=== PATIENT | male | born 1955 | race Hispanic/Latino ===

== ENCOUNTER 2018-06-26 21:13 | Emergency (ER) | payer BC ==
[2018-06-26 21:48] LABS: Absolute Lymphocytes (CBC) 2.2 K/uL (0.7-4.9); Absolute Monocytes 0.6 K/uL (0.1-1.3); Absolute Neutrophil 5.6 K/uL (1.8-8.0); Basophils % 0.4 % (0-1.3); Eosinophils % 2.2 % (0-4.4); Lymphocytes % 25.9 % (15.3-44.8); Monocytes % 6.5 % (3.3-12.3); RBC Red Blood Cell Count 2.26 M/uL (4.33-5.43)
[2018-06-26 21:51] LABS: Hematocrit 20.7 % (39.6-49.0)
[2018-06-26 22:00] LABS: Protime INR 1.11
[2018-06-26 22:10] LABS: ALT/SGPT 22 U/L (12-78); AST/SGOT 14 U/L (15-37); Albumin 2.8 g/dL (3.4-5.0); Alkaline Phosphatase 67 U/L (45-117); BUN Blood Urea Nitrogen 37 mg/dL (7-18); Bicarbonate 25 mmol/L (21-32); Bilirubin Direct < 0.1 mg/dL (0-0.2); Bilirubin Total 0.3 mg/dL (0.2-1.0); Glucose Level 128 mg/dL (74-106); Magnesium 1.8 mg/dL (1.8-2.4); NT PRO-BNP 12 pg/mL (<125); Potassium 4.1 mmol/L (3.5-5.1); Sodium Level 146 mmol/L (136-145); Troponin (Emerg Dept Use Only) < 0.02 ng/mL (0.0-0.045)
--- NOTE | 2018-06-26 23:16 | ER ---
Nurse's Notes [facility] Name: Mp Moreno Age: 62 yrs Sex: Male : 1955 Arrival Date: 06/26/2018 Time: 21:15 Bed 6 Private MD: Diagnosis: Gastrointestinal hemorrhage, unspecified;Acute peptic ulcer, site unspecified, with hemorrhage Presentation: 06/26 21:10 Presenting complaint: Patient states: that he has been having chest pressure on and off fc all day. When it comes it last only a couple of minutes. Denies any nausea or vomiting or shortness of breath. Has also been feeling weak and family stated he looked pale. Having black stools x 2 days. Transition of care: patient was not received from another setting of care. Onset of symptoms was June 26, 2018. Risk Assessment: Do you want to hurt yourself or someone else? Patient reports no desire to harm self or others. Initial Sepsis Screen: Does the patient meet any 2 criteria? HR > 90 bpm. Yes Does the patient have a suspected source of infection? No. Patient's initial sepsis screen is negative. Care prior to arrival: Medication(s) given: Normal saline infusion, 200 ml IV initiated. 20 GA, in the left antecubital area. 21:10 Method Of Arrival: EMS: [facility] 21:10 Acuity: ANTONETTE 3 fc Historical: - Allergies: 21:25 NKDA; fc - Home Meds: 21:25 ezetimibe oral oral 1 tab once daily [Active]; aspirin 81 mg Oral chew 1 tab once daily fc [Active]; losartan 50 mg oral tab 1 tab once daily [Active]; niacin 500 mg Oral cpER 1 caps nightly [Active]; simvastatin 40 mg Oral tab 1 tab once daily [Active]; - PMHx: 21:25 Hyperlipidemia; Hypertension; Myocardial infarction; High Cholesterol; Kidney stones; fc - PSHx: 21:25 Heart stents; Appendectomy; Lithotripsy; fc - Immunization history:: Last tetanus immunization: unknown. - Social history:: Smoking status: Patient/guardian denies using tobacco, Patient uses alcohol, occasionally. - Ebola Screening: : Patient negative for fever greater than or equal to 101.5 degrees Fahrenheit, and additional compatible Ebola Virus Disease symptoms Patient denies exposure to infectious person Patient denies travel to an Ebola-affected area in the 21 days before illness onset. Screenin:10 Abuse screen: Denies threats or abuse. Nutritional screening: No deficits noted. fc Tuberculosis screening: No symptoms or risk factors identified. Fall Risk None identified. Assessment: 22:11 General: Appears in no apparent distress. Behavior is calm, cooperative. Pain: ak1 Complains of pain in chest Pain does not radiate. Pain began today. Neuro: No deficits noted. Cardiovascular: Reports chest pain, weakness. Respiratory: No deficits noted. GI: Abdomen is round Bowel sounds present X 4 quads. Abd is soft and non tender X 4 quads. Reports black stools. : No signs and/or symptoms were reported regarding the genitourinary system. EENT: No signs and/or symptoms were reported regarding the EENT system. Derm: Skin is pale, Skin temperature is cool. Musculoskeletal: No signs and/or symptoms reported regarding the musculoskeletal system. 22:45 Reassessment: pt family, Inessa Moreno, can be contacted at [phone]. family is ak1 leaving to go home to gather personal belongings. 22:48 Reassessment: Patient appears in no apparent distress at this time. Patient and/or cc3 family updated on plan of care and expected duration. Pain level reassessed. Patient is alert, oriented x 3, equal unlabored respirations, skin warm/dry/pink. Hemoglobin of 6.8, patient consented for PRBC transfusion signed by the patient himself. 23:29 Reassessment: No changes from previously documented assessment. Patient and/or family ak1 updated on plan of care and expected duration. Pain level reassessed. Patient is alert, oriented x 3, equal unlabored respirations, skin warm/dry/pink. pt and family informed of need to transfer. pt report called to Cassidy LYON for [facility] 1 Bed4. Cassidy informed of 1 unit of PRBC to be infusing in route to [facility]. 23:35 Reassessment: Patient appears in no apparent distress at this time. Patient and/or cc3 family updated on plan of care and expected duration. Pain level reassessed. Patient is alert, oriented x 3, equal unlabored respirations, skin warm/dry/pink. First unit of PRBC with unit number [id number] counterchecked and countersigned with charge nurse Becky, baseline vital signs taken and recorded then started the blood transfusion. Closely monitored the patient. See transfusion record form for charted vital signs. Patient denies pain at this time. 06/27 00:05 Reassessment: Patient appears in no apparent distress at this time. Patient and/or cc3 family updated on plan of care and expected duration. Pain level reassessed. Patient is alert, oriented x 3, equal unlabored respirations, skin warm/dry/pink. Monitored the patient closely for any untoward blood transfusion reactions. Patient denies pain at this time. 00:23 Reassessment: Patient appears in no apparent distress at this time. Patient and/or cc3 family updated on plan of care and expected duration. Pain level reassessed. Patient is alert, oriented x 3, equal unlabored respirations, skin warm/dry/pink. [facility] came for transport and handed over to EMS staff [facility] for continuity of care and management with ongoing first unit of PRBC transfusion. Patient denies pain at this time. Patient states feeling better. Vital Signs: 06/26 21:10 BP 115 / 62; Pulse 92; Resp 16; Temp 97.9(O); Pulse Ox 100% on R/A; Weight 68.04 kg fc (R); Height 5 ft. 5 in. (165.10 cm); Pain 0/10; 22:15 BP 107 / 60; Pulse 87; Resp 16; Pulse Ox 100% on R/A; ak1 23:00 BP 117 / 64; Pulse 77; Resp 17; Pulse Ox 100% on R/A; ak1 23:35 BP 112 / 72; Pulse 77; Resp 18 S; Temp 97.9(O); Pulse Ox 99% on R/A; cc3 23:40 BP 110 / 64; Pulse 80; Resp 17 S; Temp 97.9(O); Pulse Ox 100% on R/A; cc3 23:45 BP 112 / 64; Pulse 81; Resp 15 S; Temp 97.9(O); Pulse Ox 100% on R/A; cc3 23:50 BP 107 / 66; Pulse 78; Resp 19 S; Temp 98.1(O); Pulse Ox 99% on R/A; cc3 06/27 00:05 BP 112 / 65; Pulse 73; Resp 18 S; Temp 97.9(O); Pulse Ox 98% on R/A; cc3 06/26 21:10 Body Mass Index 24.96 (68.04 kg, 165.10 cm) ED Course: 06/26 21:10 Arm band placed on Patient placed in an exam room, on a stretcher. fc 21:10 Patient has correct armband on for positive identification. Placed in gown. Bed in low fc position. Call light in reach. Side rails up X2. telemetry monitor on. Pulse ox on. NIBP on. 21:10 No provider procedures requiring assistance completed. Maintain EMS IV. Dressing fc intact. Good blood return noted. Site clean \T\ dry. Gauge \T\ site: 20 gauge to left a/c. Patient maintains SpO2 saturation greater than 95% on room air. 21:15 Patient arrived in ED. ds1 21:18 Allan Sandoval MD is Attending Physician. 21:21 Triage completed. 21:22 Bridgette Kiser is Primary Nurse. cc3 21:30 XRAY Chest (1 view) In Process Unspecified. EDMS 21:51 Notified ED physician of a critical lab result(s). 6.8 Hgb, Hct. 20.7. ak1 23:31 Consent for blood and/or blood product transfusion explained by staff, signed by ak1 patient. 23:31 Patient transferred, IV remains in place. ak1 Administered Medications: No medications were administered Outcome: 23:16 ER care complete, transfer ordered by . 23:31 Transferred by ground EMS to [facility], Transfer form completed. ak1 X-rays sent w/ patient. Note: report given to Cassidy LYON for [facility] 1 Bed4. 23:31 Instructed on the need for transfer. 06/27 00:30 Condition: stable cc3 00:32 Patient left the ED. cc3 Signatures: Dispatcher [employer] EDMS Becky Dotson, RN SONALI María Carrasco ds1 Barbie Peterson RN RN ak Allan Sandoval MD MD Bridgette Kiser cc3 Corrections: (The following items were deleted from the chart) 00:03 06/26 23:35 Reassessment: Patient appears in no apparent distress at this time. Patient cc3 and/or family updated on plan of care and expected duration. Pain level reassessed. Patient is alert, oriented x 3, equal unlabored respirations, skin warm/dry/pink. First unit of PRBC with unit number [id number] counterchecked and countersigned with charge nurse Becky, baseline vital signs taken and recorded then started the blood transfusion. Closely monitored the patient. Patient denies pain at this time. cc3
--- NOTE | 2018-06-26 23:16 | EDPHYS ---
Physician Documentation [facility] [place], [place] Name: Mp Moreno Age: 62 yrs Sex: Male : 1955 Arrival Date: 06/26/2018 Time: 21:15 Bed 6 Private MD: ED Physician Allan Sandoval HPI: 06/26 23:11 This 62 yrs old Male presents to ER via EMS with complaints of Chest Pressure. gs 23:11 The patient or guardian reports chest pain that is located primarily in the anterior gs chest wall. Onset: this morning. The pain does not radiate. Associated signs and symptoms: Pertinent positives: shortness of breath, black tarry stool, Pertinent negatives: abdominal pain. The chest pain is described as a heaviness. Duration: The patient or guardian reports multiple episodes, that are intermittent, that wax and wane, with no pattern. Modifying factors: the symptoms are aggravated by exertion. Severity of pain: At its worst the pain was moderate in the emergency department the pain is unchanged. The patient has experienced similar episodes in the past, a few times. Historical: - Allergies: 21:25 NKDA; fc - Home Meds: 21:25 ezetimibe oral oral 1 tab once daily [Active]; aspirin 81 mg Oral chew 1 tab once daily fc [Active]; losartan 50 mg oral tab 1 tab once daily [Active]; niacin 500 mg Oral cpER 1 caps nightly [Active]; simvastatin 40 mg Oral tab 1 tab once daily [Active]; - PMHx: 21:25 Hyperlipidemia; Hypertension; Myocardial infarction; High Cholesterol; Kidney stones; fc - PSHx: 21:25 Heart stents; Appendectomy; Lithotripsy; fc - Immunization history:: Last tetanus immunization: unknown. - Social history:: Smoking status: Patient/guardian denies using tobacco, Patient uses alcohol, occasionally. - Ebola Screening: : Patient negative for fever greater than or equal to 101.5 degrees Fahrenheit, and additional compatible Ebola Virus Disease symptoms Patient denies exposure to infectious person Patient denies travel to an Ebola-affected area in the 21 days before illness onset. ROS: 23:11 All other systems are negative. gs Exam: 23:11 Head/Face: Normocephalic, atraumatic. Eyes: Pupils equal round and reactive to light, gs extra-ocular motions intact. Lids and lashes normal. Conjunctiva and sclera are non-icteric and not injected. Cornea within normal limits. Periorbital areas with no swelling, redness, or edema. ENT: Nares patent. No nasal discharge, no septal abnormalities noted. Tympanic membranes are normal and external auditory canals are clear. Oropharynx with no redness, swelling, or masses, exudates, or evidence of obstruction, uvula midline. Mucous membranes moist. Neck: Trachea midline, no thyromegaly or masses palpated, and no cervical lymphadenopathy. Supple, full range of motion without nuchal rigidity, or vertebral point tenderness. No Meningismus. Chest/axilla: Normal chest wall appearance and motion. Nontender with no deformity. No lesions are appreciated. Respiratory: Lungs have equal breath sounds bilaterally, clear to auscultation and percussion. No rales, rhonchi or wheezes noted. No increased work of breathing, no retractions or nasal flaring. Abdomen/GI: Soft, non-tender, with normal bowel sounds. No distension or tympany. No guarding or rebound. No evidence of tenderness throughout. Back: No spinal tenderness. No costovertebral tenderness. Full range of motion. Skin: Warm, dry with normal turgor. Normal color with no rashes, no lesions, and no evidence of cellulitis. MS/ Extremity: Pulses equal, no cyanosis. Neurovascular intact. Full, normal range of motion. Neuro: Awake and alert, GCS 15, oriented to person, place, time, and situation. Cranial nerves II-XII grossly intact. Motor strength 5/5 in all extremities. Sensory grossly intact. Cerebellar exam normal. Normal gait. 23:11 Constitutional: The patient appears alert, awake. 23:11 Cardiovascular: Rate: normal, Rhythm: regular, Pulses: no pulse deficits are appreciated, Heart sounds: murmur, systolic, grade 2 over 6, Edema: is not appreciated. 23:11 ECG was reviewed by the Attending Physician. Vital Signs: 21:10 BP 115 / 62; Pulse 92; Resp 16; Temp 97.9(O); Pulse Ox 100% on R/A; Weight 68.04 kg fc (R); Height 5 ft. 5 in. (165.10 cm); Pain 0/10; 22:15 BP 107 / 60; Pulse 87; Resp 16; Pulse Ox 100% on R/A; ak1 23:00 BP 117 / 64; Pulse 77; Resp 17; Pulse Ox 100% on R/A; ak1 23:35 BP 112 / 72; Pulse 77; Resp 18 S; Temp 97.9(O); Pulse Ox 99% on R/A; cc3 23:40 BP 110 / 64; Pulse 80; Resp 17 S; Temp 97.9(O); Pulse Ox 100% on R/A; cc3 23:45 BP 112 / 64; Pulse 81; Resp 15 S; Temp 97.9(O); Pulse Ox 100% on R/A; cc3 23:50 BP 107 / 66; Pulse 78; Resp 19 S; Temp 98.1(O); Pulse Ox 99% on R/A; cc3 06/27 00:05 BP 112 / 65; Pulse 73; Resp 18 S; Temp 97.9(O); Pulse Ox 98% on R/A; cc3 06/26 21:10 Body Mass Index 24.96 (68.04 kg, 165.10 cm) fc MDM: 06/26 21:56 Patient medically screened. 23:11 Differential diagnosis: abnormal EKG, coronary artery disease congestive heart failure gs gi bleed. Data reviewed: vital signs, nurses notes, lab test result(s), EKG, radiologic studies. 06/26 21:18 Order name: Basic Metabolic Panel; Complete Time: 22:29 06/26 21:18 Order name: CBC with Diff; Complete Time: 21:56 06/26 21:18 Order name: LFT's; Complete Time: 22:29 06/26 21:18 Order name: Magnesium; Complete Time: 22:29 06/26 21:18 Order name: NT PRO-BNP; Complete Time: 22:29 06/26 21:18 Order name: PT-INR; Complete Time: 22:29 06/26 21:18 Order name: Troponin (emerg Dept Use Only); Complete Time: 22:29 06/26 21:18 Order name: XRAY Chest (1 view) 06/26 21:18 Order name: EKG; Complete Time: 21:20 06/26 21:18 Order name: Cardiac monitoring; Complete Time: 21:32 06/26 21:18 Order name: Type And Screen 06/26 22:37 Order name: Packed RBC Leukored -1 [facility] 06/26 23:05 Order name: ABO/RH no charge; Complete Time: 23:16 [facility] 06/26 21:18 Order name: EKG - Nurse/Tech; Complete Time: 21:32 06/26 21:18 Order name: IV Saline Lock; Complete Time: 21:32 06/26 21:18 Order name: Labs collected and sent; Complete Time: :40 06/26 21:18 Order name: O2 Per Protocol; Complete Time: :33 06/26 21:18 Order name: O2 Sat Monitoring; Complete Time: :33 EC:11 Rate is 83 beats/min. Rhythm is regular. FL interval is normal. QRS interval is normal. gs Q waves are Old. T waves are Flattened. No ST changes noted. Clinical impression: NSR w/ Non-specific ST/T Changes. Interpreted by me. Administered Medications: No medications were administered Disposition: 23:11 Critical Care:. Disposition: 06/26/18 23:16 Transfer ordered to [facility]. Diagnosis are Gastrointestinal hemorrhage, unspecified, Acute peptic ulcer, site unspecified, with hemorrhage. - Reason for transfer: Higher level of care. - Accepting physician is [facility]. - Condition is Stable. - Problem is new. - Symptoms have improved. Critical care time excluding procedures: 23:11 Critical care time: Bedside Care: 10 minutes, Consultation: 10 minutes, Family gs Intervention: 10 minutes. Total time: 30 minutes Signatures: Dispatcher [employer] [facility] Becky Dotson RN RN Allan Roberts MD MD Bridgette Kiser cc3 Corrections: (The following items were deleted from the chart) 06/27 00:32 06/26 23:16 06/26/2018 23:16 Transfer ordered to [facility]. cc3 Diagnosis is Gastrointestinal hemorrhage, unspecified; Acute peptic ulcer, site unspecified, with hemorrhage. Reason for transfer: Higher level of care. Accepting physician is [facility]kit[facility]. Condition is Stable. Problem is new. Symptoms have improved.
[2018-06-26] MEDS ORDERED: NA CHLORIDE 0.9% 500 ML ONE (23:31)
[2018-06-27 01:53] VITALS: BP 107/66; TEMP 98.1; O2SAT 99
--- NOTE | 2018-06-27 08:00 | RAD REPORT ---
EXAM DESCRIPTION: RAD - Chest Single View - 06/26/2018 9:31 pm CLINICAL HISTORY: Chest pain and pressure COMPARISON: July 2015 TECHNIQUE: AP portable chest image was obtained 2130 hours . FINDINGS: Lung volumes are low. No peripheral mass, consolidation or failure finding. Lung markings are similar to comparison. Heart and vasculature are normal. No measurable pleural effusion and no pn eumothorax. No acute bony abnormality seen. No acute aortic findings suspected. IMPRESSION: No acute cardiopulmonary process. No significant interval change.
--- NOTE | 2018-06-27 16:32 | EKG ---
Test Date: 2018-06-26 Test Time: 21:17:47 Box Spinner: CLEMENTE MEASUREMENT RESULTS: Intervals: Rate: 83 OK: 192 QRSD: 74 QT: 368 QTc: 432 [place]: P: 38 OK: 192 QRS: 0 T: 93 INTERPRETIVE STATEMENTS: Normal sinus rhythm Anteroseptal infarct, age undetermined Abnormal ECG Compared to ECG 07/19/2015 06:27:26 Sinus bradycardia no longer present Left-axis deviation no longer present Myocardial infarct finding still present Electronically Signed On 06-27-18 16:31:28 CDT by Rudy Bustamante
== END 2018-06-27 00:32 | disposition short-term general hospital (02) ==
LOC: ER 21:13
PROC: 30233N1 Transfusion of Nonautologous Red Blood Cells into Peripheral Vein, Percutaneous Approach (ICD-10-PCS; principal; 2018-06-27)
DX: K27.0 Acute peptic ulcer, site unspecified, with hemorrhage (principal); I10 Essential (primary) hypertension; E78.5 Hyperlipidemia, unspecified; E78.00 Pure hypercholesterolemia, unspecified; I25.2 Old myocardial infarction; Z79.82 Long term (current) use of aspirin; Z95.818 Presence of other cardiac implants and grafts
CPT/HCPCS: 36415; 71045; 80048; 80076; 83735; 83880; 84484; 85025; 85610; 86850; 86900; 86901; 93005; 99285; P9016

== ENCOUNTER 2018-09-19 18:09 | Emergency (ER) | payer BC ==
--- OUTSIDE RECORDS SUMMARY | 2018-09-19 18:13 | XMS REPORT | Clinical Summary ---
:1955 Author Organization [facility] Address [address] [place] [address] Care Team Providers Name Role Phone Unavailable Primary Care Provider Unavailable Allergies No Known Allergies Medications Medication Sig Dispensed Refills Start Date End Date Status ezetimibe (ZETIA) 10 Take 10 mg by 0 Active mg mouth daily. tabletIndications: hyperlipidemia aspirin 81 MG EC Take 81 mg by 0 Active tabletIndications: mouth daily. myocardial infarction prevention, thrombosis prevention after PCI niacin (SLO-NIACIN) Take 500 mg by 0 Active 500 mg tablet mouth 2 (two) times daily with breakfast and dinner. losartan (COZAAR) 50 Take 50 mg by 0 Active MG tablet mouth daily. pantoprazole Take 1 tablet 60 tablet 2 07/01/2018 Active (PROTONIX) 40 MG (40 mg total) 9 tablet by mouth 2 (two) times daily for 90 days. nmpd-fwtgrmdgrjdmx-i Take 1 tablet 120 tablet 0 07/01/2018 Active inerals by mouth daily 9 (THERAGRAN-M) 9 mg for 120 days. iron-400 mcg Tab tablet simvastatin (ZOCOR) Take 1 tablet 0 07/16/2018 Active 40 MG tablet (40 mg total) by mouth nightly. simvastatin (ZOCOR) Take 40 mg by 0 Discontinued 40 MG tablet mouth nightly. 9 clarithromycin Take 1 tablet 28 tablet 0 07/01/2018 (BIAXIN) 500 MG (500 mg total) 9 tablet by mouth 2 (two) times daily for 14 days. amoxicillin (AMOXIL) Take 2 56 capsule 0 07/01/2018 500 MG capsule capsules 9 (1,000 mg total) by mouth 2 (two) times daily for 14 days. Active Problems Problem Noted Date Duodenal ulcer with hemorrhage but without obstruction 06/28/2018 Anemia, secondary 06/28/2018 Hiatal hernia 06/28/2018 Melena 06/28/2018 Hyperlipidemia 06/28/2018 GIB (gastrointestinal bleeding) 06/27/2018 Coronary artery disease involving [place] coronary artery of [place] heart 06/27 without angina pectoris Encounters Date Type Specialty Care Team Description 06/27/2018 Anesthesia Event Gastroenterology Saloni Light CRNA 06/27/2018 Surgery Gastroenterology Ariana, UPPER ENDOSCOPY,BIOPSY MD Marilee 06/27/2018 Hospital Cardiology Agustina, Gastrointestinal hemorrhage, unspecified gastrointestinal hemorrhage type; - Encounter Babith Anemia, secondary; 07/01/2018 MD Rasheed Coronary artery disease involving [place] coronary artery of [place] heart without angina pectoris; Dorcas Duodenal ulcer with hemorrhage but without obstruction; Eugene Limon Hyperlipidemia, unspecified hyperlipidemia type MD Miguel Tinsley Narendra, MD 06/27/2018 Orders Only General Internal Medicine 06/27/2018 Travel after 09/18/2017 Family History Medical History Relation Name Comments Heart disease Father Diabetes Mother Hypertension Mother Relation Name Status Comments Father Mother Social History Tobacco Use Types Packs/Day Years Used Date Former Smoker Smokeless Tobacco: Former User Comments: PAST SMOKER (SMOKED FOR 3 [id number] - [id number]) Alcohol Use Drinks/Week oz/Week Comments Yes 5 Cans of beer 3.0 ON OCCASION WEEKEND Sex Assigned at Date Recorded Not on file Job Start Date Occupation Industry Not on file Not on file Not on file Travel History Travel Start Travel End No recent travel history available. Last Filed Vital Signs Vital Sign Reading Time Taken Blood Pressure 139/72 07/01/2018 7:00 AM CDT Pulse 58 07/01/2018 7:00 AM CDT Temperature 35.9 C (96.6 F) 07/01/2018 7:00 AM CDT Respiratory Rate 17 07/01/2018 7:00 AM CDT Oxygen Saturation 98% 07/01/2018 7:00 AM CDT Inhaled Oxygen Concentration - - Weight 67.9 kg (149 lb 9.6 oz) 06/29/2018 6:00 AM CDT Height 172.7 cm (5' 8") 06/27/2018 1:41 AM CDT Body Mass Index 22.75 06/29/2018 6:00 AM CDT Plan of Treatment Not on file Procedures Procedure Name Priority Date/Time Associated Comments Diagnosis REPORT OF PROCEDURE - 2018 9:41 ENDOSCOPY SCAN AM CDT RHYTHM STRIP - SCAN 2018 9:41 AM CDT TRANSFUSION SERVICE 07/02/2018 6:00 REPORT - SCAN PM CDT PREPARE LEUKO-REDUCED Routine 07/02/2018 12:41 Results for this RBC AM CDT procedure are in the results section. TRANSFUSION SERVICE 07/01/2018 6:00 REPORT - SCAN PM CDT CBC W/PLT COUNT & Routine 07/01/2018 8:34 Results for this AUTO DIFFERENTIAL AM CDT procedure are in the results section. CBC W/PLT COUNT & Routine 07/01/2018 8:34 Results for this AUTO DIFFERENTIAL AM CDT procedure are in the results section. BASIC METABOLIC PANEL Routine 07/01/2018 3:51 Results for this (7) AM CDT procedure are in the results section. CBC W/PLT COUNT & Routine 06/30/2018 8:17 Results for this AUTO DIFFERENTIAL PM CDT procedure are in the results section. CBC W/PLT COUNT & Routine 06/30/2018 8:17 Results for this AUTO DIFFERENTIAL PM CDT procedure are in the results section. TRANSFUSE Routine 06/30/2018 4:16 LEUKO-REDUCED RED PM CDT BLOOD CELLS CBC W/PLT COUNT & Routine 06/30/2018 8:43 Results for this AUTO DIFFERENTIAL AM CDT procedure are in the results section. TYPE AND SCREEN, Routine 06/30/2018 8:43 Results for this AUTOMATED AM CDT procedure are in the results section. CBC W/PLT COUNT & Routine 06/30/2018 8:43 Results for this AUTO DIFFERENTIAL AM CDT procedure are in the results section. BASIC METABOLIC PANEL Routine 06/30/2018 4:48 Results for this (7) AM CDT procedure are in the results section. CBC W/PLT COUNT & Routine 06/29/2018 10:35 Results for this AUTO DIFFERENTIAL PM CDT procedure are in the results section. CBC W/PLT COUNT & Routine 06/29/2018 10:35 Results for this AUTO DIFFERENTIAL PM CDT procedure are in the results section. CBC W/PLT COUNT & Routine 06/29/2018 10:00 Results for this AUTO DIFFERENTIAL AM CDT procedure are in the results section. CBC W/PLT COUNT & Routine 06/29/2018 10:00 Results for this AUTO DIFFERENTIAL AM CDT procedure are in the results section. MAGNESIUM Routine 06/29/2018 4:37 Results for this AM CDT procedure are in the results section. IRON, TIBC, % SAT. STAT 06/29/2018 4:37 Results for this (WITHOUT FERRITIN) AM CDT procedure are in the results section. BASIC METABOLIC PANEL Routine 06/29/2018 4:37 Results for this (7) AM CDT procedure are in the results section. PROTHROMBIN TIME/INR Routine 06/29/2018 4:37 Results for this AM CDT procedure are in the results section. CBC W/PLT COUNT & STAT 06/28/2018 11:49 Results for this AUTO DIFFERENTIAL PM CDT procedure are in the results section. CBC W/PLT COUNT & STAT 06/28/2018 11:49 Results for this AUTO DIFFERENTIAL PM CDT procedure are in the results section. TRANSFUSION SERVICE 06/28/2018 6:03 REPORT - SCAN PM CDT CBC W/PLT COUNT & STAT 06/28/2018 4:51 Results for this AUTO DIFFERENTIAL PM CDT procedure are in the results section. CBC W/PLT COUNT & STAT 06/28/2018 4:51 Results for this AUTO DIFFERENTIAL PM CDT procedure are in the results section. TROPONIN I STAT 06/28/2018 4:51 Results for this PM CDT procedure are in the results section. CBC W/PLT COUNT & STAT 06/28/2018 10:29 Results for this AUTO DIFFERENTIAL AM CDT procedure are in the results section. CBC W/PLT COUNT & STAT 06/28/2018 10:29 Results for this AUTO DIFFERENTIAL AM CDT procedure are in the results section. IRON, TIBC, % SAT. STAT 06/28/2018 3:58 Results for this (WITHOUT FERRITIN) AM CDT procedure are in the results section. BASIC METABOLIC PANEL Routine 06/28/2018 3:58 Results for this (7) AM CDT procedure are in the results section. PROTHROMBIN TIME/INR Routine 06/28/2018 3:58 Results for this AM CDT procedure are in the results section. CBC W/PLT COUNT & STAT 06/27/2018 11:22 Results for this AUTO DIFFERENTIAL PM CDT procedure are in the results section. CBC W/PLT COUNT & STAT 06/27/2018 11:22 Results for this AUTO DIFFERENTIAL PM CDT procedure are in the results section. REPORT OF PROCEDURE - 06/27/2018 2:07 ENDOSCOPY URL PM CDT CBC W/PLT COUNT & STAT 06/27/2018 1:08 Results for this AUTO DIFFERENTIAL PM CDT procedure are in the results section. CBC W/PLT COUNT & STAT 06/27/2018 1:08 Results for this AUTO DIFFERENTIAL PM CDT procedure are in the results section. TROPONIN I STAT 06/27/2018 1:08 Results for this PM CDT procedure are in the results section. TISSUE EXAM AP Routine 06/27/2018 11:24 Results for this AM CDT procedure are in the results section. UPPER 06/27/2018 10:00 Melena ENDOSCOPY,BIOPSY AM CDT FERRITIN Routine 06/27/2018 3:15 Results for this AM CDT procedure are in the results section. IRON, TIBC, % SAT. STAT 06/27/2018 3:15 Results for this (WITHOUT FERRITIN) AM CDT procedure are in the results section. RETICULOCYTE COUNT Routine 06/27/2018 3:15 Results for this AM CDT procedure are in the results section. TROPONIN I STAT 06/27/2018 3:15 Results for this AM CDT procedure are in the results section. XR CHEST 1 VIEW STAT 06/27/2018 3:03 Results for this PORTABLE/BEDSIDE AM CDT procedure are in the results section. ECG 12-LEAD Routine 06/27/2018 2:47 AM CDT Procedure Note - Interface, External Ris In - 06/27/2018 2:58 AM CDT Ventricular Rate 71 BPM Atrial Rate 71 BPM P-R Interval 200 ms QRS Duration 80 ms Q-T Interval 386 ms QTC Calculation(Bazett) 419 ms P [place] 44 degrees R [place] -16 degrees T [place] 68 degrees Normal sinus rhythm Septal infarct , age undetermined Abnormal ECG No previous ECGs available ECG 12-LEAD Routine 06/27/2018 2:47 AM CDT ABORH, MANUAL STAT 06/27/2018 2:33 AM CDT CBC W/PLT COUNT & AUTO STAT 06/27/2018 2:18 AM CDT Results for this DIFFERENTIAL procedure are in the results section. TYPE AND SCREEN, AUTOMATED STAT 06/27/2018 2:18 AM CDT LACTIC ACID, VENOUS STAT 06/27/2018 2:18 AM CDT COMPREHENSIVE METABOLIC STAT 06/27/2018 2:18 AM CDT Results for this PANEL procedure are in the results section. PROTHROMBIN TIME/INR STAT 06/27/2018 2:18 AM CDT PT/APTT STAT 06/27/2018 2:18 AM CDT CBC W/PLT COUNT & AUTO STAT 06/27/2018 2:18 AM CDT Results for this DIFFERENTIAL procedure are in the results section. after 09/18/2017 Results EKG-SCANNED (2018 9:41 AM CDT) Narrative Performed At RHYTHM STRIP - SCAN (2018 9:41 AM CDT) Narrative Performed At TRANSFUSION SERVICE REPORT - SCAN (07/02/2018 6:00 PM CDT)Only the most recent of3 resultswithin the time period is included. Narrative Performed At Prepare Leuko-Red RBC (07/02/2018 12:41 AM CDT) CROSSMATCH COMPATIBLE [facility] [place] Unit ABO O Pos [facility] [place] UNIT NUMBER [id number] [facility] [place] Status TX_TIMEINCHART [facility] [place] Blood Bank Product RED BLOOD CELLS [facility] [place] PRODUCT CODE [id number] [facility] [place] Specimen Other Performing Organization Address City/State/Zipcode Phone Number [facility] [place] CBC with platelet count + automated diff (07/01/2018 8:34 AM CDT)Only the most recent of11 resultswithin the time period is included. WBC 10.1 3.5 - 10.5 K/L [facility] RBC 3.22 (L) 4.63 - 6.08 M/L [facility] Hemoglobin 9.8 (L) 13.7 - 17.5 GM/DL [facility] Hematocrit 29.5 (L) 40.1 - 51.0 % [facility] MCV 91.6 79.0 - 92.[address] [facility] MCH 30.4 25.7 - 32.[address] [facility] MCHC 33.2 32.3 - 36.5 GM/DL [facility] RDW 15.3 (H) 11.6 - 14.4 % [facility] Platelets 241 150 - 450 K/CU MM [facility] MPV 10.3 9.4 - 12.[address] [facility] nRBC 1 (H) 0 - 0 /[address] [facility] % Neutros 69 % [facility] % Lymphs 20 % [facility] % Monos 6 % [facility] % Eos 3 % [facility] % Baso 0 % [facility] # Neutros 6.99 (H) 1.78 - 5.38 K/L [facility] # Lymphs 1.98 1.32 - 3.57 K/L [facility] # Monos 0.65 0.30 - 0.82 K/L [facility] # Eos 0.27 0.04 - 0.54 K/L [facility] # Baso 0.04 0.01 - 0.08 K/L [facility] Immature Granulocytes-Relative 2 (H) 0 - 1 % [facility] Specimen Blood Performing Organization Address City/State/Zipcode Phone Number [facility] [address] [place] [address] CENTER Basic Metabolic Panel (07/01/2018 3:51 AM CDT)Only the most recent of4 resultswithin the time period is included. Sodium 143 136 - 145 meq/L [facility] Potassium 3.7 3.5 - 5.1 meq/L [facility] Chloride 112 (H) 98 - 107 meq/L [facility] CO2 26 22 - 29 meq/L [facility] BUN 11 7 - 21 mg/dL [facility] Creatinine 0.79 0.57 - 1.25 mg/dL [facility] Glucose 91 70 - 105 mg/dL [facility] Calcium 8.1 (L) 8.4 - 10.2 mg/dL [facility] EGFR Comment: INSUFFICIENT CLINICAL mL/min/1.73 sq m [facility] DATA TO CALCULATE ESTIMATED MEDICAL CENTER GFR. Specimen Blood Performing Organization Address City/[facility] Phone Number [address] [address] CENTER Transfuse Leuko-Red RBC (06/30/2018 4:16 PM CDT)Only the most recent of2 resultswithin the time period is included.Type and screen, automated (2018 8:43 AM CDT)Only the most recent of2 resultswithin the time period is included. ABO/RH AUTOMATED (BEAKER) O POSITIVE [facility] Ab Scrn NEGATIVE [facility] Specimen Blood Performing Organization Address City/[facility] Phone Number [address] [address] Iron, TIBC, % sat. (without ferritin) (06/29/2018 4:37 AM CDT)Only the most recent of3 resultswithin the time period is included. Iron 34.0 (L) 40.0 - 160.0 ug/dL [facility] TIBC 196 (L) 250 - 450 ug/dL [facility] Iron % Saturation 17 (L) 20 - 55 % [facility] Specimen Blood Narrative Performed At Can do this with the next CBC [facility] Performing Organization Address City/[facility] Phone Number [address] [address] [place] Prothrombin time/INR (06/29/2018 4:37 AM CDT)Only the most recent of3 resultswithin the time period is included. Protime 13.4 11.7 - 14.[address] [facility] INR 1.1 <=5.9 [facility] Specimen Blood Narrative Performed At RECOMMENDED COUMADIN/WARFARIN INR THERAPY [facility] RANGES STANDARD DOSE: 2.0 - 3.0 Includes: PROPHYLAXIS for venous thrombosis, systemic embolization; TREATMENT for venous thrombosis and/or pulmonary embolus. HIGH RISK: Target INR is 2.5-3.5 for patients with mechanical heart valves. Performing Organization Address [facility] Phone Number [address] [address] [phone] [place] Magnesium (06/29/2018 4:37 AM CDT) Magnesium 1.8 1.6 - 2.6 mg/dL [facility] Specimen Blood Performing Organization Address [facility] Phone Number [address] [address] [place] Troponin I (06/28/2018 4:51 PM CDT)Only the most recent of3 resultswithin the time period is included. Troponin I 0.02 0.00 - 0.03 ng/mL [facility] Specimen Blood Narrative Performed At Troponin I (TnI) levels must be interpreted [facility] in the context of the presenting symptoms and the clinical findings. Elevated TnI levels indicate myocardial damage, but are not specific for ischemic heart disease. Elevated TnI levels are seen in patients with other cardiac conditions (including myocarditis and congestive heart failure), and slight TnI elevations occur in patients with other conditions, including sepsis, renal failure, acidosis, acute neurological disease, and persistent tachyarrhythmia. Performing Organization Address [facility] Phone Number [facility] [address] [place] [address] CENTER REPORT OF PROCEDURE - ENDOSCOPY URL (06/27/2018 2:07 PM CDT) Narrative Performed At Tissue Exam (06/27/2018 11:24 AM CDT) Case Report Surgical Pathology Report Case: [id number] [facility] Authorizing Provider:Marilee Lane MDCollected: 06/27/2018 1124 [facility] Ordering Location: [place] [address] ICUReceived: 06/27/2018 1528 Pathologist: Binu Magallon MD Specimen:Biopsy, Gastric, random gastric body and antrum DIAGNOSIS PART A RANDOM GASTRIC BIOPSY: [facility] ANTRAL MUCOSA WITH FOCALLY ACTIVE CHRONIC GASTRITIS. [facility] OXYNTIC MUCOSA WITH MILD CHRONIC INACTIVE GASTRITIS. NEGATIVE FOR INTESTINAL METAPLASIA, DYSPLASIA, OR INVASIVE CARCINOMA. HELICOBACTER ORGANISMS ARE IDENTIFIED ON WARTHIN STARRY SPECIAL STAIN. Signing Pathologist Direct Phone Line: [phone] CPT Code(s) 16935, [address] [facility] CLINICAL HISTORY Pre and postop diagnosis: melena [facility] SPECIMEN SOURCE Biopsy, gastric, random gastric [facility] body and antrum [facility] GROSS DESCRIPTION Received in formalin labeled [facility] with the patient's name, [facility] accession number and "biopsy, gastric" are four irregular conti soft tissue fragments ranging 0.2-0.4 cm which are submitted in toto in A1. CG/pl MICROSCOPIC DESCRIPTION PERFORMED. [facility] SPECIAL STUDIES The interpretation of this case included the use of immunohistochemistry or special stains. [facility] BLOCK A1- TRACEE RAMEY [facility] Control Slides Examined: In-house known positive controls were evaluated along with the test tissue. These control slides run alongside of the patients sample show appropriate staining. Internal posit donnie and negative controls when available are evaluated Immunohistochemistry technical testing was performed at [facility], Pathology Laboratory where it was developed and its performance characteristics were determined. It has not be en cleared or approved by the U.S. Food and Drug Administration. The FDA has determined that such clearance or approval is not necessary. The test is used for clinical purposes. It should not be regarde d as investigational or for research. This laboratory is certified under the Clinical Laboratory Improvement Amendments of 1988 (CLIA-88) as qualified to perform high complexity clinical laboratory testing. Specimen Tissue Performing Organization Address City/[facility]/Zipcode Phone Number [address] [address] [phone] CENTER Reticulocyte count (06/27/2018 3:15 AM CDT) % Retic 2.8 (H) 0.5 - 1.8 % [facility] Specimen Blood Performing Organization Address [facility] Phone Number [address] [address] [place] Ferritin (06/27/2018 3:15 AM CDT) Ferritin 46 5 - 275 ng/mL [facility] Specimen Blood Narrative Performed At Can do this with the next cbc check [facility] Can do this with the next CBC Performing Organization Address [facility] Phone Number [address] [address] [place] XR chest 1 view portable / bedside (06/27/2018 3:03 AM CDT) Specimen Narrative Performed At FINAL REPORT RIS History: GI bleed. Comparison: None. Findings: A single view of the chest is submitted. The cardiomediastinal contours are unremarkable. The lung volumes are low. There is no focal consolidation, pneumothorax, large pleural effusion or evidence of overt pulmonary edema. There is no acute bony abnormality. Signed: Mo Shah MD Report Verified Date/Time:06/27/2018 03:04:43 Reading Location: [address] Reading Room Procedure Note Interface, External Ris In - 06/27/2018 3:07 AM CDT FINAL REPORT History: GI bleed. Comparison: None. Findings: A single view of the chest is submitted. The cardiomediastinal contours are unremarkable. The lung volumes are low. There is no focal consolidation, pneumothorax, large pleural effusion or evidence of overt pulmonary edema. There is no acute bony abnormality. Signed: Mo Shah MD Report Verified Date/Time: 06/27/2018 03:04:43 Reading Location: [address] Reading Room Performing Organization Address City/[facility] Phone Number [employer] ECG 12 lead (06/27/2018 2:47 AM CDT) Specimen Narrative Performed At Ventricular Rate 71 BPM GE MUSE Atrial Rate 71 BPM P-R Interval 200 ms QRS Duration 80 ms Q-T Interval 386 ms QTC Calculation(Bazett) 419 ms P [place] 44 degrees R [place] -16 degrees T [place] 68 degrees Normal sinus rhythm Septal infarct , age undetermined Abnormal ECG No previous ECGs available Confirmed by Funmilayo STEVE MICHAEL ([id number]) on 06/27/2018 7:43:37 AM Procedure Note Interface, External Ris In - 06/27/2018 7:43 AM CDT Ventricular Rate 71 BPM Atrial Rate 71 BPM P-R Interval 200 ms QRS Duration 80 ms Q-T Interval 386 ms QTC Calculation(Bazett) 419 ms P [place] 44 degrees R [place] -16 degrees T [place] 68 degrees Normal sinus rhythm Septal infarct , age undetermined Abnormal ECG No previous ECGs available Confirmed by Funmilayo STEVE MICHAEL ([id number]) on 06/27/2018 7:43:37 AM Performing Organization Address [facility] Phone Number Healthcare IT MUSE ABORH, manual (06/27/2018 2:33 AM CDT) ABO Grouping O [facility] Rh Factor POS [facility] Specimen Blood Performing Organization Address [facility] Phone Number [facility] [address] [place] [address] [phone] PT/aPTT (06/27/2018 2:18 AM CDT) Protime 15.1 (H) 11.7 - 14.[address] [facility] INR 1.3 <=[address]9 [facility] PTT 31.2 22.5 - 36.[address] [facility] Specimen Blood Narrative Performed At RECOMMENDED COUMADIN/WARFARIN INR THERAPY [facility] RANGES STANDARD DOSE: 2.0 - 3.0 Includes: PROPHYLAXIS for venous thrombosis, systemic embolization; TREATMENT for venous thrombosis and/or pulmonary embolus. HIGH RISK: Target INR is 2.5-3.5 for patients with mechanical heart valves. Performing Organization Address City/[facility] Phone Number [address] [address] [phone] [place] Lactic acid, venous (06/27/2018 2:18 AM CDT) Lactate, Venous 0.9 0.5 - 2.2 mmol/L [facility] Specimen Blood Performing Organization Address City/[facility] Phone Number [address] [address] [place] Comprehensive metabolic panel (06/27/2018 2:18 AM CDT) Protein, Total 5.1 (L) 6.0 - 8.3 gm/dL [facility] Albumin 3.1 (L) 3.5 - 5.0 g/dL [facility] Alkaline Phosphatase 64 40 - 150 U/L [facility] Total Bilirubin 0.2 0.2 - 1.2 mg/dL [facility] Sodium 139 136 - 145 meq/L [facility] Potassium 4.0 3.5 - 5.1 meq/L [facility] Chloride 113 (H) 98 - 107 meq/L [facility] CO2 23 22 - 29 meq/L [facility] BUN 31 (H) 7 - 21 mg/dL [facility] Creatinine 0.75 0.57 - 1.25 mg/dL [facility] Glucose 118 (H) 70 - 105 mg/dL [facility] Calcium 7.8 (L) 8.4 - 10.2 mg/dL [facility] AST 12 5 - 34 U/L [facility] ALT 14 6 - 55 U/L [facility] EGFR Comment: INSUFFICIENT mL/min/1.73 sq m [facility] CLINICAL DATA TO [facility] CALCULATE ESTIMATED GFR. Specimen Blood Performing Organization Address City/State/Zipcode Phone Number [facility] [address] [place] [address] [phone] CENTER after 09/18/2017 Insurance Payer Benefit Plan / Subscriber ID Type Phone Address Group BLUE CROSS/BLUE BCBS PPO POS EPO xxxxxxxxxxxx PPO [phone] [address] [place] [address] Advance Directives For more information, please contact:[address] [phone] Code Status Date Activated Date Inactivated Comments Full Code 06/27/2018 2:40 AM 07/01/2018 1:03 PM This [id number] was [id number]: [id number]
--- OUTSIDE RECORDS SUMMARY | 2018-09-19 18:13 | XMS REPORT ---
:1955 [facility] Address [address] [place] [address] [address] [place] [address] Care Team Providers Name Role Phone LEANNE FRANCO Unavailable Unavailable Problems This patient has no known problems. Allergies, Adverse Reactions, Alerts This patient has no known allergies or adverse reactions. Medications This patient has no known medications. Results Test Description Test Time Test Comments Text Results Atomic Results Result Comments CBC W/PLT COUNT & AUTO DIFFERENTIAL 2018-07-01 08:52:00 Test Item Value Reference Range Comments WHITE BLOOD CELL COUNT (BEAKER) (test tkyd=207) 10.1 K/ L 3.5-10.5 RED BLOOD CELL COUNT (BEAKER) (test qzdc=213) 3.22 M/ L 4.63-6.08 HEMOGLOBIN (BEAKER) (test zzkj=089) 9.8 GM/DL 13.7-17.5 HEMATOCRIT (BEAKER) (test cbuj=941) 29.5 % 40.1-51.0 MEAN CORPUSCULAR VOLUME (BEAKER) (test hssd=073) 91.6 fL 79.0-92.2 MEAN CORPUSCULAR HEMOGLOBIN (BEAKER) (test cbsj=119) 30.4 pg 25.7-32.2 MEAN CORPUSCULAR HEMOGLOBIN CONC (BEAKER) (test cvpj=975) 33.2 GM/DL 32.3- 36.5 RED CELL DISTRIBUTION WIDTH (BEAKER) (test mygt=020) 15.3 % 11.6-14.4 PLATELET COUNT (BEAKER) (test uhjr=155) 241 K/CU MM 150-450 MEAN PLATELET VOLUME (BEAKER) (test etxh=496) 10.3 fL 9.4-12.4 NUCLEATED RED BLOOD CELLS (BEAKER) (test lpmv=593) 1 /100 WBC 0-0 NEUTROPHILS RELATIVE PERCENT (BEAKER) (test ydbx=997) 69 % LYMPHOCYTES RELATIVE PERCENT (BEAKER) (test ybni=458) 20 % MONOCYTES RELATIVE PERCENT (BEAKER) (test bvuq=496) 6 % EOSINOPHILS RELATIVE PERCENT (BEAKER) (test brtk=672) 3 % BASOPHILS RELATIVE PERCENT (BEAKER) (test kfaw=046) 0 % NEUTROPHILS ABSOLUTE COUNT (BEAKER) (test updu=494) 6.99 K/ L 1.78-5.38 LYMPHOCYTES ABSOLUTE COUNT (BEAKER) (test olju=185) 1.98 K/ L 1.32-3.57 MONOCYTES ABSOLUTE COUNT (BEAKER) (test zkyt=211) 0.65 K/ L 0.30-0.82 EOSINOPHILS ABSOLUTE COUNT (BEAKER) (test obby=418) 0.27 K/ L 0.04-0.54 BASOPHILS ABSOLUTE COUNT (BEAKER) (test occt=542) 0.04 K/ L 0.01-0.08 IMMATURE GRANULOCYTES-RELATIVE PERCENT (BEAKER) (test 2 % 0-1 twqb=1440) BASIC METABOLIC [id number] 06:41:00 Test Item Value Reference Range Comments SODIUM (BEAKER) (test 143 meq/L 136-145 tgdw=945) POTASSIUM (BEAKER) (test 3.7 meq/L 3.5-5.1 wfkn=229) CHLORIDE (BEAKER) (test 112 meq/L 98-107 fstc=205) CO2 (BEAKER) (test 26 meq/L 22-29 ysli=808) BLOOD UREA NITROGEN 11 mg/dL 7-21 (BEAKER) (test ldhd=980) CREATININE (BEAKER) (test 0.79 mg/dL 0.57-1.25 rbnh=704) GLUCOSE RANDOM (BEAKER) 91 mg/dL 70-105 (test lopc=194) CALCIUM (BEAKER) (test 8.1 mg/dL 8.4-10.2 nhqr=166) EGFR (BEAKER) (test mL/min/1.73 sq m INSUFFICIENT CLINICAL DATA sitp=4314) TO CALCULATE ESTIMATED GFR. CBC W/PLT COUNT & AUTO [id number] 20:31:00 Test Item Value Reference Range Comments WHITE BLOOD CELL COUNT (BEAKER) (test aaxj=569) 9.2 K/ L 3.5-10.5 RED BLOOD CELL COUNT (BEAKER) (test vjou=263) 3.01 M/ L 4.63-6.08 HEMOGLOBIN (BEAKER) (test hqvz=994) 9.5 GM/DL 13.7-17.5 HEMATOCRIT (BEAKER) (test zrzv=941) 27.3 % 40.1-51.0 MEAN CORPUSCULAR VOLUME (BEAKER) (test wuhn=047) 90.7 fL 79.0-92.2 MEAN CORPUSCULAR HEMOGLOBIN (BEAKER) (test 31.6 pg 25.7-32.2 vcot=408) MEAN CORPUSCULAR HEMOGLOBIN CONC (BEAKER) (test 34.8 GM/DL 32.3-36.5 pjhq=905) RED CELL DISTRIBUTION WIDTH (BEAKER) (test 14.7 % 11.6-14.4 rmyj=816) PLATELET COUNT (BEAKER) (test wsgw=620) 242 K/CU MM 150-450 MEAN PLATELET VOLUME (BEAKER) (test xhfu=221) 10.4 fL 9.4-12.4 NUCLEATED RED BLOOD CELLS (BEAKER) (test 1 /100 WBC 0-0 ceby=693) NEUTROPHILS RELATIVE PERCENT (BEAKER) (test 65 % pckp=905) LYMPHOCYTES RELATIVE PERCENT (BEAKER) (test 20 % eibc=629) MONOCYTES RELATIVE PERCENT (BEAKER) (test 9 % qppw=263) EOSINOPHILS RELATIVE PERCENT (BEAKER) (test 3 % zaff=200) BASOPHILS RELATIVE PERCENT (BEAKER) (test 0 % bskg=244) NEUTROPHILS ABSOLUTE COUNT (BEAKER) (test 6.00 K/ L 1.78-5.38 epbl=143) LYMPHOCYTES ABSOLUTE COUNT (BEAKER) (test 1.84 K/ L 1.32-3.57 fjoe=924) MONOCYTES ABSOLUTE COUNT (BEAKER) (test 0.81 K/ L 0.30-0.82 ofwr=958) EOSINOPHILS ABSOLUTE COUNT (BEAKER) (test 0.27 K/ L 0.04-0.54 epqw=421) BASOPHILS ABSOLUTE COUNT (BEAKER) (test 0.04 K/ L 0.01-0.08 kqpw=646) IMMATURE GRANULOCYTES-RELATIVE PERCENT (BEAKER) 3 % 0-1 (test iyha=1231) CBC W/PLT COUNT & AUTO [id number] 09:40:00 Test Item Value Reference Range Comments WHITE BLOOD CELL COUNT (BEAKER) (test rwdj=642) 8.5 K/ L 3.5-10.5 RED BLOOD CELL COUNT (BEAKER) (test kkee=752) 2.57 M/ L 4.63-6.08 HEMOGLOBIN (BEAKER) (test yaqz=450) 8.0 GM/DL 13.7-17.5 HEMATOCRIT (BEAKER) (test zlad=210) 24.0 % 40.1-51.0 MEAN CORPUSCULAR VOLUME (BEAKER) (test lakg=890) 93.4 fL 79.0-92.2 MEAN CORPUSCULAR HEMOGLOBIN (BEAKER) (test 31.1 pg 25.7-32.2 jfat=687) MEAN CORPUSCULAR HEMOGLOBIN CONC (BEAKER) (test 33.3 GM/DL 32.3-36.5 xmfo=171) RED CELL DISTRIBUTION WIDTH (BEAKER) (test 14.3 % 11.6-14.4 qrci=545) PLATELET COUNT (BEAKER) (test rjms=144) 228 K/CU MM 150-450 MEAN PLATELET VOLUME (BEAKER) (test badn=778) 10.9 fL 9.4-12.4 NUCLEATED RED BLOOD CELLS (BEAKER) (test 1 /100 WBC 0-0 jrmb=534) NEUTROPHILS RELATIVE PERCENT (BEAKER) (test 71 % vlyy=855) LYMPHOCYTES RELATIVE PERCENT (BEAKER) (test 20 % untj=579) MONOCYTES RELATIVE PERCENT (BEAKER) (test 5 % kewl=861) EOSINOPHILS RELATIVE PERCENT (BEAKER) (test 2 % vrzt=194) BASOPHILS RELATIVE PERCENT (BEAKER) (test 0 % xjzf=098) NEUTROPHILS ABSOLUTE COUNT (BEAKER) (test 6.07 K/ L 1.78-5.38 ataz=111) LYMPHOCYTES ABSOLUTE COUNT (BEAKER) (test 1.65 K/ L 1.32-3.57 ljkz=928) MONOCYTES ABSOLUTE COUNT (BEAKER) (test 0.42 K/ L 0.30-0.82 pwcb=710) EOSINOPHILS ABSOLUTE COUNT (BEAKER) (test 0.20 K/ L 0.04-0.54 uxft=822) BASOPHILS ABSOLUTE COUNT (BEAKER) (test 0.03 K/ L 0.01-0.08 jstr=387) IMMATURE GRANULOCYTES-RELATIVE PERCENT (BEAKER) 1 % 0-1 (test mrlw=9869) BASIC METABOLIC [id number] 06:50:00 Test Item Value Reference Range Comments SODIUM (BEAKER) (test 139 meq/L 136-145 rfea=829) POTASSIUM (BEAKER) (test 3.9 meq/L 3.5-5.1 qyew=492) CHLORIDE (BEAKER) (test 109 meq/L 98-107 upsf=924) CO2 (BEAKER) (test 23 meq/L 22-29 qjat=277) BLOOD UREA NITROGEN 14 mg/dL 7-21 (BEAKER) (test lejd=194) CREATININE (BEAKER) (test 0.77 mg/dL 0.57-1.25 baxz=142) GLUCOSE RANDOM (BEAKER) 88 mg/dL 70-105 (test rzes=434) CALCIUM (BEAKER) (test 8.0 mg/dL 8.4-10.2 hnkc=529) EGFR (BEAKER) (test mL/min/1.73 sq m INSUFFICIENT CLINICAL DATA vhha=7364) TO CALCULATE ESTIMATED GFR. CBC W/PLT COUNT & AUTO [id number] 23:23:00 Test Item Value Reference Range Comments WHITE BLOOD CELL COUNT (BEAKER) (test ddvk=642) 8.5 K/ L 3.5-10.5 RED BLOOD CELL COUNT (BEAKER) (test vnfb=558) 2.29 M/ L 4.63-6.08 HEMOGLOBIN (BEAKER) (test dsvr=603) 7.0 GM/DL 13.7-17.5 HEMATOCRIT (BEAKER) (test lbrt=676) 21.0 % 40.1-51.0 MEAN CORPUSCULAR VOLUME (BEAKER) (test wyha=420) 91.7 fL 79.0-92.2 MEAN CORPUSCULAR HEMOGLOBIN (BEAKER) (test 30.6 pg 25.7-32.2 xzuc=183) MEAN CORPUSCULAR HEMOGLOBIN CONC (BEAKER) (test 33.3 GM/DL 32.3-36.5 zhur=935) RED CELL DISTRIBUTION WIDTH (BEAKER) (test 14.0 % 11.6-14.4 nwif=028) PLATELET COUNT (BEAKER) (test nxzx=278) 210 K/CU MM 150-450 MEAN PLATELET VOLUME (BEAKER) (test veup=739) 10.8 fL 9.4-12.4 NUCLEATED RED BLOOD CELLS (BEAKER) (test 0 /100 WBC 0-0 ozdx=303) NEUTROPHILS RELATIVE PERCENT (BEAKER) (test 65 % ozxb=875) LYMPHOCYTES RELATIVE PERCENT (BEAKER) (test 23 % rlrs=103) MONOCYTES RELATIVE PERCENT (BEAKER) (test 8 % etme=338) EOSINOPHILS RELATIVE PERCENT (BEAKER) (test 3 % akvb=880) BASOPHILS RELATIVE PERCENT (BEAKER) (test 0 % ijxj=909) NEUTROPHILS ABSOLUTE COUNT (BEAKER) (test 5.52 K/ L 1.78-5.38 glpq=098) LYMPHOCYTES ABSOLUTE COUNT (BEAKER) (test 1.94 K/ L 1.32-3.57 fwrw=107) MONOCYTES ABSOLUTE COUNT (BEAKER) (test 0.65 K/ L 0.30-0.82 mnte=658) EOSINOPHILS ABSOLUTE COUNT (BEAKER) (test 0.22 K/ L 0.04-0.54 qyri=659) BASOPHILS ABSOLUTE COUNT (BEAKER) (test 0.02 K/ L 0.01-0.08 qptn=733) IMMATURE GRANULOCYTES-RELATIVE PERCENT (BEAKER) 1 % 0-1 (test clxg=5521) CBC W/PLT COUNT & AUTO [id number] 10:14:00 Test Item Value Reference Range Comments WHITE BLOOD CELL COUNT (BEAKER) (test tisg=638) 7.1 K/ L 3.5-10.5 RED BLOOD CELL COUNT (BEAKER) (test ftgp=860) 2.59 M/ L 4.63-6.08 HEMOGLOBIN (BEAKER) (test sunb=835) 7.7 GM/DL 13.7-17.5 HEMATOCRIT (BEAKER) (test rgur=955) 23.7 % 40.1-51.0 MEAN CORPUSCULAR VOLUME (BEAKER) (test fucs=470) 91.5 fL 79.0-92.2 MEAN CORPUSCULAR HEMOGLOBIN (BEAKER) (test 29.7 pg 25.7-32.2 vnno=344) MEAN CORPUSCULAR HEMOGLOBIN CONC (BEAKER) (test 32.5 GM/DL 32.3-36.5 gpru=244) RED CELL DISTRIBUTION WIDTH (BEAKER) (test 13.8 % 11.6-14.4 wfvz=639) PLATELET COUNT (BEAKER) (test lylb=262) 202 K/CU MM 150-450 MEAN PLATELET VOLUME (BEAKER) (test grao=108) 10.5 fL 9.4-12.4 NUCLEATED RED BLOOD CELLS (BEAKER) (test 0 /100 WBC 0-0 ngff=902) NEUTROPHILS RELATIVE PERCENT (BEAKER) (test 69 % frun=110) LYMPHOCYTES RELATIVE PERCENT (BEAKER) (test 21 % bfps=948) MONOCYTES RELATIVE PERCENT (BEAKER) (test 6 % mmgz=646) EOSINOPHILS RELATIVE PERCENT (BEAKER) (test 3 % wigr=782) BASOPHILS RELATIVE PERCENT (BEAKER) (test 0 % wzry=239) NEUTROPHILS ABSOLUTE COUNT (BEAKER) (test 4.88 K/ L 1.78-5.38 gkvd=966) LYMPHOCYTES ABSOLUTE COUNT (BEAKER) (test 1.52 K/ L 1.32-3.57 oxtx=095) MONOCYTES ABSOLUTE COUNT (BEAKER) (test 0.42 K/ L 0.30-0.82 tloz=193) EOSINOPHILS ABSOLUTE COUNT (BEAKER) (test 0.19 K/ L 0.04-0.54 dewa=437) BASOPHILS ABSOLUTE COUNT (BEAKER) (test 0.02 K/ L 0.01-0.08 vkmm=043) IMMATURE GRANULOCYTES-RELATIVE PERCENT (BEAKER) 1 % 0-1 (test xadu=8216) BASIC METABOLIC [id number] 06:07:00 Test Item Value Reference Range Comments SODIUM (BEAKER) (test 138 meq/L 136-145 wtyh=672) POTASSIUM (BEAKER) (test 3.7 meq/L 3.5-5.1 oumn=868) CHLORIDE (BEAKER) (test 108 meq/L 98-107 fmrq=401) CO2 (BEAKER) (test 26 meq/L 22-29 pnxu=167) BLOOD UREA NITROGEN 17 mg/dL 7-21 (BEAKER) (test cpxq=540) CREATININE (BEAKER) (test 0.81 mg/dL 0.57-1.25 odam=219) GLUCOSE RANDOM (BEAKER) 100 mg/dL 70-105 (test pudo=980) CALCIUM (BEAKER) (test 7.9 mg/dL 8.4-10.2 lvfl=618) EGFR (BEAKER) (test mL/min/1.73 sq m INSUFFICIENT CLINICAL DATA cqog=5916) TO CALCULATE ESTIMATED GFR. [id number] 05:59:00 Test Item Value Reference Range Comments MAGNESIUM (BEAKER) (test ckun=715) 1.8 mg/dL 1.6-2.6 IRON, TIBC, % SAT. (WITHOUT FERRITIN)2018-06-29 05:27:00 Test Item Value Reference Range Comments IRON (BEAKER) (test csig=582) 34.0 ug/dL 40.0-160.0 TOTAL IRON BINDING CAPACITY (BEAKER) (test 196 ug/dL 250-450 vywh=858) IRON % SATURATION (2) (BEAKER) (test fdbq=6180) 17 % 20-55 Can do this with the next CBCPROTHROMBIN [id number] 05:10:00 Test Item Value Reference Range Comments PROTIME (BEAKER) (test dawe=317) 13.4 seconds 11.7-14.7 INR (BEAKER) (test zlsw=587) 1.1 <=5.9 RECOMMENDED COUMADIN/WARFARIN INR THERAPY RANGESSTANDARD DOSE: 2.0 - 3.0 Includes: PROPHYLAXIS forvenous thrombosis, systemic embolization; TREATMENT for venous thrombosis and/or pulmonary embolus.HIGH RISK: Target INR is 2.5-3.5 for patients with mechanical heart valves.CBC W/PLT COUNT & AUTO [id number] 00:26:00 Test Item Value Reference Range Comments WHITE BLOOD CELL COUNT (BEAKER) (test xkqu=688) 7.8 K/ L 3.5-10.5 RED BLOOD CELL COUNT (BEAKER) (test yzuw=766) 2.36 M/ L 4.63-6.08 HEMOGLOBIN (BEAKER) (test hrmh=093) 7.2 GM/DL 13.7-17.5 HEMATOCRIT (BEAKER) (test yqjm=144) 21.4 % 40.1-51.0 MEAN CORPUSCULAR VOLUME (BEAKER) (test vfya=755) 90.7 fL 79.0-92.2 MEAN CORPUSCULAR HEMOGLOBIN (BEAKER) (test 30.5 pg 25.7-32.2 vgls=127) MEAN CORPUSCULAR HEMOGLOBIN CONC (BEAKER) (test 33.6 GM/DL 32.3-36.5 rhqa=365) RED CELL DISTRIBUTION WIDTH (BEAKER) (test 13.5 % 11.6-14.4 mzqv=507) PLATELET COUNT (BEAKER) (test znhh=089) 185 K/CU MM 150-450 MEAN PLATELET VOLUME (BEAKER) (test zkpp=185) 10.6 fL 9.4-12.4 NUCLEATED RED BLOOD CELLS (BEAKER) (test 0 /100 WBC 0-0 alac=605) NEUTROPHILS RELATIVE PERCENT (BEAKER) (test 60 % rokp=111) LYMPHOCYTES RELATIVE PERCENT (BEAKER) (test 29 % xodg=863) MONOCYTES RELATIVE PERCENT (BEAKER) (test 8 % xfoq=842) EOSINOPHILS RELATIVE PERCENT (BEAKER) (test 3 % rmqa=731) BASOPHILS RELATIVE PERCENT (BEAKER) (test 0 % boey=093) NEUTROPHILS ABSOLUTE COUNT (BEAKER) (test 4.63 K/ L 1.78-5.38 hrxr=222) LYMPHOCYTES ABSOLUTE COUNT (BEAKER) (test 2.23 K/ L 1.32-3.57 axnv=652) MONOCYTES ABSOLUTE COUNT (BEAKER) (test 0.61 K/ L 0.30-0.82 ijki=411) EOSINOPHILS ABSOLUTE COUNT (BEAKER) (test 0.23 K/ L 0.04-0.54 gavp=703) BASOPHILS ABSOLUTE COUNT (BEAKER) (test 0.02 K/ L 0.01-0.08 gkru=800) IMMATURE GRANULOCYTES-RELATIVE PERCENT (BEAKER) 1 % 0-1 (test muai=3731) TROPONIN [id number] 17:24:00 Test Item Value Reference Range Comments TROPONIN I (BEAKER) (test ytjn=199) 0.02 ng/mL 0.00-0.03 Troponin I (TnI) levels must be interpreted in the context of the presenting symptoms and the clinical findings. Elevated TnI levels indicate myocardial damage, but are not specific for ischemic heart disease. Elevated TnI levels are seen in patients with other cardiac conditions (including myocarditis and congestive heart failure), and slight TnI elevations occur in patients with other conditions, including sepsis, renal failure, acidosis, acute neurological disease, and persistent tachyarrhythmia.CBC W/PLT COUNT & AUTO [id number] 17:00:00 Test Item Value Reference Range Comments WHITE BLOOD CELL COUNT (BEAKER) (test rorl=453) 6.6 K/ L 3.5-10.5 RED BLOOD CELL COUNT (BEAKER) (test vhic=898) 2.38 M/ L 4.63-6.08 HEMOGLOBIN (BEAKER) (test dcig=194) 7.4 GM/DL 13.7-17.5 HEMATOCRIT (BEAKER) (test hfsd=061) 21.9 % 40.1-51.0 MEAN CORPUSCULAR VOLUME (BEAKER) (test uyns=132) 92.0 fL 79.0-92.2 MEAN CORPUSCULAR HEMOGLOBIN (BEAKER) (test 31.1 pg 25.7-32.2 icwp=938) MEAN CORPUSCULAR HEMOGLOBIN CONC (BEAKER) (test 33.8 GM/DL 32.3-36.5 ipxx=751) RED CELL DISTRIBUTION WIDTH (BEAKER) (test 13.4 % 11.6-14.4 akxl=626) PLATELET COUNT (BEAKER) (test zklt=597) 167 K/CU MM 150-450 MEAN PLATELET VOLUME (BEAKER) (test zwsw=889) 10.1 fL 9.4-12.4 NUCLEATED RED BLOOD CELLS (BEAKER) (test 0 /100 WBC 0-0 gttd=705) NEUTROPHILS RELATIVE PERCENT (BEAKER) (test 62 % qptn=021) LYMPHOCYTES RELATIVE PERCENT (BEAKER) (test 27 % whmn=933) MONOCYTES RELATIVE PERCENT (BEAKER) (test 7 % szir=160) EOSINOPHILS RELATIVE PERCENT (BEAKER) (test 3 % gzst=694) BASOPHILS RELATIVE PERCENT (BEAKER) (test 0 % amnu=985) NEUTROPHILS ABSOLUTE COUNT (BEAKER) (test 4.06 K/ L 1.78-5.38 uciv=750) LYMPHOCYTES ABSOLUTE COUNT (BEAKER) (test 1.78 K/ L 1.32-3.57 tgfg=134) MONOCYTES ABSOLUTE COUNT (BEAKER) (test 0.48 K/ L 0.30-0.82 rwzo=621) EOSINOPHILS ABSOLUTE COUNT (BEAKER) (test 0.20 K/ L 0.04-0.54 yuhh=292) BASOPHILS ABSOLUTE COUNT (BEAKER) (test 0.02 K/ L 0.01-0.08 radq=306) IMMATURE GRANULOCYTES-RELATIVE PERCENT (BEAKER) 1 % 0-1 (test cfxi=0942) CBC W/PLT COUNT & AUTO [id number] 10:51:00 Test Item Value Reference Range Comments WHITE BLOOD CELL COUNT (BEAKER) (test zmch=985) 6.9 K/ L 3.5-10.5 RED BLOOD CELL COUNT (BEAKER) (test soyh=988) 2.52 M/ L 4.63-6.08 HEMOGLOBIN (BEAKER) (test cxza=343) 7.8 GM/DL 13.7-17.5 HEMATOCRIT (BEAKER) (test idzo=454) 23.0 % 40.1-51.0 MEAN CORPUSCULAR VOLUME (BEAKER) (test kcnd=922) 91.3 fL 79.0-92.2 MEAN CORPUSCULAR HEMOGLOBIN (BEAKER) (test 31.0 pg 25.7-32.2 mnws=687) MEAN CORPUSCULAR HEMOGLOBIN CONC (BEAKER) (test 33.9 GM/DL 32.3-36.5 hhrx=715) RED CELL DISTRIBUTION WIDTH (BEAKER) (test 13.4 % 11.6-14.4 txat=925) PLATELET COUNT (BEAKER) (test dxdx=917) 172 K/CU MM 150-450 MEAN PLATELET VOLUME (BEAKER) (test tmok=347) 10.7 fL 9.4-12.4 NUCLEATED RED BLOOD CELLS (BEAKER) (test 0 /100 WBC 0-0 wkww=205) NEUTROPHILS RELATIVE PERCENT (BEAKER) (test 69 % vgns=679) LYMPHOCYTES RELATIVE PERCENT (BEAKER) (test 22 % hjst=768) MONOCYTES RELATIVE PERCENT (BEAKER) (test 6 % ojtx=199) EOSINOPHILS RELATIVE PERCENT (BEAKER) (test 2 % mnxw=592) BASOPHILS RELATIVE PERCENT (BEAKER) (test 0 % nsqd=053) NEUTROPHILS ABSOLUTE COUNT (BEAKER) (test 4.77 K/ L 1.78-5.38 ynpe=509) LYMPHOCYTES ABSOLUTE COUNT (BEAKER) (test 1.52 K/ L 1.32-3.57 vckn=931) MONOCYTES ABSOLUTE COUNT (BEAKER) (test 0.41 K/ L 0.30-0.82 ognh=866) EOSINOPHILS ABSOLUTE COUNT (BEAKER) (test 0.15 K/ L 0.04-0.54 zbzz=105) BASOPHILS ABSOLUTE COUNT (BEAKER) (test 0.02 K/ L 0.01-0.08 ybdu=684) IMMATURE GRANULOCYTES-RELATIVE PERCENT (BEAKER) 1 % 0-1 (test dkwq=2011) TISSUE [id number] 08:07:00Surgical Pathology Report Case: [id number] Authorizing Provider: Marilee Lane MD Collected: 06/27/2018 1124 Ordering Location[place] [address] ICU Received: 06/27/2018 5808 Pathologist: Binu Magallon MD Specimen: Biopsy, Gastric, random gastric body and antrum PART A RANDOM GASTRIC BIOPSY:ANTRAL MUCOSA WITH FOCALLY ACTIVE CHRONIC GASTRITIS.OXYNTIC MUCOSA WITH MILD CHRONIC INACTIVE GASTRITIS.NEGATIVE FOR INTESTINAL METAPLASIA, DYSPLASIA, OR INVASIVE CARCINOMA.HELICOBACTER ORGANISMS ARE IDENTIFIED ON WARTHIN STARRY SPECIAL STAIN. Signing Pathologist Direct Phone Line: [phone] signed by Binu Magallon MD on 06/28/2018 at 8:07 [id number], [id number] and postop diagnosis: melenaBiopsy, gastric, random gastric body and antrumReceived in formalin labeled with the patient's name, accession number and "biopsy, gastric" are four irregular conti soft tissue fragments ranging 0.2- 0.4 cm which are submitted in toto in A1. CG/pl PERFORMED. The interpretation of this case included the use of immunohistochemistry or special stains.BLOCK A1 - WARTHIN STARRYControl Slides Examined: In-house known positive controls were evaluated along with the test tissue. These control slides run alongside of the patients sample show appropriate staining. Internal positive and negative controls when available are evaluated Immunohistochemistry technical testing was performed at [facility] Pathology Laboratory where it was developed and its performance characteristics were determined. It has not been cleared or approved by the U.S. Food and Drug Administration. The FDA has determined that such clearance or approval is not necessary. The test is used for clinical purposes. It should not be regarded as investigational or for research. This laboratory is certified under the Clinical Laboratory Improvement Amendments of 1988 (CLIA-88) as qualified to perform high complexity clinical laboratory testing.IRON, TIBC, % SAT. (WITHOUT FERRITIN)2018 04:45:00 Test Item Value Reference Range Comments IRON (BEAKER) (test lupf=234) 57.0 ug/dL 40.0-160.0 TOTAL IRON BINDING CAPACITY (BEAKER) (test 191 ug/dL 250-450 mcbl=868) IRON % SATURATION (2) (BEAKER) (test ztqz=7142) 30 % 20-55 Can do this with the next CBCPROTHROMBIN [id number] 04:34:00 Test Item Value Reference Range Comments PROTIME (BEAKER) (test pphu=592) 14.2 seconds 11.7-14.7 INR (BEAKER) (test jgev=040) 1.2 <=5.9 RECOMMENDED COUMADIN/WARFARIN INR THERAPY RANGESSTANDARD DOSE: 2.0 - 3.0 Includes: PROPHYLAXIS forvenous thrombosis, systemic embolization; TREATMENT for venous thrombosis and/or pulmonary embolus.HIGH RISK: Target INR is 2.5-3.5 for patients with mechanical heart valves.BASIC METABOLIC [id number] 04:29: 00 Test Item Value Reference Range Comments SODIUM (BEAKER) (test 140 meq/L 136-145 njop=919) POTASSIUM (BEAKER) (test 4.1 meq/L 3.5-5.1 tcqy=965) CHLORIDE (BEAKER) (test 111 meq/L 98-107 qqrc=711) CO2 (BEAKER) (test 25 meq/L 22-29 mjts=955) BLOOD UREA NITROGEN 15 mg/dL 7-21 (BEAKER) (test cnkn=019) CREATININE (BEAKER) (test 0.83 mg/dL 0.57-1.25 dkqc=790) GLUCOSE RANDOM (BEAKER) 92 mg/dL 70-105 (test aixr=215) CALCIUM (BEAKER) (test 8.1 mg/dL 8.4-10.2 ofpy=245) EGFR (BEAKER) (test mL/min/1.73 sq m INSUFFICIENT CLINICAL DATA pnhm=5972) TO CALCULATE ESTIMATED GFR. CBC W/PLT COUNT & AUTO [id number] 23:50:00 Test Item Value Reference Range Comments WHITE BLOOD CELL COUNT (BEAKER) (test synj=989) 8.0 K/ L 3.5-10.5 RED BLOOD CELL COUNT (BEAKER) (test fuit=304) 2.41 M/ L 4.63-6.08 HEMOGLOBIN (BEAKER) (test sleq=904) 7.4 GM/DL 13.7-17.5 HEMATOCRIT (BEAKER) (test biza=450) 21.6 % 40.1-51.0 MEAN CORPUSCULAR VOLUME (BEAKER) (test ervc=137) 89.6 fL 79.0-92.2 MEAN CORPUSCULAR HEMOGLOBIN (BEAKER) (test 30.7 pg 25.7-32.2 udff=980) MEAN CORPUSCULAR HEMOGLOBIN CONC (BEAKER) (test 34.3 GM/DL 32.3-36.5 meqj=624) RED CELL DISTRIBUTION WIDTH (BEAKER) (test 13.6 % 11.6-14.4 ssnr=320) PLATELET COUNT (BEAKER) (test bfjk=253) 161 K/CU MM 150-450 MEAN PLATELET VOLUME (BEAKER) (test gbfa=260) 10.5 fL 9.4-12.4 NUCLEATED RED BLOOD CELLS (BEAKER) (test 0 /100 WBC 0-0 efgi=144) NEUTROPHILS RELATIVE PERCENT (BEAKER) (test 59 % ykpu=731) LYMPHOCYTES RELATIVE PERCENT (BEAKER) (test 30 % zxge=321) MONOCYTES RELATIVE PERCENT (BEAKER) (test 8 % dpug=303) EOSINOPHILS RELATIVE PERCENT (BEAKER) (test 3 % lieo=707) BASOPHILS RELATIVE PERCENT (BEAKER) (test 0 % lwjk=507) NEUTROPHILS ABSOLUTE COUNT (BEAKER) (test 4.69 K/ L 1.78-5.38 otco=411) LYMPHOCYTES ABSOLUTE COUNT (BEAKER) (test 2.37 K/ L 1.32-3.57 gbjm=328) MONOCYTES ABSOLUTE COUNT (BEAKER) (test 0.62 K/ L 0.30-0.82 knlc=868) EOSINOPHILS ABSOLUTE COUNT (BEAKER) (test 0.20 K/ L 0.04-0.54 gvsi=340) BASOPHILS ABSOLUTE COUNT (BEAKER) (test 0.03 K/ L 0.01-0.08 xbuw=959) IMMATURE GRANULOCYTES-RELATIVE PERCENT (BEAKER) 1 % 0-1 (test oquh=6502) TROPONIN [id number] 14:18:00 Test Item Value Reference Range Comments TROPONIN I (BEAKER) (test iddk=714) 0.01 ng/mL 0.00-0.03 Troponin I (TnI) levels must be interpreted in the context of the presenting symptoms and the clinical findings. Elevated TnI levels indicate myocardial damage, but are not specific for ischemic heart disease. Elevated TnI levels are seen in patients with other cardiac conditions (including myocarditis and congestive heart failure), and slight TnI elevations occur in patients with other conditions, including sepsis, renal failure, acidosis, acute neurological disease, and persistent tachyarrhythmia.CBC W/PLT COUNT & AUTO [id number] 13:21:00 Test Item Value Reference Range Comments WHITE BLOOD CELL COUNT (BEAKER) (test hska=792) 9.5 K/ L 3.5-10.5 RED BLOOD CELL COUNT (BEAKER) (test habi=046) 2.57 M/ L 4.63-6.08 HEMOGLOBIN (BEAKER) (test cmjy=578) 7.9 GM/DL 13.7-17.5 HEMATOCRIT (BEAKER) (test degx=036) 23.5 % 40.1-51.0 MEAN CORPUSCULAR VOLUME (BEAKER) (test seov=311) 91.4 fL 79.0-92.2 MEAN CORPUSCULAR HEMOGLOBIN (BEAKER) (test 30.7 pg 25.7-32.2 mbww=047) MEAN CORPUSCULAR HEMOGLOBIN CONC (BEAKER) (test 33.6 GM/DL 32.3-36.5 vyxc=749) RED CELL DISTRIBUTION WIDTH (BEAKER) (test 13.6 % 11.6-14.4 pcbz=468) PLATELET COUNT (BEAKER) (test igdt=063) 165 K/CU MM 150-450 MEAN PLATELET VOLUME (BEAKER) (test zazg=802) 10.7 fL 9.4-12.4 NUCLEATED RED BLOOD CELLS (BEAKER) (test 0 /100 WBC 0-0 noqb=197) NEUTROPHILS RELATIVE PERCENT (BEAKER) (test 66 % vezw=594) LYMPHOCYTES RELATIVE PERCENT (BEAKER) (test 23 % tnhn=096) MONOCYTES RELATIVE PERCENT (BEAKER) (test 8 % wiqe=799) EOSINOPHILS RELATIVE PERCENT (BEAKER) (test 2 % nids=890) BASOPHILS RELATIVE PERCENT (BEAKER) (test 0 % wiwh=181) NEUTROPHILS ABSOLUTE COUNT (BEAKER) (test 6.29 K/ L 1.78-5.38 npwx=038) LYMPHOCYTES ABSOLUTE COUNT (BEAKER) (test 2.23 K/ L 1.32-3.57 kvca=676) MONOCYTES ABSOLUTE COUNT (BEAKER) (test 0.75 K/ L 0.30-0.82 zsge=589) EOSINOPHILS ABSOLUTE COUNT (BEAKER) (test 0.17 K/ L 0.04-0.54 bgwj=704) BASOPHILS ABSOLUTE COUNT (BEAKER) (test 0.03 K/ L 0.01-0.08 nhxq=487) IMMATURE GRANULOCYTES-RELATIVE PERCENT (BEAKER) 1 % 0-1 (test pabs=8556) IRON, TIBC, % SAT. (WITHOUT FERRITIN)2018-06-27 08:58:00 Test Item Value Reference Range Comments IRON (BEAKER) (test rnlw=064) 73.0 ug/dL 40.0-160.0 TOTAL IRON BINDING CAPACITY (BEAKER) (test 189 ug/dL 250-450 dmxj=410) IRON % SATURATION (2) (BEAKER) (test owvy=0399) 39 % 20-55 Can do this with the next cbc checkCan do this with the next [id number] 07:30:00 Test Item Value Reference Range Comments FERRITIN (BEAKER) (test vztl=899) 46 ng/mL 5-275 Can do this with the next cbc checkCan do this with the next CBCTROPONIN [id number] 03:49:00 Test Item Value Reference Range Comments TROPONIN I (BEAKER) (test gkyj=772) < ng/mL 0.00-0.03 Troponin I (TnI) levels must be interpreted in the context of the presenting symptoms and the clinical findings. Elevated TnI levels indicate myocardial damage, but are not specific for ischemic heart disease. Elevated TnI levels are seen in patients with other cardiac conditions (including myocarditis and congestive heart failure), and slight TnI elevations occur in patients with other conditions, including sepsis, renal failure, acidosis, acute neurological disease, and persistent tachyarrhythmia.RETICULOCYTE [id number] 03:26:00 Test Item Value Reference Range Comments RETICULOCYTE COUNT PCT (BEAKER) (test rcvh=677) 2.8 % 0.5-1.8 RAD, CHEST, 1 VIEW, NON [id number] 03:04:00Reason for exam:->gibShould this be performed at the bedside?->YesFINAL REPORT History: GI bleed. Comparison: None. Findings: A single view ofthe chest is submitted. The cardiomediastinal contours are unremarkable. The lung volumes are low. There is no focal consolidation, pneumothorax, large pleural effusion or evidence of overt pulmonary edema. There is no acute bony abnormality. Signed: Alejandrina Shah MDReport Verified Date/Time: 06/27/2018 03:04:43 Reading Location: [address] Reading Room COMPREHENSIVE METABOLIC [id number] 02:57:00 Test Item Value Reference Range Comments TOTAL PROTEIN (BEAKER) 5.1 gm/dL 6.0-8.3 (test dwlj=448) ALBUMIN (BEAKER) (test 3.1 g/dL 3.5-5.0 rdbc=2722) ALKALINE PHOSPHATASE 64 U/L 40-150 (BEAKER) (test powl=670) BILIRUBIN TOTAL (BEAKER) 0.2 mg/dL 0.2-1.2 (test qiph=518) SODIUM (BEAKER) (test 139 meq/L 136-145 csoc=408) POTASSIUM (BEAKER) (test 4.0 meq/L 3.5-5.1 vqun=763) CHLORIDE (BEAKER) (test 113 meq/L 98-107 pavb=935) CO2 (BEAKER) (test 23 meq/L 22-29 xnxk=522) BLOOD UREA NITROGEN 31 mg/dL 7-21 (BEAKER) (test kkyv=427) CREATININE (BEAKER) (test 0.75 mg/dL 0.57-1.25 savm=205) GLUCOSE RANDOM (BEAKER) 118 mg/dL 70-105 (test gdoj=292) CALCIUM (BEAKER) (test 7.8 mg/dL 8.4-10.2 zjcb=908) AST (SGOT) (BEAKER) (test 12 U/L 5-34 invj=796) ALT (SGPT) (BEAKER) (test 14 U/L 6-55 ywjr=200) EGFR (BEAKER) (test mL/min/1.73 sq m INSUFFICIENT CLINICAL DATA tmfn=0297) TO CALCULATE ESTIMATED GFR. [id number] 02:43:00 Test Item Value Reference Range Comments PROTIME (BEAKER) (test syzd=238) 15.1 seconds 11.7-14.7 INR (BEAKER) (test nsce=843) 1.3 <=5.9 PARTIAL THROMBOPLASTIN TIME (BEAKER) (test 31.2 seconds 22.5-36.0 dtjm=998) RECOMMENDED COUMADIN/WARFARIN INR THERAPY RANGESSTANDARD DOSE: 2.0 - 3.0 Includes: PROPHYLAXIS forvenous thrombosis, systemic embolization; TREATMENT for venous thrombosis and/or pulmonary embolus.HIGH RISK: Target INR is 2.5-3.5 for patients with mechanical heart valves.PROTHROMBIN TIME/[id number] 02:42: 00 Test Item Value Reference Range Comments PROTIME (BEAKER) (test pkqk=819) 15.1 seconds 11.7-14.7 INR (BEAKER) (test brnm=512) 1.3 <=5.9 RECOMMENDED COUMADIN/WARFARIN INR THERAPY RANGESSTANDARD DOSE: 2.0 - 3.0 Includes: PROPHYLAXIS forvenous thrombosis, systemic embolization; TREATMENT for venous thrombosis and/or pulmonary embolus.HIGH RISK: Target INR is 2.5-3.5 for patients with mechanical heart valves.LACTIC ACID, [id number] 02:39:00 Test Item Value Reference Range Comments LACTATE BLOOD VENOUS (2) (BEAKER) (test 0.9 mmol/L 0.5-2.2 xsbj=4725) CBC W/PLT COUNT & AUTO [id number] 02:25:00 Test Item Value Reference Range Comments WHITE BLOOD CELL COUNT (BEAKER) (test yfyv=970) 9.7 K/ L 3.5-10.5 RED BLOOD CELL COUNT (BEAKER) (test udcm=460) 2.53 M/ L 4.63-6.08 HEMOGLOBIN (BEAKER) (test vwow=702) 7.7 GM/DL 13.7-17.5 HEMATOCRIT (BEAKER) (test kakq=369) 22.8 % 40.1-51.0 MEAN CORPUSCULAR VOLUME (BEAKER) (test fayx=922) 90.1 fL 79.0-92.2 MEAN CORPUSCULAR HEMOGLOBIN (BEAKER) (test 30.4 pg 25.7-32.2 htir=366) MEAN CORPUSCULAR HEMOGLOBIN CONC (BEAKER) (test 33.8 GM/DL 32.3-36.5 ypyo=529) RED CELL DISTRIBUTION WIDTH (BEAKER) (test 13.2 % 11.6-14.4 wfhq=389) PLATELET COUNT (BEAKER) (test jkdj=631) 170 K/CU MM 150-450 MEAN PLATELET VOLUME (BEAKER) (test wddk=927) 10.7 fL 9.4-12.4 NUCLEATED RED BLOOD CELLS (BEAKER) (test 0 /100 WBC 0-0 ownq=070) NEUTROPHILS RELATIVE PERCENT (BEAKER) (test 63 % vxrd=614) LYMPHOCYTES RELATIVE PERCENT (BEAKER) (test 28 % uesq=728) MONOCYTES RELATIVE PERCENT (BEAKER) (test 7 % nejo=494) EOSINOPHILS RELATIVE PERCENT (BEAKER) (test 2 % nqrx=523) BASOPHILS RELATIVE PERCENT (BEAKER) (test 0 % pmav=410) NEUTROPHILS ABSOLUTE COUNT (BEAKER) (test 6.07 K/ L 1.78-5.38 ifrp=519) LYMPHOCYTES ABSOLUTE COUNT (BEAKER) (test 2.75 K/ L 1.32-3.57 hqfo=156) MONOCYTES ABSOLUTE COUNT (BEAKER) (test 0.64 K/ L 0.30-0.82 nzbq=248) EOSINOPHILS ABSOLUTE COUNT (BEAKER) (test 0.18 K/ L 0.04-0.54 eavc=955) BASOPHILS ABSOLUTE COUNT (BEAKER) (test 0.02 K/ L 0.01-0.08 ahyi=962) IMMATURE GRANULOCYTES-RELATIVE PERCENT (BEAKER) 0 % 0-1 (test gtax=4753)
--- NOTE | 2018-09-19 19:48 | ER ---
Nurse's Notes [facility] Name: Mp Moreno Age: 63 yrs Sex: Male : 1955 Arrival Date: 09/19/2018 Time: 18:11 Bed 23 Private MD: Diagnosis: Pain in left foot;Cellulitis of left lower limb Presentation: 09/19 18:23 Presenting complaint: Patient states: I have been having pain in my left foot for the la1 last few days, no known injury reported. Transition of care: patient was not received from another setting of care. Onset of symptoms was September 19, 2018. Risk Assessment: Do you want to hurt yourself or someone else? Patient reports no desire to harm self or others. Initial Sepsis Screen: Does the patient meet any 2 criteria? No. Patient's initial sepsis screen is negative. Does the patient have a suspected source of infection? No. Patient's initial sepsis screen is negative. Care prior to arrival: None. 18:23 Method Of Arrival: Ambulatory la1 18:23 Acuity: ANTONETTE 4 la1 Historical: - Allergies: 18:24 NKDA; la1 - PMHx: 18:24 High Cholesterol; Hyperlipidemia; Hypertension; Kidney stones; Myocardial infarction; la1 - Immunization history:: Adult Immunizations up to date. - Social history:: Smoking status: Patient/guardian denies using tobacco. - Ebola Screening: : No symptoms or risks identified at this time. Screenin:10 Abuse screen: Denies threats or abuse. Denies injuries from another. Nutritional mg2 screening: No deficits noted. Tuberculosis screening: No symptoms or risk factors identified. Fall Risk No IV (0 pts). Assessment: 20:04 General: Appears in no apparent distress. comfortable, Behavior is calm, cooperative. mg2 Pain: Complains of pain in left foot Pain does not radiate. Pain currently is 4 out of 10 on a pain scale. Quality of pain is described as aching, Pain began gradually, Is intermittent. Neuro: Level of Consciousness is awake, alert, obeys commands, Oriented to person, place, time, situation. Cardiovascular: Capillary refill < 3 seconds Patient's skin is warm and dry. Respiratory: Airway is patent Respiratory effort is even, unlabored, Respiratory pattern is regular, symmetrical. GI: No deficits noted. : No deficits noted. EENT: No deficits noted. Derm: Skin is intact, is healthy with good turgor, Skin is pink, warm \T\ dry. normal. Musculoskeletal: Circulation, motion, and sensation intact. Capillary refill < 3 seconds, Swelling present in dorsum of left foot. Vital Signs: 18:22 BP 127 / 81; Pulse 81; Resp 16; Temp 98.4; Pulse Ox 98% on R/A; Weight 71.67 kg; Height la1 5 ft. 9 in. (175.26 cm); 20:11 BP 122 / 78; Pulse 80; Resp 18; Temp 98; Pulse Ox 100% on R/A; mg2 18:22 Body Mass Index 23.33 (71.67 kg, 175.26 cm) la1 ED Course: 18:11 Patient arrived in ED. as 18:23 Arm band placed on left wrist. la1 18:24 Triage completed. la1 18:31 [facility]ilar FNP-C [facility] kb 18:31 Isidro Irizarry MD is Attending Physician. kb 19:03 Sarah Aguilar FNP-C is [facility] kb 19:03 Isidro Irizarry MD is Attending Physician. kb 19:22 Foot Left 3 View XRAY In Process Unspecified. EDMS 19:38 Jluis Nogueira, SONALI is Primary Nurse. mg2 20:11 Patient has correct armband on for positive identification. Pulse ox on. NIBP on. Door mg2 closed. 20:11 No provider procedures requiring assistance completed. Patient did not have IV access mg2 during this emergency room visit. Administered Medications: No medications were administered Outcome: 19:47 Discharge ordered by MD. kb 20:11 Discharged to home via wheelchair, with family. mg2 20:11 Condition: stable 20:11 Discharge instructions given to patient, family, Instructed on discharge instructions, follow up and referral plans. medication usage, Demonstrated understanding of instructions, follow-up care, medications, Prescriptions given X 2. 20:12 Patient left the ED. mg2 Signatures: Dispatcher [employer] EDMS Sarah Aguilar FNP-C FNP-Ckb Martinez, Amelia as Attema, Lee, RN RN la1 Jluis Nogueira, SONALI RN mg2
--- NOTE | 2018-09-19 19:48 | EDPHYS ---
Physician Documentation [facility] Name: Mp Moreno Age: 63 yrs Sex: Male : 1955 Arrival Date: 09/19/2018 Time: 18:11 Bed 23 Private MD: ED Physician Isidro Irizarry HPI: 09/19 19:45 This 63 yrs old Male presents to ER via Ambulatory with complaints of Foot kb Pain. 19:45 The patient presents with pain, swelling, tenderness. The complaints affect the left kb foot. Context: The problem was sustained at an unknown location, resulted from an unknown cause, the patient can fully bear weight, the patient is able to ambulate. Onset: The symptoms/episode began/occurred 3 day(s) ago. Modifying factors: The symptoms are alleviated by nothing, the symptoms are aggravated by weight bearing. Associated signs and symptoms: Pertinent positives: swelling. Severity of symptoms: At their worst the symptoms were moderate, in the emergency department the symptoms have improved, moderately. The patient has not experienced similar symptoms in the past. The patient has not recently seen a physician. Pt reports swelling, redness and pain to top of left foot that started a few days ago. Reports symptoms are improving but he needs a note because he can't work with the pain. Historical: - Allergies: 18:24 NKDA; la1 - PMHx: 18:24 High Cholesterol; Hyperlipidemia; Hypertension; Kidney stones; Myocardial infarction; la1 - Immunization history:: Adult Immunizations up to date. - Social history:: Smoking status: Patient/guardian denies using tobacco. - Ebola Screening: : No symptoms or risks identified at this time. ROS: 19:40 Constitutional: Negative for fever, chills, and weight loss, ENT: Negative for injury, kb pain, and discharge, Neck: Negative for injury, pain, and swelling, Cardiovascular: Negative for chest pain, palpitations, and edema, Respiratory: Negative for shortness of breath, cough, wheezing, and pleuritic chest pain, Abdomen/GI: Negative for abdominal pain, nausea, vomiting, diarrhea, and constipation, Back: Negative for injury and pain, : Negative for injury, bleeding, discharge, and swelling, Neuro: Negative for headache, weakness, numbness, tingling, and seizure. 19:40 MS/extremity: Positive for erythema, pain, swelling, tenderness, of the dorsum of left foot. Exam: 19:40 Constitutional: This is a well developed, well nourished patient who is awake, alert, kb and in no acute distress. Head/Face: Normocephalic, atraumatic. ENT: Nares patent. No nasal discharge, no septal abnormalities noted. Tympanic membranes are normal and external auditory canals are clear. Oropharynx with no redness, swelling, or masses, exudates, or evidence of obstruction, uvula midline. Mucous membranes moist. Neck: Trachea midline, no thyromegaly or masses palpated, and no cervical lymphadenopathy. Supple, full range of motion without nuchal rigidity, or vertebral point tenderness. No Meningismus. Chest/axilla: Normal chest wall appearance and motion. Nontender with no deformity. No lesions are appreciated. Cardiovascular: Regular rate and rhythm with a normal S1 and S2. No gallops, murmurs, or rubs. Normal PMI, no JVD. No pulse deficits. Respiratory: Lungs have equal breath sounds bilaterally, clear to auscultation and percussion. No rales, rhonchi or wheezes noted. No increased work of breathing, no retractions or nasal flaring. Abdomen/GI: Soft, non-tender, with normal bowel sounds. No distension or tympany. No guarding or rebound. No evidence of tenderness throughout. Neuro: Awake and alert, GCS 15, oriented to person, place, time, and situation. Cranial nerves II-XII grossly intact. Motor strength 5/5 in all extremities. Sensory grossly intact. Cerebellar exam normal. Normal gait. 19:40 Musculoskeletal/extremity: Extremities: grossly normal except: noted in the dorsum of left foot: erythema, pain, swelling, tenderness, ROM: intact in all extremities, Circulation is intact in all extremities. Sensation intact. Weight bearing: able to fully bear weight. 19:40 Skin: cellulitis, that is minimal, on the dorsum of left foot. Vital Signs: 18:22 BP 127 / 81; Pulse 81; Resp 16; Temp 98.4; Pulse Ox 98% on R/A; Weight 71.67 kg; Height la1 5 ft. 9 in. (175.26 cm); 20:11 BP 122 / 78; Pulse 80; Resp 18; Temp 98; Pulse Ox 100% on R/A; mg2 18:22 Body Mass Index 23.33 (71.67 kg, 175.26 cm) la1 MDM: 19:04 Patient medically screened. [facility] 19:44 Data reviewed: vital signs, nurses notes. Data interpreted: Pulse oximetry: on room air kb is 98 %. Interpretation: normal. Counseling: I had a detailed discussion with the patient and/or guardian regarding: the historical points, exam findings, and any diagnostic results supporting the discharge/admit diagnosis, radiology results, the need for outpatient follow up, a family practitioner, to return to the emergency department if symptoms worsen or persist or if there are any questions or concerns that arise at home. 09/19 18:22 Order name: Foot Left 3 View XRAY; Complete Time: 20:04 la1 Administered Medications: No medications were administered Disposition: 09/20 08:25 Co-signature as Attending Physician, Isidro Irizarry MD I agree with the assessment and [facility] plan of care. Disposition: 09/19/18 19:47 Discharged to Home. Impression: Pain in left foot, Cellulitis of left lower limb. - Condition is Stable. - Discharge Instructions: Cellulitis, Adult, [id number], Foot Pain. - Prescriptions for Diclofenac Sodium 75 mg Oral Tablet, Delayed Release (E.C.) - take 1 tablet by ORAL route 2 times per day As needed; 30 tablet. Bactrim DS 800- 160 mg Oral Tablet - take 1 tablet by ORAL route every 12 hours for 7 days; 14 tablet. - Work release form, Medication Reconciliation Form, Thank You Letter, Antibiotic Education, Prescription Opioid Use form. - Follow up: Emergency Department; When: As needed; Reason: Worsening of condition. Follow up: Private Physician; When: 2 - 3 days; Reason: Recheck today's complaints, Continuance of care, Re-evaluation by your physician. Signatures: Dispatcher [employer] EDSarah Ruiz, KIN-C KIN-Isidro Mckay MD MD cha Attema, Lee, RN RN la1 Jluis Nogueira RN RN mg2 Corrections: (The following items were deleted from the chart) 09/19 20:12 19:47 09/19/2018 19:47 Discharged to Home. Impression: Pain in left foot; Cellulitis of mg2 left lower limb. Condition is Stable. Forms are Medication Reconciliation Form, Thank You Letter, Antibiotic Education, Prescription Opioid Use. Follow up: Emergency Department; When: As needed; Reason: Worsening of condition. Follow up: Private Physician; When: 2 - 3 days; Reason: Recheck today's complaints, Continuance of care, Re-evaluation by your physician. kb
--- NOTE | 2018-09-19 20:01 | RAD REPORT ---
EXAM DESCRIPTION: RAD - Foot Left 3 View - 09/19/2018 7:22 pm CLINICAL HISTORY: Left Foot pain FINDINGS: No fracture or dislocation is seen. Small calcaneal spurs
[2018-09-19 20:52] VITALS: BP 122/78; TEMP 98; O2SAT 100
== END 2018-09-19 20:12 | disposition home or self-care (01) ==
LOC: ER 18:09
DX: L03.116 Cellulitis of left lower limb (principal); I10 Essential (primary) hypertension
CPT/HCPCS: 99283

== ENCOUNTER 2018-12-10 11:18 | Inpatient (IN) | payer BC ==
[2018-12-10 12:11] LABS: Absolute Lymphocytes (CBC) 2.1 K/uL (0.7-4.9); Basophils % 0.5 % (0-1.3); Hematocrit 26.3 % (39.6-49.0); Lymphocytes % 30.7 % (15.3-44.8); MPV 8.8 fL (7.6-11.3); RBC Red Blood Cell Count 2.99 M/uL (4.33-5.43)
[2018-12-10] MEDS ORDERED: NA CHLORIDE 0.9% 1,000 ML ONE (12:24)
[2018-12-10 12:29] LABS: BUN Blood Urea Nitrogen 34 mg/dL (7-18); Bicarbonate 25 mmol/L (21-32); Glucose Level 99 mg/dL (74-106); Potassium 4.2 mmol/L (3.5-5.1); Sodium Level 143 mmol/L (136-145)
--- NOTE | 2018-12-10 14:40 | RAD REPORT ---
EXAM DESCRIPTION: CT - Abdomen Pelvis W Contrast - 12/10/2018 2:14 pm CLINICAL HISTORY: Abdominal pain COMPARISON: none. TECHNIQUE: Computed axial tomography of the abdomen pelvis was obtained. 100 cc Isovue-300 was admin istered intravenously. Oral contrast was not requested which limits evaluation of bowel. All CT scans are performed using dose optimization technique as appropriate and may include automated exposure control or mA/KV adjustment according to patient size. FINDINGS: Tiny nonobstructing bilateral renal calculi. Liver, spleen, pancreas and adrenals unremarkable There is no evidence of diverticulitis Small inguinal hernias contain fat Ulcerating plaque abdominal aorta with small amount of thrombus IMPRESSION: Tiny, bilateral nonobstructing renal calculi
[2018-12-10] MEDS ORDERED: PANTOPRAZOLE 40 MG INJ ONE (14:58)
[2018-12-10] MEDS ORDERED: WATER FOR INJ,STERILE 20 ML ONE (14:58)
[2018-12-10] MEDS ORDERED: ONDANSETRON 4 MG/2 ML VIAL IV PRN (15:04)
[2018-12-10] MEDS ORDERED: ACETAMINOPHEN 500 MG TAB PO PRN (15:04)
--- NOTE | 2018-12-10 15:21 | ER ---
Nurse's Notes [facility] Name: Mp Moreno Age: 63 yrs Sex: Male : 1955 Arrival Date: 12/10/2018 Time: 11:22 Bed 19 Private MD: Archie Blunt Diagnosis: Upper GI BLeed Presentation: 12/10 11:25 Presenting complaint: Dizziness, generalized weakness, and dark stool x 2 days. Hx of hb bleeding ulcer with blood transfusions. Transition of care: patient was not received from another setting of care. Onset of symptoms was December 09, 2018. Risk Assessment: Do you want to hurt yourself or someone else? Patient reports no desire to harm self or others. Initial Sepsis Screen: Does the patient meet any 2 criteria? No. Patient's initial sepsis screen is negative. Does the patient have a suspected source of infection? No. Patient's initial sepsis screen is negative. Care prior to arrival: None. 11:25 Method Of Arrival: Ambulatory hb 11:25 Acuity: ANTONETTE 3 hb Historical: - Allergies: 11:27 NKDA; hb - Home Meds: 11:27 aspirin 81 mg Oral chew 1 tab once daily [Active]; ezetimibe Oral 1 tab once daily hb [Active]; losartan 50 mg Oral tab 1 tab once daily [Active]; niacin 500 mg Oral cpER 1 caps nightly [Active]; simvastatin 40 mg Oral tab 1 tab once daily [Active]; - PMHx: 11:27 High Cholesterol; Hyperlipidemia; Hypertension; Kidney stones; Myocardial infarction; hb - Immunization history:: Adult Immunizations up to date. - Social history:: Smoking status: Patient/guardian denies using tobacco. - Ebola Screening: : No symptoms or risks identified at this time. Screenin:52 Abuse screen: Denies threats or abuse. Denies injuries from another. Nutritional ca1 screening: No deficits noted. Tuberculosis screening: No symptoms or risk factors identified. Fall Risk IV access (20 points). Assessment: 11:52 General: Appears in no apparent distress. comfortable, Behavior is calm, cooperative, ca1 appropriate for age. General: Reports fatigue for 0-12 hours. Pain: Denies pain. Neuro: Level of Consciousness is awake, alert, obeys commands, Oriented to person, place, time, situation, Appropriate for age Reports dizziness, since last night. Cardiovascular: Heart tones S1 S2 present Capillary refill < 3 seconds Patient's skin is warm and dry. Pulses are all present. Respiratory: Airway is patent Respiratory effort is even, unlabored, Respiratory pattern is regular, symmetrical, Breath sounds are clear bilaterally. GI: Abdomen is round non-distended, Bowel sounds present X 4 quads. Abd is soft and non tender X 4 quads. GI: Reports dark colored stool since last night. : No deficits noted. No signs and/or symptoms were reported regarding the genitourinary system. EENT: No deficits noted. No signs and/or symptoms were reported regarding the EENT system. Derm: Skin is intact, is healthy with good turgor, Skin is pink, warm \T\ dry. Musculoskeletal: Circulation, motion, and sensation intact. Capillary refill < 3 seconds, Range of motion: intact in all extremities. 12:20 Reassessment: Orthostatics done. Positive. Pt c/o severe dizziness. Pt skin was pale, ca1 cool and diaphoretic. Notified provider. Order given. 12:39 Reassessment: Patient appears in no apparent distress at this time. Patient and/or ca1 family updated on plan of care and expected duration. Pain level reassessed. Patient is alert, oriented x 3, equal unlabored respirations, skin warm/dry/pink. 13:11 Reassessment: Patient appears in no apparent distress at this time. Patient and/or ca1 family updated on plan of care and expected duration. Pain level reassessed. Patient is alert, oriented x 3, equal unlabored respirations, skin warm/dry/pink. 14:10 Reassessment: Patient appears in no apparent distress at this time. pt daughter sg leaving, requests a phone call when pt leaves for receiving facility. Call back number [phone] for Inessa Moreno. 15:07 Reassessment: Patient appears in no apparent distress at this time. Patient and/or ca1 family updated on plan of care and expected duration. Pain level reassessed. Patient is alert, oriented x 3, equal unlabored respirations, skin warm/dry/pink. 16:17 Reassessment: Patient appears in no apparent distress at this time. Patient and/or ca1 family updated on plan of care and expected duration. Pain level reassessed. Patient is alert, oriented x 3, equal unlabored respirations, skin warm/dry/pink. Pending room assignment. Reassessment: PT ambulated to restroom for a BM with quick steady gait. No reports of dizziness at this time. Reported black tarry stool. 17:21 Reassessment: Patient appears in no apparent distress at this time. Patient is alert, ca1 oriented x 3, equal unlabored respirations, skin warm/dry/pink. Vital Signs: 11:27 BP 124 / 72; Pulse 88; Resp 16; Temp 97.2; Pulse Ox 100% on R/A; Weight 70.76 kg; hb Height 5 ft. 8 in. (172.72 cm); Pain 0/10; 12:15 BP 110 / 65 Supine; Pulse 97; Resp 16 S; Pulse Ox 100% on R/A; ca1 12:17 BP 104 / 67 Sitting; Pulse 92; Resp 17 S; Pulse Ox 100% on R/A; ca1 12:20 BP 85 / 48 Standing; Pulse 116; Resp 19 S; Pulse Ox 98% on R/A; ca1 12:23 BP 107 / 74 Supine; Pulse 42 MON; Resp 19; Pulse Ox 89% on R/A; ca1 12:39 BP 116 / 58; Pulse 67; Resp 15 S; Pulse Ox 100% on R/A; ca1 13:11 BP 120 / 77; Pulse 77; Resp 14 S; Pulse Ox 100% on R/A; ca1 14:05 BP 115 / 68; Pulse 77; Resp 16 S; Pulse Ox 100% on R/A; ca1 15:07 BP 117 / 76; Pulse 79; Resp 16 S; Pulse Ox 100% on R/A; ca1 16:17 BP 109 / 73; Pulse 85; Resp 17 S; Pulse Ox 100% on R/A; ca1 17:21 BP 106 / 66; Pulse 81; Resp 16 S; Temp 98.2(O); Pulse Ox 100% on R/A; ca1 11:27 Body Mass Index 23.72 (70.76 kg, 172.72 cm) hb ED Course: 11:22 Patient arrived in ED. mr 11:22 Archie Blunt MD is Private Physician. mr 11:26 Roberto Cox MD is Attending Physician. kdr 11:27 Triage completed. hb 11:27 Arm band placed on. hb 11:45 Jahaira Sahni, RN is Primary Nurse. ca1 11:52 Patient has correct armband on for positive identification. Placed in gown. Bed in low ca1 position. Call light in reach. Side rails up X 1. threat monitoring analyst on. Pulse ox on. NIBP on. Warm blanket given. 11:52 No provider procedures requiring assistance completed. Inserted saline lock: 18 gauge ca1 in right antecubital area, using aseptic technique. Blood collected. 14:14 Abdomen In Process Unspecified. EDMS 14:58 Archie Blunt MD is Hospitalizing Provider. kdr 15:05 Inserted saline lock: 20 gauge in left antecubital area, using aseptic technique. ca1 17:22 Patient admitted, IV remains in place. ca1 Administered Medications: 12:23 Drug: NS 0.9% 1000 ml Route: IV; Rate: 1 bolus; Site: right antecubital; ca1 13:32 Follow up: Response: No adverse reaction; Marked relief of symptoms; IV Status: ca1 Completed infusion 15:00 Drug: ProTONIX 80 mg Route: IVP; Site: right antecubital; ca1 16:19 Follow up: Response: No adverse reaction ca1 15:13 Drug: ProTONIX 8 mg/hr Route: IV; Rate: 25 ml/hr; Site: right antecubital; ca1 16:23 Follow up: Response: No adverse reaction; IV Status: Infusion continued upon admission ca1 Outcome: 15:19 Decision to Hospitalize by Provider. kdr 17:22 Admitted to Med/surg accompanied by tech, via wheelchair, room 212, with chart, Report ca1 called to SONALI Lopez 17:22 Condition: stable 17:22 Instructed on the need for admit. 17:33 Patient left the ED. ca1 Signatures: Dispatcher [employer] EDBenjamin Peter RN RN sg Rittger, Kevin, MD MD kdr Rivera, Mary mr Baxter, Heather, RN RN Jahaira Sahni RN RN ca1
--- NOTE | 2018-12-10 15:21 | EDPHYS ---
Physician Documentation [facility] Name: Mp Moreno Age: 63 yrs Sex: Male : 1955 Arrival Date: 12/10/2018 Time: 11:22 Bed 19 Private MD: Archie Blunt ED Physician Roberto Cox HPI: 12/11 13:39 This 63 yrs old Male presents to ER via Ambulatory with complaints of kdr Weakness, Dizziness. 13:39 The patient states that for the past few days, he has been feeling weak. Today he was kdr dizzy though he still went out and rode his bike for a couple of blocks. He has not had this before except for June of this year when he was diagnosed with a FI bleed and was transferred to [facility]. He has been otherwise well since then. Onset: The symptoms/episode began/occurred gradually, 2 day(s) ago. Severity of symptoms: At their worst the symptoms were mild in the emergency department the symptoms have improved mildly. The patient has experienced a previous episode, approximately 6 months ago. The patient has not recently seen a physician. Historical: - Allergies: 12/10 11:27 NKDA; hb - Home Meds: 11:27 aspirin 81 mg Oral chew 1 tab once daily [Active]; ezetimibe Oral 1 tab once daily hb [Active]; losartan 50 mg Oral tab 1 tab once daily [Active]; niacin 500 mg Oral cpER 1 caps nightly [Active]; simvastatin 40 mg Oral tab 1 tab once daily [Active]; - PMHx: 11:27 High Cholesterol; Hyperlipidemia; Hypertension; Kidney stones; Myocardial infarction; hb - Immunization history:: Adult Immunizations up to date. - Social history:: Smoking status: Patient/guardian denies using tobacco. - Ebola Screening: : No symptoms or risks identified at this time. ROS: 12/11 13:39 Constitutional: Negative for fever, chills, and weight loss, has been generally weak kdr and dizzy today Eyes: Negative for injury, pain, redness, and discharge, ENT: Negative for injury, pain, and discharge, Neck: Negative for injury, pain, and swelling, Cardiovascular: Negative for chest pain, palpitations, and edema, Respiratory: Negative for shortness of breath, cough, wheezing, and pleuritic chest pain, Abdomen/GI: Negative for abdominal pain, nausea, vomiting, diarrhea, and constipation, Back: Negative for injury and pain, : Negative for injury, bleeding, discharge, and swelling, MS/Extremity: Negative for injury and deformity, Skin: Negative for injury, rash, and discoloration, Psych: Negative for depression, anxiety, suicide ideation, homicidal ideation, and hallucinations, Allergy/Immunology: Negative for hives, rash, and allergies, Endocrine: Negative for neck swelling, polydipsia, polyuria, polyphagia, and marked weight changes, Hematologic/Lymphatic: Negative for swollen nodes, abnormal bleeding, and unusual bruising. Neuro: Positive for dizziness, weakness, Negative for loss of consciousness, syncope, near syncope, visual changes. Exam: 13:39 Constitutional: This is a well developed, well nourished patient who is awake, alert, kdr and in no acute distress. Head/Face: Normocephalic, atraumatic. Eyes: Pupils equal round and reactive to light, extra-ocular motions intact. Lids and lashes normal. Conjunctiva and sclera are non-icteric and not injected. Cornea within normal limits. Periorbital areas with no swelling, redness, or edema. Neck: Trachea midline, no thyromegaly or masses palpated, and no cervical lymphadenopathy. Supple, full range of motion without nuchal rigidity, or vertebral point tenderness. No Meningismus. Chest/axilla: Normal chest wall appearance and motion. Nontender with no deformity. No lesions are appreciated. Cardiovascular: Regular rate and rhythm with a normal S1 and S2. No gallops, murmurs, or rubs. Normal PMI, no JVD. No pulse deficits. Respiratory: Lungs have equal breath sounds bilaterally, clear to auscultation and percussion. No rales, rhonchi or wheezes noted. No increased work of breathing, no retractions or nasal flaring. Abdomen/GI: Soft, non-tender, with normal bowel sounds. No distension or tympany. No guarding or rebound. No evidence of tenderness throughout. Back: No spinal tenderness. No costovertebral tenderness. Full range of motion. Skin: Warm, dry with normal turgor. Normal color with no rashes, no lesions, and no evidence of cellulitis. MS/ Extremity: Pulses equal, no cyanosis. Neurovascular intact. Full, normal range of motion. Neuro: Awake and alert, GCS 15, oriented to person, place, time, and situation. Cranial nerves II-XII grossly intact. Motor strength 5/5 in all extremities. Sensory grossly intact. Cerebellar exam normal. Normal gait. Psych: Awake, alert, with orientation to person, place and time. Behavior, mood, and affect are within normal limits. 13:39 Abdomen/GI: Rectal exam: Prostate: normal, rectal tone normal, Stool: guaiac positive, black. Vital Signs: 12/10 11:27 BP 124 / 72; Pulse 88; Resp 16; Temp 97.2; Pulse Ox 100% on R/A; Weight 70.76 kg; hb Height 5 ft. 8 in. (172.72 cm); Pain 0/10; 12:15 BP 110 / 65 Supine; Pulse 97; Resp 16 S; Pulse Ox 100% on R/A; ca1 12:17 BP 104 / 67 Sitting; Pulse 92; Resp 17 S; Pulse Ox 100% on R/A; ca1 12:20 BP 85 / 48 Standing; Pulse 116; Resp 19 S; Pulse Ox 98% on R/A; ca1 12:23 BP 107 / 74 Supine; Pulse 42 MON; Resp 19; Pulse Ox 89% on R/A; ca1 12:39 BP 116 / 58; Pulse 67; Resp 15 S; Pulse Ox 100% on R/A; ca1 13:11 BP 120 / 77; Pulse 77; Resp 14 S; Pulse Ox 100% on R/A; ca1 14:05 BP 115 / 68; Pulse 77; Resp 16 S; Pulse Ox 100% on R/A; ca1 15:07 BP 117 / 76; Pulse 79; Resp 16 S; Pulse Ox 100% on R/A; ca1 16:17 BP 109 / 73; Pulse 85; Resp 17 S; Pulse Ox 100% on R/A; ca1 17:21 BP 106 / 66; Pulse 81; Resp 16 S; Temp 98.2(O); Pulse Ox 100% on R/A; ca1 11:27 Body Mass Index 23.72 (70.76 kg, 172.72 cm) hb MDM: 15:19 Patient medically screened. kdr 12/11 13:39 Data reviewed: vital signs, nurses notes, lab test result(s), radiologic studies. kdr Counseling: I had a detailed discussion with the patient and/or guardian regarding: the historical points, exam findings, and any diagnostic results supporting the discharge/admit diagnosis, lab results, radiology results, the need for further work-up and treatment in the hospital. Physician consultation: Xu Navas MD. 12/10 11:58 Order name: CBC with Diff; Complete Time: 12:33 kdr 12/10 11:58 Order name: Chem 7; Complete Time: 12:33 kdr 12/10 15:10 Order name: Basic Metabolic Panel EDMS 12/10 15:10 Order name: Basic Metabolic Panel EDMS 12/10 15:10 Order name: CBC with Automated Diff EDMS 12/10 15:10 Order name: CBC with Automated Diff EDMS 12/10 14:07 Order name: Abdomen EDMS 12/10 15:10 Order name: Lipase EDMS 12/10 15:10 Order name: Lipase EDMS 12/10 15:10 Order name: Liver (Hepatic) Function EDMS 12/10 15:10 Order name: Liver (Hepatic) Function EDMS 12/10 15:20 Order name: CBC with Diff kdr 12/10 11:58 Order name: Orthostatic Blood Pressure; Complete Time: 12:34 kdr 12/10 15:10 Order name: NPO EDMS Administered Medications: 12/10 12:23 Drug: NS 0.9% 1000 ml Route: IV; Rate: 1 bolus; Site: right antecubital; ca1 13:32 Follow up: Response: No adverse reaction; Marked relief of symptoms; IV Status: ca1 Completed infusion 15:00 Drug: ProTONIX 80 mg Route: IVP; Site: right antecubital; ca1 16:19 Follow up: Response: No adverse reaction ca1 15:13 Drug: ProTONIX 8 mg/hr Route: IV; Rate: 25 ml/hr; Site: right antecubital; ca1 16:23 Follow up: Response: No adverse reaction; IV Status: Infusion continued upon admission ca1 Disposition: 12/10/18 15:19 Hospitalization ordered by Archie Blunt for Inpatient Admission. Preliminary diagnosis is Upper GI BLeed. - Bed requested for Telemetry/MedSurg (Inpatient). - Status is Inpatient Admission. ca1 - Condition is Fair. - Problem is new. - Symptoms have improved. UTI on Admission? No Signatures: Dispatcher [employer] EDCT Rittger, Roberto, MD Becka Gutierres, RN RN Paresh Watt, RN RN ja1 Jahaira Sahni, RN RN ca1 Corrections: (The following items were deleted from the chart) 14:07 13:52 Abdomen W/ Con+CT.RAD.BRZ ordered. EDMS EDMS 17:13 15:19 Hospitalization Ordered by Archie Blunt MD for Inpatient Admission. Preliminary ja1 diagnosis is Upper GI BLeed. Bed requested for Telemetry/MedSurg (Inpatient). Status is Inpatient Admission. Condition is Fair. Problem is new. Symptoms have improved. UTI on Admission? No. kdr 17:33 17:13 12/10/2018 15:19 Hospitalization Ordered by Archie Blunt MD for Inpatient ca1 Admission. Preliminary diagnosis is Upper GI BLeed. Bed requested for Telemetry/MedSurg (Inpatient). Status is Inpatient Admission. Condition is Fair. Problem is new. Symptoms have improved. UTI on Admission? No. ja1
[2018-12-10] MEDS ORDERED: CIPROFLOXACIN 400mg IV 400 MG/200 ML BAG IV SCH (15:30)
[2018-12-10] MEDS ORDERED: D5 0.45 NS 1,000 ML IV SCH (16:00)
[2018-12-10] MEDS ORDERED: METRONIDAZOLE 500mg IVPB 500 MG/100 ML BAG IV SCH (16:00)
[2018-12-10] MEDS ORDERED: PANTOPRAZOLE INJ 80 MG in NA CHLORIDE 0.9% 250 ML IV SCH (16:00)
[2018-12-10 18:09] VITALS: BMI 23.7
[2018-12-10] MEDS ORDERED: LIDOCAINE 1% MPF 5 ML VIAL ONE (19:16)
[2018-12-10] MEDS ORDERED: propofoL 200 MG/20 ML VIAL IV ONE (19:16)
[2018-12-10] MEDS ORDERED: Ringers Lactate 1,000 ML IV ONE (19:48)
--- NOTE | 2018-12-10 20:20 | ENDO RPT ---
[address], [address] EGD PROCEDURE REPORT EXAM DATE: 12/10/2018 PATIENT NAME: Mp Moreno MR#: [id number] BIRTHDATE: 1955 ATTENDING: Xu Navas Dr STATUS: outpatient WOVEN LABEL DESIGNER: Nadine Mace RN and Radha France INDICATIONS: The patient is a 63 yr old Male here for an EGD due to melenic bleeding, anemia, h/o bleeding PUD and HP in 06/23 at [facility] with HP eradication therapy PROCEDURE PERFORMED: EGD with biopsy MEDICATIONS: Per Anesthesia. TOPICAL ANESTHETIC: none CONSENT: The patient understands the risks and benefits of the procedure and understands that these risks include, but are not limited to: sedation, allergic reaction, infection, perforation and/or bleeding. Alternative means of evaluation and treatment include, among others: physical exam, x-rays, and/or surgical intervention. The patient elects to proceed with this endoscopic procedure. DESCRIPTION OF PROCEDURE: During intra-op preparation period all mechanical medical equipment was checked for proper function. Hand hygiene and appropriate measures for infection prevention was taken. Procedure, possible complications, and alternatives including but not limited to the possibility of bleeding, perforation, tear, infection, sepsis, need for surgery, need for blood transfusion, and anesthesia related complications were explained to the patient. After the risks, benefits and alternatives of the procedure were thoroughly explained, Informed consent was verified, confirmed and timeout was successfully executed by the treatment team. The patient was placed in the left lateral position. The patient was anesthetized with topical anesthesia. Through the anesthetized oropharyngeal area, the scope was passed without any difficulty. The Pentax EG-[id number] ([id number]) endoscope was introduced through the mouth and advanced to the second portion of the duodenum. Retroflexed views revealed a small hiatal hernia. The gastroscope was then slowly withdrawn and removed. A small hiatal hernia was found. Multiple (2) erosions were found in the antrum. Multiple biopsies were obtained and sent to pathology. ADVERSE EVENTS: There were no complications. IMPRESSIONS: 1. Small hiatal hernia 2. Multiple (2) erosions in the antrum, s/p gastric biopsies RECOMMENDATIONS: 1. await biopsy results 2. acid suppression therapy 3. colonoscopy 4. small bowel series and as indicated pillcam REPEAT EXAM: Xu Navas Dr eSigned: Xu Navas Dr 12/10/2018 8:20 PM cc: Archie Blunt M.D. CPT CODES: ICD9 CODES: PATIENT NAME: Mp Moreno MR#: [id number]
[2018-12-10] MEDS: CIPROFLOXACIN 400mg IV 400 MG/200 ML BAG IV SCH (22:55)
[2018-12-10] MEDS: METRONIDAZOLE 500mg IVPB 500 MG/100 ML BAG IV SCH (23:52)
[2018-12-11 04:16] VITALS: O2SAT 97
[2018-12-11] MEDS: METRONIDAZOLE 500mg IVPB 500 MG/100 ML BAG IV SCH ×4 (05:24→23:39)
[2018-12-11 05:38] LABS: Absolute Lymphocytes (CBC) 1.7 K/uL (0.7-4.9); Basophils % 0.4 % (0-1.3); Lymphocytes % 25.8 % (15.3-44.8); MPV 8.4 fL (7.6-11.3); RBC Red Blood Cell Count 2.38 M/uL (4.33-5.43)
[2018-12-11] MEDS ORDERED: INFLUENZA VACCINE (for 3y+) 0.5 ML DOSE IMVAC ONE (06:00)
[2018-12-11 06:06] LABS: ALT/SGPT 20 U/L (12-78); AST/SGOT 16 U/L (15-37); Albumin 2.7 g/dL (3.4-5.0); Alkaline Phosphatase 59 U/L (45-117); BUN Blood Urea Nitrogen 24 mg/dL (7-18); Bicarbonate 25 mmol/L (21-32); Bilirubin Direct 0.1 mg/dL (0-0.2); Bilirubin Total 0.3 mg/dL (0.2-1.0); Glucose Level 94 mg/dL (74-106); Lipase 131 U/L (73-393); Potassium 4.2 mmol/L (3.5-5.1); Protein, Total 5.3 g/dL (6.4-8.2); Sodium Level 142 mmol/L (136-145)
--- NOTE | 2018-12-11 09:21 | RAD REPORT ---
EXAM DESCRIPTION: RAD - Small Bowel Series - 12/11/2018 8:58 am CLINICAL HISTORY: Abdominal pain, GI bleed COMPARISON: None. FINDINGS: Slabber film shows a nonspecific bowel gas pattern. No obstruction or free air. No suspiciou s calcifications. Gastric size and mucosal fold pattern are normal. No delay in transit of contrast into the small mary l. Small bowel is normal in diameter with no mucosal fold thickening. No intrinsic or extrinsic mass identifiable. Terminal ileum has normal appearance. Transit time to the colon is normal at 1 hour. IMPRESSION: Normal small bowel series.
[2018-12-11] MEDS: PANTOPRAZOLE 40MG TABLET PO SCH ×2 (09:52→17:13)
[2018-12-11] MEDS: CIPROFLOXACIN 400mg IV 400 MG/200 ML BAG IV SCH ×2 (09:52→21:11)
[2018-12-11] MEDS ORDERED: NA CHLORIDE 0.9% 250 ML ONE ×2 (10:39→15:44)
[2018-12-11 19:48] LABS: Hematocrit 27.2 % (39.6-49.0)
[2018-12-12] MEDS: METRONIDAZOLE 500mg IVPB 500 MG/100 ML BAG IV SCH ×3 (06:05→18:00)
[2018-12-12] MEDS: PANTOPRAZOLE 40MG TABLET PO SCH ×2 (07:56→18:42)
[2018-12-12] MEDS: CIPROFLOXACIN 400mg IV 400 MG/200 ML BAG IV SCH (07:57)
[2018-12-12 16:06] LABS: Absolute Lymphocytes (CBC) 1.6 K/uL (0.7-4.9); Basophils % 0.5 % (0-1.3); Hematocrit 28.7 % (39.6-49.0); Lymphocytes % 26.3 % (15.3-44.8); MPV 8.9 fL (7.6-11.3); RBC Red Blood Cell Count 3.26 M/uL (4.33-5.43)
[2018-12-12 17:51] VITALS: BP 172/81; TEMP 98.2
--- NOTE | 2018-12-12 21:03 | PN ---
Date of Progress Note: 12/12/2018 Patient states he feels hungry and quite a bit better today. Awaiting the H and H, which is above 9, which it was yesterday. I feel he can be discharged on Protonix and dietary control. To follow up with blood counts and probable colonoscopy at a later date. Follow up within the next week in fact tasneem horvath is discharged; and if his hemoglobin shows some possibility of continuous bleeding, we will keep hi m at least overnight. HR/MODL Voice ID: [id number] Report ID: [id number]
--- OUTSIDE RECORDS SUMMARY | 2018-12-15 23:19 | XMS REPORT ---
:1955 [facility] Address [address] [place] [address] Care Team Providers Name Role Phone LEANNE [...] Comments WHITE BLOOD CELL COUNT (BEAKER) (test yblb=203) 10.1 K/ L 3.5-10.5 RED BLOOD CELL COUNT (BEAKER) (test xyqv=703) 3.22 M/ L 4.63-6.08 HEMOGLOBIN (BEAKER) (test afoe=939) 9.8 GM/DL 13.7-17.5 HEMATOCRIT (BEAKER) (test pszt=009) 29.5 % 40.1-51.0 MEAN CORPUSCULAR VOLUME (BEAKER) (test qwef=398) 91.6 fL 79.0-92.2 MEAN CORPUSCULAR HEMOGLOBIN (BEAKER) (test eqae=366) 30.4 pg 25.7-32.2 MEAN CORPUSCULAR HEMOGLOBIN CONC (BEAKER) (test mnnx=118) 33.2 GM/DL 32.3- 36.5 RED CELL DISTRIBUTION WIDTH (BEAKER) (test amym=996) 15.3 % 11.6-14.4 PLATELET COUNT (BEAKER) (test ivwf=754) 241 K/CU MM 150-450 MEAN PLATELET VOLUME (BEAKER) (test uant=503) 10.3 fL 9.4-12.4 NUCLEATED RED BLOOD CELLS (BEAKER) (test ezzs=682) 1 /100 WBC 0-0 NEUTROPHILS RELATIVE PERCENT (BEAKER) (test nbsa=845) 69 % LYMPHOCYTES RELATIVE PERCENT (BEAKER) (test nfbx=692) 20 % MONOCYTES RELATIVE PERCENT (BEAKER) (test mnhi=815) 6 % EOSINOPHILS RELATIVE PERCENT (BEAKER) (test cixi=521) 3 % BASOPHILS RELATIVE PERCENT (BEAKER) (test bjqg=971) 0 % NEUTROPHILS ABSOLUTE COUNT (BEAKER) (test opwq=556) 6.99 K/ L 1.78-5.38 LYMPHOCYTES ABSOLUTE COUNT (BEAKER) (test ontu=376) 1.98 K/ L 1.32-3.57 MONOCYTES ABSOLUTE COUNT (BEAKER) (test azua=736) 0.65 K/ L 0.30-0.82 EOSINOPHILS ABSOLUTE COUNT (BEAKER) (test kvug=143) 0.27 K/ L 0.04-0.54 BASOPHILS ABSOLUTE COUNT (BEAKER) (test vzem=742) 0.04 K/ L 0.01-0.08 IMMATURE GRANULOCYTES-RELATIVE PERCENT (BEAKER) (test 2 % 0-1 akjn=4933) BASIC METABOLIC [id number] 06:41:00 Test Item Value Reference Range Comments SODIUM (BEAKER) (test 143 meq/L 136-145 bpjw=922) POTASSIUM (BEAKER) (test 3.7 meq/L 3.5-5.1 yuet=291) CHLORIDE (BEAKER) (test 112 meq/L 98-107 dvtx=751) CO2 (BEAKER) (test 26 meq/L 22-29 xbms=731) BLOOD UREA NITROGEN 11 mg/dL 7-21 (BEAKER) (test gocw=629) CREATININE (BEAKER) (test 0.79 mg/dL 0.57-1.25 kdca=556) GLUCOSE RANDOM (BEAKER) 91 mg/dL 70-105 (test xznz=956) CALCIUM (BEAKER) (test 8.1 mg/dL 8.4-10.2 ezoa=183) EGFR (BEAKER) (test mL/min/1.73 sq m INSUFFICIENT CLINICAL DATA gjma=7600) TO CALCULATE ESTIMATED GFR. CBC W/PLT COUNT & AUTO [id number] 20:31:00 Test Item Value Reference Range Comments WHITE BLOOD CELL COUNT (BEAKER) (test lkxm=129) 9.2 K/ L 3.5-10.5 RED BLOOD CELL COUNT (BEAKER) (test oqjt=833) 3.01 M/ L 4.63-6.08 HEMOGLOBIN (BEAKER) (test rahf=035) 9.5 GM/DL 13.7-17.5 HEMATOCRIT (BEAKER) (test azjp=505) 27.3 % 40.1-51.0 MEAN CORPUSCULAR VOLUME (BEAKER) (test hlte=865) 90.7 fL 79.0-92.2 MEAN CORPUSCULAR HEMOGLOBIN (BEAKER) (test 31.6 pg 25.7-32.2 omqp=386) MEAN CORPUSCULAR HEMOGLOBIN CONC (BEAKER) (test 34.8 GM/DL 32.3-36.5 uvqd=104) RED CELL DISTRIBUTION WIDTH (BEAKER) (test 14.7 % 11.6-14.4 tdhn=663) PLATELET COUNT (BEAKER) (test wqil=598) 242 K/CU MM 150-450 MEAN PLATELET VOLUME (BEAKER) (test vbtx=603) 10.4 fL 9.4-12.4 NUCLEATED RED BLOOD CELLS (BEAKER) (test 1 /100 WBC 0-0 bvcz=684) NEUTROPHILS RELATIVE PERCENT (BEAKER) (test 65 % jwfx=400) LYMPHOCYTES RELATIVE PERCENT (BEAKER) (test 20 % kckj=918) MONOCYTES RELATIVE PERCENT (BEAKER) (test 9 % raib=604) EOSINOPHILS RELATIVE PERCENT (BEAKER) (test 3 % dghj=417) BASOPHILS RELATIVE PERCENT (BEAKER) (test 0 % rihn=706) NEUTROPHILS ABSOLUTE COUNT (BEAKER) (test 6.00 K/ L 1.78-5.38 ocky=793) LYMPHOCYTES ABSOLUTE COUNT (BEAKER) (test 1.84 K/ L 1.32-3.57 fgky=370) MONOCYTES ABSOLUTE COUNT (BEAKER) (test 0.81 K/ L 0.30-0.82 htks=113) EOSINOPHILS ABSOLUTE COUNT (BEAKER) (test 0.27 K/ L 0.04-0.54 zvqe=081) BASOPHILS ABSOLUTE COUNT (BEAKER) (test 0.04 K/ L 0.01-0.08 ashz=131) IMMATURE GRANULOCYTES-RELATIVE PERCENT (BEAKER) 3 % 0-1 (test fios=6090) CBC W/PLT COUNT & AUTO [id number] 09:40:00 Test Item Value Reference Range Comments WHITE BLOOD CELL COUNT (BEAKER) (test hxeg=885) 8.5 K/ L 3.5-10.5 RED BLOOD CELL COUNT (BEAKER) (test gueo=030) 2.57 M/ L 4.63-6.08 HEMOGLOBIN (BEAKER) (test zknb=423) 8.0 GM/DL 13.7-17.5 HEMATOCRIT (BEAKER) (test vhno=059) 24.0 % 40.1-51.0 MEAN CORPUSCULAR VOLUME (BEAKER) (test exjs=308) 93.4 fL 79.0-92.2 MEAN CORPUSCULAR HEMOGLOBIN (BEAKER) (test 31.1 pg 25.7-32.2 vkaq=896) MEAN CORPUSCULAR HEMOGLOBIN CONC (BEAKER) (test 33.3 GM/DL 32.3-36.5 ubea=440) RED CELL DISTRIBUTION WIDTH (BEAKER) (test 14.3 % 11.6-14.4 khyq=464) PLATELET COUNT (BEAKER) (test nmdj=230) 228 K/CU MM 150-450 MEAN PLATELET VOLUME (BEAKER) (test pehv=237) 10.9 fL 9.4-12.4 NUCLEATED RED BLOOD CELLS (BEAKER) (test 1 /100 WBC 0-0 tkkj=704) NEUTROPHILS RELATIVE PERCENT (BEAKER) (test 71 % otbl=986) LYMPHOCYTES RELATIVE PERCENT (BEAKER) (test 20 % afhb=887) MONOCYTES RELATIVE PERCENT (BEAKER) (test 5 % isut=337) EOSINOPHILS RELATIVE PERCENT (BEAKER) (test 2 % opzm=360) BASOPHILS RELATIVE PERCENT (BEAKER) (test 0 % uavg=317) NEUTROPHILS ABSOLUTE COUNT (BEAKER) (test 6.07 K/ L 1.78-5.38 gdpz=017) LYMPHOCYTES ABSOLUTE COUNT (BEAKER) (test 1.65 K/ L 1.32-3.57 kxgj=721) MONOCYTES ABSOLUTE COUNT (BEAKER) (test 0.42 K/ L 0.30-0.82 uvsd=879) EOSINOPHILS ABSOLUTE COUNT (BEAKER) (test 0.20 K/ L 0.04-0.54 nrje=127) BASOPHILS ABSOLUTE COUNT (BEAKER) (test 0.03 K/ L 0.01-0.08 qafi=644) IMMATURE GRANULOCYTES-RELATIVE PERCENT (BEAKER) 1 % 0-1 (test gxfs=4671) BASIC METABOLIC [id number] 06:50:00 Test Item Value Reference Range Comments SODIUM (BEAKER) (test 139 meq/L 136-145 woww=878) POTASSIUM (BEAKER) (test 3.9 meq/L 3.5-5.1 qjdl=031) CHLORIDE (BEAKER) (test 109 meq/L 98-107 rqib=527) CO2 (BEAKER) (test 23 meq/L 22-29 emas=324) BLOOD UREA NITROGEN 14 mg/dL 7-21 (BEAKER) (test btxq=772) CREATININE (BEAKER) (test 0.77 mg/dL 0.57-1.25 cegm=093) GLUCOSE RANDOM (BEAKER) 88 mg/dL 70-105 (test apcm=509) CALCIUM (BEAKER) (test 8.0 mg/dL 8.4-10.2 yuti=023) EGFR (BEAKER) (test mL/min/1.73 sq m INSUFFICIENT CLINICAL DATA rvtv=4639) TO CALCULATE ESTIMATED GFR. CBC W/PLT COUNT & AUTO [id number] 23:23:00 Test Item Value Reference Range Comments WHITE BLOOD CELL COUNT (BEAKER) (test iydx=994) 8.5 K/ L 3.5-10.5 RED BLOOD CELL COUNT (BEAKER) (test onsn=322) 2.29 M/ L 4.63-6.08 HEMOGLOBIN (BEAKER) (test lotc=848) 7.0 GM/DL 13.7-17.5 HEMATOCRIT (BEAKER) (test kxvo=426) 21.0 % 40.1-51.0 MEAN CORPUSCULAR VOLUME (BEAKER) (test bvcg=941) 91.7 fL 79.0-92.2 MEAN CORPUSCULAR HEMOGLOBIN (BEAKER) (test 30.6 pg 25.7-32.2 qqyy=778) MEAN CORPUSCULAR HEMOGLOBIN CONC (BEAKER) (test 33.3 GM/DL 32.3-36.5 mzcu=197) RED CELL DISTRIBUTION WIDTH (BEAKER) (test 14.0 % 11.6-14.4 fltf=924) PLATELET COUNT (BEAKER) (test aqim=212) 210 K/CU MM 150-450 MEAN PLATELET VOLUME (BEAKER) (test hkat=558) 10.8 fL 9.4-12.4 NUCLEATED RED BLOOD CELLS (BEAKER) (test 0 /100 WBC 0-0 ozya=724) NEUTROPHILS RELATIVE PERCENT (BEAKER) (test 65 % vaxw=830) LYMPHOCYTES RELATIVE PERCENT (BEAKER) (test 23 % rdzd=729) MONOCYTES RELATIVE PERCENT (BEAKER) (test 8 % aktu=226) EOSINOPHILS RELATIVE PERCENT (BEAKER) (test 3 % jdhi=184) BASOPHILS RELATIVE PERCENT (BEAKER) (test 0 % akwb=436) NEUTROPHILS ABSOLUTE COUNT (BEAKER) (test 5.52 K/ L 1.78-5.38 myst=293) LYMPHOCYTES ABSOLUTE COUNT (BEAKER) (test 1.94 K/ L 1.32-3.57 katj=213) MONOCYTES ABSOLUTE COUNT (BEAKER) (test 0.65 K/ L 0.30-0.82 rzth=532) EOSINOPHILS ABSOLUTE COUNT (BEAKER) (test 0.22 K/ L 0.04-0.54 etqa=056) BASOPHILS ABSOLUTE COUNT (BEAKER) (test 0.02 K/ L 0.01-0.08 cexo=896) IMMATURE GRANULOCYTES-RELATIVE PERCENT (BEAKER) 1 % 0-1 (test bqvc=9721) CBC W/PLT COUNT & AUTO [id number] 10:14:00 Test Item Value Reference Range Comments WHITE BLOOD CELL COUNT (BEAKER) (test uvjc=863) 7.1 K/ L 3.5-10.5 RED BLOOD CELL COUNT (BEAKER) (test mjny=345) 2.59 M/ L 4.63-6.08 HEMOGLOBIN (BEAKER) (test vzyy=927) 7.7 GM/DL 13.7-17.5 HEMATOCRIT (BEAKER) (test tyks=524) 23.7 % 40.1-51.0 MEAN CORPUSCULAR VOLUME (BEAKER) (test hzds=804) 91.5 fL 79.0-92.2 MEAN CORPUSCULAR HEMOGLOBIN (BEAKER) (test 29.7 pg 25.7-32.2 ipqs=931) MEAN CORPUSCULAR HEMOGLOBIN CONC (BEAKER) (test 32.5 GM/DL 32.3-36.5 cmmf=978) RED CELL DISTRIBUTION WIDTH (BEAKER) (test 13.8 % 11.6-14.4 xzsh=546) PLATELET COUNT (BEAKER) (test zaea=136) 202 K/CU MM 150-450 MEAN PLATELET VOLUME (BEAKER) (test axiy=638) 10.5 fL 9.4-12.4 NUCLEATED RED BLOOD CELLS (BEAKER) (test 0 /100 WBC 0-0 lhux=828) NEUTROPHILS RELATIVE PERCENT (BEAKER) (test 69 % nlar=099) LYMPHOCYTES RELATIVE PERCENT (BEAKER) (test 21 % ldvm=967) MONOCYTES RELATIVE PERCENT (BEAKER) (test 6 % upsi=412) EOSINOPHILS RELATIVE PERCENT (BEAKER) (test 3 % arwc=632) BASOPHILS RELATIVE PERCENT (BEAKER) (test 0 % oygt=375) NEUTROPHILS ABSOLUTE COUNT (BEAKER) (test 4.88 K/ L 1.78-5.38 ikmf=389) LYMPHOCYTES ABSOLUTE COUNT (BEAKER) (test 1.52 K/ L 1.32-3.57 kala=169) MONOCYTES ABSOLUTE COUNT (BEAKER) (test 0.42 K/ L 0.30-0.82 igbf=058) EOSINOPHILS ABSOLUTE COUNT (BEAKER) (test 0.19 K/ L 0.04-0.54 ouae=172) BASOPHILS ABSOLUTE COUNT (BEAKER) (test 0.02 K/ L 0.01-0.08 txsl=746) IMMATURE GRANULOCYTES-RELATIVE PERCENT (BEAKER) 1 % 0-1 (test mihr=5568) BASIC METABOLIC [id number] 06:07:00 Test Item Value Reference Range Comments SODIUM (BEAKER) (test 138 meq/L 136-145 juod=140) POTASSIUM (BEAKER) (test 3.7 meq/L 3.5-5.1 pfuz=894) CHLORIDE (BEAKER) (test 108 meq/L 98-107 uznq=372) CO2 (BEAKER) (test 26 meq/L 22-29 phja=749) BLOOD UREA NITROGEN 17 mg/dL 7-21 (BEAKER) (test cfqi=298) CREATININE (BEAKER) (test 0.81 mg/dL 0.57-1.25 ljsr=972) GLUCOSE RANDOM (BEAKER) 100 mg/dL 70-105 (test gisy=453) CALCIUM (BEAKER) (test 7.9 mg/dL 8.4-10.2 ivtj=341) EGFR (BEAKER) (test mL/min/1.73 sq m INSUFFICIENT CLINICAL DATA fuxf=5305) TO CALCULATE ESTIMATED GFR. [id number] 05:59:00 Test Item Value Reference Range Comments MAGNESIUM (BEAKER) (test tydh=868) 1.8 mg/dL 1.6-2.6 IRON, TIBC, % SAT. (WITHOUT FERRITIN)[id number] 05:27:00 Test Item Value Reference Range Comments IRON (BEAKER) (test lvec=579) 34.0 ug/dL 40.0-160.0 TOTAL IRON BINDING CAPACITY (BEAKER) (test 196 ug/dL 250-450 zejr=893) IRON % SATURATION (2) (BEAKER) (test nckt=1182) 17 % 20-55 Can do this with the next CBCPROTHROMBIN [id number] 05:10:00 Test Item Value Reference Range Comments PROTIME (BEAKER) (test cnha=778) 13.4 seconds 11.7-14.7 INR (BEAKER) (test dmzi=822) 1.1 <=5.9 RECOMMENDED COUMADIN/WARFARIN INR THERAPY RANGESSTANDARD DOSE: 2.0 - 3.0 Includes: PROPHYLAXIS forvenous thrombosis, systemic embolization; TREATMENT for venous thrombosis and/or pulmonary embolus.HIGH RISK: Target INR is 2.5-3.5 for patients with mechanical heart valves.CBC W/PLT COUNT & AUTO [id number] 00:26:00 Test Item Value Reference Range Comments WHITE BLOOD CELL COUNT (BEAKER) (test sktx=441) 7.8 K/ L 3.5-10.5 RED BLOOD CELL COUNT (BEAKER) (test rkht=250) 2.36 M/ L 4.63-6.08 HEMOGLOBIN (BEAKER) (test zyxf=105) 7.2 GM/DL 13.7-17.5 HEMATOCRIT (BEAKER) (test wflt=400) 21.4 % 40.1-51.0 MEAN CORPUSCULAR VOLUME (BEAKER) (test eusq=934) 90.7 fL 79.0-92.2 MEAN CORPUSCULAR HEMOGLOBIN (BEAKER) (test 30.5 pg 25.7-32.2 dxmu=140) MEAN CORPUSCULAR HEMOGLOBIN CONC (BEAKER) (test 33.6 GM/DL 32.3-36.5 edig=508) RED CELL DISTRIBUTION WIDTH (BEAKER) (test 13.5 % 11.6-14.4 bebj=794) PLATELET COUNT (BEAKER) (test xytu=919) 185 K/CU MM 150-450 MEAN PLATELET VOLUME (BEAKER) (test vvlr=483) 10.6 fL 9.4-12.4 NUCLEATED RED BLOOD CELLS (BEAKER) (test 0 /100 WBC 0-0 erhx=214) NEUTROPHILS RELATIVE PERCENT (BEAKER) (test 60 % bwyf=408) LYMPHOCYTES RELATIVE PERCENT (BEAKER) (test 29 % gleq=720) MONOCYTES RELATIVE PERCENT (BEAKER) (test 8 % lmvi=646) EOSINOPHILS RELATIVE PERCENT (BEAKER) (test 3 % qluc=463) BASOPHILS RELATIVE PERCENT (BEAKER) (test 0 % wbic=464) NEUTROPHILS ABSOLUTE COUNT (BEAKER) (test 4.63 K/ L 1.78-5.38 wqkv=420) LYMPHOCYTES ABSOLUTE COUNT (BEAKER) (test 2.23 K/ L 1.32-3.57 jhox=260) MONOCYTES ABSOLUTE COUNT (BEAKER) (test 0.61 K/ L 0.30-0.82 wmda=063) EOSINOPHILS ABSOLUTE COUNT (BEAKER) (test 0.23 K/ L 0.04-0.54 yhko=144) BASOPHILS ABSOLUTE COUNT (BEAKER) (test 0.02 K/ L 0.01-0.08 vgpg=390) IMMATURE GRANULOCYTES-RELATIVE PERCENT (BEAKER) 1 % 0-1 (test lwyu=3509) TROPONIN [id number] 17:24:00 Test Item Value Reference Range Comments TROPONIN I (BEAKER) (test nzzp=829) 0.02 ng/mL 0.00-0.03 Troponin I (TnI) levels [...] and persistent tachyarrhythmia.CBC W/PLT COUNT & AUTO [id number] 17:00:00 Test Item Value Reference Range Comments WHITE BLOOD CELL COUNT (BEAKER) (test ciud=600) 6.6 K/ L 3.5-10.5 RED BLOOD CELL COUNT (BEAKER) (test brcs=634) 2.38 M/ L 4.63-6.08 HEMOGLOBIN (BEAKER) (test qaiy=616) 7.4 GM/DL 13.7-17.5 HEMATOCRIT (BEAKER) (test bgvi=845) 21.9 % 40.1-51.0 MEAN CORPUSCULAR VOLUME (BEAKER) (test ecyu=361) 92.0 fL 79.0-92.2 MEAN CORPUSCULAR HEMOGLOBIN (BEAKER) (test 31.1 pg 25.7-32.2 nvji=099) MEAN CORPUSCULAR HEMOGLOBIN CONC (BEAKER) (test 33.8 GM/DL 32.3-36.5 wxnj=360) RED CELL DISTRIBUTION WIDTH (BEAKER) (test 13.4 % 11.6-14.4 guxn=107) PLATELET COUNT (BEAKER) (test skxr=638) 167 K/CU MM 150-450 MEAN PLATELET VOLUME (BEAKER) (test nvwo=810) 10.1 fL 9.4-12.4 NUCLEATED RED BLOOD CELLS (BEAKER) (test 0 /100 WBC 0-0 vlgh=858) NEUTROPHILS RELATIVE PERCENT (BEAKER) (test 62 % ikvq=839) LYMPHOCYTES RELATIVE PERCENT (BEAKER) (test 27 % paze=568) MONOCYTES RELATIVE PERCENT (BEAKER) (test 7 % oyhu=352) EOSINOPHILS RELATIVE PERCENT (BEAKER) (test 3 % sine=553) BASOPHILS RELATIVE PERCENT (BEAKER) (test 0 % dzrw=340) NEUTROPHILS ABSOLUTE COUNT (BEAKER) (test 4.06 K/ L 1.78-5.38 qybe=707) LYMPHOCYTES ABSOLUTE COUNT (BEAKER) (test 1.78 K/ L 1.32-3.57 upxp=871) MONOCYTES ABSOLUTE COUNT (BEAKER) (test 0.48 K/ L 0.30-0.82 tbqc=787) EOSINOPHILS ABSOLUTE COUNT (BEAKER) (test 0.20 K/ L 0.04-0.54 brzz=133) BASOPHILS ABSOLUTE COUNT (BEAKER) (test 0.02 K/ L 0.01-0.08 knns=004) IMMATURE GRANULOCYTES-RELATIVE PERCENT (BEAKER) 1 % 0-1 (test oitc=0939) CBC W/PLT COUNT & AUTO [id number] 10:51:00 Test Item Value Reference Range Comments WHITE BLOOD CELL COUNT (BEAKER) (test fkez=921) 6.9 K/ L 3.5-10.5 RED BLOOD CELL COUNT (BEAKER) (test nbve=342) 2.52 M/ L 4.63-6.08 HEMOGLOBIN (BEAKER) (test emxz=852) 7.8 GM/DL 13.7-17.5 HEMATOCRIT (BEAKER) (test cqbj=586) 23.0 % 40.1-51.0 MEAN CORPUSCULAR VOLUME (BEAKER) (test areo=884) 91.3 fL 79.0-92.2 MEAN CORPUSCULAR HEMOGLOBIN (BEAKER) (test 31.0 pg 25.7-32.2 uosq=898) MEAN CORPUSCULAR HEMOGLOBIN CONC (BEAKER) (test 33.9 GM/DL 32.3-36.5 waya=144) RED CELL DISTRIBUTION WIDTH (BEAKER) (test 13.4 % 11.6-14.4 udrb=147) PLATELET COUNT (BEAKER) (test xycm=360) 172 K/CU MM 150-450 MEAN PLATELET VOLUME (BEAKER) (test dgzw=605) 10.7 fL 9.4-12.4 NUCLEATED RED BLOOD CELLS (BEAKER) (test 0 /100 WBC 0-0 xjge=520) NEUTROPHILS RELATIVE PERCENT (BEAKER) (test 69 % fbxv=362) LYMPHOCYTES RELATIVE PERCENT (BEAKER) (test 22 % xoxv=841) MONOCYTES RELATIVE PERCENT (BEAKER) (test 6 % axkm=019) EOSINOPHILS RELATIVE PERCENT (BEAKER) (test 2 % syuk=472) BASOPHILS RELATIVE PERCENT (BEAKER) (test 0 % fsxp=046) NEUTROPHILS ABSOLUTE COUNT (BEAKER) (test 4.77 K/ L 1.78-5.38 flti=592) LYMPHOCYTES ABSOLUTE COUNT (BEAKER) (test 1.52 K/ L 1.32-3.57 slnn=139) MONOCYTES ABSOLUTE COUNT (BEAKER) (test 0.41 K/ L 0.30-0.82 wlri=602) EOSINOPHILS ABSOLUTE COUNT (BEAKER) (test 0.15 K/ L 0.04-0.54 coxi=898) BASOPHILS ABSOLUTE COUNT (BEAKER) (test 0.02 K/ L 0.01-0.08 hmrz=484) IMMATURE GRANULOCYTES-RELATIVE PERCENT (BEAKER) 1 % 0-1 (test vvjc=4723) TISSUE [id number] 08:07:00Surgical Pathology Report Case: [id number] Authorizing Provider: Marilee Lane MD Collected: 06/27/2018 1124 Ordering Location: [place] [address] ICU Received: 06/27/2018 1528 Pathologist: Binu Magallon MD Specimen: Biopsy, Gastric, random gastric body and antrum PART A RANDOM GASTRIC BIOPSY:ANTRAL MUCOSA WITH FOCALLY ACTIVE CHRONIC GASTRITIS.OXYNTIC MUCOSA WITH MILD CHRONIC INACTIVE GASTRITIS.NEGATIVE FOR INTESTINAL METAPLASIA, DYSPLASIA, OR INVASIVE CARCINOMA.HELICOBACTER ORGANISMS ARE IDENTIFIED ON WARTHIN STARRY SPECIAL STAIN. Signing Pathologist Direct Phone Line: [phone] signed by Binu Magallon MD on 06/28/2018 at 8:07 [id number], [id number] and postop diagnosis: melenaBiopsy, gastric, random gastric [...] evaluated Immunohistochemistry technical testing was performed at [facility], Pathology Laboratory where it [...] Value Reference Range Comments IRON (BEAKER) (test dbfq=905) 57.0 ug/dL 40.0-160.0 TOTAL IRON BINDING CAPACITY (BEAKER) (test 191 ug/dL 250-450 ulul=519) IRON % SATURATION (2) (BEAKER) (test ruvd=3146) 30 % 20-55 Can do this with the next CBCPROTHROMBIN [id number] 04:34:00 Test Item Value Reference Range Comments PROTIME (BEAKER) (test fclb=111) 14.2 seconds 11.7-14.7 INR (BEAKER) (test bxlh=604) 1.2 <=5.9 RECOMMENDED COUMADIN/WARFARIN INR THERAPY RANGESSTANDARD DOSE: 2.0 - 3.0 Includes: PROPHYLAXIS forvenous thrombosis, systemic embolization; TREATMENT for venous thrombosis and/or pulmonary embolus.HIGH RISK: Target INR is 2.5-3.5 for patients with mechanical heart valves.BASIC METABOLIC [id number] 04:29: 00 Test Item Value Reference Range Comments SODIUM (BEAKER) (test 140 meq/L 136-145 hfcb=075) POTASSIUM (BEAKER) (test 4.1 meq/L 3.5-5.1 zxzw=150) CHLORIDE (BEAKER) (test 111 meq/L 98-107 hxxj=972) CO2 (BEAKER) (test 25 meq/L 22-29 zxnd=659) BLOOD UREA NITROGEN 15 mg/dL 7-21 (BEAKER) (test wxtn=878) CREATININE (BEAKER) (test 0.83 mg/dL 0.57-1.25 ealr=912) GLUCOSE RANDOM (BEAKER) 92 mg/dL 70-105 (test hxak=493) CALCIUM (BEAKER) (test 8.1 mg/dL 8.4-10.2 myld=254) EGFR (BEAKER) (test mL/min/1.73 sq m INSUFFICIENT CLINICAL DATA csud=9255) TO CALCULATE ESTIMATED GFR. CBC W/PLT COUNT & AUTO [id number] 23:50:00 Test Item Value Reference Range Comments WHITE BLOOD CELL COUNT (BEAKER) (test exgm=956) 8.0 K/ L 3.5-10.5 RED BLOOD CELL COUNT (BEAKER) (test jiuf=472) 2.41 M/ L 4.63-6.08 HEMOGLOBIN (BEAKER) (test omik=815) 7.4 GM/DL 13.7-17.5 HEMATOCRIT (BEAKER) (test caub=813) 21.6 % 40.1-51.0 MEAN CORPUSCULAR VOLUME (BEAKER) (test mhnz=046) 89.6 fL 79.0-92.2 MEAN CORPUSCULAR HEMOGLOBIN (BEAKER) (test 30.7 pg 25.7-32.2 prqk=860) MEAN CORPUSCULAR HEMOGLOBIN CONC (BEAKER) (test 34.3 GM/DL 32.3-36.5 eczr=760) RED CELL DISTRIBUTION WIDTH (BEAKER) (test 13.6 % 11.6-14.4 joko=937) PLATELET COUNT (BEAKER) (test cewq=848) 161 K/CU MM 150-450 MEAN PLATELET VOLUME (BEAKER) (test ndxv=252) 10.5 fL 9.4-12.4 NUCLEATED RED BLOOD CELLS (BEAKER) (test 0 /100 WBC 0-0 dnyx=364) NEUTROPHILS RELATIVE PERCENT (BEAKER) (test 59 % qwzd=407) LYMPHOCYTES RELATIVE PERCENT (BEAKER) (test 30 % mryq=779) MONOCYTES RELATIVE PERCENT (BEAKER) (test 8 % tdrt=788) EOSINOPHILS RELATIVE PERCENT (BEAKER) (test 3 % zqbu=577) BASOPHILS RELATIVE PERCENT (BEAKER) (test 0 % qhly=062) NEUTROPHILS ABSOLUTE COUNT (BEAKER) (test 4.69 K/ L 1.78-5.38 woff=128) LYMPHOCYTES ABSOLUTE COUNT (BEAKER) (test 2.37 K/ L 1.32-3.57 zfyg=714) MONOCYTES ABSOLUTE COUNT (BEAKER) (test 0.62 K/ L 0.30-0.82 spdi=654) EOSINOPHILS ABSOLUTE COUNT (BEAKER) (test 0.20 K/ L 0.04-0.54 mgzt=504) BASOPHILS ABSOLUTE COUNT (BEAKER) (test 0.03 K/ L 0.01-0.08 kvww=543) IMMATURE GRANULOCYTES-RELATIVE PERCENT (BEAKER) 1 % 0-1 (test occn=2480) TROPONIN [id number] 14:18:00 Test Item Value Reference Range Comments TROPONIN I (BEAKER) (test hmyv=919) 0.01 ng/mL 0.00-0.03 Troponin I (TnI) levels [...] and persistent tachyarrhythmia.CBC W/PLT COUNT & AUTO [id number] 13:21:00 Test Item Value Reference Range Comments WHITE BLOOD CELL COUNT (BEAKER) (test ocue=389) 9.5 K/ L 3.5-10.5 RED BLOOD CELL COUNT (BEAKER) (test mfjz=048) 2.57 M/ L 4.63-6.08 HEMOGLOBIN (BEAKER) (test oxih=490) 7.9 GM/DL 13.7-17.5 HEMATOCRIT (BEAKER) (test vkze=359) 23.5 % 40.1-51.0 MEAN CORPUSCULAR VOLUME (BEAKER) (test ykjl=670) 91.4 fL 79.0-92.2 MEAN CORPUSCULAR HEMOGLOBIN (BEAKER) (test 30.7 pg 25.7-32.2 bdsm=868) MEAN CORPUSCULAR HEMOGLOBIN CONC (BEAKER) (test 33.6 GM/DL 32.3-36.5 abdv=978) RED CELL DISTRIBUTION WIDTH (BEAKER) (test 13.6 % 11.6-14.4 exbx=229) PLATELET COUNT (BEAKER) (test enzg=349) 165 K/CU MM 150-450 MEAN PLATELET VOLUME (BEAKER) (test zhnq=472) 10.7 fL 9.4-12.4 NUCLEATED RED BLOOD CELLS (BEAKER) (test 0 /100 WBC 0-0 euww=201) NEUTROPHILS RELATIVE PERCENT (BEAKER) (test 66 % whai=684) LYMPHOCYTES RELATIVE PERCENT (BEAKER) (test 23 % ssge=058) MONOCYTES RELATIVE PERCENT (BEAKER) (test 8 % coky=361) EOSINOPHILS RELATIVE PERCENT (BEAKER) (test 2 % rdhg=611) BASOPHILS RELATIVE PERCENT (BEAKER) (test 0 % kora=894) NEUTROPHILS ABSOLUTE COUNT (BEAKER) (test 6.29 K/ L 1.78-5.38 qslq=745) LYMPHOCYTES ABSOLUTE COUNT (BEAKER) (test 2.23 K/ L 1.32-3.57 ntjw=107) MONOCYTES ABSOLUTE COUNT (BEAKER) (test 0.75 K/ L 0.30-0.82 zqoz=399) EOSINOPHILS ABSOLUTE COUNT (BEAKER) (test 0.17 K/ L 0.04-0.54 vqqw=708) BASOPHILS ABSOLUTE COUNT (BEAKER) (test 0.03 K/ L 0.01-0.08 mjxq=040) IMMATURE GRANULOCYTES-RELATIVE PERCENT (BEAKER) 1 % 0-1 (test yohu=8288) IRON, TIBC, % SAT. (WITHOUT FERRITIN)2018-06-27 08:58:00 Test Item Value Reference Range Comments IRON (BEAKER) (test dzxo=126) 73.0 ug/dL 40.0-160.0 TOTAL IRON BINDING CAPACITY (BEAKER) (test 189 ug/dL 250-450 lipj=079) IRON % SATURATION (2) (BEAKER) (test fvhq=9711) 39 % 20-55 Can do this with the next cbc checkCan do this with the next [id number] 07:30:00 Test Item Value Reference Range Comments FERRITIN (BEAKER) (test agxl=185) 46 ng/mL 5-275 Can do this with the next cbc checkCan do this with the next CBCTROPONIN [id number] 03:49:00 Test Item Value Reference Range Comments TROPONIN I (BEAKER) (test lwsj=255) < ng/mL 0.00-0.03 Troponin I (TnI) levels [...] acidosis, acute neurological disease, and persistent tachyarrhythmia.RETICULOCYTE [id number] 03:26:00 Test Item Value Reference Range Comments RETICULOCYTE COUNT PCT (BEAKER) (test iqmm=286) 2.8 % 0.5-1.8 RAD, CHEST, 1 VIEW, NON [id number] 03:04:00Reason for exam:->gibShould this be performed at [...] MDReport Verified Date/Time: 06/27/2018 03:04:43 Reading Location: [address] Reading Room COMPREHENSIVE METABOLIC [id number] 02:57:00 Test Item Value Reference Range Comments TOTAL PROTEIN (BEAKER) 5.1 gm/dL 6.0-8.3 (test jznr=546) ALBUMIN (BEAKER) (test 3.1 g/dL 3.5-5.0 iwqk=8334) ALKALINE PHOSPHATASE 64 U/L 40-150 (BEAKER) (test hyzy=337) BILIRUBIN TOTAL (BEAKER) 0.2 mg/dL 0.2-1.2 (test htny=786) SODIUM (BEAKER) (test 139 meq/L 136-145 aqhl=624) POTASSIUM (BEAKER) (test 4.0 meq/L 3.5-5.1 vvks=957) CHLORIDE (BEAKER) (test 113 meq/L 98-107 sfzk=532) CO2 (BEAKER) (test 23 meq/L 22-29 epiq=310) BLOOD UREA NITROGEN 31 mg/dL 7-21 (BEAKER) (test daar=227) CREATININE (BEAKER) (test 0.75 mg/dL 0.57-1.25 prlx=133) GLUCOSE RANDOM (BEAKER) 118 mg/dL 70-105 (test kchm=951) CALCIUM (BEAKER) (test 7.8 mg/dL 8.4-10.2 rlmb=065) AST (SGOT) (BEAKER) (test 12 U/L 5-34 wfye=249) ALT (SGPT) (BEAKER) (test 14 U/L 6-55 ocuk=308) EGFR (BEAKER) (test mL/min/1.73 sq m INSUFFICIENT CLINICAL DATA azwh=6791) TO CALCULATE ESTIMATED GFR. [id number] 02:43:00 Test Item Value Reference Range Comments PROTIME (BEAKER) (test ktua=169) 15.1 seconds 11.7-14.7 INR (BEAKER) (test ebkv=643) 1.3 <=5.9 PARTIAL THROMBOPLASTIN TIME (BEAKER) (test 31.2 seconds 22.5-36.0 jvnt=475) RECOMMENDED COUMADIN/WARFARIN INR THERAPY RANGESSTANDARD DOSE: 2.0 - 3.0 Includes: PROPHYLAXIS forvenous thrombosis, systemic embolization; TREATMENT for venous thrombosis and/or pulmonary embolus.HIGH RISK: Target INR is 2.5-3.5 for patients with mechanical heart valves.PROTHROMBIN TIME/[id number] 02:42: 00 Test Item Value Reference Range Comments PROTIME (BEAKER) (test acxe=356) 15.1 seconds 11.7-14.7 INR (BEAKER) (test juye=094) 1.3 <=5.9 RECOMMENDED COUMADIN/WARFARIN INR THERAPY RANGESSTANDARD DOSE: 2.0 - 3.0 Includes: PROPHYLAXIS forvenous thrombosis, systemic embolization; TREATMENT for venous thrombosis and/or pulmonary embolus.HIGH RISK: Target INR is 2.5-3.5 for patients with mechanical heart valves.LACTIC ACID, [id number] 02:39:00 Test Item Value Reference Range Comments LACTATE BLOOD VENOUS (2) (BEAKER) (test 0.9 mmol/L 0.5-2.2 lsjf=8664) CBC W/PLT COUNT & AUTO [id number] 02:25:00 Test Item Value Reference Range Comments WHITE BLOOD CELL COUNT (BEAKER) (test jlfp=794) 9.7 K/ L 3.5-10.5 RED BLOOD CELL COUNT (BEAKER) (test msbc=077) 2.53 M/ L 4.63-6.08 HEMOGLOBIN (BEAKER) (test hhxy=577) 7.7 GM/DL 13.7-17.5 HEMATOCRIT (BEAKER) (test zdcm=424) 22.8 % 40.1-51.0 MEAN CORPUSCULAR VOLUME (BEAKER) (test yxun=700) 90.1 fL 79.0-92.2 MEAN CORPUSCULAR HEMOGLOBIN (BEAKER) (test 30.4 pg 25.7-32.2 vzgu=935) MEAN CORPUSCULAR HEMOGLOBIN CONC (BEAKER) (test 33.8 GM/DL 32.3-36.5 wolk=967) RED CELL DISTRIBUTION WIDTH (BEAKER) (test 13.2 % 11.6-14.4 epgv=794) PLATELET COUNT (BEAKER) (test azpj=938) 170 K/CU MM 150-450 MEAN PLATELET VOLUME (BEAKER) (test mobz=969) 10.7 fL 9.4-12.4 NUCLEATED RED BLOOD CELLS (BEAKER) (test 0 /100 WBC 0-0 jgwu=988) NEUTROPHILS RELATIVE PERCENT (BEAKER) (test 63 % iexb=943) LYMPHOCYTES RELATIVE PERCENT (BEAKER) (test 28 % wujv=813) MONOCYTES RELATIVE PERCENT (BEAKER) (test 7 % sbql=937) EOSINOPHILS RELATIVE PERCENT (BEAKER) (test 2 % wjmo=035) BASOPHILS RELATIVE PERCENT (BEAKER) (test 0 % yrkp=880) NEUTROPHILS ABSOLUTE COUNT (BEAKER) (test 6.07 K/ L 1.78-5.38 ateu=739) LYMPHOCYTES ABSOLUTE COUNT (BEAKER) (test 2.75 K/ L 1.32-3.57 ybzn=787) MONOCYTES ABSOLUTE COUNT (BEAKER) (test 0.64 K/ L 0.30-0.82 qrfl=128) EOSINOPHILS ABSOLUTE COUNT (BEAKER) (test 0.18 K/ L 0.04-0.54 htoi=884) BASOPHILS ABSOLUTE COUNT (BEAKER) (test 0.02 K/ L 0.01-0.08 clii=323) IMMATURE GRANULOCYTES-RELATIVE PERCENT (BEAKER) 0 % 0-1 (test hngc=0072)
--- NOTE | 2019-02-24 01:46 | DS ---
Date of Discharge: 12/12/2018 Hospital Course: Patient was admitted to the hospital on 12/10 for evaluation of melena and generali zed weakness and history of PUD. During his hospital stay, he once again underwent the EGD, at which time findings showed multiple erosions in the antrum and a small hiatal hernia, the former probable cause of the melena. His blood counts remained relatively stable, although low during his hospital s ant and he was placed on iron and Protonix and dietary control. He felt well enough and was stable e nough to be discharged in fair condition on 12/12 to follow up with myself and a radiagraph operator. Diagnoses: Melena secondary to multiple gastric erosions; hypertension, controlled. HR/MODL Voice ID: [id number] Report ID: [id number]
--- NOTE | 2019-02-24 09:24 | HP ---
Date of Admission: 12/10/2018 Chief Complaint: Generalized weakness, black stools. History Of Present Illness: Patient presented to the emergency room with the above outlined symptoms , stated had been going on for a couple of days prior to being in the emergency room. Patient had a somewhat similar situation approximately 6 months ago. At that time, he was transferred to [facility] here he required blood transfusions and was treated for what he said was PUD. States he has been doi ng quite well until the last few days. However, he also states he has had a fair amount of alcohol i ntake over the past few weeks and then it could be a contributing factor. In any event, he was admit maris[facility] for further treatment and evaluation. Past Medical History: As above. Patient also has a history of hypertension, controlled on medicatio n and hyperlipidemia. Family History: Noncontributory. Social History: Patient does have some alcohol intake. Physical Examination: General: Patient is a well-built, middle-aged male, a pale looking, but no acute distress. Vital Signs: Stable vital signs. Head and Neck: Normocephalic. Pupils equal and reactive to light and accommodation. Fundi negative . Trachea midline. Thyroid not palpable. ENT: Negative. Chest: Clear to P and A. Cardiovascular: PMI midclavicular line. Heart: Sounds normal. Peripheral pulses present and equal bilaterally. Abdomen: Minimal tenderness in midepigastric and periumbilical area. No guarding, rebound, tenderne ss, or rigidity. Bowel sounds hyperactive. Extremities: Good tone and movement bilaterally. Reflexes physiologic. Rectal: Deferred. Impression: Acute exacerbation of peptic ulcer disease with melena; hypertension, controlled. Plan: Patient will be admitted, seen by stores clerk for probable EGD and depending on his blo od count, may require further transfusions. HR/MODL Voice ID: [id number]
--- NOTE | 2019-03-03 19:00 | DS ---
Date of Discharge: 12/12/2018 Hospital Course: Patient was admitted to the hospital on 12/10, presented to the emergency room with shortness of breath and feeling weak. Blood tests revealed marked anemia secondary to what was a makenzie pected another GI bleed as the patient had it one earlier, which required procedures. He was stabili zed. He underwent an EGD by the environmental services technician, at which time, revealed multiple erosions in the antrum. He was placed on acid suppression therapy, dietary control. Once he was stabilized, he fel t well enough to be discharged on oral medication. His appetite improved. He was sent home on Sharlene nix and to follow up his hemoglobin in a couple of days with me and in 6 weeks with a gastroenterolog ist. Final Diagnoses: Acute gastrointestinal bleed secondary to multiple gastric erosions; hypertension, controlled; hyperlipidemia, controlled; coronary artery disease by history. HR/MODL Voice ID: [id number] Report ID: [id number]
--- NOTE | 2019-03-03 19:00 | HP ---
Date of Admission: 12/10/2018 Entrance Complaint: Weakness, short of breath. History Of Present Illness: Patient presented to the emergency room with the above outlined symptoms . Patient dates his history back approximately 6 months from having acute GI bleed and he was sent t [facility] where they did a procedure as there was no offal separator available at that time in our hospital. Since that time, he said he has been fine. He has had no symptoms and then this noticeab le change came rather quickly and he was riding his bike. He had some chest discomfort, shortness of breath, and that is when he presented to the emergency room. Past Medical History: Other than the above, patient also has a history of myocardial infarction and kidney stones, hypertension, and hyperlipidemia, all which have been controlled on medication. Social History: Patient does have some alcohol intake and smokes occasionally. Family History: Noncontributory. Physical Examination: General: Patient is a thin, middle-aged male, in no acute distress. Vital Signs: Stable vital signs. Head and Neck: Normocephalic. Pupils equal and reactive to light and accommodation. Fundi negative . Trachea midline. Thyroid not palpable. ENT: Negative. Chest: Clear to P and A. Cardiovascular: PMI midclavicular line. Heart: Sounds normal. Peripheral pulses present and equal bilaterally. Abdomen: Minimal tenderness in midepigastric area. No guarding, rebound, tenderness, or rigidity. Bowel sounds hypoactive. Extremities: Slightly dehydrated. Good tone and movement bilaterally. Reflexes physiologic. Rectal: Negative. Impression: Acute gastrointestinal bleed; hypertension, controlled; coronary artery disease by histo ry. Plan: Patient will be admitted. Blood counts will be done. A cardiac workup will also be considere d. Depending on the results, further treatment may be indicated. HR/MODL Voice ID: [id number]
== END 2018-12-12 19:00 | disposition home or self-care (01) | DRG 378 ==
LOC: ER 11:18 → ERHOLD 16:29 → 2ND 17:30
PROVIDERS: ADMIT Family Medicine; ATTEND Family Medicine
PROC: 0DB68ZX Excision of Stomach, Via Natural or Artificial Opening Endoscopic, Diagnostic (ICD-10-PCS; principal; 2018-12-10 17:30)
DX: K25.0 Acute gastric ulcer with hemorrhage (principal); D62 Acute posthemorrhagic anemia; I10 Essential (primary) hypertension; E78.5 Hyperlipidemia, unspecified; I25.10 Atherosclerotic heart disease of native coronary artery without angina pectoris; K44.9 Diaphragmatic hernia without obstruction or gangrene; F17.200 Nicotine dependence, unspecified, uncomplicated; I25.2 Old myocardial infarction
CPT/HCPCS: 36415; 36430; 74177; 74250; 80048; 80076; 83690; 85014; 85018; 85025; 86850; 86900; 86901; 88305; 88312; 96361; 96365; 99285; C9113; J0744; J2704; J7030; J7120; P9016; Q9967

== ENCOUNTER 2019-08-04 16:33 | Emergency (ER) | payer BC, SELFPAY ==
[2019-08-04] MEDS ORDERED: MORPHINE 4 MG/ML SYR ONE (17:06)
[2019-08-04] MEDS ORDERED: ONDANSETRON 4 MG/2 ML VIAL ONE (17:07)
[2019-08-04] MEDS ORDERED: NA CHLORIDE 0.9% 1,000 ML ONE (17:07)
[2019-08-04 17:15] LABS: Absolute Lymphocytes (CBC) 2.5 K/uL (0.7-4.9); Basophils % 0.4 % (0-1.3); Hematocrit 43.8 % (39.6-49.0); Lymphocytes % 18.5 % (15.3-44.8)
--- OUTSIDE RECORDS SUMMARY | 2019-08-04 17:25 | XMS REPORT | Clinical Summary ---
:1955 Author Organization [facility] Address [address] [place] [id number] Care Team Providers Name Role Phone Unavailable Primary Care Provider Unavailable Allergies No Known Allergies Medications Medication Sig Dispensed Refills Start Date End Date Status ezetimibe (ZETIA) 10 Take 10 mg by 0 Active mg mouth daily. tabletIndications: excessive fat in the blood aspirin 81 MG EC Take 81 mg by 0 Active tabletIndications: mouth daily. treatment to prevent a heart attack, blood clot prevention following percutaneous coronary intervention niacin (SLO-NIACIN) Take 500 mg by 0 Active 500 mg tablet mouth 2 (two) times daily with breakfast and dinner. losartan (COZAAR) 50 Take 50 mg by 0 Active MG tablet mouth daily. simvastatin (ZOCOR) Take 1 tablet 0 07/16/2018 Active 40 MG tablet (40 mg total) by mouth nightly. pantoprazole Take 1 tablet 60 tablet 2 07/01/2018 09/29/2018 E xpired (PROTONIX) 40 MG (40 mg total) by tablet mouth 2 (two) times daily for 90 days. plet-[id number]-f Take 1 tablet by 120 tablet 0 07/01/2018 10/29/2018 inerals mouth daily for (THERAGRAN-M) 9 mg 120 days. iron-400 mcg Tab tablet Active Problems Problem Noted Date Duodenal ulcer with hemorrhage but without obstruction 06/28/2018 Anemia, secondary 06/28/2018 Hiatal hernia 06/28/2018 Melena 06/28/2018 Hyperlipidemia 06/28/2018 GIB (gastrointestinal bleeding) 06/27/2018 Coronary artery disease involving [place] coronary [place] of [place] heart 06/27/2018 without angina pectoris Family History Medical History Relation Name Comments Heart disease Father Diabetes Mother Hypertension Mother Relation Name Status Comments Father Mother Social History Tobacco Use Types Packs/Day Years Used Date Former Smoker Smokeless Tobacco: Former User Comments: PAST SMOKER (SMOKED FOR 3 YEAR S2013 - [id number]) Alcohol Use Drinks/Week oz/Week Comments Yes 5 Cans of beer 3.0 ON OCCASION WEEK END Sex Assigned at Date Recorded Not on file Job Start Date Occupation Industry Not on file Not on file Not on file Travel History Travel Start Travel End No recent travel history available. Last Filed Vital Signs Not on file Plan of Treatment Not on file Results Not on fileafter 08/03/2018 Insurance Payer Benefit Plan / Subscriber ID Type Phone Address Group BLUE CROSS/BLUE BCBS PPO POS EPO xxxxxxxxxxxx PPO [phone] [address] [place] [address] Advance Directives For more information, please contact:[address] [phone] Code Status Date Activated Date Inactivated Comments Full Code 06/27/2018 2:40 AM 07/01/2018 1:03 PM This code status was determined by: Patient
--- OUTSIDE RECORDS SUMMARY | 2019-08-04 17:25 | XMS REPORT | Continuity of Care Document ---
:1955 Author Organization [facility] t Address [facility] [place] [address] Care Team Providers Name Role Phone LEANNE FRANCO Attending Clinician Unavailable ROBERT FRANCO Admitting Clinician Unavailable Problems Condition Condition Condition Status Onset Resolution Last Treating Co mments Source Name Details Category Date Date Treatment Clinician Date 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[facility] k[facility] - hemorrhage hemorrhage 00:00: Me dical but but 00 Center without without obstructio obstructio n n Anemia, Anemia, Disease Active [facility] secondary secondary [facility]-24 [facility] - 00:[facility]: Medical 00 [place] Hiatal Hiatal Disease Active [facility] hernia [facility]: [facility] 00 [place] Melena Melena Disease Active [facility] Medical 00 [place] Hyperlipid Hyperlipid Disease Active [facility] emia 5-24 [facility] - 00:[facility]: Medical 00 Center GIB GIB Disease Active 2019- [facility] (gastroint (gastroint 5-23 Selina kes - estinal estinal 00:00: Medical bleeding) bleeding) 00 Cent er Coronary Coronary Disease Active 2018[facility] - disease disease 00:00: Medical involving involving 00 [facility] [place] coronary coronary artery of artery of [place] heart heart without without angina angina pectoris pectoris Allergies, Adverse Reactions, Alerts This patient has no known allergies or adverse reactions. Family History Family Member Diagnosis Comments Start Date Stop Date Source Natural father Heart disease [facility] Natural mother Diabetes [facility] Natural mother Hypertension [facility] Social History Social Habit Start Date Stop Date Quantity Comments Source Sex Assigned At [facility] Tobacco Comment 2018-06-28 2018-06-28 PAST SMOKER [facility] - 00:00:00 00:00:00 (SMOKED FOR 3 Medical [facility] [id number] - [id number]) Alcohol Comment 2018-06-28 2018-06-28 ON OCCASION [facility] - 00:00:00 00:00:[facility] Smoking Status Start Date Stop Date Source Former smoker 2018-06-28 00:00:00 2018-06-28 00:00:00 [facility] Medications Ordered Filled Start Stop Current Ordering Indication Dosage Frequency Signature Comments Components Source Medication Medication Date Date Medication? Clinician (SIG) Name Name simvastatin Yes 40mg QD Take [address] [facility] [address] (ZOCOR) 40 6-11 tablet (40 Dorcas es - MG tablet 00:00: mg total) Med ical 00 by mouth Center nightly. iron-multiv 2019- No 1{tbl} QD Take [address] itamins-min -01 11-24 tablet by ministerio shauna 00:00: 23:59 mouth Medical (THERAGRAN- 00 :00 daily for [facility] M) 9 mg 120 days. iron-400 mcg Tab tablet pantoprazol 2019- No 40mg Q.5D Take [address] e - 08-25 tablet (40 [facility] - (PROTONIX) 00:00: 23:59 mg total) M edical 40 MG 00 :00 by mouth 2 Center tablet (two) times daily for 90 days. losartan Yes 50mg QD Take [address] [facility] (COZAAR) 50 5-24 by mouth [facility] - MG tablet 21:42: daily. Medica l 07 Center aspirin 81 2018- Yes blood clot 81mg QD Take [address] MG EC 5-24 prevention by mouth [facility] - tablet 21:38: following daily. Medi katie 17 percutaneou Center s coronary interventio n niacin 2018- Yes 500mg Take [address] [facility] (SLO-NIACIN 5-24 mg by [facility] - ) 500 mg 21:38: mouth 2 Medica l tablet 17 (two) Center times daily with breakfast and dinner. ezetimibe 2019- Yes excessive 10mg QD Take [address] (ZETIA) 10 5-24 fat in the by mouth [facility] - mg tablet 21:38: blood daily. Medic al 16 Center Procedures This patient has no known procedures. Results Test Description Test Time Test Comments Results Result Comments Source CBC W/PLT COUNT & AUTO DIFFERENTIAL 2018-07-01 08:52:00 Test Item Value Reference Range Interpretation Comme nts WHITE BLOOD CELL COUNT (BEAKER) (test code = 775) 10.1 K/ L 3.5- 10.5 RED BLOOD CELL COUNT (BEAKER) (test code = 761) 3.22 M/ L 4.63-6 .08 L HEMOGLOBIN (BEAKER) (test code = 410) 9.8 GM/DL 13.7-17.5 L HEMATOCRIT (BEAKER) (test code = 411) 29.5 % 40.1-51.0 L MEAN CORPUSCULAR VOLUME (BEAKER) (test code = 753) 91.6 fL 79. 0-92.2 MEAN CORPUSCULAR HEMOGLOBIN (BEAKER) (test code = 751) 30.4 pg 25.7-32.2 MEAN CORPUSCULAR HEMOGLOBIN CONC (BEAKER) (test code = 752) 33.2 GM/DL 32.3-36.5 RED CELL DISTRIBUTION WIDTH (BEAKER) (test code = 412) 15.3 % 11.6-14.4 H PLATELET COUNT (BEAKER) (test code = 756) 241 K/CU MM 150-450 MEAN PLATELET VOLUME (BEAKER) (test code = 754) 10.3 fL 9.4-12 .4 NUCLEATED RED BLOOD CELLS (BEAKER) (test code = 413) 1 /100 WBC 0 -0 H NEUTROPHILS RELATIVE PERCENT (BEAKER) (test code = 429) 69 % LYMPHOCYTES RELATIVE PERCENT (BEAKER) (test code = 430) 20 % MONOCYTES RELATIVE PERCENT (BEAKER) (test code = 431) 6 % EOSINOPHILS RELATIVE PERCENT (BEAKER) (test code = 432) 3 % BASOPHILS RELATIVE PERCENT (BEAKER) (test code = 437) 0 % NEUTROPHILS ABSOLUTE COUNT (BEAKER) (test code = 670) 6.99 K/ L 1.78-5.38 H LYMPHOCYTES ABSOLUTE COUNT (BEAKER) (test code = 414) 1.98 K/ L 1.32-3.57 MONOCYTES ABSOLUTE COUNT (BEAKER) (test code = 415) 0.65 K/ L 0. 30-0.82 EOSINOPHILS ABSOLUTE COUNT (BEAKER) (test code = 416) 0.27 K/ L 0.04-0.54 BASOPHILS ABSOLUTE COUNT (BEAKER) (test code = 417) 0.04 K/ L 0. 01-0.08 IMMATURE GRANULOCYTES-RELATIVE PERCENT (BEAKER) (test code 2 % 0-1 H = 2801) BASIC METABOLIC [id number] 06:41:00 Test Item Value Reference Range Interpretation Comments SODIUM (BEAKER) 143 meq/L 136-145 (test code = 381) POTASSIUM (BEAKER) 3.7 meq/L 3.5-5.1 (test code = 379) CHLORIDE (BEAKER) 112 meq/L 98-107 H (test code = 382) CO2 (BEAKER) (test 26 meq/L 22-29 code = 355) BLOOD UREA NITROGEN 11 mg/dL 7-21 (BEAKER) (test code = 354) CREATININE (BEAKER) 0.79 mg/dL 0.57-1.25 (test code = 358) GLUCOSE RANDOM 91 mg/dL 70-105 (BEAKER) (test code = 652) CALCIUM (BEAKER) 8.1 mg/dL 8.4-10.2 L (test code = 697) EGFR (BEAKER) (test mL/min/1.73 INSUFFIC IENT CLINICAL code = 1092) sq m DATA TO CALCULA TE ESTIMATED GFR. CBC W/PLT COUNT & AUTO [id number] 20:31:00 Test Item Value Reference Range Interpretation Comments WHITE BLOOD CELL COUNT (BEAKER) 9.2 K/ L 3.5-10.5 (test code = 775) RED BLOOD CELL COUNT (BEAKER) 3.01 M/ L 4.63-6.08 L (test code = 761) HEMOGLOBIN (BEAKER) (test code = 9.5 GM/DL 13.7-17.5 L 410) HEMATOCRIT (BEAKER) (test code = 27.3 % 40.1-51.0 L 411) MEAN CORPUSCULAR VOLUME (BEAKER) 90.7 fL 79.0-92.2 (test code = 753) MEAN CORPUSCULAR HEMOGLOBIN 31.6 pg 25.7-32.2 (BEAKER) (test code = 751) MEAN CORPUSCULAR HEMOGLOBIN CONC 34.8 GM/DL 32.3-36.5 (BEAKER) (test code = 752) RED CELL DISTRIBUTION WIDTH 14.7 % 11.6-14.4 H (BEAKER) (test code = 412) PLATELET COUNT (BEAKER) (test 242 K/CU MM 150-450 code = 756) MEAN PLATELET VOLUME (BEAKER) 10.4 fL 9.4-12.4 (test code = 754) NUCLEATED RED BLOOD CELLS 1 /100 WBC 0-0 H (BEAKER) (test code = 413) NEUTROPHILS RELATIVE PERCENT 65 % (BEAKER) (test code = 429) LYMPHOCYTES RELATIVE PERCENT 20 % (BEAKER) (test code = 430) MONOCYTES RELATIVE PERCENT 9 % (BEAKER) (test code = 431) EOSINOPHILS RELATIVE PERCENT 3 % (BEAKER) (test code = 432) BASOPHILS RELATIVE PERCENT 0 % (BEAKER) (test code = 437) NEUTROPHILS ABSOLUTE COUNT 6.00 K/ L 1.78-5.38 H (BEAKER) (test code = 670) LYMPHOCYTES ABSOLUTE COUNT 1.84 K/ L 1.32-3.57 (BEAKER) (test code = 414) MONOCYTES ABSOLUTE COUNT (BEAKER) 0.81 K/ L 0.30-0.82 (test code = 415) EOSINOPHILS ABSOLUTE COUNT 0.27 K/ L 0.04-0.54 (BEAKER) (test code = 416) BASOPHILS ABSOLUTE COUNT (BEAKER) 0.04 K/ L 0.01-0.08 (test code = 417) IMMATURE GRANULOCYTES-RELATIVE 3 % 0-1 H PERCENT (BEAKER) (test code = 2801) CBC W/PLT COUNT & AUTO [id number] 09:40:00 Test Item Value Reference Range Interpretation Comments WHITE BLOOD CELL COUNT (BEAKER) 8.5 K/ L 3.5-10.5 (test code = 775) RED BLOOD CELL COUNT (BEAKER) 2.57 M/ L 4.63-6.08 L (test code = 761) HEMOGLOBIN (BEAKER) (test code = 8.0 GM/DL 13.7-17.5 L 410) HEMATOCRIT (BEAKER) (test code = 24.0 % 40.1-51.0 L 411) MEAN CORPUSCULAR VOLUME (BEAKER) 93.4 fL 79.0-92.2 H (test code = 753) MEAN CORPUSCULAR HEMOGLOBIN 31.1 pg 25.7-32.2 (BEAKER) (test code = 751) MEAN CORPUSCULAR HEMOGLOBIN CONC 33.3 GM/DL 32.3-36.5 (BEAKER) (test code = 752) RED CELL DISTRIBUTION WIDTH 14.3 % 11.6-14.4 (BEAKER) (test code = 412) PLATELET COUNT (BEAKER) (test 228 K/CU MM 150-450 code = 756) MEAN PLATELET VOLUME (BEAKER) 10.9 fL 9.4-12.4 (test code = 754) NUCLEATED RED BLOOD CELLS 1 /100 WBC 0-0 H (BEAKER) (test code = 413) NEUTROPHILS RELATIVE PERCENT 71 % (BEAKER) (test code = 429) LYMPHOCYTES RELATIVE PERCENT 20 % (BEAKER) (test code = 430) MONOCYTES RELATIVE PERCENT 5 % (BEAKER) (test code = 431) EOSINOPHILS RELATIVE PERCENT 2 % (BEAKER) (test code = 432) BASOPHILS RELATIVE PERCENT 0 % (BEAKER) (test code = 437) NEUTROPHILS ABSOLUTE COUNT 6.07 K/ L 1.78-5.38 H (BEAKER) (test code = 670) LYMPHOCYTES ABSOLUTE COUNT 1.65 K/ L 1.32-3.57 (BEAKER) (test code = 414) MONOCYTES ABSOLUTE COUNT (BEAKER) 0.42 K/ L 0.30-0.82 (test code = 415) EOSINOPHILS ABSOLUTE COUNT 0.20 K/ L 0.04-0.54 (BEAKER) (test code = 416) BASOPHILS ABSOLUTE COUNT (BEAKER) 0.03 K/ L 0.01-0.08 (test code = 417) IMMATURE GRANULOCYTES-RELATIVE 1 % 0-1 PERCENT (BEAKER) (test code = 2801) BASIC METABOLIC [id number] 06:50:00 Test Item Value Reference Range Interpretation Comments SODIUM (BEAKER) 139 meq/L 136-145 (test code = 381) POTASSIUM (BEAKER) 3.9 meq/L 3.5-5.1 (test code = 379) CHLORIDE (BEAKER) 109 meq/L 98-107 H (test code = 382) CO2 (BEAKER) (test 23 meq/L 22-29 code = 355) BLOOD UREA NITROGEN 14 mg/dL 7-21 (BEAKER) (test code = 354) CREATININE (BEAKER) 0.77 mg/dL 0.57-1.25 (test code = 358) GLUCOSE RANDOM 88 mg/dL 70-105 (BEAKER) (test code = 652) CALCIUM (BEAKER) 8.0 mg/dL 8.4-10.2 L (test code = 697) EGFR (BEAKER) (test mL/min/1.73 INSUFFIC IENT CLINICAL code = 1092) sq m DATA TO CALCULA TE ESTIMATED GFR. CBC W/PLT COUNT & AUTO [id number] 23:23:00 Test Item Value Reference Range Interpretation Comments WHITE BLOOD CELL COUNT (BEAKER) 8.5 K/ L 3.5-10.5 (test code = 775) RED BLOOD CELL COUNT (BEAKER) 2.29 M/ L 4.63-6.08 L (test code = 761) HEMOGLOBIN (BEAKER) (test code = 7.0 GM/DL 13.7-17.5 L 410) HEMATOCRIT (BEAKER) (test code = 21.0 % 40.1-51.0 L 411) MEAN CORPUSCULAR VOLUME (BEAKER) 91.7 fL 79.0-92.2 (test code = 753) MEAN CORPUSCULAR HEMOGLOBIN 30.6 pg 25.7-32.2 (BEAKER) (test code = 751) MEAN CORPUSCULAR HEMOGLOBIN CONC 33.3 GM/DL 32.3-36.5 (BEAKER) (test code = 752) RED CELL DISTRIBUTION WIDTH 14.0 % 11.6-14.4 (BEAKER) (test code = 412) PLATELET COUNT (BEAKER) (test 210 K/CU MM 150-450 code = 756) MEAN PLATELET VOLUME (BEAKER) 10.8 fL 9.4-12.4 (test code = 754) NUCLEATED RED BLOOD CELLS 0 /100 WBC 0-0 (BEAKER) (test code = 413) NEUTROPHILS RELATIVE PERCENT 65 % (BEAKER) (test code = 429) LYMPHOCYTES RELATIVE PERCENT 23 % (BEAKER) (test code = 430) MONOCYTES RELATIVE PERCENT 8 % (BEAKER) (test code = 431) EOSINOPHILS RELATIVE PERCENT 3 % (BEAKER) (test code = 432) BASOPHILS RELATIVE PERCENT 0 % (BEAKER) (test code = 437) NEUTROPHILS ABSOLUTE COUNT 5.52 K/ L 1.78-5.38 H (BEAKER) (test code = 670) LYMPHOCYTES ABSOLUTE COUNT 1.94 K/ L 1.32-3.57 (BEAKER) (test code = 414) MONOCYTES ABSOLUTE COUNT (BEAKER) 0.65 K/ L 0.30-0.82 (test code = 415) EOSINOPHILS ABSOLUTE COUNT 0.22 K/ L 0.04-0.54 (BEAKER) (test code = 416) BASOPHILS ABSOLUTE COUNT (BEAKER) 0.02 K/ L 0.01-0.08 (test code = 417) IMMATURE GRANULOCYTES-RELATIVE 1 % 0-1 PERCENT (BEAKER) (test code = 2801) CBC W/PLT COUNT & AUTO [id number] 10:14:00 Test Item Value Reference Range Interpretation Comments WHITE BLOOD CELL COUNT (BEAKER) 7.1 K/ L 3.5-10.5 (test code = 775) RED BLOOD CELL COUNT (BEAKER) 2.59 M/ L 4.63-6.08 L (test code = 761) HEMOGLOBIN (BEAKER) (test code = 7.7 GM/DL 13.7-17.5 L 410) HEMATOCRIT (BEAKER) (test code = 23.7 % 40.1-51.0 L 411) MEAN CORPUSCULAR VOLUME (BEAKER) 91.5 fL 79.0-92.2 (test code = 753) MEAN CORPUSCULAR HEMOGLOBIN 29.7 pg 25.7-32.2 (BEAKER) (test code = 751) MEAN CORPUSCULAR HEMOGLOBIN CONC 32.5 GM/DL 32.3-36.5 (BEAKER) (test code = 752) RED CELL DISTRIBUTION WIDTH 13.8 % 11.6-14.4 (BEAKER) (test code = 412) PLATELET COUNT (BEAKER) (test 202 K/CU MM 150-450 code = 756) MEAN PLATELET VOLUME (BEAKER) 10.5 fL 9.4-12.4 (test code = 754) NUCLEATED RED BLOOD CELLS 0 /100 WBC 0-0 (BEAKER) (test code = 413) NEUTROPHILS RELATIVE PERCENT 69 % (BEAKER) (test code = 429) LYMPHOCYTES RELATIVE PERCENT 21 % (BEAKER) (test code = 430) MONOCYTES RELATIVE PERCENT 6 % (BEAKER) (test code = 431) EOSINOPHILS RELATIVE PERCENT 3 % (BEAKER) (test code = 432) BASOPHILS RELATIVE PERCENT 0 % (BEAKER) (test code = 437) NEUTROPHILS ABSOLUTE COUNT 4.88 K/ L 1.78-5.38 (BEAKER) (test code = 670) LYMPHOCYTES ABSOLUTE COUNT 1.52 K/ L 1.32-3.57 (BEAKER) (test code = 414) MONOCYTES ABSOLUTE COUNT (BEAKER) 0.42 K/ L 0.30-0.82 (test code = 415) EOSINOPHILS ABSOLUTE COUNT 0.19 K/ L 0.04-0.54 (BEAKER) (test code = 416) BASOPHILS ABSOLUTE COUNT (BEAKER) 0.02 K/ L 0.01-0.08 (test code = 417) IMMATURE GRANULOCYTES-RELATIVE 1 % 0-1 PERCENT (BEAKER) (test code = 2801) BASIC METABOLIC [id number] 06:07:00 Test Item Value Reference Range Interpretation Comments SODIUM (BEAKER) 138 meq/L 136-145 (test code = 381) POTASSIUM (BEAKER) 3.7 meq/L 3.5-5.1 (test code = 379) CHLORIDE (BEAKER) 108 meq/L 98-107 H (test code = 382) CO2 (BEAKER) (test 26 meq/L 22-29 code = 355) BLOOD UREA NITROGEN 17 mg/dL 7-21 (BEAKER) (test code = 354) CREATININE (BEAKER) 0.81 mg/dL 0.57-1.25 (test code = 358) GLUCOSE RANDOM 100 mg/dL 70-105 (BEAKER) (test code = 652) CALCIUM (BEAKER) 7.9 mg/dL 8.4-10.2 L (test code = 697) EGFR (BEAKER) (test mL/min/1.73 INSUFFIC IENT CLINICAL code = 1092) sq m DATA TO CALCULA TE ESTIMATED GFR. [id number] 05:59:00 Test Item Value Reference Range Interpretation Comments MAGNESIUM (BEAKER) (test code = 1.8 mg/dL 1.6-2.6 627) IRON, TIBC, % SAT. (WITHOUT FERRITIN)2018-06-29 05:27:00 Test Item Value Reference Range Interpretation Comments IRON (BEAKER) (test code = 547) 34.0 ug/dL 40.0-160.0 L TOTAL IRON BINDING CAPACITY 196 ug/dL 250-450 L (BEAKER) (test code = 769) IRON % SATURATION (2) (BEAKER) 17 % 20-55 L (test code = 2590) Can do this with the next CBCPROTHROMBIN [id number] 05:10:00 Test Item Value Reference Range Interpretation Comments PROTIME (BEAKER) (test code = 13.4 seconds 11.7-14.7 759) INR (BEAKER) (test code = 370) 1.1 <=5.9 RECOMMENDED COUMADIN/WARFARIN INR THERAPY RANGESSTANDARD DOSE: 2.0 - 3.0 Includes: PROPHYLAXIS forvenous thrombosis, systemic embolization; TREATMENT for venous thrombosis and/or pulmonary embolus.HIGH RISK: Target INR is 2.5-3.5 for patients with mechanical heart valves.CBC W/PLT COUNT & AUTO DIFFERENTIAL 2018-06-29 00:26:00 Test Item Value Reference Range Interpretation Comments WHITE BLOOD CELL COUNT (BEAKER) 7.8 K/ L 3.5-10.5 (test code = 775) RED BLOOD CELL COUNT (BEAKER) 2.36 M/ L 4.63-6.08 L (test code = 761) HEMOGLOBIN (BEAKER) (test code = 7.2 GM/DL 13.7-17.5 L 410) HEMATOCRIT (BEAKER) (test code = 21.4 % 40.1-51.0 L 411) MEAN CORPUSCULAR VOLUME (BEAKER) 90.7 fL 79.0-92.2 (test code = 753) MEAN CORPUSCULAR HEMOGLOBIN 30.5 pg 25.7-32.2 (BEAKER) (test code = 751) MEAN CORPUSCULAR HEMOGLOBIN CONC 33.6 GM/DL 32.3-36.5 (BEAKER) (test code = 752) RED CELL DISTRIBUTION WIDTH 13.5 % 11.6-14.4 (BEAKER) (test code = 412) PLATELET COUNT (BEAKER) (test 185 K/CU MM 150-450 code = 756) MEAN PLATELET VOLUME (BEAKER) 10.6 fL 9.4-12.4 (test code = 754) NUCLEATED RED BLOOD CELLS 0 /100 WBC 0-0 (BEAKER) (test code = 413) NEUTROPHILS RELATIVE PERCENT 60 % (BEAKER) (test code = 429) LYMPHOCYTES RELATIVE PERCENT 29 % (BEAKER) (test code = 430) MONOCYTES RELATIVE PERCENT 8 % (BEAKER) (test code = 431) EOSINOPHILS RELATIVE PERCENT 3 % (BEAKER) (test code = 432) BASOPHILS RELATIVE PERCENT 0 % (BEAKER) (test code = 437) NEUTROPHILS ABSOLUTE COUNT 4.63 K/ L 1.78-5.38 (BEAKER) (test code = 670) LYMPHOCYTES ABSOLUTE COUNT 2.23 K/ L 1.32-3.57 (BEAKER) (test code = 414) MONOCYTES ABSOLUTE COUNT (BEAKER) 0.61 K/ L 0.30-0.82 (test code = 415) EOSINOPHILS ABSOLUTE COUNT 0.23 K/ L 0.04-0.54 (BEAKER) (test code = 416) BASOPHILS ABSOLUTE COUNT (BEAKER) 0.02 K/ L 0.01-0.08 (test code = 417) IMMATURE GRANULOCYTES-RELATIVE 1 % 0-1 PERCENT (BEAKER) (test code = 2801) TROPONIN [id number] 17:24:00 Test Item Value Reference Range Interpretation Comments TROPONIN I (BEAKER) (test code = 0.02 ng/mL 0.00-0.03 397) Troponin I (TnI) levels must be interpreted [...] and persistent tachyarrhythmia.CBC W/PLT COUNT & AUTO DIFFERENTIAL 2018-06-28 17:00:00 Test Item Value Reference Range Interpretation Comments WHITE BLOOD CELL COUNT (BEAKER) 6.6 K/ L 3.5-10.5 (test code = 775) RED BLOOD CELL COUNT (BEAKER) 2.38 M/ L 4.63-6.08 L (test code = 761) HEMOGLOBIN (BEAKER) (test code = 7.4 GM/DL 13.7-17.5 L 410) HEMATOCRIT (BEAKER) (test code = 21.9 % 40.1-51.0 L 411) MEAN CORPUSCULAR VOLUME (BEAKER) 92.0 fL 79.0-92.2 (test code = 753) MEAN CORPUSCULAR HEMOGLOBIN 31.1 pg 25.7-32.2 (BEAKER) (test code = 751) MEAN CORPUSCULAR HEMOGLOBIN CONC 33.8 GM/DL 32.3-36.5 (BEAKER) (test code = 752) RED CELL DISTRIBUTION WIDTH 13.4 % 11.6-14.4 (BEAKER) (test code = 412) PLATELET COUNT (BEAKER) (test 167 K/CU MM 150-450 code = 756) MEAN PLATELET VOLUME (BEAKER) 10.1 fL 9.4-12.4 (test code = 754) NUCLEATED RED BLOOD CELLS 0 /100 WBC 0-0 (BEAKER) (test code = 413) NEUTROPHILS RELATIVE PERCENT 62 % (BEAKER) (test code = 429) LYMPHOCYTES RELATIVE PERCENT 27 % (BEAKER) (test code = 430) MONOCYTES RELATIVE PERCENT 7 % (BEAKER) (test code = 431) EOSINOPHILS RELATIVE PERCENT 3 % (BEAKER) (test code = 432) BASOPHILS RELATIVE PERCENT 0 % (BEAKER) (test code = 437) NEUTROPHILS ABSOLUTE COUNT 4.06 K/ L 1.78-5.38 (BEAKER) (test code = 670) LYMPHOCYTES ABSOLUTE COUNT 1.78 K/ L 1.32-3.57 (BEAKER) (test code = 414) MONOCYTES ABSOLUTE COUNT (BEAKER) 0.48 K/ L 0.30-0.82 (test code = 415) EOSINOPHILS ABSOLUTE COUNT 0.20 K/ L 0.04-0.54 (BEAKER) (test code = 416) BASOPHILS ABSOLUTE COUNT (BEAKER) 0.02 K/ L 0.01-0.08 (test code = 417) IMMATURE GRANULOCYTES-RELATIVE 1 % 0-1 PERCENT (BEAKER) (test code = 2801) CBC W/PLT COUNT & AUTO [id number] 10:51:00 Test Item Value Reference Range Interpretation Comments WHITE BLOOD CELL COUNT (BEAKER) 6.9 K/ L 3.5-10.5 (test code = 775) RED BLOOD CELL COUNT (BEAKER) 2.52 M/ L 4.63-6.08 L (test code = 761) HEMOGLOBIN (BEAKER) (test code = 7.8 GM/DL 13.7-17.5 L 410) HEMATOCRIT (BEAKER) (test code = 23.0 % 40.1-51.0 L 411) MEAN CORPUSCULAR VOLUME (BEAKER) 91.3 fL 79.0-92.2 (test code = 753) MEAN CORPUSCULAR HEMOGLOBIN 31.0 pg 25.7-32.2 (BEAKER) (test code = 751) MEAN CORPUSCULAR HEMOGLOBIN CONC 33.9 GM/DL 32.3-36.5 (BEAKER) (test code = 752) RED CELL DISTRIBUTION WIDTH 13.4 % 11.6-14.4 (BEAKER) (test code = 412) PLATELET COUNT (BEAKER) (test 172 K/CU MM 150-450 code = 756) MEAN PLATELET VOLUME (BEAKER) 10.7 fL 9.4-12.4 (test code = 754) NUCLEATED RED BLOOD CELLS 0 /100 WBC 0-0 (BEAKER) (test code = 413) NEUTROPHILS RELATIVE PERCENT 69 % (BEAKER) (test code = 429) LYMPHOCYTES RELATIVE PERCENT 22 % (BEAKER) (test code = 430) MONOCYTES RELATIVE PERCENT 6 % (BEAKER) (test code = 431) EOSINOPHILS RELATIVE PERCENT 2 % (BEAKER) (test code = 432) BASOPHILS RELATIVE PERCENT 0 % (BEAKER) (test code = 437) NEUTROPHILS ABSOLUTE COUNT 4.77 K/ L 1.78-5.38 (BEAKER) (test code = 670) LYMPHOCYTES ABSOLUTE COUNT 1.52 K/ L 1.32-3.57 (BEAKER) (test code = 414) MONOCYTES ABSOLUTE COUNT (BEAKER) 0.41 K/ L 0.30-0.82 (test code = 415) EOSINOPHILS ABSOLUTE COUNT 0.15 K/ L 0.04-0.54 (BEAKER) (test code = 416) BASOPHILS ABSOLUTE COUNT (BEAKER) 0.02 K/ L 0.01-0.08 (test code = 417) IMMATURE GRANULOCYTES-RELATIVE 1 % 0-1 PERCENT (BEAKER) (test code = 2801) TISSUE [id number] 08:07:00Surgical Pathology Report Case: [id number] Authorizing Provider: Marilee Lane MD Collected: 06/27/2018 1124 Ordering Location: [place] [address] ICU Received: 06/27/2018 1528 Pathologist: Binu Magallon MD Specimen: Biopsy, Gastric, random gastric body and antrum PART A RANDOM GASTRIC BIOPSY:ANTRAL MUCOSA WITH FOCALLY ACTIVE CHRONIC GASTRITIS.OXYNTIC MUCOSA WITH MILD CHRONIC IN ACTIVE GASTRITIS.NEGATIVE FOR INTESTINAL METAPLASIA, DYSPLASIA, OR INVASIVE CARCINOMA.HELICOBACTER ORGANISMS ARE IDENTIFIED ON WARTHIN STARRY SPECIAL STAIN. Signing Pathologist Direct Phone Line: [phone] signed by Binu Magallon MD on 06/28/2018 at 8:07 [id number] and postop diagnosis: melenaBiopsy, gastric, random gastric body and antrumReceived in formalin labeled with the patient's name, accession number and "biopsy, gastric" are four irregular conti soft tissue fragments ranging 0.2-0.4 cm which are submitted in toto in A1. CG/pl PERFORMED. The interpretation of this case included the use of immunohistochemistry or special stains.BLOCK A1- WARTHIN STARRYControl Slides Examined: In-house known positive controls were evaluated along with the test tissue. These control slides run alongside of the patients sample show appropriate staining. Internal positive and negative controls when available are evaluated Immunohistochemistry technical testing was performed at [facility], Pathology Laboratory where it was developed and [...] clinical laboratory testing.IRON, TIBC, % SAT. (WITHOUT FERRITIN)2018-06-28 04:45:00 Test Item Value Reference Range Interpretation Comments IRON (BEAKER) (test code = 547) 57.0 ug/dL 40.0-160.0 TOTAL IRON BINDING CAPACITY 191 ug/dL 250-450 L (BEAKER) (test code = 769) IRON % SATURATION (2) (BEAKER) 30 % 20-55 (test code = 2590) Can do this with the next CBCPROTHROMBIN [id number] 04:34:00 Test Item Value Reference Range Interpretation Comments PROTIME (BEAKER) (test code = 14.2 seconds 11.7-14.7 759) INR (BEAKER) (test code = 370) 1.2 <=5.9 RECOMMENDED COUMADIN/WARFARIN INR THERAPY RANGESSTANDARD DOSE: 2.0 - 3.0 Includes: PROPHYLAXIS forvenous thrombosis, systemic embolization; TREATMENT for venous thrombosis and/or pulmonary embolus.HIGH RISK: Target INR is 2.5-3.5 for patients with mechanical heart valves.BASIC METABOLIC [id number] 04:29:00 Test Item Value Reference Range Interpretation Comments SODIUM (BEAKER) 140 meq/L 136-145 (test code = 381) POTASSIUM (BEAKER) 4.1 meq/L 3.5-5.1 (test code = 379) CHLORIDE (BEAKER) 111 meq/L 98-107 H (test code = 382) CO2 (BEAKER) (test 25 meq/L 22-29 code = 355) BLOOD UREA NITROGEN 15 mg/dL 7-21 (BEAKER) (test code = 354) CREATININE (BEAKER) 0.83 mg/dL 0.57-1.25 (test code = 358) GLUCOSE RANDOM 92 mg/dL 70-105 (BEAKER) (test code = 652) CALCIUM (BEAKER) 8.1 mg/dL 8.4-10.2 L (test code = 697) EGFR (BEAKER) (test mL/min/1.73 INSUFFIC IENT CLINICAL code = 1092) sq m DATA TO CALCULA TE ESTIMATED GFR. CBC W/PLT COUNT & AUTO [id number] 23:50:00 Test Item Value Reference Range Interpretation Comments WHITE BLOOD CELL COUNT (BEAKER) 8.0 K/ L 3.5-10.5 (test code = 775) RED BLOOD CELL COUNT (BEAKER) 2.41 M/ L 4.63-6.08 L (test code = 761) HEMOGLOBIN (BEAKER) (test code = 7.4 GM/DL 13.7-17.5 L 410) HEMATOCRIT (BEAKER) (test code = 21.6 % 40.1-51.0 L 411) MEAN CORPUSCULAR VOLUME (BEAKER) 89.6 fL 79.0-92.2 (test code = 753) MEAN CORPUSCULAR HEMOGLOBIN 30.7 pg 25.7-32.2 (BEAKER) (test code = 751) MEAN CORPUSCULAR HEMOGLOBIN CONC 34.3 GM/DL 32.3-36.5 (BEAKER) (test code = 752) RED CELL DISTRIBUTION WIDTH 13.6 % 11.6-14.4 (BEAKER) (test code = 412) PLATELET COUNT (BEAKER) (test 161 K/CU MM 150-450 code = 756) MEAN PLATELET VOLUME (BEAKER) 10.5 fL 9.4-12.4 (test code = 754) NUCLEATED RED BLOOD CELLS 0 /100 WBC 0-0 (BEAKER) (test code = 413) NEUTROPHILS RELATIVE PERCENT 59 % (BEAKER) (test code = 429) LYMPHOCYTES RELATIVE PERCENT 30 % (BEAKER) (test code = 430) MONOCYTES RELATIVE PERCENT 8 % (BEAKER) (test code = 431) EOSINOPHILS RELATIVE PERCENT 3 % (BEAKER) (test code = 432) BASOPHILS RELATIVE PERCENT 0 % (BEAKER) (test code = 437) NEUTROPHILS ABSOLUTE COUNT 4.69 K/ L 1.78-5.38 (BEAKER) (test code = 670) LYMPHOCYTES ABSOLUTE COUNT 2.37 K/ L 1.32-3.57 (BEAKER) (test code = 414) MONOCYTES ABSOLUTE COUNT (BEAKER) 0.62 K/ L 0.30-0.82 (test code = 415) EOSINOPHILS ABSOLUTE COUNT 0.20 K/ L 0.04-0.54 (BEAKER) (test code = 416) BASOPHILS ABSOLUTE COUNT (BEAKER) 0.03 K/ L 0.01-0.08 (test code = 417) IMMATURE GRANULOCYTES-RELATIVE 1 % 0-1 PERCENT (BEAKER) (test code = 2801) TROPONIN [id number] 14:18:00 Test Item Value Reference Range Interpretation Comments TROPONIN I (BEAKER) (test code = 0.01 ng/mL 0.00-0.03 397) Troponin I (TnI) levels must be interpreted [...] and persistent tachyarrhythmia.CBC W/PLT COUNT & AUTO DIFFERENTIAL 2018-06-27 13:21:00 Test Item Value Reference Range Interpretation Comments WHITE BLOOD CELL COUNT (BEAKER) 9.5 K/ L 3.5-10.5 (test code = 775) RED BLOOD CELL COUNT (BEAKER) 2.57 M/ L 4.63-6.08 L (test code = 761) HEMOGLOBIN (BEAKER) (test code = 7.9 GM/DL 13.7-17.5 L 410) HEMATOCRIT (BEAKER) (test code = 23.5 % 40.1-51.0 L 411) MEAN CORPUSCULAR VOLUME (BEAKER) 91.4 fL 79.0-92.2 (test code = 753) MEAN CORPUSCULAR HEMOGLOBIN 30.7 pg 25.7-32.2 (BEAKER) (test code = 751) MEAN CORPUSCULAR HEMOGLOBIN CONC 33.6 GM/DL 32.3-36.5 (BEAKER) (test code = 752) RED CELL DISTRIBUTION WIDTH 13.6 % 11.6-14.4 (BEAKER) (test code = 412) PLATELET COUNT (BEAKER) (test 165 K/CU MM 150-450 code = 756) MEAN PLATELET VOLUME (BEAKER) 10.7 fL 9.4-12.4 (test code = 754) NUCLEATED RED BLOOD CELLS 0 /100 WBC 0-0 (BEAKER) (test code = 413) NEUTROPHILS RELATIVE PERCENT 66 % (BEAKER) (test code = 429) LYMPHOCYTES RELATIVE PERCENT 23 % (BEAKER) (test code = 430) MONOCYTES RELATIVE PERCENT 8 % (BEAKER) (test code = 431) EOSINOPHILS RELATIVE PERCENT 2 % (BEAKER) (test code = 432) BASOPHILS RELATIVE PERCENT 0 % (BEAKER) (test code = 437) NEUTROPHILS ABSOLUTE COUNT 6.29 K/ L 1.78-5.38 H (BEAKER) (test code = 670) LYMPHOCYTES ABSOLUTE COUNT 2.23 K/ L 1.32-3.57 (BEAKER) (test code = 414) MONOCYTES ABSOLUTE COUNT (BEAKER) 0.75 K/ L 0.30-0.82 (test code = 415) EOSINOPHILS ABSOLUTE COUNT 0.17 K/ L 0.04-0.54 (BEAKER) (test code = 416) BASOPHILS ABSOLUTE COUNT (BEAKER) 0.03 K/ L 0.01-0.08 (test code = 417) IMMATURE GRANULOCYTES-RELATIVE 1 % 0-1 PERCENT (BEAKER) (test code = 2801) IRON, TIBC, % SAT. (WITHOUT FERRITIN)2018-06-27 08:58:00 Test Item Value Reference Range Interpretation Comments IRON (BEAKER) (test code = 547) 73.0 ug/dL 40.0-160.0 TOTAL IRON BINDING CAPACITY 189 ug/dL 250-450 L (BEAKER) (test code = 769) IRON % SATURATION (2) (BEAKER) 39 % 20-55 (test code = 2590) Can do this with the next cbc checkCan do this with the next CBCFERRITIN 2018-06-27 07:30:00 Test Item Value Reference Range Interpretation Comments FERRITIN (BEAKER) (test code = 361) 46 ng/mL 5-275 Can do this with the next cbc checkCan do this with the next CBCTROPONIN I 2018-06-27 03:49:00 Test Item Value Reference Range Interpretation Comments TROPONIN I (BEAKER) (test code = 397) < ng/mL 0.00-0.03 Troponin I (TnI) levels [...] acidosis, acute neurological disease, and persistent tachyarrhythmia.RETICULOCYTE [id number] 03:26:00 Test Item Value Reference Range Interpretation Comments RETICULOCYTE COUNT PCT (BEAKER) (test 2.8 % 0.5-1.8 H code = 575) RAD, CHEST, 1 VIEW, NON [id number] 03:04:00Reason for exam:->gibShould this be performed at the bedside?->YesFINAL REPORT History: GI bleed. Comparison: None. Findings: A single view ofthe chest is submitted. The cardiomediastinal contours are unremarkable. The lung volumes are low. There is no focal consolidation, pneumothorax, large pleural effusion or evidence of overt pulmonary edema. There is no acute bony abnormality. Signed: Mo Shah MDReport Verified Date/Time: 06/27/2018 03:04:43 Reading Location: [address] Reading Room COMPREHENSIVE METABOLIC PANEL 2018-06-27 02:57:00 Test Item Value Reference Range Interpretation Comments TOTAL PROTEIN 5.1 gm/dL 6.0-8.3 L (BEAKER) (test code = 770) ALBUMIN (BEAKER) 3.1 g/dL 3.5-5.0 L (test code = 1145) ALKALINE PHOSPHATASE 64 U/L 40-150 (BEAKER) (test code = 346) BILIRUBIN TOTAL 0.2 mg/dL 0.2-1.2 (BEAKER) (test code = 377) SODIUM (BEAKER) 139 meq/L 136-145 (test code = 381) POTASSIUM (BEAKER) 4.0 meq/L 3.5-5.1 (test code = 379) CHLORIDE (BEAKER) 113 meq/L 98-107 H (test code = 382) CO2 (BEAKER) (test 23 meq/L 22-29 code = 355) BLOOD UREA NITROGEN 31 mg/dL 7-21 H (BEAKER) (test code = 354) CREATININE (BEAKER) 0.75 mg/dL 0.57-1.25 (test code = 358) GLUCOSE RANDOM 118 mg/dL 70-105 H (BEAKER) (test code = 652) CALCIUM (BEAKER) 7.8 mg/dL 8.4-10.2 L (test code = 697) AST (SGOT) (BEAKER) 12 U/L 5-34 (test code = 353) ALT (SGPT) (BEAKER) 14 U/L 6-55 (test code = 347) EGFR (BEAKER) (test mL/min/1.73 INSUFFIC IENT code = 1092) sq m CLINICAL DATA T O CALCULATE ESTIM ATED GFR. [id number] 02:43:00 Test Item Value Reference Range Interpretation Comments PROTIME (BEAKER) (test code = 15.1 seconds 11.7-14.7 H 759) INR (BEAKER) (test code = 370) 1.3 <=5.9 PARTIAL THROMBOPLASTIN TIME 31.2 seconds 22.5-36.0 (BEAKER) (test code = 760) RECOMMENDED COUMADIN/WARFARIN INR THERAPY RANGESSTANDARD DOSE: 2.0 - 3.0 Includes: PROPHYLAXIS forvenous thrombosis, systemic embolization; TREATMENT for venous thrombosis and/or pulmonary embolus.HIGH RISK: Target INR is 2.5-3.5 for patients with mechanical heart valves.PROTHROMBIN [id number] 02:42:00 Test Item Value Reference Range Interpretation Comments PROTIME (BEAKER) (test code = 15.1 seconds 11.7-14.7 H 759) INR (BEAKER) (test code = 370) 1.3 <=5.9 RECOMMENDED COUMADIN/WARFARIN INR THERAPY RANGESSTANDARD DOSE: 2.0 - 3.0 Includes: PROPHYLAXIS forvenous thrombosis, systemic embolization; TREATMENT for venous thrombosis and/or pulmonary embolus.HIGH RISK: Target INR is 2.5-3.5 for patients with mechanical heart valves.LACTIC ACID, [id number] 02:39:00 Test Item Value Reference Range Interpretation Comments LACTATE BLOOD VENOUS (2) (BEAKER) 0.9 mmol/L 0.5-2.2 (test code = 2872) CBC W/PLT COUNT & AUTO [id number] 02:25:00 Test Item Value Reference Range Interpretation Comments WHITE BLOOD CELL COUNT (BEAKER) 9.7 K/ L 3.5-10.5 (test code = 775) RED BLOOD CELL COUNT (BEAKER) 2.53 M/ L 4.63-6.08 L (test code = 761) HEMOGLOBIN (BEAKER) (test code = 7.7 GM/DL 13.7-17.5 L 410) HEMATOCRIT (BEAKER) (test code = 22.8 % 40.1-51.0 L 411) MEAN CORPUSCULAR VOLUME (BEAKER) 90.1 fL 79.0-92.2 (test code = 753) MEAN CORPUSCULAR HEMOGLOBIN 30.4 pg 25.7-32.2 (BEAKER) (test code = 751) MEAN CORPUSCULAR HEMOGLOBIN CONC 33.8 GM/DL 32.3-36.5 (BEAKER) (test code = 752) RED CELL DISTRIBUTION WIDTH 13.2 % 11.6-14.4 (BEAKER) (test code = 412) PLATELET COUNT (BEAKER) (test 170 K/CU MM 150-450 code = 756) MEAN PLATELET VOLUME (BEAKER) 10.7 fL 9.4-12.4 (test code = 754) NUCLEATED RED BLOOD CELLS 0 /100 WBC 0-0 (BEAKER) (test code = 413) NEUTROPHILS RELATIVE PERCENT 63 % (BEAKER) (test code = 429) LYMPHOCYTES RELATIVE PERCENT 28 % (BEAKER) (test code = 430) MONOCYTES RELATIVE PERCENT 7 % (BEAKER) (test code = 431) EOSINOPHILS RELATIVE PERCENT 2 % (BEAKER) (test code = 432) BASOPHILS RELATIVE PERCENT 0 % (BEAKER) (test code = 437) NEUTROPHILS ABSOLUTE COUNT 6.07 K/ L 1.78-5.38 H (BEAKER) (test code = 670) LYMPHOCYTES ABSOLUTE COUNT 2.75 K/ L 1.32-3.57 (BEAKER) (test code = 414) MONOCYTES ABSOLUTE COUNT (BEAKER) 0.64 K/ L 0.30-0.82 (test code = 415) EOSINOPHILS ABSOLUTE COUNT 0.18 K/ L 0.04-0.54 (BEAKER) (test code = 416) BASOPHILS ABSOLUTE COUNT (BEAKER) 0.02 K/ L 0.01-0.08 (test code = 417) IMMATURE GRANULOCYTES-RELATIVE 0 % 0-1 PERCENT (BEAKER) (test code = 1911)
[2019-08-04 17:57] LABS: Albumin 3.8 g/dL (3.4-5.0); Bilirubin Direct 0.1 mg/dL (0-0.2); Bilirubin Total 0.4 mg/dL (0.2-1.0); Potassium 3.2 mmol/L (3.5-5.1); Protein, Total 7.9 g/dL (6.4-8.2)
--- NOTE | 2019-08-04 18:05 | RAD REPORT ---
EXAM DESCRIPTION: US - Abdomen Exam Limited - 08/04/2019 5:55 pm CLINICAL HISTORY: R/O GB;Abd pain COMPARISON: Small Bowel Series dated 01/14/2019Small Bowel Series dated 01/14/2019 FINDINGS: No gallstones, sludge or other abnormalities within the gallbladder lumen. Gallbladder wal l is borderline for thickening. No pericholecystic fluid. No common duct stone or biliary tree dilatation identified. IMPRESSION: No gallstones or sludge. Borderline gallbladder wall thickening.
[2019-08-04] MEDS ORDERED: POTASSIUM 25 MEQ EFFERV TAB ONE (18:53)
--- NOTE | 2019-08-04 19:27 | ER ---
Nurse's Notes [facility] Name: Mp Moreno Age: 64 yrs Sex: Male : 1955 Arrival Date: 08/04/2019 Time: 16:37 Bed 4 Private MD: Diagnosis: Gastritis and duodenitis Presentation: 08/03 16:38 Chief complaint: Patient states: Abdominal burning that occurs every 1-2 hours after ss eating a meal. Pt reports this has been going on for 3 weeks. Pt has had lab work at Dr. Blunt's office recently and was told everything was good. Dr. Blunt recommended patient comes to ER for further evaluation. Coronavirus screen: Proceed with normal triage. Patient denies a cough. Patient denies shortness of breath or difficulty breathing. Patient denies measured and/or subjective temperature greater than 100.4F prior to today's visit. Patient denies travel on a cruise ship or to a country the [facility] currently lists as an affected area. Patient denies contact with known and/or suspected case of COVID-19. Ebola Screen: Patient denies exposure to infectious person. Patient denies travel to an Ebola-affected area in the 21 days before illness onset. Initial Sepsis Screen: Does the patient meet any 2 criteria? No. Patient's initial sepsis screen is negative. Does the patient have a suspected source of infection? No. Patient's initial sepsis screen is negative. Risk Assessment: Do you want to hurt yourself or someone else? Patient reports no desire to harm self or others. Onset of symptoms was July 2019. 16:38 Method Of Arrival: Ambulatory ss 16:38 Acuity: ANTONETTE 3 Triage Assessment: 16:40 General: Appears in no apparent distress. uncomfortable, Behavior is cooperative, bp appropriate for age, anxious. Pain: Complains of pain in left upper quadrant and right upper quadrant. EENT: No deficits noted. Neuro: No deficits noted. Cardiovascular: Rhythm is sinus rhythm. Respiratory: No deficits noted. GI: Reports upper abdominal pain, nausea, vomiting. : No signs and/or symptoms were reported regarding the genitourinary system. Derm: No deficits noted. Musculoskeletal: No deficits noted. Historical: - Allergies: 16:42 NKDA; ss - PMHx: 16:42 High Cholesterol; Hyperlipidemia; Hypertension; Kidney stones; Myocardial infarction; ss PUD; - Immunization history:: Adult Immunizations up to date. - Social history:: Smoking status: Patient denies any tobacco usage or history of. Screenin:51 Abuse screen: Denies threats or abuse. Denies injuries from another. Nutritional iw screening: No deficits noted. Tuberculosis screening: No symptoms or risk factors identified. Fall Risk IV access (20 points). Assessment: 16:50 General: Appears in no apparent distress. Behavior is calm, cooperative. Pain: iw Complains of pain in right upper quadrant and left upper quadrant. Neuro: Level of Consciousness is awake, alert, obeys commands, Oriented to person, place, time, situation, Moves all extremities. Full function. Cardiovascular: Patient's skin is warm and dry. Respiratory: Respiratory effort is even, unlabored, Respiratory pattern is regular. GI: Bowel sounds present X 4 quads. Abd is soft X 4 quads Abdomen is tender to palpation in right upper quadrant and left upper quadrant. Derm: Skin is intact, is healthy with good turgor. Musculoskeletal: Range of motion: intact in all extremities. 18:01 Reassessment: IVF INFUSING. NO FURTHER VOMITING AT THIS TIME. bp Vital Signs: 16:38 BP 125 / 77; Pulse 67; Resp 19; Temp 98.5(TE); Pulse Ox 98% on R/A; Weight 72.12 kg; ss Height 5 ft. 8 in. (172.72 cm); Pain 4/10; 18:00 BP 109 / 74; Pulse 60; Resp 16; Pulse Ox 100% ; bp 20:12 BP 104 / 63; Pulse 66; Resp 15; Temp 98.3; Pulse Ox 99% on R/A; rv 16:38 Body Mass Index 24.18 (72.12 kg, 172.72 cm) ED Course: 16:37 Patient arrived in ED. ss 16:38 Cristóbal Wilkinson PA is PHCP. jr8 16:38 Isidro Irizarry MD is Attending Physician. jr8 16:38 Ayaz Conde, SONALI is Primary Nurse. bp 16:40 Triage completed. ss 16:42 Arm band placed on right wrist. ss 16:51 Maintain EMS IV. Dressing intact. Good blood return noted. Site clean \T\ dry. Gauge \T\ iw site: 20 LAC. 16:52 Patient has correct armband on for positive identification. iw 17:55 US Abdomen Limited In Process Unspecified. EDMS 19:26 Xu Navas MD is Referral Physician. jr8 20:12 No provider procedures requiring assistance completed. IV discontinued, intact, rv bleeding controlled, No redness/swelling at site. Pressure dressing applied. Administered Medications: 17:09 Drug: NS 0.9% 1000 ml Route: IV; Rate: 1000 ml; Site: left antecubital; iw 17:09 Drug: Zofran (Ondansetron) 4 mg Route: IVP; Site: left antecubital; iw 18:38 Follow up: Response: Nausea is decreased bp 17:09 Drug: morphine 4 mg Route: IVP; Site: left antecubital; iw 18:38 Follow up: Response: Pain is decreased bp 19:00 Drug: Potassium Effervescent Tablet 50 mEq Route: PO; bp 19:04 Follow up: Response: No adverse reaction bp 19:03 CANCELLED (Physician Discretion): Potassium Chloride 20 mEq IV at calculated rate once; bp administer over 1-2 hours Outcome: 19:27 Discharge ordered by . jr8 20:12 Discharged to home ambulatory. rv 20:12 Condition: good 20:12 Discharge instructions given to patient, Instructed on discharge instructions, follow up and referral plans. medication usage, Demonstrated understanding of instructions, follow-up care, medications, Prescriptions given X 1. 20:13 Patient left the ED. rv Signatures: Dispatcher [employer] EDWI Gabriela Mcduffie RN RN Danna Valles RN RN ss Roszak, Josh, PA PA jr8 Ayaz Conde RN RN Gonzalo Becerril RN RN rv
--- NOTE | 2019-08-04 19:28 | EDPHYS ---
Physician Documentation [facility] Name: Mp Moreno Age: 64 yrs Sex: Male : 1955 Arrival Date: 08/04/2019 Time: 16:37 Bed 4 Private MD: ED Physician Isidro Irizarry HPI: 08/03 19:04 This 64 yrs old Male presents to ER via Ambulatory with complaints of jr8 Abdominal Pain. 19:04 The patient presents with abdominal pain in the upper abdomen. Onset: The jr8 symptoms/episode began/occurred acutely, today. The symptoms do not radiate. Associated signs and symptoms: Pertinent positives: nausea and vomiting. The symptoms are described as stabbing. Modifying factors: The symptoms are alleviated by nothing, the symptoms are aggravated by food. Severity of pain: At its worst the pain was moderate in the emergency department the pain is unchanged. The patient has experienced similar episodes in the past, several times. The patient has not recently seen a physician. Patient with history of gastric ulcers. Stated that for several weeks has been having n/v and abdominal pain post prandial. Last EGD a year ago showing bleeding ulcer which ended up needing blood transfusion. Denies hematemesis or melena at this time. . Historical: - Allergies: 16:42 NKDA; ss - PMHx: 16:42 High Cholesterol; Hyperlipidemia; Hypertension; Kidney stones; Myocardial infarction; ss PUD; - Immunization history:: Adult Immunizations up to date. - Social history:: Smoking status: Patient denies any tobacco usage or history of. ROS: 19:04 Eyes: Negative for injury, pain, redness, and discharge, ENT: Negative for injury, jr8 pain, and discharge, Neck: Negative for injury, pain, and swelling, Cardiovascular: Negative for chest pain, palpitations, and edema, Respiratory: Negative for shortness of breath, cough, wheezing, and pleuritic chest pain, Back: Negative for injury and pain, MS/Extremity: Negative for injury and deformity, Skin: Negative for injury, rash, and discoloration, Neuro: Negative for headache, weakness, numbness, tingling, and seizure. 19:04 Abdomen/GI: Positive for abdominal pain, nausea and vomiting, Negative for constipation, abdominal cramps, abdominal distension, anorexia, dysphagia, hematemesis, black/tarry stool, rectal pain, rectal bleeding, bowel incontinence, flatulence. Exam: 19:04 Eyes: Pupils equal round and reactive to light, extra-ocular motions intact. Lids and jr8 lashes normal. Conjunctiva and sclera are non-icteric and not injected. Cornea within normal limits. Periorbital areas with no swelling, redness, or edema. ENT: Nares patent. No nasal discharge, no septal abnormalities noted. Tympanic membranes are normal and external auditory canals are clear. Oropharynx with no redness, swelling, or masses, exudates, or evidence of obstruction, uvula midline. Mucous membranes moist. Neck: Trachea midline, no thyromegaly or masses palpated, and no cervical lymphadenopathy. Supple, full range of motion without nuchal rigidity, or vertebral point tenderness. No Meningismus. Cardiovascular: Regular rate and rhythm with a normal S1 and S2. No gallops, murmurs, or rubs. Normal PMI, no JVD. No pulse deficits. Respiratory: Lungs have equal breath sounds bilaterally, clear to auscultation and percussion. No rales, rhonchi or wheezes noted. No increased work of breathing, no retractions or nasal flaring. Back: No spinal tenderness. No costovertebral tenderness. Full range of motion. Skin: Warm, dry with normal turgor. Normal color with no rashes, no lesions, and no evidence of cellulitis. MS/ Extremity: Pulses equal, no cyanosis. Neurovascular intact. Full, normal range of motion. Neuro: Awake and alert, GCS 15, oriented to person, place, time, and situation. Cranial nerves II-XII grossly intact. Motor strength 5/5 in all extremities. Sensory grossly intact. Cerebellar exam normal. Normal gait. 19:04 Abdomen/GI: Inspection: abdomen appears normal, Bowel sounds: active, all quadrants, Palpation: soft, in all quadrants, moderate abdominal tenderness, in the epigastric area, right upper quadrant and left upper quadrant, mass, is not appreciated, rebound tenderness, is not appreciated, voluntary guarding, is not appreciated, involuntary guarding, is not appreciated, no appreciated organomegaly, Indicators: McBurney's point is not tender, Casillas's sign is negative, Rovsing's sign is negative, Liver: tenderness, is not appreciated. Vital Signs: 16:38 BP 125 / 77; Pulse 67; Resp 19; Temp 98.5(TE); Pulse Ox 98% on R/A; Weight 72.12 kg; ss Height 5 ft. 8 in. (172.72 cm); Pain 4/10; 18:00 BP 109 / 74; Pulse 60; Resp 16; Pulse Ox 100% ; bp 20:12 BP 104 / 63; Pulse 66; Resp 15; Temp 98.3; Pulse Ox 99% on R/A; rv 16:38 Body Mass Index 24.18 (72.12 kg, 172.72 cm) ss MDM: 16:38 Patient medically screened. jr8 19:24 Differential diagnosis: cholecystitis, Cholelithiasis, diverticulitis, gastritis, jr8 gastroesophageal reflux disease, GI Bleed, Hepatitis, myocardia ischemia or infarction, non-specific abd pain, pancreatitis, Peptic Ulcer Disease, Perf. Duodenal Ulcer, Perf. Gastric Ulcer. Data reviewed: vital signs, nurses notes, lab test result(s), radiologic studies, ultrasound. Data interpreted: Pulse oximetry: on room air is 100 %. Interpretation: normal. Counseling: I had a detailed discussion with the patient and/or guardian regarding: the historical points, exam findings, and any diagnostic results supporting the discharge/admit diagnosis, lab results, radiology results, the need for outpatient follow up, a sports centre manager, to return to the emergency department if symptoms worsen or persist or if there are any questions or concerns that arise at home. Response to treatment: the patient's symptoms have markedly improved after treatment. Special discussion: Based on the patient's Hx, exam, and Dx evaluation, there is no indication for emergent surgery or inpatient Tx. It is understood by the patient/guardian that if the Sx's persist or worsen they need to return immediately for re-evaluation. ED course: Based on exam, labs, and US it appears patient is still having peptic ulcer disease. Will add sucralfate to his Protonix regiment and told to f/u with Dr. Navas for another EGD and evaluation. If worse to come back to ED . 08/03 16:38 Order name: Basic Metabolic Panel; Complete Time: 17:58 08/03 16:38 Order name: CBC with Diff; Complete Time: 17:58 08/03 16:38 Order name: Hepatic Function; Complete Time: 17:58 08/03 16:38 Order name: Lipase; Complete Time: 17:58 08/03 16:38 Order name: US Abdomen Limited; Complete Time: 18:11 08/03 16:38 Order name: IV Saline Lock; Complete Time: 16:48 08/03 16:38 Order name: Labs collected and sent; Complete Time: 16:48 08/03 16:38 Order name: EKG - Nurse/Tech; Complete Time: 18:02 08/03 17:06 Order name: Labs - recollect needed: chemistry only; Complete Time: 17:38 eb Administered Medications: 17:09 Drug: NS 0.9% 1000 ml Route: IV; Rate: 1000 ml; Site: left antecubital; iw 17:09 Drug: Zofran (Ondansetron) 4 mg Route: IVP; Site: left antecubital; iw 18:38 Follow up: Response: Nausea is decreased bp 17:09 Drug: morphine 4 mg Route: IVP; Site: left antecubital; iw 18:38 Follow up: Response: Pain is decreased bp 19:00 Drug: Potassium Effervescent Tablet 50 mEq Route: PO; bp 19:04 Follow up: Response: No adverse reaction bp 19:03 CANCELLED (Physician Discretion): Potassium Chloride 20 mEq IV at calculated rate once; bp administer over 1-2 hours Disposition: 08/04 13:23 Co-signature as Attending Physician, Isidro Irizarry MD I agree with the assessment and [place] plan of care. Disposition: 08/04/19 19:27 Discharged to Home. Impression: Gastritis and duodenitis. - Condition is Stable. - Discharge Instructions: Peptic Ulcer, Food Choices for Peptic Ulcer Disease. - Prescriptions for sucralfate 1 gram Oral tablet - take 1 tablet by ORAL route 4 times per day on an empty stomach 1 hour before meals and at bedtime; 120 tablet. - Medication Reconciliation Form, Thank You Letter, Antibiotic Education, Prescription Opioid Use form. - Follow up: Xu Navas MD; When: 1 - 2 days; Reason: Recheck today's complaints, Continuance of care, Re-evaluation by your physician. - Problem is new. - Symptoms have improved. Signatures: Dispatcher [employer] Isidro Yanez MD MD cha Williams, Irene, RN Danna Shah, RN RN Cristóbal Gonzalez PA PA jr8 Ayaz Conde RN RN Maylin Gandhi Ronaldo, RN RN rv Corrections: (The following items were deleted from the chart) 08/03 19:03 18:12 Potassium Chloride 20 mEq IV at calculated rate once; administer over 1-2 hours bp ordered. jr8 20:13 19:27 08/04/2019 19:27 Discharged to Home. Impression: Gastritis and duodenitis. rv Condition is Stable. Forms are Medication Reconciliation Form, Thank You Letter, Antibiotic Education, Prescription Opioid Use. Follow up: Xu Navas; When: 1 - 2 days; Reason: Recheck today's complaints, Continuance of care, Re-evaluation by your physician. Problem is new. Symptoms have improved. jr8
[2019-08-04 20:37] VITALS: BP 104/63; TEMP 98.3; O2SAT 99
== END 2019-08-04 20:13 | disposition home or self-care (01) ==
LOC: ER 16:33
DX: K29.70 Gastritis, unspecified, without bleeding (principal); K29.80 Duodenitis without bleeding; I10 Essential (primary) hypertension
CPT/HCPCS: 36415; 76705; 80048; 80076; 83690; 85025; 96374; 96375; 99284; J2405; J7030

== ENCOUNTER 2019-09-22 18:58 | Emergency (ER) | payer SELFPAY ==
--- OUTSIDE RECORDS SUMMARY | 2019-09-22 19:02 | XMS REPORT | Clinical Summary ---
:1955 Author Organization [facility] Address [address] [place] [id number] Care Team Providers Name Role Phone Unavailable Primary Care Provider Unavailable Allergies No Known Allergies Medications Medication Sig Dispensed Refills Start Date End Date Status ezetimibe (ZETIA) Take 10 mg by 0 Active 10 mg mouth daily. tabletIndications: excessive fat in the blood niacin Take 500 mg by 0 Activ e (SLO-NIACIN) 500 mouth 2 (two) mg tablet times daily with breakfast and dinner. losartan (COZAAR) Take 50 mg by 0 Active 50 MG tablet mouth daily. erythromycin base TAKE ONE-FOURTH 0 09/02/2019 Active (E-MYCIN) 250 MG (1/4 ) OF A tablet TABLET BY MOUTH FOUR TIMES A DAY FOR 3 WEEKS, THEN STOP FOR 3 WEEKS BEFORE STARTING CYCLE AGAIN. pantoprazole Take 1 tablet 20 tablet 0 09/16/2019 Ac tive (PROTONIX) 20 MG (20 mg total) 0 tablet by mouth daily for 20 days. sucralfate Take 10 mLs (1 420 mL 0 09/16/2019 Act donnie (CARAFATE) 100 g total) by 0 mg/mL suspension mouth 4 (four) times daily for 30 days. ondansetron Take 1 tablet 12 tablet 0 09/16/2019 Act donnie (ZOFRAN) 4 MG (4 mg total) by 0 tablet mouth every 6 (six) hours for 7 days. aspirin 81 MG EC Take 81 mg by 0 Discontinued tabletIndications: mouth daily. 0 treatment to prevent a heart attack, blood clot prevention following percutaneous coronary intervention pantoprazole Take 1 tablet 60 tablet 2 07/01/2018 Ex pired (PROTONIX) 40 MG (40 mg total) 9 tablet by mouth 2 (two) times daily for 90 days. iron-multivitamins Take 1 tablet 120 tablet 0 07/01/201810/29 -minerals by mouth daily 9 (THERAGRAN-M) 9 mg for 120 days. iron-400 mcg Tab tablet simvastatin Take 1 tablet 0 07/16/2018 Dis continued (ZOCOR) 40 MG (40 mg total) 0 tablet by mouth nightly. pantoprazole Take 40 mg by 0 07/12/2018 Di scontinued (PROTONIX) 40 MG mouth. 0 tablet Active Problems Problem Noted Date Duodenal ulcer with hemorrhage but without obstruction 06/28/2018 Anemia, secondary 06/28/2018 Hiatal hernia 06/28/2018 Melena 06/28/2018 Hyperlipidemia 06/28/2018 GIB (gastrointestinal bleeding) 06/27/2018 Coronary artery disease involving qawalangin coronary jennyfer ry of qaw[place]angin heart 06/27/2018 without angina pectoris Encounters Date Type Specialty Care Team Description 09/16/2019 Emergency Emergency Medicine Dacia Treviño Naus ea and vomiting, intractability of vomiting not specified, unspecified vomiting type (Primary Dx); Hypokalemia 09/16/2019 Travel after 09/21/2018 Family History Medical History Relation Name Comments Heart disease Father Diabetes Mother Hypertension Mother Relation Name Status Comments Father Mother Social History Tobacco Use Types Packs/Day Years Used Date Former Smoker Smokeless Tobacco: Former User Comments: PAST SMOKER (SMOKED FOR 3 YEAR S2013 - [id number]) Alcohol Use Drinks/Week oz/Week Comments Yes 5 Cans of beer 3.0 ON OCCASION WEEK END Sex Assigned at Date Recorded Not on file Job Start Date Occupation Industry Not on file Not on file Not on file Travel History Travel Start Travel End No recent travel history available. Last Filed Vital Signs Vital Sign Reading Time Taken Blood Pressure 130/59 09/16/2019 4:00 PM CDT Pulse 96 09/16/2019 4:00 PM CDT Temperature 36.7 C (98 F) 09/16/2019 4:00 PM CDT Respiratory Rate 16 09/16/2019 4:00 PM CDT Oxygen Saturation 100% 09/16/2019 4:00 PM CDT Inhaled Oxygen Concentration - - Weight 63.5 kg (140 lb) 09/16/2019 1:53 PM CDT Height 167.6 cm (5' 6") 09/16/2019 1:53 PM CDT Body Mass Index 22.6 09/16/2019 1:53 PM CDT Plan of Treatment Date Type Specialty Care Team Description 10/23/2019 Hospital Encounter Gastroenterology Viky Weaver MD [address] [place], [place] [address] [phone] 10/23/2019 Surgery Gastroenterology Rao Weaver MD UPPER ENDOSCOPY [address] [place], [place] [address] [phone] Procedures Procedure Name Priority Date/Time Associated Comments Diagnosis CBC W/PLT COUNT & AUTO STAT 09/16/2019 2:32 R esults for this DIFFERENTIAL PM CDT procedure are i n the results section. COMPREHENSIVE STAT 09/16/2019 2:32 Results fo r this METABOLIC PANEL PM CDT procedure ar e in the results section. LIPASE STAT 09/16/2019 2:32 Results for this PM CDT procedure are i n the results section. PT/APTT STAT 09/16/2019 2:32 Results for this PM CDT procedure are i n the results section. CBC W/PLT COUNT & AUTO STAT 09/16/2019 2:32 R esults for this DIFFERENTIAL PM CDT procedure are i n the results section. after 09/21/2018 Results PT/aPTT (09/16/2019 2:32 PM CDT) Protime 14.1 11.9 - 14.2 seconds [facility] INR 1.12 <=[address] [facility] PTT 39.8 (H) 22.5 - 36.0 seconds [facility] Specimen Blood Narrative Performed At Effective 2018: PT Reference Range [facility] Change New: 11.9-14.2Previous: 11.7-14.7 RECOMMENDED COUMADIN/WARFARIN INR THERAPY RANGES STANDARD DOSE: 2.0-3.0Includes: PROPHYLAXIS for venous thrombosis, systemic embolization; TREATMENT for venous thrombosis and/or pulmonary embolus. HIGH RISK: Target INR is 2.5-3.5 for patients wiht mechanical heart valves. Performing Organization Address City/State/Zipcode Phone Number [facility] [address] [place] [address] CENTER CBC with platelet count + automated diff (09/16/2019 2:32 PM CDT) WBC 11.5 (H) 3.5 - 10.5 K/L [facility] H [facility] RBC 4.78 4.63 - 6.08 M/L [facility] Hemoglobin 13.6 (L) 13.7 - 17.5 GM/DL [facility] Hematocrit 40.4 40.1 - 51.0 % [facility] MCV 84.5 79.0 - 92.2 fL [facility] MCH 28.5 25.7 - 32.2 pg [facility] MCHC 33.7 32.3 - 36.5 GM/DL [facility] RDW 12.8 11.6 - 14.4 % [facility] Platelets 375 150 - 450 K/CU MM [facility] MPV 9.5 9.4 - 12.4 fL [facility] nRBC 0 0 - 0 /[address] [facility] % Neutros 81 % [facility] ST [facility] % Lymphs 10 % [facility] % Monos 8 % [facility] % Eos 0 % [facility] % Baso 0 % [facility] # Neutros 9.37 (H) 1.78 - 5.38 K/L [facility] # Lymphs 1.16 (L) 1.32 - 3.57 K/L [facility] # Monos 0.89 (H) 0.30 - 0.82 K/L [facility] # Eos 0.04 0.04 - 0.54 K/L [facility] # Baso 0.02 0.01 - 0.08 K/L [facility] Immature Granulocytes-Relative 0 0 - 1 % C [facility] Specimen Blood Performing Organization Address [facility] Cent[facility]ode Phone Number [address] [address] CENTER Lipase (09/16/2019 2:32 PM CDT) Lipase 107 (H) 8 - 78 U/L [facility] Specimen Blood Narrative Performed At Building Equipment Operator ID - DONIS Myers [facility] Performing Organization Address [facility] Centercowi Phone Number [address] [address] [place] Comprehensive metabolic panel (09/16/2019 2:32 PM CDT) Protein, Total 7.7 6.0 - 8.3 gm/dL [facility] ER Albumin 3.7 3.5 - 5.0 g/dL [facility] ER Alkaline Phosphatase 99 40 - 150 U/L [facility] Total Bilirubin 0.5 0.2 - 1.2 mg/dL [facility] Sodium 134 (L) 136 - 145 meq/L [facility] Potassium 3.0 (L) 3.5 - 5.1 meq/L [facility] ER Chloride 90 (L) 98 - 107 meq/L [facility] ER CO2 25 22 - 29 meq/L [facility] BUN 16 7 - 21 mg/dL [facility] Creatinine 1.01 0.57 - 1.25 mg/dL [facility] ER Glucose 72 70 - 105 mg/dL [facility] ER Calcium 9.8 8.4 - 10.2 mg/dL [facility] ST DEMARCOS H [facility] ER AST 15 5 - 34 U/L [facility]CU[facility] ER ALT 9 6 - 55 U/L [facility] ST MAHONEY HE [facility] ER EGFR Comment: [facility]FF[facility] CLINICAL DATA TO [facility] MEDICAL [address] CALCULATE ESTIMATED GFR. Specimen Blood Narrative Performed At Building Equipment Operator VIRGEN - DONIS Myers [facility] Performing Organization Address City/State/[facility] Centercode Phone Number [facility] [address] [place] [address] CENTER after 09/21/2018 Insurance Payer Benefit Plan / Group Subscriber ID Type Phone A ddress [employer] SELF PAY OP DIAGNSTC IMGING PKG Advance Directives For more information, please contact:[facility] CenterGabriela marileeMultiCare Good Samaritan HospitalFdjqqo[address] [place], [place] [phone] Code Status Date Activated Date Inactivated Comments Full Code 06/27/2018 2:40 AM 07/01/2018 1:03 PM This code status was determined by: Patient
--- OUTSIDE RECORDS SUMMARY | 2019-09-22 19:04 | XMS REPORT | Continuity of Care Document ---
:1955 Author Organization [facility] t Address [address] [place] [address] Care Team Providers Name Role Phone Dacia Treviño MD Attending Clinician DACIA TREVIÑO Attending Clinician Unavailable LEANNE FRANCO Attending Clinician Unavailable ROBERT FRANCO Admitting Clinician Unavailable Payers Payer Name Policy Type Policy Number Effective Date Expiration Date S ource Problems Condition Condition Condition Status Onset Resolution [...] [facility]-24 [facility] Hiatal Hiatal Disease Active 2018- [facility] Melena Melena Disease Active [facility] Hyperlipid Hyperlipid Disease Active [address] emia emia 5-24 [facility] GIB GIB Disease Active 2019- [facility] (gastroint (gastroint 5-23 Selina kes - estinal estinal 00:00: Medical bleeding) bleeding) 00 Cent er Coronary Coronary Disease Active 2019 [facility] - disease disease 00:00: Medical involving involving 00 Cent [facility] [place] coronary coronary artery of artery of [place] heart heart without without angina angina pectoris pectoris Allergies, Adverse Reactions, Alerts This patient has no known allergies or adverse reactions. Family History Family Member Diagnosis Comments Start Date Stop Date Source Natural father Heart disease [facility] Natural mother Diabetes [facility] Natural mother Hypertension [facility] Social History Social Habit Start Date Stop Date Quantity Comments Source Sex Assigned At [facility] Tobacco Comment 2018-06-28 2018-06-[address] [facility] - 00:00:00 00:00:00 (SMOKED FOR [address] [id number] - [id number]) Alcohol Comment 2018-06-28 2018-06-[address] [facility] - 00:00:00 00:00:00 WEEKEND [facility] Center Smoking Status Start Date Stop Date Source Former smoker 2018-06-28 00:00:00 2018-06-28 00:00:00 [facility] Medications Ordered Filled Start Stop Current Ordering Indication Dosage Frequency Signature Comments Components Source Medication Medication Date Date Medication? Clinician (SIG) Name Name aspirin 81 2020- No blood clot 81mg QD Take [address] [facility] MG EC 09-15 prevention by mouth Dorcas es - tablet 13:56: 00:00 following daily. Med ical 50 :00 percutane Center s coronary interventio n sucralfate 2019- 2020- Yes 1g Q.25D Take [address] (CARAFATE) 09-15 09-10 mLs (1 g [facility] - 100 mg/mL 00:00: 23:59 total) by Me dical suspension 00 :00 mouth 4 Center (four) times daily for 30 days. pantoprazol 2019- 2020- Yes 20mg QD Take [address] [facility] [address] e 09-15 tablet (20 [facility] - (PROTONIX) 00:00: 23:59 mg total) M edical 20 MG 00 :00 by mouth Center tablet daily for 20 days. ondansetron 2019- Yes 4mg Take [address] [facility] [address] (ZOFRAN) 4 09-15 tablet (4 Dorcas es - MG tablet 00:00: 23:59 mg total) Me dical 00 :00 by mouth Center every 6 (six) hours for 7 days. erythromyci 2019-[address] [facility] n base 7-28 ONE-FOURTH [facility] - (E-MYCIN) 00:00: (02/08 ) OF Med ical 250 MG 00 A TABLET Center tablet BY MOUTH FOUR TIMES A DAY FOR 3 WEEKS, THEN STOP FOR 3 WEEKS BEFORE STARTING CYCLE AGAIN. simvastatin 2019- No 40mg QD Take [address] (ZOCOR) 40 07-16 tablet (40 Selina kes - MG tablet 00:00: 00:00 mg total) Me dical 00 :00 by mouth Center nightly. pantoprazol 2019- No 40mg Take [address] [facility] e 07-12 by mouth. [facility] - (PROTONIX) 00:00: 00:00 Medica l 40 MG 00 :00 Center tablet iron-multiv 2018- No 1{tbl} QD Take [address] itamins-min 07-01-24 tablet by Selina Machuca eralilian 00:00: 23:59 mouth Medical (THERAGRAN- 00 :[address] M) 9 mg 120 days. iron-400 mcg Tab tablet pantoprazol 2018- No 40mg Q.5D Take [address] e 07-01- tablet (40 [facility] - (PROTONIX) 00:00: 23:59 mg total) M edical 40 MG 00 :00 by mouth 2 Center tablet (two) times daily for 90 days. losartan Yes 50mg QD Take [address] (COZAAR) 50 5-24 by mouth Luke [facility] - MG tablet 21:42: daily. Medica l 07 Ceiba niacin Yes 500mg Take [address] [facility] [facility] (SLO-NIACIN 5-24 mg by [facility] - ) 500 mg 21:38: mouth 2 Medica l tablet 17 (two) Center times daily with breakfast and dinner. ezetimibe Yes excessive 10mg QD Take [address] (ZETIA) 10 5-24 fat in the by mouth [facility] - mg tablet 21:38: blood daily. Medic al 16 Ceiba Vital Signs Vital Name Observation Time Observation Value Comments Source Systolic blood 2019-09-16 16:00:00 130 mm[Hg] [facility] Diastolic blood 2019-09-16 16:00:00 59 mm[Hg] [facility] Heart rate 2019-09-16 16:00:00 96 /min [facility] Body temperature 2019-09-16 16:00:00 36.67 Niida [facility] Respiratory rate 2019-09-16 16:00:00 16 /min [facility] Oxygen saturation in 2019-09-16 16:00:00 100 /min [facility] - Arterial blood by Medical Ce nter Pulse oximetry Body height 2019-09-16 13:53:00 167.6 cm [facility] Body weight Measured 2019-09-16 13:53:00 63.504 kg [facility] BMI 2019-09-16 13:53:00 22.60 kg/m2 [facility] Procedures Procedure Date / Time Performed Performing Clinician Sour e PT/APTT 2019-09-16 14:32:00 [facility] LIPASE 2019-09-16 14:32:00 [facility] COMPREHENSIVE METABOLIC 2019-09-16 14:32:00 [facility] CBC W/PLT COUNT & AUTO 2019-09-16 14:32:00 [facility] Plan of Care Planned Activity Planned Date Details Comments Source Future Appointment 2019-10-23 15:00:00 Rao Weaver MD, [facility] - [address], [place] [address] Results Test Description Test Time Test Comments Results Result Comments Source Comprehensive metabolic panel 2019-09-16 15:40:00 Test Item Value Reference Range Interpretation Comme nts Protein, Total (test code 7.7 6.0- 8.3 gm/dL = 2885-2) Albumin (test code = 3.7 g/dL 3.5-5 79723-1) Alkaline Phosphatase (test 99 U/L 40-150 code = 6768-6) Total Bilirubin (test code 0.5 mg/dL 0.2-1.2 = 1975-2) Sodium (test code = 134 meq/L 136-145 L 2951-2) Potassium (test code = 3.0 meq/L 3.5-5.1 L 2823-3) Chloride (test code = 90 meq/L 98-107 L 2075-0) CO2 (test code = 8-9) 25 meq/L 22-29 BUN (test code = 3094-0) 16 mg/dL 7-21 Creatinine (test code = 1.01 mg/dL 0.57-1.25 2160-0) Glucose (test code = 72 mg/dL 70-105 2345-7) Calcium (test code = 9.8 mg/dL 8.4-10.2 61584-1) AST (test code = 1920-8) 15 U/L 5-34 ALT (test code = 1742-6) 9 U/L 6-55 EGFR (test code = 09217-8) I NSUFFICIENT CLINICAL DATA TO CALCULA TE ESTIMATED GFR. RAFAEL (test code = RAFAEL) Oncology Technician ID - DONIS C Lab Interpretation (test Abnormal code = 63762-5) [facility] [id number] 15:40:00 Test Item Value Reference Range Interpretation Comments TOTAL PROTEIN 7.7 gm/dL 6.0-8.3 (BEAKER) (test code = 770) ALBUMIN (BEAKER) 3.7 g/dL 3.5-5.0 (test code = 1145) ALKALINE PHOSPHATASE 99 U/L 40-150 (BEAKER) (test code = 346) BILIRUBIN TOTAL 0.5 mg/dL 0.2-1.2 (BEAKER) (test code = 377) SODIUM (BEAKER) (test 134 meq/L 136-145 L code = 381) POTASSIUM (BEAKER) 3.0 meq/L 3.5-5.1 L (test code = 379) CHLORIDE (BEAKER) 90 meq/L 98-107 L (test code = 382) CO2 (BEAKER) (test 25 meq/L 22-29 code = 355) BLOOD UREA NITROGEN 16 mg/dL 7-21 (BEAKER) (test code = 354) CREATININE (BEAKER) 1.01 mg/dL 0.57-1.25 (test code = 358) GLUCOSE RANDOM 72 mg/dL 70-105 (BEAKER) (test code = 652) CALCIUM (BEAKER) 9.8 mg/dL 8.4-10.2 (test code = 697) AST (SGOT) (BEAKER) 15 U/L 5-34 (test code = 353) ALT (SGPT) (BEAKER) 9 U/L 6-55 (test code = 347) EGFR (BEAKER) (test INSUFFIC IENT CLINICAL code = 1092) DATA TO CALCULA TE ESTIMATED GFR. Oncology Technician ID - DONIS [id number] 15:27:00 Test Item Value Reference Range Interpretation Comments Lipase (test code = 107 U/L 8-78 H 3040-3) RAFAEL (test code = RAFAEL) Oncology Technician ID - DONIS C Lab Interpretation (test Abnormal code = 65064-6) [facility] 15:27:00 Test Item Value Reference Range Interpretation Comments LIPASE (BEAKER) (test code = 749) 107 U/L 8-78 H Oncology Technician ID - DONIS CPT/[id number] 15:21:00 Test Item Value Reference Range Interpretation Comments Protime (test code = 14.1 11.9- 14.2 5902-2) seconds INR (test code = 1.12 <=5.90 6301-6) PTT (test code = 39.8 22.5- 36.0 H 80981-7) seconds RAFAEL (test code = RAFAEL) Effective 2018: PT Reference Range ChangeNew: 11.9-14.2 Previous: 11.7-14.7 RECOMMENDED COUMADIN/WARFARIN INR THERAPY RANGESSTANDARD DOSE: 2.0-3.0 Includes: PROPHYLAXIS for venous thrombosis, systemic embolization; TREATMENT for venous thrombosis and/or pulmonary embolus.HIGH RISK: Target INR is 2.5-3.5 for patients wiht mechanical heart valves. Lab Interpretation Abnormal (test code = 62392-8) [facility]/[id number] 15:21:00 Test Item Value Reference Range Interpretation Comments PROTIME (BEAKER) (test code = 14.1 seconds 11.9-14.2 759) INR (BEAKER) (test code = 370) 1.12 <=5.90 PARTIAL THROMBOPLASTIN TIME 39.8 seconds 22.5-36.0 H (BEAKER) (test code = 760) Effective 2018: PT Reference Range ChangeNew: 11.9-14.2 Previous: 11.7- 14.7RECOMMENDED COUMADIN/WARFARIN INR THERAPY RANGESSTANDARD DOSE: 2.0-3.0 Includes: PROPHYLAXIS for venous thrombosis, systemic embolization; TREATMENT for venous thrombosis and/or pulmonary embolus.HIGH RISK: Target INR is2.5-3.5 for patients wiht mechanical heart valves.CBC with platelet count + automated [id number] 15:16:00 Test Item Value Reference Range Interpretation Comments WBC (test code = 6690-2) 11.5 3.5- 10.5 K/L H RBC (test code = 789-8) 4.78 4.63- 6.08 M/L MCHC (test code = 786-4) 33.7 32.3- 36.5 GM/DL L Hematocrit (test code = 4544-3) 40.4 % 40.1-51 MCV (test code = 787-2) 84.5 fL 79-92.2 MCH (test code = 785-6) 28.5 pg 25.7-32.2 RDW (test code = 788-0) 12.8 % 11.6-14.4 Platelets (test code = 777-3) 375 150- 450 K/CU MM MPV (test code = 39701-0) 9.5 fL 9.4-12.4 nRBC (test code = 413) 0 0- 0 /100 WBC % Neutros (test code = 429) 81 % % Lymphs (test code = 430) 10 % % Monos (test code = 431) 8 % % Eos (test code = 432) 0 % % Baso (test code = 437) 0 % # Neutros (test code = 670) 9.37 1.78- 5.38 K/L H # Lymphs (test code = 414) 1.16 1.32- 3.57 K/L L # Monos (test code = 415) 0.89 0.30- 0.82 K/L H # Eos (test code = 416) 0.04 0.04- 0.54 K/L # Baso (test code = 417) 0.02 0.01- 0.08 K/L Immature Granulocytes-Relative 0 % 0-1 (test code = 2801) Lab Interpretation (test code = Abnormal 79249-9) [facility] & AUTO [id number] 15:16:00 Test Item Value Reference Range Interpretation Comments WHITE BLOOD CELL COUNT (BEAKER) 11.5 K/ L 3.5-10.5 H (test code = 775) RED BLOOD CELL COUNT (BEAKER) 4.78 M/ L 4.63-6.08 (test code = 761) HEMOGLOBIN (BEAKER) (test code = 13.6 GM/DL 13.7-17.5 L 410) HEMATOCRIT (BEAKER) (test code = 40.4 % 40.1-51.0 411) MEAN CORPUSCULAR VOLUME (BEAKER) 84.5 fL 79.0-92.2 (test code = 753) MEAN CORPUSCULAR HEMOGLOBIN 28.5 pg 25.7-32.2 (BEAKER) (test code = 751) MEAN CORPUSCULAR HEMOGLOBIN CONC 33.7 GM/DL 32.3-36.5 (BEAKER) (test code = 752) RED CELL DISTRIBUTION WIDTH 12.8 % 11.6-14.4 (BEAKER) (test code = 412) PLATELET COUNT (BEAKER) (test 375 K/CU MM 150-450 code = 756) MEAN PLATELET VOLUME (BEAKER) 9.5 fL 9.4-12.4 (test code = 754) NUCLEATED RED BLOOD CELLS 0 /100 WBC 0-0 (BEAKER) (test code = 413) NEUTROPHILS RELATIVE PERCENT 81 % (BEAKER) (test code = 429) LYMPHOCYTES RELATIVE PERCENT 10 % (BEAKER) (test code = 430) MONOCYTES RELATIVE PERCENT 8 % (BEAKER) (test code = 431) EOSINOPHILS RELATIVE PERCENT 0 % (BEAKER) (test code = 432) BASOPHILS RELATIVE PERCENT 0 % (BEAKER) (test code = 437) NEUTROPHILS ABSOLUTE COUNT 9.37 K/ L 1.78-5.38 H (BEAKER) (test code = 670) LYMPHOCYTES ABSOLUTE COUNT 1.16 K/ L 1.32-3.57 L (BEAKER) (test code = 414) MONOCYTES ABSOLUTE COUNT (BEAKER) 0.89 K/ L 0.30-0.82 H (test code = 415) EOSINOPHILS ABSOLUTE COUNT 0.04 K/ L 0.04-0.54 (BEAKER) (test code = 416) BASOPHILS ABSOLUTE COUNT (BEAKER) 0.02 K/ L 0.01-0.08 (test code = 417) IMMATURE GRANULOCYTES-RELATIVE 0 % 0-1 PERCENT (BEAKER) (test code = 2801) CBC W/PLT COUNT & AUTO [id number] 08:52:00 Test Item Value Reference Range Interpretation Comments WHITE BLOOD CELL COUNT (BEAKER) 10.1 K/ L 3.5-10.5 (test code = 775) RED BLOOD CELL COUNT (BEAKER) 3.22 M/ L 4.63-6.08 L (test code = 761) HEMOGLOBIN (BEAKER) (test code = 9.8 GM/DL 13.7-17.5 L 410) HEMATOCRIT (BEAKER) (test code = 29.5 % 40.1-51.0 L 411) MEAN CORPUSCULAR VOLUME (BEAKER) 91.6 fL 79.0-92.2 (test code = 753) MEAN CORPUSCULAR HEMOGLOBIN 30.4 pg 25.7-32.2 (BEAKER) (test code = 751) MEAN CORPUSCULAR HEMOGLOBIN CONC 33.2 GM/DL 32.3-36.5 (BEAKER) (test code = 752) RED CELL DISTRIBUTION WIDTH 15.3 % 11.6-14.4 H (BEAKER) (test code = 412) PLATELET COUNT (BEAKER) (test 241 K/CU MM 150-450 code = 756) MEAN PLATELET VOLUME (BEAKER) 10.3 fL 9.4-12.4 (test code = 754) NUCLEATED [...] (test code = 437) NEUTROPHILS ABSOLUTE COUNT 6.99 K/ L 1.78-5.38 H (BEAKER) (test code = 670) LYMPHOCYTES ABSOLUTE COUNT 1.98 K/ L 1.32-3.57 (BEAKER) (test code = 414) MONOCYTES ABSOLUTE COUNT (BEAKER) 0.65 K/ L 0.30-0.82 (test code = 415) EOSINOPHILS ABSOLUTE COUNT 0.27 K/ L 0.04-0.54 (BEAKER) (test code = 416) BASOPHILS ABSOLUTE COUNT (BEAKER) 0.04 K/ L 0.01-0.08 (test code = 417) IMMATURE GRANULOCYTES-RELATIVE 2 % 0-1 H PERCENT (BEAKER) (test code = 2801) BASIC METABOLIC [id number] 06:41:00 Test Item Value Reference Range Interpretation [...] ESTIMATED GFR. CBC W/PLT COUNT & AUTO [id number] 20:31:00 Test Item Value Reference Range Interpretation [...] = 2801) CBC W/PLT COUNT & AUTO [id number] 09:40:00 Test Item Value Reference Range Interpretation [...] (BEAKER) (test code = 2801) BASIC METABOLIC [id number] 06:50:00 Test Item Value Reference Range Interpretation [...] ESTIMATED GFR. CBC W/PLT COUNT & AUTO [id number] 23:23:00 Test Item Value Reference Range Interpretation [...] = 2801) CBC W/PLT COUNT & AUTO [id number] 10:14:00 Test Item Value Reference Range Interpretation [...] (BEAKER) (test code = 2801) BASIC METABOLIC [id number] 06:07:00 Test Item Value Reference Range Interpretation [...] m DATA TO CALCULA TE ESTIMATED GFR. [id number] 05:59:00 Test Item Value Reference Range Interpretation [...] Can do this with the next CBCPROTHROMBIN [id number] 05:10:00 Test Item Value Reference Range Interpretation [...] PERCENT (BEAKER) (test code = 2801) TROPONIN [id number] 17:24:00 Test Item Value Reference Range Interpretation [...] = 2801) CBC W/PLT COUNT & AUTO [id number] 10:51:00 Test Item Value Reference Range Interpretation [...] PERCENT (BEAKER) (test code = 2801) TISSUE [id number] 08:07:00Surgical Pathology Report Case: [id number] Authorizing Provider: Marilee Lane MD Collected: 06/27/2018 1124 Ordering Location: [place] [address] ICU Received: 06/27/2018 1528 Pathologist: Binu Magallon MD Specimen: Biopsy, Gastric, random gastric body and antrum PART A RANDOM GASTRIC BIOPSY:ANTRAL MUCOSA WITH FOCALLY ACTIVE CHRONIC GASTRITIS.OXYNTIC MUCOSA WITH MILD CHRONIC IN ACTIVE GASTRITIS.NEGATIVE FOR INTESTINAL METAPLASIA, DYSPLASIA, OR INVASIVE CARCINOMA.HELICOBACTER ORGANISMS ARE IDENTIFIED ON WARTHIN STARRY SPECIAL STAIN. Signing Pathologist Direct Phone Line: [phone] signed by Binu Magallon MD on 06/28/2018 at 8:07 [id number], [id number] and postop diagnosis: melenaBiopsy, gastric, random gastric [...] evaluated Immunohistochemistry technical testing was performed at [facility], Pathology Laboratory where it was [...] Can do this with the next CBCPROTHROMBIN [id number] 04:34:00 Test Item Value Reference Range Interpretation Comments PROTIME (BEAKER) (test code = 14.2 seconds 11.7-14.7 759) INR (BEAKER) (test code = 370) 1.2 <=5.9 RECOMMENDED COUMADIN/WARFARIN INR THERAPY RANGESSTANDARD DOSE: 2.0 - 3.0 Includes: PROPHYLAXIS forvenous thrombosis, systemic embolization; TREATMENT for venous thrombosis and/or pulmonary embolus.HIGH RISK: Target INR is 2.5-3.5 for patients with mechanical heart valves.BASIC METABOLIC [id number] 04:29:00 Test Item Value Reference Range Interpretation [...] ESTIMATED GFR. CBC W/PLT COUNT & AUTO [id number] 23:50:00 Test Item Value Reference Range Interpretation [...] PERCENT (BEAKER) (test code = 2801) TROPONIN [id number] 14:18:00 Test Item Value Reference Range Interpretation [...] acidosis, acute neurological disease, and persistent tachyarrhythmia.RETICULOCYTE [id number] 03:26:00 Test Item Value Reference Range Interpretation Comments RETICULOCYTE COUNT PCT (BEAKER) (test 2.8 % 0.5-1.8 H code = 575) RAD, CHEST, 1 VIEW, NON [id number] 03:04:00Reason for exam:->gibShould this be performed at [...] MDReport Verified Date/Time: 06/27/2018 03:04:43 Reading Location: [address] Reading Room COMPREHENSIVE METABOLIC PANEL 2018-06-27 [...] DATA T O CALCULATE ESTIM ATED GFR. [id number] 02:43:00 Test Item Value Reference Range Interpretation [...] 2.5-3.5 for patients with mechanical heart valves.PROTHROMBIN [id number] 02:42:00 Test Item Value Reference Range Interpretation Comments PROTIME (BEAKER) (test code = 15.1 seconds 11.7-14.7 H 759) INR (BEAKER) (test code = 370) 1.3 <=5.9 RECOMMENDED COUMADIN/WARFARIN INR THERAPY RANGESSTANDARD DOSE: 2.0 - 3.0 Includes: PROPHYLAXIS forvenous thrombosis, systemic embolization; TREATMENT for venous thrombosis and/or pulmonary embolus.HIGH RISK: Target INR is 2.5-3.5 for patients with mechanical heart valves.LACTIC ACID, [id number] 02:39:00 Test Item Value Reference Range Interpretation Comments LACTATE BLOOD VENOUS (2) (BEAKER) 0.9 mmol/L 0.5-2.2 (test code = 2872) CBC W/PLT COUNT & AUTO [id number] 02:25:00 Test Item Value Reference Range Interpretation [...] % 0-1 PERCENT (BEAKER) (test code = 0870)
[2019-09-22] MEDS ORDERED: NA CHLORIDE 0.9% 2,000 ML ONE (19:31)
[2019-09-22] MEDS ORDERED: ONDANSETRON 4 MG/2 ML VIAL ONE (19:51)
[2019-09-22 19:56] LABS: Absolute Lymphocytes (CBC) 1.4 K/uL (0.7-4.9); Basophils % 0.3 % (0-1.3); Lymphocytes % 12.4 % (15.3-44.8); MPV 8.6 fL (7.6-11.3); RBC Red Blood Cell Count 4.82 M/uL (4.33-5.43)
--- NOTE | 2019-09-22 20:05 | RAD REPORT ---
EXAM DESCRIPTION: RAD - Chest Single View - 09/22/2019 7:57 pm CLINICAL HISTORY: syncope Chest pain. COMPARISON: Chest Single View dated 06/26/2018; Chest Single View dated 07/18/2015; ABDOMEN 1 VIEW KUB dated 10/02/2012; ABDOMEN 1 VIEW KUB dated 08/27/2012 FINDINGS: Portable technique limits examination quality. The lungs are grossly clear. The heart is normal in size. No displaced fractures. IMPRESSION: No acute intrathoracic process suspected.
[2019-09-22] MEDS ORDERED: PANTOPRAZOLE 40 MG INJ ONE ×3 (20:09→20:32)
[2019-09-22] MEDS ORDERED: OCTREOTIDE ACETATE 100 MCG/ML ONE ×2 (20:10→20:18)
[2019-09-22] MEDS ORDERED: NA CHLORIDE 0.9% 500 ML ONE ×2 (20:18→20:32)
[2019-09-22] MEDS ORDERED: NA CHLORIDE 0.9% 250 ML ONE (20:18)
[2019-09-22] MEDS ORDERED: OCTREOTIDE ACETATE 500 MCG/ML ONE (20:26)
[2019-09-22 20:48] LABS: Protime INR 1.16
[2019-09-22 21:08] LABS: ALT/SGPT 13 U/L (12-78); AST/SGOT 11 U/L (15-37); Albumin 2.6 g/dL (3.4-5.0); Alkaline Phosphatase 81 U/L (45-117); BUN Blood Urea Nitrogen 47 mg/dL (7-18); Bicarbonate 23 mmol/L (21-32); Bilirubin Direct 0.1 mg/dL (0-0.2); Bilirubin Total 0.4 mg/dL (0.2-1.0); Glucose Level 126 mg/dL (74-106); NT PRO-BNP 68 pg/mL (<125); Protein, Total 6.9 g/dL (6.4-8.2); Sodium Level 132 mmol/L (136-145); Troponin (Emerg Dept Use Only) < 0.02 ng/mL (0.0-0.045)
[2019-09-22 21:18] LABS: Potassium 2.5 mmol/L (3.5-5.1)
[2019-09-22] MEDS ORDERED: NA CHLORIDE 0.9% 1,000 ML ONE (22:00)
[2019-09-22] MEDS ORDERED: KCL 20 MEQ/100 mL IVPB 20 MEQ/100 ML BAG IV ONE (22:00)
--- NOTE | 2019-09-23 00:57 | ER ---
Nurse's Notes [facility] Name: Mp Moreno Age: 64 yrs Sex: Male : 1955 Arrival Date: 09/22/2019 Time: 19:13 Bed 19 Private MD: Diagnosis: Acute kidney failure;Gastrointestinal hemorrhage, unspecified;Dehydration;Hypokalemia Presentation: 09/21 19:14 Chief complaint: EMS states: Called for a syncopal episode. History of GI problem for [address] Vieira, and was on their way to see a GI doc in [place], Dr. Macedo, when the near syncopal episode happen. Hx of GI bleed and Hx of DC. Coronavirus screen: Client denies travel out of the [place] in the last 14 days. At this time, the client does not indicate any symptoms associated with coronavirus-19. Ebola Screen: Patient negative for fever greater than or equal to 101.5 degrees Fahrenheit, and additional compatible Ebola Virus Disease symptoms Patient denies exposure to infectious person. Patient denies travel to an Ebola-affected area in the 21 days before illness onset. No symptoms or risks identified at this time. Initial Sepsis Screen: Does the patient meet any 2 criteria? No. Patient's initial sepsis screen is negative. Does the patient have a suspected source of infection? No. Patient's initial sepsis screen is negative. Risk Assessment: Do you want to hurt yourself or someone else? Patient reports no desire to harm self or others. Onset of symptoms was September 22, 2019. 19:14 Method Of Arrival: EMS: [facility] ca1 19:14 Acuity: ANTONETTE 2 ca1 Historical: - Allergies: 19:18 NKDA; ca1 - Home Meds: 23:36 losartan 50 mg Oral tab 1 tab once daily for Hypertension [Active]; niacin 500 mg Oral mt2 cpER 1 caps nightly for Hyperlipidemia [Active]; ezetimibe Oral 1 tab once daily for Hyperlipidemia [Active]; simvastatin 40 mg Oral tab 1 tab once daily [Active]; sucralfate 1 gram Oral tab 1 tab 4 times per day for Gastroesophageal Reflux [Active]; erythromycin 250 mg Oral cpDR 1 cap 4 times per day [Active]; - PMHx: 19:18 High Cholesterol; Hyperlipidemia; Hypertension; Kidney stones; Myocardial infarction; ca1 PUD; - Immunization history:: Adult Immunizations up to date. - Social history:: Smoking status: Patient/guardian denies using tobacco, the patient reports quitting approximately 5 years ago. Screenin:30 Abuse screen: Denies threats or abuse. Nutritional screening: No deficits noted. mt2 Nutritional screening: Has had N/V for 3 or more days. Tuberculosis screening: No symptoms or risk factors identified. Fall Risk None identified. Assessment: 19:15 Reassessment: Patient and/or family updated on plan of care and expected duration. Pain mt2 level reassessed. Patient is alert, oriented x 3, equal unlabored respirations, skin warm/dry/pink. PT IS HYPOTENSIVE UPON ARRIVAL. WILL INSERT IV AND BOLUS PT. General: Appears distressed, uncomfortable, Behavior is restless. Pain: Denies pain. Neuro: Reports dizziness. Cardiovascular: HPOTENSIVE. Respiratory: No deficits noted. GI: Reports nausea. : No deficits noted. EENT: No deficits noted. EENT: No deficits noted. Derm: No deficits noted. Musculoskeletal: Reports. 20:00 Reassessment: Patient and/or family updated on plan of care and expected duration. Pain mt2 level reassessed. Patient is alert, oriented x 3, equal unlabored respirations, skin warm/dry/pink. BLOOD PRESSURE IMPROVING WITH FLUID BOLUS. General: Appears uncomfortable, Behavior is cooperative. Pain: Denies pain. 21:00 Reassessment: Patient and/or family updated on plan of care and expected duration. Pain mt2 level reassessed. Patient is alert, oriented x 3, equal unlabored respirations, skin warm/dry/pink. Patient states symptoms have improved. General: Appears uncomfortable, Behavior is cooperative. Pain: Denies pain. 22:00 Reassessment: Patient and/or family updated on plan of care and expected duration. Pain mt2 level reassessed. Patient is alert, oriented x 3, equal unlabored respirations, skin warm/dry/pink. PT B/P HAS IMPROVED. DENIES PAIN. General: Appears comfortable, Behavior is cooperative. Pain: Denies pain. 23:00 Reassessment: Patient and/or family updated on plan of care and expected duration. Pain mt2 level reassessed. Patient is alert, oriented x 3, equal unlabored respirations, skin warm/dry/pink. Patient denies pain at this time. General: Appears comfortable, Behavior is cooperative. 09/22 00:00 Reassessment: Patient and/or family updated on plan of care and expected duration. Pain mt2 level reassessed. Patient is alert, oriented x 3, equal unlabored respirations, skin warm/dry/pink. Patient states symptoms have improved. General: Appears comfortable, Behavior is cooperative. Pain: Denies pain. 01:00 Reassessment: Patient and/or family updated on plan of care and expected duration. Pain mt2 level reassessed. Patient is alert, oriented x 3, equal unlabored respirations, skin warm/dry/pink. General: Appears in no apparent distress. comfortable, Behavior is cooperative. 01:15 Reassessment: REPORT GIVEN TO TAMMY RICHARDSON AT [facility]. mt2 02:10 Reassessment: EMS AT BEDSIDE READY TO TRANSFER PT TO [facility]. mt2 Vital Signs: 09/21 19:08 BP 77 / 57; Pulse 89; Resp 16; Pulse Ox 97% on R/A; Pain 0/10; mt2 19:14 BP 77 / 57; Pulse 84; Resp 18 S; Temp 97.7(O); Pulse Ox 97% on R/A; Weight 47.63 kg ca1 (R); Height 5 ft. 8 in. (172.72 cm) (R); Pain 0/10; 20:00 BP 103 / 60; Pulse 79; Resp 16; Pulse Ox 97% ; Pain 0/10; mt2 21:00 BP 99 / 65; Pulse 76; Resp 16; Pulse Ox 100% on R/A; Pain 0/10; mt2 22:00 BP 113 / 79; Pulse 79; Resp 17; Pulse Ox 97% on R/A; Pain 0/10; mt2 23:00 BP 113 / 76; Pulse 74; Resp 16; Temp 97.8(TE); Pulse Ox 99% on R/A; Pain 0/10; mt2 09/22 00:00 BP 115 / 69; Pulse 71; Resp 14; Pulse Ox 99% on R/A; Pain 0/10; mt2 01:00 BP 101 / 61; Pulse 73; Resp 15; Pulse Ox 99% on R/A; Pain 0/10; mt2 02:00 BP 114 / 73; Pulse 74; Resp 16; Temp 98.0(TE); Pulse Ox 99% on R/A; Pain 0/10; mt2 09/21 19:14 Body Mass Index 15.97 (47.63 kg, 172.72 cm) ca1 Vitals: 00:00 Cardiac Rhythm Assessment Sinus rhythm. mt2 ED Course: 09/21 19:13 Patient arrived in ED. ca1 19:17 Triage completed. ca1 19:17 Annemarie Gale RN is Primary Nurse. mt2 19:18 Arm band placed on right wrist. ca1 19:24 Cristóbal Wilkinson PA is PHCP. jr8 19:24 Isidro Irizarry MD is Attending Physician. jr8 19:30 Bed in low position. Call light in reach. Side rails up X 1. mt2 19:30 Inserted saline lock: 20 gauge in left hand, using aseptic technique. Blood collected. mt2 19:33 Annemarie Gale RN is Primary Nurse. mt2 19:44 Initial lab(s) drawn, by ED staff, sent to lab. Inserted saline lock: 20 gauge EJ, mt2 using aseptic technique. Blood collected. 19:57 XRAY Chest (1 view) In Process Unspecified. EDMS 22:19 CT Abd/Pelvis - Without Contrast In Process Unspecified. EDMS 22:26 Basic Metabolic Panel Sent. mt2 22:26 CBC with Diff Sent. mt2 22:59 Served as a seat scooper machine during rectal exam. mt2 08 02:23 Patient transferred, IV remains in place. mt2 Administered Medications: 09/21 20:00 Drug: Zofran (Ondansetron) 4 mg Route: IVP; Site: left hand; mt2 20:20 Follow up: Response: No adverse reaction; Nausea is decreased mt2 20:01 Drug: ProTONIX 40 mg Route: IVP; Site: left hand; mt2 20:30 Follow up: Response: No adverse reaction mt2 20:01 Drug: Octreotide 25 mcg Route: IV; Rate: calculated rate; Site: left hand; mt2 21:00 Follow up: Response: No adverse reaction; IV Status: Completed infusion mt2 20:30 Drug: ProTONIX 8 mg/hr Route: IV; Rate: 25 ml/hr; Site: left hand; mt2 09/22 02:26 Follow up: Response: No adverse reaction; IV Status: Infusion continued upon transfer ks2 09/21 20:30 Drug: Octreotide Infusion (50 mcg/hr) - (Octreotide 500 mcg, NS 0.9% 500 ml) Route: IV; ks2 Rate: 50 ml/hr; Site: left jugular; 09/22 02:26 Follow up: Response: No adverse reaction; IV Status: Infusion continued upon transfer ks2 09/21 22:25 Drug: NS 0.9% 1000 ml Route: IV; Rate: 75 ml/hr; Site: left jugular; ks2 09/22 02:25 Follow up: IV Status: Infusion continued upon transfer ks2 09/21 22:26 Drug: Potassium Chloride 20 mEq Route: IV; Rate: calculated rate; Site: left jugular; ks2 09/22 00:23 Follow up: Response: No adverse reaction; IV Status: Completed infusion mt2 Outcome: 00:57 ER care complete, transfer ordered by MD. almanzar 02:23 Transferred by ground EMS to [facility], Transfer form completed. mt2 02:23 Condition: stable 02:23 Instructed on the need for transfer. 02:27 Patient left the ED. mt2 Signatures: Dispatcher [employer] EDMS Cristóbal Wilkinson PA PA jr8 Jahaira Sahni RN RN ca1 Annemarie Gale RN RN mt2 Corrections: (The following items were deleted from the chart) 00:20 09/21 23:00 BP 113 / 76; Pulse 74bpm; Resp 76bpm; Pulse Ox 99% RA; Temp 97.8F Temporal; mt2 Pain 0/10; mt2
--- NOTE | 2019-09-23 00:57 | EDPHYS ---
Physician Documentation [facility] Name: Mp Moreno Age: 64 yrs Sex: Male : 1955 Arrival Date: 09/22/2019 Time: 19:13 Bed 19 Private MD: ED Physician Isidro Irizarry HPI: 09/21 21:57 This 64 yrs old Male presents to ER via EMS with complaints of Near Syncope. jr8 21:57 The patient has experienced syncope, became unresponsive, collapsed. Onset: The jr8 symptoms/episode began/occurred acutely, today. Duration: This was a single episode, that lasted an unknown period of time. Context: the episode(s) was witnessed, by family, occurred at home. Associated injury: The patient did not suffer any apparent associated injury. Associated signs and symptoms: Pertinent positives: abdominal pain. Current symptoms: Currently, the patient is not experiencing any symptoms, the patient feels back to baseline. The patient has not experienced similar symptoms in the past. The patient has been recently seen by a physician:. Patient stated that he has been having upper abdominal pain for past few months. Stated that he was on his way to see GI physician today when he had syncopal episode. Patient hypotensive upon arrival. Patient with blood tinged vomitus noted in emesis bag . Historical: - Allergies: 19:18 NKDA; ca1 - Home Meds: 23:36 losartan 50 mg Oral tab 1 tab once daily for Hypertension [Active]; niacin 500 mg Oral mt2 cpER 1 caps nightly for Hyperlipidemia [Active]; ezetimibe Oral 1 tab once daily for Hyperlipidemia [Active]; simvastatin 40 mg Oral tab 1 tab once daily [Active]; sucralfate 1 gram Oral tab 1 tab 4 times per day for Gastroesophageal Reflux [Active]; erythromycin 250 mg Oral cpDR 1 cap 4 times per day [Active]; - PMHx: 19:18 High Cholesterol; Hyperlipidemia; Hypertension; Kidney stones; Myocardial infarction; ca1 PUD; - Immunization history:: Adult Immunizations up to date. - Social history:: Smoking status: Patient/guardian denies using tobacco, the patient reports quitting approximately 5 years ago. ROS: 21:57 Eyes: Negative for injury, pain, redness, and discharge, ENT: Negative for injury, jr8 pain, and discharge, Neck: Negative for injury, pain, and swelling, Cardiovascular: Negative for chest pain, palpitations, and edema, Respiratory: Negative for shortness of breath, cough, wheezing, and pleuritic chest pain, Back: Negative for injury and pain, MS/Extremity: Negative for injury and deformity, Skin: Negative for injury, rash, and discoloration. 21:57 Abdomen/GI: Positive for abdominal pain, nausea and vomiting, hematemesis. 21:57 Neuro: Positive for syncope. Exam: 21:57 Eyes: Pupils equal round and reactive to light, extra-ocular motions intact. Lids and jr8 lashes normal. Conjunctiva and sclera are non-icteric and not injected. Cornea within normal limits. Periorbital areas with no swelling, redness, or edema. ENT: Nares patent. No nasal discharge, no septal abnormalities noted. Tympanic membranes are normal and external auditory canals are clear. Oropharynx with no redness, swelling, or masses, exudates, or evidence of obstruction, uvula midline. Mucous membranes moist. Neck: Trachea midline, no thyromegaly or masses palpated, and no cervical lymphadenopathy. Supple, full range of motion without nuchal rigidity, or vertebral point tenderness. No Meningismus. Cardiovascular: Regular rate and rhythm with a normal S1 and S2. No gallops, murmurs, or rubs. Normal PMI, no JVD. No pulse deficits. Respiratory: Lungs have equal breath sounds bilaterally, clear to auscultation and percussion. No rales, rhonchi or wheezes noted. No increased work of breathing, no retractions or nasal flaring. Back: No spinal tenderness. No costovertebral tenderness. Full range of motion. Skin: Warm, dry with normal turgor. Normal color with no rashes, no lesions, and no evidence of cellulitis. MS/ Extremity: Pulses equal, no cyanosis. Neurovascular intact. Full, normal range of motion. Neuro: Awake and alert, GCS 15, oriented to person, place, time, and situation. Cranial nerves II-XII grossly intact. Motor strength 5/5 in all extremities. Sensory grossly intact. Cerebellar exam normal. Normal gait. 21:57 Abdomen/GI: Inspection: abdomen appears normal, Bowel sounds: active, all quadrants, Palpation: soft, in all quadrants, mild abdominal tenderness, in the epigastric area, mass, is not appreciated, rebound tenderness, is not appreciated, voluntary guarding, is not appreciated, involuntary guarding, is not appreciated, no appreciated organomegaly, Indicators: McBurney's point is not tender, Casillas's sign is negative, Rovsing's sign is negative, Liver: tenderness, is not appreciated. 22:51 Abdomen/GI: Rectal exam: Prostate: normal, rectal tone normal, Stool: brown, guaiac jr8 positive, hemorrhoid(s), are not appreciated, mass, is not appreciated, swelling, is not appreciated, tenderness, is not appreciated, the exam is chaperoned by the nurse. Vital Signs: 19:08 BP 77 / 57; Pulse 89; Resp 16; Pulse Ox 97% on R/A; Pain 0/10; mt2 19:14 BP 77 / 57; Pulse 84; Resp 18 S; Temp 97.7(O); Pulse Ox 97% on R/A; Weight 47.63 kg ca1 (R); Height 5 ft. 8 in. (172.72 cm) (R); Pain 0/10; 20:00 BP 103 / 60; Pulse 79; Resp 16; Pulse Ox 97% ; Pain 0/10; mt2 21:00 BP 99 / 65; Pulse 76; Resp 16; Pulse Ox 100% on R/A; Pain 0/10; mt2 22:00 BP 113 / 79; Pulse 79; Resp 17; Pulse Ox 97% on R/A; Pain 0/10; mt2 23:00 BP 113 / 76; Pulse 74; Resp 16; Temp 97.8(TE); Pulse Ox 99% on R/A; Pain 0/10; mt2 0818 00:00 BP 115 / 69; Pulse 71; Resp 14; Pulse Ox 99% on R/A; Pain 0/10; mt2 01:00 BP 101 / 61; Pulse 73; Resp 15; Pulse Ox 99% on R/A; Pain 0/10; mt2 02:00 BP 114 / 73; Pulse 74; Resp 16; Temp 98.0(TE); Pulse Ox 99% on R/A; Pain 0/10; mt2 09/21 19:14 Body Mass Index 15.97 (47.63 kg, 172.72 cm) ca1 MDM: 09/21 19:24 Patient medically screened. jr8 22:51 Data reviewed: vital signs, nurses notes, lab test result(s), EKG, radiologic studies, [facility] CT scan, plain films. Data interpreted: Pulse oximetry: on room air is 97 %. Interpretation: normal. Counseling: I had a detailed discussion with the patient and/or guardian regarding: the historical points, exam findings, and any diagnostic results supporting the discharge/admit diagnosis, lab results, radiology results, the need to transfer to another facility, [facility] does not immediately have the required specialist. 09/22 00:09 ED course: Spoke with Hospitalist at [facility] who accepted to Telemetry floor. jr They are having trouble getting a hold of GI. Pending there call back still for that . 00:55 ED course: [facility] called back 12:[address] Hernandez. Accepted patient for [facility] transfer . 09/21 19:25 Order name: Basic Metabolic Panel [facility] 09/21 19:25 Order name: CBC with Diff [facility] 09/21 19:25 Order name: LFT's; Complete Time: 21:25 [facility] 09/21 19:25 Order name: Magnesium; Complete Time: 21:25 09/21 19:25 Order name: NT PRO-BNP; Complete Time: 21:25 [facility] 09/21 19:25 Order name: PT-INR; Complete Time: 21:02 09/21 19:25 Order name: Troponin (emerg Dept Use Only); Complete Time: 21:25 09/21 19:25 Order name: XRAY Chest (1 view); Complete Time: 20:28 09/21 19:25 Order name: TS; Complete Time: 22:33 09/21 19:26 Order name: Basic Metabolic Panel; Complete Time: 21:25 EDMS 09/21 19:26 Order name: CBC with Automated Diff; Complete Time: 20:28 EDMS 09/21 21:27 Order name: CT Abd/Pelvis - Without Contrast 09/21 19:25 Order name: EKG; Complete Time: 19:26 09/21 19:25 Order name: Cardiac monitoring; Complete Time: 20:01 09/21 19:25 Order name: EKG - Nurse/Tech; Complete Time: 20:01 09/21 19:25 Order name: IV Saline Lock; Complete Time: 20: [facility] 09/21 19:25 Order name: Labs collected and sent; Complete Time: 20: [facility] 09/21 19:25 Order name: O2 Per Protocol; Complete Time: : 09/21 19:25 Order name: O2 Sat Monitoring; Complete Time: : Administered Medications: 09/21 20:00 Drug: Zofran (Ondansetron) 4 mg Route: IVP; Site: left hand; [facility] 20:20 Follow up: Response: No adverse reaction; Nausea is decreased mt2 20:01 Drug: ProTONIX 40 mg Route: IVP; Site: left hand; [facility] 20:30 Follow up: Response: No adverse reaction [facility] 20:01 Drug: Octreotide 25 mcg Route: IV; Rate: calculated rate; Site: left hand; [facility] 21:00 Follow up: Response: No adverse reaction; IV Status: Completed infusion [facility] 20:30 Drug: ProTONIX 8 mg/hr Route: IV; Rate: 25 ml/hr; Site: left hand; [facility] 09/22 02:26 Follow up: Response: No adverse reaction; IV Status: Infusion continued upon transfer [facility] 09/21 20:30 Drug: Octreotide Infusion (50 mcg/hr) - (Octreotide 500 mcg, NS 0.9% 500 ml) Route: IV; [facility] Rate: 50 ml/hr; Site: left jugular; 09/22 02:26 Follow up: Response: No adverse reaction; IV Status: Infusion continued upon transfer [facility] 09/21 22:25 Drug: NS 0.9% 1000 ml Route: IV; Rate: 75 ml/hr; Site: left jugular; [facility] 09/22 02:25 Follow up: IV Status: Infusion continued upon transfer [facility] 09/21 22:26 Drug: Potassium Chloride 20 mEq Route: IV; Rate: calculated rate; Site: left jugular; [facility] 09/22 00:23 Follow up: Response: No adverse reaction; IV Status: Completed infusion [facility] Disposition: 10:48 Co-signature as Attending Physician, Isidro HUGHES I agree with the assessment and [place] plan of care. Disposition: 09/23/19 00:57 Transfer ordered to [facility]. Diagnosis are Acute kidney failure, Gastrointestinal hemorrhage, unspecified, Dehydration, Hypokalemia. - Reason for transfer: Higher level of care. - Accepting physician is [facility]. - Condition is Stable. - Problem is new. - Symptoms have improved. Signatures: Dispatcher [employer] EDIsidro Price MD MD cha Roszak, Josh, PA PA jr8 Jahaira Sahni RN RN ca1 Annemarie Gale RN RN mt2 Corrections: (The following items were deleted from the chart) 02:27 00:57 09/23/2019 00:57 Transfer ordered to [facility]. mt2 Diagnosis is Acute kidney failure; Gastrointestinal hemorrhage, unspecified; Dehydration; Hypokalemia. Reason for transfer: Higher level of care. Accepting physician is [facility]. Condition is Stable. Problem is new. Symptoms have improved. jr8
[2019-09-23 02:38] VITALS: O2SAT 99
[2019-09-23 02:42] VITALS: BP 114/73; TEMP 98
--- NOTE | 2019-09-23 17:16 | RAD REPORT ---
EXAM DESCRIPTION: Abdomen Pelvis Wo Contrast CLINICAL HISTORY: ABD PAIN COMPARISON: 12/10/2018. TECHNIQUE: CT ABDOMEN PELVIS WITHOUT IV CONTRAST on 09/22/2019 9:27 PM CDT This exam was performed according to our departmental dose-optimization program, which includes autom ated exposure control, adjustment of the mA and/or kV according to patient size and/or use of iterati ve reconstruction technique. FINDINGS: Lower lungs are clear. Abdomen: The liver is normal in appearance. There is no biliary dilatation. Gallbladder is distended. Stomach is distended. The pancreas and spleen are normal in appearance. Adrenal glands are normal. T here are three left renal calculi measuring up to 2 mm without hydronephrosis. There are at least fiv e right renal calculi measuring up to 4 mm without hydronephrosis. Abdominal aorta is normal in course and caliber without aneurysm. There is no free air. There is no r etroperitoneal adenopathy. Pelvis: There is no bowel obstruction. Urinary bladder is unremarkable. There is no free fluid. Appen marita is not clearly seen. Skeleton: There are no acute osseous findings. No suspicious bony lesions. IMPRESSION: Bilateral nephrolithiasis without hydronephrosis. No acute inflammatory process. Electronically signed by: Sukumar Tidwell MD 09/22/2019 10:26 PM CDT Due to temporary technical issues with the PACS/Fluency reporting system, reports are being signed by the in house radiologist without review as a courtesy to ensure prompt reporting. The interpreting r adiologist is fully responsible for the content of the report.
--- NOTE | 2019-09-24 07:42 | EKG ---
Test Date: 2019-09-22 Test Time: 19:54:05 [place] Supervisor: KEMAR MEASUREMENT RESULTS: Intervals: Rate: 73 UT: 218 QRSD: 90 QT: 520 QTc: 572 [place]: P: 80 UT: 218 QRS: 41 T: 88 INTERPRETIVE STATEMENTS: Sinus rhythm with 1st degree AV block Anterior infarct, age undetermined Prolonged QT Abnormal ECG Compared to ECG 06/26/2018 21:17:47 First degree AV block now present Prolonged QT interval now present Myocardial infarct finding still present Electronically Signed On 09-24-19 07:40:00 CDT by Titus Nixon
--- NOTE | 2019-09-25 08:46 | EKG ---
Test Date: 2019-09-22 Test Time: 19:55:20 National Account Manager: KEMAR MEASUREMENT RESULTS: Intervals: Rate: 69 NV: 214 QRSD: 100 QT: 536 QTc: 574 [place]: P: 73 NV: 214 QRS: 44 T: 86 INTERPRETIVE STATEMENTS: Sinus rhythm with 1st degree AV block Anterior infarct, age undetermined Prolonged QT Abnormal ECG Compared to ECG 09/22/2019 19:54:05 No significant changes Electronically Signed On 09-25-19 08:39:06 CDT by Titus Nixon
== END 2019-09-23 02:27 | disposition short-term general hospital (02) ==
LOC: ER 18:58
DX: N17.9 Acute kidney failure, unspecified (principal); E86.0 Dehydration; K92.0 Hematemesis; I10 Essential (primary) hypertension; E78.00 Pure hypercholesterolemia, unspecified; E78.5 Hyperlipidemia, unspecified; K21.9 Gastro-esophageal reflux disease without esophagitis
CPT/HCPCS: 36415; 71045; 74176; 80048; 80076; 83735; 83880; 84484; 85025; 85610; 86850; 86900; 86901; 93005; 96365; 96366; 96367; 96368; 96375; 99285; C9113; J2354; J2405; J3480; J7030; J7040; J7050

== ENCOUNTER 2019-12-25 11:37 | Day surgery (SDC) | payer OTHER ==
--- OUTSIDE RECORDS SUMMARY | 2019-12-25 11:53 | XMS REPORT | Clinical Summary ---
:1955 Author Organization Formerly [facility] Address [address] [place] [id number] Care Team Providers Name Role Phone Pcp, No Primary Care Provider Unavailable Archie Blunt MD Primary Care Provider Allergies No Known Allergies Medications Medication Sig Dispensed Refills Start Date End Date Status ezetimibe (ZETIA) Take 10 mg by 0 Active 10 mg tablet mouth daily. niacin Take 500 mg by 0 Activ [...] FOR 3 WEEKS BEFORE STARTING CYCLE AGAIN. omeprazole Take 40 mg by 0 Activ e (PRILOSEC) 40 MG mouth daily. capsule simvastatin Take 40 mg by 0 Acti ve (ZOCOR) 40 MG mouth nightly. tablet promethazine TAKE ONE (1) TO 0 09/11/2019 Active (PHENERGAN) 25 MG TWO (2) tablet TABLET(S) BY MOUTH EVERY FOUR TO SIX HOURS NEEDED. aspirin 81 MG EC Take 81 mg by 0 0 Discontinued tabletIndications: mouth daily. myocardial infarction prevention, thrombosis prevention after PCI simvastatin Take 1 tablet 0 07/16/2018 09/16/2019 Di scontinued (ZOCOR) 40 MG (40 mg total) tablet by mouth nightly. pantoprazole Take 40 mg by 0 07/12/2018 09/16/2019 D iscontinued (PROTONIX) 40 MG mouth. tablet pantoprazole Take 1 tablet 20 tablet 0 09/16/2019 09/23/2019 D iscontinued (PROTONIX) 20 MG (20 mg total) tablet by mouth daily for 20 days. sucralfate Take 10 mLs (1 420 mL 0 09/16/2019 10/16/2019 Ex pired (CARAFATE) 100 g total) by mg/mL suspension mouth 4 (four) times daily for 30 days. ondansetron Take 1 tablet 12 tablet 0 09/16/2019 09/23/2019 Di scontinued (ZOFRAN) 4 MG (4 mg total) by tablet mouth every 6 (six) hours for 7 days. traMADoL 100 mg Take 50 mg by 30 tablet 0 10/08/2019 0 Discontinued Tab mouth every 6 (six) hours as needed for up to 10 days. Max Daily Amount: 200 mg traMADoL 100 mg Take 50 mg by 30 tablet 0 10/08/2019 0 Discontinued Tab mouth every 6 (six) hours as needed for up to 10 days. Max Daily Amount: 200 mg traMADoL 100 mg Take 50 mg by 30 tablet 0 10/08/2019 0 Tab mouth every 6 (six) hours as needed for up to 10 days. 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 Abdominal pain 09/24/2019 Peptic ulcer disease 09/23/2019 SANTOS (acute kidney injury) 09/23/2019 Volume depletion 09/23/2019 Non-intractable vomiting with nausea 09/23/2019 Duodenal ulcer with hemorrhage but without obstruction 06/28/2018 Anemia, secondary 06/28/2018 Hiatal hernia 06/28/2018 Melena 06/28/2018 Hyperlipidemia 06/28/2018 GIB (gastrointestinal bleeding) 06/27/2018 Coronary artery disease involving [place] coronary jennyfer ry of [place] heart 06/27/2018 without angina pectoris Chest pain with high risk for cardiac etiology 016 Resolved Problems Problem Noted Date Resolved Date Acute blood loss anemia 09/25/2019 10/08/2019 Encounters Date Type Specialty Care Team Description 10/01/2019 Surgery JAMES Quiros II, MD 10/01/2019 Anesthesia Event Nir Mcduffie MD Narayan, Rakesh, MD 09/29/2019 Anesthesia Event Gastroenterology Ciaran Cruz MD Goldman, Steven, CRNA 09/29/[address], COLONOSCO PY,BIOPSY 09/26/2019 Orders Only General Internal Medicine 09/24/2019 Anesthesia Event Gastroenterology Wilner Trimble MD 09/24/2019 Surgery Gastroenterology Vandana Cuenca UPPER END OSCOPY MD Ana 09/23/2019 Hospital General Internal Cary Holm SANTOS (acute kidney injury) (HCC) (Primary Dx); - Encounter Medicine Liat Maurer, Gastrointest inal hemorrhage, unspecified gastrointestinal hemorrhage type; 10/08/2019 Non-intractable vomiting with nausea; Humberto Mensah, Peptic ulcer disease; Volume depletion; Willy, Duodenal adenoc arcinoma (HCC); Sarai Gotti, Acute blood loss anemia; Acute duodenal ulcer with gastric outlet obstruction; Phyliciaa, Abnormal CT sca n of lung; Khannan Asbestos exposu re; MD Fabian Abnormal CT of the chest; Bhavik, Coronary artery disease involving [place] coronary artery of [place] heart with angina pectoris (HCC); MD Elías Severe protein- calorie malnutrition (Soto: less than 60% of standard weight) (HCC); Pre-operative r espiratory examination 09/23/2019 Travel 09/23/2019 Abstract Internal Medicine Cary Holm MD 09/16/2019 Emergency Emergency Medicine Shinthia, Nausea an d vomiting, intractability of vomiting not specified, unspecified vomiting type (Primary Dx); MD Dacia Hypokalemia 09/16/2019 Travel after 12/24/2018 Family History Medical History Relation Name Comments Heart disease Father Diabetes Mother Hypertension Mother Relation Name Status Comments Father Mother Social History Tobacco Use Types Packs/Day Years Used Date Former Smoker Smokeless Tobacco: Former User Comments: PAST SMOKER (SMOKED FOR 3 YEAR S2013 - [id number]) Alcohol Use Drinks/Week oz/Week Comments Yes 5 Cans of beer 5.0 ON OCCASION WEEK END Sex Assigned at Date Recorded Not on file Last Filed Vital Signs Vital Sign Reading Time Taken Comments Blood Pressure 119/62 10/08/2019 10:57 AM CDT Pulse 55 10/08/2019 10:57 AM CDT Temperature 36.9 C (98.4 F) 10/08/2019 10:57 AM CDT Respiratory Rate 18 10/08/2019 10:57 AM CDT Oxygen Saturation 100% 10/08/2019 10:57 AM CDT Inhaled Oxygen Concentration - - Weight 65.2 kg (143 lb 11.2 oz) 09/25/2019 5:00 AM CDT Height 167.6 cm (5' 6") 09/23/2019 3:44 AM CDT Body Mass Index 23.19 09/23/2019 3:44 AM CDT Plan of Treatment Health Maintenance Due Date Last Done Comments PNEUMOCOCCAL VACCINE 0-64 YRS (1 of 1 - PPSV23) 1961 INFLUENZA VACCINE (#1) 2019 LIPID PANEL 09/22/2022 09/23/2019 COLON CANCER SCREENING COLONOSCOPY 09/28/2029 09/29/2019 Procedures Procedure Name Priority Date/Time Associated Comments Diagnosis REPORT OF PROCEDURE - 10/10/2019 7:40 ENDOSCOPY SCAN AM CDT RHYTHM STRIP - SCAN 10/10/2019 7:40 AM CDT POCT-GLUCOSE METER Routine 10/08/2019 10:59 Resul ts for this AM CDT procedure are i n the results section. SARS-COV2/RT-PCR ([facility] Routine 10/08/2019 8:53 R esults for this & REF LABS) AM CDT procedure are i n the results section. POCT-GLUCOSE METER Routine 10/08/2019 7:13 Resul ts for this AM CDT procedure are i n the results section. PHOSPHORUS Routine 10/08/2019 3:40 Results for this AM CDT procedure are i n the results section. MAGNESIUM Routine 10/08/2019 3:40 Results for this AM CDT procedure are i n the results section. BASIC METABOLIC PANEL Routine 10/08/2019 3:40 Re sults for this (7) AM CDT procedure are i n the results section. POCT-GLUCOSE METER Routine 10/07/2019 10:15 Resul ts for this PM CDT procedure are i n the results section. POCT-GLUCOSE METER Routine 10/07/2019 3:20 Resul ts for this PM CDT procedure are i n the results section. POCT-GLUCOSE METER Routine 10/07/2019 12:45 Resul ts for this PM CDT procedure are i n the results section. POCT-GLUCOSE METER Routine 10/07/2019 7:24 Resul ts for this AM CDT procedure are i n the results section. PHOSPHORUS Routine 10/07/2019 3:37 Results for this AM CDT procedure are i n the results section. MAGNESIUM Routine 10/07/2019 3:37 Results for this AM CDT procedure are i n the results section. BASIC METABOLIC PANEL Routine 10/07/2019 3:37 Re sults for this (7) AM CDT procedure are i n the results section. CBC (HEMOGRAM ONLY) Routine 10/07/2019 3:37 Resu lts for this AM CDT procedure are i n the results section. POCT-GLUCOSE METER Routine 10/06/2019 10:14 Resul ts for this PM CDT procedure are i n the results section. POCT-GLUCOSE METER Routine 10/06/2019 2:47 Resul ts for this PM CDT procedure are i n the results section. POCT-GLUCOSE METER Routine 10/06/2019 10:57 Resul ts for this AM CDT procedure are i n the results section. POCT-GLUCOSE METER Routine 10/06/2019 6:55 Resul ts for this AM CDT procedure are i n the results section. PHOSPHORUS Routine 10/06/2019 3:29 Results for this AM CDT procedure are i n the results section. MAGNESIUM Routine 10/06/2019 3:29 Results for this AM CDT procedure are i n the results section. BASIC METABOLIC PANEL Routine 10/06/2019 3:29 Re sults for this (7) AM CDT procedure are i n the results section. CBC (HEMOGRAM ONLY) Routine 10/06/2019 3:29 Resu lts for this AM CDT procedure are i n the results section. POCT-GLUCOSE METER Routine 10/05/2019 9:33 Resul ts for this PM CDT procedure are i n the results section. POCT-GLUCOSE METER Routine 10/05/2019 3:10 Resul ts for this PM CDT procedure are i n the results section. POCT-GLUCOSE METER Routine 10/05/2019 11:18 Resul ts for this AM CDT procedure are i n the results section. POCT-GLUCOSE METER Routine 10/05/2019 7:27 Resul ts for this AM CDT procedure are i n the results section. PHOSPHORUS Routine 10/05/2019 3:54 Results for this AM CDT procedure are i n the results section. MAGNESIUM Routine 10/05/2019 3:54 Results for this AM CDT procedure are i n the results section. BASIC METABOLIC PANEL Routine 10/05/2019 3:54 Re sults for this (7) AM CDT procedure are i n the results section. CBC (HEMOGRAM ONLY) Routine 10/05/2019 3:54 Resu lts for this AM CDT procedure are i n the results section. POCT-GLUCOSE METER Routine 10/04/2019 9:23 Resul ts for this PM CDT procedure are i n the results section. POCT-GLUCOSE METER Routine 10/04/2019 3:20 Resul ts for this PM CDT procedure are i n the results section. POCT-GLUCOSE METER Routine 10/04/2019 11:38 Resul ts for this AM CDT procedure are i n the results section. POCT-GLUCOSE METER Routine 10/04/2019 7:33 Resul ts for this AM CDT procedure are i n the results section. PHOSPHORUS Routine 10/04/2019 4:07 Results for this AM CDT procedure are i n the results section. MAGNESIUM Routine 10/04/2019 4:07 Results for this AM CDT procedure are i n the results section. BASIC METABOLIC PANEL Routine 10/04/2019 4:07 Re sults for this (7) AM CDT procedure are i n the results section. CBC (HEMOGRAM ONLY) Routine 10/04/2019 4:07 Resu lts for this AM CDT procedure are i n the results section. POCT-GLUCOSE METER Routine 10/03/2019 9:05 Resul ts for this PM CDT procedure are i n the results section. POCT-GLUCOSE METER Routine 10/03/2019 4:01 Resul ts for this PM CDT procedure are i n the results section. POCT-GLUCOSE METER Routine 10/03/2019 12:22 Resul ts for this PM CDT procedure are i n the results section. XR ABDOMEN / KUB 1 NHUNG 10/03/2019 8:51 Resul ts for this VIEW AM CDT procedure are i n the results section. POCT-GLUCOSE METER Routine 10/03/2019 7:22 Resul ts for this AM CDT procedure are i n the results section. PHOSPHORUS Routine 10/03/2019 3:40 Results for this AM CDT procedure are i n the results section. MAGNESIUM Routine 10/03/2019 3:40 Results for this AM CDT procedure are i n the results section. BASIC METABOLIC PANEL Routine 10/03/2019 3:40 Re sults for this (7) AM CDT procedure are i n the results section. CBC (HEMOGRAM ONLY) Routine 10/03/2019 3:40 Resu lts for this AM CDT procedure are i n the results section. POCT-GLUCOSE METER Routine 10/02/2019 8:41 Resul ts for this PM CDT procedure are i n the results section. TRANSFUSION SERVICE 10/02/2019 6:01 REPORT - SCAN PM CDT POCT-GLUCOSE METER Routine 10/02/2019 3:57 Resul ts for this PM CDT procedure are i n the results section. INTRAOPERATIVE PATH 10/02/2019 3:11 REPORT - SCAN PM CDT PULMONARY FUNCTION - 10/02/2019 11:30 Res ults for this SCAN AM CDT procedure are i n the results section. CBC (HEMOGRAM ONLY) Routine 10/02/2019 3:43 Resu lts for this AM CDT procedure are i n the results section. HEPATIC FUNCTION PANEL Routine 10/02/2019 3:42 R esults for this AM CDT procedure are i n the results section. PHOSPHORUS Routine 10/02/2019 3:42 Results for this AM CDT procedure are i n the results section. MAGNESIUM Routine 10/02/2019 3:42 Results for this AM CDT procedure are i n the results section. BASIC METABOLIC PANEL Routine 10/02/2019 3:42 Re sults for this (7) AM CDT procedure are i n the results section. POCT-GLUCOSE METER Routine 10/01/2019 10:29 Resul ts for this PM CDT procedure are i n the results section. PH, ARTERIAL STAT 10/01/2019 9:50 Results for this AM CDT procedure are i n the results section. CALCIUM, IONIZED STAT 10/01/2019 9:50 Results for this AM CDT procedure are i n the results section. HGB/HCT (H&H) - STAT STAT 10/01/2019 9:50 Res ults for this LAB AM CDT procedure are i n the results section. GLUCOSE-STAT LAB STAT 10/01/2019 9:50 Results for this AM CDT procedure are i n the results section. BLOOD GAS, ARTERIAL STAT 10/01/2019 9:50 Resu lts for this AM CDT procedure are i n the results section. SURGICALLY OBTAINED Routine 10/01/2019 9:19 Resu lts for this CULTURE + GRAM STAIN AM CDT procedu re are in the results section. ANAEROBIC CULTURE Routine 10/01/2019 9:19 Result s for this AM CDT procedure are i n the results section. FUNGUS CULTURE + Routine 10/01/2019 9:19 Results for this SMEAR AM CDT procedure are i n the results section. ANESTHESIA SPINAL Routine 10/01/2019 8:38 Result s for this BLOCK AM CDT procedure are i n the results section. TISSUE EXAM AP Routine 10/01/2019 8:34 Results for this AM CDT procedure are i n the results section. PREPARE RBC STAT 10/01/2019 7:40 Results for this AM CDT procedure are i n the results section. WHIPPLE 10/01/2019 7:15 Malignant neoplasm AM CDT of duodenum (HCC) Case Notes 6 HRS PER BARBARAPATIENT A D IALYSIS PATIENT Special Needs (DIALYSIS PATIENT, ERAS PROT OCOL, NO ICU BED NEEDED) checked by Dre Escobar (CELLAVISION MANUAL Routine 10/01/2019 4:47 Resu lts for this DIFF) AM CDT procedure are i n the results section. CBC WITH PLATELET Routine 10/01/2019 4:47 Result s for this COUNT + MANUAL DIFF AM CDT procedur e are in the results section. TYPE AND SCREEN, Routine 10/01/2019 4:47 Results for this AUTOMATED AM CDT procedure are i n the results section. PHOSPHORUS Routine 10/01/2019 4:47 Results for this AM CDT procedure are i n the results section. MAGNESIUM Routine 10/01/2019 4:47 Results for this AM CDT procedure are i n the results section. HEPATIC FUNCTION Routine 10/01/2019 4:47 Results for this PANEL AM CDT procedure are i n the results section. BASIC METABOLIC Routine 10/01/2019 4:47 Results for this PANEL (7) AM CDT procedure are i n the results section. CBC W/PLT+MANUAL Routine 10/01/2019 4:47 Results for this DIFF AM CDT procedure are i n the results section. CBC W/PLT COUNT & Routine 09/30/2019 6:00 Result s for this AUTO DIFFERENTIAL PM CDT procedure are in the results section. CBC W/PLT COUNT & Routine 09/30/2019 6:00 Result s for this AUTO DIFFERENTIAL PM CDT procedure are in the results section. BASIC METABOLIC Routine 09/30/2019 5:59 Results for this PANEL (7) PM CDT procedure are i n the results section. SPIROMETRY Routine 09/30/2019 2:22 Results for this PM CDT procedure are i n the results section. LUNG VOLUMES Routine 09/30/2019 2:22 Results for this PM CDT procedure are i n the results section. DLCO (SINGLE BREATH Routine 09/30/2019 2:22 Resu lts for this DIFFUSION) PM CDT procedure are i n the results section. SARS-COV2/RT-PCR Routine 09/30/2019 9:19 Results for this ([facility] & REF LABS) AM CDT procedure are in the results section. REPORT OF PROCEDURE 09/29/2019 11:43 - ENDOSCOPY URL AM CDT TISSUE EXAM AP Routine 09/29/2019 11:20 Results for this AM CDT procedure are i n the results section. COLONOSCOPY,BIOPSY 09/29/2019 10:40 Anemia, unspecifie d AM CDT type Special Needs REQ: TF SARS-COV2/RT-PCR ([facility] & REF Routine 09/28/2019 5:39 PM CDT Results for this LABS) procedure are i n the results section . ELECTROLYTE PANEL Routine 09/28/2019 11:30 AM CDT Results for this procedure are i n the results section . BASIC METABOLIC PANEL (7) Routine 09/27/2019 12:47 PM CDT Results for this procedure are i n the results section . CBC W/PLT COUNT & AUTO Routine 09/27/2019 9:39 AM CDT Results for this DIFFERENTIAL procedure are i n the results section . CBC W/PLT COUNT & AUTO Routine 09/27/2019 9:39 AM CDT Results for this DIFFERENTIAL procedure are i n the results section . CT ABDOMEN/PELVIS WITH & Routine 09/26/2019 9:45 PM CDT Results for this WITHOUT IV CONTRAST procedur e are in the results section . CT CHEST WITH IV CONTRAST Routine 09/26/2019 9:45 PM CDT Results for this procedure are i n the results section . POTASSIUM Routine 09/26/2019 1:55 PM CDT Resu lts for this procedure are i n the results section . TREADMILL Routine 09/26/2019 11:50 AM CDT Resu lts for this TOLERANCE(NON-NUCLEAR proced ure are in the TREADMILL) results section . ECG 12-LEAD Routine 09/26/2019 11:47 AM CDT Resu lts for this procedure are i n the results section . ECG 12-LEAD Routine 09/26/2019 11:47 AM CDT Procedure Note - Interface, External Ris In - 09/26/2019 1:29 PM CDT Ventricular Rate 54 BPM Atrial Rate 54 BPM P-R Interval 220 ms QRS Duration 86 ms Q-T Interval 428 ms QTC Calculation(Bazett) 405 ms P [place] 66 degrees R [place] 32 degrees T [place] 59 degrees Sinus bradycardia with 1st d egree A-V block Anteroseptal infarct , age u ndetermined Abnormal ECG NM MYOCARDIAL STAT 09/26/2019 11:42 Results fo r PERFUSION PET/CT (REST AM CDT this procedure & STRESS) are in the results section. 2D ECHO W/ DOPPLER NHUNG 09/26/2019 9:57 Resul ts for (CW/PW/COLOR) AM CDT this procedure are in the results section. CARCINOEMBRYONIC Routine 09/25/2019 5:54 Results for ANTIGEN (CEA) PM CDT this procedure are in the results section. CARBOHYDRATE ANTIGEN Routine 09/25/2019 4:13 Res ults for 19-9 (CA 19-9) PM CDT this procedur e are in the results section. CT ABDOMEN/PELVIS WITH NHUNG 09/25/2019 9:43 R esults for IV CONTRAST AM CDT this procedure are in the results section. CBC W/PLT COUNT & AUTO Routine 09/25/2019 5:07 R esults for DIFFERENTIAL AM CDT this procedure are in the results section. CBC W/PLT COUNT & AUTO Routine 09/25/2019 5:07 R esults for DIFFERENTIAL AM CDT this procedure are in the results section. MAGNESIUM Routine 09/25/2019 5:07 Results for AM CDT this procedure are in the results section. BASIC METABOLIC PANEL Routine 09/25/2019 5:07 Re sults for (7) AM CDT this procedure are in the results section. REPORT OF PROCEDURE - 09/24/2019 1:33 ENDOSCOPY URL PM CDT TISSUE EXAM AP Routine 09/24/2019 1:15 Results for PM CDT this procedure are in the results section. ENTEROSCOPY,BIOPSY 09/24/2019 12:30 Gastrointestinal PM CDT hemorrhage, unspecified gastrointestinal hemorrhage type UPPER ENDOSCOPY 09/24/2019 12:30 Gastrointestinal PM CDT hemorrhage, unspecified gastrointestinal hemorrhage type POTASSIUM NHUNG 09/24/2019 11:06 Results for AM CDT this procedure are in the results section. CBC W/PLT COUNT & AUTO Routine 09/24/2019 4:51 R esults for DIFFERENTIAL AM CDT this procedure are in the results section. CBC W/PLT COUNT & AUTO Routine 09/24/2019 4:51 R esults for DIFFERENTIAL AM CDT this procedure are in the results section. MAGNESIUM Routine 09/24/2019 4:51 Results for AM CDT this procedure are in the results section. BASIC METABOLIC PANEL Routine 09/24/2019 4:51 Re sults for (7) AM CDT this procedure are in the results section. IRON, TIBC, % SAT. Routine 09/23/2019 2:56 Resul ts for (WITHOUT FERRITIN) PM CDT this proc edure are in the results section. FERRITIN Routine 09/23/2019 2:56 Results for PM CDT this procedure are in the results section. SARS-COV2/RT-PCR ([facility] Routine 09/23/2019 12:19 R esults for & REF LABS) PM CDT this procedure are in the results section. CBC W/PLT COUNT & AUTO Routine 09/23/2019 5:35 R esults for DIFFERENTIAL AM CDT this procedure are in the results section. TROPONIN I Routine 09/23/2019 5:35 Results for AM CDT this procedure are in the results section. CBC W/PLT COUNT & AUTO Routine 09/23/2019 5:35 R esults for DIFFERENTIAL AM CDT this procedure are in the results section. LIPID PANEL Routine 09/23/2019 5:35 Results for AM CDT this procedure are in the results section. MAGNESIUM Routine 09/23/2019 5:35 Results for AM CDT this procedure are in the results section. BASIC METABOLIC PANEL Routine 09/23/2019 5:35 Re sults for (7) AM CDT this procedure are in the results section. CBC W/PLT COUNT & AUTO STAT 09/16/2019 2:32 R esults for DIFFERENTIAL PM CDT this procedure are in the results section. COMPREHENSIVE STAT 09/16/2019 2:32 Results fo r METABOLIC PANEL PM CDT this procedu re are in the results section. LIPASE STAT 09/16/2019 2:32 Results for PM CDT this procedure are in the results section. PT/APTT STAT 09/16/2019 2:32 Results for PM CDT this procedure are in the results section. CBC W/PLT COUNT & AUTO STAT 09/16/2019 2:32 R esults for DIFFERENTIAL PM CDT this procedure are in the results section. after 12/24/2018 Results EKG-SCANNED (10/10/2019 7:40 AM CDT) Narrative Performed At This result has an attachment that is no t available. RHYTHM STRIP - SCAN (10/10/2019 7:40 AM CDT) Narrative Performed At This result has an attachment that is no t available. POC-Glucose meter (10/08/2019 10:59 AM CDT)Only the most recent of25 results within the time period is included. Pathologist [facility] POC-Glucose Meter 94Comment: : 70 - 110 mg/dL BARBARA RUEÑA TESTED AT [address], [address]: Vending Machine Host/Hostess/Technic olivia ID = [id number] for Froy Franosvaldo Specimen Blood Performing Organization Address City/State/Zipcode Phone Number BARBARA PATINORajwinder [address] [phone] CENTER SARS-CoV2/RT-PCR (Asymptomatic ONLY) (10/08/2019 8:53 AM CDT)Only the most recent of4 resultswithin the time period is included. Pathologist [facility] SARS-COV2/RT-PCR Negative Not Detected, BARBARA UREÑA Negative, See [facility] external report CENTER for linked test SARS-COV-2 [facility] BARBARA UREÑA PERFORMING LAB [facility] EM[facility] Specimen Other - Nasopharyngeal wall structure (b filiberto structure) Narrative Performed At Negative result for this test determines that [facility] SARS-CoV-2 RNA was not present in the specimen above the Limit of Detection (LOD). However, Negative results do not preclude SARS-CoV-2 infection and should not be used as the sole basis for treatment or patient management decisions. Negative results must be combined with clinical observations, patient history, and epidemiological information. A false negative result may occur if a specimen is improperly collected, transported or handled. A false negative result should be considered if patient's recent exposures or clinical presentation indicate that COVID-19 (SARS-CoV-2) is likely and diagnostic tests for other causes of illness are negative. Re-testing should be considered in cases of suspected false negatives. The limit of detection for this assay is 800 copies/mL. This SARS CoV-2 test is a real-time RT-PCR test intended for the qualitative detection of nucleic acid from SARS-CoV-2 in a nasopharyngeal swab specimen collected from individuals suspected of COVID-19 by their healthcare provider. This test has not been Food and Drug Administration (FDA) cleared or approved. This is a modified version of an approved Emergency Use Authorization (EUA) and is in the process of review by the FDA. Once authorized by the FDA, the issued EUA will be effective until the declaration that circumstances exist justifying the authorization of the emergency use of in vitro diagnostic tests for detection and/or diagnosis of COVID-19 is terminated under Section 564(b)(2) of the Act or the EUA is revoked under Section 564(g) of the Act. Fact Sheet for Healthcare Providers: https://www.[employer].com/sites/default/files/pro duct/documents/Fact_Sheet_HC_Providers_Lyra_SA RS-CoV-2.pdf Fact Sheet for Healthcare Patients: https://www.[employer].com/sites/default/files/pro duct/documents/Fact_Sheet_Patients_Lyra_SARS-C oV-2.pdf Performing Laboratory: [address] [place] [address] Performing Organization Address City/State/Zipcode Phone Number [place] [phone] CENTER Phosphorus (10/08/2019 3:40 AM CDT)Only the most recent of8 resultswithin the time period is included. Pathologist Sig nature Phosphorus 2.3 2.3 - 4.7 mg/dL [facility] Specimen Blood Narrative Performed At Vending Machine Host/Hostess ID - [facility] Performing Organization Address City/State/Zipcode Phone Number [facility] [address] [place] [address] CENTER Magnesium (10/08/2019 3:40 AM CDT)Only the most recent of11 resultswithin the time period is included. Pathologist Sig nature Magnesium 2.0 1.6 - 2.6 mg/dL [facility] Specimen Blood Narrative Performed At Vending Machine Host/Hostess ID - [facility] Performing Organization Address City/[facility]/[place] Phone Number [address] [address] [place] Basic Metabolic Panel (10/08/2019 3:40 AM CDT)Only the most recent of13 results within the time period is included. Sodium 130 (L) 136 - 145 [facility] meq/L [facility] Potassium 3.7 3.5 - 5.1 [facility] meq/L [facility] Chloride 102 98 - 107 meq/L [facility] CO2 24 22 - 29 meq/L [facility] BUN 5 (L) 7 - 21 mg/dL [facility] Creatinine 0.60 0.57 - 1.25 [facility] mg/dL [facility] Glucose 86 70 - 105 mg/dL [facility] Calcium 7.7 (L) 8.4 - 10.2 [facility] mg/dL [facility] EGFR Comment: INSUFFICIENT [facility] CLINICAL DATA TO [facility] CALCULATE ESTIMATED CENTER GFR. Specimen Blood Narrative Performed At Vending Machine Host/Hostess ID - [facility] Performing Organization Address City/State/Zipcode Phone Number [place] [phone] [place] [address] CENTER CBC (Hemogram only) (10/07/2019 3:37 AM CDT)Only the most recent of6 results within the time period is included. Pathologist Sig nature WBC 5.3 3.5 - 10.5 K/L [facility] RBC 2.99 (L) 4.63 - 6.08 M/L [facility] Hemoglobin 8.4 (L) 13.7 - 17.5 GM/DL [facility] Hematocrit 25.2 (L) 40.1 - 51.0 % [facility] MCV 84.3 79.0 - 92.[address] [facility] MCH 28.1 25.7 - 32.[address] [facility] MCHC 33.3 32.3 - 36.5 GM/DL [facility] RDW 13.8 11.6 - 14.4 % [facility] Platelets 263 150 - 450 K/CU MM [facility] MPV 9.4 9.4 - 12.[address] [facility] nRBC 0 0 - 0 /[address] [facility] Specimen Blood Performing Organization Address City/State/Zipcode Phone Number [facility] [address] [place] [address] CENTER XR abdomen / KUB 1 view (10/03/2019 8:51 AM CDT) Specimen Narrative Performed At FINAL REPORT [employer] RAD, ABDOMEN/KUB, 1 VIEW AP TECHNIQUE: Supine radiograph of the abdo men and pelvis. HISTORY: abd distention COMPARISON: CT abdomen and pelvis 020 IMPRESSION: A single moderately dilated and gas-fill ed small bowel loop projects over the upper mid abdomen, focal small bowel obstruction not excluded. No pneumoperitoneum given li mitations of supine technique. A surgical drain projects over the right -sided abdomen, tip projects over the epigastrium No significant stool burden in the colon . No acute osseous abnormality. Signed: Tito Pinto MD Report Verified Date/Time: 10/03/2019 09:32:02 Reading Location: [facility] Diagnostic Imagin g Reading Room - [place] [address] Procedure Note Interface, External Ris In - 10/03/2019 9:34 AM CDT FINAL REPORT RAD, ABDOMEN/KUB, 1 VIEW AP TECHNIQUE: Supine radiograph of the abdo men and pelvis. HISTORY: abd distention COMPARISON: CT abdomen and pelvis 020 IMPRESSION: A single moderately dilated and gas-fill ed small bowel loop projects over the upper mid abdomen, focal small bowel obstruction not excluded. No pneumoperitoneum given chahal itations of supine technique. A surgical drain projects over the right -sided abdomen, tip projects over the epigastrium No significant stool burden in the colon . No acute osseous abnormality. Signed: Tito Pinto MD Report Verified Date/Time: 10/03/2019 0 9:32:02 Reading Location: [facility] Diagnostic Imagin g Reading Room - [place] [address] Performing Organization Address City/State/Zipcode Phone Number [place] RIS TRANSFUSION SERVICE REPORT - SCAN (10/02/2019 6:01 PM CDT) Narrative Performed At This result has an attachment that is no t available. INTRAOPERATIVE PATH REPORT - SCAN (10/02/2019 3:11 PM CDT) Narrative Performed At This result has an attachment that is no t available. PULMONARY FUNCTION - SCAN (10/02/2019 11:30 AM CDT) Narrative Performed At This result has an attachment that is no t available. Hepatic function panel (10/02/2019 3:42 AM CDT)Only the most recent of2 results within the time period is included. Pathologist Sig nature Protein, Total 5.4 (L) 6.0 - 8.3 gm/dL [facility] Albumin 2.9 (L) 3.5 - 5.0 g/dL [facility] Total Bilirubin 0.6 0.2 - 1.2 mg/dL [facility] Bilirubin, Direct 0.3 0.1 - 0.5 mg/dL [facility] Alkaline Phosphatase 118 40 - 150 U/L [facility] AST 153 (H) 5 - 34 U/L [facility] ALT 152 (H) 6 - 55 U/L [facility] Specimen Blood Narrative Performed At Vending Machine Host/Hostess ID - NTP [facility] Performing Organization Address [facility]/[place] Phone Number [address] [address] CENTER Glucose-Stat Lab (10/01/2019 9:50 AM CDT) Pathologist Sig nature Glucose 166 (H) 70 - 110 mg/dL [facility] Specimen Blood, Arterial Performing Organization Address [facility] Phone Number [address] [address] CENTER pH, arterial (10/01/2019 9:50 AM CDT) Pathologist Sig nature pH, Arterial 7.45 7.35 - 7.45 [facility] Specimen Blood, Arterial Performing Organization Address [facility]/[place] Phone Number [address] [address] CENTER HGB/HCT (H&H)-Stat Lab (10/01/2019 9:50 AM CDT) Pathologist Sig nature Hemoglobin 10.7 (L) 13.0 - 16.8 g/dL [facility] Hematocrit 31.0 (L) 40.0 - 50.0 % [facility] Specimen Blood, Arterial Performing Organization Address [facility]/[place] Phone Number [address] [address] CENTER Calcium, Ionized (10/01/2019 9:50 AM CDT) Pathologist Sig nature Calcium, Ion 1.03 (L) 1.12 - 1.27 mmol/L [facility] pH, Blood 7.43 [facility] Specimen Blood Performing Organization Address City/[facility]/Zipcode Phone Number [address] [address] [place] Blood gas, arterial (10/01/2019 9:50 AM CDT) Pathologist Sig nature pH, Arterial 7.45 7.35 - 7.45 [facility] pCO2, Arterial 35 35 - [address] [facility] pO2, Arterial 228 (H) 80 - [address] [facility] O2 Sat, Arterial 99.5 (H) 96.0 - 97.0 % [facility] HCO3, Arterial 24 21 - 29 mmol/L [facility] Base Excess, Arterial -0.5 -2.0 - 3.0 [facility] mmol/L [facility] Patient Temperature 35.[address] [facility] FIO2 50.0 % [facility] Specimen Blood, Arterial Performing Organization Address [facility]/[place] Phone Number [address] [address] [place] Anaerobic culture (10/01/2019 9:19 AM CDT) Pathologist Sig nature Result No anaerobes isolated [facility] Specimen Other - Bile (substance) Performing Organization Address [facility]/Zipcode Phone Number [place] [phone] [place] [address] [place] Surgically obtained culture + gram stain (10/01/2019 9:19 AM CDT) Result No growth [facility] Gram Stain Result No WBCs [facility] Gram Stain Result No organisms seen [facility] Specimen Other - Bile (substance) Performing Organization Address City/[facility]/Zipcode Phone Number [facility] [address] [address] [place] Fungus culture + smear (10/01/2019 9:19 AM CDT) Pathologist Sig nature Result No fungus isolated [facility] in 28 days [facility] Fungus Smear No fungal elements [facility] seen [facility] Specimen Other - Bile (substance) Performing Organization Address City/State/Zipcode Phone Number [address] [address] [place] ANESTHESIA SPINAL BLOCK (10/01/2019 8:38 AM CDT) Narrative Performed At Nir Mcduffie MD 10/01/19 8:39 AM Spinal Block Patient location during procedure: OR Start time: 10/01/2019 7:35 AM End time: 10/01/2019 7:39 AM Procedure Indication: procedure for pain, at surgeon's request and post-op pain management Staffing Anesthesiologist: Nir Mcduffie MD Preanesthetic Checklist Completed: patient identified, pre-op ev aluation, timeout performed, IV checked, risks and benefits discussed, m onitors and equipment checked, anesthesia consent given, prep site dry prior to draping and maximum sterile barriers were used: cap, mask, sterile gown, s terile gloves, and large sterile sheet Prep Prep: Betadine Procedures: sterile gloves, surgical mask, surgical hansen t, sterile technique and prep and sterile drape applied Spinal Block Patient position: sitting Patient monitoring: EKG, HR, BP and SpO2 Approach: midlineNo pictures available Level: L3-4 Injection technique: single-shot landmark technique and landmark techniqu e Needle Needle type: pencil-tip (alex) Needle gauge: 25 G Needle Length: 9 cm Used introducer Assessment Sensory level: T10 Events: cerebrospinal fluid patient tolerated the procedure well and patient had no immediate complications Procedure Note Nir Mcduffie MD - 10/01/2019 8:38 AM CDT Spinal Block Patient location during procedure: OR Start time: 10/01/2019 7:35 AM End time: 10/01/2019 7:39 AM Procedure Indication: procedure for pain , at surgeon's request and post-op pain management Staffing Anesthesiologist: Nir Mcduffie MD Preanesthetic Checklist Completed: patient identified, pre-op ev aluation, timeout performed, IV checked, risks and benefits discussed, monitors and equipment checked, anesthesia consent given, prep site dry prior to draping and maximum sterile barriers were used: cap, mask, s terile gown, sterile gloves, and large sterile sheet Prep Prep: Betadine Procedures: sterile gloves, surgical mas k, surgical hat, sterile technique and prep and sterile drape applied Spinal Block Patient position: sitting Patient monitoring: EKG, HR, BP and SpO2 Approach: midlineNo pictures available Level: L3-4 Injection technique: single-shot landmark technique and landmark techniqu e Needle Needle type: pencil-tip (alex) Needle gauge: 25 G Needle Length: 9 cm Used introducer Assessment Sensory level: T10 Events: cerebrospinal fluid patient tolerated the procedure well and patient had no immediate complications Tissue Exam (10/01/2019 8:34 AM CDT)Only the most recent of3 resultswithin the time period is included. Case Report Surgical Pathology Report Case: [id number] [facility] Authorizing Provider: Lv Quiros II, MD Collected: 10/01/2019 08:[address] [facility] Ordering Location: [facility] PERIOPERATIVE Received: 10/01/2019 08:38 AM [facility] Pathologist: Ronnie Pope MD Specimens: A) - Liver, ri ght hepatic lobe wedge resection B) - Gall bladder ADDENDUM The addendum is being issued to report the results of immunohistochemistry (IHC) testing for Mismatch Repair (MMR) Proteins, which has been performed on this cancer at the request of the attending physician. The diagnosis remains unchanged. [facility] electronically IHC testing for all four MMR proteins was performed on selected block with appropriate controls. MEDICAL signed by ARACELIS Pope MD MLH1: Intact nuclear expression on 12/23/2019 at MSH2: Intact nuclear expression 4:05 PM MSH6: Intact nuclear expression PMS2: Intact nuclear expression IHC Interpretation: No loss of nuclear expression of MMR proteins: low probability of microsatellite instability-high (MSI-H). There are exceptions to the above IHC interpretation. These results should not be considered in isolat ion, and clinical correlation with genetic counseling may be considered to assess the need for germline testing. Immunohistochemistry disclaimer: The immunohistochemistry gigi t was developed and its performance characteristics determined by [facility], Pathology Laboratory. It has not been cleared or approved by the U.S. Food and Drug Administration. The FD A has determined that such clearance or approval is not necessary. The test is used for clinical purposes. It should not be regarded as investigational or for research. This laboratory is certified unde r the Clinical Laboratory Improvement Amendments of 1988 (CLIA-88) as qualified to perform high complexity clinical laboratory testing. [address], 62259 x3 DIAGNOSIS A. LIVER, RIGHT LOBE WEDGE RESECTION: [facility] Electronically - POSITIVE FOR METASTATIC ADENOCARCINOMA, MODE RATELY DIFFERENTIATED. [facility] signed by FILOMENA Pope MD B. GALLBLADDER, CHOLECYSTECTOMY: CENTER on 10/03/2019 at - MILD CHRONIC CHOLECYSTIS 2:43 PM - CHOLESTEROLOSIS - ONE LYMPH NODE POSITIVE FOR METASTATIC ADENOCARCIN INDER (02/05) Signing Pathologist Direct Phone Line: CPT Code(s) 34969, 48411, [address] [facility] CLINICAL HISTORY Malignant neoplasm of [facility] duodenum [facility] SPECIMEN SOURCE A. Liver, right lobe wedge [facility] B. Gall bladder [facility] GROSS DESCRIPTION A. Received fresh for frozen section labeled with the patient's name, medical record number and "liver" is a 0.5 gm, 2 x 1.3 x 0.3 cm liver wedge. The capsule displays a 0.2 x 0.2 x 0.1 cm, ill-defined, [facility]3] LUKE'S witt plaque. The margin is inked blue, and the specimen is serially sectioned to reveal brown homogeneous parenchyma. The specimen is entirely submitted. [facility] MEDICAL Section code: CENTER A1FS: Plaque to margin, perpendicular sections A2FS: Remainder of the specimen submitted perpendicula enay CG/ew B. Received fresh, labeled w ith the patient's name, MRN and "gallbladder" and consists of an intact gallbladder (11 x 4.2 x 4 cm) which has a clipped cystic duct. The serosa is dark green and distended. There is a 1 x 0.6 x 0.5 c m maroon-witt cystic duct lymph node. The gallbladder is opened to reveal an abundant amount of green bile. No choleliths are identified in the specimen or the specimen cont ainer. The mucosa is green a nd trabeculated. The wall thickness is 0.1 cm. No gross lesions are identified. Elderly Sitter sections are submitted. Section code B1: Cystic duct margin, en face and 1 lymph node, bise cted B2: Gallbladder wall SHAINA Pelayo PA (ASCP) INTRAOPERATIVE A. LIVER, BIOPSY: [facility] Reported by Dr. Pope to Dr. Quiros on 10/01/19, a t 0855 CENTER MICROSCOPIC Performed [facility] Specimen Tissue - Liver structure (body structure ) Tissue specimen (specimen) - Gallbladder structure (body structure) Performing Organization Address City/[facility]/[place] Phone Number [address] [address] CENTER Prepare RBC (10/01/2019 7:40 AM CDT) Pathologist Sig nature CROSSMATCH COMPATIBLE SAFETRACE TX Unit ABO O Pos SAFETRACE TX UNIT NUMBER [id number] SAFETRACE TX Status READY SAFETRACE TX Blood Bank Product RED BLOOD CELLS SAFETRACE TX PRODUCT CODE [id number] SAFETRACE TX CROSSMATCH COMPATIBLE SAFETRACE TX Unit ABO O Pos SAFETRACE TX UNIT NUMBER [id number] SAFETRACE TX Status READY SAFETRACE TX Blood Bank Product RED BLOOD CELLS SAFETRACE TX PRODUCT CODE [id number] SAFETRACE TX Performing Organization Address [facility] Phone Number SAFETRACE TX CBC with platelet count + manual diff (10/01/2019 4:47 AM CDT) Pathologist Sig nature WBC 6.4 3.5 - 10.5 K/L [facility] RBC 3.34 (L) 4.63 - 6.08 M/L [facility] Hemoglobin 9.3 (L) 13.7 - 17.5 GM/DL [facility] Hematocrit 28.2 (L) 40.1 - 51.0 % [facility] MCV 84.4 79.0 - 92.[address] [facility] MCH 27.8 25.7 - 32.[address] [facility] MCHC 33.0 32.3 - 36.5 GM/DL [facility] RDW 13.5 11.6 - 14.4 % [facility] Platelets 271 150 - 450 K/CU MM [facility] MPV 9.5 9.4 - 12.[address] [facility] nRBC 0 0 - 0 /[address] [facility] Specimen Blood Performing Organization Address City/State/Zipcode Phone Number [facility] [address] [place] [address] CENTER Manual Differential (10/01/2019 4:47 AM CDT) Pathologist Sig nature % Neutros 75 % [facility] % Lymphs 18 % [facility] % Monos 4 % [facility] % Myelo 1 (H) 0 - 0 % [facility] % Atypical Lymphs 2 (H) 0 - 0 % [facility] # Neutros 4.80 1.78 - 5.38 [facility] # Lymphs 1.15 (L) 1.32 - 3.57 [facility] # Monos 0.26 (L) 0.30 - 0.82 [facility] # Myelo 0.06 (H) 0.00 - 0.00 [facility] # Atypical Lymphs 0.13 (H) 0.00 - 0.00 [facility] Total Counted 100 [facility] WBC Morphology Normal [facility] Large Platelet Present [facility] Hypochromia 1+ few [facility] Anisocytosis 1+ few [facility] Microcytes 1+ few [facility] Poikilocytes 3+ many [facility] Target Cells 1+ few [facility] Elliptocytes 1+ few [facility] Ovalocytes 2+ moderate [facility] Tear Drop Cells 1+ few [facility] Otto Cells 2+ moderate [facility] Artifact Present [facility] Platelet Conc Adequate [facility] Specimen Blood Narrative Performed At Vending Machine Host/Hostess VIRGEN - Chanda Noel [facility] User comments: Slide comments: WBC: SEGMENTED WITH TOXIC GRANULATIONS PRESENT Performing Organization Address City/[facility]/[place] Phone Number [address] [address] CENTER Type and screen, automated (10/01/2019 4:47 AM CDT) Pathologist Sig nature ABO/RH AUTOMATED O POSITIVE [facility] Ab Scrn NEGATIVE [facility] Specimen Blood Performing Organization Address [facility]/[place] Phone Number [address] [address] CBC with platelet count + automated diff (09/30/2019 6:00 PM CDT)Only the most recent of6 resultswithin the time period is included. Pathologist Sig nature WBC 10.5 3.5 - 10.5 [facility] K/L [facility] RBC 3.47 (L) 4.63 - 6.08 [facility] M/L [facility] Hemoglobin 9.9 (L) 13.7 - 17.5 [facility] GM/DL [facility] Hematocrit 29.6 (L) 40.1 - 51.0 % [facility] MCV 85.3 79.0 - 92.[address] [facility] MCH 28.5 25.7 - 32.[address] [facility] MCHC 33.4 32.3 - 36.5 [facility] GM/DL [facility] RDW 13.6 11.6 - 14.4 % [facility] Platelets 261 150 - 450 K/CU [facility] MM [facility] MPV 9.5 9.4 - 12.[address] [facility] nRBC 0 0 - 0 /[address] [facility] % Neutros 79 % [facility] % Lymphs 13 % [facility] % Monos 7 % [facility] % Eos 0 % [facility] % Baso 0 % [facility] # Neutros 8.27 (H) 1.78 - 5.38 [facility] # Lymphs 1.35 1.32 - 3.57 [facility] # Monos 0.72 0.30 - 0.82 [facility] # Eos 0.03 (L) 0.04 - 0.54 [facility] # Baso 0.02 0.01 - 0.08 [facility] Immature 1 0 - 1 % [facility] Granulocytes-[facility] Specimen Blood Performing Organization Address City/State/Zipcode Phone Number [facility] [address] [place] [address] CENTER Lung volumes (09/30/2019 2:22 PM CDT) Narrative Performed At Dandy Duran, OMARI, RICHARD 09/30/19 20 4:18 PM [facility] PFT CHARTING REPORT Infection Control/Hand Hygiene procedure s followed throughout the encounter with patient: Yes Patient Identification Method: Patient n cedrick verified on armband, and Medical record on armband, Is the order complete?: Yes Account ID#: [id number] Patient Name: Ana Saunders Birthdate: 1955 Age: 64 y.o. Sex: male Admission Date: 09/23/2019 Patient Status: Inpatient Reasons/Symptom for having the Test?: a history/complaint of a dyspnea Type of study/treatment ordered by physi kimberlee: Lung volumes with bronchodilator(s) and Single Breath DLCO Lab Results Component Value Date HGB 10.7 (L) 09/27/2019 Ranges: Adult Male 13 - 16.8 g/dl Adult Female 12 - 15 g/dl 6 Minute Walk (read only) 09/30/201909/2909/30/2019 Pulse 54 78 71 SpO2 99 99 98 Study Date: 09/30/19 Stephen dy Time: 1422 ASSESSMENT History & Physical Mode of Arrival: Wheel chair Pulse: 78 Resp: 19 SPO2: 99 % on RA Pain Assessment Pain:None TESTING/THERAPEUTICS Medications ordered or required for pro cedure: N/A PT EDUCATION/INSTRUCTIONS Barriers to learning: No known barriers to learning. Learning need identified: Yes, Patient/ Family/[place] was informed of the ordered study by the annabelle mendiola Barriers to performing study or treatme nt: Patient has no known disability to perform the study or treat ment. DISCHARGE The study was completed in accordance wi th the physician's order and patient released from the lab withou t adverse outcome. Pulmonary Funct Lab Spirometry (09/30/2019 2:22 PM CDT) Narrative Performed At Dandy Duran RANGE ECOLOGIST, [facility] 09/30/19 4:18 PM [facility] PFT CHARTING REPORT Infection Control/Hand Hygiene procedure s followed throughout the encounter with patient: Yes Patient Identification Method: Patient n cedrick verified on armband, and Medical record on armband, Is the order complete?: Yes Account ID#: [id number] Patient Name: Ana Saunders Birthdate: 1955 Age: 64 y.o. Sex: male Admission Date: 09/23/2019 Patient Status: Inpatient Reasons/Symptom for having the Test?: a history/complaint of a dyspnea Type of study/treatment ordered by physi kimberlee: Lung volumes with bronchodilator(s) and Single Breath DLCO Lab Results Component Value Date HGB 10.7 (L) 09/27/2019 Ranges: Adult Male 13 - 16.8 g/dl Adult Female 12 - 15 g/dl 6 Minute Walk (read only) 09/30/201909/2909/30/2019 Pulse 54 78 71 SpO2 99 99 98 Study Date: 09/30/19 Stephen dy Time: 1422 ASSESSMENT History & Physical Mode of Arrival: Wheel chair Pulse: 78 Resp: 19 SPO2: 99 % on RA Pain Assessment Pain:None TESTING/THERAPEUTICS Medications ordered or required for pro cedure: N/A PT EDUCATION/INSTRUCTIONS Barriers to learning: No known barriers to learning. Learning need identified: Yes, Patient/ Family/Guradian was informed of the ordered study by the annabelle mendiola Barriers to performing study or treatme nt: Patient has no known disability to perform the study or treat ment. DISCHARGE The study was completed in accordance wi th the physician's order and patient released from the lab withou t adverse outcome. DLCO (single breath diffusion) (09/30/2019 2:22 PM CDT) Narrative Performed At Dandy Duran RRT, FLAME CUTTING MACHINE OPERATOR HELPER 09/30/19 20 4:18 PM [facility] PFT CHARTING REPORT Infection Control/Hand Hygiene procedure s followed throughout the encounter with patient: Yes Patient Identification Method: Patient n cedrick verified on armband, and Medical record on armband, Is the order complete?: Yes Account ID#: [id number] Patient Name: Ana Saunders Birthdate: 1955 Age: 64 y.o. Sex: male Admission Date: 09/23/2019 Patient Status: Inpatient Reasons/Symptom for having the Test?: a history/complaint of a dyspnea Type of study/treatment ordered by physi kimberlee: Lung volumes with bronchodilator(s) and Single Breath DLCO Lab Results Component Value Date HGB 10.7 (L) 09/27/2019 Ranges: Adult Male 13 - 16.8 g/dl Adult Female 12 - 15 g/dl 6 Minute Walk (read only) 09/30/201909/2909/30/2019 Pulse 54 78 71 SpO2 99 99 98 Study Date: 09/30/19 Stephen dy Time: 1422 ASSESSMENT History & Physical Mode of Arrival: Wheel chair Pulse: 78 Resp: 19 SPO2: 99 % on RA Pain Assessment Pain:None TESTING/THERAPEUTICS Medications ordered or required for pro cedure: N/A PT EDUCATION/INSTRUCTIONS Barriers to learning: No known barriers to learning. Learning need identified: Yes, Patient/ Family/Guradian was informed of the ordered study by the annabelle mendiola Barriers to performing study or treatme nt: Patient has no known disability to perform the study or treat ment. DISCHARGE The study was completed in accordance wi th the physician's order and patient released from the lab withou t adverse outcome. REPORT OF PROCEDURE - ENDOSCOPY URL (09/29/2019 11:43 AM CDT) Narrative Performed At This result has an attachment that is no t available. Electrolytes (09/28/2019 11:30 AM CDT) Pathologist Sig nature Sodium 134 (L) 136 - 145 meq/L [facility] Potassium 3.9 3.5 - 5.1 meq/L [facility] Chloride 104 98 - 107 meq/L [facility] CO2 23 22 - 29 meq/L [facility] Specimen Blood Narrative Performed At Vending Machine Host/Hostess ID - YVETTE Erickson [facility] Performing Organization Address City/State/Zipcode Phone Number [facility] [address] [place] [address] chest with IV contrast (09/26/2019 9:45 PM CDT) Specimen Narrative Performed At FINAL REPORT GE RIS TECHNIQUE: CT of the chest with intraven ous contrast and abdomen and pelvis without and WITH intravenous cont rast and WITHOUT oral contrast. Dose modulation, iterative rec onstruction, and/or weight-based adjustment of the mA/kV was utilized to reduce the radiation dose to as low as reasonably a chievable. INDICATION: Neoplasm: abdomen cancer of duodenum, staging COMPARISON: CT abdomen pelvis 09/25/2019. FINDINGS: LINES/TUBES: None. LUNGS AND AIRWAYS: There is mild diffuse bronchial wall thickening. Central airways are otherwise patent. Th ere are patchy groundglass opacities throughout the left lung.. The re are dependent opacities in the bilateral lower lobes, left greater than right.. PLEURA: Small bilateral pleural effusion s.. HEART AND MEDIASTINUM: The visualized th yroid gland is normal. No significant mediastinal, hilar, or axill regino lymphadenopathy. The heart and pericardium are within normal limits. Atherosclerotic coronary artery calcifications. HEPATOBILIARY: Subtle hypodense lesion w ithin segment six of the liver measuring 8 mm seen on the portal venous phase exam. (See axial image 85). 6 mm cyst within segment two. . Gallbladder is distended. There is intra and extra hepatic biliary duct dilation. There is normal insertion of the cystic duct. SPLEEN: No splenomegaly. PANCREAS: No focal masses or ductal dila tation. ADRENALS: No adrenal nodules. KIDNEYS/URETERS: No hydronephrosis or so lid mass lesions. There are multiple bilateral nonobstructing renal calculi measuring up to 3 mm in the upper pole of the right kidney. PELVIC ORGANS/BLADDER: Unremarkable. PERITONEUM/RETROPERITONEUM: Trace free p elvic fluid. No focal fluid collection or free air.. LYMPH NODES: There are few mildly enlarg ed mesenteric and retroperitoneal lymph nodes. For instanc e a left paraaortic lymph node measures 1 x 1.5 cm. (See axial leyla ge 77).. A periduodenal lymph node measures 1.1 x 0.6 cm. (Axial image 1) VESSELS: Atherosclerotic changes are not ed in the abdominal aorta and branch vessels. No evidence of aneurysma l dilation. 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 GI TRACT: Mild nonspecific wall thickeni ng of the second portion of the duodenum with adjacent fat stranding . Bowel loops are otherwise normal in caliber without evidence of ob struction.. BONES AND SOFT TISSUES: Degenerative napoleon nges are noted in spine. No suspicious osseous lesion.. IMPRESSION: Mild wall thickening of the second porti on of the duodenum consistent with known malignancy. This causes mild intra and extrahepatic biliary duct dilation. Multiple mildly enlarged retroperitoneal and mesenteric lymph nodes which may represent metastatic disease. 8 mm hypodense lesion within segment six of the liver, not characterized on this exam. Metastatic d isease cannot be excluded. Trace free pelvic fluid. No intrathoracic metastatic disease. Patchy groundglass opacities throughout the left lung concerning for pneumonia. There are small bilateral ple ural effusions with dependent lower lobe consolidative opacities which may represent atelectasis and/or pneumonia. Signed: Cedrick Jaimes MD Report Verified Date/Time: 09/26/2019 22:43:45 Reading Location: [facility] B1 C013T [facility] Reading Room Procedure Note Interface, External Ris In - 09/26/2019 10:45 PM CDT FINAL REPORT TECHNIQUE: CT of the chest with intraven ous contrast and abdomen and pelvis without and WITH intravenous cont rast and WITHOUT oral contrast. Dose modulation, iterative rec onstruction, and/or weight-based adjustment of the mA/kV was utilized to reduce the radiation dose to as low as reasonably a chievable. INDICATION: Neoplasm: abdomen cancer of duodenum, staging COMPARISON: CT abdomen pelvis 09/25/2019. FINDINGS: LINES/TUBES: None. LUNGS AND AIRWAYS: There is mild diffuse bronchial wall thickening. Central airways are otherwise patent. Th ere are patchy groundglass opacities throughout the left lung.. The re are dependent opacities in the bilateral lower lobes, left greater than right.. PLEURA: Small bilateral pleural effusion s.. HEART AND MEDIASTINUM: The visualized th yroid gland is normal. No significant mediastinal, hilar, or axill regino lymphadenopathy. The heart and pericardium are within normal limits. Atherosclerotic coronary artery calcifications. HEPATOBILIARY: Subtle hypodense lesion w ithin segment six of the liver measuring 8 mm seen on the portal venous phase exam. (See axial image 85). 6 mm cyst within segment two. . Gallbladder is distended. There is intra and extra hepatic biliary duct dilation. There is normal insertion of the cystic duct. SPLEEN: No splenomegaly. PANCREAS: No focal masses or ductal dila tation. ADRENALS: No adrenal nodules. KIDNEYS/URETERS: No hydronephrosis or so lid mass lesions. There are multiple bilateral nonobstructing renal calculi measuring up to 3 mm in the upper pole of the right kidney. PELVIC ORGANS/BLADDER: Unremarkable. PERITONEUM/RETROPERITONEUM: Trace free p elvic fluid. No focal fluid collection or free air.. LYMPH NODES: There are few mildly enlarg ed mesenteric and retroperitoneal lymph nodes. For instanc e a left paraaortic lymph node measures 1 x 1.5 cm. (See axial leyla ge 77).. A periduodenal lymph node measures 1.1 x 0.6 cm. (Axial image 1) VESSELS: Atherosclerotic changes are not ed in the abdominal aorta and branch vessels. No evidence of aneurysma l dilation. 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 GI TRACT: Mild nonspecific wall thickeni ng of the second portion of the duodenum with adjacent fat stranding . Bowel loops are otherwise normal in caliber without evidence of ob struction.. BONES AND SOFT TISSUES: Degenerative napoleon nges are noted in spine. No suspicious osseous lesion.. IMPRESSION: Mild wall thickening of the second porti on of the duodenum consistent with known malignancy. This causes mild intra and extrahepatic biliary duct dilation. Multiple mildly enlarged retroperitoneal and mesenteric lymph nodes which may represent metastatic disease. 8 mm hypodense lesion within segment six of the liver, not characterized on this exam. Metastatic d isease cannot be excluded. Trace free pelvic fluid. No intrathoracic metastatic disease. Patchy groundglass opacities throughout the left lung concerning for pneumonia. There are small bilateral ple ural effusions with dependent lower lobe consolidative opacities which may represent atelectasis and/or pneumonia. Signed: Cedrick Jaimes MD Report Verified Date/Time: 09/26/2019 2 2:43:45 Reading Location: [address] Reading Room Performing Organization Address City/State/Zipcode Phone Number [facility] CT abdomen/pelvis without & with IV contrast (09/26/2019 9:45 PM CDT) Specimen Narrative Performed At FINAL REPORT GE RIS TECHNIQUE: CT of the chest with intraven ous contrast and abdomen and pelvis without and WITH intravenous cont rast and WITHOUT oral contrast. Dose modulation, iterative rec onstruction, and/or weight-based adjustment of the mA/kV was utilized to reduce the radiation dose to as low as reasonably a chievable. INDICATION: Neoplasm: abdomen cancer of duodenum, staging COMPARISON: CT abdomen pelvis 09/25/2019. FINDINGS: LINES/TUBES: None. LUNGS AND AIRWAYS: There is mild diffuse bronchial wall thickening. Central airways are otherwise patent. Th ere are patchy groundglass opacities throughout the left lung.. The re are dependent opacities in the bilateral lower lobes, left greater than right.. PLEURA: Small bilateral pleural effusion s.. HEART AND MEDIASTINUM: The visualized th yroid gland is normal. No significant mediastinal, hilar, or axill regino lymphadenopathy. The heart and pericardium are within normal limits. Atherosclerotic coronary artery calcifications. HEPATOBILIARY: Subtle hypodense lesion w ithin segment six of the liver measuring 8 mm seen on the portal venous phase exam. (See axial image 85). 6 mm cyst within segment two. . Gallbladder is distended. There is intra and extra hepatic biliary duct dilation. There is normal insertion of the cystic duct. SPLEEN: No splenomegaly. PANCREAS: No focal masses or ductal dila tation. ADRENALS: No adrenal nodules. KIDNEYS/URETERS: No hydronephrosis or so lid mass lesions. There are multiple bilateral nonobstructing renal calculi measuring up to 3 mm in the upper pole of the right kidney. PELVIC ORGANS/BLADDER: Unremarkable. PERITONEUM/RETROPERITONEUM: Trace free p elvic fluid. No focal fluid collection or free air.. LYMPH NODES: There are few mildly enlarg ed mesenteric and retroperitoneal lymph nodes. For instanc e a left paraaortic lymph node measures 1 x 1.5 cm. (See axial leyla ge 77).. A periduodenal lymph node measures 1.1 x 0.6 cm. (Axial image 1) VESSELS: Atherosclerotic changes are not ed in the abdominal aorta and branch vessels. No evidence of aneurysma l dilation. 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 GI TRACT: Mild nonspecific wall thickeni ng of the second portion of the duodenum with adjacent fat stranding . Bowel loops are otherwise normal in caliber without evidence of ob struction.. BONES AND SOFT TISSUES: Degenerative napoleon nges are noted in spine. No suspicious osseous lesion.. IMPRESSION: Mild wall thickening of the second porti on of the duodenum consistent with known malignancy. This causes mild intra and extrahepatic biliary duct dilation. Multiple mildly enlarged retroperitoneal and mesenteric lymph nodes which may represent metastatic disease. 8 mm hypodense lesion within segment six of the liver, not characterized on this exam. Metastatic d isease cannot be excluded. Trace free pelvic fluid. No intrathoracic metastatic disease. Patchy groundglass opacities throughout the left lung concerning for pneumonia. There are small bilateral ple ural effusions with dependent lower lobe consolidative opacities which may represent atelectasis and/or pneumonia. Signed: Cedrick Jaimes MD Report Verified Date/Time: 09/26/2019 22:43:45 Reading Location: [address] Reading Room Procedure Note Interface, External Ris In - 09/26/2019 10:45 PM CDT FINAL REPORT TECHNIQUE: CT of the chest with intraven ous contrast and abdomen and pelvis without and WITH intravenous cont rast and WITHOUT oral contrast. Dose modulation, iterative rec onstruction, and/or weight-based adjustment of the mA/kV was utilized to reduce the radiation dose to as low as reasonably a chievable. INDICATION: Neoplasm: abdomen cancer of duodenum, staging COMPARISON: CT abdomen pelvis 09/25/2019. FINDINGS: LINES/TUBES: None. LUNGS AND AIRWAYS: There is mild diffuse bronchial wall thickening. Central airways are otherwise patent. Th ere are patchy groundglass opacities throughout the left lung.. The re are dependent opacities in the bilateral lower lobes, left greater than right.. PLEURA: Small bilateral pleural effusion s.. HEART AND MEDIASTINUM: The visualized th yroid gland is normal. No significant mediastinal, hilar, or axill regino lymphadenopathy. The heart and pericardium are within normal limits. Atherosclerotic coronary artery calcifications. HEPATOBILIARY: Subtle hypodense lesion w ithin segment six of the liver measuring 8 mm seen on the portal venous phase exam. (See axial image 85). 6 mm cyst within segment two. . Gallbladder is distended. There is intra and extra hepatic biliary duct dilation. There is normal insertion of the cystic duct. SPLEEN: No splenomegaly. PANCREAS: No focal masses or ductal dila tation. ADRENALS: No adrenal nodules. KIDNEYS/URETERS: No hydronephrosis or so lid mass lesions. There are multiple bilateral nonobstructing renal calculi measuring up to 3 mm in the upper pole of the right kidney. PELVIC ORGANS/BLADDER: Unremarkable. PERITONEUM/RETROPERITONEUM: Trace free p elvic fluid. No focal fluid collection or free air.. LYMPH NODES: There are few mildly enlarg ed mesenteric and retroperitoneal lymph nodes. For instanc e a left paraaortic lymph node measures 1 x 1.5 cm. (See axial leyla ge 77).. A periduodenal lymph node measures 1.1 x 0.6 cm. (Axial image 1) VESSELS: Atherosclerotic changes are not ed in the abdominal aorta and branch vessels. No evidence of aneurysma l dilation. 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 GI TRACT: Mild nonspecific wall thickeni ng of the second portion of the duodenum with adjacent fat stranding . Bowel loops are otherwise normal in caliber without evidence of ob struction.. BONES AND SOFT TISSUES: Degenerative napoleon nges are noted in spine. No suspicious osseous lesion.. IMPRESSION: Mild wall thickening of the second porti on of the duodenum consistent with known malignancy. This causes mild intra and extrahepatic biliary duct dilation. Multiple mildly enlarged retroperitoneal and mesenteric lymph nodes which may represent metastatic disease. 8 mm hypodense lesion within segment six of the liver, not characterized on this exam. Metastatic d isease cannot be excluded. Trace free pelvic fluid. No intrathoracic metastatic disease. Patchy groundglass opacities throughout the left lung concerning for pneumonia. There are small bilateral ple ural effusions with dependent lower lobe consolidative opacities which may represent atelectasis and/or pneumonia. Signed: Cedrick Jaimes MD Report Verified Date/Time: 09/26/2019 2 2:43:45 Reading Location: [address] Reading Room Performing Organization Address City/State/Zipcode Phone Number GE RIS Potassium (09/26/2019 1:55 PM CDT)Only the most recent of2 resultswithin the time period is included. Pathologist Sig nature Potassium 3.4 (L) 3.5 - 5.1 meq/L [facility] Specimen Blood Narrative Performed At Vending Machine Host/Hostess ID - NTP [facility] Performing Organization Address City/State/Zipcode Phone Number [address] [address] CENTER Treadmill tolerance(Non-Nuclear Treadmill) (09/26/2019 11:50 AM CDT) Specimen Narrative Performed At Protocol Name Regadenoson GE MUSE Time In Exercise Phase 00:01:00 Max. Systolic BP 113 mmHg Max Diastolic BP 54 mmHg Max Heart Rate 76 BPM Max Predicted Heart Rate 157 BPM Reason For Termination Predetermined end point Reason for Test Pre Op Cardiac Clearance /Risk startification Target HR Formula (220 - Age)*100% Arrhythmias none Resting ECG sinus bradycardia 1st Degree AV block,anteroseptal infarct age unde ST Changes No Significant Changes Overall Impression Indeterminate due to pharmacological stress Chest Pain none HR Response To Exercise BP Response To Exercise atorvastatin,zetia,losartan Confirmed by fellow Dana Osuna ([id number]) on 09/26/2019 2:27:18 PM Confirmed by MD HUSSEIN, MAURY ([id number]) on 09/29/2019 6:07:21 PM Procedure Note Interface, External Ris In - 09/29/2019 6:07 PM CDT Protocol Name Regadenoson Time In Exercise Phase 00:01:00 Max. Systolic BP 113 mmHg Max Diastolic BP 54 mmHg Max Heart Rate 76 BPM Max Predicted Heart Rate 157 BPM Reason For Termination Predetermined end point Reason for Test Pre Op Cardiac Clearance /Risk startification Target HR Formula (220 - Age)*100% Arrhythmias none Resting ECG sinus bradycardia 1st Degree AV block,anteroseptal infarct age unde ST Changes No Significant Changes Overall Impression Indeterminate due to pharmacological stress Chest Pain none HR Response To Exercise BP Response To Exercise atorvastatin,zetia,losartan Confirmed by fellow Dana Osuna ([id number]) on 09/26/2019 2:27:18 PM Confirmed by MD HUSSEIN, MAURY ([id number]) on 09/29/2019 6:07:21 PM Performing Organization Address City/State/[place] Phone Number GE MUSE ECG 12 lead (09/26/2019 11:47 AM CDT) Specimen Narrative Performed At Ventricular Rate 54 BPM GE MUSE Atrial Rate 54 BPM P-R Interval 220 ms QRS Duration 86 ms Q-T Interval 428 ms QTC Calculation(Bazett) 405 ms P [place] 66 degrees R [place] 32 degrees T [place] 59 degrees Sinus bradycardia with 1st degree A-V bl ock Anteroseptal infarct , age undetermined Abnormal ECG When compared with ECG of 27 Jun 2018 02 :47, No significant change was found Confirmed by Funmilayo STEVE MICHAEL ([id number]) on 0 7:40:27 AM Procedure Note Interface, External Ris In - 09/29/2019 7:40 AM CDT Ventricular Rate 54 BPM Atrial Rate 54 BPM P-R Interval 220 ms QRS Duration 86 ms Q-T Interval 428 ms QTC Calculation(Bazett) 405 ms P [place] 66 degrees R [place] 32 degrees T [place] 59 degrees Sinus bradycardia with 1st degree A-V bl ock Anteroseptal infarct , age undetermined Abnormal ECG When compared with ECG of 27 Jun 2018 02 :47, No significant change was found Confirmed by Funmilayo STEVE MICHAEL ([id number]) on 09/29/2019 7:40:27 AM Performing Organization Address City/State/Zipcode Phone Number [facility] Myocardial Perfusion Pet/CT (Rest & Stress) (09/26/2019 11:42 AM CDT) Specimen Narrative Performed At FINAL REPORT [facility] PROCEDURE: MYOCARDIAL PERFUSION PET/CT I MAGING (Rest/Stress) CPT CODE: 03231, [id number] INDICATION: Preop risk stratification CARDIOVASCULAR PROFILE: CAD History: VT, stent Symptoms: None Risk Factors: Hypertension, hyperlipidem ia, tobacco BMI: 23.2 Medications: Atorvastatin, Zetia, losart an STRESS PROTOCOL: Pharmacologic stress was achieved with a 10-second intravenous infusion of regadenoson 0.4 mg. The radi opharmaceutical was administered 30 seconds after the start of the regadenoson infusion. IMAGING PROTOCOL: Limited low-dose CT imaging was performe d for attenuation correction. 39.5 mCi of Rb-82 chloride was injected intravenously at rest, and gated PET images were obtained. Then, 39 .2 mCi of Rb-82 chloride was injected intravenously at peak stress, a nd gated PET images were obtained. Image quality is good. REST FINDINGS: HR: 52/min BP: 109/59 mmHg Prelim. EKG: Sinus bradycardia, first-de gree AV block, anteroseptal infarct. Perfusion: There is a small, mild, perfu gali defect in the apex. Wall Motion: Normal (LVEF 60%). LV Volume: Normal. RV Volume: Normal. STRESS FINDINGS: HR: 76/min (48% of MPHR) BP: 113/54 mmHg Prelim. EKG: No ischemic changes. Symptoms: Dyspnea (treatment not require d). Perfusion: There is a small, mild, perfu gali defect in the apex. Wall Motion: Normal (LVEF 63%). LV Volume: Not significantly changed fro m rest. IMPRESSION: 1. Abnormal study. 2. Abnormal myocardial perfusion. There is a small, mild, fixed perfusion defect in the apex. 3. Normal resting LVEF, which does not d eteriorate with pharmacologic stress. 4. Normal extracardiac tracer distributi on. 5. There is no prior study for compariso n. Signed: Sinan Abdi MD Report Verified Date/Time: 09/26/2019 15:20:15 Reading Location: [address] Med Reading Room Procedure Note Interface, External Ris In - 09/26/2019 3:22 PM CDT FINAL REPORT PROCEDURE: MYOCARDIAL PERFUSION PET/CT I MAGING (Rest/Stress) CPT CODE: 24456, [id number] INDICATION: Preop risk stratification CARDIOVASCULAR PROFILE: CAD History: VT, stent Symptoms: None Risk Factors: Hypertension, hyperlipidem ia, tobacco BMI: 23.2 Medications: Atorvastatin, Zetia, losart an STRESS PROTOCOL: Pharmacologic stress was achieved with a 10-second intravenous infusion of regadenoson 0.4 mg. The radi opharmaceutical was administered 30 seconds after the start of the regadenoson infusion. IMAGING PROTOCOL: Limited low-dose CT imaging was performe d for attenuation correction. 39.5 mCi of Rb-82 chloride was injected intravenously at rest, and gated PET images were obtained. Then, 39 .2 mCi of Rb-82 chloride was injected intravenously at peak stress, a nd gated PET images were obtained. Image quality is good. REST FINDINGS: HR: 52/min BP: 109/59 mmHg Prelim. EKG: Sinus bradycardia, first-de gree AV block, anteroseptal infarct. Perfusion: There is a small, mild, perfu gali defect in the apex. Wall Motion: Normal (LVEF 60%). LV Volume: Normal. RV Volume: Normal. STRESS FINDINGS: HR: 76/min (48% of MPHR) BP: 113/54 mmHg Prelim. EKG: No ischemic changes. Symptoms: Dyspnea (treatment not require d). Perfusion: There is a small, mild, perfu gali defect in the apex. Wall Motion: Normal (LVEF 63%). LV Volume: Not significantly changed fro m rest. IMPRESSION: 1. Abnormal study. 2. Abnormal myocardial perfusion. There is a small, mild, fixed perfusion defect in the apex. 3. Normal resting LVEF, which does not d eteriorate with pharmacologic stress. 4. Normal extracardiac tracer distributi on. 5. There is no prior study for compariso n. Signed: Sinan Abdi MD Report Verified Date/Time: 09/26/2019 1 5:20:15 Reading Location: [address] Reading Room Performing Organization Address City/State/Zipcode Phone Number [facility] 2D Echo W/Doppler(CW/PW/Color) (09/26/2019 9:57 AM CDT) Pathologist Sig nature Ejection Fraction [facility] ECHO HEARTLAB [facility] Specimen Narrative Performed At Transthoracic Echocardiography Report (T TE) [facility] ECHO HEARTLAB [facility] Demographics Patient Name ANA SAUNDERS Date of Study 09/26/2019 Gender Male Visit Number [id number] Race Unknown Room Number 922 Number Date of 1955 Referring Physician Adriel Lamb Age 64 year(s) Communication Signals Intelligence Robyn Ramos [facility] Interpreting Rasheed maguire MD Physician Procedure Type of Study TTE procedure:2DECHO W DOPPLER(CW/PW/COLOR) (NHUNG) Indications:Acute Chest Pain/ Suspected CAD. Clinical History CAD. Contrast Medium: Definity. Height: 66 inches Weight: 64.86 kg (143 lbs) BSA: 1.73 m^2 BMI: 23.08 kg/m^2 HR: 60 bpm BP: 116/62 mmHg Summary The left ventricle is chamber size (by vol index) is normal (male - LVED vol - 34-74ml/m2). Normal LV wall thickness. The following segment(s) appear akinetic: apical anteroseptum . The other segments contract normally. LVEF by Toribio's method of disk assessment is lower limits of normal (50-55%) . Unable to estimate peak systolic PA pressure; inadequate TR velocity signal. Signature Findings Left Ventricle The left ventricle is chamber size (by vol index) is normal (male - LVED vol - 34-74ml/m2). Normal L V wall thickness. The following segment(s) appe ar akinetic: apical anteroseptum . The other segments contract normally. LVEF by Toribio's method of di sk assessment is lower limits of normal (50-55%) . Left Atrium LA size is normal (16-34 ml/m2) . Right Ventricle The right ventricular chamber size and systolic function are within normal limits. Right Atrium RA size is normal. Aortic Valve Mild AoV cusp thickening. Mitral Valve Mild mitral regurgitation. Mild MV leaflet thickening. Tricuspid Valve TV structure is normal. Unable to estimate peak systolic PA pressure; inadequate TR velocity signal. Pulmonic Valve Normal PV structure appears normal by available view s. A trace of pulmonary regurgitation. Aorta Aortic root size (SInus of Valsalva diameter) is norm al . Pericardium No pericardial effusion is visualized. IVC/SVC/PA/PV/Pleural The estimated RA pressure by IVC dynamics 5-10mmHg . Chambers/Structures Left Atrium LA Dimension: 3.9 cm LA Area: 19.85 cm^2 LA Volume: 53.8 ml LA Vol. Index: 31 ml/m^2 Left Ventricle LVIDd: 4.73 cm LVEDV:88.43 ml LVIDs: 3.05 cm LV Septum Diastolic: 0.84 cm LV PW Diastolic: 0.84 cm LV FS: 35.5 % LVEDV Toribio's:108.33 ml LVESV Toribio's:50.52 ml LVEDVI: 63 ml/m^2 LVEF Toribio's: 53.4 % LVESVI: 29 ml/m^2 LVOT Diameter: 2.05 cm Aorta Ao Root S of Munira.: 2.93 cm Doppler/Quantitative Measurements Mitral Valve MV Peak E-Wave: 0.6 m/s MV Peak A-Wave: 0.81 m/s E/A Ratio: 0.74 Peak Gradient: 1.45 mmHg Deceleration Time: 251.2 msec MV Raymond. Peak: LVOT Peak Velocity: 1.32 m/s Peak Gradient: 6.94 mmHg Mean Velocity: 0.88 m/s Mean Gradient: 3.65 mmHg LVOT Diameter: 2.05 cm LVOT VTI: 26.4 cm LVOT Area: 3.3 cm^2 LVOT SV:87.09 ml LVOT CO: 5.23 l/min LVOT CI: 3.02 l/min/m^2 Procedure Note Interface, External Ris In - 09/26/2019 12:55 PM CDT Transthoracic Echocardiography Report (TTE) Demographics Patient Name ANA SAUNDERS Date of S markody 09/26/2019 Gender Male Visit Number [id number] Race Unknown Room Numb er 922 Number Date of 1955 Referring Physician Adriel Lamb Age 64 year(s) Sonograph er [facility] RDCS Interpret ing Rasheed Juares MD Physician Procedure Type of Study TTE procedure:2DECHO W DOPPLE R(CW/PW/COLOR) (NHUNG) Indications:Acute Chest Pain/ Suspected CAD. Clinical History CAD. Contrast Medium: Definity. Height: 66 inches Weight: 64.86 kg (143 lbs) BSA: 1.73 m^2 BMI: 23.08 kg/m^2 HR: 60 bpm BP: 116/62 mmHg Summary The left ventricle is chamber size (by vol index) is normal (male - LVED vol - 34-74ml/m2). Normal LV wall thick ness. The following segment(s) appear akinetic: apical anteroseptum . The other segments contract normally. LVEF by Toribio's method of d isk assessment is lower limits of normal (50-55%) . Unable to estimate peak systolic PA pre ssure; inadequate TR velocity signal. Signature Findings Left Ventricle The left ventric le is chamber size (by vol index) is normal (male - LVED vol - 34-74ml/m2). Normal LV wall thickness. The following segment(s) appear akinetic: apical anteroseptum . The other segments contract normall y. LVEF by Toribio's method of disk assessment is lo wer limits of normal (50-55%) . Left Atrium LA size is alexa l (16-34 ml/m2) . Right Ventricle The right ventri cular chamber size and systolic function are wit hin normal limits. Right Atrium RA size is alexa l. Aortic Valve Mild AoV cusp th ickening. Mitral Valve Mild mitral regu rgitation. Mild MV leaflet thickening. Tricuspid Valve TV structure is normal. Unable to estima te peak systolic PA pressure; inadequate TR ve locity signal. Pulmonic Valve Normal PV struct ure appears normal by available views. A trace of pulmo nary regurgitation. Aorta Aortic root size (SInus of Valsalva diameter) is normal . Pericardium No pericardial e ffusion is visualized. IVC/SVC/PA/PV/Pleural The estimated RA pressure by IVC dynamics 5-10mmHg . Chambers/Structures Left Atrium LA Dimension: 3.9 cm LA Area: 19.85 cm^2 LA Volume: 53.8 ml LA Vol. Index: 31 ml/m^2 Left Ventricle LVIDd: 4.73 cm LVEDV:88.43 ml LVIDs: 3.05 cm LV Septum Diastolic: 0.84 cm LV PW Diastolic: 0.84 cm LV FS: 35.5 % LVEDV Toribio's:108.33 ml LVESV Toribio's:50.52 ml LVEDVI: 63 ml/m^2 LVEF Toribio's: 53.4 % LVESVI: 29 ml/m^2 LVOT Diameter: 2.05 cm Aorta Ao Root S of Munira.: 2.93 cm Doppler/Quantitative Measurements Mitral Valve MV Peak E-Wave: 0.6 m/s MV Pe ak A-Wave: 0.81 m/s E/A R atio: 0.74 Peak Gradient: 1.45 mmHg Decel eration Time: 251.2 msec MV Raymond. Peak: LVOT Peak Velocity: 1.32 m/s Pea k Gradient: 6.94 mmHg Mean Velocity: 0.88 m/s Azeb n Gradient: 3.65 mmHg LVOT Diameter: 2.05 cm LVO T VTI: 26.4 cm LVOT Area: 3.3 cm^2 LVO T SV:87.09 ml LVOT CO: 5.23 l/min LVO T CI: 3.02 l/min/m^2 Performing Organization Address City/[facility]/Zipcode Phone Number [facility] Carcinoembryonic Antigen (CEA) (09/25/2019 5:54 PM CDT) Pathologist Sig nature CEA, SERUM 5.5 (H) 0.0 - 5.0 ng/mL [facility] Specimen Blood Narrative Performed At Vending Machine Host/Hostess ID - [id number] [facility] Performing Organization Address City/[facility]/Zipcode Phone Number [address] [address] CENTER Carbohydrate antigen 19-9 (CA 19-9) (09/25/2019 4:13 PM CDT) CA 19-9 12 <34 U/mL [facility] Comment: [facility] This test was performed using the Siemens Chemilumines cent method. Values obtained from different assay methods cannot be used interchangeably. CA19-9 levels, regardless of value, should not be inte rpreted as absolute evidence of the presence or absence of disease. Specimen Blood Narrative Performed At Performing Lab [facility] [address] [place] [address] Jacqueline Taylor MD, PhD, TIMOTEO Performing Organization Address City/State/Zipcode Phone Number [facility] [place] [address] [facility] [id number] abdomen/pelvis with IV contrast (09/25/2019 9:43 AM CDT) Specimen Narrative Performed At Addendum Begins [facility] REPORT STATUS:A Addendum: Wall thickening is seen involving the de scending duodenum. Please correlate clinically. Signed: Lyle Fierro MD Report Verified Date/Time: 09/25/2019 13:21:39 Reading Location: [facility] C013Y CT Body R eading Room Addendum Ends FINAL REPORT ABDOMINAL AND PELVIS CT DATED 09/25/2019 CLINICAL INFORMATION: Unlisted Reason for Exam Abdominal distension TECHNIQUE: Axial images of the abdomen and pelvis were obtained from diaphragm to the pubic symphysis with GI and intravenous contrast. This exam was performed according to our departmental dose-optimization program, which include s automated exposure control, adjustment of the mA and/or kV according to patient size and/or use of interactive reconstruction technique. COMMENT: There is trace left pleural eff usion and bibasilar subsegmental atelectasis. Liver and spleen are normal in size with out focal abnormality. Gallbladder is distended. No gallstone i s not seen. Moderate biliary dilatation is noted with common bile claudette t measuring 11 mm in size. Pancreas and adrenals are unremarkable. Pancreatic duct is normal in caliber. Both kidneys are normal in size and func tioning. A 1-2 mm stone is seen in the inferior pole left kidney. S everal stones are seen in the right kidney measuring up to 3 mm in siz e. No hydronephrosis or hydroureter is present. The small and large bowel are unremarkab le. Appendix is not visualized. Nonspecific lymph nodes are seen in the periaortic, aortocaval retroperitoneum and at the root of the m esentery. The largest lymph node measures approximately 0.9 x 1.3 cm . IMPRESSION: 1. Trace left pleural effusion and bibas ilar subsegmental atelectasis. 2. Biliary dilatation. Recommend clinica l correlation or follow-up with MRCP examination. 3. Nonobstructive bilateral renal stones . Signed: Lyle Fierro MD Report Verified Date/Time: 09/25/2019 10:51:28 Reading Location: [facility] B1 C013Y CT Body R eading Room Procedure Note Interface, External Ris In - 09/25/2019 1:23 PM CDT Addendum Begins REPORT STATUS:A Addendum: Wall thickening is seen involving the de scending duodenum. Please correlate clinically. Signed: Lyle Fierro MD Report Verified Date/Time: 09/25/2019 1 3:21:39 Reading Location: [facility] B1 C013Y CT Body R eading Room Addendum Ends FINAL REPORT ABDOMINAL AND PELVIS CT DATED 09/25/2019 CLINICAL INFORMATION: Unlisted Reason f or Exam Abdominal distension TECHNIQUE: Axial images of the abdomen and pelvis were obtained from diaphragm to the pubic symphysis with GI and intravenous contrast. This exam was performed according to our departmental dose-optimization program, which include s automated exposure control, adjustment of the mA and/or kV according to patient size and/or use of interactive reconstruction technique. COMMENT: There is trace left pleural eff usion and bibasilar subsegmental atelectasis. Liver and spleen are normal in size with out focal abnormality. Gallbladder is distended. No gallstone i s not seen. Moderate biliary dilatation is noted with common bile claudette t measuring 11 mm in size. Pancreas and adrenals are unremarkable. Pancreatic duct is normal in caliber. Both kidneys are normal in size and func tioning. A 1-2 mm stone is seen in the inferior pole left kidney. S everal stones are seen in the right kidney measuring up to 3 mm in siz e. No hydronephrosis or hydroureter is present. The small and large bowel are unremarkab le. Appendix is not visualized. Nonspecific lymph nodes are seen in the periaortic, aortocaval retroperitoneum and at the root of the m esentery. The largest lymph node measures approximately 0.9 x 1.3 cm . IMPRESSION: 1. Trace left pleural effusion and bibas ilar subsegmental atelectasis. 2. Biliary dilatation. Recommend clinica l correlation or follow-up with MRCP examination. 3. Nonobstructive bilateral renal stones . Signed: Lyle Fierro MD Report Verified Date/Time: 09/25/2019 1 0:51:28 Reading Location: [facility] B1 C013Y CT Body R eading Room Performing Organization Address City/[facility]/Rustcode Phone Number GE RIS REPORT OF PROCEDURE - ENDOSCOPY URL (09/24/2019 1:33 PM CDT) Narrative Performed At This result has an attachment that is no t available. Iron, TIBC, % sat. (without ferritin) (09/23/2019 2:56 PM CDT) Pathologist Sig nature Iron 43.0 40.0 - 160.0 [facility] ug/dL [facility] TIBC 123 (L) 250 - 450 ug/dL [facility] Iron % Saturation 35 20 - 55 % [facility] Specimen Blood Narrative Performed At Vending Machine Host/Hostess ID - [facility] Performing Organization Address [facility]/Rustcoid Phone Number [address] [address] CENTER Ferritin (09/23/2019 2:56 PM CDT) Pathologist Sig nature Ferritin 167.29 5.00 - 275.00 ng/mL [facility] Specimen Blood Narrative Performed At Vending Machine Host/Hostess [facility] Performing Organization Address [facility]/Rustcoid Phone Number [address] [address] CENTER Troponin I (09/23/2019 5:35 AM CDT) Pathologist Sig nature Troponin I 0.02 0.00 - 0.03 ng/mL [facility] Specimen Blood Narrative Performed At Troponin I (TnI) levels must be interpreted [facility] in the context of the presenting symptoms and the clinical findings. Elevated TnI levels indicate myocardial damage, but are not specific for ischemic heart disease. Elevated TnI levels are seen in patients with other cardiac conditions (including myocarditis and congestive heart failure), and slight TnI elevations occur in patients with other conditions, including sepsis, renal failure, acidosis, acute neurological disease, and persistent tachyarrhythmia. Vending Machine Host/Hostess ID - [id number] Performing Organization Address [facility]/Rustcode Phone Number [address] [address] [place] Lipid panel (09/23/2019 5:35 AM CDT) Pathologist Sig nature Triglycerides 164 mg/dL [facility] Cholesterol 142 mg/dL [facility] [place] HDL 23 mg/dL [facility] [place] LDL Calculated 86 mg/dL [facility] [place] Specimen Blood Narrative Performed At [facility] Reference Range: [facility] Low Risk <150 Borderline 150-199 High Risk 200-499 Very High Risk >=500 Cholesterol Reference Range: Low Risk <200 Borderline 200-239 High Risk >240 HDL Cholesterol Reference Range: Low Risk >=60 High Risk <40 LDL Cholesterol Reference Range: Optimal <100 Near Optimal 100-129 Borderline 130-159 High 160-189 Very High >=190 Vending Machine Host/Hostess ID - [id number] Performing Organization Address City/[facility]/Zipcode Phone Number [address] [address] [place] PT/aPTT (09/16/2019 2:32 PM CDT) Pathologist Sig nature Protime 14.1 11.9 - 14.[address] [facility] INR 1.12 <=5.90 [facility] PTT 39.8 (H) 22.5 - 36.[address] [facility] Specimen Blood Narrative Performed At Effective 2018: PT Reference Range [facility] Change New: 11.9-14.2 Previous: 11.7-14.7 RECOMMENDED COUMADIN/WARFARIN INR THERAPY RANGES STANDARD DOSE: 2.0-3.0 Includes: PROPHYLAXIS for venous thrombosis, systemic embolization; TREATMENT for venous thrombosis and/or pulmonary embolus. HIGH RISK: Target INR is 2.5-3.5 for patients wiht mechanical heart valves. Performing Organization Address City/State/Zipcode Phone Number [place] [phone] [place] [address] CENTER Lipase (09/16/2019 2:32 PM CDT) Pathologist Sig nature Lipase 107 (H) 8 - 78 U/L [facility] Specimen Blood Narrative Performed At Vending Machine Host/Hostess VIRGEN Myers [facility] Performing Organization Address City/State/Zipcode Phone Number [address] [address] [place] Comprehensive metabolic panel (09/16/2019 2:32 PM CDT) Protein, Total 7.7 6.0 - 8.3 [facility] gm/dL [facility] Albumin 3.7 3.5 - 5.0 [facility] g/dL [facility] Alkaline 99 40 - 150 U/L [facility] Phosphatase [facility] Total Bilirubin 0.5 0.2 - 1.2 [facility] mg/dL [facility] Sodium 134 (L) 136 - 145 [facility] meq/L [facility] Potassium 3.0 (L) 3.5 - 5.1 [facility] meq/L [facility] Chloride 90 (L) 98 - 107 [facility] meq/L [facility] CO2 25 22 - 29 [facility] meq/L [facility] BUN 16 7 - 21 mg/dL [facility] Creatinine 1.01 0.57 - 1.25 [facility] mg/dL [facility] Glucose 72 70 - 105 [facility] mg/dL [facility] Calcium 9.8 8.4 - 10.2 [facility] mg/dL [facility] AST 15 5 - 34 U/L [facility] ALT 9 6 - 55 U/L [facility] EGFR Comment: [facility] CLINICAL DATA TO MEDICAL CENTER CALCULATE ESTIMATED GFR. Specimen Blood Narrative Performed At Vending Machine Host/Hostess VIRGEN Machuca DONIS Myers [facility] Performing Organization Address City/State/Zipcode Phone Number [facility] [address] [place] [address] CENTER after 12/24/2018 Advance Directives For more information, please contact: [phone] Code Status Date Activated Date Inactivated Comments Full Code 09/23/2019 4:58 AM 10/08/2019 1:34 PM This code status was determined by: Patient Full Code 06/27/2018 2:40 AM 07/01/2018 1:03 PM This code status was determined by: Patient
--- OUTSIDE RECORDS SUMMARY | 2019-12-25 11:56 | XMS REPORT | Continuity of Care Document ---
:1955 Author Organization [facility] t Address [address] [place] [address] Care Team Providers Name Role Phone Pcp, No Primary Care Physician Unavailable Lv Quiros MD Attending Clinician CARY BURDEN Attending Clinician Unavailable Liat Burden MD Attending Clinician Merchant HUGHES Attending Clinician Ana María Aguilera MD Attending Clinician Feliciano Garces MD Attending Clinician Bhavik HUGHES Attending Clinician Cy Mckeon MD Attending Clinician Unavailable Vernon Mcduffie MD Attending Clinician Jian HUGHES Attending Clinician Shorty Cruz MD Attending Clinician Elana NORTH Attending Clinician Ariana HUGHES Attending Clinician Lucius Trimble MD Attending Clinician Ana Cuenca MD Attending Clinician Mary Anne HUGHES Attending Clinician MARY ANNE Attending Clinician Unavailable RASHEED FRANCO Attending Clinician Unavailable FELICIANO GARCES Admitting Clinician Unavailable RASHEED FRANCO Admitting Clinician Unavailable Problems Condition Condition Condition Status Onset Resolution Last Treating Co mments Source Name Details Category Date Date Treatment Clinician Date Acute Acute Disease Active [facility] - syndrome syndrome 00:00: Medica l 00 Center 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 8-20 Selina kes - noma noma 00:00: Medical 00 Center 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 8-20 Selina kes - benny benny 00:00: Medical malnutriti malnutriti 00 Ce nter on (Soto: on (Soto: less than less than 60% of 60% of standard standard weight) weight) Acute Acute Disease Active [facility] duodenal duodenal 8-20 [facility] - ulcer with ulcer with 00:00: Me dical gastric gastric 00 Center outlet outlet obstructio obstructio n n Coronary Coronary Disease [facility] artery artery 8-20 [facility] - disease disease 00:00: Medical involving involving 00 Cent er [place] coronary coronary artery of artery of [place] heart with heart with angina angina pectoris pectoris Abdominal Abdominal Disease Active [facility] pain pain 8-19 [facility] - 00:[facility]: Medical 00 Center 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 8-18 [facility] - disease disease 00:00: Medical 00 Center SANTOS (acute SANTOS (acute Disease Active [facility] kidney kidney 8-18 [facility] - injury) injury) 00:00: Medical 00 Center Volume Volume Disease Active [facility] depletion depletion 8-18 [facility] - 00:00: Medical 00 Center Non-intrac Non-intrac Disease Active [facility] table table 8-18 [facility] - vomiting vomiting 00:00: Medica l with with 00 Center nausea nausea 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Active [facility] ulcer with ulcer with 5-24 Selina kes - hemorrhage hemorrhage 00:00: Me dical but but 00 Center without without obstructio obstructio n n Anemia, Anemia, Disease Active [facility] secondary secondary 5-24 [facility] - 00:00: Medical 00 Center Hiatal Hiatal Disease Active [facility] hernia hernia 5-24 [facility] - 00:[facility]: Medical 00 Center Melena Melena Disease Active [facility] -24 [facility] - 00:[facility]: Medical 00 Center Hyperlipid Hyperlipid Disease Active [facility] emia emia -24 [facility] - 00:00: Medical 00 Center GIB GIB Disease Active [facility] (gastroint (gastroint 06-27 Selina kes - estinal estinal 00:00: Medical bleeding) bleeding) 00 Cent er Coronary Coronary Disease Active [facility] artery artery - [facility] - disease disease 00:00: Medical involving involving 00 Cent er [place] kas[place] coronary coronary artery of artery of [place] heart heart without without angina angina pectoris pectoris Chest pain Chest pain Disease Active [facility] with high with high 6-13 [facility] - risk for risk for 00:00: Medica l cardiac cardiac 00 Center etiology etiology History of Past Illness Condition Condition Condition Status Onset Resolution Last Treating Co mments Source Name Details Category Date Date Treatment Clinician Date Acute Acute Disease Resolve 2019-10-08 2019-10-[address] blood loss blood loss d 8-20 00:00:00 08:05:38 [facility] - anemia anemia 00:00: Medical 00 Center Allergies, Adverse Reactions, Alerts This patient has no known allergies or adverse reactions. Family History Family Member Diagnosis Comments Start Date Stop Date Source Natural father Heart disease [facility] Natural mother Diabetes [facility] Natural mother Hypertension [facility] Social History Social Habit Start Date Stop Date Quantity Comments Source Sex Assigned At [facility] Tobacco use and 2019-10-01 2019-10-01 Former user [facility] ukmaureen - exposure 00:00:00 00:00:00 Medical Center Alcohol intake 2019-10-01 2019-10-01 Current drinker [facility] Rajwinder Castellano - 00:00:00 00:00:00 of alcohol Medical Center (finding) Tobacco Comment 2018-06-28 2018-06-28 PAST SMOKER [facility] St Sarah horta - 00:00:00 00:00:00 (SMOKED FOR [address] [id number] - [id number]) Alcohol Comment 2018-06-28 2018-06-28 ON OCCASION BARBARA Garcia ukmaureen - 00:00:00 00:00:00 [facility] Smoking Status Start Date Stop Date Source Former smoker 2019-10-01 00:00:00 2019-10-01 00:00:[address] [facility] [facility] Medications Ordered Filled Start Stop Current Ordering Indication Dosage Frequency Signature Comments Components Source Medication Medication Date Date Medication? Clinician (SIG) Name Name ezetimibe Yes 10mg QD Take [address] (ZETIA) 10 10-07 by mouth [facility] - mg tablet 11:34: daily. Medica l 37 Center niacin Yes 500mg Take [address] [facility] (SLO-NIACIN 10-07 mg by [facility] - ) 500 mg 11:34: mouth 2 Medica l tablet 37 (two) Center times daily with breakfast and dinner. losartan Yes 50mg QD Take [address] (COZAAR) 50 10-07 by mouth Luke s - MG tablet 11:34: daily. Medica l 37 Center omeprazole Yes 40mg QD Take [address] (PRILOSEC) 10-07 by mouth [facility] - 40 MG 11:34: daily. Medical capsule 37 Center simvastatin Yes 40mg QD Take [address] (ZOCOR) 40 10-07 by mouth [facility] - MG tablet 11:34: nightly. [facility] katie 37 Center traMADoL 2020- No 50mg Take [address] 100 mg Tab 10-07 by mouth Luke s - 00:00: 23:59 every 6 Medical 00 :00 (six) Center hours as needed for up to 10 days. Max Daily Amount: 200 mg traMADoL 2019- No 50mg Take [address] 100 mg Tab 10-07 by mouth Luke s - 00:00: 00:00 every 6 Medical 00 :00 (six) Center hours as needed for up to 10 days. Max Daily Amount: 200 mg traMADoL 2019- No 50mg Take [address] 100 mg Tab 10-07 by mouth Luke s - 00:00: 00:00 every 6 Medical 00 :00 (six) Center hours as needed for up to 10 days. Max Daily Amount: 200 mg aspirin 81 2020- No thrombosis 81mg QD Take [address] MG EC 09-15 prevention by mouth Dorcas es - tablet 13:56: 00:00 after PCI daily. Med ical 53 :00 Center sucralfate 2019- No 1g Q.25D Take [address] (CARAFATE) 09-15 09-10 mLs (1 g Luke s - 100 mg/mL 00:00: 23:59 total) by Me dical suspension 00 :00 mouth 4 Center (four) times daily for 30 days. pantoprazol 2020- No 20mg QD Take [address] e 09-15 tablet (20 [facility] - (PROTONIX) 00:00: 00:00 mg total) M edical 20 MG 00 :00 by mouth Center tablet daily for 20 days. ondansetron 2019- No 4mg Take [address] (ZOFRAN) 4 09-15 tablet (4 Dorcas es - MG tablet 00:00: 00:00 mg total) Me dical 00 :00 by mouth Center every 6 (six) hours for 7 days. promethazin Yes TAKE ONE [facility] e 09-10 (1) TO TWO [facility] - (PHENERGAN) 00:00: (2) Medica l 25 MG 00 TABLET(S) Center tablet BY MOUTH EVERY FOUR TO SIX HOURS NEEDED. erythromyci Yes TAKE [facility] n base 7-28 [...] 40mg Take [address] [facility] e 07-1211 by mouth. [facility] - (PROTONIX) 00:00: 00:00 Medica l 40 MG 00 :00 Center tablet Vital Signs Vital Name Observation Time Observation Value Comments Source Systolic blood 2019-10-08 10:57:00 119 mm[Hg] [facility] pressure Medical [place] Diastolic blood 2019-10-08 10:57:00 62 mm[Hg] [facility] Heart rate 2019-10-08 10:57:00 55 /min [facility] Body temperature 2019-10-08 10:57:00 36.89 Nidia [facility] Respiratory rate 2019-10-08 10:57:00 18 /min [facility] Oxygen saturation in 2019-10-08 10:57:00 100 /min [facility] - Arterial blood by Medical Ce nter Pulse oximetry Body weight 2019-09-25 05:00:00 65.182 kg [facility] BMI 2019-09-25 05:00:00 23.19 kg/m2 [facility] Body height 2019-09-23 03:44:00 167.6 cm [facility] Procedures Procedure Date / Time Performing Clinician Source Performed REPORT OF PROCEDURE - 2019-10-10 07:40:50 Provider, Default [facility] ENDOSCOPY SCAN [facility] RHYTHM STRIP - SCAN 2019-10-10 07:40:48 Provider, Default [facility] POCT-GLUCOSE METER 2019-10-08 10:59:[facility]OV[facility] ([facility] & 2019-10-08 08:53:00 Lindsey Owens [facility] - REF LABS) [facility] POCT-GLUCOSE METER 2019-10-08 07:13:00 [facility] BASIC METABOLIC PANEL (7) 2019-10-08 03:40:00 Cisco Zelaya CH, [facility] MAGNESIUM 2019-10-08 03:40:00 Cisco Zelaya [facility] PHOSPHORUS 2019-10-08 03:40:00 Cisco Zelaya [facility] POCT-GLUCOSE METER 2019-10-07 22:15:00 Marlon Garces [facility] POCT-GLUCOSE METER 2019-10-07 15:20:00 Marlon Garces [facility] POCT-GLUCOSE METER 2019-10-07 12:45:00 Beti Tosinwade [facility] POCT-GLUCOSE METER 2019-10-07 07:24:00 [facility] ([facility]MO[facility] ONLY[facility] 2019-10-07 03:37:00 Nathalie [facility] BASIC METABOLIC PANEL (7) 2019-10-07 03:37:00 Cisco Zelaya CH, I [facility] MAGNESIUM 2019-10-07 03:37:00 Cisco Zelaya [facility] PHOSPHORUS 2019-10-07 03:37:00 Nathalie Cisco [facility] POCT-GLUCOSE METER 2019-10-06 22:14:00 Beti [facility] POCT-GLUCOSE METER 2019-10-06 14:47:00 Beti [facility] POCT-GLUCOSE METER 2019-10-06 10:57:00 Beti [facility] POCT-GLUCOSE METER 2019-10-06 06:55:00 Beti [facility] CBC (HEMOGRAM ONLY) 2019-10-06 03:29:00 Nathalie [facility] BASIC METABOLIC PANEL (7) 2019-10-06 03:29:00 Cisco Zelaya CH, I [facility] MAGNESIUM 2019-10-06 03:29:00 Nathalie Cisco [facility] PHOSPHORUS 2019-10-06 03:29:00 Nathalie Cisco [facility] POCT-GLUCOSE METER 2019-10-05 21:33:00 Beti [facility] POCT-GLUCOSE METER 2019-10-05 15:10:00 Beti [facility] POCT-GLUCOSE METER 2019-10-05 11:18:00 Jade Garcesannawade [facility] POCT-GLUCOSE METER 2019-10-05 07:27:00 Beti Jadeweslacowade [facility] CBC (HEMOGRAM ONLY) 2019-10-05 03:54:00 Nathalie Cisco [facility] BASIC METABOLIC PANEL (7) 2019-10-05 03:54:00 Cisco Zelaya CH, I [facility] MAGNESIUM 2019-10-05 03:54:00 Cisco Zelaya [facility] PHOSPHORUS 2019-10-05 03:54:00 Cisco Zelaya [facility] POCT-GLUCOSE METER 2019-10-04 21:23:00 Beti carolynwade [facility] POCT-GLUCOSE METER 2019-10-04 15:20:00 Beti [facility] [place] [facility] POCT-GLUCOSE METER 2019-10-04 11:38:00 Beti [facility] [place] [facility] POCT-GLUCOSE METER 2019-10-04 07:33:00 Beti Tosinwade [facility] CBC (HEMOGRAM ONLY) 2019-10-04 04:07:00 Nathalie Cisco [facility] BASIC METABOLIC PANEL (7) 2019-10-04 04:07:00 Cisco Zelaya CH, I [facility] MAGNESIUM 2019-10-04 04:07:00 Cisco Zelaya [facility] PHOSPHORUS 2019-10-04 04:07:00 Nathalie Cisco [facility] POCT-GLUCOSE METER 2019-10-03 21:05:00 Beti [facility] [place] [facility] POCT-GLUCOSE METER 2019-10-03 16:01:00 Beti [facility] POCT-GLUCOSE METER 2019-10-03 12:22:00 Marlon Garces [facility] XR ABDOMEN / KUB 1 VIEW 2019-10-03 08:51:00 Nathalie [facility] POCT-GLUCOSE METER 2019-10-03 07:22:00 Beti [facility] CBC (HEMOGRAM ONLY) 2019-10-03 03:40:00 Nathalie [facility] BASIC METABOLIC PANEL (7) 2019-10-03 03:40:00 Cisco Zelaya CH, I [facility] MAGNESIUM 2019-10-03 03:40:00 Cisco Zelaya [facility] PHOSPHORUS 2019-10-03 03:40:00 Nathalie [facility] POCT-GLUCOSE METER 2019-10-02 20:41:[facility] TRANSFUSION SERVICE REPORT 2019-10-02 18:01:02 Provider, [facility] POCT-GLUCOSE METER 2019-10-02 15:57:[facility] INTRAOPERATIVE PATH REPORT 2019-10-02 15:11:56 Provider, [facility] PULMONARY FUNCTION - SCAN 2019-10-02 11:30:22 Provider, [facility] CBC (HEMOGRAM ONLY) 2019-10-02 03:43:00 Nathalie [facility] BASIC METABOLIC PANEL (7) 2019-10-02 03:42:00 Cisco Zelaya CH, I [facility] MAGNESIUM 2019-10-02 03:42:00 Nathalie Cisco [facility] PHOSPHORUS 2019-10-02 03:42:00 Nathalie [facility] HEPATIC FUNCTION PANEL 2019-10-02 03:42:00 Nathalie Cisco [facility] S [facility] POCT-GLUCOSE METER 2019-10-01 22:29:00 Athreya, Khannan [facility] BLOOD GAS, ARTERIAL 2019-10-01 09:50:34 Froy [facility] GLUCOSE-STAT LAB 2019-10-01 09:50:34 [facility]H&H[facility] - STAT LAB 2019-10-01 09:50:[facility] CALCIUM, IONIZED 2019-10-01 09:50:34 [facility] PH, ARTERIAL 2019-10-01 09:50:34 Froy [facility] FUNGUS CULTURE + SMEAR 2019-10-01 09:19:09 Cy Mckeon [facility] ANAEROBIC CULTURE 2019-10-01 09:19:09 Cy Mckeon [facility] SURGICALLY OBTAINED CULTURE 2019-10-01 09:19:09 Bobby Quiros [facility] - + GRAM STAIN [facility] ANESTHESIA SPINAL BLOCK 2019-10-01 08:38:58 Froy [facility] TISSUE EXAM 2019-10-01 08:34:44 Cy Mckeon [facility] PREPARE RBC 2019-10-01 07:40:00 Cy Mckeon [facility] WHIPPLE 2019-10-01 07:15:00 Cy Mckeon [facility] CBC W/PLT+MANUAL DIFF 2019-10-01 04:47:00 [facility] BASIC METABOLIC PANEL (7) 2019-10-01 04:47:00 Kimmy Molina [facility] HEPATIC FUNCTION PANEL 2019-10-01 04:47:00 Kimmy Molina [facility] MAGNESIUM 2019-10-01 04:47:00 Kimmy Molina [facility] PHOSPHORUS 2019-10-01 04:47:00 Kimmy Molina [facility] TYPE AND SCREEN, AUTOMATED 2019-10-01 04:47:00 [facility] WITH PLATELET COUNT + 2019-10-01 04:47:00 Kimmy Molina [facility] MANUAL DIFF [facility] (CELLAVISION MANUAL DIFF) 2019-10-01 04:47:00 Kimmy Molina [facility] CBC W/PLT COUNT & AUTO 2019-09-30 18:00:00 Sarai Aguilera [facility] BASIC METABOLIC PANEL (7) 2019-09-30 17:59:00 Sam Aguilera i [facility] DLCO (SINGLE BREATH 2019-09-30 14:22:00 Yomaira, [facility] - DIFFUSION) [facility] LUNG VOLUMES 2019-09-30 14:22:00 Yomaira, Andrwe [facility] SPIROMETRY 2019-09-30 14:22:00 Yomaira, [facility] SARS-COV2/RT-PCR ([facility] & 2019-09-30 09:19:00 Rosalina Purcell [facility] REF LABS) [facility] REPORT OF PROCEDURE - 2019-09-29 11:43:09 [facility] ENDOSCOPY [facility] TISSUE EXAM 2019-09-29 11:20:00 [facility] COLONOSCOPY,BIOPSY 2019-09-29 10:40:00 [facility] SARS-COV2/RT-PCR ([facility] & 2019-09-28 17:39:00 Issac Cortes [facility] - REF LABS) [facility] ELECTROLYTE PANEL 2019-09-28 11:30:00 Sarai Aguilera [facility] BASIC METABOLIC PANEL (7) 2019-09-27 12:47:00 Sam Aguilera i [facility] CBC W/PLT COUNT & AUTO 2019-09-27 09:39:00 Sarai Aguilera [facility] CT CHEST WITH IV CONTRAST 2019-09-26 21:45:00 Cisco Zelaya CH I [facility] CT ABDOMEN/PELVIS WITH & 2019-09-26 21:45:00 Cisco Zelaya [facility] - WITHOUT IV CONTRAST [facility] er POTASSIUM 2019-09-26 13:55:00 Sarai Aguilera [facility] TREADMILL 2019-09-26 11:50:31 Unknown, Hl7 [facility] - TOLERANCE(NON-NUCLEAR Medical Ce nter TREADMILL) ECG 12-LEAD 2019-09-26 11:47:29 Unknown, Hl7 [facility] NM MYOCARDIAL PERFUSION 2019-09-26 11:42:00 Adriel Lamb [facility] - PET/CT (REST & STRESS) [facility] enter 2D ECHO W/ DOPPLER 2019-09-26 09:57:36 Adriel Lamb [facility] (CW/PW/COLOR) [facility] CARCINOEMBRYONIC ANTIGEN 2019-09-25 17:54:00 Kimmy Molina [facility] (CEA) [facility] CARBOHYDRATE ANTIGEN 19-9 2019-09-25 16:13:00 Sam Aguilera i [facility] (CA 19-9) [facility] CT ABDOMEN/PELVIS WITH IV 2019-09-25 09:43:00 Vandana Cuenca [facility] BASIC METABOLIC PANEL (7) 2019-09-25 05:07:00 Cary Burden [facility] MAGNESIUM 2019-09-25 05:07:00 Cary Burden [facility] CBC W/PLT COUNT & AUTO 2019-09-25 05:07:[address] [facility] REPORT OF PROCEDURE - 2019-09-24 13:33:12 Vandana Cuenca [facility] - ENDOSCOPY [facility] TISSUE EXAM 2019-09-24 13:15:00 Vandana Cuenca [facility] UPPER ENDOSCOPY 2019-09-24 12:30:00 Vandana Cuenca [facility] ENTEROSCOPY,BIOPSY 2019-09-24 12:30:00 Vandana Cuenca [facility] POTASSIUM 2019-09-24 11:06:00 [facility] BASIC METABOLIC PANEL (7) 2019-09-24 04:51:00 AltaCary melchor [facility] MAGNESIUM 2019-09-24 04:51:00 AltaCary [facility] CBC W/PLT COUNT & AUTO 2019-09-24 04:51:[address] [facility] DIFFERENTIAL [facility] FERRITIN 2019-09-23 14:56:00 [facility], [facility] IRON, TIBC, % SAT. (WITHOUT 2019-09-23 14:56:00 Sen, [facility] - FERRITIN) [facility] SARS-COV2/RT-PCR ([facility] & 2019-09-23 12:19:00 Sen, [facility] REF LABS) [facility] BASIC METABOLIC PANEL (7) 2019-09-23 05:35:00 AltaCary melchor Liat [facility] MAGNESIUM 2019-09-23 05:35:00 AltaHeidiCary Liat [facility] LIPID PANEL 2019-09-23 05:35:00 AltaCary melchor [facility] TROPONIN I 2019-09-23 05:35:00 AltaCary Liat [facility] CBC W/PLT COUNT & AUTO 2019-09-23 05:35:00 AltaCary melchor I [facility] PT/APTT 2019-09-16 14:32:00 [facility] LIPASE 2019-09-16 14:32:00 [facility] COMPREHENSIVE METABOLIC 2019-09-16 14:32:00 [facility] CBC W/PLT COUNT & AUTO 2019-09-16 14:32:00 Dacia Treviño [facility] Plan of Care Planned Activity Planned Date Details Comments Source Future Scheduled 2029-09-28 Screening for BARBARA Treviño es - Test 00:00:00 malignant neoplasm of Medica l Center colon (procedure) [code = 068615282] Future Scheduled 2022-09-22 Lipid panel BARBARA Snell s - Test 00:00:00 (procedure) [code = [facility] 29893224] Future Scheduled 2019-10-07 INFLUENZA VACCINE (#1) [facility] [place] - Test 00:00:00 [code = INFLUENZA Medical Ce nter VACCINE (#1)] Future Scheduled [address] [facility] Castellano - Test 00:00:00 0-64 YRS (1 of 1 - Medical C enter PPSV23) [code = PNEUMOCOCCAL VACCINE 0-64 YRS (1 of 1 - PPSV23)] Encounters Start End Encounter Admission Attending Care Care Encounter Source Date/Time Date/Time Type Type Clinicians Facility Department ID 2019-12-19 2019-12-19 Office MILTON Quiros [id number] 15:36:52 16:07:07 Visit Lv Tinajero [id number] 2019-10-22 2019-10-22 Office MILTON Quiros [id number] 15:52:30 16:30:52 Visit Lv Tinajero [id number] Results Test Description Test Time Test Comments Results Result Comments Source Tissue Exam 2019-12-23 16:05:00 Test Item Value Reference Range Interpretation Comme nts Case Report (test code = 104) Surgical Pathology Report Case: [id number] Authorizing Provider: Lv Quiros II, MD Collected: 10/01/2019 08:34 AM Ordering Location: [facility] PERI[facility] Received: 10/01/2019 08:38 AM SERVICES Pathologist: Ronnie Pope MD Specimens: A) - Liver, right hepatic lobe wedge resection B) - Gallbladder ADDENDUM (test code = 3381) [id number]h5OfqECwsCS qWJbheTHhiqAduc17tVD2bN79HZ1kRYRvGvT5JI WwmkI0Ynk3THBoEAByiGMgU652f7ldg0ecrcYoj FE0tRzcVHWgVKFzYHxpGDJeFaNyQYeiYTSrYPUz REYqPGglFGKutP7vFMnco2OjNFF6pcYhGEKiuaQ zaNjlXUYne2RorIQqt0AbaX1niF8zwJwuyG2ksO JgpOD0ymroRPfSOypwtRLcsAqvFiFqv5TdVZggy RD9O0wjRbJoNYarVQsUJNYoYOKps0QaaR4kUZH8 oCwffMIoVJIaCjReefUdAJHof6DrSIAab10fcZa uanXnTK2uHGDaYCIplTvlYHVeqBAnw0Wts8TtqJ jtBTB7pCGnSBgqOdDacXumbRJqHR5wJFQeTBPej ZLblq7coZGdnfBnPWahhxI1ocPcCO6aZTUjOLIg apCxZKtbVQXmBBvITPZpm4SisypuNe3uUZXhbQE ih6MyKG5FNoSqvt85PHznkbU0MPEwwOPaKu5kxG SqIL2gJNXllBDgkYYrZYQaj3RcMRuohYfrKXJja t5oetfkbJIkS03feBCrrAKvHCGkfkfhTJCzTIoL QXvqHM48MNR3FO03I7fjQTUnNYfrcvMcc0vnmua lQQDgEVYLXpnlNN53UQZ8VX94U9awONMaHPmmeo Ton1idbfttCIJmQXFKSyjjJP98UNA3EJ25O5pyR YXfZGuuwkSjd8rdhmnwXQQyML2MXpqcHQ90MZR8 BU53P0moICPgGIjlieDlz5obzhluXJVkgUSwKMf ZYsZIbuQovjQlHVPunFmzqhvtRh7nsI2fvyVhFq ToeOBzAIWzRNB5uSXwb8Cbs65fs7UwUR2MQKBmz 0ElcV9yHuFpu6rloBHeXmOyrWpmpItdv3SpzVpe ke9gYCYwaBozbCKqxH5coHYefIxraPetqNnusXY rJRKXFXdiFuZjHHvreoOeHJPbUPL0P9XydAykms XlvN6whIcjRFXzo9UnZRnMGpUrffGteyWgUEUtz Uvpjn3oGImkf8MnmnMjoAw7zxWmiV56jVAiza14 IYHmOAHsroVuRTXpJGKsjC3vyUPdlLD4dI9aCRH egaUzE2mjqaliBYyfK95wxjWwLENea10ya9q4mL WjXT2coTmvQSGgkZ8cOYzkablkeIV7YDHvBZPjb eIeVONbLAQigZ7cZWEbKGWyXYUjYVXkDBCtWKQf nlKkJNJoiVstJFT2DNW0pJ8hOfVjuIGaUXEbsfL PkI74qs0wkXC7n7QkIK8tu2JeyRTbmTOuqYNlaJ IqBklrUETtMTgjEXffpFWte0vpv5BkT8iovGhqs PW7ARNuf3Okr8HpXOZomzQko3EsOGMorvDpsWKo AMLetqFjco4eysEkWXOjLUGdL5UdyirtwWsxhlH vZSUqpw5jmjGcVST0BVQTAMONeC3dAJNzRXfoZD drANm3fLRByOI3VD7cYYZomKnqkT2ojAFSUSVzc sV0o4B3OuDZwZBwTHCzks11ZGNsLH9aR7wbITSj FGLabtZcfKOtz0SjQHDwnHT2zYFrWI2ZGfACm22 oRWBwVXKSdfMaQJHnaTfnmTS8tuI7hJ0uNrRUrN NaGbUQLGeizbZzGBLebh5qwxXhJKMkZWIze4Zub EOpqNCbneIlJ4Qdl7JkVICgwv95BUybnADmox53 AJ8yX3Uqv5OhiU3lYAmwYHBex4DftIPevGUkAKQ fq4ZzC2hhotgyWQongDDtjY1eQVMsDSw0KESjk0 NsNCZem2ZhZbDbyhIlZCGjWMVyLONtgX07MGJ4j TorvVkcrsOcDF7cXEAptfPzFXDuEWOngU5sCMaq toAePLNldqE3q9T0WSbeUBMfykXqVfnrWCW0tqG yliL5bERfH3elpoivRFszWTEgt4MfgL9qkCVTrY Gxy7KipDJxiTVVtYGkNX5fyoAhJX3rLIP7YNaoU MLKWVPpEWtiCNGmOJT2OVctPoqvFQK1veUoNXNu g8NzTOwaY4ynZ33lwMfhaKg4rLDwhOiyhOZywZQ jFWExssM2e9L1MYXua5SlcxscKBDnbxgwWPHbLT z5FzUrANI9TIB1FFR6L0qxBHYfbQJpvI== DIAGNOSIS (test code = 3220) j2yrhZHlFPQcx6xuGRNhqZYlDiYiOkYdDsEaBl p soTFfDYdycqTvVHeed4ZrC7EnQpVoOVxvshGiOP JjXneutqoaCSXqDHI5ooZbEANgNVsaBXIwXLblF y0dbBCehAwmDtVyRHDba6jhuhKYhnnebXj2a7jo NUNdUxV0jGJzQBiyY2jkixBwbWIoKADtCTf5gO1 1UKGvjN7bgOMbSOmyfaIjXfH9VHzhRQCjXlN1TF TbbXYcJWIjV5jdINHfZZqkEBWrFHljcDAmYOP6m Xzyk9H7oCEttSSnhGfaHgCtQrWiEFBYy7FfRVb5 bTqsC8MgSWYsWfC0fVJnLPWgREnuKYPkTPDyvdG 5tQ63TJrkgtX4hKRnu1Hmo63hq132mK7cmUIyNR Q8XKGdMZMgmELeTUIuDHH2YXMwmWUpS0f0LvYff YNhR8R8GhBlvRQiC2H9JpJbkGBlE7O6NrZflDPb QJZrrLZzQy8xsCAujTIskp6qmw56BHX4w6TykXx uOJM3DTH3EuAvLh9lzGAkEWPsWA9uCsDtrTYsBF Jqkb93pPgdFEzdbkMvnY4uDaIaUHImtIXvQBHoR C5pwIPpDIElbP9rewseRZUhZoUxweazIJTnqDlg xxIzKn3doBdvRTW5IAhpM8qkzB9pSxU4KBbiJ1f yaN9eCTx7UOktyJY2YSPftQ5eWP7lniwyp0qdBt MsRN0fyescr6egDgVhBD3qpqn7s1jkYgOaWP5pf wctq9miPdBvASxnVBGdnutyPOYhs2OlbnuvXIIw r6IuY2ZaaOnqM20dpUkjB64iIHGvzDaejO7zuHo vjY7vXvVjOnAaJXpfwPpepJWuocnrXPncleUvOQ acgkylOGLsGCtcH0jjNpXnQERboPbzNEfqz0FyV UCwFDPbErWlLN0kFOiYMPXsXRKTA1pZDJpZJqOv T1EMK1VtPxRRSUTUDG8OYgvbGKMdASNaHTZXA1q FJQJAGGZBKlWOMOUZM9COCQkHVEFTQI3UX2MLL6 cKL18EHWJSI5SXTcCLRMmJWHVFFuRWTsFGWKeSK EVELlxwYXJccGFyIEIuIEdBTExCTEFEREVSLCBD JS8MMPKPY5WMV1MHAWo9KDCudhDgGJ4vXVcRBXR WPYVDDrvRJDDEE1xCR7wOYLaCUTIjkyIeAX0lS2 qIIRSKQQVJY4cYY2yXWENdfpXbKL3gB57NLRcZH ZYDVA4YIIObLW8CJXBRGvWkMw1BVA6ITUOFERDT WMCgJLTWWu0IWCPJMD1JZVAaHZOtRRxwtPQnjZk gjpGhRIazs5PoBLtpUNPfEK4nsRwjFDUzYJ1yHQ YpH9zfqR9luew1AoOdELWfGqQ0DRLyrjR3Wct8K CFjIJtza2iza4JiPQIvFUh6wFjqDzTaFYXdw3lr nnYsIdYcXYJtTYWcKTYwdUHcN302i7dmf3tndvX pnUX6GTUiYSW3NJotsaKliaV9KVtvjHOzFaP5IR lvjmPrFHsvvvOgshNpFfq4YMBwQ757YGO3vHgnz 4dcYTB2OEXxBRLgHcImOu9qaJOdK865RHEpZLGX LONxjIj6JLFpkzXgfaXlfRNJy813A837d0mbNAL issPioHdSjpgul4acV901RRAdbYAzqlVrKmLrWA OxpDJlyLD7NHIhFV4aojixABvzLTakLTXebuP1I OWnhJHgQ1CfUAIkUV6vgmhqURJ6GQtoXPCaAPH3 DyKmFMJnv8Blwjr4JrFoat0clq94ELF3e2WvlTi jDUY6KIA2TzIaZw5cqDWoUJKgTD9mEwXxrTQnDZ Dzgf85gGbhTOzzCPA1PLLinuPvh7Htw1apMnDtf lQhE5iiX1RzBZUeTGYnHTIrZwNothGry5Ndz2Xn jHCdpQp6n9ujRDVrTSBhyRlql3vdSCH5SXOryGW gN5jovG8pZHIvKK3oievxw2dkGYlsKAxgOEBymH V0xyL2FOOfmNAaB9KbzR6zRDPwQXksVGJqxcu6C tWePs2vkRAjwIxqGBlyHbpcUYmzAYIxpkFyngCb cGduZGVjXHBsYWluXHBsYWluXGYwXGZzMjRccWx cbGFuZzEwMzNcaGljaFxmMVxkYmNoXGYxXGxvY2 opBtUiBySsTib1HMLxoQEuKILlHuq2BNJkfHIpU RMFwNniqY3yGQSutGuqnR5faSR4KHZnbxJtaITR lL2nIOOWqZ5yGpH0SuCsPhE2JNT6HGBjlEBjlE1 = CPT Code(s) (test code = 3357) e9okuFZwSNBitFDtJnPkAKGdIKXni8snFUYz bGF tRlBpRnTzJwHaRxesgTAeKTNaKhEuw2ujd462dR Dzw2pcUAQnFqX9qPCqHCTpjHVcL668u6apv6pff tKzqZX3GQYyIVO9GWznjfXdgzA7QDvbkHQkJyX1 PPtldiWvNLyvemZnhwCgLgl6JEXyF710HIG2mMi vz3ieNJB7NFWvLQJvNpHfPm4wrEAdD161JCTdSR TWFUPvnIy0KWCbtcApjuIyjXCDm699L013t6beL QHvjtVipBeBofgoa3fpR287JDPhyAObhmDzJjXy GMGvpXUyoLG4RLUhWZ6xzjlqCoBtNJ8vozohJhQ jXH7sonf2DwOvHR8uuzlvHoEmIPodROQkmnibRG Kjj5OucnicMD9zD2Myk1Z0oN3jaREzTIDlqQAuY wPzZZHhvp0boOCuQXyhb9SbGSC1rtY3oZKtfVPt FLWzER81Kgfux4PgWxtzIVJ5MZVqihRft0Ysi1k rLiZmfvVvD2ocQ4YrOFYxSPBwHNDtDcWnkbMoo4 Khq2SijOUkxXo4l3awSDVpTWZdoZaey6guYKF1V CRhL7D0tBHsl0amOXbxOVIhySB2zkusPFmgGWBr ysZ5iabmXZerIKOufXQ6vfwjLBkhLZPiVbF1tpw jMDtbBYKaUIE1GQnbg765HXC8RUgmNfqsGKscAT BnbmNvbnRccGduZGVjXHBsYWluXHBsYWluXGYwX FLcGrSdmEjmgDppvS0jIyIuVvHjMSlyWE0iIYAq F7ntsVUnHTCjOXTuZ5bwGyLsfM5kbShsRMwrubC xGLg8FfWuMOJ7MJFyRsniKWydMXHaxVBgmJ== CLINICAL HISTORY (test code = 3356) c9dkaYLkSUMvjZWiXyAbGECsMSHnk6m cZGVmbGF mVzKvYnNvFvLwYlamkJXxBSFeKiNfu1qzk179xE Bxi3kgHNWzScW5pIAcXPXmcIEuN048o8ran2yzt nItqGC7HIBhXWV4GTqkpmIazvW4TGndzDOjGuC5 JKecioYzLIfsekLelnUeHqv3KHZiB012JWM0xNj yy8nuOXO0DCBxIMXiEuXpHm5siHMxQ168QIJaAQ VHUBEkjUz7HBUjbnBfabJpgKUJt560F002i4ciO GXcfvCcaSwSgibgv0nqQ086CVActRQcplPwSnWl GBHiiBVzhME9SQQqOX6uwcicHuYaJK8cmizlTrK dOT7qehs2GmGdDH7tgxiiFwTyECndSGPcloyaBA Cyj4BptwyeRO1qX4Mam5B1zH9bsJCoHNMejDHhW eAaPRAilo2gkRSfVMfml6HcCXM2daO1zFVgnWWj EZDyCQ01Axjjz7GkTjdxRDS2BUSmisTvq7Jak4r tKoTkgiGkA1ltT0ZtHVJwTNRgQTRsNbMsmuYpw2 Swt0FmeWPceFc7g9mvKYDaSJLnjWacc8scCEX7R ZBuU9S3yCSml5wkDSmzIOGfjNN3mocmVShoFCCp jdX4qgbnRZuxKUCwbOK0tooiLDsvHQRrRlP2ofg tWFxsCUFlEDA7RFxxs277QXO6PSjePkvgPRokWY BnbmNvbnRccGduZGVjXHBsYWluXHBsYWluXGYwX DTpOmPoiKhhrFwnhU8zLqDbQqDuFRgkCT8nBVJx B4roxGMxDIPfUWBnH1zgDvEpzV1lmEwqSJwlmpN fPW5jmIlcirPeyLEfBE7irAWqoXDsMxVgkZ8qJG 51bSBccGFyfQ== SPECIMEN SOURCE (test code = 3377) o6nvnLGmVYWosGRtXjFeKHBqPTZvh3ww ZGVmbGF cLoSdNzAxBdPbRjfyrXYuZHWxEzFjy6bxd754gP Gdm7siXMUuViC8wCTlKWNrdDUvR123RIPvFUisq 9vgr2HoTONeaXRwy2I5YCTYalxkeCo6sTskV13x w3O6GgkpX5zvTRJcDGYpB5EnKU6bIXUuPzx6SMO 4FZA4ABAtWCDeC7VoGR6xCXFhbXAtGUl0p3sbaA hpNCMiYCJ2m2lbCBabisPjVC8qcj8agOp4s3bhs pIsRZJwYIRfkDKVOMBdT6UwrGvpOu3eyFb0sYyk KeicONE9Fqv1NF8rnb35arn0lUeuVEZxacuqYkF 7CRyvYDUrnmwhQRb8NGusLXQsbLdgMAshJSJsei ovNXiwXCIlgSkpXHgqKKWnCqjkORoeUUWkIPH5O Cmlv505DNN5CJubh3ilc0erlRGaGsc0RZEyYvFl YhpbFBsps2Mmw9brIDYtto3hSKO4yZLcqHeaa3A 7nVEkDBYbnKDhmxKjXVQaVqN1RRmgDS3lsr21YP TxMUF7rp1wxVLlrZhkvjGumUBpGKexF4TaBQQkx 825SWLeY3BnEPAiu4S9jkWuFbNnKREguSH1qsR3 ISBnXLp7wPJkjtH8osMtzKVbQ4ebyA50YaPfaZP eQ2KaqF86IpOzgHRaH3RvgF93IySaiTIwJ0YczA 74OdQkxURoLWLetNUcPv3reEJlkLDdk9TodTTgQ HmsV68sk562UBAwctLeD0iuiWQbdxgxsBMlgsiz HPeoehT4FXFeXNWoEEqwUMRqCZWzCpNlbWGxWjH sUjClkRrejPpcZUnsYpCmZRItEGymY7tyHdVpLx PrPSVBStDeCUy3BOGlLGBgB1v5STtaLfDjy0RmG 9RrIJQujiIWXxCvJ1JavDGsrZRlVQVsMEDanw8= GROSS DESCRIPTION (test code = 3366) d7uuoDLnQWIjaFQeGlQzEPDgYYOjb5 lcZGVmbGF jPeSlWuCuHfDiZgeyvUZjSONuTvSgl1ium855zZ Osx2mwVFTrHjL1fDHdWXAazRRoL337DNLjDJfrt 1who1WpTSIptLNvu4Q2URRHdhtzdFi3fHxbM55m v6E5InjeM2wpFMApCVSeV1FyCD1sVWWgBvr2JNP 1NII4NEDjGCIsM2FaIW9zZZSpeEDuHFp6i0yjjY edELOiZPR0y7nvMHypioSdVM2rec1opCg1s1yht uUlQXDjHTVzeYONTYPmZ9PkjQbfSa9oqZf1wFno XoqhCVC8Adr0GI4qqj25afo3lDvwFJSzuypzPlB 1RQdqQXNkwpnaTGk2QMgaWXAlfGyiJUlvWYIoby kmXQygILOapGlsGPrdCGKsJrvxXNbzYZEwGCB5O Tqrc739JOF4KQtnn4qqh8uyjGDnXfi7WKWoHuDv HuonTZqsh3Ikz1hiGSJwzu0eKZE6kRYzmWhim9F 0sAAqHZBkgLEazfUeETFnWkV3ITsuGY0tqr25IK BbOXD8ao1qyYMvcEcmxfCgkHFqGMzqL7OtMJFzi 716FVHhO4GjKXUhj6Z1oxLzJqTcNEXxjZS4qdX9 XZRyEFw9yONccfS2tfTijRRfS9mtcX92ZcQhfXT eR1QwlB76JuFgnQLcE2TldP59WcNcsRBqH5JblL 49GlXkyMTsRRXccEYmUy6fyAMdhWRry6SjfBFpD XepU96lb170JLFeilDbS9onmODcthqdrDQxfnin LOxvhfY5UBLoLJEoSPshQROeJRMhXrOjnRBmMzM kGhUebIhniWouQXwjVnZlPHIrZWmaT3waWqHhWp QfXKNALdLWKAMjbRTySMJzeuKvtXYbc6DoDwPip uTbPXTcW2Ude78bjCJsYRevZDQ1cYNwRMFaDFPa FPPhGS00F0QoohUhSPcbjXCibAAebPDuMYDxpwQ lhbHuCiHvPBIjKXLjyHb4RYGuAKmuMEOkGN78LX tqSPRoQWueCS9bDEiiRT0bRTCxKYznagOjORxkJ FrnOfHLsQQiA6Bez1GvSYXwpROhxAN0oyHoOYJv ZaJ2POVpTrI0OLPiFSFcqCgfvWstUBWrYtseFIJ nTNgeLMipkUxoqRVnVjFWvLZusCXzN9zbPRuhMU nmt1CdJCWmsCNgUDHlSVP3pDFuf0WjB4qlTM1ff KIrk1JehEUesHnfu8VtyYovuoJxCGQyUEPgafNq jRTjjn89qmOqb14gS0IeGN58zjVdODEbosHlzN8 pPnPGrCEws5KwD8clMD3lyXAzWD17bUWrxAjmp0 JbrEq7fPHaHbsuYDKnhQRmAPTeN5Ght07qB53hL ZnitYBuBNAjKoE2DVGxWKA9MVI9ujDbPQJedC1c KQHjepRgokDgS7KbVPRip0RyzIaunhFcdUSgJCL dBnX0MVXdqGBtrmUltsCnJlY0vUYxr6YqJ6hgUG 3we0ZluNt6hGCyWGMrmcVdejOcQ1UyDKHxxFkpJ BZrO4fjWYqgFEMkwcgpQMPwIl4wOyEzYEc5OZUd EwDsi1wtNAdrXwAnLDUou9z0eBY8vMQovMW6xXQ drWynRK6voTWgIM4LElJgdzBjBetakGsjuSAzZL LdQiQirdUpC96mc3mpxFJgy4XbFW4loE55LJZ8Z LtvxTeceBPeVJZwGVyjMON9BIIiVjZ5KJRiY95e RUtdlFEqLMvensOpSEHfvTHzCSQoA0qbrTcyARY 1T8IjEXRkULYnTUMvi0EufEShWATdnaJjguDiew BhbmQgZGlzdGVuZGVkLiAgVGhlcmUgaXMgYSAxI RniIV81EKhpSY92QXAaPR8hfx9ufw3pwgY7EUP2 h2CkAeDxoVZ9LRp8eWXqCR3kJXByDQRpITMrDYn tYhqmHNMiisIayzNjbWHoUSHgqA7hzgK0BCCtFG DiFOWjdN3mLR35BMKrj9DxyWYeEnChuiOvogDyf LoiUwPtHv6kT8jhnDRgcVDkmiEdcsSuaZLwyfGt KadhPRTyvfN3jQPme8EqM5npSD9ej7IjkMwyRSS eKJDfnVHkHRZqplSbuE1jlb2pMOyzDE38W08yBL BpcyBncmVlbiBhbmQgdHJhYmVjdWxhdGVkLiBUa RFbv3VytRI0gOiks51oi1SxkQVbWS5tSCQjVeEO fyMnzx9wdsRdTITpj69fQWYaTYJiEALyyGyflVT gSmOJEKXwKTEncpFssQq1YLHsYKW5aR9mjoDump Xlv3BdmDh4vMSlBtehQYPddKCvXJQhQ2Eoh36sS 09bMSsfYUFvDoB9LPT9a4EpOoIgfTW6TO6dwdzn yqlwMI9jGaUwHQGbhyUoJPMxnR9isZXde8DyTPH ukIHaA4MgJNzsCGDbPlN3KPjybVeqdCUhWJSzTQ cmeHmfgEBxMWCzbkUPxBXep7KqTJdoQTTaKNBMW GGiARYQBNxFE9CMHCpsPCL2 INTRAOPERATIVE CONSULTATION (test code = c2yaqWYcWWZbg HCnMeOoUEOsECCqs7pjTVZorDR 4140) qOcBsJdCxTwTiLylwkLVfSUPaVyZcv6sfl259lD Duz3fjACKbNnQ0jXGuURCcpRTzL497ZKJmJImjp 7uqa0FjJKMgtYRnu0W9OQFJdofrkLk5jKyzI30j o9S2IxvdP6ubQROqUVFxD9QtTR4mACBvYfe5SWZ 6LWO1RAStIECdZ0ZzOZ5eMDEsuDKdXAw4f9spkK okEONdIOX1p2epRGosayJbFR8oys1jiJe4e9utv qJaESOcRVMllOZQFNLrI4DavQfqHo2beEj7qAvw IggbKCY4Aqy5QQ0pds88siu0iKxdZNBotrtcPgD 4QSbjUXEvqbrgKIz0RTzkHFPxiRmvJGueKORrix arFMeyFOGepOxkSPzrJWKbPndcPXyzXKAkZRF5M Rcix632NCE0AKfdk6smz5xtoMEfToj2EKNyOoCk WqjkLAfqx6Dfw4iiQVMdto0yQTI3rAQezZkhw8N 5yNPlBFRpiAZhcqJeXWAtRlL0UYrrEI1unv38VO TiBPM0wp6vnMVhiFtmlxAyoMCcVJsxY0RvWEVcy 770RWCsM3FuTGWmy1R3hyVjOuOqNPObnUY5ihG0 EGZaFKp4vJUapjL1fnHpaZYaD6ydfE97IvSwyQM dW4JmuZ13VaCyxTCaH3YbcR71OuVbrAYcK6GozP 88AgLooVTfXNXotPEoTy4xvVIoyKIqw5NdlGJyB CfqX77iw901RTPdlbUwE9ehyKJoydqrqCFoeols FGxogeZ3BJXkEPJbEIixTMVaQFTiGcTqtHKkGfC mBaEwdBoelPkkEPcwUnLvNRWuBVynB3paIaDeHk MyMCBBLiBMSVZFUiwgQklPUFNZOlxwYXIgICAtI FJMTZ5WM8HDS2dJT47UHTunNRKeaLRmNFZshJ6z sMLzRQA7GVLaQcPMdAEgtBYfHMNnLHLhAqALDT7 hRcGaNZ0lm66tIK0jTa3gPOpoYZUaCAm6UMelKS J9 MICROSCOPIC DESCRIPTION (test code = n4mobZDrHLHmqHVuXwVjOGKtBNQho3 [place] [address]) aXmBaOcRcAqCzIytikUVnZZUmVeUrs2qea081hA Txm0aeANApXaV5yDKwYZWeuVJrM229e0cty4uol nMmrQH4LPPnOAN9DRfufzWfodA8TQygzQGlIoP2 QCfmhzSeMAqnmbFjfiJtOvp7BKXyE572SGI0qLt oy6hvOAE2JPKtOSPlKjDpLv3cqVBvC759FNIlPD GLXPCiiZb8LAPbfgOhzxBzsPHUy732Y829j3unC BRmkxAydQqIkliyp9hdD609OLFpePOxbrNxKaRt UEUzbHAefPI8EXSqTP2buhdxZjAvBS1ifokkPqO yEE5rjgx3ShMaYB7ucyiiZxQePJmrZZZhfzdjPQ Xgg7AwswnrOE0xT2Cfj3B9bU6prMJfBMSloDDmL oPuXBSwga8iwNTdQGwtf5MgOES9smG9xJIiyKWq SRFdWT95Oicdj8QyZpjzTEV2OKEoknYyx5Leu1j fCeRqpbZjA6hpC8OsFMSlBOXoWDCeBxYwyfAzq4 Omd5FfdQOfhHh4n5iuHYVkKJOayRczu6caGKC7N SMwF0H4rQTsz1htJZqiOBThwFW2ialxAWkeGFPz dsX2zgkyWVzoFFNemAS2upujKHqkUDVdGhN2kkq aVCceAHJbMBV2MFdcd571ZPZ4QRapHrfwIYaeVN BnbmNvbnRccGduZGVjXHBsYWluXHBsYWluXGYwX EQdFfPeyVvmvVkukM6lMeMoQnPsFPuyUB7yMJBy S1lcyPSsARTuCNAzH6swLfAzsK1nhXkyWUxiedF kZSTzvpDdth2nGBadUJT6 [facility] [id number] 16:05:00Surgical Pathology Report Case: [id number] Authorizing Provider: Lv Quiros II, MD Collected: 10/01/2019 08:34 AM Ordering Location: [facility] PERIOPER[facility]IVE Received: 10/01/2019 08:38 AM SERVICES Pathologist: Ronnie Pope MD Specimens: A) -Liver, right hepatic lobe wedge resection B) - Gallbladder The addendum is being issued to report the results of immunohistochemistry (IHC) testing for Mismatch Repair (MMR) Proteins,which has been performed on this cancer at the request of the attending physician. The diagnosis remains unchanged. IHC testing for all four MMR proteins was performed on selected block with appropriate controls.MLH1: Intact nuclear expressionMSH2: Intact nuclear expressionMSH6: Intact nuclear expressionPMS2: Intact nuclear expressionIHC Interpretation: No loss of nuclear expression of MMR proteins:low probability of microsatellite instability-high (MSI-H). There are exceptions to the above IHC interpretation. These results should not be considered in isolation, and clinical correlation with genetic counseling may be considered to assess the need for germline testing. Immunohistochemistry disclaimer:The immunohistochemistry test was developed and its performance characteristics determined by [facility], Pathology Laboratory. It has not been cleared or approved by the U.S. Food and Drug Administration. The FDA has determined that such clearance or approval is not necessary. The test is used for clinical purposes. It should not be regarded as investigational or for research.This laboratory is certified under the Clinical Laboratory Improvement Amendments of 1988 (CLIA-88) as qualified to perform high complexity clinical laboratory testing. 19147, 66868 [id number] electronically signed by Ronnie Pope MD on 12/23/2019 at 4:05 PMA. LIVER, RIGHT LOBE WEDGE RESECTION: - POSITIVE FOR METASTATIC ADENOCARCINOMA, MODERATELY DIFFERENTIATED.B. GALLBLADDER, CHOLECYSTECTOMY: - MILD CHRONIC CHOLECYSTIS - CHOLESTEROLOSIS - ONE LYMPH NODE POSITIVE FOR METASTATIC ADENO CARCINOMA (02/05) Signing Pathologist Direct Phone Line: [phone] signed by Ronnie Pope MD on 10/03/2019 at 2:43 [id number], [id number], [id number] neoplasm of duodenum A. Liver, right lobe wedge B. Gall bladderA. Received fresh for frozen section labeled with the patient's name, medical record number and "liver" is a 0.5 gm, 2 x 1.3 x 0.3 cm liver wedge. The capsule displays a 0.2 x 0.2 x 0.1 cm, ill-defined, witt plaque. The margin is inked blue, and the specimen isserially sectioned to reveal brown homogeneous parenchyma. The specimen is entirely submitted.Section code:A1FS: Plaque to margin, perpendicular [id number]: Remainder of the specimen submitted perpendicularlyCG/ew B. Received fresh, labeled with the patient's name, MRN and "gallbladder" and consistsof an intact gallbladder (11 x 4.2 x 4 cm) which has a clipped cystic duct. The serosa is dark greenand distended. There is a 1 x 0.6 x 0.5 cm maroon-witt cystic duct lymph node. The gallbladder is opened to reveal an abundant amount of green bile. No choleliths are identified in the specimen or the specimen container. The mucosa is green and trabeculated. The wall thickness is 0.1 cm. No gross lesions are identified. Warehouse Operator sections are submitted.Section codeB1: Cystic duct margin, en fac e and 1 lymph node, bisectedB2: Gallbladder wallChelsea SHAINA Ballard, MIKA ([facility] [place]Sukhwinder LIVER, BIOPSY: - ADENOCARCINOMA Reported by Dr. Pope to Dr. Quiros on 10/01/19, at 0855PerformedFungus culture + [id number] 17:22:00 Test Item Value Reference Range Interpretation Comments Result (test code = No fungus isolated in 6463-4) 28 days Fungus Smear (test No fungal elements seen code = 1406) [facility] [id number] 17:22:00 Test Item Value Reference Range Interpretation Comments CULTURE (BEAKER) (test No fungus isolated in code = 1095) 28 days FUNGUS SMEAR (BEAKER) No fungal elements seen (test code = 1406) SARS-CoV2/RT-PCR (Asymptomatic ONLY)2019-10-08 17:14:00 Test Item Value Reference Range Interpretation Comments SARS-COV2/RT-PCR Negative Not Detected, (test code = Negative, See 15384-6) external report for linked test SARS-COV-2 [facility] PERFORMING LAB (test code = 79580-7) RAFAEL (test code = Negative result for this RAFAEL) test determines that SARS-CoV-2 RNA was not present in the [...] of the Act. Fact Sheet for Healthcare Providers:https://www.[employer]/sites/default/f colette/product/documents/F act_Sheet_HC_Providers_L xjs_JCEV-CdV-0.pdf Fact Sheet for Healthcare Patients:https://www.[employer]sites/default/fi les/product/documents/Fa ct_Sheet_Patients_Lyra_S ARS-CoV-2.pdf Performing Laboratory:[facility] Castañeda[place], [place] [address] [place], [place] [address]ARS-COV2/RT-PCR ([facility])2019-10-08 17:14:00 Test Item Value Reference Range Interpretation Comments SARS-COV2/RT-PCR (test Negative Not Detected, Negative, code = 1352317) See external report for linked test SARS-COV-2 PERFORMING LAB [facility] (test code = 6472691) Negative result for this test determines that SARS-CoV-2 RNA was not present in the specimen above the Limit of Detection (LOD). However, Negative results do not preclude SARS-CoV-2 infection and should not be used as the sole basis for treatment or patient management decisions. Negative results mustbe combined with clinical observations, patient history, and epidemiological information. A false negative result may occur if a specimen is improperly collected, transported or handled. A false negative result should be considered if patient's recent exposures or clinical presentation indicate that COVID-19 (SARS-CoV-2) is likely and diagnostic tests for other causes of illness are negative. Re-testing should be considered in cases of suspected false negatives.The limit of detection for this assay is 800 copies/mL.This SARS CoV-2 test is a real-time RT-PCR test intended for the qualitative detection of nucleic acid from SARS-CoV-2 in a nasopharyngeal swab specimen collected from individuals susp ected of COVID-19 by their healthcare provider.This test has not been Food and Drug [...] is revoked under Section 564(g) of the Act.Fact Sheet for Healthcare Providers:https://www.[employer]/sites/default/files/product/documents/Fact_Shee h_QL_Sizztevxi_Flxe_IRFR-WdO-8.pdfFact Sheet for Healthcare Patients:https://www.[employer]/sites/default/files/product/ documents/Jlrq_Ioopo_Bfyndelh_Hrug_IHWE-FuK-2.pdfPerforming Laboratory:[address], [place] [address]DKW-Lbzxmcx meter 2019-10-08 11:14:00 Test Item Value Reference Range Interpretation Comments POC-Glucose Meter (test 94 mg/dL 70-110 : TE STED AT [facility] code = 1538) [address] [place] [address], [facility] 30: Site Controller/Techni kimberlee ID = [id number] for FroyYolie janay Lab Interpretation (test Normal code = 20573-7) [facility] [id number] 11:14:00 Test Item Value Reference Range Interpretation Comments POC-GLUCOSE METER 94 mg/dL 70-110 : TESTED A T [facility] 6720 (BEAKER) (test code = [place], 1538) [address]: Site Controller/Techni kimberlee ID = [id number] for Alonso Rowe POCT-GLUCOSE [id number] 07:28:00 Test Item Value Reference Range Interpretation Comments POC-GLUCOSE METER 90 mg/dL 70-110 : TESTED A T [facility] (BEAKER) (test code = [place]AV[place], 1538) [address]: Site Controller/Techni kimberlee ID = [id number] for Alonso Rowe Basic Metabolic [id number] 04:44:00 Test Item Value Reference Range Interpretation Comments Sodium (test code = 130 meq/L 136-145 L 2951-2) Potassium (test code 3.7 meq/L 3.5-5.1 = 2823-3) Chloride (test code = 102 meq/L 98-107 2075-0) CO2 (test code = 24 meq/L 22-29 2028-9) BUN (test code = 5 mg/dL 7-21 L 3094-0) Creatinine (test code 0.60 mg/dL 0.57-1.25 = 2160-0) Glucose (test code = 86 mg/dL 70-105 2345-7) Calcium (test code = 7.7 mg/dL 8.4-10.2 L 37630-9) EGFR (test code = [place] [address]-7) CLINICAL DATA T O CALCULATE ESTIMATED GFR. RAFAEL (test code = RAFAEL) Site Controller ID - TALHA W Lab Interpretation Abnormal (test code = 79869-5) [facility] METABOLIC [id number] 04:44:00 Test Item Value Reference Range Interpretation Comments SODIUM (BEAKER) (test 130 meq/L 136-145 L code = 381) POTASSIUM (BEAKER) 3.7 meq/L 3.5-5.1 (test code = 379) CHLORIDE (BEAKER) 102 meq/L 98-107 (test code = 382) CO2 (BEAKER) (test 24 meq/L 22-29 code = 355) BLOOD UREA NITROGEN 5 mg/dL 7-21 L (BEAKER) (test code = 354) CREATININE (BEAKER) 0.60 mg/dL 0.57-1.25 (test code = 358) GLUCOSE RANDOM 86 mg/dL 70-105 (BEAKER) (test code = 652) CALCIUM (BEAKER) 7.7 mg/dL 8.4-10.2 L (test code = 697) EGFR (BEAKER) (test INSUFFIC IENT CLINICAL code = 1092) DATA TO CALCULA TE ESTIMATED GFR. Site Controller ID Sven PALENCIA [id number] 04:39:00 Test Item Value Reference Range Interpretation Comments Magnesium (test code = 2.0 mg/dL 1.6-2.6 86625-7) RAFAEL (test code = RAFAEL) Site Controller ID - TALHA W Lab Interpretation (test Normal code = 85896-6) [facility] 04:39:00 Test Item Value Reference Range Interpretation Comments Phosphorus (test code = 2.3 mg/dL 2.3-4.7 2777-1) RAFAEL (test code = RAFAEL) Site Controller ID Sven PALENCIA W Lab Interpretation (test Normal code = 14848-6) [facility] 04:39:00 Test Item Value Reference Range Interpretation Comments PHOSPHORUS (BEAKER) (test code = 2.3 mg/dL 2.3-4.7 604) Site Controller ID - TALHA [id number] 04:39:00 Test Item Value Reference Range Interpretation Comments MAGNESIUM (BEAKER) (test code = 2.0 mg/dL 1.6-2.6 627) Site Controller ID Sven PALENCIA WPOCT-GLUCOSE [id number] 22:43:00 Test Item Value Reference Range Interpretation Comments POC-GLUCOSE METER 105 mg/dL 70-110 : TESTED A T [facility] (BEAKER) (test code = [facility], 1538) [address]: Site Controller/Techni kimberlee ID = [id number] for JEANNE BONILLA POCT-GLUCOSE [id number] 15:31:00 Test Item Value Reference Range Interpretation Comments POC-GLUCOSE METER 111 mg/dL 70-110 H : TESTED A T [facility] (BEAKER) (test code = [facility], 1538) [address]: Site Controller/Techni kimberlee ID = [id number] for AILIN FARAH POCT-GLUCOSE [id number] 12:56:00 Test Item Value Reference Range Interpretation Comments POC-GLUCOSE METER 102 mg/dL 70-110 : TESTED A T [facility] (BEAKER) (test code = [facility], 1538) 15[address]: Site Controller/Techni kimberlee ID = [id number] for AILIN FARAH POCT-GLUCOSE [id number] 07:35:00 Test Item Value Reference Range Interpretation Comments POC-GLUCOSE METER 93 mg/dL 70-110 : TESTED A T [facility] [address] (BEAKER) (test code = [facility], 1538) [address]: Site Controller/Techni kimberlee ID = [id number] for AILIN BLUM BASIC METABOLIC [id number] 04:53:00 Test Item Value Reference Range Interpretation Comments SODIUM (BEAKER) (test 131 meq/L 136-145 L code = 381) POTASSIUM (BEAKER) 4.0 meq/L 3.5-5.1 (test code = 379) CHLORIDE (BEAKER) 101 meq/L 98-107 (test code = 382) CO2 (BEAKER) (test 25 meq/L 22-29 code = 355) BLOOD UREA NITROGEN 6 mg/dL 7-21 L (BEAKER) (test code = 354) CREATININE (BEAKER) 0.60 mg/dL 0.57-1.25 (test code = 358) GLUCOSE RANDOM 102 mg/dL 70-105 (BEAKER) (test code = 652) CALCIUM (BEAKER) 7.8 mg/dL 8.4-10.2 L (test code = 697) EGFR (BEAKER) (test INSUFFIC IENT CLINICAL code = 1092) DATA TO CALCULA TE ESTIMATED GFR. Site Controller ID - [id number] 04:52:00 Test Item Value Reference Range Interpretation Comments PHOSPHORUS (BEAKER) (test code = 1.8 mg/dL 2.3-4.7 L 604) Site Controller ID - [id number] 04:52:00 Test Item Value Reference Range Interpretation Comments MAGNESIUM (BEAKER) (test code = 1.8 mg/dL 1.6-2.6 627) Site Controller ID - EDASICBC (Hemogram only)2019-10-07 04:28:00 Test Item Value Reference Range Interpretation Comments WBC (test code = 6690-2) 5.3 3.5- 10.5 K/L RBC (test code = 789-8) 2.99 4.63- 6.08 M/L L MCHC (test code = 786-4) 33.3 32.3- 36.5 GM/DL L Hematocrit (test code = 4544-3) 25.2 % 40.1-51 L MCV (test code = 787-2) 84.3 fL 79-92.2 MCH (test code = 785-6) 28.1 pg 25.7-32.2 RDW (test code = 788-0) 13.8 % 11.6-14.4 Platelets (test code = 777-3) 263 150- 450 K/CU MM MPV (test code = 47471-1) 9.4 fL 9.4-12.4 nRBC (test code = 413) 0 0- 0 /100 WBC Lab Interpretation (test code = Abnormal 22814-8) [facility]2019-10-07 04:28:00 Test Item Value Reference Range Interpretation Comments WHITE BLOOD CELL COUNT (BEAKER) 5.3 K/ L 3.5-10.5 (test code = 775) RED BLOOD CELL COUNT (BEAKER) 2.99 M/ L 4.63-6.08 L (test code = 761) HEMOGLOBIN (BEAKER) (test code = 8.4 GM/DL 13.7-17.5 L 410) HEMATOCRIT (BEAKER) (test code = 25.2 % 40.1-51.0 L 411) MEAN CORPUSCULAR VOLUME (BEAKER) 84.3 fL 79.0-92.2 (test code = 753) MEAN CORPUSCULAR HEMOGLOBIN 28.1 pg 25.7-32.2 (BEAKER) (test code = 751) MEAN CORPUSCULAR HEMOGLOBIN CONC 33.3 GM/DL 32.3-36.5 (BEAKER) (test code = 752) RED CELL DISTRIBUTION WIDTH 13.8 % 11.6-14.4 (BEAKER) (test code = 412) PLATELET COUNT (BEAKER) (test 263 K/CU MM 150-450 code = 756) MEAN PLATELET VOLUME (BEAKER) 9.4 fL 9.4-12.4 (test code = 754) NUCLEATED RED BLOOD CELLS 0 /100 WBC 0-0 (BEAKER) (test code = 413) POCT-GLUCOSE [id number] 22:25:00 Test Item Value Reference Range Interpretation Comments POC-GLUCOSE METER 116 mg/dL 70-110 H : TESTED A T [facility] (BEAKER) (test code = [facility], 1538) [address]: Site Controller/Techni kimberlee ID = [id number] for STEPHANIE PARRY POCT-GLUCOSE [id number] 14:58:00 Test Item Value Reference Range Interpretation Comments POC-GLUCOSE METER 95 mg/dL 70-110 : TESTED A T [facility] (BEAKER) (test code = [facility], 1538) 77656: Site Controller/Techni kimberlee ID = [id number] for AILIN BLUM POCT-GLUCOSE [id number] 11:08:00 Test Item Value Reference Range Interpretation Comments POC-GLUCOSE METER 105 mg/dL 70-110 : TESTED A T [facility] [address] (BEAKER) (test code = [facility], 1538) 64[address]: Site Controller/Techni kimberlee ID = [id number] for AILIN FARAH POCT-GLUCOSE [id number] 07:06:00 Test Item Value Reference Range Interpretation Comments POC-GLUCOSE METER 97 mg/dL 70-110 : TESTED A T [facility] [address] (BEAKER) (test code = [facility], 1538) [address]: Site Controller/Techni kimberlee ID = [id number] for AILIN BLUM BASIC METABOLIC [id number] 04:45:00 Test Item Value Reference Range Interpretation Comments SODIUM (BEAKER) (test 133 meq/L 136-145 L code = 381) POTASSIUM (BEAKER) 3.8 meq/L 3.5-5.1 (test code = 379) CHLORIDE (BEAKER) 100 meq/L 98-107 (test code = 382) CO2 (BEAKER) (test 26 meq/L 22-29 code = 355) BLOOD UREA NITROGEN 6 mg/dL 7-21 L (BEAKER) (test code = 354) CREATININE (BEAKER) 0.59 mg/dL 0.57-1.25 (test code = 358) GLUCOSE RANDOM 93 mg/dL 70-105 (BEAKER) (test code = 652) CALCIUM (BEAKER) 7.6 mg/dL 8.4-10.2 L (test code = 697) EGFR (BEAKER) (test INSUFFIC IENT CLINICAL code = 1092) DATA TO CALCULA TE ESTIMATED GFR. Site Controller ID - CARLOS ALBERTO [id number] 04:32:00 Test Item Value Reference Range Interpretation Comments PHOSPHORUS (BEAKER) (test code = 3.8 mg/dL 2.3-4.7 604) Site Controller ID - CARLOS ALBERTO [id number] 04:32:00 Test Item Value Reference Range Interpretation Comments MAGNESIUM (BEAKER) (test code = 1.7 mg/dL 1.6-2.6 627) Site Controller ID - CARLOS ALBERTO LCBC (HEMOGRAM ONLY)2019-10-06 03:57:00 Test Item Value Reference Range Interpretation Comments WHITE BLOOD CELL COUNT (BEAKER) 7.4 K/ L 3.5-10.5 (test code = 775) RED BLOOD CELL COUNT (BEAKER) 2.99 M/ L 4.63-6.08 L (test code = 761) HEMOGLOBIN (BEAKER) (test code = 8.3 GM/DL 13.7-17.5 L 410) HEMATOCRIT (BEAKER) (test code = 25.0 % 40.1-51.0 L 411) MEAN CORPUSCULAR VOLUME (BEAKER) 83.6 fL 79.0-92.2 (test code = 753) MEAN CORPUSCULAR HEMOGLOBIN 27.8 pg 25.7-32.2 (BEAKER) (test code = 751) MEAN CORPUSCULAR HEMOGLOBIN CONC 33.2 GM/DL 32.3-36.5 (BEAKER) (test code = 752) RED CELL DISTRIBUTION WIDTH 13.7 % 11.6-14.4 (BEAKER) (test code = 412) PLATELET COUNT (BEAKER) (test 246 K/CU MM 150-450 code = 756) MEAN PLATELET VOLUME (BEAKER) 9.4 fL 9.4-12.4 (test code = 754) NUCLEATED RED BLOOD CELLS 0 /100 WBC 0-0 (BEAKER) (test code = 413) POCT-GLUCOSE [id number] 21:44:00 Test Item Value Reference Range Interpretation Comments POC-GLUCOSE METER 104 mg/dL 70-110 : TESTED A T [facility] 6720 (BEAKER) (test code = [facility], 1538) 479[address]: Site Controller/Techni kimberlee ID = [id number] for CA LUCIUS PRUITT POCT-GLUCOSE [id number] 15:21:00 Test Item Value Reference Range Interpretation Comments POC-GLUCOSE METER 120 mg/dL 70-110 H : TESTED A T [facility] 6720 (BEAKER) (test code = [facility], 1538) 94790: Site Controller/Techni kimberlee ID = [id number] for Me liane, Kimmy POCT-GLUCOSE [id number] 11:29:00 Test Item Value Reference Range Interpretation Comments POC-GLUCOSE METER 92 mg/dL 70-110 : TESTED A T [facility] 6720 (BEAKER) (test code = [facility], [facility]8) 41141: Site Controller/Techni kimberlee ID = [id number] for Mend ezMaineKimmy POCT-GLUCOSE [id number] 07:38:00 Test Item Value Reference Range Interpretation Comments POC-GLUCOSE METER 107 mg/dL 70-110 : TESTED A T [facility] 6720 (BEAKER) (test code = [facility], [facility]8) 46103: Site Controller/Techni kimberlee ID = [id number] for Me ndez, Kimmy BASIC METABOLIC [id number] 04:35:00 Test Item Value Reference Range Interpretation Comments SODIUM (BEAKER) (test 132 meq/L 136-145 L code = 381) POTASSIUM (BEAKER) 3.9 meq/L 3.5-5.1 (test code = 379) CHLORIDE (BEAKER) 101 meq/L 98-107 (test code = 382) CO2 (BEAKER) (test 25 meq/L 22-29 code = 355) BLOOD UREA NITROGEN 5 mg/dL 7-21 L (BEAKER) (test code = 354) CREATININE (BEAKER) 0.57 mg/dL 0.57-1.25 (test code = 358) GLUCOSE RANDOM 101 mg/dL 70-105 (BEAKER) (test code = 652) CALCIUM (BEAKER) 7.5 mg/dL 8.4-10.2 L (test code = 697) EGFR (BEAKER) (test INSUFFIC IENT CLINICAL code = 1092) DATA TO CALCULA TE ESTIMATED GFR. Site Controller ID Sven CARCAMO [id number] 04:25:00 Test Item Value Reference Range Interpretation Comments PHOSPHORUS (BEAKER) (test code = 1.7 mg/dL 2.3-4.7 L 604) Site Controller ID Sven CARCAMO [id number] 04:25:00 Test Item Value Reference Range Interpretation Comments MAGNESIUM (BEAKER) (test code = 1.9 mg/dL 1.6-2.6 627) Site Controller ID Sven CARCAMO LCBC (HEMOGRAM ONLY)2019-10-05 04:12:00 Test Item Value Reference Range Interpretation Comments WHITE BLOOD CELL COUNT (BEAKER) 7.8 K/ L 3.5-10.5 (test code = 775) RED BLOOD CELL COUNT (BEAKER) 2.90 M/ L 4.63-6.08 L (test code = 761) HEMOGLOBIN (BEAKER) (test code = 8.3 GM/DL 13.7-17.5 L 410) HEMATOCRIT (BEAKER) (test code = 24.5 % 40.1-51.0 L 411) MEAN CORPUSCULAR VOLUME (BEAKER) 84.5 fL 79.0-92.2 (test code = 753) MEAN CORPUSCULAR HEMOGLOBIN 28.6 pg 25.7-32.2 (BEAKER) (test code = 751) MEAN CORPUSCULAR HEMOGLOBIN CONC 33.9 GM/DL 32.3-36.5 (BEAKER) (test code = 752) RED CELL DISTRIBUTION WIDTH 13.6 % 11.6-14.4 (BEAKER) (test code = 412) PLATELET COUNT (BEAKER) (test 224 K/CU MM 150-450 code = 756) MEAN PLATELET VOLUME (BEAKER) 9.4 fL 9.4-12.4 (test code = 754) NUCLEATED RED BLOOD CELLS 0 /100 WBC 0-0 (BEAKER) (test code = 413) POCT-GLUCOSE [id number] 21:34:00 Test Item Value Reference Range Interpretation Comments POC-GLUCOSE METER 106 mg/dL 70-110 : TESTED A T [facility] 6720 (BEAKER) (test code = [facility], 1538) 11515: Site Controller/Techni kimberlee ID = [id number] for STEPHANIE PARRY POCT-GLUCOSE [id number] 15:32:00 Test Item Value Reference Range Interpretation Comments POC-GLUCOSE METER 120 mg/dL 70-110 H : TESTED A T [facility] 6720 (BEAKER) (test code = [facility], 1538) 57571: Site Controller/Techni kimberlee ID = [id number] for Kimmy Weaver Surgically obtained culture + gram [id number] 13:43:00 Test Item Value Reference Range Interpretation Comments Result (test code = 6463-4) No growth Gram Stain Result (test No organisms seen code = 1123) [facility]AM [id number] 13:43:00 Test Item Value Reference Range Interpretation Comments CULTURE (BEAKER) (test code No growth = 1095) GRAM STAIN RESULT (BEAKER) No WBCs (test code = 1123) GRAM STAIN RESULT (BEAKER) No organisms seen (test code = 28732) POCT-GLUCOSE [id number] 11:49:00 Test Item Value Reference Range Interpretation Comments POC-GLUCOSE METER 119 mg/dL 70-110 H : TESTED A T [facility] 6720 (BEAKER) (test code = [facility], 153) 31462: Site Controller/Techni kimberlee ID = [id number] for Kimmy Weaver Anaerobic [id number] 09:09:00 Test Item Value Reference Range Interpretation Comments Result (test code = No anaerobes isolated 6463-4) [facility] [id number] 09:09:00 Test Item Value Reference Range Interpretation Comments CULTURE (BEAKER) (test No anaerobes isolated code = 1095) POCT-GLUCOSE [id number] 07:44:00 Test Item Value Reference Range Interpretation Comments POC-GLUCOSE METER 113 mg/dL 70-110 H : TESTED A T [facility] 6720 (BEAKER) (test code = [facility], 1538) 63515: Site Controller/Techni kimberlee ID = [id number] for Me Kimmy rob [id number] 06:27:00 Test Item Value Reference Range Interpretation Comments PHOSPHORUS (BEAKER) (test code = 1.4 mg/dL 2.3-4.7 LL 604) Site Controller VIRGEN CARCAMO [id number] 06:02:00 Test Item Value Reference Range Interpretation Comments MAGNESIUM (BEAKER) (test code = 1.6 mg/dL 1.6-2.6 627) Site Controller ID - CARLOS ALBERTO LBASIC METABOLIC [id number] 06:02:00 Test Item Value Reference Range Interpretation Comments SODIUM (BEAKER) (test 133 meq/L 136-145 L code = 381) POTASSIUM (BEAKER) 4.0 meq/L 3.5-5.1 (test code = 379) CHLORIDE (BEAKER) 102 meq/L 98-107 (test code = 382) CO2 (BEAKER) (test 23 meq/L 22-29 code = 355) BLOOD UREA NITROGEN 5 mg/dL 7-21 L (BEAKER) (test code = 354) CREATININE (BEAKER) 0.64 mg/dL 0.57-1.25 (test code = 358) GLUCOSE RANDOM 105 mg/dL 70-105 (BEAKER) (test code = 652) CALCIUM (BEAKER) 7.8 mg/dL 8.4-10.2 L (test code = 697) EGFR (BEAKER) (test INSUFFIC IENT CLINICAL code = 1092) DATA TO CALCULA TE ESTIMATED GFR. Site Controller ID Sven CARCAMO LCBC (HEMOGRAM ONLY)2019-10-04 05:00:00 Test Item Value Reference Range Interpretation Comments WHITE BLOOD CELL COUNT (BEAKER) 11.6 K/ L 3.5-10.5 H (test code = 775) RED BLOOD CELL COUNT (BEAKER) 3.01 M/ L 4.63-6.08 L (test code = 761) HEMOGLOBIN (BEAKER) (test code = 8.5 GM/DL 13.7-17.5 L 410) HEMATOCRIT (BEAKER) (test code = 25.6 % 40.1-51.0 L 411) MEAN CORPUSCULAR VOLUME (BEAKER) 85.0 fL 79.0-92.2 (test code = 753) MEAN CORPUSCULAR HEMOGLOBIN 28.2 pg 25.7-32.2 (BEAKER) (test code = 751) MEAN CORPUSCULAR HEMOGLOBIN CONC 33.2 GM/DL 32.3-36.5 (BEAKER) (test code = 752) RED CELL DISTRIBUTION WIDTH 13.8 % 11.6-14.4 (BEAKER) (test code = 412) PLATELET COUNT (BEAKER) (test 212 K/CU MM 150-450 code = 756) MEAN PLATELET VOLUME (BEAKER) 9.7 fL 9.4-12.4 (test code = 754) NUCLEATED RED BLOOD CELLS 0 /100 WBC 0-0 (BEAKER) (test code = 413) POCT-GLUCOSE [id number] 21:17:00 Test Item Value Reference Range Interpretation Comments POC-GLUCOSE METER 115 mg/dL 70-110 H : TESTED A T [facility] 6720 (BEAKER) (test code = [facility], 1538) 79113: Site Controller/Techni kimberlee ID = [id number] for PAVAN PRINGLE POCT-GLUCOSE [id number] 16:16:00 Test Item Value Reference Range Interpretation Comments POC-GLUCOSE METER 108 mg/dL 70-110 : TESTED A T [facility] 6720 (BEAKER) (test code = [facility], 1538) 49071: Site Controller/Techni kimberlee ID = [id number] for YONI DOHERTY POCT-GLUCOSE [id number] 12:33:00 Test Item Value Reference Range Interpretation Comments POC-GLUCOSE METER 102 mg/dL 70-110 : TESTED A T [facility] 6720 ([facility]) (test code = [facility], 1538) 87046: Site Controller/Techni kimberlee ID = [id number] for YONI DOHERTY RAD, ABDOMEN/KUB, 1 VIEW [id number] 09:32:00Reason for exam:->abd distentionFINAL REPORT RAD, ABDOMEN/KUB, 1 VIEW AP TECHNIQUE: Supine radiograph of the abdomen and pelvis. HISTORY: abd distention COMPARISON: CT abdomen and pelvis 09/26/2019 IMPRESSION: A single moderately dilated and gas-filled small bowel loop projects over the upper mid abdomen, focal small bowel obstruction not excluded. No pneumoperitoneum given limitations of supine technique. Asurgical drain projects over the right-sided abdomen, tip projects over the epigastrium No significant stool burden in the colon. No acute osseous abnormality. Signed: Tito Pinto Verified Date/ Time: 10/03/2019 09:32:02 Reading Location: [facility] Diagnostic Imaging Reading Room - [place] [address] XR abdomen / KUB 1 [id number] 09:32:00Interface, External Ris In - 10/03/2019 9:34 AM CDTFINAL REPORT RAD, ABDOMEN/KUB, 1 VIEW AP TECHNIQUE: Supine radiograph of the abdomen and pelvis. HISTORY: abd distention COMPARISON: CT abdomen and pelvis 09/26/2019 IMPRESSION: A single moderately dilated and gas-filled small bowel loop projects over the upper mid abdomen, focal small bowel obstruction not excluded. No pneumo peritoneum given limitations of supine technique. A surgical drain projects over the right-sided abdomen, tip projects over the epigastrium No significant stool burden in the colon. No acute osseous abnormality. Signed: Tito Pinto Verified Date/Time: 10/03/2019 09:32:02 Reading Location: [facility] Diagnostic Imaging Reading Room - [place] [address] Electronically signed by: TITO PINTO MDon 10/03/2019 09:32 [facility] 2019[facility]10[facility]03 07:33:00 Test Item Value Reference Range Interpretation Comments POC-GLUCOSE METER 118 mg/dL 70-110 H : TESTED A T [facility] 6720 (BEAKER) (test code = [facility], 1538) 55616: Site Controller/Techni kimberlee ID = [id number] for YONI DOHERTY BASIC METABOLIC [id number] 04:55:00 Test Item Value Reference Range Interpretation Comments SODIUM (BEAKER) (test 136 meq/L 136-145 code = 381) POTASSIUM (BEAKER) 4.0 meq/L 3.5-5.1 (test code = 379) CHLORIDE (BEAKER) 103 meq/L 98-107 (test code = 382) CO2 (BEAKER) (test 26 meq/L 22-29 code = 355) BLOOD UREA NITROGEN 6 mg/dL 7-21 L (BEAKER) (test code = 354) CREATININE (BEAKER) 0.70 mg/dL 0.57-1.25 (test code = 358) GLUCOSE RANDOM 113 mg/dL 70-105 H (BEAKER) (test code = 652) CALCIUM (BEAKER) 8.2 mg/dL 8.4-10.2 L (test code = 697) EGFR (BEAKER) (test INSUFFIC IENT CLINICAL code = 1092) DATA TO CALCULA TE ESTIMATED GFR. Site Controller ID - [id number] 04:53:00 Test Item Value Reference Range Interpretation Comments PHOSPHORUS (BEAKER) (test code = 2.4 mg/dL 2.3-4.7 604) Site Controller ID - [id number] 04:53:00 Test Item Value Reference Range Interpretation Comments MAGNESIUM (BEAKER) (test code = 1.7 mg/dL 1.6-2.6 627) Site Controller ID - EDASICBC (HEMOGRAM ONLY)2019-10-03 04:21:00 Test Item Value Reference Range Interpretation Comments WHITE BLOOD CELL COUNT (BEAKER) 10.7 K/ L 3.5-10.5 H (test code = 775) RED BLOOD CELL COUNT (BEAKER) 3.27 M/ L 4.63-6.08 L (test code = 761) HEMOGLOBIN (BEAKER) (test code = 9.4 GM/DL 13.7-17.5 L 410) HEMATOCRIT (BEAKER) (test code = 28.3 % 40.1-51.0 L 411) MEAN CORPUSCULAR VOLUME (BEAKER) 86.5 fL 79.0-92.2 (test code = 753) MEAN CORPUSCULAR HEMOGLOBIN 28.7 pg 25.7-32.2 (BEAKER) (test code = 751) MEAN CORPUSCULAR HEMOGLOBIN CONC 33.2 GM/DL 32.3-36.5 (BEAKER) (test code = 752) RED CELL DISTRIBUTION WIDTH 14.1 % 11.6-14.4 (BEAKER) (test code = 412) PLATELET COUNT (BEAKER) (test 234 K/CU MM 150-450 code = 756) MEAN PLATELET VOLUME (BEAKER) 9.5 fL 9.4-12.4 (test code = 754) NUCLEATED RED BLOOD CELLS 0 /100 WBC 0-0 (BEAKER) (test code = 413) POCT-GLUCOSE [id number] 20:53:00 Test Item Value Reference Range Interpretation Comments POC-GLUCOSE METER 115 mg/dL 70-110 H : TESTED A T [facility] 6720 (BEAKER) (test code = [facility], 1538) 86329: Site Controller/Techni kimberlee ID = [id number] for BETH VELARDE POCT-GLUCOSE [id number] 16:08:00 Test Item Value Reference Range Interpretation Comments POC-GLUCOSE METER 108 mg/dL 70-110 : TESTED A T [facility] 6720 (BEAKER) (test code = [facility], 1538) 33305: Site Controller/Techni kimberlee ID = [id number] for AILIN FARAH BASIC METABOLIC [id number] 05:04:00 Test Item Value Reference Range Interpretation Comments SODIUM (BEAKER) (test 135 meq/L 136-145 L code = 381) POTASSIUM (BEAKER) 4.2 meq/L 3.5-5.1 (test code = 379) CHLORIDE (BEAKER) 106 meq/L 98-107 (test code = 382) CO2 (BEAKER) (test 22 meq/L 22-29 code = 355) BLOOD UREA NITROGEN 6 mg/dL 7-21 L (BEAKER) (test code = 354) CREATININE (BEAKER) 0.72 mg/dL 0.57-1.25 (test code = 358) GLUCOSE RANDOM 113 mg/dL 70-105 H (BEAKER) (test code = 652) CALCIUM (BEAKER) 8.1 mg/dL 8.4-10.2 L (test code = 697) EGFR (BEAKER) (test INSUFFIC IENT CLINICAL code = 1092) DATA TO CALCULA TE ESTIMATED GFR. Site Controller ID - NTPHepatic function [id number] 04:53:00 Test Item Value Reference Range Interpretation Comments Protein, Total (test code = 5.4 6.0- 8.3 gm/dL L 2885-2) Albumin (test code = 2.9 g/dL 3.5-5 L 42768-5) Total Bilirubin (test code 0.6 mg/dL 0.2-1.2 = 1975-2) Bilirubin, Direct (test 0.3 mg/dL 0.1-0.5 code = 1968-7) Alkaline Phosphatase (test 118 U/L 40-150 code = 6768-6) AST (test code = 1920-8) 153 U/L 5-34 H ALT (test code = 1742-6) 152 U/L 6-55 H RAFAEL (test code = RAFAEL) Site Controller ID - NTP Lab Interpretation (test Abnormal code = 24073-8) [facility] 04:53:00 Test Item Value Reference Range Interpretation Comments PHOSPHORUS (BEAKER) (test code = 3.6 mg/dL 2.3-4.7 604) Site Controller ID - [id number] 04:53:00 Test Item Value Reference Range Interpretation Comments MAGNESIUM (BEAKER) (test code = 1.2 mg/dL 1.6-2.6 L 627) Site Controller ID - NTPHEPATIC FUNCTION [id number] 04:53:00 Test Item Value Reference Range Interpretation Comments TOTAL PROTEIN (BEAKER) (test code = 5.4 gm/dL 6.0-8.3 L 770) ALBUMIN (BEAKER) (test code = 1145) 2.9 g/dL 3.5-5.0 L BILIRUBIN TOTAL (BEAKER) (test code 0.6 mg/dL 0.2-1.2 = 377) BILIRUBIN DIRECT (BEAKER) (test 0.3 mg/dL 0.1-0.5 code = 706) ALKALINE PHOSPHATASE (BEAKER) (test 118 U/L 40-150 code = 346) AST (SGOT) (BEAKER) (test code = 153 U/L 5-34 H 353) ALT (SGPT) (BEAKER) (test code = 152 U/L 6-55 H 347) Site Controller ID - NTPCBC (HEMOGRAM ONLY)2019-10-02 04:23:00 Test Item Value Reference Range Interpretation Comments WHITE BLOOD CELL COUNT (BEAKER) 11.8 K/ L 3.5-10.5 H (test code = 775) RED BLOOD CELL COUNT (BEAKER) 3.50 M/ L 4.63-6.08 L (test code = 761) HEMOGLOBIN (BEAKER) (test code = 10.1 GM/DL 13.7-17.5 L 410) HEMATOCRIT (BEAKER) (test code = 30.3 % 40.1-51.0 L 411) MEAN CORPUSCULAR VOLUME (BEAKER) 86.6 fL 79.0-92.2 (test code = 753) MEAN CORPUSCULAR HEMOGLOBIN 28.9 pg 25.7-32.2 (BEAKER) (test code = 751) MEAN CORPUSCULAR HEMOGLOBIN CONC 33.3 GM/DL 32.3-36.5 (BEAKER) (test code = 752) RED CELL DISTRIBUTION WIDTH 14.0 % 11.6-14.4 (BEAKER) (test code = 412) PLATELET COUNT (BEAKER) (test 277 K/CU MM 150-450 code = 756) MEAN PLATELET VOLUME (BEAKER) 9.8 fL 9.4-12.4 (test code = 754) NUCLEATED RED BLOOD CELLS 0 /100 WBC 0-0 (BEAKER) (test code = 413) POCT-GLUCOSE [id number] 22:41:00 Test Item Value Reference Range Interpretation Comments POC-GLUCOSE METER 128 mg/dL 70-110 H : TESTED A T [facility] 6720 (BEAKER) (test code = [facility], 1538) 98733: Site Controller/Techni kimberlee ID = [id number] for MGAO MERRILL Manual [id number] 12:47:00 Test Item Value Reference Range Interpretation Comments % Neutros (test code = 75 % 2816) % Lymphs (test code = 18 % 2817) % Monos (test code = 4 % 2818) % Myelo (test code = 1 % 0-0 H 2822) % Atypical Lymphs (test 2 % 0-0 H code = 2829) # Neutros (test code = 4.80 K/ul 1.78-5.38 2830) # Lymphs (test code = 1.15 K/ul 1.32-3.57 L 2831) # Monos (test code = 0.26 K/uL 0.3-0.82 L 2832) # Myelo (test code = 0.06 K/uL 0-0 H 2837) # Atypical Lymphs (test 0.13 K/uL 0-0 H code = 2858) Total Counted (test 100 code = 1351) WBC Morphology (test Normal code = 487) Large Platelet (test Present code = 2156) Hypochromia (test code 1+ few = 963) Anisocytosis (test code 1+ few = 961) Microcytes (test code = 1+ few 965) Poikilocytes (test code 3+ many = 966) Target Cells (test code 1+ few = 480) Elliptocytes (test code 1+ few = 962) Ovalocytes (test code = 2+ moderate 477) Tear Drop Cells (test 1+ few code = 481) Stephan Cells (test code = 2+ moderate 474) Artifact (test code = Present 3432) Platelet Conc (test Adequate code = 3438) RAFAEL (test code = RAFAEL) Site Controller ID - Chanda Carlos A comments: Slide comments: WBC: SEGMENTED WITH TOXIC GRANULATIONS PRESENT Lab Interpretation Abnormal (test code = 14674-5) [facility](CELLAVISION MANUAL DIFF)2019-10-01 12:47:00 Test Item Value Reference Range Interpretation Comments NEUTROPHILS - REL 75 % (CELLAVISION)(BEAKER) (test code = 2816) LYMPHOCYTES - REL 18 % (CELLAVISION)(BEAKER) (test code = 2817) MONOCYTES - REL 4 % (CELLAVISION)(BEAKER) (test code = 2818) MYELOCYTES - REL 1 % 0-0 H (CELLAVISION)(BEAKER) (test code = 2822) ATYPICAL LYMPHOCYTES - REL 2 % 0-0 H (CELLAVISION)(BEAKER) (test code = 2829) NEUTROPHILS - ABS 4.80 K/ul 1.78-5.38 (CELLAVISION)(BEAKER) (test code = 2830) LYMPHOCYTES - ABS 1.15 K/ul 1.32-3.57 L (CELLAVISION)(BEAKER) (test code = 2831) MONOCYTES - ABS 0.26 K/uL 0.30-0.82 L (CELLAVISION)(BEAKER) (test code = 2832) MYELOCYTES-ABS 0.06 K/uL 0.00-0.00 H (CELLAVISION)(BEAKER) (test code = 2837) ATYPICAL LYMPHOCYTES - ABS 0.13 K/uL 0.00-0.00 H (CELLAVISION)(BEAKER) (test code = 2858) TOTAL COUNTED (BEAKER) (test code 100 = 1351) WBC MORPHOLOGY (BEAKER) (test Normal code = 487) LARGE PLT(BEAKER) (test code = Present 2156) HYPOCHROMIA (BEAKER) (test code = 1+ few 963) ANISOCYTOSIS (BEAKER) (test code 1+ few = 961) MICROCYTES (BEAKER) (test code = 1+ few 965) POIKILOCYTES (BEAKER) (test code 3+ many = 966) TARGET CELLS (BEAKER) (test code 1+ few = 480) ELLIPTOCYTES (BEAKER) (test code 1+ few = 962) OVALOCYTES (BEAKER) (test code = 2+ moderate 477) TEAR DROP CELLS (BEAKER) (test 1+ few code = 481) ИВАН CELLS (BEAKER) (test code = 2+ moderate 474) ARTIFACT (CELLAVISION)(BEAKER) Present (test code = 3432) PLATELET CONCENTRATION Adequate (CELLAVISION)(BEAKER) (test code = 3438) Site Controller ID - Chanda Carlos A comments: Slide comments: WBC: SEGMENTED WITH TOXIC GRANULATIONS PRESENTCalcium, [id number] 10:15:00 Test Item Value Reference Range Interpretation Comments Calcium, Ion (test code = 1993-) 1.03 mmol/L 1.12-1.27 L pH, Blood (test code = 24592-7) 7.43 Lab Interpretation (test code = Abnormal 41308-8) [facility], [id number] 10:15:00 Test Item Value Reference Range Interpretation Comments CALCIUM IONIZED (BEAKER) (test 1.03 mmol/L 1.12-1.27 L code = 698) PH, BLOOD (BEAKER) (test code = 7.43 1810) Blood gas, [id number] 10:14:00 Test Item Value Reference Range Interpretation Comments pH, Arterial (test code = 2744-1) 7.45 7.35-7.45 pCO2, Arterial (test code = 35 35- 45 mmHg 2018-8) pO2, Arterial (test code = 228 80- 90 mmHg H 2703-7) O2 Sat, Arterial (test code = 99.5 % 96-97 H 2708-6) HCO3, Arterial (test code = 24 mmol/L 21-29 1960-4) Base Excess, Arterial (test code -0.5 mmol/L -2-3 = 1925-7) Patient Temperature (test code = 35.8 C 8310-5) FIO2 (test code = 1819) 50 % Lab Interpretation (test code = Abnormal 51985-8) [facility] [id number] 10:14:00 Test Item Value Reference Range Interpretation Comments Hemoglobin (test code = 786-4) 10.7 g/dL 13-16.8 L Hematocrit (test code = 4544-3) 31.0 % 40-50 L Lab Interpretation (test code = Abnormal 22466-3) [facility] [id number] 10:14:00 Test Item Value Reference Range Interpretation Comments Glucose (test code = 2345-7) 166 mg/dL 70-110 H Lab Interpretation (test code = Abnormal 57378-8) [facility], [id number] 10:14:00 Test Item Value Reference Range Interpretation Comments PH ARTERIAL (BEAKER) (test code = 7.45 7.35-7.45 383) PCO2 ARTERIAL (BEAKER) (test code 35 mmHg 35-45 = 384) PO2 ARTERIAL (BEAKER) (test code 228 mmHg 80-90 H = 385) O2 SATURATION ARTERIAL (BEAKER) 99.5 % 96.0-97.0 H (test code = 386) HCO3 ARTERIAL (BEAKER) (test code 24 mmol/L 21-29 = 388) BASE EXCESS ARTERIAL (BEAKER) -0.5 mmol/L -2.0-3.0 (test code = 387) PATIENT TEMPERATURE (BEAKER) 35.8 C (test code = 1818) FIO2 (BEAKER) (test code = 1819) 50.0 % GLUCOSE-STAT [id number] 10:14:00 Test Item Value Reference Range Interpretation Comments GLUCOSE RANDOM (BEAKER) (test code 166 mg/dL 70-110 H = 652) HGB/HCT (H&H) - STAT [id number] 10:14:00 Test Item Value Reference Range Interpretation Comments HEMOGLOBIN (BEAKER) (test code = 10.7 g/dL 13.0-16.8 L 410) HEMATOCRIT (BEAKER) (test code = 31.0 % 40.0-50.0 L 411) pH, [id number] 10:12:00 Test Item Value Reference Range Interpretation Comments pH, Arterial (test code = 2744-1) 7.45 7.35-7.45 Lab Interpretation (test code = Normal 04172-9) [facility]PH, [id number] 10:12:00 Test Item Value Reference Range Interpretation Comments PH ARTERIAL (BEAKER) (test code = 383) 7.45 7.35-7.45 ANESTHESIA SPINAL [id number] 08:38:58Nir Mcduffie MD - 10/01/2019 8:38 AM CDTSpinal BlockPatient location during procedure: ORStart time: 10/01/2019 7:35 AMEnd time: 10/01/2019 7:39 AM Procedure Indication: procedure for pain, at surgeon's request and post-op pain managementStaffingAnesthesiologist: Nir Mcduffie MDPreanesthetic ChecklistCompleted: patient identified, pre-op evaluation, timeout performed, IV checked,risks and benefits discussed, monitors and equipment checked, anesthesia consent given, prep site dry prior to draping and maximum sterile barriers were used: cap, mask, sterile gown, sterile gloves, and large sterile sheetPrepPrep: BetadineProcedures: sterile gloves, surgical mask, surgical hat, sterile technique and prep and sterile drape appliedSpinal BlockPatient position: sittingPatient monitoring: EKG, HR, BP and XqK0Eegqlcjt: midlineNo pictures availableLevel: L3-4Injection technique: single-shotlandmark technique and landmark techniqueNeedleNeedle type: pencil-tip (alex) Needle gauge: 25 GNeedle Length: 9 cmUsed introducerAssessmentSensory level: I58Qfgbfe: cerebrospinal fluidpatient tolerated the procedure well and patient had no immediate complicationsT[facility] HospitalPrepare [id number] 07:40:00 Test Item Value Reference Range Interpretation Comments CROSSMATCH (test code = 2264) COMPATIBLE Unit ABO (test code = O Pos 1321902) UNIT NUMBER (test code = L651202830197 934-0) Status (test code = 1139022) READY Blood Bank Product (test code RED BLOOD CELLS = 2263) PRODUCT CODE (test code = D8732R74 933-2) [facility] METABOLIC [id number] 06:17:00 Test Item Value Reference Range Interpretation Comments SODIUM (BEAKER) (test 136 meq/L 136-145 code = 381) POTASSIUM (BEAKER) 3.7 meq/L 3.5-5.1 (test code = 379) CHLORIDE (BEAKER) 107 meq/L 98-107 (test code = 382) CO2 (BEAKER) (test 22 meq/L 22-29 code = 355) BLOOD UREA NITROGEN 3 mg/dL 7-21 L (BEAKER) (test code = 354) CREATININE (BEAKER) 0.67 mg/dL 0.57-1.25 (test code = 358) GLUCOSE RANDOM 94 mg/dL 70-105 (BEAKER) (test code = 652) CALCIUM (BEAKER) 8.2 mg/dL 8.4-10.2 L (test code = 697) EGFR (BEAKER) (test INSUFFIC IENT CLINICAL code = 1092) DATA TO CALCULA TE ESTIMATED GFR. Site Controller ID - [id number] 06:12:00 Test Item Value Reference Range Interpretation Comments PHOSPHORUS (BEAKER) (test code = 2.9 mg/dL 2.3-4.7 604) Site Controller ID - [id number] 06:12:00 Test Item Value Reference Range Interpretation Comments MAGNESIUM (BEAKER) (test code = 1.2 mg/dL 1.6-2.6 L 627) Site Controller ID - EDASIHEPATIC FUNCTION [id number] 06:12:00 Test Item Value Reference Range Interpretation Comments TOTAL PROTEIN (BEAKER) (test code = 5.2 gm/dL 6.0-8.3 L 770) ALBUMIN (BEAKER) (test code = 1145) 2.6 g/dL 3.5-5.0 L BILIRUBIN TOTAL (BEAKER) (test code 0.5 mg/dL 0.2-1.2 = 377) BILIRUBIN DIRECT (BEAKER) (test 0.3 mg/dL 0.1-0.5 code = 706) ALKALINE PHOSPHATASE (BEAKER) (test 93 U/L 40-150 code = 346) AST (SGOT) (BEAKER) (test code = 22 U/L 5-34 353) ALT (SGPT) (BEAKER) (test code = 10 U/L 6-55 347) Site Controller ID - EDASIType and screen, [id number] 05:53:00 Test Item Value Reference Range Interpretation Comments ABO/RH AUTOMATED (BEAKER) (test O POSITIVE code = 2260) Ab Scrn (test code = 890-4) NEGATIVE [facility] with platelet count + manual [id number] 05:19:00 Test Item Value Reference Range Interpretation Comments WBC (test code = 6690-2) 6.4 3.5- 10.5 K/L RBC (test code = 789-8) 3.34 4.63- 6.08 M/L L MCHC (test code = 786-4) 33.0 32.3- 36.5 GM/DL L Hematocrit (test code = 4544-3) 28.2 % 40.1-51 L MCV (test code = 787-2) 84.4 fL 79-92.2 MCH (test code = 785-6) 27.8 pg 25.7-32.2 RDW (test code = 788-0) 13.5 % 11.6-14.4 Platelets (test code = 777-3) 271 150- 450 K/CU MM MPV (test code = 76519-4) 9.5 fL 9.4-12.4 nRBC (test code = 413) 0 0- 0 /100 WBC Lab Interpretation (test code = Abnormal 13261-8) [facility] WITH PLATELET COUNT + MANUAL [id number] 05:19:00 Test Item Value Reference Range Interpretation Comments WHITE BLOOD CELL COUNT (BEAKER) 6.4 K/ L 3.5-10.5 (test code = 775) RED BLOOD CELL COUNT (BEAKER) 3.34 M/ L 4.63-6.08 L (test code = 761) HEMOGLOBIN (BEAKER) (test code = 9.3 GM/DL 13.7-17.5 L 410) HEMATOCRIT (BEAKER) (test code = 28.2 % 40.1-51.0 L 411) MEAN CORPUSCULAR VOLUME (BEAKER) 84.4 fL 79.0-92.2 (test code = 753) MEAN CORPUSCULAR HEMOGLOBIN 27.8 pg 25.7-32.2 (BEAKER) (test code = 751) MEAN CORPUSCULAR HEMOGLOBIN CONC 33.0 GM/DL 32.3-36.5 (BEAKER) (test code = 752) RED CELL DISTRIBUTION WIDTH 13.5 % 11.6-14.4 (BEAKER) (test code = 412) PLATELET COUNT (BEAKER) (test 271 K/CU MM 150-450 code = 756) MEAN PLATELET VOLUME (BEAKER) 9.5 fL 9.4-12.4 (test code = 754) NUCLEATED RED BLOOD CELLS 0 /100 WBC 0-0 (BEAKER) (test code = 413) BASIC METABOLIC [id number] 18:24:00 Test Item Value Reference Range Interpretation Comments SODIUM (BEAKER) (test 136 meq/L 136-145 code = 381) POTASSIUM (BEAKER) 3.7 meq/L 3.5-5.1 (test code = 379) CHLORIDE (BEAKER) 105 meq/L 98-107 (test code = 382) CO2 (BEAKER) (test 24 meq/L 22-29 code = 355) BLOOD UREA NITROGEN 3 mg/dL 7-21 L (BEAKER) (test code = 354) CREATININE (BEAKER) 0.69 mg/dL 0.57-1.25 (test code = 358) GLUCOSE RANDOM 118 mg/dL 70-105 H (BEAKER) (test code = 652) CALCIUM (BEAKER) 8.1 mg/dL 8.4-10.2 L (test code = 697) EGFR (BEAKER) (test INSUFFIC IENT CLINICAL code = 1092) DATA TO CALCULA TE ESTIMATED GFR. Site Controller ID - BSCBC with platelet count + automated [id number] 18:09:00 Test Item Value Reference Range Interpretation Comments WBC (test code = 6690-2) 10.5 3.5- 10.5 K/L RBC (test code = 789-8) 3.47 4.63- 6.08 M/L L MCHC (test code = 786-4) 33.4 32.3- 36.5 GM/DL L Hematocrit (test code = 4544-3) 29.6 % 40.1-51 L MCV (test code = 787-2) 85.3 fL 79-92.2 MCH (test code = 785-6) 28.5 pg 25.7-32.2 RDW (test code = 788-0) 13.6 % 11.6-14.4 Platelets (test code = 777-3) 261 150- 450 K/CU MM MPV (test code = 08285-2) 9.5 fL 9.4-12.4 nRBC (test code = 413) 0 0- 0 /100 WBC % Neutros (test code = 429) 79 % % Lymphs (test code = 430) 13 % % Monos (test code = 431) 7 % % Eos (test code = 432) 0 % % Baso (test code = 437) 0 % # Neutros (test code = 670) 8.27 1.78- 5.38 K/L H # Lymphs (test code = 414) 1.35 1.32- 3.57 K/L # Monos (test code = 415) 0.72 0.30- 0.82 K/L # Eos (test code = 416) 0.03 0.04- 0.54 K/L L # Baso (test code = 417) 0.02 0.01- 0.08 K/L Immature Granulocytes-Relative 1 % 0-1 (test code = 2801) Lab Interpretation (test code = Abnormal 21561-3) [facility] W/PLT COUNT & AUTO [id number] 18:09:00 Test Item Value Reference Range Interpretation Comments WHITE BLOOD CELL COUNT (BEAKER) 10.5 K/ L 3.5-10.5 (test code = 775) RED BLOOD CELL COUNT (BEAKER) 3.47 M/ L 4.63-6.08 L (test code = 761) HEMOGLOBIN (BEAKER) (test code = 9.9 GM/DL 13.7-17.5 L 410) HEMATOCRIT (BEAKER) (test code = 29.6 % 40.1-51.0 L 411) MEAN CORPUSCULAR VOLUME (BEAKER) 85.3 fL 79.0-92.2 (test code = 753) MEAN CORPUSCULAR HEMOGLOBIN 28.5 pg 25.7-32.2 (BEAKER) (test code = 751) MEAN CORPUSCULAR HEMOGLOBIN CONC 33.4 GM/DL 32.3-36.5 (BEAKER) (test code = 752) RED CELL DISTRIBUTION WIDTH 13.6 % 11.6-14.4 (BEAKER) (test code = 412) PLATELET COUNT (BEAKER) (test 261 K/CU MM 150-450 code = 756) MEAN PLATELET VOLUME (BEAKER) 9.5 fL 9.4-12.4 (test code = 754) NUCLEATED RED BLOOD CELLS 0 /100 WBC 0-0 (BEAKER) (test code = 413) NEUTROPHILS RELATIVE PERCENT 79 % (BEAKER) (test code = 429) LYMPHOCYTES RELATIVE PERCENT 13 % (BEAKER) (test code = 430) MONOCYTES RELATIVE PERCENT 7 % (BEAKER) (test code = 431) EOSINOPHILS RELATIVE PERCENT 0 % (BEAKER) (test code = 432) BASOPHILS RELATIVE PERCENT 0 % (BEAKER) (test code = 437) NEUTROPHILS ABSOLUTE COUNT 8.27 K/ L 1.78-5.38 H (BEAKER) (test code = 670) LYMPHOCYTES ABSOLUTE COUNT 1.35 K/ L 1.32-3.57 (BEAKER) (test code = 414) MONOCYTES ABSOLUTE COUNT (BEAKER) 0.72 K/ L 0.30-0.82 (test code = 415) EOSINOPHILS ABSOLUTE COUNT 0.03 K/ L 0.04-0.54 L (BEAKER) (test code = 416) BASOPHILS ABSOLUTE COUNT (BEAKER) 0.02 K/ L 0.01-0.08 (test code = 417) IMMATURE GRANULOCYTES-RELATIVE 1 % 0-1 PERCENT (BEAKER) (test code = 2801) SARS-COV2/RT-PCR ([facility] & REF LABS)2019-09-30 17:15:00 Test Item Value Reference Range Interpretation Comments SARS-COV2/RT-PCR (test Negative Not Detected, Negative, code = 2112939) See external report for linked test SARS-COV-2 PERFORMING LAB [facility] (test code = 1042237) Negative result for this test determines that SARS-CoV-2 RNA was not present in the specimen above the Limit of Detection (LOD). However, Negative results do not preclude SARS-CoV-2 infection and should not be used as the sole basis for treatment or patient management decisions. Negative results mustbe combined with clinical observations, patient history, and epidemiological information. A false negative result may occur if a specimen is improperly collected, transported or handled. A false negative result should be considered if patient's recent exposures or clinical presentation indicate that COVID-19 (SARS-CoV-2) is likely and diagnostic tests for other causes of illness are negative. Re-testing should be considered in cases of suspected false negatives.The limit of detection for this assay is 800 copies/mL.This SARS CoV-2 test is a real-time RT-PCR test intended for the qualitative detection of nucleic acid from SARS-CoV-2 in a nasopharyngeal swab specimen collected from individuals susp ected of COVID-19 by their healthcare provider.This test has not been Food and Drug [...] is revoked under Section 564(g) of the Act.Fact Sheet for Healthcare Providers:https://www.[employer].com/sites/default/files/product/documents/Fact_Shee t_SX_Ydnzfasxj_Ozti_OQBK-YhO-4.pdfFact Sheet for Healthcare Patients:https://www.[employer].com/sites/default/files/product/ documents/Wiau_Ljfpo_Glaybqfq_Qgtm_DSUZ-ZfV-7.pdfPerforming Laboratory:[facility], [place] [address]BMAA (single breath diffusion)2019-09-30 14:22:00Dandy Duran RRT, CENTER SALES AND SERVICE ASSOCIATE 09/30/2019 4:18 [facility] PFT CHARTING REPORT Infection Control/Hand Hygiene procedures followed throughout the encounter with patient: YesPatient Identification Method: Patient name verified on armband, and Medical record on armband, Is the order complete?: Yes Account ID#: [id number] Name: Ana Saunders Birthdate: 1955 Age: 64 y.o. Sex: male Admission Date: 09/23/2019 Patient Status: Inpatient Reasons/Symptom for having the Test?: a history/complaint of a dyspnea Type of study/treatment ordered by physician: Lung volumes with bronchodilator(s) and Single Breath DLCO Lab Results Component Value Date HGB 10.7 (L) 09/27/2019 Ranges: Adult Male 13 - 16.8 g/dl Adult Female 12 - 15 g/dl 6 Minute Walk (read only) 09/30/2019 09/30/2019 09/30/2019 Pulse 54 78 71 [id number] 99 98 Study Date: 09/30/19 Study Time: 1422 ASSESSMENT History & Physical Modeof Arrival: Wheel chair Pulse: 78 Resp: 19 SPO2: 99 % on RA Pain Assessment Pain:None TESTING/THERAPEUTICS Medications ordered or required for procedure: N/A PT EDUCATION/INSTRUCTIONS Barriers to learning: No known barriers to learning. Learning need identified: Yes, Patient/Family/Guradian was informed of the ordered study by the physician Barriers to performing study or treatment: Patient has no known disability to perform the study or treatment. DISCHARGE The study was completed in accordance with the physician's order and patient released from the lab without adverse outcome.[facility] Pulmonary Funct Lab [id number] 14:22:00Dandy Duran, OMARI, CENTER SALES AND SERVICE ASSOCIATE 09/30/2019 4:18 [facility] PFT CHARTING REPORT Infection Control/Hand Hygiene procedures followed throughout the encounter with patient: YesPatient Identification Method: Patient name verified on armband, and Medical record on armband, Is the order complete?: Yes Account ID#: [id number] Name: Ana Saunders Birthdate: 1955 Age: 64 y.o. Sex: male Admission Date: 09/23/2019 Patient Status: Inpatient Reasons/Symptom for having the Test?: a history/complaint of a dyspnea Type of study/treatment ordered by physician: Lung volumes with bronchodilator(s) and Single Breath DLCO Lab Results Component Value Date HGB 10.7 (L) 09/27/2019 Ranges: Adult Male 13 - 16.8 g/dl Adult Female 12 - 15 g/dl 6 Minute Walk (read only) 09/30/2019 09/30/2019 09/30/2019 Pulse 54 78 71 WfW041 99 98 Study Date: 09/30/19 Study Time: 1422 ASSESSMENT History & Physical Modeof Arrival: Wheel chair Pulse: 78 Resp: 19 SPO2: 99 % on RA Pain Assessment Pain:None TESTING/THERAPEUTICS Medications ordered or required for procedure: N/A PT EDUCATION/INSTRUCTIONS Barriers to learning: No known barriers to learning. Learning need identified: Yes, Patient/Family/Guradian was informed of the ordered study by the physician Barriers to performing study or treatment: Patient has no known disability to perform the study or treatment. DISCHARGE The study was completed in accordance with the physician's order and patient released from the lab without adverse outcome.[facility] [id number] 14:22:00Dandy Duran, OMARI, CENTER SALES AND SERVICE ASSOCIATE 09/30/2019 4:18 [facility] PFT CHARTING REPORT Infection Control/Hand Hygiene procedures followed throughout the encounter with patient: YesPatient Identification Method: Patient name verified on armband, and Medical record on armband, Is the order complete?: Yes Account ID#: [id number] Name: Ana Saunders Birthdate: [birth year] Age: 64 y.o. Sex: male Admission Date: 09/23/2019 Patient Status: Inpatient Reasons/Symptom for having the Test?: a history/complaint of a dyspnea Type of study/treatment ordered by physician: Lung volumes with bronchodilator(s) and Single Breath DLCO Lab Results Component Value Date HGB 10.7 (L) 09/27/2019 Ranges: Adult Male 13 - 16.8 g/dl Adult Female 12 - 15 g/dl 6 Minute Walk (read only) 09/30/2019 09/30/2019 09/30/2019 Pulse 54 78 71 [id number] 99 98 Study Date: 09/30/19 Study Time: 1422 ASSESSMENT History & Physical Modeof Arrival: Wheel chair Pulse: 78 Resp: 19 SPO2: 99 % on RA Pain Assessment Pain:None TESTING/THERAPEUTICS Medications ordered or required for procedure: N/A PT EDUCATION/INSTRUCTIONS Barriers to learning: No known barriers to learning. Learning need identified: Yes, Patient/Family/Guradian was informed of the ordered study by the physician Barriers to performing study or treatment: Patient has no known disability to perform the study or treatment. DISCHARGE The study was completed in accordance with the physician's order and patient released from the lab without adverse outcome.[facility] HospitalCarb[facility]ydrate antigen 19-9 (CA 19-9) 2019-09-30 14:08:00 Test Item Value Reference Range Interpretation Comments CA 19-9 12 U/mL <34 This test was (test code = performed using the 26549-9) Siemens Chemiluminescen t method.Values o btained from different assay methods cannot be used interchangeably .CA19-9 levels, regardl ess of value, should n ot be interpreted as absoluteevidenc e of the presence or abs ence of disease. RAFAEL (test Performing Lab code = RAFAEL) EZ xAd [facility] [address] [place] [address] Jacqueline Taylor MD, PhD, TIMOTEO [facility] HospitalTISSUE [id number] 11:59:00Surgical Pathology Report Case: [id number] Authorizing Provider: Marilee Lane MD Collected: 09/29/2019 11:20 AM Ordering Location: [address] Received: 09/29/2019 01:57 PM Service Pathologist: Binu Magallon MD Specimen: Rectum, rectal bx PART A RECTAL BIOPSY:FOCALLY ACTIVE NONSPECIFIC COLITIS.NEGATIVE FOR GRANUMOLAS, DYSPLASIA, OR INVASIVE CARCINOMA. Signing Pathologist Direct Phone Line: [phone] signed by Binu Magallon MD on 09/30/2019 at 11:59 [id number] Rectum, description rectal biopsy One specimen is received inone part labeled with the patient's name and MR number corresponding to the requisition with the same information.Received in formalin labeled "rectum" are two conti-pink irregular pieces of tissue measuring 0.2 x 0.2 x 0.1 cm and 0.3 x 0.2 x 0.2 cm. The specimen is submitted entirely in cassette A1. MA/ewLAVERNE. [facility], Department of Pathology, [address] [place] [address], [facility], [address] [place] [address], [facility]vrlcdSan [facility], Department of Pathology, [address] [place] [address], SRHAKY [id number] 08:35:00Surgical Pathology Report Case: [id number] Authorizing Provider: Vandana Cuenca MD Collected: 09/24/2019 01:15 PM Ordering Location: [address] Received: 09/24/2019 04:15 PM Service Pathologist: Hilda Tran MD Specimen: Duodenum, duodenal stricture biospy; STAT REASON FOR ADDENDUM: TO REPORT MMR IMMUNOHISTOCHEMISTRY:IHC testing for all four MMR proteins was performed on selected block A1 with appropriate controls. RESULTS MLH1: Intact nuclear expression MSH2: Intact nuclear expression MSH6: Intact nuclear expression PMS2: Intact nuclear expression IHC Interpretation No loss of nuclear expression of MMR proteins: low probability of microsatellite instability-high (MSI-H)Thereare exceptions to the above IHC interpretations. These results should not be considered in isolation, and clinical correlation with genetic counseling is recommended to assess the need for germline testing.CPT CODE:[id number] electronically signed by Hilda Tran MD on 09/30/2019 at8:35 AMA. 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 The overlying mucosa is unremarkable and shows no evidence ofdysplasia. Immunostain for CK20, CDX2 and CAM5.2 are positive; CK7 is focally positive. Immunostainsfor synaptophysin, chromogranin are negative.Immunoprofile is not entirely specific. Possibility of metastasis from lower GI tract (or) from pancreas should be excluded.[id number] hemorrhage Duodenum, description duodenal stricture biopsy One specimen is received in one part labeled with the patient's name and MR number corresponding to the requisition with the same information.Received in formalin labeled "duodenum" are four conti-pink irregular pieces of tissue measuring 0.2 cm, 0.2 cm, and 0.4 cm and 0.4 cm in greatest dimensions. The specimen is submitted entirely in cassette A1. MA/ewPerformed.The interpretation of this case included the use of immunohistochemistry or special stains.Control Slides Examined: In-house known positive controls were evaluated along with the test tissue. These control slides run alongside of the patients sample show appropriate staining. Internal positive and negative controls when available are evaluated Immunohistochemistry technical testing was performed at [facility], Pathology Laboratory where it was developed and its performance characteristics were determined. It has not been cleared or approved by the U.S. Food and Drug Administration. The FDA has determined that such clearance or approval is not necessary.The test is used for clinical purposes. It should not be regarded as investigational or for research. This laboratory is certified under the Clinical Laboratory Improvement Amendments of 1988 (CLIA-88)as qualified to perform high complexity clinical laboratory testing.Treadmill tolerance(Non-Nuclear Treadmill)2019-09-29 18:07:26Interface, External Ris In - 09/29/2019 6:07 PM CDTProtocol Name Regadenoson Time In Exercise Phase00:01:00 Max. Systolic BP 113 mmHgMax Diastolic BP 54 mmHgMax Heart Rate 76 BPMMax Predicted Heart Rate 157 BPMReason For Termination Predetermined end point Reason for Test Pre Op Cardiac Clearance/Risk startification Target HR Formula (220 - Age)*100% Arrhythmias none Resting ECG sinus bradycardia 1st Degree AV block,anteroseptal infarct age undeST Changes No Significant Changes Overall Impression Indeterminate due to pharmacological stress Chest Pain none HR Response To Exercise BP Response To Exercise atorvastatin,zetia,losartanConfirmed by fellow Dana Osuna ([id number]) on 09/26/2019 2:27:18 PMConfirmed by MD SAVAGE YOCHAI ([id number]) on 09/29/2019 6:07:21 [facility]2019-09-29 10:06:00 Test Item Value Reference Range Interpretation Comments SARS-COV2/RT-PCR (test Negative Not Detected, Negative, code = 0103188) See external report for linked test SARS-COV-2 PERFORMING LAB [facility] (test code = 9808879) Negative result for this test determines that SARS-CoV-2 RNA was not present in the specimen above the Limit of Detection (LOD). However, Negative results do not preclude SARS-CoV-2 infection and should not be used as the sole basis for treatment or patient management decisions. Negative results mustbe combined with clinical observations, patient history, and epidemiological information. A false negative result may occur if a specimen is improperly collected, transported or handled. A false negative result should be considered if patient's recent exposures or clinical presentation indicate that COVID-19 (SARS-CoV-2) is likely and diagnostic tests for other causes of illness are negative. Re-testing should be considered in cases of suspected false negatives.The limit of detection for this assay is 800 copies/mL.This SARS CoV-2 test is a real-time RT-PCR test intended for the qualitative detection of nucleic acid from SARS-CoV-2 in a nasopharyngeal swab specimen collected from individuals susp ected of COVID-19 by their healthcare provider.This test has not been Food and Drug [...] is revoked under Section 564(g) of the Act.Fact Sheet for Healthcare Providers:https://www.[employer]/sites/default/files/product/documents/Fact_Shee a_ZG_Alqjbrdyu_Vsoe_DPHF-QkP-6.pdfFact Sheet for Healthcare Patients:https://www.[employer]/sites/default/files/product/ documents/Trxp_Yyjjd_Isxzdywm_Jmiv_URZU-HpR-2.pdfPerforming Laboratory:[facility], [place] [address]WQU 12 [id number] 07:40:29Interface, External Ris In - 09/29/2019 7:40 AM CDTVentricular Rate 54 BPMAtrial Rate 54 BPMP-R Interval 220 msQRS Duration 86 msQ-T Interval 428 msQTC Calculation(Bazett) 405 msP Shandon 66 degreesR Shandon 32 degreesT [place]andon 59 degreesSinus bradycardia with 1st degree A-V blockAnteroseptal infarct , age und eterminedAbnormal ECGWhen compared with ECG of 27 Jun 2018 02:47,No significant change was foundConfirmed by Funmilayo STEVE MICHAEL ([id number]) on 09/29/2019 7:40:27 [facility] HospitalElectrolytes2020-[facility]-23 11:52:00 Test Item Value Reference Range Interpretation Comments Sodium (test code = 134 meq/L 136-145 L 2951-2) Potassium (test code = 3.9 meq/L 3.5-5.1 2823-3) Chloride (test code = 104 meq/L 98-107 2075-0) CO2 (test code = 2027-9) 23 meq/L 22-29 RAFAEL (test code = RAFAEL) Site Controller ID - YVETTE Dre Lab Interpretation (test Abnormal code = 37044-3) [facility] HospitalELECTROLYTES2020-08-23 11:52:00 Test Item Value Reference Range Interpretation Comments SODIUM (BEAKER) (test code = 381) 134 meq/L 136-145 L POTASSIUM (BEAKER) (test code = 3.9 meq/L 3.5-5.1 379) CHLORIDE (BEAKER) (test code = 382) 104 meq/L 98-107 CO2 (BEAKER) (test code = 355) 23 meq/L 22-29 Site Controller ID - YVETTE MBASIC METABOLIC [id number] 13:40:00 Test Item Value Reference Range Interpretation Comments SODIUM (BEAKER) (test 136 meq/L 136-145 code = 381) POTASSIUM (BEAKER) 3.4 meq/L 3.5-5.1 L (test code = 379) CHLORIDE (BEAKER) 104 meq/L 98-107 (test code = 382) CO2 (BEAKER) (test 26 meq/L 22-29 code = 355) BLOOD UREA NITROGEN 2 mg/dL 7-21 L (BEAKER) (test code = 354) CREATININE (BEAKER) 0.65 mg/dL 0.57-1.25 (test code = 358) GLUCOSE RANDOM 102 mg/dL 70-105 (BEAKER) (test code = 652) CALCIUM (BEAKER) 7.8 mg/dL 8.4-10.2 L (test code = 697) EGFR (BEAKER) (test INSUFFIC IENT CLINICAL code = 1092) DATA TO CALCULA TE ESTIMATED GFR. Site Controller ID - YVETTE [facility] W/PLT COUNT & AUTO [id number] 09:53:00 Test Item Value Reference Range Interpretation Comments WHITE BLOOD CELL COUNT (BEAKER) 6.6 K/ L 3.5-10.5 (test code = 775) RED BLOOD CELL COUNT (BEAKER) 3.61 M/ L 4.63-6.08 L (test code = 761) HEMOGLOBIN (BEAKER) (test code = 10.7 GM/DL 13.7-17.5 L 410) HEMATOCRIT (BEAKER) (test code = 30.4 % 40.1-51.0 L 411) MEAN CORPUSCULAR VOLUME (BEAKER) 84.2 fL 79.0-92.2 (test code = 753) MEAN CORPUSCULAR HEMOGLOBIN 29.6 pg 25.7-32.2 (BEAKER) (test code = 751) MEAN CORPUSCULAR HEMOGLOBIN CONC 35.2 GM/DL 32.3-36.5 (BEAKER) (test code = 752) RED CELL DISTRIBUTION WIDTH 13.4 % 11.6-14.4 (BEAKER) (test code = 412) PLATELET COUNT (BEAKER) (test 300 K/CU MM 150-450 code = 756) MEAN PLATELET VOLUME (BEAKER) 9.7 fL 9.4-12.4 (test code = 754) NUCLEATED RED BLOOD CELLS 0 /100 WBC 0-0 (BEAKER) (test code = 413) NEUTROPHILS RELATIVE PERCENT 68 % (BEAKER) (test code = 429) LYMPHOCYTES RELATIVE PERCENT 22 % (BEAKER) (test code = 430) MONOCYTES RELATIVE PERCENT 9 % (BEAKER) (test code = 431) EOSINOPHILS RELATIVE PERCENT 1 % (BEAKER) (test code = 432) BASOPHILS RELATIVE PERCENT 0 % (BEAKER) (test code = 437) NEUTROPHILS ABSOLUTE COUNT 4.49 K/ L 1.78-5.38 (BEAKER) (test code = 670) LYMPHOCYTES ABSOLUTE COUNT 1.44 K/ L 1.32-3.57 (BEAKER) (test code = 414) MONOCYTES ABSOLUTE COUNT (BEAKER) 0.59 K/ L 0.30-0.82 (test code = 415) EOSINOPHILS ABSOLUTE COUNT 0.07 K/ L 0.04-0.54 (BEAKER) (test code = 416) BASOPHILS ABSOLUTE COUNT (BEAKER) 0.02 K/ L 0.01-0.08 (test code = 417) IMMATURE GRANULOCYTES-RELATIVE 0 % 0-1 PERCENT (BEAKER) (test code = 2801) CT, CHEST, WITH [id number] 22:43:00Unlisted Reason for Exam - Click Yes and Enter Reason Below->YesUnlisted Reason for Exam->cancer of duodonum, stagingAnesthesia:->NoneFINAL REPORT TECHNIQUE: CT of the chest with intravenous contrast and abdomenand pelvis without and WITH intravenous contrast and WITHOUT oral contrast. Dose modulation, iterative reconstruction, and/or weight-based adjustment of the mA/kV was utilized to reduce the radiation dose to as low as reasonably achievable. INDICATION: Neoplasm: abdomencancer of duodenum, staging COMPARISON: CT abdomen pelvis 09/25/2019. FINDINGS: LINES/TUBES: None. LUNGS AND AIRWAYS: There is mild di ffuse bronchial wall thickening. Central airways are otherwise patent. There are patchy groundglass opacities throughout the left lung.. There are dependent opacities in the bilateral lower lobes, leftgreater than right..PLEURA: Small bilateral pleural effusions..HEART AND MEDIASTINUM: The visualizedthyroid gland is normal. No significant mediastinal, hilar, or axillary lymphadenopathy. The heart and pericardium are within normal limits. Atherosclerotic coronary artery calcifications. HEPATOBILIARY: Subtle hypodense lesion within segment six of the liver measuring 8 mm seen on the portal venous phase exam. (See axial image 85). 6 mm cyst within segment two.. Gallbladder is distended. There is intra and extra hepatic biliary duct dilation. There is normal insertion of the cystic duct. SPLEEN: Nosplenomegaly.PANCREAS: No focal masses or ductal dilatation. ADRENALS: No adrenal nodules.KIDNEYS/URETERS: No hydronephrosis or solid mass lesions. There are multiple bilateral nonobstructing renal calculi measuring up to 3 mm in the upper pole of the right kidney.PELVIC ORGANS/BLADDER: Unremarkable. PERITONEUM/RETROPERITONEUM: Trace free pelvic fluid. No focal fluid collection or free air..LYMPH NODES: There are few mildly enlarged mesenteric and retroperitoneal lymph nodes. For instance a left paraaortic lymph node measures 1 x 1.5 cm. (See axial image 77).. A periduodenal lymph node measures 1.1x 0.6 cm. (Axial image 1)VESSELS: Atherosclerotic changes are noted in the abdominal aorta and branch vessels. No evidence of aneurysmal dilation. Incidental note is made of an accessory left hepatic artery arising from the left gastric artery. GI TRACT: Mild nonspecific wall thickening of the second p ortion of the duodenum with adjacent fat stranding. Bowel loops are otherwise normal in caliber without evidence of obstruction.. BONES AND SOFT TISSUES: Degenerative changes are noted in spine. No suspicious osseous lesion.. IMPRESSION:Mild wall thickening of the second portion of the duodenum consistent with known malignancy. This causes mild intra and extrahepatic biliary duct dilation. Multiple mildly enlarged retroperitoneal and mesenteric lymph nodes which may represent metastatic disease. 8 mm hypodense lesion within segment six of the liver, not characterized on this exam. Metastatic disease cannot be excluded. Trace free pelvic fluid. No intrathoracic metastatic disease. Patchy groundglass opacities throughout the left lung concerning for pneumonia. There are small bilateral pleural effusions with dependent lower lobe consolidative opacities which may represent atelectasis and/or pneumonia. Signed: Cedrick Jaimes MDReport Verified Date/Time: 09/26/2019 22:43:45 Reading Location: [address] Transitional Reading Room CT, [id number] 22:43:00Per panc protocolReason for exam:->evaluation of duodenal neoplasm; pelase obtain CT pancreas protocolWhat is the patient's sedation requirement?->No Sedation FINAL REPORT TECHNIQUE: CT of the chest with intravenous contrast and abdomenand pelvis without and WITH intravenous contrast and WITHOUT oral contrast. Dose modulation, iterative reconstruction, and/or weight-based adjustment of the mA/kV was utilized to reduce the radiation dose to as low as reasonably achievable. INDICATION: Neoplasm: abdomencancer of duodenum, staging COMPARISON: CT abdomen pelvis 09/25/2019. FINDINGS: LINES/TUBES: None. LUNGS AND AIRWAYS: There is mild diffuse bronchial wall thickening. Central airways are otherwise patent. There are patchy groundglass opacities throughout the left lung.. There are dependent opacities in the bilateral lower lobes, leftgreater than right..PLEURA: Small bilateral pleural effusions..HEART AND MEDIASTINUM: The visualizedthyroid gland is normal. No significant mediastinal, hilar, or axillary lymphadenopathy. The heart and pericardium are within normal limits. Atherosclerotic coronary artery calcifications. HEPATOBILIARY: Subtle hypodense lesion within segment six of the liver measuring 8 mm seen on the portal venous phase exam. (See axial image 85). 6 mm cyst within segment two.. Gallbladder is distended. There is intra and extra hepatic biliary duct dilation. There is normal insertion of the cystic duct. SPLEEN: Nosplenomegaly.PANCREAS: No focal masses or ductal dilatation. ADRENALS: No adrenal nodules.KIDNEYS/URETERS: No hydronephrosis or solid mass lesions. There are multiple bilateral nonobstructing renal calculi measuring up to 3 mm in the upper pole of the right kidney.PELVIC ORGANS/BLADDER: Unremarkable. PERITONEUM/RETROPERITONEUM: Trace free pelvic fluid. No focal fluid collection or free air..LYMPH NODES: There are few mildly enlarged mesenteric and retroperitoneal lymph nodes. For instance a left paraaortic lymph node measures 1 x 1.5 cm. (See axial image 77).. A periduodenal lymph node measures 1.1x 0.6 cm. (Axial image 1)VESSELS: Atherosclerotic changes are noted in the abdominal aorta and branch vessels. No evidence of aneurysmal dilation. Incidental note is made of an accessory left hepatic artery arising from the left gastric artery. GI TRACT: Mild nonspecific wall thickening of the second portion of the duodenum with adjacent fat stranding. Bowel loops are otherwise normal in caliber without evidence of obstruction.. BONES AND SOFT TISSUES: Degenerative changes are noted in spine. No suspicious osseous lesion.. IMPRESSION:Mild wall thickening of the second portion of the duodenum consistent with known malignancy. This causes mild intra and extrahepatic biliary duct dilation. Multiple mildly enlarged retroperitoneal and mesenteric lymph nodes which may represent metastatic disease. 8 mm hypodense lesion within segment six of the liver, not characterized on this exam. Metastatic disease cannot be excluded. Trace free pelvic fluid. No intrathoracic metastatic disease. Patchy groundglass opacities throughout the left lung concerning for pneumonia. There are small bilateral pleural effusions with dependent lower lobe consolidative opacities which may represent atelectasis and/or pneumonia. Signed: Cedrick Jaimes MDReport Verified Date/Time: 09/26/2019 22:43:45 Reading Location: [address] Transitional Reading Room CT abdomen/pelvis without & with IV [id number] 22:43:00 Interface, External Ris In - 09/26/2019 10:45 PM CDTFINAL REPORT TECHNIQUE: CT of the chest with intravenous contrast and abdomen and pelvis without and WITH intravenous contrastand WITHOUT oral contrast. Dose modulation, iterative reconstruction, and/or weight-based adjustmentof the mA/kV was utilized to reduce the radiation dose to as low as reasonably achievable. INDICATION: Neoplasm: abdomencancer of duodenum, staging COMPARISON: CT abdomen pelvis 09/25/2019. FINDINGS: LINES/TUBES: None. LUNGS AND AIRWAYS: There is mild diffuse bronchial wall thickening. Central airwaysare otherwise patent. There are patchy groundglass opacities throughout the left lung.. There are dependent opacities in the bilateral lower lobes, left greater than right..PLEURA: Small bilateral pleural effusions..HEART AND MEDIASTINUM: The visualized thyroid gland is normal. No significant mediastinal, hilar, or axillary lymphadenopathy. The heart and pericardium are within normal limits. Atherosclerotic coronary artery calcifications. HEPATOBILIARY: Subtle hypodense lesion within segment six of the liver measuring 8 mm seen on the portal venous phase exam. (See axial image 85). 6 mm cyst withinsegment two.. Gallbladder is distended. There is intra and extra hepatic biliary duct dilation. There is normal insertion of the cystic duct. SPLEEN: No splenomegaly.PANCREAS: No focal masses or ductaldilatation. ADRENALS: No adrenal nodules.KIDNEYS/URETERS: No hydronephrosis or solid mass lesions. Th ere are multiple bilateral nonobstructing renal calculi measuring up to 3 mm in the upper pole of the right kidney.PELVIC ORGANS/BLADDER: Unremarkable. PERITONEUM/RETROPERITONEUM: Trace free pelvic fluid. No focal fluid collection or free air..LYMPH NODES: There are few mildly enlarged mesenteric and r etroperitoneal lymph nodes. For instance a left paraaortic lymph node measures 1 x 1.5 cm. (See axial image 77).. A periduodenal lymph node measures 1.1 x 0.6 cm. (Axial image 1)VESSELS: Atherosclerotic changes are noted in the abdominal aorta and branch vessels. No evidence of aneurysmal dilation. Incidental note is made of an accessory left hepatic artery arising from the left gastric artery. GI TRACT: Mild nonspecific wall thickening of the second portion of the duodenum with adjacent fat stranding. Bowel loops are otherwise normal in caliber without evidence of obstruction.. BONES AND SOFT TISSUES: Degenerative changes are noted in spine. No suspicious osseous lesion.. IMPRESSION:Mild wall thickening of the second portion of the duodenum consistent with known malignancy. This causes mild intra and extrahepatic biliary duct dilation. Multiple mildly enlarged retroperitoneal and mesenteric lymph nodes which may represent metastatic disease. 8 mm hypodense lesion within segment six of the liver, not characterized on this exam. Metastatic disease cannot be excluded. Trace free pelvic fluid. No intrathoracic metastatic disease. Patchy groundglass opacities throughout the left lung concerning for pneumonia. There are small bilateral pleural effusions with dependent lower lobe consolidative opacities which may represent atelectasis and/or pneumonia. Signed: Cedrick Jaimes MDReport Verified Date/Time: 09/26/2019 22:43:45 Reading Location: [address] [facility]itional [facility] 2019-09-26 22:43:00Interface, External Ris In - 09/26/2019 10:45 PM CDTFINAL REPORT TECHNIQUE: CT of the chest with intravenous contrast and abdomen and pelvis without and WITH intravenous contrastand WITHOUT oral contrast. Dose modulation, iterative reconstruction, and/or weight-based adjustmentof the mA/kV was utilized to reduce the radiation dose to as low as reasonably achievable. INDICATION: Neoplasm: abdomencancer of duodenum, staging COMPARISON: CT abdomen pelvis 09/25/2019. FINDINGS: LINES/TUBES: None. LUNGS AND AIRWAYS: There is mild diffuse bronchial wall thickening. Central airwaysare otherwise patent. There are patchy groundglass opacities throughout the left lung.. There are dependent opacities in the bilateral lower lobes, left greater than right..PLEURA: Small bilateral pleural effusions..HEART AND MEDIASTINUM: The visualized thyroid gland is normal. No significant mediastinal, hilar, or axillary lymphadenopathy. The heart and pericardium are within normal limits. Atherosclerotic coronary artery calcifications. HEPATOBILIARY: Subtle hypodense lesion within segment six of the liver measuring 8 mm seen on the portal venous phase exam. (See axial image 85). 6 mm cyst withinsegment two.. Gallbladder is distended. There is intra and extra hepatic biliary duct dilation. There is normal insertion of the cystic duct. SPLEEN: No splenomegaly.PANCREAS: No focal masses or ductaldilatation. ADRENALS: No adrenal nodules.KIDNEYS/URETERS: No hydronephrosis or solid mass lesions. There are multiple bilateral nonobstructing renal calculi measuring up to 3 mm in the upper pole of the right kidney.PELVIC ORGANS/BLADDER: Unremarkable. PERITONEUM/RETROPERITONEUM: Trace free pelvic fluid. No focal fluid collection or free air..LYMPH NODES: There are few mildly enlarged mesenteric and retroperitoneal lymph nodes. For instance a left paraaortic lymph node measures 1 x 1.5 cm. (See axial image 77).. A periduodenal lymph node measures 1.1 x 0.6 cm. (Axial image 1)VESSELS: Atherosclerotic changes are noted in the abdominal aorta and branch vessels. No evidence of aneurysmal dilation. Incidental note is made of an accessory left hepatic artery arising from the left gastric artery. GI TRACT: Mild nonspecific wall thickening of the second portion of the duodenum with adjacent fat strandin g. Bowel loops are otherwise normal in caliber without evidence of obstruction.. BONES AND SOFT TISSUES: Degenerative changes are noted in spine. No suspicious osseous lesion.. IMPRESSION:Mild wall thickening of the second portion of the duodenum consistent with known malignancy. This causes mild intra and extrahepatic biliary duct dilation. Multiple mildly enlarged retroperitoneal and mesenteric lymph nodes which may represent metastatic disease. 8 mm hypodense lesion within segment six of the liver, not characterized on this exam. Metastatic disease cannot be excluded. Trace free pelvic fluid. No intrathoracic metastatic disease. Patchy groundglass opacities throughout the left lung concerning for pneumonia. There are small bilateral pleural effusions with dependent lower lobe consolidative opacities which may represent atelectasis and/or pneumonia. Signed: Cedrick Jaimes MDReport Verified Date/Time: 09/26/2019 22:43:45 Reading Location: [address] Transitional Reading [facility] PERF REST AND [id number] 15:20:00 Reason for exam:->preopFINAL REPORT PROCEDURE: MYOCARDIAL PERFUSION PET/CT IMAGING (Rest/Stress)CPT CODE: 49768, 21125 INDICATION: Preop risk stratification CARDIOVASCULAR PROFILE:CAD History: HI, stentSymptoms: NoneRisk Factors: Hypertension, hyperlipidemia, tobaccoBMI: 23.2Medications: Atorvastatin,Zetia, losartan STRESS PROTOCOL:Pharmacologic stress was achieved with a 10-second intravenous infusion of regadenoson 0.4 mg. The radiopharmaceutical was administered 30 seconds after the start of the regadenoson infusion. IMAGING PROTOCOL:Limited low-dose CT imaging was performed for attenuation correction. 39.5 mCi of Rb-82 chloride was injected intravenously at rest, and gated PET images were obtained. Then, 39.2 mCi of Rb- 82 chloride was injected intravenously at peak stress, and gated PET images were obtained. Image quality is good. REST FINDINGS:HR: 52/minBP: 109/59 mmHgPrelim. EKG: Sinus bradycardia, first-degree AV block, anteroseptal infarct.Perfusion: There is a small, mild, perfusion defect in the apex. Wall Motion: Normal (LVEF 60%).LV Volume: Normal.RV Volume: Normal. STRESS FINDINGS:HR: 76/min (48% of MPHR)BP: 113/54 mmHgPrelim. EKG: No ischemic changes.Symptoms: Dyspnea (treatment not required).Perfusion: There is a small, mild, perfusion defect in the apex. Wall Motion: Normal (LVEF 63%).LV Volume: Not significantly changed from rest. IMPRESSION:1. Abnormal study.2. Abnormal myocardial perfusion. There is a small, mild, fixed perfusion defect in the apex. 3. Normal resting LVEF, which does not deteriorate with pharmacologic stress.4. Normal extracardiac tracer distribution.5. There is no prior study for comparison. Signed: Sinan Abdi MDReport Verified Date/Time: 09/26/2019 15:20:15 Reading Location: [address] Reading Room [place] Myocardial Perfusion Pet/CT (Rest & Stress)2019-09-26 15:20:00Interface, External Ris In - 09/26/2019 3:22 PM CDTFINAL REPORT PROCEDURE: MYOCARDIAL PERFUSION PET/CT IMAGING (Rest/Stress)CPT CODE: 23200, 57958 INDICATION: Preop risk stratifi cation CARDIOVASCULAR PROFILE:CAD History: HI, stentSymptoms: NoneRisk Factors: Hypertension, hyperlipidemia, tobaccoBMI: 23.2Medications: Atorvastatin, Zetia, losartan STRESS PROTOCOL:Pharmacologic stress was achieved with a 10-second intravenous infusion of regadenoson 0.4 mg. The radiopharmaceutical was administered 30 seconds after the start of the regadenoson infusion. IMAGING PROTOCOL:Limited low-dose CT imaging was performed for attenuation correction. 39.5 mCi of Rb-82 chloride was injected intravenously at rest, and gated PET images were obtained. Then, 39.2 mCi of Rb-82 chloride was injected intravenously at peak stress, and gated PET images were obtained. Image quality is good. REST FINDINGS:HR: 52/minBP: 109/59 mmHgPrelim. EKG: Sinus bradycardia, first-degree AV block, anteroseptal infarct.Perfusion: There is a small, mild, perfusion defect in the apex. Wall Motion: Normal (LVEF 60%).LV Volume: Normal.RV Volume: Normal. STRESS FINDINGS:HR: 76/min (48% of MPHR)BP: 113/54 mmHgPrelim. EKG: No ischemic changes.Symptoms: Dyspnea (treatment not required).Perfusion: There is a small, mild, perfusion defect in the apex. Wall Motion: Normal (LVEF 63%).LV Volume: Not significantly changed from rest. IMPRESSION:1. Abnormal study.2. Abnormal myocardial perfusion. There is a small, mild, fixed perfusion defect in the apex. 3. Normal resting LVEF, which does not deteriorate with pharmacologicstress.4. Normal extracardiac tracer distribution.5. There is no prior study for comparison. Signed:Sinan Abdi MDReport Verified Date/Time: 09/26/2019 15:20:15 Reading Location: [address] [facility] 14[facility]30[facility]00 Test Item Value Reference Range Interpretation Comments Potassium (test code = 3.4 meq/L 3.5-5.1 L 2823-3) RAFAEL (test code = RAFAEL) Site Controller ID - NTP Lab Interpretation (test Abnormal code = 10164-0) [facility]2020-08-21 14:30:00 Test Item Value Reference Range Interpretation Comments POTASSIUM (BEAKER) (test code = 3.4 meq/L 3.5-5.1 L 379) Site Controller ID - [id number] Echo W/Doppler(CW/PW/Color)2019-09-26 12:55:04[facility]ST[facility] MKCKESSON CPACSInterface, External Ris In - 09/26/2019 12:55 PM CDTTransthoracic Echocardiography Report (TTE) Demographics Patient Name ANA SAUNDERS Date of Study 09/26/2019 Gender Male Visit Number [id number] Race Unknown Room Number 922 Number Date of 1955 Referring Physician Adriel Lamb Age 64 year(s) Guest Service Host Robyn Ramos [facility] Interpreting Rasheed Juares MD Physician Procedure Type of Study TTE procedure:2DECHO W DOPPLER(CW/PW/COLOR) (NHUNG) Indications:Acute Chest Pain/ Suspected CAD.Clinical HistoryCAD.Contrast Medium: Definity.Height: 66 inches Weight: 64.86 kg (143 lbs) BSA: 1.73 m^2 BMI: 23.08 kg/m^2HR: 60 bpm BP: 116/62 mmHg Summary The left ventricle is chamber size (by vol index) is normal (male - LVED vol - 34- 74ml/m2). Normal LV wall thickness. The following segment(s) appear akinetic: apical anteroseptum . The other segments contract normally. LVEF by Toribio's method of disk assessment is lower limits of normal (50-55%) . Unable to estimate peak systolic PA pressure; inadequate TR velocitysignal. Signature Findings Left Ventricle The left ventricle [...] Normal PV structure appears normal by available views. A trace of pulmonary regurgitation. Aorta Aortic root size (SInus of Valsalva diameter) is normal . Pericardium No pericardial effusion is visualized. IVC/SVC/PA/PV/Pleural The estimatedRA pressure by IVC dynamics 5-10mmHg . Chambers/Structures [...] 6.94 mmHg Mean Velocity: 0.88 m/s Mean Gradient:3.65 mmHg LVOT Diameter: 2.05 cm LVOT VTI: 26.4 cm LVOT Area: 3.3 cm^2 LVOT SV:87.09 ml LVOT CO: 5.23 l/min LVOT CI: 3.02 l/min/m^2 [facility]2019-09-25 19:13:00 Test Item Value Reference Range Interpretation Comments CEA, SERUM (test code = 5.5 ng/mL 0-5 H 2038-07) RAFAEL (test code = RAFAEL) Site Controller ID - DB Lab Interpretation (test Abnormal code = 19307-7) [facility] (CEA)2019-09-25 19:13:00 Test Item Value Reference Range Interpretation Comments CARCINOEMBRYONIC ANTIGEN (BEAKER) 5.5 ng/mL 0.0-5.0 H (test code = 685) Site Controller ID - DBCT, [id number] 13:21:00Oral contrast as wellUnlisted Reason for Exam - Click Yes and Enter Reason Below->YesUnlisted Reason for Exam->duodenal stricture around [id number] BeginsREPORT STATUS:A Addendum: Wall thickening is seen involving the descending duodenum. Please correlate clinically. Signed: Lyle Fierro MDReport Verified Date/Time: 09/25/2019 13:21:39 Reading [facility] CT Body Reading RoomAddendum EndsFINAL REPORT ABDOMINAL AND PELVIS CT DATED 09/25/2019 CLINICAL INFORMATION: Unlisted Reason for ExamAbdominal distension TECHNIQUE: Axial images of the abdomen and pelvis were obtained from diaphragm to the pubic symphysis with GI and intravenous contrast. This exam was performed according [facility] dose-optimization program, which includes automated exposure control, adjustment ofthe mA and/or kV according to patient size and/or use of interactive reconstruction technique. COMMENT: There is trace left pleural effusion and bibasilar subsegmental atelectasis. Liver and spleen arenormal in size without focal abnormality. Gallbladder is distended. No gallstone is not seen. Moderate biliary dilatation is noted with common bile duct measuring 11 mm in size. Pancreas and adrenalsare unremarkable. Pancreatic duct is normal in caliber. Both kidneys are normal in size and functioning. A 1-2 mm stone is seen in the inferior pole left kidney. Several stones are seen in the right kidney measuring up to 3 mm in size. No hydronephrosis or hydroureter is present. The small and large bowel are unremarkable. Appendix is not visualized. Nonspecific lymph nodes are seen in the periaortic, aortocaval retroperitoneum and at the root of the mesentery. The largest lymph node measures approximately 0.9 x 1.3 cm. IMPRESSION: 1. Trace left pleural effusion and bibasilar subsegmental atelectasis.2. Biliary dilatation. Recommend clinical correlation or follow-up with MRCP examination.3. Nonobstructive bilateral renal stones. Signed: Lyle Fierro MDReport Verified Date/Time: 09/25/2019 10:51:28 Reading Location: [facility] C013Y CT Body Reading Room CT abdomen/pelvis with IV [id number] 10:51:00 Interface, External Ris In - 09/25/2019 1:23 PM CDTAddendum BeginsREPORT STATUS:A Addendum: Wall thickening is seen involving the descending duodenum. Please correlate clinically. Signed: Lyle Fierro MDReport Verified Date/Time: 09/25/2019 13:21:39 Reading Location: [facility] C013Y CT Body Reading RoomAddendum EndsFINAL REPORT ABDOMINAL AND PELVIS CT DATED 09/25/2019 CLINICAL INFORMATION: Unlisted Reason for ExamAbdominal distension TECHNIQUE: Axial images of the abdomen and pelvis were obtained from diaphragm to the pubic symphysis with GI and intravenous contrast. This exam was performed according to our departmental dose-optimization program, which includes automated exposure control, adjustment of the mA and/or kV according to patient size and/or use of interactive reconstruction technique. COMMENT: There is trace left pleural effusion and bibasilar subsegmental atelectasis. Liver and spleen are normal in size without focal abnormality. Gallbladder is distended. No gallstone is not seen. Moderate biliary dilatation is noted with common bile duct measuring 11 mm in size. Pancreas and adrenals are unremarkable. Pancreatic duct is normal in caliber. Both kidneys are normal in size and functioning. A 1-2 mm stone is seen in the inferior pole left kidney. Several stones are seen in the right kidney measuring up to 3 mm in size. No hydronephrosis or hydroureter is present. The small and large bowel are unremarkable. Appendix is not visualized. Nonspecific lymph nodes are seen in the periaortic, aortocaval retroperitoneum and at the root of the mesentery. The largest lymph node measures approximately 0.9 x 1.3 cm. IMPRESSION: 1. Trace left pleural effusion and bibasilar subsegmental atelectasis.2. Biliary dilatation. Recommend clinical correlation or follow-up with MRCP examination.3. Nonobstructive bilateral renal stones. Signed: Lyle Fierro MDReport Verified Date/Time: 09/25/2019 10:51:28 Reading [facility] C[facility] 06:13:00 Test Item Value Reference Range Interpretation Comments MAGNESIUM (BEAKER) (test code = 1.6 mg/dL 1.6-2.6 627) Site Controller ID - TALHA WBASIC METABOLIC [id number] 06:13:00 Test Item Value Reference Range Interpretation Comments SODIUM (BEAKER) (test 134 meq/L 136-145 L code = 381) POTASSIUM (BEAKER) 3.1 meq/L 3.5-5.1 L (test code = 379) CHLORIDE (BEAKER) 105 meq/L 98-107 (test code = 382) CO2 (BEAKER) (test 24 meq/L 22-29 code = 355) BLOOD UREA NITROGEN 6 mg/dL 7-21 L (BEAKER) (test code = 354) CREATININE (BEAKER) 0.65 mg/dL 0.57-1.25 (test code = 358) GLUCOSE RANDOM 111 mg/dL 70-105 H (BEAKER) (test code = 652) CALCIUM (BEAKER) 7.8 mg/dL 8.4-10.2 L (test code = 697) EGFR (BEAKER) (test INSUFFIC IENT CLINICAL code = 1092) DATA TO CALCULA TE ESTIMATED GFR. Site Controller ID - TALHA WCBC W/PLT COUNT & AUTO [id number] 05:32:00 Test Item Value Reference Range Interpretation Comments WHITE BLOOD CELL COUNT (BEAKER) 9.6 K/ L 3.5-10.5 (test code = 775) RED BLOOD CELL COUNT (BEAKER) 3.43 M/ L 4.63-6.08 L (test code = 761) HEMOGLOBIN (BEAKER) (test code = 9.7 GM/DL 13.7-17.5 L 410) HEMATOCRIT (BEAKER) (test code = 28.8 % 40.1-51.0 L 411) MEAN CORPUSCULAR VOLUME (BEAKER) 84.0 fL 79.0-92.2 (test code = 753) MEAN CORPUSCULAR HEMOGLOBIN 28.3 pg 25.7-32.2 (BEAKER) (test code = 751) MEAN CORPUSCULAR HEMOGLOBIN CONC 33.7 GM/DL 32.3-36.5 (BEAKER) (test code = 752) RED CELL DISTRIBUTION WIDTH 13.2 % 11.6-14.4 (BEAKER) (test code = 412) PLATELET COUNT (BEAKER) (test 281 K/CU MM 150-450 code = 756) MEAN PLATELET VOLUME (BEAKER) 9.5 fL 9.4-12.4 (test code = 754) NUCLEATED RED BLOOD CELLS 0 /100 WBC 0-0 (BEAKER) (test code = 413) NEUTROPHILS RELATIVE PERCENT 79 % (BEAKER) (test code = 429) LYMPHOCYTES RELATIVE PERCENT 12 % (BEAKER) (test code = 430) MONOCYTES RELATIVE PERCENT 8 % (BEAKER) (test code = 431) EOSINOPHILS RELATIVE PERCENT 1 % (BEAKER) (test code = 432) BASOPHILS RELATIVE PERCENT 0 % (BEAKER) (test code = 437) NEUTROPHILS ABSOLUTE COUNT 7.60 K/ L 1.78-5.38 H (BEAKER) (test code = 670) LYMPHOCYTES ABSOLUTE COUNT 1.19 K/ L 1.32-3.57 L (BEAKER) (test code = 414) MONOCYTES ABSOLUTE COUNT (BEAKER) 0.73 K/ L 0.30-0.82 (test code = 415) EOSINOPHILS ABSOLUTE COUNT 0.05 K/ L 0.04-0.54 (BEAKER) (test code = 416) BASOPHILS ABSOLUTE COUNT (BEAKER) 0.01 K/ L 0.01-0.08 (test code = 417) IMMATURE GRANULOCYTES-RELATIVE 1 % 0-1 PERCENT (BEAKER) (test code = 2801) [id number] 11:31:00 Test Item Value Reference Range Interpretation Comments POTASSIUM (BEAKER) (test code = 3.4 meq/L 3.5-5.1 L 379) Site Controller ID - NTPBASIC METABOLIC [id number] 06:18:00 Test Item Value Reference Range Interpretation Comments SODIUM (BEAKER) (test 136 meq/L 136-145 code = 381) POTASSIUM (BEAKER) 2.9 meq/L 3.5-5.1 L (test code = 379) CHLORIDE (BEAKER) 103 meq/L 98-107 (test code = 382) CO2 (BEAKER) (test 24 meq/L 22-29 code = 355) BLOOD UREA NITROGEN 13 mg/dL 7-21 (BEAKER) (test code = 354) CREATININE (BEAKER) 0.76 mg/dL 0.57-1.25 (test code = 358) GLUCOSE RANDOM 93 mg/dL 70-105 (BEAKER) (test code = 652) CALCIUM (BEAKER) 7.9 mg/dL 8.4-10.2 L (test code = 697) EGFR (BEAKER) (test INSUFFIC IENT CLINICAL code = 1092) DATA TO CALCULA TE ESTIMATED GFR. Site Controller ID - YVETTE [id number] 06:15:00 Test Item Value Reference Range Interpretation Comments MAGNESIUM (BEAKER) (test code = 1.7 mg/dL 1.6-2.6 627) Site Controller ID - YVETTE MCBC W/PLT COUNT & AUTO [id number] 06:06:00 Test Item Value Reference Range Interpretation Comments WHITE BLOOD CELL COUNT (BEAKER) 12.9 K/ L 3.5-10.5 H (test code = 775) RED BLOOD CELL COUNT (BEAKER) 3.57 M/ L 4.63-6.08 L (test code = 761) HEMOGLOBIN (BEAKER) (test code = 10.2 GM/DL 13.7-17.5 L 410) HEMATOCRIT (BEAKER) (test code = 29.7 % 40.1-51.0 L 411) MEAN CORPUSCULAR VOLUME (BEAKER) 83.2 fL 79.0-92.2 (test code = 753) MEAN CORPUSCULAR HEMOGLOBIN 28.6 pg 25.7-32.2 (BEAKER) (test code = 751) MEAN CORPUSCULAR HEMOGLOBIN CONC 34.3 GM/DL 32.3-36.5 (BEAKER) (test code = 752) RED CELL DISTRIBUTION WIDTH 12.8 % 11.6-14.4 (BEAKER) (test code = 412) PLATELET COUNT (BEAKER) (test 307 K/CU MM 150-450 code = 756) MEAN PLATELET VOLUME (BEAKER) 9.7 fL 9.4-12.4 (test code = 754) NUCLEATED RED BLOOD CELLS 0 /100 WBC 0-0 (BEAKER) (test code = 413) NEUTROPHILS RELATIVE PERCENT 81 % (BEAKER) (test code = 429) LYMPHOCYTES RELATIVE PERCENT 11 % (BEAKER) (test code = 430) MONOCYTES RELATIVE PERCENT 8 % (BEAKER) (test code = 431) EOSINOPHILS RELATIVE PERCENT 0 % (BEAKER) (test code = 432) BASOPHILS RELATIVE PERCENT 0 % (BEAKER) (test code = 437) NEUTROPHILS ABSOLUTE COUNT 10.43 K/ L 1.78-5.38 H (BEAKER) (test code = 670) LYMPHOCYTES ABSOLUTE COUNT 1.38 K/ L 1.32-3.57 (BEAKER) (test code = 414) MONOCYTES ABSOLUTE COUNT (BEAKER) 0.99 K/ L 0.30-0.82 H (test code = 415) EOSINOPHILS ABSOLUTE COUNT 0.04 K/ L 0.04-0.54 (BEAKER) (test code = 416) BASOPHILS ABSOLUTE COUNT (BEAKER) 0.01 K/ L 0.01-0.08 (test code = 417) IMMATURE GRANULOCYTES-RELATIVE 0 % 0-1 PERCENT (BEAKER) (test code = 2801) SARS-COV2/RT-PCR ([facility])2019-09-23 18:26:00 Test Item Value Reference Range Interpretation Comments SARS-COV2/RT-PCR (test Negative Not Detected, Negative, code = 0468447) See external report for linked test SARS-COV-2 PERFORMING [facility] (test code = 1970829) Negative result for this test determines that SARS-CoV-2 RNA was not present in the specimen above the Limit of Detection (LOD). However, Negative results do not preclude SARS-CoV-2 infection and should not be used as the sole basis for treatment or patient management decisions. Negative results mustbe combined with clinical observations, patient history, and epidemiological information. A false negative result may occur if a specimen is improperly collected, transported or handled. A false negative result should be considered if patient's recent exposures or clinical presentation indicate that COVID-19 (SARS-CoV-2) is likely and diagnostic tests for other causes of illness are negative. Re-testing should be considered in cases of suspected false negatives.The limit of detection for this assay is 800 copies/mL.This SARS CoV-2 test is a real-time RT-PCR test intended for the qualitative detection of nucleic acid from SARS-CoV-2 in a nasopharyngeal swab specimen collected from individuals susp ected of COVID-19 by their healthcare provider.This test has not been Food and Drug [...] is revoked under Section 564(g) of the Act.Fact Sheet for Healthcare Providers:https://www.[employer]/sites/default/files/product/documents/Fact_Shee p_OR_Bisgmmygu_Hhjx_ZWHX-InM-8.pdfFact Sheet for Healthcare Patients:https://www.[employer]/sites/default/files/product/ documents/Qrxu_Ghaob_Grfterzc_Mgji_NFBR-KiS-5.pdfPerforming Laboratory:[facility].[place], [place] [id number] 15:48:00 Test Item Value Reference Range Interpretation Comments Ferritin (test code = 167.29 ng/mL 5-275 2276-4) RAFAEL (test code = RAFAEL) Site Controller ID - EDASI Lab Interpretation (test Normal code = 27824-6) [facility] 15:48:00 Test Item Value Reference Range Interpretation Comments FERRITIN (BEAKER) (test code = 167.29 ng/mL 5.00-275.00 361) Site Controller ID - EDASIIron, TIBC, % sat. (without ferritin)2019-09-23 15:27:00 Test Item Value Reference Range Interpretation Comments Iron (test code = 2498-4) 43.0 ug/dL 40-160 TIBC (test code = 2500-7) 123 ug/dL 250-450 L Iron % Saturation (test 35 % 20-55 code = 2502-3) RAFAEL (test code = RAFAEL) Site Controller ID - EDASI Lab Interpretation (test Abnormal code = 09190-4) [facility] HospitalIR[facility], TIBC, % SAT. (WITHOUT FERRITIN)2019-09-23 15:27:00 Test Item Value Reference Range Interpretation Comments IRON (BEAKER) (test code = 547) 43.0 ug/dL 40.0-160.0 TOTAL IRON BINDING CAPACITY 123 ug/dL 250-450 L (BEAKER) (test code = 769) IRON % SATURATION (2) (BEAKER) 35 % 20-55 (test code = 2590) Site Controller ID - EDASIBASIC METABOLIC [id number] 07:21:00 Test Item Value Reference Range Interpretation Comments SODIUM (BEAKER) (test 133 meq/L 136-145 L code = 381) POTASSIUM (BEAKER) 3.2 meq/L 3.5-5.1 L (test code = 379) CHLORIDE (BEAKER) 94 meq/L 98-107 L (test code = 382) CO2 (BEAKER) (test 21 meq/L 22-29 L code = 355) BLOOD UREA NITROGEN 43 mg/dL 7-21 H (BEAKER) (test code = 354) CREATININE (BEAKER) 2.36 mg/dL 0.57-1.25 H (test code = 358) GLUCOSE RANDOM 123 mg/dL 70-105 H (BEAKER) (test code = 652) CALCIUM (BEAKER) 8.2 mg/dL 8.4-10.2 L (test code = 697) EGFR (BEAKER) (test INSUFFIC IENT CLINICAL code = 1092) DATA TO CALCULA TE ESTIMATED GFR. Site Controller ID - EDASILipid [id number] 06:59:00 Test Item Value Reference Range Interpretation Comments Triglycerides (test 164 mg/dL code = 2571-8) Cholesterol (test code 142 mg/dL = 2093-3) HDL (test code = 23 mg/dL 5-9) LDL Calculated (test 86 mg/dL code = 29509-7) RAFAEL (test code = RAFAEL) Triglyceride Reference Range: Low Risk <150 Borderline 150-199 High Risk 200-499 Very High Risk >=500 Cholesterol Reference Range: Low Risk <200 Borderline 200-239 High Risk >240 HDL Cholesterol Reference Range: Low Risk >=60 High Risk <40 LDL Cholesterol Reference Range: Optimal <100 Near Optimal 100-129 Borderline 130-159 High 160-189 Very High >=190 Site Controller ID - EDLAISHA [facility] 06:59:00 Test Item Value Reference Range Interpretation Comments MAGNESIUM (BEAKER) (test code = 1.9 mg/dL 1.6-2.6 627) Site Controller ID - EDASILIPID [id number] 06:59:00 Test Item Value Reference Range Interpretation Comments TRIGLYCERIDES (BEAKER) (test code = 164 mg/dL 540) CHOLESTEROL (BEAKER) (test code = 142 mg/dL 631) HDL CHOLESTEROL (BEAKER) (test code 23 mg/dL = 976) LDL CHOLESTEROL CALCULATED (BEAKER) 86 mg/dL (test code = 633) Triglyceride Reference Range: Low Risk <150 Borderline 150-199 High Risk 200-499 Very High Risk >=500Cholesterol Reference Range: Low Risk <200 Borderline 200-239 High Risk >240HDL Cholesterol Reference Range: Low Risk >=60 High Risk <40LDL Cholesterol Reference Range: Optimal <100 Near Optimal 100-129 Borderline 130-159 High 160-189 Very High >=190 Site Controller ID - EDASITroponin [id number] 06:45:00 Test Item Value Reference Range Interpretation Comments Troponin I (test code = 0.02 ng/mL 0-0.03 56529-4) RAFAEL (test code = RAFAEL) Troponin I (TnI) levels must be interpreted [...] failure, acidosis, acute neurological disease, and persistent tachyarrhythmia.Opera tor ID - EDASI Lab Interpretation (test Normal code = 48796-5) [facility]TR[facility] [id number] 06:45:00 Test Item Value Reference Range Interpretation Comments [...] failure, acidosis, acute neurological disease, and persistent tachyarrhythmia.Site Controller ID - EDASICBC W/PLT COUNT & AUTO [id number] 06:19:00 Test Item Value Reference Range Interpretation Comments WHITE BLOOD CELL COUNT (BEAKER) 8.9 K/ L 3.5-10.5 (test code = 775) RED BLOOD CELL COUNT (BEAKER) 4.09 M/ L 4.63-6.08 L (test code = 761) HEMOGLOBIN (BEAKER) (test code = 11.4 GM/DL 13.7-17.5 L 410) HEMATOCRIT (BEAKER) (test code = 33.7 % 40.1-51.0 L 411) MEAN CORPUSCULAR VOLUME (BEAKER) 82.4 fL 79.0-92.2 (test code = 753) MEAN CORPUSCULAR HEMOGLOBIN 27.9 pg 25.7-32.2 (BEAKER) (test code = 751) MEAN CORPUSCULAR HEMOGLOBIN CONC 33.8 GM/DL 32.3-36.5 (BEAKER) (test code = 752) RED CELL DISTRIBUTION WIDTH 12.9 % 11.6-14.4 (BEAKER) (test code = 412) PLATELET COUNT (BEAKER) (test 386 K/CU MM 150-450 code = 756) MEAN PLATELET VOLUME (BEAKER) 9.8 fL 9.4-12.4 (test code = 754) NUCLEATED RED BLOOD CELLS 0 /100 WBC 0-0 (BEAKER) (test code = 413) NEUTROPHILS RELATIVE PERCENT 74 % (BEAKER) (test code = 429) LYMPHOCYTES RELATIVE PERCENT 15 % (BEAKER) (test code = 430) MONOCYTES RELATIVE PERCENT 10 % (BEAKER) (test code = 431) EOSINOPHILS RELATIVE PERCENT 1 % (BEAKER) (test code = 432) BASOPHILS RELATIVE PERCENT 0 % (BEAKER) (test code = 437) NEUTROPHILS ABSOLUTE COUNT 6.56 K/ L 1.78-5.38 H (BEAKER) (test code = 670) LYMPHOCYTES ABSOLUTE COUNT 1.35 K/ L 1.32-3.57 (BEAKER) (test code = 414) MONOCYTES ABSOLUTE COUNT (BEAKER) 0.84 K/ L 0.30-0.82 H (test code = 415) EOSINOPHILS ABSOLUTE COUNT 0.05 K/ L 0.04-0.54 (BEAKER) (test code = 416) BASOPHILS ABSOLUTE COUNT (BEAKER) 0.02 K/ L 0.01-0.08 (test code = 417) IMMATURE GRANULOCYTES-RELATIVE 1 % 0-1 PERCENT (BEAKER) (test code = 2801) Comprehensive metabolic [id number] 15:40:00 Test Item Value Reference Range Interpretation Comments Protein, Total (test 7.7 6.0- 8.3 gm/dL code = 2885-2) Albumin (test code = 3.7 g/dL 3.5-5 06155-5) Alkaline Phosphatase 99 U/L 40-150 (test code = 6768-6) Total Bilirubin (test 0.5 mg/dL 0.2-1.2 code = 1975-2) Sodium (test code = 134 meq/L 136-145 L 2951-2) Potassium (test code 3.0 meq/L 3.5-5.1 L = 2823-3) Chloride (test code = 90 meq/L 98-107 L 2075-0) CO2 (test code = 25 meq/L 22-29 8-9) BUN (test code = 16 mg/dL 7-21 3094-0) Creatinine (test code 1.01 mg/dL 0.57-1.25 = 2160-0) Glucose (test code = 72 mg/dL 70-105 2345-7) Calcium (test code = 9.8 mg/dL 8.4-10.2 94539-8) AST (test code = 15 U/L 5-34 1920-8) ALT (test code = 9 U/L 6-55 1742-6) EGFR (test code = [place] [address]-1) CLINICAL DATA T O CALCULATE ESTIMATED GFR. RAFAEL (test code = RAFAEL) Site Controller ID - DONIS C Lab Interpretation Abnormal (test code = 09358-4) [facility] [id number] 15:40:00 Test Item Value Reference Range Interpretation [...] 1092) DATA TO CALCULA TE ESTIMATED GFR. Site Controller ID - DONIS [id number] 15:27:00 Test Item Value Reference Range Interpretation Comments Lipase (test code = 107 U/L 8-78 H 3040-3) RAFAEL (test code = RAFAEL) Site Controller ID - DONIS C Lab Interpretation (test Abnormal code = 13190-8) [facility]LIPASE2020-[facility] 15:27:00 Test Item Value Reference Range Interpretation Comments LIPASE (BEAKER) (test code = 749) 107 U/L 8-78 H Site Controller ID - DONIS CPT/[id number] 15:21:00 Test Item Value Reference Range Interpretation Comments Protime (test code = 14.1 11.9- 14.2 5902-2) seconds INR (test code = 1.12 <=5.90 6301-6) PTT (test code = 39.8 22.5- 36.0 H 44995-7) seconds RAFAEL (test code = RAFAEL) Effective 2018: PT Reference Range ChangeNew: 11.9-14.2 Previous: 11.7-14.7 RECOMMENDED COUMADIN/WARFARIN INR THERAPY RANGESSTANDARD DOSE: 2.0-3.0 Includes: PROPHYLAXIS for venous thrombosis, systemic embolization; TREATMENT for venous thrombosis and/or pulmonary embolus.HIGH RISK: Target INR is 2.5-3.5 for patients wiht mechanical heart valves. Lab Interpretation Abnormal (test code = 38025-2) [facility] HospitalPT/[id number] 15:21:00 Test Item Value Reference Range Interpretation [...] is2.5-3.5 for patients wiht mechanical heart valves.CBC W/PLT COUNT & AUTO [id number] 15:16:00 Test Item Value Reference Range Interpretation [...] = 2801) CBC W/PLT COUNT & AUTO [id number] 08:52:00 Test Item Value Reference Range Interpretation [...] (BEAKER) (test code = 2801) BASIC METABOLIC [id number] 06:41:00 Test Item Value Reference Range Interpretation [...] ESTIMATED GFR. CBC W/PLT COUNT & AUTO [id number] 20:31:00 Test Item Value Reference Range Interpretation [...] = 2801) CBC W/PLT COUNT & AUTO [id number] 09:40:00 Test Item Value Reference Range Interpretation [...] (BEAKER) (test code = 2801) BASIC METABOLIC [id number] 06:50:00 Test Item Value Reference Range Interpretation [...] ESTIMATED GFR. CBC W/PLT COUNT & AUTO [id number] 23:23:00 Test Item Value Reference Range Interpretation [...] = 2801) CBC W/PLT COUNT & AUTO [id number] 10:14:00 Test Item Value Reference Range Interpretation [...] (BEAKER) (test code = 2801) BASIC METABOLIC [id number] 06:07:00 Test Item Value Reference Range Interpretation [...] m DATA TO CALCULA TE ESTIMATED GFR. [id number] 05:59:00 Test Item Value Reference Range Interpretation [...] Can do this with the next CBCPROTHROMBIN TIME/[id number] 05:10:00 Test Item Value Reference Range Interpretation [...] PERCENT (BEAKER) (test code = 2801) TROPONIN [id number] 17:24:00 Test Item Value Reference Range Interpretation [...] = 2801) CBC W/PLT COUNT & AUTO [id number] 10:51:00 Test Item Value Reference Range Interpretation [...] PERCENT (BEAKER) (test code = 2801) TISSUE [id number] 08:07:00Surgical Pathology Report Case: [id number] Authorizing Provider: Marilee Lane MD Collected: 06/27/2018 1124 Ordering Location: [place] [address] ICU Received: 06/27/2018 1528 Pathologist: Binu Magallon MD Specimen: Biopsy, Gastric, random gastric body and antrum PART A RANDOM GASTRIC BIOPSY:ANTRAL MUCOSA WITH FOCALLY ACTIVE CHRONIC GASTRITIS.OXYNTIC MUCOSA WITH MILD CHRONIC IN ACTIVE GASTRITIS.NEGATIVE FOR INTESTINAL METAPLASIA, DYSPLASIA, OR INVASIVE CARCINOMA.HELICOBACTER ORGANISMS ARE IDENTIFIED ON WARTHIN STARRY SPECIAL STAIN. Signing Pathologist Direct Phone Line: [phone] signed by Binu Magallon MD on 06/28/2018 at 8:07 [id number], [id number] and postop diagnosis: melenaBiopsy, gastric, random gastric [...] evaluated Immunohistochemistry technical testing was performed at [facility], Pathology Laboratory where it was developed and [...] Can do this with the next CBCPROTHROMBIN [id number] 04:34:00 Test Item Value Reference Range Interpretation Comments PROTIME (BEAKER) (test code = 14.2 seconds 11.7-14.7 759) INR (BEAKER) (test code = 370) 1.2 <=5.9 RECOMMENDED COUMADIN/WARFARIN INR THERAPY RANGESSTANDARD DOSE: 2.0 - 3.0 Includes: PROPHYLAXIS forvenous thrombosis, systemic embolization; TREATMENT for venous thrombosis and/or pulmonary embolus.HIGH RISK: Target INR is 2.5-3.5 for patients with mechanical heart valves.BASIC METABOLIC [id number] 04:29:00 Test Item Value Reference Range Interpretation [...] ESTIMATED GFR. CBC W/PLT COUNT & AUTO [id number] 23:50:00 Test Item Value Reference Range Interpretation [...] PERCENT (BEAKER) (test code = 2801) TROPONIN [id number] 14:18:00 Test Item Value Reference Range Interpretation [...] acidosis, acute neurological disease, and persistent tachyarrhythmia.RETICULOCYTE [id number] 03:26:00 Test Item Value Reference Range Interpretation Comments RETICULOCYTE COUNT PCT (BEAKER) (test 2.8 % 0.5-1.8 H code = 575) RAD, CHEST, 1 VIEW, NON [id number] 03:04:00Reason for exam:->gibShould this be performed at the bedside?->YesFINAL REPORT History: GI bleed. Comparison: None. Findings: A single view ofthe chest is submitted. The cardiomediastinal contours are unremarkable. The lung volumes are low. There is no focal consolidation, pneumothorax, large pleural effusion or evidence of overt pulmonary edema. There is no acute bony abnormality. Signed: Alejandrina Marrufo [facility] Verified Date/Time: 06/27/2018 03:04:43 Reading Location: [address] Reading [facility] 2018-06-27 02:57:00 Test Item Value [...] DATA T O CALCULATE ESTIM ATED GFR. [id number] 02:43:00 Test Item Value Reference Range Interpretation [...] 2.5-3.5 for patients with mechanical heart valves.PROTHROMBIN [id number] 02:42:00 Test Item Value Reference Range Interpretation Comments PROTIME (BEAKER) (test code = 15.1 seconds 11.7-14.7 H 759) INR (BEAKER) (test code = 370) 1.3 <=5.9 RECOMMENDED COUMADIN/WARFARIN INR THERAPY RANGESSTANDARD DOSE: 2.0 - 3.0 Includes: PROPHYLAXIS forvenous thrombosis, systemic embolization; TREATMENT for venous thrombosis and/or pulmonary embolus.HIGH RISK: Target INR is 2.5-3.5 for patients with mechanical heart valves.LACTIC ACID, [id number] 02:39:00 Test Item Value Reference Range Interpretation Comments LACTATE BLOOD VENOUS (2) (BEAKER) 0.9 mmol/L 0.5-2.2 (test code = 2872) CBC W/PLT COUNT & AUTO [id number] 02:25:00 Test Item Value Reference Range Interpretation [...] 417) IMMATURE GRANULOCYTES-RELATIVE 0 % 0-1 PERCENT (STEFANIE) (test code = 2801)
[2019-12-25] MEDS ORDERED: Ringers Lactate 1,000 ML IV ONE (12:15)
[2019-12-25] MEDS ORDERED: CEFAZOLIN/SWI 1gm 1 GM/10 ML SYR ONE (12:16)
[2019-12-25] MEDS ORDERED: HEPARIN 5000 UNIT/ML 1 ML VIAL ONE (13:15)
[2019-12-25] MEDS ORDERED: NS 0.9% VIAL 50 ML ONE (13:15)
[2019-12-25] MEDS ORDERED: BUPIVACA 0.25%/EPI 0.0005% MDV 50 ML VIAL ONE (13:15)
[2019-12-25] MEDS ORDERED: propofoL 200 MG/20 ML VIAL IV ONE (13:51)
[2019-12-25] MEDS ORDERED: FENTANYL CITR 100 MCG/2 ML ONE (13:51)
[2019-12-25] MEDS ORDERED: LIDOCAINE 1% MPF 5 ML VIAL ONE (13:51)
--- NOTE | 2019-12-25 16:05 | P.OP ---
Preoperative diagnosis: Need for Chemotherapy Postoperative diagnosis: Need for Chemotherapy Primary procedure: Placement of RIGHT subclavian Chemotherapy Port Anesthesia: GETA + Local Estimated blood loss: <20cc Specimen: none Findings: Difficulty advancing catheter into SVC Complications: None Implants: Port a cath Transferred to: Recovery Room Condition: Good
--- NOTE | 2019-12-25 16:36 | RAD REPORT ---
EXAM DESCRIPTION: RAD - Fluoroscopy >1 Hr - 12/25/2019 4:31 pm CLINICAL HISTORY: PORT A CATH COMPARISON: No comparisons FINDINGS: Fluoroscopy time 3.4 minutes.
--- NOTE | 2019-12-25 16:36 | RAD REPORT ---
EXAM DESCRIPTION: RAD - Chest Single View - 12/25/2019 4:31 pm CLINICAL HISTORY: S/P CHEMO PORT INSERTION Chest pain. COMPARISON: Chest Single View dated 09/22/2019; Chest Single View dated 06/26/2018; Chest Single View dated 07/18/2015; ABDOMEN 1 VIEW KUB dated 10/02/2012; Chest Abdomen Pelvis W Cont dated 12/19/2019; Ab domen Pelvis Wo Contrast dated 09/22/2019; Gastric Emptying Study dated 08/23/2019 FINDINGS: Portable technique limits examination quality. Right-sided venous catheter has tip in the SVC. No postprocedure pneumothorax. The heart is normal in size. No displaced fractures. IMPRESSION: No postprocedure pneumothorax.
[2019-12-25 17:09] VITALS: BP 157/80; TEMP 96.3; O2SAT 100
--- NOTE | 2019-12-25 18:34 | OP ---
Date of Procedure: 12/25/2019 Surgeon: Marisela Altamirano MD, Postoperative Diagnosis: Need for chemotherapy. Postoperative Diagnosis: Need for chemotherapy. Procedure Performed: Placement of right subclavian chemotherapy port using fluoroscopy and intraoper ative interpretation. Anesthesia: General endotracheal plus local with 0.5% Marcaine with epinephrine. Estimated Blood Loss: Less than 20 mL. Specimen: None. Findings: Difficulty advancing the catheter to the SVC. Please see description in the body of the o perative note. Complications: None. Implants: The Port-A-Cath. Disposition: The patient was transferred to recovery room in good condition. Procedure In Detail: After informed consent was obtained, the patient was brought to the operating r oom, prepped and draped in the usual sterile fashion after adequate anesthesia achieved. The patient was placed in steep Trendelenburg position. Using ultrasound guidance, I evaluated the internal jug ular vein on the right and found to be somewhat diminutive at this time and as such, I opted for a young bclavian approach. I then at this time used the 0.5% Marcaine to anesthetize the subclavian tract ne ar the deltopectoral groove and anesthetized the tract. I then used the microintroducer needle to ca nnulate the subclavian vein on the first attempt. Dark red, nonpulsatile blood was returned. The mi crowire was advanced at this point and the needle removed. Fluoroscopy confirmed position of the naseem rowire in the SVC without evidence of complication. The wire was quite easy to pass at this point. I then made a small carter incision using 11 blade down over the insertion point and placed the microin troducer sheath over the wire. Using Seldinger technique, the microwire was removed at this point an d wire out called and the standard wire was then advanced through the introducer sheath after removin g the inner cannula. At this point, fluoroscopy confirmed once again the position of the standard wi re in the SVC without evidence of complication. The wire passed quite easily. At this point, I crea marisela a separate incision on the chest wall for future placement of the Port-A-Cath. At this point, I used the tunneling device and sized the catheter appropriately to be approximately 15-16 cm in length . I then brought it through the tunneling port and placed it in a locked position at this point. At this point, I opted to place the introducer sheath using Seldinger technique over the wire and the s ally was introduced without evidence of complication and fluoroscopy confirmed position going toward s the SVC. At this point, the wire out was called. The introducer and inner cannula were removed an d the catheter was then placed into this area. There was some resistance, however, after placing the catheter beyond the hub of the sheath. Fluoroscopy confirmed that the catheter capped and attemptin g to go up as it was hitting a vascular web. For whatever reason, it kept coiling back up into the j ugular vein. Multiple attempts at pulling the catheter sheath out to attempt reconnect reattempts we re unsuccessful and the standard wire was too short and as such, a Glidewire was brought up. The Gli dewire was brought and hydrated appropriately and passed through the introducer sheath after removing the catheter. At this point, using fluoroscopy, the placement of the guidewire was confirmed at thi s point and using Seldinger technique, I then placed the catheter over the wire after hydrating it ap propriately and introduced the catheter into the subclavian position by using gentle torquing to posi tion the catheter down to the SVC. This was done quite easily at this point and the catheter was loc ked into position at this point. The wire was then removed. Once again, the Glidewire was placed on the back table and the catheter being clamped was then attached to the port device. Fluoroscopy con firmed position at the confluence of the SVC and flushed quite easily at this point. The catheter wa s flushed prior to insertion and did draw blood back initially, but the position was confirmed with f luoroscopy and I flushed the catheter initially with saline and then heparin super flush solution was used for approximately 3 cc to pack the catheter at this point. I then cleaned the area in the inci gali area and the insertion site with sterile saline and dried this. The Port-A-Cath was then secure d after locking the hub to the port itself, securing the catheter was locked in this position once ag steve and I secured the catheter to the chest wall, used super flush another 1 cc at this point and it flushed quite easily at this point. The catheter was secured to the chest wall using 3 Prolene 2-0 s utures and the skin was once again irrigated along with the wound. A single interrupted 2-0 nylon young ture was used to close the insertion site and the deep dermal plane was closed over the catheter port site using a 3-0 Vicryl suture in an interrupted fashion. The skin was then closed using a 4-0 [place] cryl in a running fashion. Dermabond placed over top. The patient tolerated the procedure well with out evidence of complication at this point, was transferred back in good condition. A followup chest x-ray will be performed PACU to confirm position and to ensure no pneumothoraces throughout the proc edure. The patient tolerated the procedure well without evidence of complication otherwise and trans ferred to PACU in good condition. All counts were correct at the end of the case. JUAN DANIEL/STEVEN Voice ID: [id number] Report ID: [id number]
== END 2019-12-25 17:11 | disposition home or self-care (01) ==
LOC: OR 11:37
PROVIDERS: ATTEND Surgery
PROC: 0JH60WZ Insertion of Totally Implantable Vascular Access Device into Chest Subcutaneous Tissue and Fascia, Open Approach (ICD-10-PCS; principal; 2019-12-25 13:00)
DX: C80.1 Malignant (primary) neoplasm, unspecified (principal); C79.9 Secondary malignant neoplasm of unspecified site; I10 Essential (primary) hypertension; I25.10 Atherosclerotic heart disease of native coronary artery without angina pectoris; I25.2 Old myocardial infarction; K21.9 Gastro-esophageal reflux disease without esophagitis; Z72.0 Tobacco use; Z95.5 Presence of coronary angioplasty implant and graft; Z20.828 Contact with and (suspected) exposure to other viral communicable diseases
CPT/HCPCS: 36561; 71045; U0002; J2704; J1644 ×2; J3010; J0690; J7120; C1788

== ENCOUNTER 2020-08-17 14:41 | Inpatient (IN) | payer OTHER ==
--- OUTSIDE RECORDS SUMMARY | 2020-08-17 14:47 | XMS REPORT | Continuity of Care Document ---
:1955 Author Organization [facility] t Address [address] [place] [address] Dr. Taylor. [address] [place] [address] Care Team Providers Name Role Phone Pcp MD, No Primary Care Physician Unavailable Ivan Miranda MD Attending Clinician [phone] Cy Mckeon MD Attending Clinician Liat Burden MD Attending Clinician Merchant HUGHES Attending Clinician Ana María Aguilera MD Attending Clinician Feliciano Garces MD Attending Clinician Bhavik HUGHES Attending Clinician LIAT BURDEN Attending Clinician Unavailable Cy Mckeon MD Attending Clinician Vernon Mcduffie MD Attending Clinician Jian HUGHES Attending Clinician Shorty Cruz MD Attending Clinician Elana NORTH Attending Clinician Ariana HUGHES Attending Clinician Lucius Trimble MD Attending Clinician Ana Cuenca MD Attending Clinician Mary Anne HUGHES Attending Clinician MARY ANNE Attending Clinician Unavailable RASHEED FRANCO Attending Clinician Unavailable FELICIANO GARCES Admitting Clinician Unavailable RASHEED FRANCO Admitting Clinician Unavailable Payers Payer Name Policy Type Policy Effective Date Expiration Date Joe Number YESICAETTERAMALYSON [id number] [facility] [id number] 00:00:00 - Medical /2020-Present Center Problems Condition Condition Condition Status Onset Resolution [...] 00:00: Medical involving involving 00 Cent er huslia huslia 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 [...] GIB Disease Active [facility] (gastroint [facility]-23 Selina kes - estinal estinal 00:00: Medical bleeding) bleeding) 00 Cent er Coronary Coronary Disease Active [facility] artery artery 5[facility]23 [facility] - disease disease 00:00: Medical involving involving 00 Cent er huslia huslia coronary coronary artery of artery of huslia huslia heart heart without without angina angina pectoris pectoris Chest pain Chest pain Disease Active C [facility] with high with high 6-13 [facility] - risk for risk for 00:00: Medica l cardiac cardiac 00 Center etiology etiology Acute Acute Disease Resolve 2019-10-08 2019-10-[address] blood loss blood loss d 8-20 00:00:00 08:05:38 [facility] - anemia anemia 00:00: Medical 00 Center Allergies, Adverse Reactions, Alerts This patient has no known allergies or adverse reactions. Family History Family Member Diagnosis Comments Start Date Stop Date Source Natural father Heart disease [facility] Natural mother Diabetes [facility] Natural mother Hypertension [facility] Social History Social Habit Start Date Stop Date Quantity Comments Source Sex Assigned At [facility] Tobacco use and 2019-10-01 2019-10-[address] [facility] Sarah horta - exposure 00:00:00 00:00:00 Medical Center Alcohol intake 2019-10-01 2019-10-01 Current drinker BARBARA Castellano - 00:00:00 00:00:00 of alcohol Medical Center (finding) Tobacco Comment 2018-06-28 2018-06-[address] [facility] Sarah [facility] - 00:00:00 00:00:00 (SMOKED FOR [address] [id number] - [id number]) Alcohol Comment 2018-06-28 2018-06-[address] [facility] - 00:00[facility]00 [facility] Smoking Status Start Date Stop Date Source Former smoker 2019-10-01 00:00:00 2019-10-01 00:00:[address] [facility] Medications Ordered Filled Start Stop Current Ordering Indication Dosage Frequency Signature Comments Components Source Medication Medication Date Date Medication? Clinician (SIG) Name Name ezetimibe Yes 10mg QD Take [address] (ZETIA) 10 10-07 by mouth [facility] - mg tablet 11:34: daily. Medica l [address] [place] niacin Yes 500mg Take [address] (SLO-NIACIN - mg by [facility] - ) 500 mg [...] mouth [facility] - MG tablet 11:34: nightly. [facility] katie [address] [place] [address] traMADoL 2020- No 50mg Take [address] 100 mg Tab 10-07 by mouth Luke s - 00:00: 23:59 every 6 Medical 00 :00 (six) Center hours as needed for up to 10 days. Max Daily Amount: 200 mg traMADoL 2020- No 50mg Take [address] 100 mg Tab 10-07 by mouth Luke s - 00:00: 00:00 every 6 Medical 00 :00 (six) Center hours as needed for up to 10 days. Max Daily Amount: 200 mg traMADoL 2020- No 50mg Take [address] 100 mg Tab 10-07 by mouth Luke s - 00:00: 00:00 every 6 Medical 00 :00 (six) Center hours as needed for up to 10 days. Max Daily Amount: 200 mg aspirin 81 2019- 2020- No thrombosis 81mg QD Take [address] MG EC 09-15 prevention by mouth Dorcas es - tablet 13:56: 00:00 after PCI daily. Med ical 53 :00 Center sucralfate 2020- No 1g Q.25D Take 10 CH I [...] 6 (six) hours for 7 days. promethazin 2019- Yes TAKE ONE [facility] e 09-10 (1) TO TWO [facility] - (PHENERGAN) 00:00: (2) Medica l 25 MG 00 TABLET(S) Center tablet BY MOUTH EVERY FOUR TO SIX HOURS NEEDED. erythromyci 2019- Yes TAKE [facility] base 7-28 [...] 00 :00 by mouth Center nightly. pantoprazol 2020- No 40mg Take [address] e 6 08-11 by mouth. [facility] - (PROTONIX) 00:00: 00:00 Medica l 40 MG 00 :00 Center tablet Immunizations Ordered Immunization Filled Immunization Date Status Commen ts Source Name Name Covid-19 Vaccine 2020-04-22 Completed [facility] - Mrna (Pf) 00:00:00 [facility] (Pfizer/biontech) Covid-19 Vaccine 2020-04-01 Completed [facility] - Mrna (Pf) 00:00:00 [facility] (Pfizer/biontech) Vital Signs Vital Name Observation Time Observation Value Comments Source Systolic blood 2019-10-08 10:57:00 119 mm[Hg] [facility] Diastolic blood 2019-10-08 10:57:00 62 mm[Hg] [facility] Heart rate 2019-10-08 10:57:00 55 /min [facility] Body temperature 2019-10-08 10:57:00 36.89 Nidia [facility] Respiratory rate 2019-10-08 10:57:00 18 /min [facility] Oxygen saturation in 2019-10-08 10:57:00 100 /min [facility] Arterial blood by Medical Ce nter Pulse oximetry Body weight 2019-09-25 05:00:[address] [facility] BMI 2019-09-25 05:00:00 23.19 kg/m2 [facility] Body height 2019-09-23 03:44:[address] [facility] Procedures Procedure Date / Time Performing Clinician Source Performed REPORT OF PROCEDURE - 2019-10-10 07:40:50 Provider, Default [facility] ENDOSCOPY SCAN Scanning [facility] RHYTHM STRIP - SCAN 2019-10-10 07:40:48 Provider, Default [facility] POCT-GLUCOSE METER 2019-10-08 10:59:00 [facility] SARS-COV2/RT-PCR ([facility] & 2019-10-08 08:53:00 Lindsey Owens [facility] - REF LABS) [facility] POCT-GLUCOSE METER 2019-10-08 07:13:00 Elías Gutierres [facility] BASIC METABOLIC PANEL (7) 2019-10-08 03:40:00 NathalieCaitlynew ROBINA [facility] MAGNESIUM 2019-10-08 03:40:00 Cisco Zelaya [facility] PHOSPHORUS 2019-10-08 03:40:00 Cisco Zelaya [facility] POCT-GLUCOSE METER 2019-10-07 22:15:[address] [facility] POCT-GLUCOSE METER 2019-10-07 15:20:[address] [facility] POCT-GLUCOSE METER 2019-10-07 12:45:[address] [facility] POCT-GLUCOSE METER 2019-10-07 07:24:[address] [facility] CBC (HEMOGRAM ONLY) 2019-10-07 03:37:[address] [facility] BASIC METABOLIC PANEL (7) 2019-10-07 03:37:00 Cisco Zelaya [facility] MAGNESIUM 2019-10-07 03:37:00 Cisco Zelaya [facility] PHOSPHORUS 2019-10-07 03:37:00 Cisco Zelaya [facility] POCT-GLUCOSE METER 2019-10-06 22:14:[address] [facility] POCT-GLUCOSE METER 2019-10-06 14:47:[address] [facility] POCT-GLUCOSE METER 2019-10-06 10:57[facility] 2019-10-06 06:55:[address] [facility] CBC (HEMOGRAM ONLY) 2019-10-06 03:29:[address] [facility] BASIC METABOLIC PANEL (7) 2019-10-06 03:29:00 Cisco Zelaya [facility] MAGNESIUM 2019-10-06 03:29:00 Cisco Zelaya [facility] PHOSPHORUS 2019-10-06 03:29:00 Cisco Zelaya [facility] POCT-GLUCOSE METER 2019-10-05 21:33:[address] [facility] POCT-GLUCOSE METER 2019-10-05 15:10:[address] POCT-GLUCOSE METER 2019-10-05 11:18:[address] [facility] POCT-GLUCOSE METER 2019-10-05 07:27:[address] CBC (HEMOGRAM ONLY) 2019-10-05 03:54:[address] [facility] BASIC METABOLIC PANEL (7) 2019-10-05 03:54:00 Cisco Zelaya [facility] MAGNESIUM 2019-10-05 03:54:00 Cisco Zelaya [facility] PHOSPHORUS 2019-10-05 03:54:00 Cisco Zelaya [facility] POCT-GLUCOSE METER 2019-10-04 21:23:[address] POCT-GLUCOSE METER 2019-10-04 15:20:00 [facility] POCT-GLUCOSE METER 2019-10-04 11:38:[address] [facility] POCT-GLUCOSE METER 2019-10-04 07:33:[address] [facility] CBC (HEMOGRAM ONLY) 2019-10-04 04:07:[address] [facility] BASIC METABOLIC PANEL (7) 2019-10-04 04:07:00 Cisco Zelaya [facility] MAGNESIUM 2019-10-04 04:07:00 Cisco Zelaya [facility] PHOSPHORUS 2019-10-04 04:07:00 Cisco Zelaya [facility] POCT-GLUCOSE METER 2019-10-03 21:05:[address] [facility] POCT-GLUCOSE METER 2019-10-03 16:01:[address] [facility] POCT-GLUCOSE METER 2019-10-03 12:22:00 [facility] XR ABDOMEN / KUB 1 VIEW 2019-10-03 08:51:00 Cisco Zelaya [facility] POCT-GLUCOSE METER 2019-10-03 07:22:[address] [facility] CBC (HEMOGRAM ONLY) 2019-10-03 03:40:[address] [facility] BASIC METABOLIC PANEL (7) 2019-10-03 03:40:00 Cisco Zelaya [facility] MAGNESIUM 2019-10-03 03:40:00 Cisco Zelaya [facility] PHOSPHORUS 2019-10-03 03:40:00 Cisco Zelaya [facility] POCT-GLUCOSE METER 2019-10-02 20:41:[address] [facility] TRANSFUSION SERVICE REPORT 2019-10-02 18:01:02 Provider, [facility] POCT-GLUCOSE METER 2019-10-02 15:57:[address] [facility] INTRAOPERATIVE PATH REPORT 2019-10-02 15:11:56 Provider, [facility] SCAN [facility] PULMONARY FUNCTION - SCAN 2019-10-02 11:30:22 Provider, [facility] CBC (HEMOGRAM ONLY) 2019-10-02 03:43:00 Yanoff, [facility] BASIC METABOLIC PANEL (7) 2019-10-02 03:42:00 Nathalie [facility] MAGNESIUM 2019-10-02 03:42:00 Nathalie [facility] PHOSPHORUS 2019-10-02 03:42:00 Nathalie [facility] HEPATIC FUNCTION PANEL 2019-10-02 03:42:00 Nathalie [facility] POCT-GLUCOSE METER 2019-10-01 22:29:00 Marlon Garces [facility] BLOOD GAS, ARTERIAL 2019-10-01 09:50:34 [facility] GLUCOSE-STAT LAB 2019-10-01 09:50:34 [facility] HGB/HCT (H&H) - STAT LAB 2019-10-01 09:50:34 [facility] CALCIUM, IONIZED 2019-10-01 09:50:34 [facility] PH, ARTERIAL 2019-10-01 09:50:34 [facility] FUNGUS CULTURE + SMEAR 2019-10-01 09:19:09 Cy Mckeon [facility] ANAEROBIC CULTURE 2019-10-01 09:19:09 Cy Mckeon [facility] SURGICALLY OBTAINED CULTURE 2019-10-01 09:19:09 Bobby Quiros [facility] - + GRAM STAIN [facility] ANESTHESIA SPINAL BLOCK 2019-10-01 08:38:58 [facility] TISSUE EXAM 2019-10-01 08:34:44 Cy Mckeon [facility] PREPARE RBC 2019-10-01 07:40:00 Cy Mckeon [facility] WHIPPLE 2019-10-01 07:15:00 Cy Mckeon [facility] CBC W/PLT+MANUAL DIFF 2019-10-01 04:47:00 Den, Kimmy Marti [facility] BASIC METABOLIC PANEL (7) 2019-10-01 04:47:00 [facility] PANEL 2019-10-01 04:47:00 Den, Kimmy Marti [facility] MAGNESIUM 2019-10-01 04:47:00 Den, Kimmy Marti [facility] PHOSPHORUS 2019-10-01 04:47:00 [facility] AND SCREEN, AUTOMATED 2019-10-01 04:47:00 Den[facility] CBC WITH PLATELET COUNT + 2019-10-01 04:47:00 Den, [facility] MANUAL DIFF [facility] (CELLAVISION MANUAL DIFF) 2019-10-01 04:47:00 Den, [facility] CBC W/PLT COUNT & AUTO 2019-09-30 18:00:00 Sarai Aguilera [facility] BASIC METABOLIC PANEL (7) 2019-09-30 17:59:00 Sam Aguilera i [facility] DLCO (SINGLE BREATH 2019-09-30 14:22:00 Andrew Burnette [facility] - DIFFUSION) [facility] LUNG VOLUMES 2019-09-30 14:22:00 Andrew Burnette [facility] SPIROMETRY 2019-09-30 14:22:00 [facility]a [facility] SARS-COV2/RT-PCR ([facility] & 2019-09-30 09:19:00 Rosalina Purcell [facility] - REF LABS) [facility] REPORT OF PROCEDURE - 2019-09-29 11:43:09 Ariana [facility] ENDOSCOPY [facility] TISSUE EXAM 2019-09-29 11:20:00 Ariana [facility] COLONOSCOPY,BIOPSY 2019-09-29 10:40:00 Ariana [facility] SARS-COV2/RT-PCR ([facility] & 2019-09-28 17:39:00 SophiaIssac Carlyalexandru fam [facility] - REF LABS) [facility] ELECTROLYTE PANEL 2019-09-28 11:30:00 Sarai Aguilera [facility] BASIC METABOLIC PANEL (7) 2019-09-27 12:47:00 Sam Aguilera i [facility] CBC W/PLT COUNT & AUTO 2019-09-27 09:39:00 Sarai Aguilera [facility] CT CHEST WITH IV CONTRAST 2019-09-26 21:45:[address] [facility] CT ABDOMEN/PELVIS WITH & 2019-09-26 21:45:00 Cisco Zelaya [facility] - WITHOUT IV CONTRAST [facility] er POTASSIUM 2019-09-26 13:55:00 Sarai Aguilera [facility] TREADMILL 2019-09-26 11:50:31 Unknown, Hl7 [facility] - TOLERANCE(NON-NUCLEAR Medical Ce nter TREADMILL) ECG 12-LEAD 2019-09-26 11:47:29 Unknown, Hl7 [facility] NM MYOCARDIAL PERFUSION 2019-09-26 11:42:00 Adriel Lamb [facility] - PET/CT (REST & STRESS) [facility] enter 2D ECHO W/ DOPPLER 2019-09-26 09:57:36 Adriel Lamb [facility] - (CW/PW/COLOR) [facility] CARCINOEMBRYONIC ANTIGEN 2019-09-25 17:54:00 Kimmy Molina [facility] (CEA) [facility] CARBOHYDRATE ANTIGEN 19-9 2019-09-25 16:13:00 Sam Aguilera i [facility] (CA 19-9) [facility] CT ABDOMEN/PELVIS WITH IV 2019-09-25 09:43:00 Vandana Cuenca [facility] BASIC METABOLIC PANEL (7) 2019-09-25 05:07:00 Cary Burden [facility] MAGNESIUM 2019-09-25 05:07:00 AltaCary melchor [facility] CBC W/PLT COUNT & AUTO 2019-09-25 05:07:00 Cary Burden [facility] REPORT OF PROCEDURE - 2019-09-24 13:33:12 Sheikh [facility] 2019-09-24 13:15:00 Sheikh [facility] UPPER ENDOSCOPY 2019-09-24 12:30:00 Sheikh [facility] ENTEROSCOPY,BIOPSY 2019-09-24 12:30:00 Sheikh [facility] POTASSIUM 2019-09-24 11:06:00 [facility] BASIC METABOLIC PANEL (7) 2019-09-24 04:51:00 AltaCary melchor [facility] MAGNESIUM 2019-09-24 04:51:00 [facility] W/[facility]T COUNT & AUTO 2019-09-24 04:51:00 AltaCary melchor [facility] FERRITIN 2019-09-23 14:56:00 Sen, [facility] IRON, TIBC, % SAT. (WITHOUT 2019-09-23 14:56:00 [facility] - FERRITIN) [facility] SARS-COV2/RT-PCR ([facility] & 2019-09-23 12:19:00 [facility] - REF LABS) [facility] BASIC METABOLIC PANEL (7) 2019-09-23 05:35:00 Alta [facility] MAGNESIUM 2019-09-23 05:35:00 Alta, [facility] LIPID PANEL 2019-09-23 05:35:00 Alta, [facility] CBC W/PLT COUNT & AUTO 2019-09-23 05:35:00 Cary Burden [facility] - DIFFERENTIAL [facility] TROPONIN I 2019-09-23 05:35:00 Cary Burden [facility] CBC W/PLT COUNT & AUTO 2019-09-16 14:32:00 [facility] PT/APTT 2019-09-16 14:32:00 [facility] LIPASE 2019-09-16 14:32:00 [facility] COMPREHENSIVE METABOLIC 2019-09-16 14:32:00 [facility] PANEL [facility] Plan of Care Planned Activity Planned Date Details Comments Source Future Scheduled 2029-09-[address] [facility] - Test 00:00[facility]00 [facility] colon (procedure) [code = 352024520] Future Scheduled 2022-09-[address] [facility] - Test 00:00:00 (procedure) [code = Medical Center [id number]] Future Scheduled 2020-10-06 INFLUENZA VACCINE (#1) [facility] Test 00:00:00 [code = INFLUENZA Medical Ce nter VACCINE (#1)] Future Scheduled 2020-02-[address] [facility] - Test 00:00:00 (12+) [code = Medical Center DEPRESSION SCREENING (12+)] Future Scheduled 2006 SHINGLES VACCINES ([address] [facility] - Test 00:00:00 of 2) [code = SHINGLES Medic al Center VACCINES (1 of 2)] Future Scheduled 1975-07-04 DTAP/TDAP/TD VACCINES [facility] - Test 00:00:00 (1 - Tdap) [code = Medical C enter DTAP/TDAP/TD VACCINES (1 - Tdap)] Future Scheduled 1974 HEPATITIS C [facility]CRE[facility]ING [facility] - Test 00:00:00 [code = HEPATITIS C Medical Center SCREENING] Future Scheduled [address] [facility] - Test 00:00:00 0-64 YRS (1 of 1 - Medical C enter PPSV23) [code = PNEUMOCOCCAL VACCINE 0-64 YRS (1 of 1 - PPSV23)] Encounters Start End Encounter Admission Attending Care Care Encounter Source Date/Time Date/Time Type Type Clinicians Facility Department ID 2019-12-19 2019-12-19 Office MILTON Quiros [id number] 15:36:52 16:07:07 Visit Lv Tinajero [id number] 2019-10-22 2019-10-22 Office MILTON Quiros [id number] 15:52:30 16:30:52 Visit Lv Tinajero [id number] Results Test Description Test Time Test Comments Results Result Comments Source Tissue Exam 2019-12-23 16:05:00 Test Item Value Reference Range Interpretation Comme nts Case Report (test code = 104) Surgical Pathology Report Case: [id number] Authorizing Provider: Lv Quiros II, MD Collected: 10/01/2019 08:34 AM Ordering Location: [facility] PERIOPERATIVE Received: 10/01/2019 08:38 AM SERVICES Pathologist: Ronnie Pope MD Specimens: A) - Liver, right hepatic lobe wedge resection B) - Gallbladder ADDENDUM (test code = 3381) w5yiyVUzXGVnlRP5CnJvGHXqi8tku0BsmIIyyBJ lBFubhMEbscYeng82qTM5vX94UH1bCZWrDjM9FX CcxzS6Eqt6ZDIdDQGcmJAoE968m6bnw3dqmfUub XB9kZezWQInDFWxDCinMYWbSoYyKFmdZBZeSEQt FDHvLTzeRCAhpV4wFAxfc6YpJUD6egYfLCIqrpA wlKpaYLIhu3GmnFKrc8HlpZ5bjD0xxEgsoU1tbM HygUE1etspCHtDUtqjjEImtCmsHgSym4VrZUatz XM9E7clSbNiWTgxSUgVRDFzKKKqf4LooO4zHJG7 eOmshPJjDGWgTvSwdvLxMVKst1KwSRSap87nzHy nrnXuUE9gHOGmHTNsmJnrULAdnBRcg0Tiu8JidV cmFPY2rSVsTYxjIyFplXdagFQsLP8oZOOuQYCtj OHwwz9icADjsdAmJJnuwqC4ygVlLJ3mVIQvDZNj ksNgVZekKUEuTUeCKDPzu3AwvqfoKv0pLNEdiYC oe0VyVV7XToNcbj48KHydjqR2CBJlnOUsOw4ktR YmIB1bDSMtvOIysNBqOHDhm6PqYSgslUswWEBev o6inakmcVGoA49ooFCbsACfJXXzpxmlBWWbGOsJ BZosFR44DFK3RN33N6qkVMSzYLfpyxRxj3kpkto vJYCuHEQBBjnhGW40ZBI1AU38G4wiMCOjOYimoa Fto6eipvznJCRtCCOBKzmiLS47QQD1NX46F3hfL PBhNTywlrKdu4amgagdVFPyMT1JUofwUZ35TDJ7 VD18N7wnXMGxFZhcnyYou7zxxdsaTRYjrOXcPGy EAlFXzrHrmcIoIJMggLktqaveXa9iiA3kayWdRd QxzLIzHHUdEVT2hJJht1Rpd45yj1TrXC6JBGMny 7TfsW5sPuMiv4vhtZUzRdTveBracAnle0JmuEsm wz6pQAGzaKjlxRDvkT0lrZUakVmdtRywpImasEG cJHTDRRsnTiHtLAuslrRxDPStPXT9C2LinPadnm ZkbI5wpKmjIDNlb2AjUNqGHhZtrrAwlxLgVBBfn Jeyja0nIUrsd6UaerJhfFk3yeTkpQ25kYTbas99 JEWnXMCdtzMoXTOeNBIerJ2ihQLrpII9sD4pOYX odzAqZ0apchguCRtjM15crlJzTARud83kx6r3kG GhTL1nwDaxKFQpvH3zRMnrengkwYD7VADyINAhd qFcQHQgMGFjsN0gBJNaVWOfCLTwOHKlHYOzKBQz xbPuELEsfUupWHV2DBS0jN6vUwRxdHFtDOQkxlR ZaS90ox1ltJD7p5EsED1bk4LwqQEmcLCbbCKhtZ DfRukqPARmNSqeXKgqnJPvu4kai6LtP1rezJhhh KT0UZJwn3Dpe2XqPRUktrTlj1ZkGEDcwuLgbZTe ZVHwquPvnk9mrwIzFTCwKNCaF8HzmfiwuDpcnnG hBHKjlw2fhxQsZPV9XQTDESARhY0yMDDaTMsuXZ beALr2vNGQkQL4OC7mAWZvvFjheM0ofJRWQSSru oR2x1G1LtGJlVBeHSAnqc69CXQhUK9aM6mdGCNz KLIwyzEuaTGny5FmWPQbmAM2rWUsRO2FLcFIt19 uOFFzOASCcdUoFSQfkHokmCL7pbD6mI2iUnFTbC MjWkTMKXtwymZhEGUnim1oxcCaQWDeODZoc8Dji WPedMMqnuEfT5Ako6XjRPDolo56KPqhzDXwak00 HP1bC9Xai5TxjB8wHOurLUCzx2GxwOKbfIFmBXZ bm9XyZ4xcubioGDnmyJQvnQ4iMMFqTBj2SFDvw6 UtRXZjm9NpFmCaryJiRBPuEBPePWVpiR10PKP9c OjniYmpkzOuEO3wMEEszkKqBRCkUYOgpQ6pOKvy ddSuYHWdwmC0f1L0PEazCQLshyPiPtzfSEU8tvU lcvK9sECsK9bwkjzwBXkiZVOqm9MavV3dhZDXxL Aer8VrsEJqbJGFySFqLN7tszSbAK9lJTX4PLitE BKLWRBgGYudQGPmBLQ0OUuuOtjoZEQ2jzVcLRSb i5LoAKwcD0mnM29btEcijRb6pBZpiNvahZYysHA rQLFgayB7n5V9FBRzn2UnideiPMAybcshZMAuSG q2GqKzOIW4ORB7IEI9E9wjAKDqgSEubJ== DIAGNOSIS (test code = 3220) v4bflGMqJZTos8laIOMryIYlYzRbAeMlWoExUn p lsOMiYTbvkiKmUHxog0AeF5BlWdKiQOxuthUzLG ZyEcedirexWIKnVUP9spFoWHVqSPoiULSvXVajB f0gaTXuuDsjYtBaHNZdt5rsovDPoabrnOu6l8pi UHQkGnI5iVOcKWbtY9msfhZhjFYdEVUnRXq6eX7 8WIMjcK7fmSXcJJsdqnVmDyR7AIrkSWIaEwH7QO VzhLDoGMOgB8amBEVvTDbfWNTmPDsjaBZiOEK4k Fgjj7J1zJBqkVYizUefHyFvIaXyKUPRb4LcJCs7 wMxuM3WvQEEbLpC5yJWvIKOsLAkoXCMxJPFcplZ 7fD02PUnvxcQ5pNTzr2Rcx79zr793rN4yqSHxLZ G6XRUyJTJvqBAsFYGnDSD9ISFdhHZdT0w4NtEav JVtJ8G5QaMaxSLtL5T1TjXakIPkD0O3NhPvlNXk UFUxhOJaDt2joAOfrMTwyo0bts32ONH4l8SxdMg oKPS3DPC5EyOcBs4iwLAjLSIqQR8tEvYhcEYsTJ Ftdp41dAisNHebvyXzwK7iCaGnIMKtxIOuROTkN M3sySTiOUTodC4unejdCTSbCdAkmqhrYLVunLzw wmZvUf6dpMlrXDK8EQvuM3ehdO1hMkH9RKliT1p zkL4jHTm5EGycaGI1NDZyjZ6aLQ3qyyuou2bvOe LaRM6hwuhkr9mlKeZeTB9cvmg2h8yxGcRmDN5eq bxvi2oeNjEpCBgkIFGfuqcnATJro3YseokkWSNj v7BsG3QudPbaD89xvUhiW36qWLBujJsecC6xvAx meN3aEmZrSmIoHDqitLnblQKturcbKZjdqrEfZU brmmmgKJMfRIwpQ8lbXtQhHUNpkJhkYSeep6GlA EHlVLOpUtIhYJ2lTXqJIHEuJUQVR0aLBEoHIzBp R9JOM0EvAfKTFVCEJG9VQzgzEVPdMENlUTAFL9v KBWARRZTDCbUCABAEE2TRHTkQAFWQWC2PV8FMZ5 tUY28VZGTWH2LBPlQOIAgNEOXAEqOMOoRNUJaIP EVELlxwYXJccGFyIEIuIEdBTExCTEFEREVSLCBD IM4RUCKRE6VIW5BZNUy4UHJyhoYyHY9hAKuFEJL BCCWDRlySKNKUO6bBG5fDGChOYQCitiPwUL3bD5 lFSONJVAKWZ5zUX8hPXJZbgkCrVC4sO06FDZuHG KFJAT3XJJRgEQ3CMCYVOiOiYj8GOR8LUKUCTAZQ ONCxNNDMQd8TFTQSKH6UEMPeISDqGKeveUTnhRb qtcMgQKwhs6OkQCsoVTVvNR3qrCmtOWHlIQ4yHO LyH1vzsB0uiwq0CdWhVHTpTxQ0SSPoquJ0Byo2M ERgCTjip3ovu7FaRDKvTIe4wVnsDnXqGEDbm8ml fvHhGkQqWOCoYCPxJCGtjKNgX316j8qco0vfsoW fgNO5GYTtELZ1SBlmdeQfzaH4JAwayEYuCdG7GM dubqWoHFzucaNsnnUsBxw2QPTkP830XLV8eGczs 9hcNXW8RGNaACMoCiLcCd0pvHIvR307WKGpRTAL AEAcvGc5PFAlnxLfjlJbyQNIj972P906k2wuRXB ywkWnqRmCgfmqo8bxP281ZTKynSIqfeLgOqDkPS MmzGFbnJG1LNSmDV3uazctBPpgFHbbNQYcrrE1F ILcqEXlP8VkMTAxYP1udisiRJI7VUeyWWJtCVW9 PtUnYGIze6Penzz0BnFfvv8gxb86CMW2c8OrmZx rPBS2NYJ8VcDyGp4duSSxLGFuYR4ySfEzsNGnDA Nbuw98kNnhMVvsVAJ5OASmsvZrh5Tkl2coLrPta gIiR1ajN0ObAEDdFVYzVVNxCrIeylFxm5Qyf3Kb sJKvaEy2b5guTBWbCHUirNmgv2vmEWH5QSRhcIS iP2gkzO8iITGpYZ1vqbtxg0byTFpbLJqkTCOjdI Q1uyF7TWPwlYDiL3ZdwV0xMBZtYZdmYNFxvbd2Q xTzOk0jxABtiAyxMZrpJuypYBjsXIUcxgMszhZi cGduZGVjXHBsYWluXHBsYWluXGYwXGZzMjRccWx cbGFuZzEwMzNcaGljaFxmMVxkYmNoXGYxXGxvY2 orMoRgXeWrCrg4KCZczPArGOQwGmp4NSZnkMWgE HPQgWiunH3zNNVloMwvhK5ltAX8QCXnvkQupTWH iU3sVRDVgI4hXlE8DeOeAxI9JYG0ENSqkUCddK7 = CPT Code(s) (test code = 3357) z2cihNZcWTZucNGbOiCxVCTiEMTkt0lxCTOm bGF pLyYzQgHuCgGgFbugtVSkUWZpQnGiw1csh580aJ Cmy4umPJOvWoO8xUGoAPTcvAFlX530a1oml1ndi aJltRP1PYLyLDG7OQlmvxCnivM2IAffwDJzFrX2 CHitifAvMIwkunOusoSsEef7WKXdF179PLB9vYz vu8wkDON1EDQqYYMjXmTvSc7vgFFzW653SUHjIJ SUQBNrxXx6UXJbuvTmshEgkMYSl928J104s8ewV MFhhmIfaPoNfkklf3twJ627LXMlbWDkajGlJwWr NLOtkMIuoLN2KNKuQH4aynziNbTyNF4tbbbhYmW zJE3jhyd9HeHkSG1ozbrrTiGcVZcaRICxvsroMO Tcv3ZquyamHG9bQ4Ptc1E2rY9yaXNsELVcmLCoY oBbEEJlhv3sfEWzUHaaf8QjHCP2ehL6sEEcyRGc NAItTT46Vijbb7VjNgedCRS8VXPivkSzu8Phu9o fQoHoluCiR2nyM4AhQIUqHUVePETxOyGsjuWip4 Uaz6XvhSBanYo1e2whZHBnGNDwbEwyb1qyCTJ3S KMiN8R1pHWzd4qjRQeoCKBgbAT3pybhFIyrOSEy iuX6mkuxWYrdYQIxdBN4goemUSlnVLCvArQ8wpt iIQnoUMJxLCJ9RJnts158MXI1NCtyNbpyGKrzRN BnbmNvbnRccGduZGVjXHBsYWluXHBsYWluXGYwX CPfHdTjjAeogVtxtU0fTgFsLuHoJKelVV5xKHEx J3mwbIOkWCVaSEFsJ6xyFoMrxC2llQvrLEzmjtT lRNe3JzKwEUA0NJRrYdniTDxgRXUfiOPwoV== CLINICAL HISTORY (test code = 3356) f8twkMApMQMxoVHaJcJpZQOoCDKtn8v cZGVmbGF xEfWfVvPuMyXpIecltBNeMTFzMiCcn0nda908eJ Tmj4spQATyVzU0oMJoAEDoiNRmF570v1uqu4htg qMvrCZ5SHPiCIR1MYgxyjRwoaR2RDfmxGNdTvT5 RHyjkaJgEJrserDuleTgSwr4UGJsT352TCW9fBy vq4bwJTZ6EYGrCGReDaOrMm6ocQVaM682ILQpOL AUDHKmsAc5IJAsguBlgkWouMMLc472N201p8otF JPzoyUvfIeDezjyq6tiE924PKIafMBywmZePeDh SQBfcOHbgVG5URHdHA0eybgzEiAcYS6veexfQvB mPG5phoo2HjPwNZ3cmrasEoIjJTtcTZUjobrkMT Cfn6ImubewGV5jU0Rzy6P2lM7qsHWsUPCukXCyT fZvYDIvlb8zjAElDNbbt8KpAGX8ylZ7rUEpdICb YFLzDV64Dyjvr7ApFoxmNDH9SZPkyzHml5Uxe9a jBcBdahWrB5vzL9UyWGOxIFGwAFEqPiLjilFtn2 Bze4GokPAtvTz4m5wgOIRuMWZxlSvhd2sfPKG9D LUlU1D1kMIrz9anJMzhCHJpmGG5horhXTngDNMw nsN6hlpsPPbkWJSndHD8ouuyMZqbCQKtVzA6cpm hYVduVWTnWMQ2QNawk619QNJ6GKyaMqqxPMziFD BnbmNvbnRccGduZGVjXHBsYWluXHBsYWluXGYwX VUlUdCwvPorfWdsyL6jLgBgLqHmHVvuRO7tBRUa P1wgdAHvZHCfLINvL5guKwNtqF8pfLgzRCrzbkH qQZ4mxJaywhMmeAXeRG5hrNHupMUdBeLxpP4qPG 51bSBccGFyfQ== SPECIMEN SOURCE (test code = 3377) r6otfTXpNHAveCLbYsXxDLMfCAPtq0jd ZGVmbGF xHeVvXjVkEtAeShjxcAAwPBDmJdPcr8acb897sG Gzw6qoJZTwHxA9pLJtEEVwyMNsH321AABwOKxiu 5lkw0AuUKWliPZyn8C7NNYGiumpuWr1zIwtU95w v6L2JjvzJ0veBAVpCPUzT4ZbRB0nLZNvFfb1ISR 1PYE0CVDrTPFaQ9UiTM4gSMPpgAEtOIi3g4yguD liJVFaLOH5j2lsWHiczpLtRL2sfd0ypLz6v5wci eCePIWfIWZlsHTCBLRaH8KoyTikAy3pfDu9rVrq WznbAVU2Tix8ZQ3cul85dlf0nWghMYTlvqpdCgK 9TOjeAZYblcmxQZm2DZdzVGBwsNczQXpxNHCkcu kbEAxuLJQszUytBNyzYKHtPckcQRkfCXCjLAS6A Htls782EBF1MMriw8qnk8briNFhOut4UGGwVhYm AttgPNvnz5Axc6rzXRLudl1qXIY2sARexGseb4S 1gZUuGLTocFWdgaPzWBJzSxH5RLavFY4eey05KB XjTAH8ag1gwUVanWjlzqCqvVQwRMphZ9TrZTTif 724QMUoA5QlXNQdf9M4jvDkNlAoLNRrsCN8vfZ6 TVOwTKx8vNRirmS6yeEedEUvK6znrE47RgDqeIJ kB2EsmZ20MqFjcDUfT3JyrQ59GbBhcMQuT4XecY 27QbSknNMqMOEapZRhRc8diXVmmTRnl8WrmGVbZ JvqY86qk755KRNxthCyT6vqyPWyukkwpHSymlqg RPxistU2QREgITUcCEmnIAGfHLRiDvFrwBKtCrI xBwMfaRipcCkgMBajIlAyYCPcGQpcG5axLnJpNk XzKKEDEbThBLr6TKAwIFBuB8a2VDxvUpSct0JpY 4McRDRgyoJJUuUvC8OnvMTepUItTVJqAVLcix4= GROSS DESCRIPTION (test code = 3366) n4mynFRqIQKkkMQdAdJxNSIzIDJnj7 lcZGVmbGF oRnXdOlYnHrYtEpfwzNAjBYOqOzBub6kbc401kE Jqy2mnIXQfCvY6iMOkUOZsjXNoT758OOItAXahk 3owk6LmCPJvfNBym7M5YJJHlcyehXd5eOnhA87a r1X9ErsiZ0ujPHDtYFFtU8YmUZ9jLRIsVra1SRO 7KQF2AGAuPOGxY5TnVY0jOJBmbZJiMCw9m5pevA stTUOiLOZ5o8soWFlxknMdWE3job5wnTp2r5bab xJkAUVnZEKarYCZHUXbO7TirCndVr3kqWa0lBrn ZhblVGO0Vea3QD4lui23vqy9dPagQDDpkdefBoU 2STyuHBZfxcahBGu2CVobBKTrdGkpKOgkIMBpmd gkBWafEUJhbAubYQjgPMRwDqkfGFivYWOiZWH4B Xrpn041WBB6XTrzy1bvd7ofuBXzWlo9HVNaPkUx YvvrJFqfn7Abf5eoHNNjms6iMAT5cRStaDxrz9T 0mNSqVVQygMNbgwTbABVcAeO2EQaaER3zjs16NO TvHEJ4do2gaRHowDabbyJwzZSiIZamK8MsZZEjh 877KRUeY0UiFQMwi6T9hhKsCjUdQUXmcES8fjD5 KMGjHDp4zXQznpF4ppNkdZHyM9ntqI09PoSrxEU zE2BxjB40JxIypRNsV1HskR31ZlVfrIFqK2FyjA 46XzXtjFQyJEDqkZYyVx0pdBHfuMTft8GrpLUsM VglD84ib383VZIadtXsW1azfVZkpvcejSNtayyp CGhctyT4IPIhXFTuBHsbXJTiONQeYjBuhXUtPdO rKnFztOkdvRhiFUciShGbEGMnBLabA6ymDvXdEg UsCGEGAeXBEPCxdDEyYYOvytDxpAFgu5EmZxQvk xWhXHXcQ9Jpr92rtKTeEKghWXN1jTDnUBHxYBLr SRBuDP55H8NbsaZaAJohaZKofZRgiKTtDWYbmrC qbsLlUzLgPVYeZXQjpFz2SMAgQVlrIBThHO37TL hpAPMzRGmtFN5iTCfhQD6nABUcBMdgmdHeJGvlH HlbHsTEqMHvM6Dtd4KzGUMvpJQakUW9rqXvLVIv LvM1PMOmXvT8HFNfYYSrpOnrpCbmSXSvAujbEIJ qJVaxAMtncWoscNOoQcHDvIRuiOCuP0psQSapTM oga5HnWKVddCMgUJNsYSK1iGHnv3PoR4dcXJ8rw XQif1DdwWGeeVihk5MxjMbnjeJkCKUcDVDatoCa aFLeyx31bsKee05iO1JuCR52dcYrGNIgnqCcpY1 uHqHIiUIyj3CxP3rtRU4uuVGaTU29fQJohJfno9 FiaXa8rCYrXsivLKLzdUEoKEZcK3Zji17tV78fC MwkgYPaFANnEhA6GBRzXRN6BGA7ldXwDSHpqX7n IESkgqXtbxTrT0HvGUKbe8HehQpjpfYikBJpCDA mCiT9MAAaxOItlzTdzcCyRdB6hWFwm2YuM4baWW 9vx3WocMs2fXEgLHGrihWyauLmZ2NlCIIqgTxzL PXaN5erIXqhZVHuhmbkZTQlMr7kXmByMYq5LAUd XeOcl8jmNAbxSqPgLAVay6f4lUN8qMZarBU3yCK riZybOB6ywZFqTM5DWpRhooGjXnkuiRxvtRAxXI BcSoHrheKuQ05sb7fbwZGaj1UzJL2fiQ19PWR6H KfixTtmmLFdLRYyFXcfVTF5AJHaMtT0WUNtW19s HIckyXVtFVfkgnXzCMOugWSwNDSeV9gpjYxhZOV 2E6PbBLSlQKRaUTWbb0GhnNPyVWJercKfnmYioj BhbmQgZGlzdGVuZGVkLiAgVGhlcmUgaXMgYSAxI PajPI62PAmyBI85IIDxEP1ums0bln2ivwE5VTN2 n5KcAmHjjFY6XSd1nSFhWB7tCQIgXCMhWJPcWNm aAhdxJIEvryIcttKjcMVnGXVwoN2dyaB3LZMdSH WoHRNvuR4rOT41ABWlt0SlbEZnSpJeibIinfWjc LkeXcGjGs3cZ1ahrSBqbCHneuFmmeVnwKYkphVt CssvBQStonQ5wPQjv6MwT5xhBU2dn5DooWlrHWY aHDLidCNuXDWhfeUytN9kdn0ySSjhGV93B78aNE BpcyBncmVlbiBhbmQgdHJhYmVjdWxhdGVkLiBUa ROrl9OjzCF5oWtwr58nd6UcsAKyAH8pMCSyDnGD myMeem9mpuUzBJXch44bVIZzQMLiHLMbyYwerXU pCvNJKQZyBPWpqtCarMp8QCOmLNC1eK1duhLlqh Krd1RenKj1qALvWgvdXXIujSVbDETaN1Crt99eG 70pKPtuNEIuZxL3LTE2v1TuKnEscAA0KF1rhnyf gdicOH5dAnStZQJbgjFmODJpeR3wbSIse7CoGOW hpFAqE6UvMGehODThXjV0IQtnbKusfBEvPEYtZD drrDhhaTHbEKQitfYZnNIwa6PxYAvmERKqBOJNB OCbUKWZYIpJQ5UIBLwoAPN7 INTRAOPERATIVE CONSULTATION (test code = n6ufmPTeKQPcq MPuZjXgJIEeLJToq6hlYDFfsGM 5774) nGbEwEsAtGvNtDgfukSHrKWCoCxMfk3exe612eM Spq5uwEHNzYtD0eFCxSKAxwHRmE536MMMzLAjsk 5six6OeXVEloGGuf7Y5MTMUlyfsoJa6dHgbV37a m0J8WgghL6otJYGoCDWvK6LxNP0eXCTlQov7KMX 7OAN3BHXgXJJyZ6XgWP0pMVGjlQAzMKs7k2wsdP jzCESsMZX4e1chGIcxkvIbWT2rfq3niYd2i2bwg sInRXMlOZGphEWPRIMcF1EhkZouPd9cnQo2qHns OgnoYNJ5Slm1JD1jnf52eso0eAymLFSssbdsRqC 4SYrjKEUumhclVWh1RXbcXBWkvIzpDWcrMQFvzz qoDFnbPNVusIecSQyzXOQzPdpcEZclAROdWTW3O Hnpc109TTO8LRxxl2qqp2dtfALpBbv9XRPaYtNp XveyNBpsd5Iyq6ahYVJqta3tAOB3gGIidFsix9A 0kHFyEQXcuDQhtlBtRXLvXyT3GOtnMW3jhp53ZL RsNHM9sl7psAJcgNfxgsAwaMJkFHycK1PhDYYqe 369DOPbW3NjQMRsd7O4ouUbSlCdVSPplWW6rcD2 IPWlTZd8kTLdltH8yqToiOXxK8pzdX20JkHmoON pC1PazF70GlTbyFWeZ8ZyqQ90AhFmoLKeV8HbyX 34TjSdsRRrGURivESvJk3coSGcsXTth5DhiYCzX CwaS99cp108UQXvneArY9yloWZemckjkWSipjwj DWbzeeZ6MLKnIOLsWSnbFLLrUOQsGdTioBRhDaO lRjDlmHbnjHjdIDgvAoNpJANdHOofV9ndYdGxTb MyMCBBLiBMSVZFUiwgQklPUFNZOlxwYXIgICAtI KCULL2JS2YEN7uBS10ANUmxKLSitGRsBNNuwR2h gMPpCIJ7UZYtLtRHvNDjdPAdAZRzSEEvJiSINF3 nHvByQE0kt50cTM2vJj3pZGilSSFaFJq0UMksGT J9 MICROSCOPIC DESCRIPTION (test code = t7mnxSKrRTCfwKZhSjItFBLwRFXrk3 [place] [address] jPxEmHhTqOwVeMuttlVGzMKLuOmVpm3mef356lK Ihq2hpSKBqAtH4iRMtSDVmjENsM735t3wus7ukp kIfzER8DCCxFYY5FNoqkhCrhiI9VKrefMNgLlH4 ATdinaSyRGfwlnTbqeRdSlz6AVBuI535FUS9oCj pq0qjAUV7VCAjFCLdBkWyOk8pnCDzU752VJYgNN EHUFChtHy1UVBaqdIoudRpaGEYz882J528p8ewT HErqcIlgNlYsmiae3ckB406MKWvlPOmrrCiNqBi HRTttGNgjEL6FCXnSO9atmftGeWuDW0guywxMqC nGT3icgj9AvBxTI5lwckgAqUuZJbeGCGpgyquKC Mdf1KzciltKT1lF8Izw0R7vP7wrOJqYGPpuUUfP oXpHMRsck2bkIKuWSmft2RxSPM4yxD6fCJcmUMv XJLcBL32Wdahg8WyYibiHQS3LDPkwdQaa8Yyf5g tRoMqrrGsH7zdO3JqXVAyQKKgZHNdTsDkfaJiu2 Rtu3BorMVbzFe9e9ciJIPiRMZskMbjh7ztLZG7P HYiS2Z5zMSki7sgBRuoLOTbyGT0sjnnNVnqLCKa pnZ3umjvFDkzAZPqlYD2gtajMEqhFFOnGkP5mhp uBQarJDLbVUV6WPlpw937LGI7SUytTcueBZiqSB BnbmNvbnRccGduZGVjXHBsYWluXHBsYWluXGYwX MGdAjOciQmqlMgeeV2iAbXyZlUnVTgjXV0iSPUx H6jjbHHxBDVdJLEeG0cwZnLauC5muSqkHAmaeqW gIXJremOksf9yDAxhHJP0 [facility] CenterT[facility] [id number] 16:05:00Surgical Pathology Report Case: [id number] Authorizing Provider: Lv Quiros II, MD Collected: 10/01/2019 08:34 AM Ordering Location: [facility] PERIOPERATIVE Received: 10/01/2019 08:38 AM SERVICES Pathologist: [...] developed and its performance characteristics determined by [facility], Pathology Laboratory. It has not been [...] to perform high complexity clinical laboratory testing. [id number], 22720 [id number] electronically signed by Ronnie Pope MD on 12/23/2019 at 4:05 PMA. LIVER, RIGHT LOBE WEDGE RESECTION: - POSITIVE FOR METASTATIC ADENOCARCINOMA, MODERATELY DIFFERENTIATED.B. GALLBLADDER, CHOLECYSTECTOMY: - MILD CHRONIC CHOLECYSTIS - CHOLESTEROLOSIS - ONE LYMPH NODE POSITIVE FOR METASTATIC ADENO CARCINOMA (02/05) Signing Pathologist Direct Phone Line: [phone] signed by Ronnie Pope MD on 10/03/2019 at 2:43 BY63453, [phone], 56805Vmghikmvm neoplasm of duodenum A. Liver, right lobe [...] entirely submitted.Section code:A1FS: Plaque to margin, perpendicular yxhttzhgW6ZT: Remainder of the specimen submitted perpendicularlyCG/ew B. [...] 0.1 cm. No gross lesions are identified. Power Plant Operator sections are submitted.Section codeB1: Cystic duct margin, en fac e and 1 lymph node, bisectedB2: Gallbladder wallChelsea SHAINA Ballard PA (ASCP)A. LIVER, BIOPSY: - ADENOCARCINOMA Reported by Dr. Pope to Dr. Quiros on 10/01/19, at 0855PerformedFungus culture + [id number] 17:22:00 Test Item Value Reference Range Interpretation Comments Result (test code = No fungus isolated in 6463-4) 28 days Fungus Smear (test No fungal elements seen code = 1406) [facility] Center[facility] + [id number] 17:22:00 Test Item Value Reference Range Interpretation Comments CULTURE (BEAKER) (test No fungus isolated in code = 1095) 28 days FUNGUS SMEAR (BEAKER) No fungal elements seen (test code = 1406) SARS-CoV2/RT-PCR (Asymptomatic ONLY)2019-10-08 17:14:00 Test Item Value Reference Range Interpretation Comments SARS-COV2/RT-PCR Negative Not Detected, (test code = Negative, See 11417-3) external report for linked test [facility]COV-2 [facility] (test code = 72649-0) RAFAEL (test code = Negative result for [...] of the Act. Fact Sheet for Healthcare Providers:https://www.[employer]/sites/default/f colette/product/documents/F act_Sheet_HC_Providers_L hon_TCDV-NuU-9.pdf Fact Sheet for Healthcare Patients:https://www.[employer]/sites/default/fi les/product/documents/Fa ct_Sheet_Patients_Lyra_S ARS-CoV-2.pdf Performing Laboratory:[facility] [address] [facility] ([facility])2019-10-08 17:14:00 Test Item Value Reference Range Interpretation Comments SARS-COV2/RT-PCR (test Negative Not Detected, Negative, code = 5462102) See external report for linked test SARS-COV-[address] [facility] (test code = 8220614) Negative result for this test determines that [...] 564(g) of the Act.Fact Sheet for Healthcare Providers:https://www.[employer]/sites/default/files/product/documents/Fact_Shee z_GO_Jvgatyiou_Zgrx_KXZD-XgA-3.pdfFact Sheet for Healthcare Patients:https://www.[employer]/sites/default/files/product/ documents/Qctq_Tolkr_Qlylrkns_Mhka_KUKX-XrE-2.pdfPerforming Laboratory:[address], [place] [address]FRG-Yfjltbd meter 2019-10-08 11:14:00 Test Item Value Reference Range Interpretation Comments POC-Glucose Meter (test 94 mg/dL 70-110 : TE STED AT [facility] code = 1538) [address] [facility], 770 30: Skin Care Therapist/Techni kimberlee ID = [id number] for Yolie Mcduffie na Lab Interpretation (test Normal code = 32666-9) [facility] CenterPOCT-GLUCOSE [id number] 11:14:00 Test Item Value Reference Range Interpretation Comments POC-GLUCOSE METER 94 mg/dL 70-110 : [facility] (BEAKER) (test code = [facility], 1538) [address]: Skin Care Therapist/Techni kimberlee ID = [id number] for Will iams, Areiona POCT-GLUCOSE [id number] 07:28:00 Test Item Value Reference Range Interpretation Comments POC-GLUCOSE METER 90 mg/dL 70-110 : TESTED A T [facility] 67[address] (BEAKER) (test code = [facility], 1538) [address]: Skin Care Therapist/Techni kimberlee ID = [id number] for Will iams, Areiona Basic Metabolic [id number] 04:44:00 Test Item Value Reference Range Interpretation Comments Sodium (test code = 130 meq/L 136-145 L 2951-2) Potassium (test code 3.7 meq/L 3.5-5.1 = 2823-3) Chloride (test code = 102 meq/L 98-107 2075-0) CO2 (test code = 24 meq/L 22-29 8-9) BUN (test code = 5 mg/dL 7-21 L 3094-0) Creatinine (test code 0.60 mg/dL 0.57-1.25 = 2160-0) Glucose (test code = 86 mg/dL 70-105 2345-7) Calcium (test code = 7.7 mg/dL 8.4-10.2 L 62646-4) EGFR (test code = [place] [address]-1) CLINICAL DATA T O CALCULATE ESTIMATED GFR. RAFAEL (test code = RAFAEL) Skin Care Therapist VIRGEN Rodríguez Lab Interpretation Abnormal (test code = 18082-3) [facility] CenterBASIC METABOLIC [id number] 04:44:00 Test Item Value Reference Range Interpretation [...] 1092) DATA TO CALCULA TE ESTIMATED GFR. Skin Care Therapist VIRGEN PALENCIA [id number] 04:39:00 Test Item Value Reference Range Interpretation Comments Magnesium (test code = 2.0 mg/dL 1.6-2.6 13020-9) RAFAEL (test code = RAFAEL) Skin Care Therapist VIRGEN Rodríguez Lab Interpretation (test Normal code = 30061-1) [facility] CenterPhosphorus2020-09-02 04:39:00 Test Item Value Reference Range Interpretation Comments Phosphorus (test code = 2.3 mg/dL 2.3-4.7 2777-1) RAFAEL (test code = RAFAEL) Skin Care Therapist ID - TALHA W Lab Interpretation (test Normal code = 09514-5) [facility] CenterPHOSPHORUS2020-09-02 04:39:00 Test Item Value Reference Range Interpretation Comments PHOSPHORUS (BEAKER) (test code = 2.3 mg/dL 2.3-4.7 604) Skin Care Therapist ID - TALHA [id number] 04:39:00 Test Item Value Reference Range Interpretation Comments MAGNESIUM (BEAKER) (test code = 2.0 mg/dL 1.6-2.6 627) Skin Care Therapist ID - TALHA WPOCT-GLUCOSE [id number] 22:43:00 Test Item Value Reference Range Interpretation Comments POC-GLUCOSE METER 105 mg/dL 70-110 : TESTED A T [facility] 6720 (BEAKER) (test code = [facility], 153) [address]: Skin Care Therapist/Techni kimberlee ID = [id number] for JEANNE BONILLA POCT-GLUCOSE [id number] 15:31:00 Test Item Value Reference Range Interpretation Comments POC-GLUCOSE METER 111 mg/dL 70-110 H : TESTED A T [facility] 6720 (BEAKER) (test code = [facility], 1538) [address]: Skin Care Therapist/Techni kimberlee ID = [id number] for AILIN FARAH POCT-GLUCOSE [id number] 12:56:00 Test Item Value Reference Range Interpretation Comments POC-GLUCOSE METER 102 mg/dL 70-110 : TESTED A T [facility] 67[address] (BEAKER) (test code = [facility], 1538) 50465: Skin Care Therapist/Techni kimberlee ID = [id number] for AILIN FARAH POCT-GLUCOSE [id number] 07:35:00 Test Item Value Reference Range Interpretation Comments POC-GLUCOSE METER 93 mg/dL 70-110 : TESTED A T [facility] 6720 (BEAKER) (test code = [facility], 1538) 77[address]: Skin Care Therapist/Techni kimberlee ID = [id number] for AILIN BLUM BASIC METABOLIC [id number] 04:53:00 Test Item Value Reference Range Interpretation [...] 1092) DATA TO CALCULA TE ESTIMATED GFR. Skin Care Therapist ID - [id number] 04:52:00 Test Item Value Reference Range Interpretation Comments PHOSPHORUS (BEAKER) (test code = 1.8 mg/dL 2.3-4.7 L 604) Skin Care Therapist ID - [id number] 04:52:00 Test Item Value Reference Range Interpretation Comments MAGNESIUM (BEAKER) (test code = 1.8 mg/dL 1.6-2.6 627) Skin Care Therapist ID - [id number] (Hemogram only)2019-10-07 04:28:00 Test Item Value Reference Range Interpretation Comments WBC (test code = 6690-2) 5.3 See_Comment [A utomated message] The system [employer] generated this result transmitted ref erence range: 3.5 - 10 .5 K/L. The refe rence range was not u sed to interpret this result as normal/abnor mal. RBC (test code = 789-8) 2.99 See_Comment L [Au tomated message] The system [employer] generated this result transmitted ref erence range: 4.63 - 6 .08 M/L. The refe rence range was not u sed to interpret this result as normal/abnor mal. MCHC (test code = 786-4) 33.3 See_Comment L [A utomated message] The system [employer] generated this result transmitted ref erence range: 32.3 - 3 6.5 GM/DL. The refe rence range was not u sed to interpret this result as normal/abnor mal. Hematocrit (test code = 25.2 % 40.1-51 L 4544-3) MCV (test code = 787-2) 84.3 fL 79-92.2 MCH (test code = 785-6) 28.1 pg 25.7-32.2 RDW (test code = 788-0) 13.8 % 11.6-14.4 Platelets (test code = 263 See_Comment [Aut omated message] 777-3) The system [employer] generated this result transmitted ref erence range: 150 - 45 0 K/CU MM. The referen ce range was not u sed to interpret this result as normal/abnor mal. MPV (test code = 9.4 fL 9.4-12.4 06174-4) nRBC (test code = 413) 0 See_Comment [Aut omated message] The system [employer] generated this result transmitted ref erence range: 0 - 0 /1 00 WBC. The refere nce range was not u sed to interpret this result as normal/abnor mal. Lab Interpretation (test Abnormal code = 72336-4) [facility] (HEMOGRAM ONLY)2019-10-07 04:28:00 Test Item Value Reference [...] 0-0 (BEAKER) (test code = 413) POCT-GLUCOSE [id number] 22:25:00 Test Item Value Reference Range Interpretation Comments POC-GLUCOSE METER 116 mg/dL 70-110 H : TESTED A T [facility] 6720 (BEAKER) (test code = [facility], 153) 94994: Skin Care Therapist/Techni kimberlee ID = [id number] for STEPHANIE PARRY POCT-GLUCOSE [id number] 14:58:00 Test Item Value Reference Range Interpretation Comments POC-GLUCOSE METER 95 mg/dL 70-110 : TESTED A T [facility] 6720 (BEAKER) (test code = [facility], 153) 54342: Skin Care Therapist/Techni kimberlee ID = [id number] for AILIN BLUM POCT-GLUCOSE [id number] 11:08:00 Test Item Value Reference Range Interpretation Comments POC-GLUCOSE METER 105 mg/dL 70-110 : TESTED A T [facility] (BEAKER) (test code = [facility], 153) 25504: Skin Care Therapist/Techni kimberlee ID = [id number] for AILIN FARAH POCT-GLUCOSE [id number] 07:06:00 Test Item Value Reference Range Interpretation Comments POC-GLUCOSE METER 97 mg/dL 70-110 : TESTED A T [facility] 6720 (BEAKER) (test code = [facility], 1538) 26395: Skin Care Therapist/Techni kimberlee ID = [id number] for HALIMA MICHEL AILIN BASIC METABOLIC [id number] 04:45:00 Test Item Value Reference Range Interpretation [...] 1092) DATA TO CALCULA TE ESTIMATED GFR. Skin Care Therapist ID - CARLOS ALBERTO [id number] 04:32:00 Test Item Value Reference Range Interpretation Comments PHOSPHORUS (BEAKER) (test code = 3.8 mg/dL 2.3-4.7 604) Skin Care Therapist ID - DERICFABIAN [id number] 04:32:00 Test Item Value Reference Range Interpretation Comments MAGNESIUM (BEAKER) (test code = 1.7 mg/dL 1.6-2.6 627) Skin Care Therapist ID - CARLOS ALBERTO LCBC (HEMOGRAM ONLY)2019-10-06 [...] 0-0 (BEAKER) (test code = 413) POCT-GLUCOSE [id number] 21:44:00 Test Item Value Reference Range Interpretation Comments POC-GLUCOSE METER 104 mg/dL 70-110 : TESTED A T [facility] 6720 (BEAKER) (test code = [facility], 1538) 11720: Skin Care Therapist/Techni kimberlee ID = [id number] for LUCIUS LOAIZA POCT-GLUCOSE [id number] 15:21:00 Test Item Value Reference Range Interpretation Comments POC-GLUCOSE METER 120 mg/dL 70-110 H : TESTED A T [facility] 6720 (BEAKER) (test code = [facility], 1538) 82250: Skin Care Therapist/Techni kimberlee ID = [id number] for Me ndez, Kimmy POCT-GLUCOSE [id number] 11:29:00 Test Item Value Reference Range Interpretation Comments POC-GLUCOSE METER 92 mg/dL 70-110 : TESTED A T [facility] 6720 (BEAKER) (test code = [facility], 1538) 10333: Skin Care Therapist/Techni kimberlee ID = [id number] for Mend ez, Kimmy POCT-GLUCOSE [id number] 07:38:00 Test Item Value Reference Range Interpretation Comments POC-GLUCOSE METER 107 mg/dL 70-110 : TESTED A T [facility] 6720 (BEAKER) (test code = [facility], 1538) 80480: Skin Care Therapist/Techni kimberlee ID = [id number] for Me ndez, Kimmy BASIC METABOLIC [id number] 04:35:00 Test Item Value Reference Range Interpretation [...] 1092) DATA TO CALCULA TE ESTIMATED GFR. Skin Care Therapist ID - CARLOS ALBERTO [id number] 04:25:00 Test Item Value Reference Range Interpretation Comments PHOSPHORUS (BEAKER) (test code = 1.7 mg/dL 2.3-4.7 L 604) Skin Care Therapist ID - CARLOS ALBERTO [id number] 04:25:00 Test Item Value Reference Range Interpretation Comments MAGNESIUM (BEAKER) (test code = 1.9 mg/dL 1.6-2.6 627) Skin Care Therapist ID - CARLOS ALBERTO LCBC (HEMOGRAM ONLY)2019-10-05 04:12:00 Test Item Value [...] 0-0 (BEAKER) (test code = 413) POCT-GLUCOSE [id number] 21:34:00 Test Item Value Reference Range Interpretation Comments POC-GLUCOSE METER 106 mg/dL 70-110 : TESTED A T [facility] 6720 (BEAKER) (test code = [facility], 1538) 11243: Skin Care Therapist/Techni kimberlee ID = [id number] for AN STEPHANIE LAWSON POCT-GLUCOSE [id number] 15:32:00 Test Item Value Reference Range Interpretation Comments POC-GLUCOSE METER 120 mg/dL 70-110 H : TESTED A T [facility] 6720 (BEAKER) (test code = [facility], 1538) 21073: Skin Care Therapist/Techni kimberlee ID = [id number] for Kimmy Weaver Surgically obtained culture + gram [id number] 13:43:00 Test Item Value Reference Range Interpretation Comments Result (test code = 6463-4) No growth Gram Stain Result (test No organisms seen code = 1123) [facility]AM [id number] 13:43:00 Test Item Value Reference Range Interpretation Comments CULTURE (BEAKER) (test code No growth = 1095) GRAM STAIN RESULT (BEAKER) No WBCs (test code = 1123) GRAM STAIN RESULT (BEAKER) No organisms seen (test code = 24244) POCT-GLUCOSE [id number] 11:49:00 Test Item Value Reference Range Interpretation Comments POC-GLUCOSE METER 119 mg/dL 70-110 H : TESTED A T [facility] 6720 (BEAKER) (test code = [facility], 1538) 70219: Skin Care Therapist/Techni kimberlee ID = [id number] for Kimmy Weaver Anaerobic [id number] 09:09:00 Test Item Value Reference Range Interpretation Comments Result (test code = No anaerobes isolated 6463-4) [id number] 09:09:00 Test Item Value Reference Range Interpretation Comments CULTURE (BEAKER) (test No anaerobes isolated code = 1095) POCT-GLUCOSE [id number] 07:44:00 Test Item Value Reference Range Interpretation Comments POC-GLUCOSE METER 113 mg/dL 70-110 H : TESTED A T [facility] 6720 (BEAKER) (test code = [facility] [place], 1538) 67865: Skin Care Therapist/Techni kimberlee ID = [id number] for Kimmy Weaver [id number] 06:27:00 Test Item Value Reference Range Interpretation Comments PHOSPHORUS (BEAKER) (test code = 1.4 mg/dL 2.3-4.7 LL 604) Skin Care Therapist ID - CARLOS ALBERTO [id number] 06:02:00 Test Item Value Reference Range Interpretation Comments MAGNESIUM (BEAKER) (test code = 1.6 mg/dL 1.6-2.6 627) Skin Care Therapist ID - CARLOS ALBERTO LBASIC METABOLIC [id number] 06:02:00 Test Item Value Reference Range Interpretation [...] 1092) DATA TO CALCULA TE ESTIMATED GFR. Skin Care Therapist ID - DERICFABIAN LCBC (HEMOGRAM ONLY)2019-10-04 05:00:00 Test Item Value [...] 0-0 (BEAKER) (test code = 413) POCT-GLUCOSE [id number] 21:17:00 Test Item Value Reference Range Interpretation Comments POC-GLUCOSE METER 115 mg/dL 70-110 H : TESTED A T [facility] 6720 (BEAKER) (test code = [facility], 1538) 15142: Skin Care Therapist/Techni kimberlee ID = [id number] for PAVAN PRINGLE POCT-GLUCOSE [id number] 16:16:00 Test Item Value Reference Range Interpretation Comments POC-GLUCOSE METER 108 mg/dL 70-110 : TESTED A T [facility] 6720 (BEAKER) (test code = [facility], 1538) 66355: Skin Care Therapist/Techni kimberlee ID = [id number] for YONI DOHERTY POCT-GLUCOSE [id number] 12:33:00 Test Item Value Reference Range Interpretation Comments POC-GLUCOSE METER 102 mg/dL 70-110 : TESTED A T [facility] 6720 (BEAKER) (test code = [facility], 1538) [address]: Skin Care Therapist/Techni kimberlee ID = [id number] for YONI DOHERTY RAD, ABDOMEN/KUB, 1 VIEW [id number] 09:32:00Reason for exam:->abd distentionFINAL REPORT RAD, ABDOMEN/KUB, [...] colon. No acute osseous abnormality. Signed: Tito Castellano Verified Date/ Time: 10/03/2019 09:32:02 Reading Location: [facility] Diagnostic Imaging Reading Room - [place] [address] XR abdomen / KUB 1 [id number] 09:32:00Interface, External Ris In - 10/03/2019 9:34 [...] colon. No acute osseous abnormality. Signed: Tito Castellano Verified Date/Time: 10/03/2019 09:32:02 Reading Location: [facility] Diagnostic Imaging Reading Room - [place] [address] Electronically signed by: TITO CASTELLANO MDon 10/03/2019 09:32 [facility] 2019-10-03 07:33:00 Test Item Value Reference Range Interpretation Comments POC-GLUCOSE METER 118 mg/dL 70-110 H : TESTED A T [facility] 6720 (BEAKER) (test code = [facility], 1538) [address]: Skin Care Therapist/Techni kimberlee ID = [id number] for YONI DOHERTY BASIC METABOLIC [id number] 04:55:00 Test Item Value Reference Range Interpretation [...] 1092) DATA TO CALCULA TE ESTIMATED GFR. Skin Care Therapist ID - SKVEAKXEPIUPNGQ2858-55-29 04:53:00 Test Item Value Reference Range Interpretation Comments PHOSPHORUS (BEAKER) (test code = 2.4 mg/dL 2.3-4.7 604) Skin Care Therapist ID - KFJQERRSUJMIEQ8540-70-92 04:53:00 Test Item Value Reference Range Interpretation Comments MAGNESIUM (BEAKER) (test code = 1.7 mg/dL 1.6-2.6 627) Skin Care Therapist ID - EDASICBC (HEMOGRAM ONLY)2019-10-03 04:21:00 Test [...] 0-0 (BEAKER) (test code = 413) POCT-GLUCOSE [id number] 20:53:00 Test Item Value Reference Range Interpretation Comments POC-GLUCOSE METER 115 mg/dL 70-110 H : TESTED A T [facility] 6720 (BEAKER) (test code = [facility], 1538) [address]: Skin Care Therapist/Techni kimberlee ID = [id number] for BETH VELARDE POCT-GLUCOSE [id number] 16:08:00 Test Item Value Reference Range Interpretation Comments POC-GLUCOSE METER 108 mg/dL 70-110 : TESTED A T [facility] 6720 (BEAKER) (test code = [facility], 1538) [address]: Skin Care Therapist/Techni kimberlee ID = [id number] for AILIN FARAH BASIC METABOLIC [id number] 05:04:00 Test Item Value Reference Range Interpretation [...] 1092) DATA TO CALCULA TE ESTIMATED GFR. Skin Care Therapist ID - NTPHepatic function wrnkj1415-23-31 04:53:00 Test Item Value Reference Range Interpretation Comments Protein, Total (test 5.4 See_Comment L [Autom ated code = 2885-2) message] The system which generated this result transmit marisela reference range : 6.0 - 8.3 gm/dL . The reference range was not u sed to interpret th is result as normal/abnormal . Albumin (test code = 2.9 g/dL 3.5-5 L 85647-2) Total Bilirubin (test 0.6 mg/dL 0.2-1.2 code = 1975-2) Bilirubin, Direct 0.3 mg/dL 0.1-0.5 (test code = 1968-7) Alkaline Phosphatase 118 U/L 40-150 (test code = 6768-6) AST (test code = 153 U/L 5-34 H 1920-8) ALT (test code = 152 U/L 6-55 H 1742-6) RAFAEL (test code = RAFAEL) Skin Care Therapist ID - NTP Lab Interpretation Abnormal (test code = 83194-0) [facility] Center[facility]OSPH[facility]US2020-[facility] 04:53:00 Test Item Value Reference Range Interpretation Comments PHOSPHORUS (BEAKER) (test code = 3.6 mg/dL 2.3-4.7 604) Skin Care Therapist ID - [id number] 04:53:00 Test Item Value Reference Range Interpretation Comments MAGNESIUM (BEAKER) (test code = 1.2 mg/dL 1.6-2.6 L 627) Skin Care Therapist ID - NTPHEPATIC FUNCTION [id number] 04:53:00 Test Item Value Reference Range Interpretation [...] code = 152 U/L 6-55 H 347) Skin Care Therapist ID - NTPCBC (HEMOGRAM ONLY)2019-10-02 04:23:00 Test [...] 0-0 (BEAKER) (test code = 413) POCT-GLUCOSE [id number] 22:41:00 Test Item Value Reference Range Interpretation Comments POC-GLUCOSE METER 128 mg/dL 70-110 H : TESTED A T [facility] 6720 (BEAKER) (test code = [facility] [place], 1538) [address]: Skin Care Therapist/Techni kimberlee ID = [id number] for MAGO MERRILL Manual [id number] 12:47:00 Test Item Value Reference Range Interpretation Comments % Neutros (test code = 75 % 281) % Lymphs (test code = 18 % 2817) % Monos (test code = 4 % 2817) % Myelo (test code = 1 % [...] Cells (test 1+ few code = 481) Lemitar Cells (test code = 2+ moderate 474) Artifact (test code = Present 3432) Platelet Conc (test Adequate code = 3438) RAFAEL (test code = RAFAEL) Skin Care Therapist ID - Chanda NoelCortney comments: Slide comments: WBC: SEGMENTED WITH TOXIC GRANULATIONS PRESENT Lab Interpretation Abnormal (test code = 24189-6) [facility](CELLAVISION MANUAL DIFF)2019-10-01 12:47:00 Test Item Value Reference [...] CONCENTRATION Adequate (CELLAVISION)(BEAKER) (test code = 3438) Skin Care Therapist ID - Chanda Strauss comments: Slide comments: WBC: SEGMENTED WITH TOXIC GRANULATIONS PRESENTCalcium, [id number] 10:15:00 Test Item Value Reference Range Interpretation Comments Calcium, Ion (test code = 1993-) 1.03 mmol/L 1.12-1.27 L pH, Blood (test code = 70449-2) 7.43 Lab Interpretation (test code = Abnormal 89798-2) [facility] CenterCALCIUM, [id number] 10:15:00 Test Item Value Reference Range Interpretation Comments CALCIUM IONIZED (BEAKER) (test 1.03 mmol/L 1.12-1.27 L code = 698) PH, BLOOD (BEAKER) (test code = 7.43 1810) HGB/HCT (H&H)-Stat [id number] 10:14:00 Test Item Value Reference Range Interpretation Comments Hemoglobin (test code = 786-4) 10.7 g/dL 13-16.8 L Hematocrit (test code = 4544-3) 31.0 % 40-50 L Lab Interpretation (test code = Abnormal 79909-6) [facility] CenterGlucose-Stat [id number] 10:14:00 Test Item Value Reference Range Interpretation Comments Glucose (test code = 2345-7) 166 mg/dL 70-110 H Lab Interpretation (test code = Abnormal 85471-2) [facility] CenterBlood gas, [id number] 10:14:00 Test Item Value Reference Range Interpretation Comments pH, Arterial (test code 7.45 7.35-7.45 = 2744-1) pCO2, Arterial (test 35 See_Comment [Autom ated code = 2019-8) message] The system which generated this result transmitted reference range : 35 - 45 mmHg. The reference range was not used to interpret this result as normal/abnormal . pO2, Arterial (test 228 See_Comment H [Automa marisela code = 2703-7) message] The system which generated this result transmitted reference range : 80 - 90 mmHg. The reference range was not used to interpret this result as normal/abnormal . O2 Sat, Arterial (test 99.5 % 96-97 H code = 2708-6) HCO3, Arterial (test 24 mmol/L 21-29 code = 1960-4) Base Excess, Arterial -0.5 mmol/L -2-3 (test code = 1925-7) Patient Temperature 35.8 C (test code = 8310-5) FIO2 (test code = 1819) 50 % Lab Interpretation Abnormal (test code = 85331-1) [facility] CenterBLOOD GAS, [id number] 10:14:00 Test Item Value Reference Range Interpretation [...] (test code = 1819) 50.0 % GLUCOSE-STAT [id number] 10:14:00 Test Item Value Reference Range Interpretation Comments GLUCOSE RANDOM (BEAKER) (test code 166 mg/dL 70-110 H = 652) HGB/HCT (H&H) - STAT [id number] 10:14:00 Test Item Value Reference Range Interpretation Comments HEMOGLOBIN (BEAKER) (test code = 10.7 g/dL 13.0-16.8 L 410) HEMATOCRIT (BEAKER) (test code = 31.0 % 40.0-50.0 L 411) pH, [id number] 10:12:00 Test Item Value Reference Range Interpretation Comments pH, Arterial (test code = 2744-1) 7.45 7.35-7.45 Lab Interpretation (test code = Normal 15311-3) [facility] CenterPH, [id number] 10:12:00 Test Item Value Reference Range Interpretation Comments PH ARTERIAL (BEAKER) (test code = 383) 7.45 7.35-7.45 ANESTHESIA SPINAL [id number] 08:38:58Nir Mcduffie MD - 10/01/2019 8:38 AM [...] position: sittingPatient monitoring: EKG, HR, BP and ZxC4Uxnaaxlp: midlineNo pictures availableLevel: L3-4Injection technique: single-shotlandmark technique and landmark techniqueNeedleNeedle type: pencil-tip (alex) Needle gauge: 25 GNeedle Length: 9 cmUsed introducerAssessmentSensory level: T37Pxnymk: cerebrospinal fluidpatient tolerated the procedure well and patient had no immediate complicationsCHI [facility] CenterPrepare [id number] 07:40:00 Test Item Value Reference Range Interpretation Comments CROSSMATCH (test code = 2264) COMPATIBLE Unit ABO (test code = O Pos 2522016) UNIT NUMBER (test code = [id number] 934-0) Status (test code = 0789320) READY Blood Bank Product (test code RED BLOOD CELLS = 2263) PRODUCT CODE (test code = F4105I31 933-2) [facility] CenterBASIC METABOLIC [id number] 06:17:00 Test Item Value Reference Range Interpretation [...] 1092) DATA TO CALCULA TE ESTIMATED GFR. Skin Care Therapist ID - [id number] 06:12:00 Test Item Value Reference Range Interpretation Comments PHOSPHORUS (BEAKER) (test code = 2.9 mg/dL 2.3-4.7 604) Skin Care Therapist ID - IGVYHRXIWKPBQN1506-85-69 06:12:00 Test Item Value Reference Range Interpretation Comments MAGNESIUM (BEAKER) (test code = 1.2 mg/dL 1.6-2.6 L 627) Skin Care Therapist ID - EDASIHEPATIC FUNCTION [id number] 06:12:00 Test Item Value Reference Range Interpretation [...] (test code = 10 U/L 6-55 347) Skin Care Therapist ID - EDASIType and screen, cnrhuggqy5847-62-32 05:53:00 Test Item Value Reference Range Interpretation Comments ABO/RH AUTOMATED (BEAKER) (test O POSITIVE code = 2260) Ab Scrn (test code = 890-4) NEGATIVE [facility] CenterCB with platelet count + manual [id number] 05:19:00 Test Item Value Reference Range Interpretation Comments WBC (test code = 6690-2) 6.4 See_Comment [A utomated message] The system [employer] generated this result transmitted ref erence range: 3.5 - 10 .5 K/L. The refe rence range was not u sed to interpret this result as normal/abnor mal. RBC (test code = 789-8) 3.34 See_Comment L [Au tomated message] The system [employer] generated this result transmitted ref erence range: 4.63 - 6 .08 M/L. The refe rence range was not u sed to interpret this result as normal/abnor mal. MCHC (test code = 786-4) 33.0 See_Comment L [A utomated message] The system [employer] generated this result transmitted ref erence range: 32.3 - 3 6.5 GM/DL. The refe rence range was not u sed to interpret this result as normal/abnor mal. Hematocrit (test code = 28.2 % 40.1-51 L 4544-3) MCV (test code = 787-2) 84.4 fL 79-92.2 MCH (test code = 785-6) 27.8 pg 25.7-32.2 RDW (test code = 788-0) 13.5 % 11.6-14.4 Platelets (test code = 271 See_Comment [Aut omated message] 777-3) The system [employer] generated this result transmitted ref erence range: 150 - 45 0 K/CU MM. The referen ce range was not u sed to interpret this result as normal/abnor mal. MPV (test code = 9.5 fL 9.4-12.4 03600-6) nRBC (test code = 413) 0 See_Comment [Aut omated message] The system [employer] generated this result transmitted ref erence range: 0 - 0 /1 00 WBC. The refere nce range was not u sed to interpret this result as normal/abnor mal. Lab Interpretation (test Abnormal code = 06730-8) [facility] WITH PLATELET COUNT + MANUAL [id number] 05:19:00 Test Item Value Reference Range Interpretation [...] (BEAKER) (test code = 413) BASIC METABOLIC [id number] 18:24:00 Test Item Value Reference Range Interpretation [...] 1092) DATA TO CALCULA TE ESTIMATED GFR. Skin Care Therapist ID - BSCBC with platelet count + automated [id number] 18:09:00 Test Item Value Reference Range Interpretation Comments WBC (test code = 6690-2) 10.5 See_Comment [A utomated message] The system [employer] generated this result transmitted ref erence range: 3.5 - 10 .5 K/L. The refe rence range was not u sed to interpret this result as normal/abnor mal. RBC (test code = 789-8) 3.47 See_Comment L [Au tomated message] The system [employer] generated this result transmitted ref erence range: 4.63 - 6 .08 M/L. The refe rence range was not u sed to interpret this result as normal/abnor mal. MCHC (test code = 786-4) 33.4 See_Comment L [A utomated message] The system [employer] generated this result transmitted ref erence range: 32.3 - 3 6.5 GM/DL. The refe rence range was not u sed to interpret this result as normal/abnor mal. Hematocrit (test code = 29.6 % 40.1-51 L 4544-3) MCV (test code = 787-2) 85.3 fL 79-92.2 MCH (test code = 785-6) 28.5 pg 25.7-32.2 RDW (test code = 788-0) 13.6 % 11.6-14.4 Platelets (test code = 261 See_Comment [Aut omated message] 777-3) The system [employer] generated this result transmitted ref erence range: 150 - 45 0 K/CU MM. The referen ce range was not u sed to interpret this result as normal/abnor mal. MPV (test code = 9.5 fL 9.4-12.4 78471-1) nRBC (test code = 413) 0 See_Comment [Aut omated message] The system [employer] generated this result transmitted ref erence range: 0 - 0 /1 00 WBC. The refere nce range was not u sed to interpret this result as normal/abnor mal. % Neutros (test code = 79 % 429) % Lymphs (test code = 13 % 430) % Monos (test code = 7 % 431) % Eos (test code = 432) 0 % % Baso (test code = 437) 0 % # Neutros (test code = 8.27 See_Comment H [Aut omated message] 670) The system [employer] generated this result transmitted ref erence range: 1.78 - 5 .38 K/L. The refe rence range was not u sed to interpret this result as normal/abnor mal. # Lymphs (test code = 1.35 See_Comment [Auto mated message] 414) The system [employer] generated this result transmitted ref erence range: 1.32 - 3 .57 K/L. The refe rence range was not u sed to interpret this result as normal/abnor mal. # Monos (test code = 0.72 See_Comment [Autom ated message] 415) The system [employer] generated this result transmitted ref erence range: 0.30 - 0 .82 K/L. The refe rence range was not u sed to interpret this result as normal/abnor mal. # Eos (test code = 416) 0.03 See_Comment L [Au tomated message] The system [employer] generated this result transmitted ref erence range: 0.04 - 0 .54 K/L. The refe rence range was not u sed to interpret this result as normal/abnor mal. # Baso (test code = 417) 0.02 See_Comment [A utomated message] The system [employer] generated this result transmitted ref erence range: 0.01 - 0 .08 K/L. The refe rence range was not u sed to interpret this result as normal/abnor mal. Immature 1 % 0-1 Granulocytes-Relative (test code = 2801) Lab Interpretation (test Abnormal code = 18740-6) [facility] W/PLT COUNT & AUTO [id number] 18:09:00 Test Item Value Reference Range Interpretation [...] PERCENT (BEAKER) (test code = 2801) SARS-COV2/RT-PCR ([facility])2019-09-30 17:15:00 Test Item Value Reference Range Interpretation Comments SARS-COV2/RT-PCR (test Negative Not Detected, Negative, code = 7105676) See external report for linked test SARS-COV-2 PERFORMING LAB [facility] (test code = 3143664) Negative result for this test determines that [...] 564(g) of the Act.Fact Sheet for Healthcare Providers:https://www.[employer]/sites/default/files/product/documents/Fact_Shee r_UU_Ckuifsqzu_Nfya_OLLD-MmW-3.pdfFact Sheet for Healthcare Patients:https://www.[employer]/sites/default/files/product/ documents/Lyox_Feyvq_Ykvxvvdb_Jfxk_CJJZ-BrM-9.pdfPerforming Laboratory:[place] [address], [place] [address]BHBN (single breath diffusion)2019-09-30 14:22:00Dandy Duran, OMARI, CHILD CARE COUNSELOR 09/30/2019 4:18 [facility] PFT CHARTING REPORT Infection Control/Hand Hygiene procedures followed throughout the encounter with patient: YesPatient Identification Method: Patient name verified on armband, and Medical record on armband, Is the order complete?: Yes Account ID#: [id number] Name: Ana Saunders Birthdate: 1955 Age: 64 [...] 09/30/2019 09/30/2019 09/30/2019 Pulse 54 78 71 [id number] Study Date: 09/30/19 Study Time: 1421 ASSESSMENT History & Physical Modeof Arrival: Wheel [...] patient released from the lab without adverse outcome.[facility] Pulmonary Funct Lab [id number] 14:22:00Dandy Duran, OMARI, CHILD CARE COUNSELOR 09/30/2019 4:18 [facility] PFT CHARTING REPORT Infection Control/Hand Hygiene procedures followed throughout the encounter with patient: YesPatient Identification Method: Patient name verified on armband, and Medical record on armband, Is the order complete?: Yes Account ID#: [id number] Name: Ana Saunders Birthdate: 1955 Age: 64 [...] 09/30/2019 09/30/2019 09/30/2019 Pulse 54 78 71 [id number] Study Date: 09/30/19 Study Time: 1421 ASSESSMENT History & Physical Modeof Arrival: Wheel [...] patient released from the lab without adverse outcome.[facility] CenterLung [id number] 14:22:00Dandy Duran, OMARI, CHILD CARE COUNSELOR 09/30/2019 4:18 [facility] PFT CHARTING REPORT Infection Control/Hand Hygiene procedures followed throughout the encounter with patient: YesPatient Identification Method: Patient name verified on armband, and Medical record on armband, Is the order complete?: Yes Account ID#: [id number] Name: Ana Saunders Birthdate: [birth year] Age: 64 [...] 09/30/2019 09/30/2019 09/30/2019 Pulse 54 78 71 [id number] Study Date: 09/30/19 Study Time: [...] patient released from the lab without adverse outcome.[facility] CenterCarbohydrate antigen 19-9 (CA 19-9) 2019-09-30 14:08:00 Test Item Value Reference Range Interpretation Comments CA 19-9 12 U/mL <34 This test was (test code = performed using the 07906-6) Siemens Chemiluminescen t method.Values o btained from different assay methods cannot be used interchangeably .CA19-9 levels, regardl ess of value, should n ot be interpreted as absoluteevidenc e of the presence or abs ence of disease. RAFAEL (test Performing Lab code = RAFAEL) [facility] [employer] [facility] [address] [place] [address] Jacqueline Taylor MD, PhD, TIMOTEO [facility] CenterTISSUE [id number] 11:59:00Surgical Pathology Report Case: [id number] Authorizing Provider: Marilee Lane MD Collected: 09/29/2019 11:20 AM Ordering Location: [address] Received: 09/29/2019 01:57 PM Service Pathologist: Binu Magallon MD Specimen: Rectum, rectal bx PART A RECTAL BIOPSY:FOCALLY ACTIVE NONSPECIFIC COLITIS.NEGATIVE FOR GRANUMOLAS, DYSPLASIA, OR INVASIVE CARCINOMA. Signing Pathologist Direct Phone Line: [phone] signed by Binu Magallon MD on 09/30/2019 at 11:59 [id number] Rectum, description rectal biopsy One specimen is received inone part labeled with the patient's name and MR number corresponding to the requisition with the same information.Received in formalin labeled "rectum" are two conti-pink irregular pieces of tissue measuring 0.2 x 0.2 x 0.1 cm and 0.3 x 0.2 x 0.2 cm. The specimen is submitted entirely in cassette A1. MA/ewPERFORMED. [facility], Department of Pathology, [address] [place] [address], EglxxlVA [facility], [address] [place] [address], LcdujsVA [facility], [facility]ology, [address] [place] [address], LTFUUT [id number] 08:35:00Surgical Pathology Report Case: [id number] Authorizing Provider: Vandana Cuenca MD Collected: 09/24/2019 01:15 PM Ordering Location: [address] Received: 09/24/2019 04:15 PM Service Pathologist: [...] to assess the need for germline testing.CPT CODE:[id number] electronically signed by Hilda Tran MD on 09/30/2019 at8:35 AMA. DUODENAL STRICTURE, BIOPSY: - ADENOCARCINOMA, PREDOMINANTLY IN LYMPHOVASCULAR SPACES - POSSIBILITY OF METASTASIS SHOULD BE EXCLUDED (SEE COMMENT) Signing Pathologist Direct Phone Line: [phone] signed by Hilda Tran MD on 09/26/2019 [...] GI tract (or) from pancreas should be excluded.[id number] hemorrhage Duodenum, description duodenal stricture biopsy One [...] evaluated Immunohistochemistry technical testing was performed at [facility], Pathology Laboratory where it was developed [...] MD SAVAGE YOCHAI ([id number]) on 09/29/2019 6:07:21 [facility])2019-09-29 10:06:00 Test Item Value Reference Range Interpretation Comments SARS-COV2/RT-PCR (test Negative Not Detected, Negative, code = 2688869) See external report for linked test SARS-COV-[address] [facility] (test code = 2272108) Negative result for this test determines that [...] 564(g) of the Act.Fact Sheet for Healthcare Providers:https://www.[employer]/sites/default/files/product/documents/Fact_Shee t_BS_Kufuxquhz_Limg_BURN-QzH-3.pdfFact Sheet for Healthcare Patients:https://www.[employer]/sites/default/files/product/ documents/Ugba_Uiwjs_Unjolpsq_Hiiq_KMAN-KeJ-5.pdfPerforming Laboratory:[facility], [place] [address]UGV 12 [id number] 07:40:29Interface, External Ris In - 09/29/2019 7:40 AM CDTVentricular Rate 54 BPMAtrial Rate 54 BPMP-R Interval 220 msQRS Duration 86 msQ-T Interval 428 msQTC Calculation(Bazett) 405 msP Oxford 66 degreesR Oxford 32 degreesT Oxford 59 degreesSinus bradycardia with 1st degree A-V blockAnteroseptal infarct , age und eterminedAbnormal ECGWhen compared with ECG of 27 Jun 2018 02:47,No significant change was foundConfirmed by Funmilayo STEVE MICHAEL (150) on 09/29/2019 7:40:27 [facility] CenterElectrolytes2020-08-23 11:52:00 Test Item Value Reference Range Interpretation Comments Sodium (test code = 134 meq/L 136-145 L 2951-2) Potassium (test code = 3.9 meq/L 3.5-5.1 2823-3) Chloride (test code = 104 meq/L 98-107 2075-0) CO2 (test code = 8-9) 23 meq/L 22-29 RAFAEL (test code = RAFAEL) Skin Care Therapist ID - YVETTE Erickson Lab Interpretation (test Abnormal code = 59085-0) [facility] CenterELECTROLYTES2020-08-23 11:52:00 Test Item Value Reference Range Interpretation Comments SODIUM (BEAKER) (test code = 381) 134 meq/L 136-145 L POTASSIUM (BEAKER) (test code = 3.9 meq/L 3.5-5.1 379) CHLORIDE (BEAKER) (test code = 382) 104 meq/L 98-107 CO2 (BEAKER) (test code = 355) 23 meq/L 22-29 Skin Care Therapist VIRGEN - YVETTE MBASIC METABOLIC [id number] 13:40:00 Test Item Value Reference Range Interpretation [...] 1092) DATA TO CALCULA TE ESTIMATED GFR. Skin Care Therapist ID - YVETTE [facility] W/PLT COUNT & AUTO [id number] 09:53:00 Test Item Value Reference Range Interpretation [...] (test code = 2801) CT, CHEST, WITH [id number] 22:43:00Unlisted Reason for Exam - Click Yes [...] MDReport Verified Date/Time: 09/26/2019 22:43:45 Reading Location: [address] Transitional Reading Room CT, [id number] 22:43:00Per panc protocolReason for exam:->evaluation of duodenal [...] represent atelectasis and/or pneumonia. Signed: Cedrick Jaimes [facility] Verified Date/Time: 09/26/2019 22:43:45 Reading Location: [facility] B1 C013T Transitional Reading Room CT abdomen/pelvis without & with IV [id number] 22:43:00 Interface, External Ris In - 09/26/2019 [...] MDReport Verified Date/Time: 09/26/2019 22:43:45 Reading Location: [address] Transitional [facility] 2019-09-26 22:43:00Interface, External [...] MDReport Verified Date/Time: 09/26/2019 22:43:45 Reading Location: [address] Reading [facility] DiegoPET[facility], CARDIAC PERF REST AND [id number] 15:20:00 Reason for exam:->preopFINAL REPORT PROCEDURE: MYOCARDIAL PERFUSION PET/CT IMAGING (Rest/Stress)CPT CODE: 11281, 01406 INDICATION: Preop risk stratification CARDIOVASCULAR PROFILE:CAD History: KS, stentSymptoms: NoneRisk Factors: Hypertension, hyperlipidemia, tobaccoBMI: 23.2Medications: [...] prior study for comparison. Signed: Sinan Abdi Verified Date/Time: 09/26/2019 15:20:15 Reading Location: [address] Reading Room [place] Myocardial Perfusion Pet/CT (Rest & Stress)2019-09-26 15:20:00Interface, External Ris In - 09/26/2019 3:22 PM CDTFINAL REPORT PROCEDURE: MYOCARDIAL PERFUSION PET/CT IMAGING (Rest/Stress)CPT CODE: 14242, 80317 INDICATION: Preop risk stratifi cation CARDIOVASCULAR PROFILE:CAD History: KS, stentSymptoms: NoneRisk Factors: Hypertension, hyperlipidemia, tobaccoBMI: 23.2Medications: [...] no prior study for comparison. Signed:Sinan Abdi Verified Date/Time: 09/26/2019 15:20:15 Reading Location: [address] [facility] 14:30:00 Test Item Value Reference Range Interpretation Comments Potassium (test code = 3.4 meq/L 3.5-5.1 L 2823-3) RAFAEL (test code = RAFAEL) Skin Care Therapist ID - NTP Lab Interpretation (test Abnormal code = 00575-2) [facility] Farm[facility]SI[facility]2020-[facility] 14:30:00 Test Item Value Reference Range Interpretation Comments POTASSIUM (BEAKER) (test code = 3.4 meq/L 3.5-5.1 L 379) Skin Care Therapist ID - NTP2D Echo W/Doppler(CW/PW/Color)2019-09-26 12:55:04Ejection FractionSLEH ECHO HEARTLAB MKCKESSON CPACSInterface, External Ris In - 09/26/2019 12:55 PM CDTTransthoracic Echocardiography Report (TTE) Demographics Patient Name AAN SAUNDERS Date of Study 09/26/2019 Gender Male Visit Number [id number] Race Unknown Room Number 922 Number Date of 1955 Referring Physician Adriel Lamb Age 64 year(s) Distance Education Director Robyn Ramos [facility] Interpreting Rasheed Juares MD Physician Procedure Type [...] CO: 5.23 l/min LVOT CI: 3.02 l/min/m^2 [facility] Center[facility]arcinoembryonic Antigen (CEA)2019-09-25 19:13:00 Test Item Value Reference Range Interpretation Comments CEA, SERUM (test code = 5.5 ng/mL 0-5 H 2038-07) RAFAEL (test code = RAFAEL) Skin Care Therapist ID - DB Lab Interpretation (test Abnormal code = 21534-1) [facility] CenterCARCINOEMBRYONIC ANTIGEN (CEA)2019-09-25 19:13:00 Test Item Value Reference Range Interpretation Comments CARCINOEMBRYONIC ANTIGEN (BEAKER) 5.5 ng/mL 0.0-5.0 H (test code = 685) Skin Care Therapist ID - DBCT, [id number] 13:21:00Oral contrast as wellUnlisted Reason for Exam - Click Yes and Enter Reason Below->YesUnlisted Reason for Exam->duodenal stricture around D4Ahtrfdio BeginsREPORT STATUS:A Addendum: Wall thickening is seen involving the descending duodenum. Please correlate clinically. Signed: Lyle Fierro MDReport Verified Date/Time: 09/25/2019 13:21:39 Reading Location: [address] Body Reading RoomAddendum EndsFINAL REPORT ABDOMINAL AND PELVIS CT DATED 09/25/2019 CLINICAL INFORMATION: Unlisted Reason for ExamAbdominal distension TECHNIQUE: Axial images of the abdomen and pelvis were obtained from diaphragm to the pubic symphysis with GI and intravenous contrast. This exam was performed according toour departmental dose-optimization program, which includes automated exposure [...] MDReport Verified Date/Time: 09/25/2019 10:51:28 Reading Location: [facility] C0Y CT Body Reading Room CT abdomen/pelvis with IV [id number] 10:51:00 Interface, External Ris In - 09/25/2019 1:23 PM CDTAddendum BeginsREPORT STATUS:A Addendum: Wall thickening is seen involving the descending duodenum. Please correlate clinically. Signed: Lyle Fierro MDReport Verified Date/Time: 09/25/2019 13:21:39 Reading Location: [facility] C013Y CT Body Reading RoomAddendum EndsFINAL REPORT [...] MDReport Verified Date/Time: 09/25/2019 10:51:28 Reading Location: [address] Body Reading Room [facility] Diego[facility]NESIUM2020-08-20 06:13:00 Test Item Value Reference Range Interpretation Comments MAGNESIUM (BEAKER) (test code = 1.6 mg/dL 1.6-2.6 627) Skin Care Therapist ID - TALHA WBASIC METABOLIC [id number] 06:13:00 Test Item Value Reference Range Interpretation [...] 1092) DATA TO CALCULA TE ESTIMATED GFR. Skin Care Therapist ID - TALHA WCBC W/PLT COUNT & AUTO [id number] 05:32:00 Test Item Value Reference Range Interpretation [...] 0-1 PERCENT (BEAKER) (test code = 2801) [id number] 11:31:00 Test Item Value Reference Range Interpretation Comments POTASSIUM (BEAKER) (test code = 3.4 meq/L 3.5-5.1 L 379) Skin Care Therapist ID - NTPBASIC METABOLIC [id number] 06:18:00 Test Item Value Reference Range Interpretation [...] 1092) DATA TO CALCULA TE ESTIMATED GFR. Skin Care Therapist ID - YVETTE [id number] 06:15:00 Test Item Value Reference Range Interpretation Comments MAGNESIUM (BEAKER) (test code = 1.7 mg/dL 1.6-2.6 627) Skin Care Therapist ID - YVETTE MCBC W/PLT COUNT & AUTO [id number] 06:06:00 Test Item Value Reference Range Interpretation [...] PERCENT (BEAKER) (test code = 2801) SARS-COV2/RT-PCR ([facility])2019-09-23 18:26:00 Test Item Value Reference Range Interpretation Comments SARS-COV2/RT-PCR (test Negative Not Detected, Negative, code = 3371235) See external report for linked test SARS-COV-[address] [facility] (test code = 9599385) Negative result for this test determines that [...] 564(g) of the Act.Fact Sheet for Healthcare Providers:https://www.Basecampidel.com/sites/default/files/product/documents/Fact_Shee r_KV_Rrlyerfaf_Yqsr_EXQC-IlD-5.pdfFact Sheet for Healthcare Patients:https://www.Training Intelligence.com/sites/default/files/product/ documents/Busp_Wmwmr_Iymrkdgr_Zger_TNCY-SaU-9.pdfPerforming Laboratory:[facility], [place] [address]Ngecvefj4290-86-24 15:48:00 Test Item Value Reference Range Interpretation Comments Ferritin (test code = 167.29 ng/mL 5-275 2276-4) RAFAEL (test code = RAFAEL) Skin Care Therapist ID - EDASI Lab Interpretation (test Normal code = 80285-0) [facility] CenterFERRITIN2020-08-18 15:48:00 Test Item Value Reference Range Interpretation Comments FERRITIN (BEAKER) (test code = 167.29 ng/mL 5.00-275.00 361) Skin Care Therapist ID - EDASIIron, TIBC, % sat. (without ferritin)2019-09-23 15:27:00 Test Item Value Reference Range Interpretation Comments Iron (test code = 2498-4) 43.0 ug/dL 40-160 TIBC (test code = 2500-7) 123 ug/dL 250-450 L Iron % Saturation (test 35 % 20-55 code = 2502-3) RAFAEL (test code = RAFAEL) Skin Care Therapist ID - EDASI Lab Interpretation (test Abnormal code = 67572-0) [facility] CenterIRON, TIBC, % SAT. (WITHOUT FERRITIN)2019-09-23 15:27:00 Test Item Value Reference Range Interpretation Comments IRON (BEAKER) (test code = 547) 43.0 ug/dL 40.0-160.0 TOTAL IRON BINDING CAPACITY 123 ug/dL 250-450 L (BEAKER) (test code = 769) IRON % SATURATION (2) (BEAKER) 35 % 20-55 (test code = 2590) Skin Care Therapist ID - EDASIBASIC METABOLIC [id number] 07:21:00 Test Item Value Reference Range Interpretation [...] 1092) DATA TO CALCULA TE ESTIMATED GFR. Skin Care Therapist ID - EDASILipid [id number] 06:59:00 Test Item Value Reference Range Interpretation Comments Triglycerides (test 164 mg/dL code = 2571-8) Cholesterol (test code 142 mg/dL = 2093-3) HDL (test code = 23 mg/dL 2085-9) LDL Calculated (test 86 mg/dL code = 45045-3) RAFAEL (test code = RAFAEL) Triglyceride Reference Range: Low Risk <150 Borderline 150-199 High Risk 200-499 Very High Risk >=500 Cholesterol Reference Range: Low Risk <200 Borderline 200-239 High Risk >240 HDL Cholesterol Reference Range: Low Risk >=60 High Risk <40 LDL Cholesterol Reference Range: Optimal <100 Near Optimal 100-129 Borderline 130-159 High 160-189 Very High >=190 Skin Care Therapist ID - ADAM [facility] CenterMAGNESIUM2020-08-18 06:59:00 Test Item Value Reference Range Interpretation Comments MAGNESIUM (BEAKER) (test code = 1.9 mg/dL 1.6-2.6 627) Skin Care Therapist ID - EDASILIPID [id number] 06:59:00 Test Item Value Reference Range Interpretation [...] Borderline 130-159 High 160-189 Very High >=190 Skin Care Therapist ID - ADAMLilia [id number] 06:45:00 Test Item Value Reference Range Interpretation Comments Troponin I (test code = 0.02 ng/mL 0-0.03 86216-3) RAFAEL (test code = RAFAEL) Troponin I [...] EDASI Lab Interpretation (test Normal code = 37450-7) [facility] [id number] 06:45:00 Test Item Value Reference Range Interpretation [...] failure, acidosis, acute neurological disease, and persistent tachyarrhythmia.Skin Care Therapist ID - EDASICBC W/PLT COUNT & AUTO [id number] 06:19:00 Test Item Value Reference Range Interpretation [...] (BEAKER) (test code = 2801) Comprehensive metabolic [id number] 15:40:00 Test Item Value Reference Range Interpretation Comments Protein, Total (test 7.7 See_Comment [Autom ated code = 2885-2) message] The system which generated this result transmit marisela reference range : 6.0 - 8.3 gm/dL . The reference range was not u sed to interpret th is result as normal/abnormal . Albumin (test code = 3.7 g/dL 3.5-5 14771-0) Alkaline Phosphatase 99 U/L 40-150 (test code = 6768-6) Total Bilirubin (test 0.5 mg/dL 0.2-1.2 code = 1975-2) Sodium (test code = 134 meq/L 136-145 L 2951-2) Potassium (test code 3.0 meq/L 3.5-5.1 L = 2823-3) Chloride (test code = 90 meq/L 98-107 L 5-0) CO2 (test code = 25 meq/L -2027-9) BUN (test code = 16 mg/dL 7-21 3094-0) Creatinine (test code 1.01 mg/dL 0.57-1.25 = 2160-0) Glucose (test code = 72 mg/dL 70-105 2345-7) Calcium (test code = 9.8 mg/dL 8.4-10.2 75849-1) AST (test code = 15 U/L 5-34 1920-8) ALT (test code = 9 U/L 6-55 1742-6) EGFR (test code = [place] [address]-7) CLINICAL DATA T O CALCULATE ESTIMATED GFR. RAFAEL (test code = RAFAEL) Skin Care Therapist ID - DONIS C Lab Interpretation Abnormal (test code = 84132-7) [facility] CenterCOMPREHENSIVE METABOLIC [id number] 15:40:00 Test Item Value Reference Range Interpretation [...] = 382) CO2 (BEAKER) (test 25 meq/L - code = 355) BLOOD UREA NITROGEN 16 mg/dL 7- (BEAKER) (test code = 354) CREATININE (BEAKER) [...] 1092) DATA TO CALCULA TE ESTIMATED GFR. Skin Care Therapist ID - DONIS [id number] 15:27:00 Test Item Value Reference Range Interpretation Comments Lipase (test code = 107 U/L 8-78 H 3040-3) RAFAEL (test code = RAFAEL) Skin Care Therapist ID - DONIS C Lab Interpretation (test Abnormal code = 15497-2) [facility] CenterLIPASE2020-08-11 15:27:00 Test Item Value Reference Range Interpretation Comments LIPASE (BEAKER) (test code = 749) 107 U/L 8-78 H Skin Care Therapist ID - DONIS CPT/[id number] 15:21:00 Test Item Value Reference Interpretation Comments Range Protime (test code = 14.1 See_Comment [Autom ated 5902-2) message] The system which generated this result transmitted reference range : 11.9 - 14.2 seconds. The reference range was not used to interpret this result as normal/abnormal . INR (test code = 1.12 See_Comment [Automated 1881-6) message] The system which generated this result transmitted reference range : <=5.90. The reference range was not used to interpret this result as normal/abnormal . PTT (test code = 39.8 See_Comment H [Automated 16297-4) message] The system which generated this result transmitted reference range : 22.5 - 36.0 seconds. The reference range was not used to interpret this result as normal/abnormal . RAFAEL (test code = Effective 2018: RAFAEL) PT Reference Range ChangeNew: 11.9-14.2 Previous: 11.7-14.7 RECOMMENDED COUMADIN/WARFARIN INR THERAPY RANGESSTANDARD DOSE: 2.0-3.0 Includes: PROPHYLAXIS for venous thrombosis, systemic embolization; TREATMENT for venous thrombosis and/or pulmonary embolus.HIGH RISK: Target INR is 2.5-3.5 for patients wiht mechanical heart valves. Lab Interpretation Abnormal (test code = 30387-2) [facility] CenterPT/[id number] 15:21:00 Test Item Value Reference Range Interpretation [...] mechanical heart valves.CBC W/PLT COUNT & AUTO [id number] 15:16:00 Test Item Value Reference Range Interpretation [...] = 2801) CBC W/PLT COUNT & AUTO [id number] 08:52:00 Test Item Value Reference Range Interpretation [...] (BEAKER) (test code = 2801) BASIC METABOLIC [id number] 06:41:00 Test Item Value Reference Range Interpretation [...] ESTIMATED GFR. CBC W/PLT COUNT & AUTO [id number] 20:31:00 Test Item Value Reference Range Interpretation [...] = 2801) CBC W/PLT COUNT & AUTO [id number] 09:40:00 Test Item Value Reference Range Interpretation [...] (BEAKER) (test code = 2801) BASIC METABOLIC [id number] 06:50:00 Test Item Value Reference Range Interpretation [...] ESTIMATED GFR. CBC W/PLT COUNT & AUTO [id number] 23:23:00 Test Item Value Reference Range Interpretation [...] = 2801) CBC W/PLT COUNT & AUTO [id number] 10:14:00 Test Item Value Reference Range Interpretation [...] (BEAKER) (test code = 2801) BASIC METABOLIC [id number] 06:07:00 Test Item Value Reference Range Interpretation [...] m DATA TO CALCULA TE ESTIMATED GFR. [id number] 05:59:00 Test Item Value Reference Range Interpretation [...] Can do this with the next CBCPROTHROMBIN TIME/[id number] 05:10:00 Test Item Value Reference Range Interpretation [...] PERCENT (BEAKER) (test code = 2801) TROPONIN [id number] 17:24:00 Test Item Value Reference Range Interpretation [...] = 2801) CBC W/PLT COUNT & AUTO [id number] 10:51:00 Test Item Value Reference Range Interpretation [...] PERCENT (BEAKER) (test code = 2801) TISSUE [id number] 08:07:00Surgical Pathology Report Case: [id number] Authorizing Provider: Marilee Lane MD Collected: 06/27/2018 1124 Ordering Location: [place] [address] ICU Received: 06/27/2018 1528 Pathologist: Binu Magallon MD Specimen: Biopsy, Gastric, random gastric body and antrum PART A RANDOM GASTRIC BIOPSY:ANTRAL MUCOSA WITH FOCALLY ACTIVE CHRONIC GASTRITIS.OXYNTIC MUCOSA WITH MILD CHRONIC IN ACTIVE GASTRITIS.NEGATIVE FOR INTESTINAL METAPLASIA, DYSPLASIA, OR INVASIVE CARCINOMA.HELICOBACTER ORGANISMS ARE IDENTIFIED ON WARTHIN STARRY SPECIAL STAIN. Signing Pathologist Direct Phone Line: [phone] signed by Binu Magallon MD on 06/28/2018 at 8:07 [id number], [id number] and postop diagnosis: melenaBiopsy, gastric, random gastric body and antrumReceived in formalin labeled with the patient's name, accession number and "biopsy, gastric" are four irregular cotni soft tissue fragments ranging 0.2-0.4 cm which [...] evaluated Immunohistochemistry technical testing was performed [facility] where it was developed [...] Can do this with the next CBCPROTHROMBIN TIME/[id number] 04:34:00 Test Item Value Reference Range Interpretation Comments PROTIME (BEAKER) (test code = 14.2 seconds 11.7-14.7 759) INR (BEAKER) (test code = 370) 1.2 <=5.9 RECOMMENDED COUMADIN/WARFARIN INR THERAPY RANGESSTANDARD DOSE: 2.0 - 3.0 Includes: PROPHYLAXIS forvenous thrombosis, systemic embolization; TREATMENT for venous thrombosis and/or pulmonary embolus.HIGH RISK: Target INR is 2.5-3.5 for patients with mechanical heart valves.BASIC METABOLIC [id number] 04:29:00 Test Item Value Reference Range Interpretation [...] ESTIMATED GFR. CBC W/PLT COUNT & AUTO [id number] 23:50:00 Test Item Value Reference Range Interpretation [...] PERCENT (BEAKER) (test code = 2801) TROPONIN [id number] 14:18:00 Test Item Value Reference Range Interpretation [...] acidosis, acute neurological disease, and persistent tachyarrhythmia.RETICULOCYTE [id number] 03:26:00 Test Item Value Reference Range Interpretation Comments RETICULOCYTE COUNT PCT (BEAKER) (test 2.8 % 0.5-1.8 H code = 575) RAD, CHEST, 1 VIEW, NON [id number] 03:04:00Reason for exam:->gibShould this be performed at the bedside?->YesFINAL REPORT History: GI bleed. Comparison: None. Findings: A single view ofthe chest is submitted. The cardiomediastinal contours are unremarkable. The lung volumes are low. There is no focal consolidation, pneumothorax, large pleural effusion or evidence of overt pulmonary edema. There is no acute bony abnormality. Signed: Alejandrina Marrufo MDReport Verified Date/Time: 06/27/2018 03:04:43 Reading Location: [address] Reading Room COMPREHENSIVE METABOLIC PANEL 2018-06-27 [...] DATA T O CALCULATE ESTIM ATED GFR. [id number] 02:43:00 Test Item Value Reference Range Interpretation [...] 2.5-3.5 for patients with mechanical heart valves.PROTHROMBIN TIME/[id number] 02:42:00 Test Item Value Reference Range Interpretation Comments PROTIME (BEAKER) (test code = 15.1 seconds 11.7-14.7 H 759) INR (BEAKER) (test code = 370) 1.3 <=5.9 RECOMMENDED COUMADIN/WARFARIN INR THERAPY RANGESSTANDARD DOSE: 2.0 - 3.0 Includes: PROPHYLAXIS forvenous thrombosis, systemic embolization; TREATMENT for venous thrombosis and/or pulmonary embolus.HIGH RISK: Target INR is 2.5-3.5 for patients with mechanical heart valves.LACTIC ACID, [id number] 02:39:00 Test Item Value Reference Range Interpretation Comments LACTATE BLOOD VENOUS (2) (BEAKER) 0.9 mmol/L 0.5-2.2 (test code = 2872) CBC W/PLT COUNT & AUTO [id number] 02:25:00 Test Item Value Reference Range Interpretation [...]
[2020-08-17] MEDS ORDERED: NA CHLORIDE 0.9% 1,000 ML ONE (16:26)
[2020-08-17] MEDS ORDERED: ACETAMINOPHEN 500 MG TAB ONE (16:26)
[2020-08-17] MEDS ORDERED: NA CHLORIDE 0.9% 500 ML ONE (16:26)
[2020-08-17 17:00] LABS: Absolute Lymphocytes (CBC) 1.2 K/uL (0.7-4.9); Basophils % 0.4 % (0-1.3); Hematocrit 28.4 % (39.6-49.0); Lymphocytes % 6.7 % (15.3-44.8); RBC Red Blood Cell Count 3.03 M/uL (4.33-5.43)
--- NOTE | 2020-08-17 17:08 | RAD REPORT ---
EXAM DESCRIPTION: RAD - Chest Single View - 08/17/2020 4:58 pm CLINICAL HISTORY: FEVER COMPARISON: Chest Single View dated 12/25/2019; Chest Single View dated 09/22/2019; Chest Single View dated 06/26/2018; Chest Single View dated 07/18/2015; Chest Abdomen Pelvis W Cont dated 06/14/2020; [facility] st Abdomen Pelvis W Cont dated 03/15/2020 FINDINGS: There is some coarsening of the pulmonary interstitium which is nonspecific but new from p rior. The heart size is within normal limits.No acute osseous abnormality. No significant pleural eff usions or pneumothorax. Right subclavian approach catheter tubing. IMPRESSION: Increased prominence of the pulmonary interstitium could reflect a nonspecific infectiou s or inflammatory process. No consolidative pneumonia or pulmonary edema identified.
[2020-08-17 17:14] LABS: Protime INR 1.28
[2020-08-17 17:17] LABS: Urine Blood 2+ (Negative); Urine Glucose Negative (Negative); Urine Protein 1+ (Negative); Urine Specific Gravity 1.015 (1.005-1.030)
[2020-08-17 17:19] LABS: ALT/SGPT 37 U/L (12-78); AST/SGOT 35 U/L (15-37); Albumin 2.7 g/dL (3.4-5.0); Alkaline Phosphatase 182 U/L (45-117); BUN Blood Urea Nitrogen 8 mg/dL (7-18); Bicarbonate 20 mmol/L (21-32); Bilirubin Direct 0.2 mg/dL (0-0.2); Bilirubin Total 0.7 mg/dL (0.2-1.0); Creatine Phosphokinase 22 U/L (39-308); Glucose Level 118 mg/dL (74-106); Lipase 22 U/L (73-393); Potassium 3.1 mmol/L (3.5-5.1); Protein, Total 6.7 g/dL (6.4-8.2); Sodium Level 135 mmol/L (136-145); Troponin (Emerg Dept Use Only) < 0.02 ng/mL (0.0-0.045)
[2020-08-17] MEDS ORDERED: CEFEPIME/SWI 1gm 10 ML ONE (17:24)
[2020-08-17 17:25] LABS: White Blood Cell Scan OK (OK)
[2020-08-17 17:26] LABS: Blood Morphology Comment NOT SEEN (NOT SEEN); Platelet Estimate DECR
[2020-08-17 17:44] LABS: Urine Bacteria <20 /HPF (NONE SEEN); Urine Mucus HEAVY /HPF (NONE SEEN)
--- NOTE | 2020-08-17 18:24 | EDPHYS ---
Physician Documentation [facility] Name: Mp Moreno Age: 65 yrs Sex: Male : 1955 Arrival Date: 08/17/2020 Time: 14:45 Bed 20 Private MD: NEISHA BAXTER ED Physician Ezequiel Blake HPI: 08/17 16:00 This 65 yrs old Male presents to ER via Wheelchair with complaints of 104 cp Fever. 16:00 The patient reports fever, that was measured at 104 degrees Fahrenheit. cp 16:00 Onset: The symptoms/episode began/occurred yesterday. Associated signs and symptoms: cp Pertinent negatives: abdominal pain, chest pain, cough, diarrhea, runny nose, skin rash, vomiting. Patient [facility] and was referred to ED to be evaluated for fever. 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 Historical: - Allergies: 15:01 NKDA; hb - PMHx: 15:01 Hypertension; High Cholesterol; Hyperlipidemia; Kidney stones; Myocardial infarction; hb PUD; - Immunization history:: Adult Immunizations up to date, Client reports receiving the 2nd dose of the Covid vaccine. - Social history:: Smoking status: Patient denies any tobacco usage or history of. ROS: 16:05 Constitutional: Positive for fever, Negative for body aches, chills, poor PO intake. cp 16:05 Eyes: Negative for injury, pain, redness, and discharge. cp 16:05 ENT: Negative for ear pain, sore throat, difficulty swallowing, difficulty handling secretions. 16:05 Cardiovascular: Negative for chest pain, edema, palpitations. 16:05 Respiratory: Negative for cough, shortness of breath, wheezing. cp 16:05 Abdomen/GI: Negative for abdominal pain, nausea, vomiting, and diarrhea, black/tarry stool, rectal bleeding. 16:05 : Negative for urinary symptoms. 16:05 Skin: Negative for cellulitis, rash. 16:05 Neuro: Negative for altered mental status, headache, weakness. 16:05 All other systems are negative. Exam: 16:10 Constitutional: The patient appears in no acute distress, alert, awake, cp non-diaphoretic, non-toxic, well developed, well nourished, febrile. 16:10 Head/Face: Normocephalic, atraumatic. cp 16:10 Eyes: Periorbital structures: appear normal, Conjunctiva: normal, no exudate, no injection, Sclera: no appreciated abnormality, Lids and lashes: appear normal, bilaterally. 16:10 ENT: External ear(s): are unremarkable, Nose: is normal, Mouth: Lips: moist, Oral mucosa: moist, Posterior pharynx: Airway: no evidence of obstruction, patent, Voice: is normal. 16:10 Neck: ROM/movement: is normal, is supple, without pain, no range of motions limitations, no meningismus. 16:10 Chest/axilla: Inspection: normal, Palpation: is normal, no crepitus, no tenderness. 16:10 Cardiovascular: Rate: tachycardic, Rhythm: regular, Edema: is not appreciated, JVD: is not appreciated. 16:10 Respiratory: the patient does not display signs of respiratory distress, Respirations: normal, no use of accessory muscles, no retractions, labored breathing, is not present, Breath sounds: are clear throughout, no decreased breath sounds, no stridor, no wheezing. 16:10 Abdomen/GI: Inspection: abdomen appears normal, Bowel sounds: active, all quadrants, Palpation: abdomen is soft and non-tender, in all quadrants. 16:10 Back: pain, is absent, ROM is normal. 16:10 Skin: cellulitis, is not appreciated, no rash present. 16:10 Neuro: Orientation: to person, place \T\ time. Mentation: is normal, Cerebellar function: is grossly normal, Motor: moves all fours, strength is normal, Sensation: is normal. 16:23 ECG was reviewed by the Attending Physician. cp Vital Signs: 14:59 BP 124 / 72; Pulse 112; Resp 20; Temp 102.7(TE); Pulse Ox 98% on R/A; Weight 55.34 kg; hb Height 5 ft. 7 in. (170.18 cm); Pain 0/10; 18:02 BP 128 / 70; Pulse 99; Resp 18; Temp 99.9(O); Pulse Ox 100% ; ld1 19:43 BP 119 / 78; Pulse 88; Resp 18; Temp 97.9(O); Pulse Ox 100% on R/A; Pain 0/10; ld1 14:59 Body Mass Index 19.11 (55.34 kg, 170.18 cm) hb MDM: 15:46 Patient medically screened. 18:00 Data reviewed: vital signs, nurses notes, lab test result(s), EKG, radiologic studies, cp plain films. 18:00 Test interpretation: by ED physician or midlevel provider: ECG, plain radiologic cp studies. 18:22 Physician consultation: Archie Blunt MD was called at 18:22, was contacted at 18:22, cp regarding admission, to the medical/surgical unit. patient's condition, and will see patient in inpatient room, tomorrow. 08/17 15:57 Order name: Basic Metabolic Panel 08/17 15:57 Order name: Blood Culture Adult (2); Complete Time: 17:31 08/17 15:57 Order name: CBC with Diff; Complete Time: 17:54 08/17 17:18 Interpretation: Normal except: WBC 18.40; RBC 3.03; HGB 9.3; HCT 28.4; MCV 93.9; PLT cp 60; RDW 18.5; JAGJIT% 83.5; LYM% 6.7; NEUT A 15.4; MNA 1.7. 08/17 15:57 Order name: CPK; Complete Time: 17:24 08/17 15:57 Order name: LFT's; Complete Time: 17:24 08/17 17:25 Interpretation: Normal except: ALK 182; ALB 2.7; GLOB 4.0; A/G 0.7. 08/17 15:57 Order name: Lactate; Complete Time: 17:54 08/17 17:55 Interpretation: Abnormal: LAC 2.5. 08/17 15:57 Order name: Lipase; Complete Time: 17:24 08/17 15:57 Order name: Procalcitonin; Complete Time: 17:54 08/17 17:55 Interpretation: Abnormal: Procalcitonin 1.03. 08/17 15:57 Order name: Protime (+inr); Complete Time: 17:24 08/17 15:57 Order name: Ptt, Activated; Complete Time: 17:24 08/17 15:57 Order name: Troponin (emerg Dept Use Only); Complete Time: 17:24 08/17 17:25 Interpretation: Within normal limits: TROPED < 0.02. 08/17 15:57 Order name: Urine Microscopic Only; Complete Time: 17:54 08/17 17:55 Interpretation: Normal except: UWBC 5-10; URBC 10-20. 08/17 15:57 Order name: Influenza Screen (a \T\ B); Complete Time: 17:17 08/17 15:57 Order name: Chest Single View XRAY; Complete Time: 17:17 08/17 15:58 Order name: Basic Metabolic Panel; Complete Time: 17:24 [facility] 08/17 17:25 Interpretation: Normal except: NA 135; K 3.1; CO2 20; GLUC 118; CA 7.5. 08/17 16:33 Order name: Glucose, Ancillary Testing [facility] 08/17 17:16 Order name: Urine Dipstick-Ancillary; Complete Time: 17:24 [facility] 08/17 17:26 Order name: CBC Smear Scan; Complete Time: 17:54 [facility] 08/17 17:47 Order name: Urine Culture [facility] 08/17 18:09 Order name: SARS-COV-2 RT PCR; Complete Time: 18:20 [facility] 08/17 18:19 Order name: CT Chest, Abdomen, Pelvis - W/Contrast; Complete Time: 17:31 08/18 17:32 Interpretation: Report reviewed. 08/17 18:59 Order name: Basic Metabolic Panel [facility] 08/17 18:59 Order name: Basic Metabolic Panel; Complete Time: 17:31 [facility] 08/17 18:59 Order name: CBC with Automated Diff [facility] 08/17 18:59 Order name: CBC with Automated Diff; Complete Time: 17:31 [facility] 08/18 17:31 Interpretation: Normal except: WBC 18.30; RBC 2.78; HGB 8.6; HCT 26.0; PLT 56; RDW cp 18.3; JAGJIT% 86.6; LYM% 5.9; NEUT A 15.8. 08/17 20:18 Order name: Lactate Sepsis 2 HR Follow-up; Complete Time: 17:31 [facility] 08/17 15:57 Order name: Accucheck; Complete Time: 16:28 08/17 15:57 Order name: Cardiac monitoring; Complete Time: 17:03 08/17 15:57 Order name: EKG - Nurse/Tech; Complete Time: 16:16 08/17 15:57 Order name: IV Saline Lock - Large Bore; Complete Time: 17:03 08/17 15:57 Order name: Labs collected and sent; Complete Time: 17:03 08/17 15:57 Order name: O2 Per Protocol; Complete Time: 15:59 08/17 15:57 Order name: O2 Sat Monitoring; Complete Time: 15:59 08/17 15:57 Order name: Urine Dipstick-Ancillary (obtain specimen); Complete Time: 17:35 08/17 18:59 Order name: Regular EDMS EC:23 Rate is 104 beats/min. Rhythm is regular. IA interval is normal. QRS interval is cp normal. QT interval is normal. T waves are Inverted in lead aVR. Interpreted by me. Reviewed by me. Administered Medications: 16:15 Drug: Acetaminophen 1000 mg Route: PO; ld1 16:27 Drug: NS 0.9% (30 ml/kg) 30 ml/kg Route: IV; Rate: bolus; Site: right forearm; ld1 17:03 Drug: Cefepime 1 grams Route: IVPB; Rate: 200 ml/hr; Infused Over: 30 mins; Site: left ld1 forearm; 18:55 Drug: vancoMYCIN 1 grams Route: IVPB; Infused Over: 2 hrs; Site: left forearm; ld1 19:03 Drug: Potassium Effervescent Tablet 50 mEq Route: PO; ld1 Point of Care Testing: Blood Glucose: 16:28 Blood Glucose: 110 mg/dL; ld1 Ranges: Critical Glucose Levels:Adult <50 mg/dl or >400 mg/dl <40 mg/dl or >180 mg/dl Disposition Summary: 08/17/20 18:23 Hospitalization Ordered Hospitalization Status: Inpatient Admission cp Provider: Archie Blunt cp Location: Telemetry/MedSurg (Inpatient) cp Condition: Stable cp Problem: new cp Symptoms: have improved cp Bed/Room Type: Standard cp Room Assignment: 224(08/17/20 20:24) cg Diagnosis - Other specified sepsis cp Forms: - Medication Reconciliation Form cp - SBAR form cp Addendum: 08/21/2020 07:44 Co-signature as Attending Physician, Ezequiel sheridan n Signatures: Dispatcher [employer] EDMS Ezequiel Blake MD MD rn Page, Corey, PA PA cp Charmaine Lin, RN RN cg Becka Lewis RN RN Erum Hubbard RN RN ld1 Corrections: (The following items were deleted from the chart) 08/17 16:36 16:09 Moralez ordered. cp ld1 17:01 15:58 CORONAVIRUS+MR.LAB.BRZ ordered. EDMS EDMS 17:25 17:25 Normal except: NA 135; K 3.1; CO2 20; GLUC 118. cp cp 20:24 18:59 Vancomycin Level Trough ordered. EDMS EDMS 20:24 18:59 Vancomycin Peak ordered. EDMS EDMS 20:24 18:23 cp cg
--- NOTE | 2020-08-17 18:24 | ER ---
Nurse's Notes [facility] Name: Mp Moreno Age: 65 yrs Sex: Male : 1955 Arrival Date: 08/17/2020 Time: 14:45 Bed 20 Private MD: NEISHA BAXTER Diagnosis: Other specified sepsis Presentation: 08/17 14:59 Chief complaint: "I went for chemo and had a 104 fever so they sent me over here.". hb Coronavirus screen: Client presents with at least one sign or symptom that may indicate coronavirus-19. Standard/surgical mask placed on the client. Provider contacted for isolation considerations. Ebola Screen: No symptoms or risks identified at this time. Initial Sepsis Screen: Does the patient meet any 2 criteria? HR > 90 bpm. No. Patient's initial sepsis screen is negative. Does the patient have a suspected source of infection? No. Patient's initial sepsis screen is negative. Risk Assessment: Do you want to hurt yourself or someone else? Patient reports no desire to harm self or others. Onset of symptoms was August 17, 2020. 14:59 Method Of Arrival: Wheelchair 14:59 Acuity: ANTONETTE 2 hb Historical: - Allergies: 15:01 NKDA; hb - PMHx: 15:01 Hypertension; High Cholesterol; Hyperlipidemia; Kidney stones; Myocardial infarction; hb PUD; - Immunization history:: Adult Immunizations up to date, Client reports receiving the 2nd dose of the Covid vaccine. - Social history:: Smoking status: Patient denies any tobacco usage or history of. Screenin:56 Abuse screen: Denies threats or abuse. Denies injuries from another. Nutritional ld1 screening: No deficits noted. Tuberculosis screening: No symptoms or risk factors identified. Fall Risk None identified. Assessment: 15:56 General: Appears in no apparent distress. comfortable, Behavior is calm, cooperative, ld1 appropriate for age. Pain: Denies pain. Neuro: Level of Consciousness is awake, alert, obeys commands, Oriented to person, place, time, situation. Cardiovascular: Capillary refill < 3 seconds Patient's skin is warm and dry. Respiratory: Airway is patent Respiratory effort is even, unlabored, Respiratory pattern is regular, symmetrical. GI: Abdomen is flat, non-distended. : No signs and/or symptoms were reported regarding the genitourinary system. EENT: No signs and/or symptoms were reported regarding the EENT system. Derm: No signs and/or symptoms reported regarding the dermatologic system. Musculoskeletal: No signs and/or symptoms reported regarding the musculoskeletal system. 16:45 Reassessment: Patient appears in no apparent distress at this time. No changes from ld1 previously documented assessment. Patient and/or family updated on plan of care and expected duration. Pain level reassessed. Patient is alert, oriented x 3, equal unlabored respirations, skin warm/dry/pink. 18:00 Reassessment: Patient appears in no apparent distress at this time. Patient and/or ld1 family updated on plan of care and expected duration. Pain level reassessed. Patient is alert, oriented x 3, equal unlabored respirations, skin warm/dry/pink. Patient denies pain at this time. 19:43 Reassessment: Patient appears in no apparent distress at this time. No changes from ld1 previously documented assessment. Patient and/or family updated on plan of care and expected duration. Pain level reassessed. Vital Signs: 14:59 BP 124 / 72; Pulse 112; Resp 20; Temp 102.7(TE); Pulse Ox 98% on R/A; Weight 55.34 kg; hb Height 5 ft. 7 in. (170.18 cm); Pain 0/10; 18:02 BP 128 / 70; Pulse 99; Resp 18; Temp 99.9(O); Pulse Ox 100% ; ld1 19:43 BP 119 / 78; Pulse 88; Resp 18; Temp 97.9(O); Pulse Ox 100% on R/A; Pain 0/10; ld1 14:59 Body Mass Index 19.11 (55.34 kg, 170.18 cm) hb ED Course: 14:45 Patient arrived in ED. am2 14:47 NEISHA BAXTER is Private Physician. am2 15:01 Triage completed. hb 15:01 Arm band placed on. hb 15:42 Isidro Bowens PA is PHCP. cp 15:43 Ezequiel Blake MD is Attending Physician. cp 15:47 Erum Hubbard, SONALI is Primary Nurse. ld1 15:56 Patient has correct armband on for positive identification. Bed in low position. Call ld1 light in reach. Side rails up X2. residential monitor on. Pulse ox on. NIBP on. 15:56 No provider procedures requiring assistance completed. ld1 16:25 EKG done, by ED staff, reviewed by Isidro BRENNAN. dh3 16:30 Inserted saline lock: 22 gauge in right forearm, using aseptic technique. Blood dh3 collected. 16:40 First set of blood cultures drawn by me. Inserted saline lock: 20 gauge in left dh3 forearm, using aseptic technique. Blood collected. 16:43 Initial lab(s) drawn, by me, sent to lab. Second set of blood cultures drawn by me. dh3 17:00 Chest Single View XRAY In Process Unspecified. EDMS 18:23 Archie Blunt MD is Hospitalizing Provider. cp 20:06 CT Chest, Abdomen, Pelvis - W/Contrast In Process Unspecified. EDMS 21:08 Patient admitted, IV remains in place. intact, bleeding controlled, No redness/swelling ld1 at site. Administered Medications: 16:15 Drug: Acetaminophen 1000 mg Route: PO; ld1 16:27 Drug: NS 0.9% (30 ml/kg) 30 ml/kg Route: IV; Rate: bolus; Site: right forearm; ld1 17:03 Drug: Cefepime 1 grams Route: IVPB; Rate: 200 ml/hr; Infused Over: 30 mins; Site: left ld1 forearm; 18:55 Drug: vancoMYCIN 1 grams Route: IVPB; Infused Over: 2 hrs; Site: left forearm; ld1 19:03 Drug: Potassium Effervescent Tablet 50 mEq Route: PO; ld1 Point of Care Testing: Blood Glucose: 16:28 Blood Glucose: 110 mg/dL; ld1 Ranges: Outcome: 18:23 Decision to Hospitalize by Provider. cp 21:07 Admitted to Med/surg accompanied by tech, via wheelchair, room 228, with chart, Report ld1 called to SONALI Spears 21:07 Condition: stable 21:08 Patient left the ED. ld1 Signatures: Dispatcher [employer] EDSC Isidro Bowens PA PA cp Baxter, Heather, RN RN Cassidy Moreno Deanna 3 Erum Hubbard RN RN ld1 Corrections: (The following items were deleted from the chart) 17:01 16:27 CORONAVIRUS+MR.LAB.ERIC drawn and sent. ld1 EDMS 19:44 18:02 BP 128 / 70; Pulse 99bpm; Resp 18bpm; Pulse Ox 100%; ld1 ld1
[2020-08-17] MEDS ORDERED: ONDANSETRON 4 MG/2 ML VIAL IV PRN (18:54)
[2020-08-17] MEDS ORDERED: ACETAMINOPHEN 500 MG TAB PO PRN (18:54)
[2020-08-17] MEDS ORDERED: Pharmacy Consult 1 EA XX PRN (18:58)
[2020-08-17] MEDS ORDERED: VANCOMYCIN/NS 1 gm 1 GM/250 ML BAG IVPB ONE (19:00)
[2020-08-17] MEDS ORDERED: POTASSIUM 25 MEQ EFFERV TAB ONE ×2 (19:18→19:20)
--- NOTE | 2020-08-17 20:27 | RAD REPORT ---
EXAM DESCRIPTION: CT - Chest Abdomen Pelvis W Cont - 08/17/2020 8:06 pm CLINICAL HISTORY: FEVER COMPARISON: Chest Abdomen Pelvis W Cont dated 06/14/2020; Chest Abdomen Pelvis W Cont dated 03/15/2020; Chest Abdomen Pelvis W Cont dated 12/19/2019 FINDINGS: CT chest: Right upper chest wall Port-A-Cath. Coronary artery calcifications. Small perica rdial effusion. No edema or consolidation is identified. Trace pleural fluid. Mild dependent atelecta sis. No lung masses are identified. CT abdomen/ pelvis: Hepatic steatosis with areas of nodular fatty sparing. The capsular implant along the right hepatic lobe measures 15 millimeters and has not significantly changed in size since 06/14. Again noted is pneumobilia. There is some mild enhancement of the common bile duct which is si milar to prior. There is a benign-appearing low-density lesion left hepatic lobe on image 19, series 501. Nonobstructing stones bilaterally. Bladder is unremarkable. Prostate unremarkable. No bowel obst ruction is identified. There is fluid in the region of the karoline hepatis which is unchanged. Atherosc lerosis. No acute osseus abnormalities identified. IMPRESSION: No acute findings within the chest, abdomen, or pelvis. No significant change compared 0 06/14/2020. Specifically, no new findings to explain reported fever.
[2020-08-17] MEDS ORDERED: CEFEPIME 1 GM/VIAL IV SCH (21:00)
[2020-08-17] MEDS ORDERED: CEFEPIME/SWI 1gm 10 ML IV SCH (22:00)
[2020-08-17 23:52] VITALS: BMI 19.1
[2020-08-18] MEDS: NA CHLORIDE 0.9% 1,000 ML IV SCH ×2 (00:45→15:02)
[2020-08-18 04:06] LABS: Absolute Lymphocytes (CBC) 1.1 K/uL (0.7-4.9); Basophils % 0.3 % (0-1.3); Lymphocytes % 5.9 % (15.3-44.8); MPV 9.2 fL (7.6-11.3); RBC Red Blood Cell Count 2.78 M/uL (4.33-5.43)
[2020-08-18 04:35] LABS: BUN Blood Urea Nitrogen 8 mg/dL (7-18); Bicarbonate 23 mmol/L (21-32); Glucose Level 110 mg/dL (74-106); Potassium 3.6 mmol/L (3.5-5.1); Sodium Level 141 mmol/L (136-145)
[2020-08-18] MEDS ORDERED: PANTOPRAZOLE 40MG TABLET PO SCH (09:00)
[2020-08-18] MEDS ORDERED: GABAPENTIN 300 MG CAP PO SCH (09:00)
[2020-08-18] MEDS: CEFEPIME/SWI 1gm 10 ML IV SCH ×2 (09:23→21:12)
--- NOTE | 2020-08-18 12:41 | EKG ---
Test Date: 2020-08-17 Test Time: 16:14:36 Accounts Payables Clerk: TATIANNA MEASUREMENT RESULTS: Intervals: Rate: 104 NV: 180 QRSD: 84 QT: 330 QTc: 433 [place]: P: 47 NV: 180 QRS: -43 T: 59 INTERPRETIVE STATEMENTS: Sinus tachycardia Possible Left atrial enlargement Left axis deviation Anterior infarct, age undetermined Abnormal ECG Compared to ECG 09/22/2019 19:55:20 Left-axis deviation now present Sinus rhythm no longer present First degree AV block no longer present Prolonged QT interval no longer present Myocardial infarct finding still present Electronically Signed On 08-18-20 12:37:41 CDT by Titus Nixon
[2020-08-18] MEDS: VANCOMYCIN/NS 1 gm 1 GM/250 ML BAG IV SCH ×2 (15:04→23:58)
[2020-08-18] MEDS ORDERED: MIRTAZAPINE 15 MG TAB PO SCH ×2 (21:00)
[2020-08-18] MEDS ORDERED: HOME MED 1 EA UNK (Mirtazapine [Mirtazapine] 30 MG Tablet) PO SCH (21:00)
[2020-08-18] MEDS: GABAPENTIN 300 MG CAP PO SCH (21:12)
--- NOTE | 2020-08-18 22:05 | PN ---
Date of Progress Note: 08/18/2020 The patient states he feels considerably better today. He remained afebrile. He is on IV vanc and _ . His white count has not significantly changed, however, he appears nontoxic, afebrile. H e states he feels like he is back to baseline. According to the family, this is the most energy he h as had over the past few weeks undoubtedly due to the hydration and they controlled the infection. W e will repeat the blood work and discussed the case further with Oncology prior to deciding whether t o switch him to p.o. medications, so that he could be discharged at this time. The most likely etiol ogy is UTI. Awaiting the cultures for the determination which will obviously influence which antibio tics and which will be given. HR/MODL Voice ID: [id number] Report ID: [id number]
[2020-08-19] MEDS: NA CHLORIDE 0.9% 1,000 ML IV SCH ×2 (00:08→07:21)
[2020-08-19 04:11] LABS: Absolute Lymphocytes (CBC) 1.5 K/uL (0.7-4.9); Basophils % 0.3 % (0-1.3); Lymphocytes % 11.6 % (15.3-44.8); MPV 7.8 fL (7.6-11.3); RBC Red Blood Cell Count 2.86 M/uL (4.33-5.43)
[2020-08-19 04:45] LABS: Urine Appearance CLEAR (Clear); Urine Bilirubin NEGATIVE (Negative); Urine Blood NEGATIVE (Negative); Urine Color YELLOW (Yellow); Urine Glucose NEGATIVE (Negative); Urine Protein NEGATIVE (Negative); Urine Urobilinogen 0.2 mg/dL (0.2-1.0)
[2020-08-19 04:50] LABS: Urine Microscopic Reflex NO UMIC
[2020-08-19 04:51] LABS: BUN Blood Urea Nitrogen 5 mg/dL (7-18); Bicarbonate 23 mmol/L (21-32); Glucose Level 94 mg/dL (74-106); Potassium 3.4 mmol/L (3.5-5.1); Sodium Level 141 mmol/L (136-145)
[2020-08-19] MEDS ORDERED: PANTOPRAZOLE 40MG TABLET PO SCH (09:00)
[2020-08-19] MEDS: CEFEPIME/SWI 1gm 10 ML IV SCH (09:47)
[2020-08-19] MEDS: GABAPENTIN 300 MG CAP PO SCH (09:47)
[2020-08-19 12:12] VITALS: BP 151/75; TEMP 97.7
[2020-08-19] MEDS: VANCOMYCIN/NS 1 gm 1 GM/250 ML BAG IV SCH (13:05)
--- NOTE | 2020-08-19 17:06 | PN ---
Date of Progress Note: 08/19/2020 The patient states he feels fine today, however, he did have some night sweats x2 with no documented temperature. Discussion with the Oncology. His cultures are negative including the urine. No furth er temperature elevation. Therefore, we will discharge after the next vancomycin dose. Levaquin 500 mg 1 daily for a week started today and he will be seen by Oncology next week and me on a p.r.n. bas is. HR/MODL Voice ID: [id number] Report ID: [id number]
[2020-08-19 17:50] VITALS: O2SAT 99
== END 2020-08-19 16:35 | disposition home or self-care (01) | DRG 872 ==
LOC: ER 14:41 → 2ND 18:52
PROVIDERS: ADMIT Family Medicine; ATTEND Family Medicine
DX: A41.89 Other specified sepsis (principal); C17.0 Malignant neoplasm of duodenum; N39.0 Urinary tract infection, site not specified; I10 Essential (primary) hypertension; E78.5 Hyperlipidemia, unspecified; I25.2 Old myocardial infarction
CPT/HCPCS: 36415; 71045; 71260; 74177; 80048; 80076; 80202; 81003; 81015; 82550; 82947; 83605; 83690; 84145; 84484; 85025; 85610; 85730; 87040; 87086; 87088; 87804; 93005; 99285; J0640; J0692; J1100; J1453; J2469; J3370; J7030; J7040; J7050; J7060; J9190; J9263; Q9967; U0003

== ENCOUNTER 2022-04-12 18:37 | Inpatient (IN) | payer OTHER ==
--- OUTSIDE RECORDS SUMMARY | 2022-04-12 18:43 | XMS REPORT | Continuity of Care Document ---
:1955 Author Organization [facility] t Address [address] [place] [address] [address] [place] [address] Care Team Providers Name Role Phone Andreas Yap MD Primary Care Physician RADHA SCOTT Attending Clinician Unavailable BHANU HAMMONDS Attending Clinician Unavailable Bhanu Hammonds MD Attending Clinician OSCAR BURDEN Attending Clinician Unavailable HA NORTH Attending Clinician Unavailable LEANNE FRANCO Attending Clinician Unavailable RADHA SCOTT Admitting Clinician Unavailable YOSEPH GARCES Admitting Clinician Unavailable OSCAR BURDEN Admitting Clinician Unavailable LEANNE FRANCO Admitting Clinician Unavailable Payers Payer Name Policy Type Policy Number Effective Date Expiration Date S karo BS PPO POS EPO [id number] 2018 2019 CHOICE 00:00:00 00:00:00 OUT OF STATE BS [id number] 2018 - PPO - BS 00:00:00 [facility] [id number] [facility] [id number] CDC REVIEW [id number] 2019 2019 00:00:00 00:00:00 Problems Condition Condition Condition Status Onset Resolution Last Treating Co mments Source Name Details Category Date Date Treatment Clinician Date 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 9-16 [facility] (HCCode) (HCCode) 00:00: of 00 Medicin e Acute Acute Disease Active [facility] coronary coronary 8-20 [facility] syndrome syndrome 00:00: Medica l 00 Center 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 8-20 [facility] k[facility] noma noma 00:00: Medical 00 Center 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 8-20 [facility] benny zapata 00:00: Medical malnutriti malnutriti 00 Ce nter on (Soto: on (Soto: less than less than 60% of 60% of standard standard weight) weight) Acute Acute Disease Active [facility] duodenal duodenal 8-20 [facility] ulcer with ulcer with 00:00: Me dical gastric gastric 00 Center outlet outlet obstructio obstructio n n Coronary Coronary Disease [facility] artery artery [facility] disease disease 00:00: Medical involving involving 00 Cent er mentasta mentasta coronary coronary artery of artery of mentasta mentasta heart with heart with angina angina pectoris pectoris Abdominal Abdominal Disease Active [facility] pain pain 8-19 [facility] 00:00: Medical 00 Center 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 8-18 [facility] disease disease 00:00: Medical 00 Center SANTOS (acute SANTOS (acute Disease Active [facility] kidney kidney 8-18 [facility] injury) injury) 00:00: Medical 00 Center Volume Volume Disease Active [facility] depletion depletion 8-18 [facility] 00:00: Medical 00 Center Non-intrac Non-intrac Disease Active [facility] table table 8-18 [facility] vomiting vomiting 00:00: Medica l with with 00 Center nausea nausea 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[facility] ulcer with ulcer with 5-24 [facility] hemorrhage hemorrhage 00:00: Me dical but but 00 Center without without obstructio obstructio n n Anemia, Anemia, Disease Active [facility] secondary secondary 5-24 [facility] 00:00: Medical 00 Center Hiatal Hiatal Disease Active [facility] hernia hernia 5-24 [facility] 00:00: Medical 00 Center Melena Melena Disease Active [facility] 5-24 [facility] 00:00: Medical 00 Center Hyperlipid Hyperlipid Disease Active [facility] emia emia -24 [facility] 00:00: Medical 00 Center GIB GIB Disease Active [facility] (gastroint (gastroint 06-27 [facility] estinal estinal 00:00: Medical bleeding) bleeding) 00 Cent er Coronary Coronary Disease [facility] artery artery - [facility] disease disease 00:00: Medical involving involving 00 Cent er mentasta mentasta coronary coronary artery of artery of mentasta mentasta heart heart without without angina angina pectoris pectoris Chest pain Chest pain Disease Active [facility] with high with high 6-13 [facility] risk for risk for 00:00: Medica l cardiac cardiac 00 Center etiology etiology Allergies, Adverse Reactions, Alerts Allergy Allergy Status Severity Reaction(s) Onset Inactive Treating Comm ents Source Name Type Date Date Clinician NO KNOWN Allergy Active [facility] Family History Family Member Diagnosis Comments Start Date Stop Date Source Natural father Heart disease [facility] Natural mother Diabetes [facility] Natural mother Hypertension [facility] Social History Social Habit Start Date Stop Date Quantity Comments Source History of tobacco Cigarette Smoker [facility] use of Medicine History SDOH [facility] Alcohol Frequency Medical Center History SDOH [facility] Alcohol Std Drinks Medica Center History SDOH [facility] Alcohol Binge [facility] Alcohol intake 2019-10-01 2019-10-01 [facility]:00:00 of alcohol [facility] (finding) Tobacco Comment 2018-06-28 2018-06-[address] [facility] 00:00:00 00:00:00 (SMOKED FOR [address] [id number]) Alcohol Comment 2018-06-28 2018-06-[address] [facility] [address] [facility] 00:00[facility]00 00[facility]00[facility]00 [facility] Tobacco use and 2018-06-28 2018-06-[address] [facility] exposure 00:00:00 00:00:00 [facility] Sex Assigned At [address] 00:00:00 00:00:00 Medical Center Smoking Status Start Date Stop Date Source Ex-smoker 2018-07-12 00:00:00 2018-07-12 00:00:00 [facility] Medications Ordered Filled Start Stop Current Ordering Indication Dosage Frequency Signature Comments Components Source Medication Medication Date Date Medication? Clinician (SIG) Name Name GABAPENTIN 2020-02 Yes 300mg Take 300 [facility] OR 2-17 mg by College 16:03: mouth four of 42 times Medicin daily. e losartan 2020-02 Yes [facility] (COZAAR) 50 1-19 College MG tablet 00:00: of 00 Medicin e GABAPENTIN 2020-02 Yes 300mg Take 300 [facility] OR 0-15 mg by College 14:53: mouth four of 16 times Medicin daily. e mirtazapine Yes daily. [facility] (REMERON 09-06 [facility] DIEGO-TAB) 30 00:00: of MG 00 Medicin disintegrat e ing tablet mirtazapine Yes daily. [facility] (REMERON 09-06 [facility] DIEGO-TAB) 30 00:00: of MG 00 Medicin disintegrat e ing tablet dexamethaso No Yadiello r ne 5-18 10-15 College (DECADRON) 00:00: 00:00 of 4 MG tablet 00 :00 Medicin e omeprazole 2019-02 Yes 40mg Take 40 mg [facility] (PRILOSEC) 1-13 by mouth Colle ge 40 MG 21:41: daily. of capsule 34 Medicin e tramadol 2019-02 Yes 50mg Take 50 mg [facility] erika (ULTRAM) 50 1-13 by mouth Rosi ege MG tablet 21:41: every 6 of 34 hours as Medicin needed for e Pain. erythromyci 2019-02 Yes 250mg Take 250 [facility] n base 1-13 mg by [facility] (E-MYCIN) 21:41: mouth four of 250 MG 34 times Medicin tablet daily. e aspirin EC 2019- No 81mg Take 81 mg [facility] 81 MG TBEC 16 -16 by mouth. Col lege 21:18: 00:00 of 02 :00 Medicin e omeprazole 2019-0 Yes 40mg Take 40 mg [facility] (PRILOSEC) 9-16 by mouth Colle ge 40 MG 21:17: daily. of capsule 47 Medicin e tramadol 0 Yes 50mg Take 50 mg [facility] erika (ULTRAM) 50 -16 by mouth Rosi ege MG tablet 21:17: every 6 of 47 hours as Medicin needed for e Pain. erythromyci 2020-0 Yes 250mg Take 250 [facility] n base 9-16 mg by [facility] (E-MYCIN) 21:17: mouth four of 250 MG 47 times Medicin tablet daily. e niacin 2019-0 2020- No 500mg Take 500 [facility] (SLO-NIACIN 10-21-16 mg by Renaldo horvath ) 500 MG 21:17: 00:00 mouth. of tablet 44 :00 Medicin e losartan 2019-0 2020- No 50mg Take 50 mg [facility] (COZAAR) 50 10-21 by mouth. Co llege MG tablet 21:17: 00:00 of 41 :00 Medicin e ezetimibe 2019-0 2020- No 10mg Take 10 mg [facility] (ZETIA) 10 10-21 by mouth. Col lege MG tablet 21:16: 00:00 of 19 :00 Medicin e ezetimibe 2019-0 Yes 10mg QD Take [address] (ZETIA) 10 9-02 by mouth [facility] mg tablet 11:34: daily. Medica l [address] niacin 2020-0 Yes 500mg Take [address] (SLO-NIACIN 9-02 mg by [facility] ) 500 mg 11:34: mouth 2 Medica l tablet 37 (two) Center times daily with breakfast and dinner. losartan 2020-0 Yes 50mg QD Take [address] [facility] (COZAAR) 50 9-02 by mouth [facility] MG tablet 11:34: daily. Medica l [address] omeprazole 2020-0 Yes 40mg QD Take [address] (PRILOSEC) 9-02 by mouth [facility] 40 MG 11:34: daily. Medical capsule 37 Center simvastatin 2020-0 Yes 40mg QD Take [address] [facility] (ZOCOR) 40 9-02 by mouth [facility] MG tablet 11:34: nightly. Medi katie [address] [place] [address] ezetimibe 2020-0 Yes 10mg QD Take [address] (ZETIA) 10 9-02 by mouth [facility] mg tablet 11:34: daily. Medica l [address] niacin 2020-0 Yes 500mg Take [address] (SLO-NIACIN 9-02 mg by [facility] ) 500 mg 11:34: mouth 2 Medica l tablet 37 (two) Center times daily with breakfast and dinner. losartan 2020-0 Yes 50mg QD Take [address] (COZAAR) 50 9-02 by mouth [facility] MG tablet 11:34: daily. Medica [address] omeprazole 2020-0 Yes 40mg QD Take [address] (PRILOSEC) 9-02 by mouth [facility] 40 MG 11:34: daily. Medical capsule Center simvastatin 2020-0 Yes 40mg QD Take [address] (ZOCOR) 40 9-02 by mouth [facility] MG tablet 11:34: nightly. [address] ezetimibe 2020-0 Yes 10mg QD Take [address] (ZETIA) 10 9-02 by mouth [facility] mg tablet 11:34: daily. [address] niacin 2020-0 Yes 500mg Take [address] (SLO-NIACIN 9-02 mg by [facility] ) 500 mg 11:34: mouth 2 Medica l tablet 37 (two) Center times daily with breakfast and dinner. losartan 2020-0 Yes 50mg QD Take [address] [facility] (COZAAR) 50 9-02 by mouth [facility] MG tablet 11:34: daily. [address] omeprazole 2020-0 Yes 40mg QD Take [address] (PRILOSEC) 9-02 by mouth [facility] 40 MG 11:34: daily. Medical [address] simvastatin 2020-0 Yes 40mg QD Take [address] [facility] (ZOCOR) 40 9-02 by mouth [facility] MG tablet 11:34: nightly. [address] promethazin 2020-0 Yes TAKE ONE [facility] e 8-06 (1) TO TWO [facility] (PHENERGAN) 00:00: (2) Medica l 25 MG 00 TABLET(S) Center tablet BY MOUTH EVERY FOUR TO SIX HOURS NEEDED. promethazin 2020-0 Yes TAKE ONE [facility] 8-06 (1) TO TWO [facility] (PHENERGAN) 00:00: (2) Medica l 25 MG 00 TABLET(S) Center tablet BY MOUTH EVERY FOUR TO SIX HOURS NEEDED. promethazin 2020-0 Yes TAKE ONE [facility] 8-06 (1) TO TWO [facility] (PHENERGAN) 00:00: (2) Medica l 25 MG 00 TABLET(S) Center tablet BY MOUTH EVERY FOUR TO SIX HOURS NEEDED. erythromyci 2020-[address] [facility] base 7-28 ONE-FOURTH [facility] (E-MYCIN) 00:00: (4 ) OF Med ical 250 MG 00 A TABLET Center tablet BY MOUTH FOUR TIMES A DAY FOR 3 WEEKS, THEN STOP FOR 3 WEEKS BEFORE STARTING CYCLE AGAIN. erythromyci 2020-[address] [facility] n base 7-28 ONE-FOURTH [facility] (E-MYCIN) 00:00: (4 ) OF Med ical 250 MG 00 A TABLET Center tablet BY MOUTH FOUR TIMES A DAY FOR 3 WEEKS, THEN STOP FOR 3 WEEKS BEFORE STARTING CYCLE AGAIN. erythromyci 2020-[address] [facility] base 7-28 ONE-FOURTH [facility] (E-MYCIN) 00:00: (4 ) OF Med ical 250 MG 00 A TABLET Center tablet BY MOUTH FOUR TIMES A DAY FOR 3 WEEKS, THEN STOP FOR 3 WEEKS BEFORE STARTING CYCLE AGAIN. simvastatin 2019-0 2020- No 40mg Take 40 mg [facility] (ZOCOR) 40 616 by mouth. Col lege MG tablet 00:00: 00:00 of 00 :00 Medicin e pantoprazol 2019-0 Yes 40mg Take 1 Tab [facility] e 6-07 by mouth College (PROTONIX) 00:00: two times of 40 MG 00 daily. Medicin tablet e pantoprazol 2019-0 Yes 40mg Take 1 Tab [facility] e 6-07 by mouth College (PROTONIX) 00:00: two times of 40 MG 00 daily. Medicin tablet e pantoprazol 2019-0 Yes 40mg Take 1 Tab [facility] e 6-07 by mouth College (PROTONIX) 00:00: two times of 40 MG 00 daily. Medicin tablet e pantoprazol 2019-0 Yes 40mg Take 1 Tab [facility] e 6-07 by mouth College (PROTONIX) 00:00: two times of 40 MG 00 daily. Medicin tablet e Immunizations Ordered Immunization Filled Immunization Date Status Commen ts Source Name Name Covid-19 Vaccine 2020-04-[address] [facility] MRNA (PF) 12yr+ 00:00:00 Medical C enter (Pfizer/Private Practice)(IM M601) Covid-19 Vaccine 2020-04-[address] [facility] MRNA (PF) 12yr+ 00:00:00 Medical C enter (Pfizer/BioNTech)(IM M601) Covid-19 Vaccine 2020-04-[address] [facility] MRNA (PF) 12yr+ 00:00:00 Medical C enter (Pfizer/BioNTech)(IM M601) Covid-19 Vaccine 2020-04-[address] [facility] MRNA (PF) 12yr+ 00:00:00 Medical C enter (Pfizer/BioNTech)(IM M601) Covid-19 Vaccine 2020-04-[address] [facility] MRNA (PF) 12yr+ 00:00:00 Medical C enter (Pfizer/BioNTech)(IM M601) Covid-19 Vaccine 2020-04-[address] [facility] MRNA (PF) 12yr+ 00:00:00 Medical C enter (Pfizer/BioNTech)(IM M601) Vital Signs Vital Name Observation Time Observation Value Comments Source Systolic blood 2021-01-21 22:04:00 165 mm[Hg] [facility] Medicine Diastolic blood 2021-01-21 22:04:00 94 mm[Hg] [facility] Heart rate 2021-01-21 21:59:00 71 /min 96% O2 [facility] Body temperature 2021-01-21 21:59:00 36.56 Nidia [facility] Respiratory rate 2021-01-21 21:59:00 18 /min [facility] Body height 2021-01-21 21:59:00 172.7 cm [facility] Body weight 2021-01-21 21:59:00 72.938 kg [facility] BMI 2021-01-21 21:59:00 24.45 kg/m2 [facility] Systolic blood 2020-11-19 19:48:00 172 mm[Hg] [facility] Medicine Diastolic blood 2020-11-19 19:48:00 91 mm[Hg] [facility] Medicine Heart rate 2020-11-19 19:48:00 77 /min [facility] Body temperature 2020-11-19 19:48:00 36.5 Nidia [facility] Respiratory rate 2020-11-19 19:48:00 19 /min [facility] Body height 2020-11-19 19:48:00 172.7 cm [facility] Body weight 2020-11-19 19:48:00 71.305 kg [facility] of [facility] BMI 2020-11-19 19:48:00 23.90 kg/m2 [facility] Body weight 2019-12-19 21:41:00 59.603 kg [facility] Medicine BMI 2019-12-19 21:41:00 19.98 kg/m2 [facility] ol[facility] of Medicine Systolic blood 2019-12-19 21:41:00 151 mm[Hg] [facility] pressure Medicine Diastolic blood 2019-12-19 21:41:00 84 mm[Hg] [facility] pressure Medicine Heart rate 2019-12-19 21:41:00 73 /min O2: 99% [facility] of Medicine Body temperature 2019-12-19 21:41:00 36.39 Nidia [facility] Body height 2019-12-19 21:41:00 172.7 cm [facility] Body weight 2019-12-19 21:41:00 59.603 kg [facility] Medicine BMI 2019-12-19 21:41:00 19.98 kg/m2 [facility] of Medicine Systolic blood 2019-12-19 21:41:00 151 mm[Hg] [facility] pressure Medicine Diastolic blood 2019-12-19 21:41:00 84 mm[Hg] [facility] pressure Medicine Heart rate 2019-12-19 21:41:00 73 /min O2: 99% [facility] Medicine Body temperature 2019-12-19 21:41:00 36.39 Nidia [facility] Body height 2019-12-19 21:41:00 172.7 cm [facility] Medicine Systolic blood 2019-10-22 21:09:00 110 mm[Hg] [facility] pressure Medicine Diastolic blood 2019-10-22 21:09:00 70 mm[Hg] [facility] pressure Medicine Heart rate 2019-10-22 21:09:00 71 /min O2: 100% [facility] Medicine Body temperature 2019-10-22 21:09:00 37 Nidia [facility] Body height 2019-10-22 21:09:00 172.7 cm [facility] Medicine Body weight 2019-10-22 21:09:00 57.879 kg [facility] Medicine BMI 2019-10-22 21:09:00 19.40 kg/m2 [facility] 2019-10-22 21:09:00 110 mm[Hg] [facility] pressure Medicine Diastolic blood 2019-10-22 21:09:00 70 mm[Hg] [facility] Medicine Heart rate 2019-10-22 21:09:00 71 /min O2: 100% [facility] Body temperature 2019-10-22 21:09:00 37 Nidia [facility] Body height 2019-10-22 21:09:00 172.7 cm [facility] Body weight 2019-10-22 21:09:00 57.879 kg [facility] Medicine BMI 2019-10-22 21:09:00 19.40 kg/m2 [facility] HEIGHT 2019-09-22 00:00:00 167.6 cm WEIGHT 2019-09-22 00:00:00 65.182 kg HEIGHT 2019-09-22 00:00:00 167.6 cm WEIGHT 2019-09-22 00:00:00 65.182 kg HEIGHT 2019-09-16 00:00:00 167.6 cm WEIGHT 2019-09-16 00:00:00 63.504 kg HEIGHT 2019-09-16 00:00:00 167.6 cm WEIGHT 2019-09-16 00:00:00 63.504 kg Procedures This patient has no known procedures. Plan of Care Planned Activity Planned Date Details Comments Source Future Scheduled 2029-09-28 Screening for malignant [facility] Test 00:00:00 neoplasm of colon Medical Ce nter (procedure) [code = 880960033] Future Scheduled 2029-09-28 Screening for malignant [facility] Test 00:00:00 neoplasm of colon Medical Ce nter (procedure) [code = 866814891] Future Scheduled 2029-09-28 Screening for malignant [facility] Test 00:00:00 neoplasm of colon Medical Ce nter (procedure) [code = 413061377] Future Scheduled 2029-09-28 Screening for malignant [facility] Test 00:00:00 neoplasm of colon Medical Ce nter (procedure) [code = 363770738] Future Scheduled 2029-09-28 Screening for malignant [facility] Test 00:00:00 neoplasm of colon Medical Ce nter (procedure) [code = 656065807] Future Scheduled 2029-09-28 Screening for malignant [facility] Test 00:00:00 neoplasm of colon Medical Ce nter (procedure) [code = 476590521] Future Scheduled 2022-09-22 Lipid panel (procedure) [facility] Test 00:00:00 [code = 45950505] Medical Ce nter Future Scheduled 2022-09-22 Lipid panel (procedure) [facility] Test 00:00:00 [code = [id number]] Medical Ce nter Future Scheduled 2022-09-22 Lipid panel (procedure) [facility] Test 00:00:00 [code = [id number]] Medical Ce nter Future Scheduled 2022-02-[address] [facility] Test 00:00:00 (12+) [code = DEPRESSION Med ical Center SCREENING (12+)] Future Scheduled 2022-02-05 FALLS RISK SCREENING [facility] Test 00:00:00 [code = FALLS RISK Medical C enter SCREENING] Future Scheduled 2022-02-[address] [facility] Test 00:00:00 (12+) [code = DEPRESSION Med ical Center SCREENING (12+)] Future Scheduled 2022-02-05 FALLS RISK SCREENING [facility] Test 00:00:00 [code = FALLS RISK Medical C enter SCREENING] Future Scheduled 2022-02-[address] [facility] Test 00:00:00 (12+) [code = DEPRESSION Med ical Center SCREENING (12+)] Future Scheduled 2022-02-05 FALLS RISK SCREENING [facility] Test 00:00:00 [code = FALLS RISK Medical C enter SCREENING] Future Scheduled 2021-10-06 INFLUENZA VACCINE (#1) [facility] 00:00:00 [code = INFLUENZA VACCINE La dical Center (#1)] Future Scheduled 2021-10-06 INFLUENZA VACCINE (#1) [facility] 00:00:00 [code = INFLUENZA VACCINE Me dical Center (#1)] Future Scheduled 2021-10-06 INFLUENZA VACCINE (#1) [facility] 00:00:00 [code = INFLUENZA VACCINE Me dical Center (#1)] Future Scheduled 2021-01-21 TETANUS SHOT (ADULT) [facility] of Test 16:03:12 [code = TETANUS SHOT Medicin e (ADULT)] Future Scheduled 2021-01-21 Hepatitis C screening Ba [facility] of Test 16:03:12 (procedure) [code = Medicine [id number]] Future Scheduled 2021-01-21 Human immunodeficiency B [facility] of Test 16:03:12 virus screening Medicine (procedure) [code = 205902588] Future Scheduled 2021-01-21 ZOSTER VACCINE (1 of 2) [facility] of Test 16:03:12 [code = ZOSTER VACCINE (1 Me dicine of 2)] Future Scheduled 2021-01-21 FLU VACCINE > 6 MONTHS B [facility] of Test 16:03:12 [code = FLU VACCINE > 6 Medi cine MONTHS] Future Scheduled 2021-01-21 COVID-19 Vaccine (3 - Ba [facility] of Test 16:03:12 Booster for Pfizer Medicine series) [code = COVID-19 Vaccine (3 - Booster for Pfizer series)] Future Scheduled 2021-01-21 Screening for malignant [facility] of Test 16:03:12 neoplasm of colon Medicine (procedure) [code = 206893059] Future Scheduled 2020-11-19 TETANUS SHOT (ADULT) [facility] of Test 14:52:04 [code = TETANUS SHOT Medicin e (ADULT)] Future Scheduled 2020-11-19 Hepatitis C screening [facility] of Test 14:52:04 (procedure) [code = Medicine [id number]] Future Scheduled 2020-11-19 Human immunodeficiency B [facility] of Test 14:52:04 virus screening Medicine (procedure) [code = 112719042] Future Scheduled 2020-11-19 ZOSTER VACCINE (1 of 2) [facility] of Test 14:52:04 [code = ZOSTER VACCINE (1 Me dicine of 2)] Future Scheduled 2020-11-19 FLU VACCINE > 6 MONTHS B [facility] of Test 14:52:04 [code = FLU VACCINE > 6 Medi cine MONTHS] Future Scheduled 2020-11-19 Screening for malignant [facility] Test 14:52:04 neoplasm of colon Medicine (procedure) [code = 849212524] Future Scheduled 2020-09-[address] [facility] Test 00:00:00 Counseling and Screening [facility] (12+) [code = Tobacco Cessation Counseling and Screening (12+)] Future Scheduled 2020-09-[address] [facility] Test 00:00:00 Counseling and Screening Med ica Center (12+) [code = Tobacco Cessation Counseling and Screening (12+)] Future Scheduled 2020-09-[address] [facility] Test 00:00:00 Counseling and Screening [facility] Center (12+) [code = Tobacco Cessation Counseling and Screening (12+)] Future Scheduled 2020-09-22 COVID-19 VACCINE (3 - [facility] 00:[facility]:00 Booster for Pfizer Medical C enter series) [code = COVID-19 VACCINE (3 - Booster for Pfizer series)] Future Scheduled 2020-09-22 COVID-19 VACCINE (3 - [facility] 00:00:00 Booster for Pfizer Medical C enter series) [code = COVID-19 VACCINE (3 - Booster for Pfizer series)] Future Scheduled 2020-09-22 COVID-19 VACCINE (3 - [facility] 00:00:00 Booster for Pfizer Medical C enter series) [code = COVID-19 VACCINE (3 - Booster for Pfizer series)] Future Scheduled 2006 SHINGLES VACCINES ([address] [facility] Test 00:00:00 2) [code = SHINGLES Medical Center VACCINES (1 of 2)] Future Scheduled 2006 SHINGLES VACCINES ([address] [facility] Test 00:00:00 2) [code = SHINGLES Medical Center VACCINES (1 of 2)] Future Scheduled 2006 SHINGLES VACCINES ([address] [facility] Test 00:00:00 2) [code = SHINGLES Medical Center VACCINES (1 of 2)] Future Scheduled 1975-07-04 DTAP/TDAP/TD VACCINES ([address] [facility] Test 00:00:00 - Tdap) [code = Medical [facility] er DTAP/TDAP/TD VACCINES (1 - Tdap)] Future Scheduled 1975-07-04 DTAP/TDAP/TD VACCINES ([address] [facility] Test 00:00:00 - Tdap) [code = Medical Cent er DTAP/TDAP/TD VACCINES (1 - Tdap)] Future Scheduled 1975-07-04 DTAP/TDAP/TD VACCINES ([address] [facility] Test 00:00:00 - Tdap) [code = Medical Cent er DTAP/TDAP/TD VACCINES (1 - Tdap)] Future Scheduled 1974 HEPATITIS C SCREENING [facility] 00:00:00 [code = HEPATITIS C Medical Center SCREENING] Future Scheduled 1974 HEPATITIS C [facility] 00:00:00 [code = HEPATITIS C Medical Center SCREENING] Future Scheduled 1974 HEPATITIS C [facility]CRE[facility] 00:00:00 [code = HEPATITIS C Medical Center SCREENING] Future Scheduled 1962 PNEUMOCOCCAL 65+ YRS (1 - [facility] Test 00:00:00 PCV) [code = PNEUMOCOCCAL Me dical Center 65+ YRS (1 - PCV)] Future Scheduled 1962 PNEUMOCOCCAL 65+ YRS (1 - [facility] Test 00:00:00 PCV) [code = PNEUMOCOCCAL Me dical Center 65+ YRS (1 - PCV)] Future Scheduled 1962 PNEUMOCOCCAL 65+ YRS (1 - [facility] Test 00:00:00 PCV) [code = PNEUMOCOCCAL Me dical Center 65+ YRS (1 - PCV)] Future Scheduled 1956 CT Colonography (combo) [facility] Test 00:00:00 [code = CT Colonography [facility] (combo)] Future Scheduled 1956 Screening for malignant [facility] Test 00:00:00 neoplasm of colon Medical Ce nter (procedure) [code = 664094013] Future Scheduled 1956 Screening for malignant [facility] Test 00:00:00 neoplasm of colon Medical Ce nter (procedure) [code = 031700562] Future Scheduled 1955 Sigmoidoscopy [code = [facility] 00:[facility]:00 Sigmoidoscopy] Medical Cente r Future Scheduled 1956 CT Colonography (combo) [facility] 00:00:00 [code = CT Colonography [facility] (combo)] Future Scheduled 1956 Screening for malignant [facility] 00:00:00 neoplasm of colon Medical Ce nter (procedure) [code = 614279707] Future Scheduled 1956 Screening for malignant [facility] 00:00:00 neoplasm of colon Medical Ce nter (procedure) [code = 945773314] Future Scheduled 1956 Sigmoidoscopy [code = [facility]] Medical Cente r Future Scheduled 1956 CT Colonography (combo) [facility] 00:00:00 [code = CT Colonography [facility] (combo)] Future Scheduled 1956 Screening for malignant [facility] 00:00:00 neoplasm of colon Medical Ce nter (procedure) [code = 700852239] Future Scheduled 1956 Screening for malignant [facility] 00:00:00 neoplasm of colon Medical Ce nter (procedure) [code = 243876977] Future Scheduled 1956 Sigmoidoscopy [code = [facility] TETANUS SHOT (ADULT) [facility] Test [code = TETANUS SHOT Medicin e (ADULT)] Future Scheduled HEPATITIS C SCREENING [facility] Test [code = HEPATITIS C Medicine SCREENING] Future Scheduled HIV SCREENING [code = HIV [facility] SCREENING] Medicine Future Scheduled ZOSTER VACCINE (1 of 2) [facility] Test [code = ZOSTER VACCINE (1 Me dicine of 2)] Future Scheduled FLU VACCINE > 6 MONTHS B [facility] Test [code = FLU VACCINE > 6 Medi cine MONTHS] Future Scheduled COLON CANCER SCREENING: [facility] COLONOSCOPY [code = COLON Me dicine CANCER SCREENING: COLONOSCOPY] Future Scheduled TETANUS SHOT (ADULT) [facility] Test [code = TETANUS SHOT Medicin e (ADULT)] Future Scheduled HEPATITIS C SCREENING [facility] Test [code = HEPATITIS C Medicine SCREENING] Future Scheduled HIV SCREENING [code = HIV [facility] SCREENING] Medicine Future Scheduled ZOSTER VACCINE (1 of 2) [facility] Test [code = ZOSTER VACCINE (1 Me dicine of 2)] Future Scheduled FLU VACCINE > 6 MONTHS B [facility] [code = FLU VACCINE > 6 Medi cine MONTHS] Future Scheduled COLON CANCER SCREENING: [facility] Test COLONOSCOPY [code = COLON Me dicine CANCER SCREENING: COLONOSCOPY] Encounters Start End Encounter Admission Attending Care Care Encounter Source Date/Time Date/Time Type Type Clinicians Facility Department ID 2020-11-10 Outpatient KELLY SCOTT Surgery [id number] [facility] 03:19:31 RADHA 2021-01-21 2021-01-21 Office MILTON HAMMONDS [id number] [facility] 15:19:41 16:34:19 Visit BHANU Alcantara.1.13.21 Co llege 0.2.7.2.686 of [phone] Medi corrie 510 e 2020-11-19 2020-11-19 Office MILTON HAMMONDS [id number] [facility] 14:41:09 16:23:46 Visit BHANU Alcantara.1.13.21 Co llege 0.2.7.2.686 of [id number] [facility] corrie 510 e 2020-09-17 2020-09-17 Outpatient JOE SIMMONS [facility] [id number] [facility] 14:03:06 15:21:20 BHANU horvath of Medicin e 2020-04-22 2020-04-22 Outpatient [facility] [id number] [facility] 00:00:00 00:00:00 2020-04-01 2020-04-01 Outpatient [facility] [id number] [facility] 00:00:00 00:00:00 2019-12-19 2019-12-19 Office MILTON Hammonds [id number] 15:36:52 16:07:07 Visit Bhanu Alcantara.1.13.21 0.2.7.2.686 [id number] 2019-12-19 2019-12-19 Office MILTON Hammonds [id number] [facility] 15:36:52 16:07:07 Visit Bhanu Alcantara.1.13.21 Co llege 0.2.7.2.686 of [id number] [facility] corrie 510 e 2019-10-22 2019-10-22 Office MILTON Hammonds 1.2.840.114 [id number] 15:52:30 16:30:52 Visit Bhanu Tinajero 350.1.13.21 0.2.7.2.686 [id number] 510 2019-10-22 2019-10-22 Office SARAHI HammondsLucia 1.2.840.114 [id number] [facility] 15:52:30 16:30:52 Visit Bhanu Tinajero 350.1.13.21 Co llege 0.2.7.2.686 of [id number] [facility] 510 e 2019-09-23 2019-09-23 Outpatient ER BERTRAM [facility] Gastro [id number] [facility] 03:37:00 03:37:00 OSCAR 2019-09-16 2019-09-16 Emergency ER [facility] Emergency [id number] [facility] 13:44:00 13:44:00 Results Test Description Test Time Test Comments Results Result [facility] e Comments TISSUE EXAM 2019-12-23 Surgical Pathology Report 16:05:00 Case: [id number] Authorizing Provider: Bhanu Hammonds II, MD Collected: 10/01/2019 08:34 AM Ordering Location: [facility] PERIOPERATIVE Received: 10/01/2019 08:38 AM SERVICES Pathologist: [...] developed and its performance characteristics determined by [facility], Pathology Laboratory. It has not been cleared [...] to perform high complexity clinical laboratory testing. [id number], 27713 [id number] electronically signed by Ronnie Pope MD on 12/23/2019 at 4:05 PMA. LIVER, RIGHT LOBE WEDGE RESECTION: - POSITIVE FOR METASTATIC ADENOCARCINOMA, MODERATELY DIFFERENTIATED.B. GALLBLADDER, CHOLECYSTECTOMY: - MILD CHRONIC CHOLECYSTIS - CHOLESTEROLOSIS - ONE LYMPH NODE POSITIVE FOR METASTATIC ADENOCARCINOMA (02/05) Signing Pathologist Direct Phone Line: [phone] y signed by Ronnie Pope MD on 10/03/2019 at 2:43 [id number], [id number] neoplasm of duodenum A. Liver, right lobe [...] entirely submitted.Section code:A1FS: Plaque to margin, perpendicular rvrdtfwcS2EZ: Remainder of the specimen submitted perpendicularlyCG/ew B. [...] 0.1 cm. No gross lesions are identified. Independent Living Specialist sections are submitted.Section codeB1: Cystic duct margin, en face and 1 lymph node, bisectedB2: Gallbladder wallChelsea Graun, MHS, MIKA (ASCP)Sukhwinder LIVER, BIOPSY: - ADENOCARCINOMA Reported by Dr. Pope to Dr. Hammonds on 10/01/19, at 0855Performed FUNGUS CULTURE + SMEAR 2019-10-29 17:22:00 Test Item Value Reference Range Interpretation Comme nts CULTURE (BEAKER) (test code = 1095) No fungus isolated in 28 days FUNGUS SMEAR (BEAKER) (test code = 1406) No fungal elements seen SARS-COV2/RT-PCR ([facility])2019-10-08 17:14:00 Test Item Value Reference Range Interpretation Comments SARS-COV2/RT-PCR (test Negative Not Detected, Negative, code = 3711133) See external report for linked test SARS-COV-2 PERFORMING LAB [facility] (test code = 3804967) Negative result for this test determines that [...] individuals suspected of COVID-19 by their healthcare provider.This test [...] justifying the authorization of the emergency use ofin vitro diagnostic tests for detection and/or diagnosis of COVID-19 is terminated under Section 564(b)(2) of the Act or the EUA is revoked under Section 564(g) of the Act.Fact Sheet for Healthcare Prov iders:https://www.[employer]/sites/default/files/product/documents/Fact_Sheet_HC _Dvrjszssh_Omnm_SICC-CvL-7.pdfFact Sheet for Healthcare Patients:https://www.[employer]/sites/default/files/product/docume nts/Etxh_Sdcfd_Wgnyeach_Ozff_KHJW-HwA-2.pdfPerforming Laboratory:[facility], [place] [address]VYBK-LDKCOLD METER 2019-10-08 11:14:00 Test Item Value Reference Range Interpretation Comments POC-GLUCOSE METER 94 mg/dL 70-110 : TESTED A T [facility] 6720 (BEAKER) (test code = [facility], 1538) 98969: Roller Mill Operator/Techni kimberlee ID = [id number] for Will iams, Areiona POCT-GLUCOSE [id number] 07:28:00 Test Item Value Reference Range Interpretation Comments POC-GLUCOSE METER 90 mg/dL 70-110 : TESTED A T [facility] 6720 (BEAKER) (test code = [facility], 1538) 03924: Roller Mill Operator/Techni kimberlee ID = [id number] for Will iams, Areiona BASIC METABOLIC [id number] 04:44:00 Test Item Value Reference Range Interpretation [...] 1092) DATA TO CALCULA TE ESTIMATED GFR. Roller Mill Operator ID - TALHA [id number] 04:39:00 Test Item Value Reference Range Interpretation Comments PHOSPHORUS (BEAKER) (test code = 2.3 mg/dL 2.3-4.7 604) Roller Mill Operator ID - TALHA [id number] 04:39:00 Test Item Value Reference Range Interpretation Comments MAGNESIUM (BEAKER) (test code = 2.0 mg/dL 1.6-2.6 627) Roller Mill Operator ID - TALHA WPOCT-GLUCOSE [id number] 22:43:00 Test Item Value Reference Range Interpretation Comments POC-GLUCOSE METER 105 mg/dL 70-110 : TESTED A T [facility] 6720 (BEAKER) (test code = [facility], 153) 46481: Roller Mill Operator/Techni kimberlee ID = [id number] for JEANNE BONILLA POCT-GLUCOSE [id number] 15:31:00 Test Item Value Reference Range Interpretation Comments POC-GLUCOSE METER 111 mg/dL 70-110 H : TESTED A T [facility] 6720 (BEAKER) (test code = [facility], 1538) 78056: Roller Mill Operator/Techni kimberlee ID = [id number] for AILIN FARAH POCT-GLUCOSE [id number] 12:56:00 Test Item Value Reference Range Interpretation Comments POC-GLUCOSE METER 102 mg/dL 70-110 : TESTED A T [facility] 6720 (BEAKER) (test code = [facility], 1538) 97712: Roller Mill Operator/Techni kimberlee ID = [id number] for AILIN FARAH POCT-GLUCOSE [id number] 07:35:00 Test Item Value Reference Range Interpretation Comments POC-GLUCOSE METER 93 mg/dL 70-110 : TESTED A T [facility] 6720 (BEAKER) (test code = [facility] [employer] [facility], 1538) 22377: Roller Mill Operator/Techni kimberlee ID = [id number] for AILIN BLUM BASIC METABOLIC [id number] 04:53:00 Test Item Value Reference Range Interpretation [...] 1092) DATA TO CALCULA TE ESTIMATED GFR. Roller Mill Operator ID - [id number] 04:52:00 Test Item Value Reference Range Interpretation Comments PHOSPHORUS (BEAKER) (test code = 1.8 mg/dL 2.3-4.7 L 604) Roller Mill Operator ID - [id number] 04:52:00 Test Item Value Reference Range Interpretation Comments MAGNESIUM (BEAKER) (test code = 1.8 mg/dL 1.6-2.6 627) Roller Mill Operator ID - EDASICBC (HEMOGRAM ONLY)2019-10-07 04:28:00 Test Item Value Reference [...] 0-0 (BEAKER) (test code = 413) POCT-GLUCOSE [id number] 22:25:00 Test Item Value Reference Range Interpretation Comments POC-GLUCOSE METER 116 mg/dL 70-110 H : TESTED A T [facility] 6720 (BEAKER) (test code = [facility], 1538) 62492: Roller Mill Operator/Techni kimberlee ID = [id number] for STEPHANIE PARRY POCT-GLUCOSE [id number] 14:58:00 Test Item Value Reference Range Interpretation Comments POC-GLUCOSE METER 95 mg/dL 70-110 : TESTED A T [facility] 6720 (BEAKER) (test code = [facility], 1538) 22844: Roller Mill Operator/Techni kimberlee ID = [id number] for AILIN BLUM POCT-GLUCOSE [id number] 11:08:00 Test Item Value Reference Range Interpretation Comments POC-GLUCOSE METER 105 mg/dL 70-110 : TESTED A T [facility] 6720 (BEAKER) (test code = [facility], 153) 34419: Roller Mill Operator/Techni kimberlee ID = [id number] for AILIN FARAH POCT-GLUCOSE [id number] 07:06:00 Test Item Value Reference Range Interpretation Comments POC-GLUCOSE METER 97 mg/dL 70-110 : TESTED A T [facility] 6720 (BEAKER) (test code = [facility], 1538) 73036: Roller Mill Operator/Techni kimberlee ID = [id number] for AILIN BLUM BASIC METABOLIC [id number] 04:45:00 Test Item Value Reference Range Interpretation [...] 1092) DATA TO CALCULA TE ESTIMATED GFR. Roller Mill Operator ID - CARLOS ALBERTO [id number] 04:32:00 Test Item Value Reference Range Interpretation Comments PHOSPHORUS (BEAKER) (test code = 3.8 mg/dL 2.3-4.7 604) Roller Mill Operator ID Sven CARCAMO [id number] 04:32:00 Test Item Value Reference Range Interpretation Comments MAGNESIUM (BEAKER) (test code = 1.7 mg/dL 1.6-2.6 627) Roller Mill Operator ID Sven CARCAMO LCBC (HEMOGRAM ONLY)2019-10-06 03:57:00 Test Item Value [...] 0-0 (BEAKER) (test code = 413) POCT-GLUCOSE [id number] 21:44:00 Test Item Value Reference Range Interpretation Comments POC-GLUCOSE METER 104 mg/dL 70-110 : TESTED A T [facility] 6720 (BEAKER) (test code = [facility], [facility]8) 92555: Roller Mill Operator/Techni kimberlee ID = [id number] for LUCIUS LOAIZA POCT-GLUCOSE [id number] 15:21:00 Test Item Value Reference Range Interpretation Comments POC-GLUCOSE METER 120 mg/dL 70-110 H : TESTED A T [facility] 6720 (BEAKER) (test code = [facility], [facility]8) 58209: Roller Mill Operator/Techni kimberlee ID = [id number] for Me Deanne robfer POCT-GLUCOSE [id number] 11:29:00 Test Item Value Reference Range Interpretation Comments POC-GLUCOSE METER 92 mg/dL 70-110 : TESTED A T [facility] 6720 (BEAKER) (test code = [facility], 1538) 14203: Roller Mill Operator/Techni kimberlee ID = [id number] for Mend ezMaineKimmy POCT-GLUCOSE [id number] 07:38:00 Test Item Value Reference Range Interpretation Comments POC-GLUCOSE METER 107 mg/dL 70-110 : TESTED A T [facility] 6720 (BEAKER) (test code = [facility], [facility]) 84323: Roller Mill Operator/Techni kimberlee ID = [id number] for Me ndez, Kimmy BASIC METABOLIC [id number] 04:35:00 Test Item Value Reference Range Interpretation [...] 1092) DATA TO CALCULA TE ESTIMATED GFR. Roller Mill Operator ID - CARLOS ALBERTO [id number] 04:25:00 Test Item Value Reference Range Interpretation Comments PHOSPHORUS (BEAKER) (test code = 1.7 mg/dL 2.3-4.7 L 604) Roller Mill Operator ID - CARLOS ALBERTO [id number] 04:25:00 Test Item Value Reference Range Interpretation Comments MAGNESIUM (BEAKER) (test code = 1.9 mg/dL 1.6-2.6 627) Roller Mill Operator ID - CARLOS ALBERTO LCBC (HEMOGRAM ONLY)2019-10-05 [...] 0-0 (BEAKER) (test code = 413) POCT-GLUCOSE [id number] 21:34:00 Test Item Value Reference Range Interpretation Comments POC-GLUCOSE METER 106 mg/dL 70-110 : TESTED A T [facility] 6720 (BEAKER) (test code = [facility], 1538) 84048: Roller Mill Operator/Techni kimberlee ID = [id number] for AN STEPHANIE LAWSON POCT-GLUCOSE [id number] 15:32:00 Test Item Value Reference Range Interpretation Comments POC-GLUCOSE METER 120 mg/dL 70-110 H : TESTED A T [facility] 6720 (BEAKER) (test code = [facility], 1538) 85127: Roller Mill Operator/Techni kimberlee ID = [id number] for Kimmy Weaver SURGICALLY OBTAINED CULTURE + GRAM [id number] 13:43:00 Test Item Value Reference Range Interpretation Comments CULTURE (BEAKER) (test code No growth = 1095) GRAM STAIN RESULT (BEAKER) No WBCs (test code = 1123) GRAM STAIN RESULT (BEAKER) No organisms seen (test code = 74268) POCT-GLUCOSE [id number] 11:49:00 Test Item Value Reference Range Interpretation Comments POC-GLUCOSE METER 119 mg/dL 70-110 H : TESTED A T [facility] 6720 (BEAKER) (test code = [facility], 1538) 34447: Roller Mill Operator/Techni kimberlee ID = [id number] for Kimmy Weaver ANAEROBIC [id number] 09:09:00 Test Item Value Reference Range Interpretation Comments CULTURE (BEAKER) (test No anaerobes isolated code = 1095) POCT-GLUCOSE [id number] 07:44:00 Test Item Value Reference Range Interpretation Comments POC-GLUCOSE METER 113 mg/dL 70-110 H : TESTED A T [facility] 6720 (BEAKER) (test code = [facility], 1538) 36502: Roller Mill Operator/Techni kimberlee ID = [id number] for Kimmy Weaver [id number] 06:27:00 Test Item Value Reference Range Interpretation Comments PHOSPHORUS (BEAKER) (test code = 1.4 mg/dL 2.3-4.7 LL 604) Roller Mill Operator ID - CARLOS ALBERTO [id number] 06:02:00 Test Item Value Reference Range Interpretation Comments MAGNESIUM (BEAKER) (test code = 1.6 mg/dL 1.6-2.6 627) Roller Mill Operator ID - CARLOS ALBERTO LBASIC METABOLIC [id number] 06:02:00 Test Item Value Reference Range Interpretation [...] 1092) DATA TO CALCULA TE ESTIMATED GFR. Roller Mill Operator ID - PIFABIAN LCBC (HEMOGRAM ONLY)2019-10-04 05:00:00 Test Item Value [...] 0-0 (BEAKER) (test code = 413) POCT-GLUCOSE [id number] 21:17:00 Test Item Value Reference Range Interpretation Comments POC-GLUCOSE METER 115 mg/dL 70-110 H : TESTED A T [facility] 6720 (BEAKER) (test code = [facility] [employer] [facility], 1538) 42146: Roller Mill Operator/Techni kimberlee ID = [id number] for PAVAN PRINGLE POCT-GLUCOSE [id number] 16:16:00 Test Item Value Reference Range Interpretation Comments POC-GLUCOSE METER 108 mg/dL 70-110 : TESTED A T [facility] 6720 (BEAKER) (test code = [facility], 1538) 75673: Roller Mill Operator/Techni kimberlee ID = [id number] for YONI DOHERTY POCT-GLUCOSE [id number] 12:33:00 Test Item Value Reference Range Interpretation Comments POC-GLUCOSE METER 102 mg/dL 70-110 : TESTED A T [facility] 6720 (BEAKER) (test code = [facility], 1538) 19714: Roller Mill Operator/Techni kimberlee ID = [id number] for YONI DOHERTY RAD, ABDOMEN/KUB, 1 VIEW [id number] 09:32:00Reason for exam:->abd distentionFINAL REPORT RAD, ABDOMEN/KUB, 1 VIEW AP TECHNIQUE: Supine radiograph of the abdomen and pelvis. HISTORY: abd distention COMPARISON: CT abdomen and pelvis 09/26/2019 IMPRESSION: A single moderately dilated and gas-filled small bowel loop projects over the upper mid abdomen, focal small bowel obstruction not excluded. No pneumoperitoneum given limitations of supine technique. A surgical drain projects over the right-sided abdomen, tip projects over the epigastrium No significant stool burden in the colon. No acute osseous abnormality. Signed: Tito Pinto Verified Date/Time: 10/03/2019 09:32:02 Reading Location: [facility] Diagnostic Imaging Reading Room - [place] [address] POCT-GLUCOSE [id number] 07:33:00 Test Item Value Reference Range Interpretation Comments POC-GLUCOSE METER 118 mg/dL 70-110 H : [facility] (test code = [facility] [place], 1538) 82250: Roller Mill Operator/Techni kimberlee ID = [id number] for YONI DOHERTY BASIC METABOLIC [id number] 04:55:00 Test Item Value Reference Range Interpretation [...] 1092) DATA TO CALCULA TE ESTIMATED GFR. Roller Mill Operator ID - [id number] 04:53:00 Test Item Value Reference Range Interpretation Comments PHOSPHORUS (BEAKER) (test code = 2.4 mg/dL 2.3-4.7 604) Roller Mill Operator ID - [id number] 04:53:00 Test Item Value Reference Range Interpretation Comments MAGNESIUM (BEAKER) (test code = 1.7 mg/dL 1.6-2.6 627) Roller Mill Operator ID - EDASICBC (HEMOGRAM ONLY)2019-10-03 04:21:00 Test [...] 0-0 (BEAKER) (test code = 413) POCT-GLUCOSE [id number] 20:53:00 Test Item Value Reference Range Interpretation Comments POC-GLUCOSE METER 115 mg/dL 70-110 H : TESTED A T [facility] 6720 (BEAKER) (test code = [facility], 153) 40641: Roller Mill Operator/Techni kimberlee ID = [id number] for BETH VELARDE POCT-GLUCOSE [id number] 16:08:00 Test Item Value Reference Range Interpretation Comments POC-GLUCOSE METER 108 mg/dL 70-110 : TESTED A T [facility] 6720 (BEAKER) (test code = [facility] [employer] [facility], 153) 96353: Roller Mill Operator/Techni kimberlee ID = [id number] for AILIN FARAH BASIC METABOLIC [id number] 05:04:00 Test Item Value Reference Range Interpretation [...] 1092) DATA TO CALCULA TE ESTIMATED GFR. Roller Mill Operator ID - [id number] 04:53:00 Test Item Value Reference Range Interpretation Comments PHOSPHORUS (BEAKER) (test code = 3.6 mg/dL 2.3-4.7 604) Roller Mill Operator ID - [id number] 04:53:00 Test Item Value Reference Range Interpretation Comments MAGNESIUM (BEAKER) (test code = 1.2 mg/dL 1.6-2.6 L 627) Roller Mill Operator ID - NTPHEPATIC FUNCTION [id number] 04:53:00 Test Item Value Reference Range Interpretation [...] code = 152 U/L 6-55 H 347) Roller Mill Operator ID - NTPCBC (HEMOGRAM ONLY)2019-10-02 04:23:00 Test [...] 0-0 (BEAKER) (test code = 413) POCT-GLUCOSE [id number] 22:41:00 Test Item Value Reference Range Interpretation Comments POC-GLUCOSE METER 128 mg/dL 70-110 H : [facility] (BEAKER) (test code = [facility] [place], 1538) 94996: Roller Mill Operator/Techni kimberlee ID = [id number] for MAGO MERRILL (CELLAVISION MANUAL DIFF)2019-10-01 12:47:00 Test Item Value Reference [...] CONCENTRATION Adequate (CELLAVISION)(BEAKER) (test code = 3438) Roller Mill Operator ID - Chanda Strauss comments: Slide comments: WBC: SEGMENTED WITH TOXIC GRANULATIONS PRESENTCALCIUM, [id number] 10:15:00 Test Item Value Reference Range Interpretation Comments CALCIUM IONIZED (BEAKER) (test 1.03 mmol/L 1.12-1.27 L code = 698) PH, BLOOD (BEAKER) (test code = 7.43 1810) BLOOD GAS, [id number] 10:14:00 Test Item Value Reference Range Interpretation [...] (test code = 1819) 50.0 % GLUCOSE-STAT [id number] 10:14:00 Test Item Value Reference Range Interpretation Comments GLUCOSE RANDOM (BEAKER) (test code 166 mg/dL 70-110 H = 652) HGB/HCT (H&H) - STAT [id number] 10:14:00 Test Item Value Reference Range Interpretation Comments HEMOGLOBIN (BEAKER) (test code = 10.7 g/dL 13.0-16.8 L 410) HEMATOCRIT (BEAKER) (test code = 31.0 % 40.0-50.0 L 411) PH, [id number] 10:12:00 Test Item Value Reference Range Interpretation Comments PH ARTERIAL (BEAKER) (test code = 383) 7.45 7.35-7.45 BASIC METABOLIC [id number] 06:17:00 Test Item Value Reference Range Interpretation [...] 1092) DATA TO CALCULA TE ESTIMATED GFR. Roller Mill Operator ID - [id number] 06:12:00 Test Item Value Reference Range Interpretation Comments PHOSPHORUS (BEAKER) (test code = 2.9 mg/dL 2.3-4.7 604) Roller Mill Operator ID - [id number] 06:12:00 Test Item Value Reference Range Interpretation Comments MAGNESIUM (BEAKER) (test code = 1.2 mg/dL 1.6-2.6 L 627) Roller Mill Operator ID - EDASIHEPATIC FUNCTION [id number] 06:12:00 Test Item Value Reference Range Interpretation [...] (test code = 10 U/L 6-55 347) Roller Mill Operator ID - EDASICBC WITH PLATELET COUNT + MANUAL [id number] 05:19:00 Test Item Value Reference Range Interpretation [...] (BEAKER) (test code = 413) BASIC METABOLIC [id number] 18:24:00 Test Item Value Reference Range Interpretation [...] 1092) DATA TO CALCULA TE ESTIMATED GFR. Roller Mill Operator ID - BSCBC W/PLT COUNT & AUTO [id number] 18:09:00 Test Item Value Reference Range Interpretation [...] PERCENT (BEAKER) (test code = 2801) SARS-COV2/RT-PCR ([facility])2019-09-30 17:15:00 Test Item Value Reference Range Interpretation Comments SARS-COV2/RT-PCR (test Negative Not Detected, Negative, code = 6700919) See external report for linked test SARS-COV-2 PERFORMING LAB [facility] (test code = 9665302) Negative result for this test determines that [...] individuals suspected of COVID-19 by their healthcare provider.This test [...] 564(g) of the Act.Fact Sheet for Healthcare Pro viders:https://www.[employer]/sites/default/files/product/documents/Fact_Sheet_H L_Ryjdjxlot_Orgq_TMCL-SsZ-8.pdfFact Sheet for Healthcare Patients:https://www.[employer]/sites/default/files/product/docum ents/Mkoo_Rjfpn_Artcidmo_Lrkh_SANZ-LbR-5.pdfPerforming Laboratory:[facility], [place] [address]NFKJOY [id number] 11:59:00Surgical Pathology Report Case: [id number] Authorizing Provider: Marilee Lane MD Collected: 09/29/2019 11:20 AM Ordering Location: [address] Received: 09/29/2019 01:57 PM Service Pathologist: Binu Magallon MD Specimen: Rectum, rectal bx PART A RECTAL BIOPSY:FOCALLY ACTIVE NONSP ECIFIC COLITIS.NEGATIVE FOR GRANUMOLAS, DYSPLASIA, OR INVASIVE CARCINOMA. Signing Pathologist DirectPhone Line: [phone] signed by Binu Magallon MD on 09/30/2019 at 11:59 [id number] Rectum, description rectal biopsy One specimen is received in one part labeled with the patient's name and MR number corresponding to the requisition with the same information.Received in formalin labeled "rectum" are two conti-pink irregular pieces of tissue measuring 0.2 x 0.2 x 0.1 cm and 0.3 x 0.2 x 0.2 cm. The specimen is submitted entirely in cassette A1. MA/ewPERFORMED. [facility], Department of Pathology, [address] [place] [address], [facility]uffm[facility], [facility] of [facility], [address] [place] [address], OmdacnJohn F. [facility], Department of [facility]ology, [address] [place] [id number], BPILAD [id number] 08:35:00Surgical Pathology Report Case: [id number] Authorizing Provider: Vandana Cuenca MD Collected: 09/24/2019 01:15 PM Ordering Location: [address] Received: 09/24/2019 04:15 PM Service Pathologist: Hilda Tran MD Specimen: Duodenum, duodenal stricture biospy; STAT REASON FOR ADDENDUM: TO REPORT MMR IMMUNOHISTOCHEMISTRY:IHC testing for all four MMR proteins was performed on alonso ected block A1 with appropriate controls. RESULTS MLH1: Intact nuclear expression MSH2: Intact nuclear expression MSH6: Intact nuclear expression PMS2: Intact nuclear expression IHC Interpretation No loss of nuclear expression of MMR proteins: low probability of microsatellite instability-high (MSI-H)There are exceptions to the above IHC interpretations. These results should not be considered in isolation, and clinical correlation with genetic counseling is recommended to assess the need for germline testing.CPT CODE:[id number] electronically signed by Hilda Tran MD on 09/30/2019 at 8:35 AMA. DUODENAL STRICTURE, BIOPSY: - ADENOCARCINOMA, PREDOMINANTLY IN LYMPHOVASCULAR SPACES -POSSIBILITY OF METASTASIS SHOULD BE EXCLUDED (SEE COMMENT) Signing Pathologist Direct Phone Line: [phone] signed by Hilda Tran MD on 09/26/2019 at 9:28 AMPreliminary resultelectronically signed by Hilda Tran MD on 09/25/2019 at 11:11 AMThe tumor is predominantlyin the lymphovascular spaces. The overlying mucosa is unremarkable and shows no evidence of dysplasia. Immunostain for CK20, CDX2 and CAM5.2 are positive; CK7 is focally positive. Immunostains for synaptophysin, chromogranin are negative.Immunoprofile is not entirely specific. Possibility of metastasis from lower GI tract (or) from pancreas should be excluded.[id number] hemorrhage Duodenum, description duodenal stricture biopsy One specimen is received in one part labeled withthe patient's name and MR number corresponding to the requisition with the same information.Receivedin formalin labeled "duodenum" are four conti- pink irregular pieces of tissue measuring 0.2 cm, 0.2 cm, and 0.4 cm and 0.4 cm in greatest dimensions. The specimen is submitted entirely in cassette A1. MA/ ewPerformed.The interpretation of this case included the use of immunohistochemistry or special stains.Control Slides Examined: In-house known positive controls were evaluated along with the test tissue. These control slides run alongside of the patients sample show appropriate staining. Internal positive and negative controls when available are evaluated Immunohistochemistry technical testing was performed at [facility], Pathology Laboratory where it was developed [...] qualified to perform high complexity clinical laboratory testing.SARS-COV2/RT-PCR ([facility]) 2019-09-29 10:06:00 Test Item Value Reference Range Interpretation Comments SARS-COV2/RT-PCR (test Negative Not Detected, Negative, code = 1859839) See external report for linked test SARS-COV-2 PERFORMING LAB [facility] (test code = 7020983) Negative result for this test determines that [...] individuals suspected of COVID-19 by their healthcare provider.This test [...] justifying the authorization of the emergency use ofin vitro diagnostic tests for detection and/or diagnosis of COVID-19 is terminated under Section 564(b)(2) of the Act or the EUA is revoked under Section 564(g) of the Act.Fact Sheet for Healthcare Prov iders:https://www.[employer]/sites/default/files/product/documents/Fact_Sheet_HC _Cslqyuiaq_Dwfa_PLMR-GbF-9.pdfFact Sheet for Healthcare Patients:https://www.[employer]/sites/default/files/product/docume nts/Qava_Dwwdz_Bmubkyki_Krxt_JHWV-BvZ-1.pdfPerforming Laboratory:[facility], [place] [id number] 11:52:00 Test Item Value Reference Range Interpretation Comments SODIUM (BEAKER) (test code = 381) 134 meq/L 136-145 L POTASSIUM (BEAKER) (test code = 3.9 meq/L 3.5-5.1 379) CHLORIDE (BEAKER) (test code = 382) 104 meq/L 98-107 CO2 (BEAKER) (test code = 355) 23 meq/L 22-29 [employer] VIRGEN - YVETTE MBASIC METABOLIC [id number] 13:40:00 Test Item Value Reference Range Interpretation [...] 1092) DATA TO CALCULA TE ESTIMATED GFR. [employer] VIRGEN CRAWFORD MCBC W/PLT COUNT & AUTO [id number] 09:53:00 Test Item Value Reference Range Interpretation [...] (test code = 2801) CT, CHEST, WITH [id number] 22:43:00Unlisted Reason for Exam - Click Yes and Enter Reason Below->YesUnlisted Reason for Exam->cancer of duodonum, stagingAnesthesia:->NoneFINAL REPORT TECHNIQUE: CT of the chest with intravenous contrast and abdomen and pelvis without and WITH intravenous contrast and [...] segment two.. Gallbladder is distended. There is intraand extra hepatic biliary duct dilation. There is normal insertion of the cystic duct. SPLEEN: No splenomegaly.PANCREAS: No focal masses or ductal dilatation. ADRENALS: No adrenal nodules.KIDNEYS/URETERS: No hydronephrosis or solid mass lesions. There are multiple bilateral nonobstructing renal calculi measuring up to 3 mm in the upper pole of the right kidney.PELVIC ORGANS/BLADDER: Unremarkable. PERITONEUM/RETROPERITONEUM: Trace free pelvic fluid. No focal fluid collection or free air..LYMPH NODES:There are few mildly enlarged mesenteric and retroperitoneal [...] Bowel loops are otherwise normal in caliber withoutevidence of obstruction.. BONES AND SOFT TISSUES: Degenerative [...] MDReport Verified Date/Time: 09/26/2019 22:43:45 Reading Location: [facility] C0[facility] Transitional Reading Room CT, [id number] 22:43:00Per panc protocolReason for exam:->evaluation of duodenal neoplasm; pelase obtain CT pancreas protocolWhat is the patient's sedation requirement?->No Sedation FINAL REPORT TECHNIQUE: CT of the chest with intravenous contrast and abdomen and pelvis without and WITH intravenous contrast and WITHOUT oral contrast. Dose modulation, iterativereconstruction, and/or weight- based adjustment of the mA/kV was utilized to [...] segment two.. Gallbladder is distended. There is intraand extra hepatic biliary duct dilation. There is normal insertion of the cystic duct. SPLEEN: No splenomegaly.PANCREAS: No focal masses or ductal dilatation. ADRENALS: No adrenal nodules.KIDNEYS/URETERS: No hydronephrosis or solid mass lesions. There are multiple bilateral nonobstructing renal calculi measuring up to 3 mm in the upper pole of the right kidney.PELVIC ORGANS/BLADDER: Unremarkable. ASPEN TONEUM/RETROPERITONEUM: Trace free pelvic fluid. No focal fluid collection or free air..LYMPH NODES:There are few mildly enlarged mesenteric and retroperitoneal [...] MDReport Verified Date/Time: 09/26/2019 22:43:45 Reading Location: [address] Transitional Reading Room PET/CT, CARDIAC PERF REST AND [id number] 15:20:00Reason for exam:->preopFINAL REPORT PROCEDURE: MYOCARDIAL PERFUSION PET/CT IMAGING (Rest/Stress)CPT CODE: 77472, 58368 INDICATION: Preop risk stratification CARDIOVASCULAR PROFILE:CAD History: [place], stentSymptoms: NoneRisk Factors: Hypertension, hyperlipidemia, tobaccoBMI: 23.2Medications: Atorvastatin, Zetia, losartan STRESS PROTOCOL:Pharmacologic stress was achieved with a 10-second intravenous infusion of regadenoson 0.4 mg. The radiopharmaceutical was administered 30 seconds after the start of the re gadenoson infusion. IMAGING PROTOCOL:Limited low-dose CT imaging was performed for attenuation correction. 39.5 mCi of Rb-82 chloride was injected intravenously at rest, and gated PET images were obtained. Then, 39.2 mCi of Rb- 82 chloride was injected intravenously at peak stress, and gated PET imageswere obtained. Image quality is good. REST FINDINGS:HR: [...] no prior study for comparison. Signed: Sinan Abdiort Verified Date/Time: 09/26/201915:20:15 Reading Location: [address] Reading Room [id number] 14:30:00 Test Item Value Reference Range Interpretation Comments POTASSIUM (BEAKER) (test code = 3.4 meq/L 3.5-5.1 L 379) [employer] Operator ID - NTPCARCINOEMBRYONIC ANTIGEN (CEA)2019-09-25 19:13:00 Test Item Value Reference Range Interpretation Comments CARCINOEMBRYONIC ANTIGEN (BEAKER) 5.5 ng/mL 0.0-5.0 H (test code = 685) [employer] Operator ID - DBCT, [id number] 13:21:00Oral contrast as wellUnlisted Reason for Exam - Click Yes and Enter Reason Below->YesUnlisted Reason for Exam->duodenal stricture around L2Gmghjcef BeginsREPORT STATUS:A Addendum: Wall thickening is seen involving the descending duodenum. Please correlate clinically. Signed: Sri, Lyle MDReport Verified Date/Time: 09/25/2019 13:21:39 Reading Location: [address] Body Reading RoomAddendum EndsFINAL REPORT [...] and/or use of interactive reconstruction technique. COMMENT: Thereis trace left pleural effusion and bibasilar subsegmental [...] mesentery. The largest lymph node measures approximately 0.9x 1.3 cm. IMPRESSION: 1. Trace left pleural effusion and bibasilar subsegmental atelectasis.2. Biliary dilatation. Recommend clinical correlation or follow-up with MRCP examination.3. Nonobstructive bilateral renal stones. Signed: Lyle Fierro MDReport Verified Date/Time: 09/25/2019 10:51:28 Reading Location: [facility] C013Y CT Body Reading Room [id number] 06:13:00 Test Item Value Reference Range Interpretation Comments MAGNESIUM (BEAKER) (test code = 1.6 mg/dL 1.6-2.6 627) [employer] Operator ID - TALHA WBASIC METABOLIC [id number] 06:13:00 Test Item Value Reference Range Interpretation [...] 1092) DATA TO CALCULA TE ESTIMATED GFR. [employer] Operator ID - TALHA WCBC W/PLT COUNT & AUTO [id number] 05:32:00 Test Item Value Reference Range Interpretation [...] 0-1 PERCENT (BEAKER) (test code = 2801) [id number] 11:31:00 Test Item Value Reference Range Interpretation Comments POTASSIUM (BEAKER) (test code = 3.4 meq/L 3.5-5.1 L 379) Rol[employer] Operator ID - NTPBASIC METABOLIC [id number] 06:18:00 Test Item Value Reference Range Interpretation [...] 1092) DATA TO CALCULA TE ESTIMATED GFR. [employer] Operator ID - YVETTE [id number] 06:15:00 Test Item Value Reference Range Interpretation Comments MAGNESIUM (BEAKER) (test code = 1.7 mg/dL 1.6-2.6 627) Rol[employer] Operator ID - YVETTE MCBC W/PLT COUNT & AUTO [id number] 06:06:00 Test Item Value Reference Range Interpretation [...] PERCENT (BEAKER) (test code = 2801) SARS-COV2/RT-PCR ([facility])2019-09-23 18:26:00 Test Item Value Reference Range Interpretation Comments SARS-COV2/RT-PCR (test Negative Not Detected, Negative, code = 7434003) See external report for linked test SARS-COV-2 PERFORMING LAB [facility] (test code = 1133520) Negative result for this test determines that [...] individuals suspected of COVID-19 by their healthcare provider.This test [...] justifying the authorization of the emergency use ofin vitro diagnostic tests for detection and/or diagnosis of COVID-19 is terminated under Section 564(b)(2) of the Act or the EUA is revoked under Section 564(g) of the Act.Fact Sheet for Healthcare Prov iders:https://www.[employer]/sites/default/files/product/documents/Fact_Sheet_HC _Uzvztxyho_Yetu_URTS-MyV-5.pdfFact Sheet for Healthcare Patients:https://www.[employer]/sites/default/files/product/docume nts/Ykrh_Dgpuo_Ipdsjbnu_Ptqm_YVWC-AtO-2.pdfPerforming Laboratory:[facility].[place], [place] [id number] 15:48:00 Test Item Value Reference Range Interpretation Comments FERRITIN (BEAKER) (test code = 167.29 ng/mL 5.00-275.00 361) [employer] Operator ID - EDASIIRON, TIBC, % SAT. (WITHOUT FERRITIN)2019-09-23 15:27:00 Test Item Value Reference Range Interpretation Comments IRON (BEAKER) (test code = 547) 43.0 ug/dL 40.0-160.0 TOTAL IRON BINDING CAPACITY 123 ug/dL 250-450 L (BEAKER) (test code = 769) IRON % SATURATION (2) (BEAKER) 35 % 20-55 (test code = 2590) [employer] Operator ID - EDASIBASIC METABOLIC [id number] 07:21:00 Test Item Value Reference Range Interpretation [...] 1092) DATA TO CALCULA TE ESTIMATED GFR. [employer] Operator ID - [id number] 06:59:00 Test Item Value Reference Range Interpretation Comments MAGNESIUM (BEAKER) (test code = 1.9 mg/dL 1.6-2.6 627) [employer] Operator ID - EDASILIPID [id number] 06:59:00 Test Item Value Reference Range Interpretation Comments TRIGLYCERIDES (BEAKER) (test code = 164 mg/dL 540) CHOLESTEROL (BEAKER) (test code = 142 mg/dL 631) HDL CHOLESTEROL (BEAKER) (test code 23 mg/dL = 976) LDL CHOLESTEROL CALCULATED (BEAKER) 86 mg/dL (test code = 633) Triglyceride Reference Range: Low Risk <150 Borderline 150-199 High Risk 200- 499 Very High Risk >=500Cholesterol Reference Range: Low Risk <200 Borderline 200-239 High Risk >240HDL Cholesterol Reference Range: Low Risk >=60 High Risk <40LDL Cholesterol Reference Range: Optimal <100 Near Optimal 100-129 Borderline 130-159 High 160-189 Very High >=190 Roller Mill Operator ID - EDASITROPONIN [id number] 06:45:00 Test Item Value Reference Range Interpretation [...] failure, acidosis, acute neurological disease, and persistent tachyarrhythmia.Roller [employer] Operator ID - EDASICBC W/PLT COUNT & AUTO [id number] 06:19:00 Test Item Value Reference Range Interpretation [...] 0-1 PERCENT (BEAKER) (test code = 2801) COMPREHENSIVE METABOLIC [id number] 15:40:00 Test Item Value Reference Range Interpretation [...] 1092) DATA TO CALCULA TE ESTIMATED GFR. Rol[employer] Operator ID - FEB [id number] 15:27:00 Test Item Value Reference Range Interpretation Comments LIPASE (BEAKER) (test code = 749) 107 U/L 8-78 H Roller [employer] Operator ID - FEB [id number] 15:21:00 Test Item Value Reference Range Interpretation [...] is 2.5-3.5 for patients wiht mechanical heart valves.CBC W/PLT COUNT & AUTO [id number] 15:16:00 Test Item Value Reference Range Interpretation [...] = 2801) CBC W/PLT COUNT & AUTO [id number] 08:52:00 Test Item Value Reference Range Interpretation [...] (BEAKER) (test code = 2801) BASIC METABOLIC [id number] 06:41:00 Test Item Value Reference Range Interpretation [...] ESTIMATED GFR. CBC W/PLT COUNT & AUTO [id number] 20:31:00 Test Item Value Reference Range Interpretation [...] = 2801) CBC W/PLT COUNT & AUTO [id number] 09:40:00 Test Item Value Reference Range Interpretation [...] (BEAKER) (test code = 2801) BASIC METABOLIC [id number] 06:50:00 Test Item Value Reference Range Interpretation [...] ESTIMATED GFR. CBC W/PLT COUNT & AUTO [id number] 23:23:00 Test Item Value Reference Range Interpretation [...] = 2801) CBC W/PLT COUNT & AUTO [id number] 10:14:00 Test Item Value Reference Range Interpretation [...] (BEAKER) (test code = 2801) BASIC METABOLIC [id number] 06:07:00 Test Item Value Reference Range Interpretation [...] m DATA TO CALCULA TE ESTIMATED GFR. [id number] 05:59:00 Test Item Value Reference Range Interpretation [...] Can do this with the next CBCPROTHROMBIN [id number] 05:10:00 Test Item Value Reference Range Interpretation Comments PROTIME (BEAKER) (test code = 13.4 seconds 11.7-14.7 759) INR (BEAKER) (test code = 370) 1.1 <=5.9 RECOMMENDED COUMADIN/WARFARIN INR THERAPY RANGESSTANDARD DOSE: 2.0 - 3.0 Includes: PROPHYLAXIS for venous thrombosis, systemic embolization; TREATMENT for venous thrombosis and/or pulmonary embolus.HIGH RISK: Target INR is 2.5-3.5 for patients with mechanical heart valves.CBC W/PLT COUNT & AUTO [id number] 00:26:00 Test Item Value Reference Range Interpretation [...] PERCENT (BEAKER) (test code = 2801) TROPONIN [id number] 17:24:00 Test Item Value Reference Range Interpretation [...] = 2801) CBC W/PLT COUNT & AUTO [id number] 10:51:00 Test Item Value Reference Range Interpretation [...] PERCENT (BEAKER) (test code = 2801) TISSUE [id number] 08:07:00Surgical Pathology Report Case: [id number] Authorizing Provider: Marilee Lane MD Collected: 06/27/2018 1124 Ordering Location: [place] [address] ICU Received: 06/27/2018 1528 Pathologist: Binu Magallon MD Specimen: Biopsy, Gastric, random gastric body and antrum PART A RANDOM GASTRIC BIOPSY:ANTRAL MUCOSA WITH FOCALLY ACTIVE CHRONIC GASTRITIS.OXYNTIC MUCOSA WITH MILD CHRONIC INACTIVE GASTRITIS.NEGATIVE FOR INTESTINAL METAPLASIA, DYSPLASIA, OR INVASIVE CARCINOMA.HELICOBACTER ORGANISMS ARE IDENTIFIED ON WARTHIN STARRY SPECIAL STAIN. Signing Pathologist Direct Phone Line: [phone] signed by Binu Magallon MD on 06/28/2018 at 8:07 [id number], [id number] and postop diagnosis: melenaBiopsy, gastric, random gastric body and antrumReceived in formalin labeled with the patient's name, accession number and "biopsy, gastric" are four irregular conti soft tissue fragments ranging0.2-0.4 cm which are submitted in toto in A1. CG/pl PERFORMED. The interpretation of this case included the use of immunohistochemistry or special stains.BLOCK A1- WARTHIN STARRYControl Slides Examined: In-house known positive controls were evaluated along with the test tissue. These control slides run alongside of the patients sample show appropriate staining. Internal positive and negative controlswhen available are evaluated Immunohistochemistry technical testing was performed at [facility], Pathology Laboratory where it was developed [...] clinical laboratory testing.IRON, TIBC, % SAT. (WITHOUT FERRITIN) 2018-06-28 04:45:00 Test Item Value Reference Range Interpretation Comments IRON (BEAKER) (test code = 547) 57.0 ug/dL 40.0-160.0 TOTAL IRON BINDING CAPACITY 191 ug/dL 250-450 L (BEAKER) (test code = 769) IRON % SATURATION (2) (BEAKER) 30 % 20-55 (test code = 2590) Can do this with the next CBCPROTHROMBIN [id number] 04:34:00 Test Item Value Reference Range Interpretation Comments PROTIME (BEAKER) (test code = 14.2 seconds 11.7-14.7 759) INR (BEAKER) (test code = 370) 1.2 <=5.9 RECOMMENDED COUMADIN/WARFARIN INR THERAPY RANGESSTANDARD DOSE: 2.0 - 3.0 Includes: PROPHYLAXIS for venous thrombosis, systemic embolization; TREATMENT for venous thrombosis and/or pulmonary embolus.HIGH RISK: Target INR is 2.5-3.5 for patients with mechanical heart valves.BASIC METABOLIC [id number] 04:29:00 Test Item Value Reference Range Interpretation [...] ESTIMATED GFR. CBC W/PLT COUNT & AUTO [id number] 23:50:00 Test Item Value Reference Range Interpretation [...] PERCENT (BEAKER) (test code = 2801) TROPONIN [id number] 14:18:00 Test Item Value Reference Range Interpretation [...] acidosis, acute neurological disease, and persistent tachyarrhythmia.RETICULOCYTE [id number] 03:26:00 Test Item Value Reference Range Interpretation Comments RETICULOCYTE COUNT PCT (BEAKER) (test 2.8 % 0.5-1.8 H code = 575) RAD, CHEST, 1 VIEW, NON [id number] 03:04:00Reason for exam:->gibShould this be performed at the bedside?->YesFINAL REPORT History: GI bleed. Comparison: None. Findings: A single view of the chest is submitted. The cardiomediastinal contours are unremarkable. The lung volumes are low. There is no focal consolidation, pneumothorax, large pleural effusion or evidence of overt pulmonary edema. There is no acute bony abnormality. Signed: Alejandrina Marrufo MDReport Verified Date/Time: 06/27/201803:04:43 Reading Location: [address] Reading Room COMPREHENSIVE METABOLIC [id number] 02:57:00 Test Item Value Reference Range Interpretation [...] DATA T O CALCULATE ESTIM ATED GFR. [id number] 02:43:00 Test Item Value Reference Range Interpretation Comments PROTIME (BEAKER) (test code = 15.1 seconds 11.7-14.7 H 759) INR (BEAKER) (test code = 370) 1.3 <=5.9 PARTIAL THROMBOPLASTIN TIME 31.2 seconds 22.5-36.0 (BEAKER) (test code = 760) RECOMMENDED COUMADIN/WARFARIN INR THERAPY RANGESSTANDARD DOSE: 2.0 - 3.0 Includes: PROPHYLAXIS for venous thrombosis, systemic embolization; TREATMENT for venous thrombosis and/or pulmonary embolus.HIGH RISK: Target INR is 2.5-3.5 for patients with mechanical heart valves.PROTHROMBIN [id number] 02:42:00 Test Item Value Reference Range Interpretation Comments PROTIME (BEAKER) (test code = 15.1 seconds 11.7-14.7 H 759) INR (BEAKER) (test code = 370) 1.3 <=5.9 RECOMMENDED COUMADIN/WARFARIN INR THERAPY RANGESSTANDARD DOSE: 2.0 - 3.0 Includes: PROPHYLAXIS for venous thrombosis, systemic embolization; TREATMENT for venous thrombosis and/or pulmonary embolus.HIGH RISK: Target INR is 2.5-3.5 for patients with mechanical heart valves.LACTIC ACID, [id number] 02:39:00 Test Item Value Reference Range Interpretation Comments LACTATE BLOOD VENOUS (2) (BEAKER) 0.9 mmol/L 0.5-2.2 (test code = 2872) CBC W/PLT COUNT & AUTO [id number] 02:25:00 Test Item Value Reference Range Interpretation [...] % 0-1 PERCENT (BEAKER) (test code = 1221)
[2022-04-12] MEDS ORDERED: FAMOTIDINE 20 MG/2 ML VIAL IV ONE (19:02)
[2022-04-12] MEDS ORDERED: ONDANSETRON 4 MG/2 ML VIAL ONE ×2 (19:02→19:24)
[2022-04-12] MEDS ORDERED: NA CHLORIDE 0.9% 1,000 ML ONE (19:03)
[2022-04-12 19:09] LABS: Absolute Lymphocytes (CBC) 5.5 K/uL (0.7-4.9); Hematocrit 41.1 % (39.6-49.0); MCV 87.6 fL (80-100); MPV 8.4 fL (7.6-11.3); RBC Red Blood Cell Count 4.69 M/uL (4.33-5.43)
[2022-04-12 19:39] LABS: Albumin 3.9 g/dL (3.4-5.0); Bilirubin Direct 0.1 mg/dL (0-0.2); Bilirubin Total 0.5 mg/dL (0.2-1.0); Magnesium 2.3 mg/dL (1.6-2.4); Protein, Total 7.6 g/dL (6.4-8.2); Troponin High Sensitivity 24.4 pg/mL (<58.9)
[2022-04-12 19:48] LABS: Potassium 2.6 mmol/L (3.5-5.1)
[2022-04-12 20:30] LABS: Barbiturates NEGATIVE (NEGATIVE); Benzodiazepines NEGATIVE (NEGATIVE); Cocaine NEGATIVE (NEGATIVE); METHAMPHETAM NEGATIVE (NEGATIVE); Methadone NEGATIVE (NEGATIVE); Opiates NEGATIVE (NEGATIVE); Phencyclidine NEGATIVE (NEGATIVE); THC Cannibis NEGATIVE (NEGATIVE)
[2022-04-12] MEDS ORDERED: KCL 20 MEQ/100 mL IVPB 100 ML IV ONE (20:36)
[2022-04-12 21:01] LABS: SARS-COV-2 RT PCR NEGATIVE (NEGATIVE)
--- NOTE | 2022-04-12 21:20 | RAD REPORT ---
EXAM DESCRIPTION: [facility]04/12/2022 7:56 pm CLINICAL HISTORY: syncope COMPARISON: Head Brain Wo Cont dated 12/28/2017; Head Brain Wo Cont dated 09/05/2017Chest Single View dated 08/17/2020; Chest Single View dated 12/25/2019; Chest Single View dated 09/22/2019; Chest Single View dated 06/26/2018 TECHNIQUE: Portable AP view of the chest. FINDINGS: Central interstitial prominence, with basal predominant ground-glass opacities and small l ayering effusions. No pneumothorax. Stable right chest wall port with catheter tip projecting over th e distal SVC. The cardiomediastinal contours are unremarkable. IMPRESSION: Suspected changes of pulmonary edema as above.
--- NOTE | 2022-04-12 22:24 | RAD REPORT ---
EXAM DESCRIPTION: CT - Angio Aorta For Dissection - 04/12/2022 9:56 pm CLINICAL HISTORY: vomiting COMPARISON: Chest Abdomen Pelvis W Cont dated 04/11/2022 TECHNIQUE: Dynamically enhanced 3 mm thick images of the chest, abdomen, and upper pelvis were obtai sierra during administration of approximately 130mL Isovue 370 IV contrast. Sagittal and coronal reconst ructions as well as maximal intensity projection reconstruction were generated and reviewed per an [facility] angiography protocol. All CT scans are performed using dose optimization technique as appropriate and may include automated exposure control or mA/KV adjustment according to patient size. FINDINGS: Aorta is normal in diameter with no dissection or other acute aortic findings. Mild mixed calcified and noncalcified plaque along the descending thoracic aorta. Moderate to advanced predomina ntly noncalcified plaque along the infrarenal abdominal aorta, with plaque surface irregularity and s mall ulcerations. Up to moderate atherosclerotic changes at the origins of the renal arteries bilater ally, with mild narrowing on the left. Major aortic branches are otherwise patent. Pulmonary arteries are normal as well. No mass or infiltrate in the lung parenchyma. Left basilar nodular atelectasis No pleural thickening, pleural effusion or pneumothorax. No abnormal mediastinal or hilar mass or lymphadenopathy seen. No chest wall mass or abnormal axillar y lymphadenopathy. Celiac, SMA and renal arteries show no suspicious findings. Evaluation of the solid abdominal organs reveals bilateral nonobstructing renal calculi, at the lower poles, measuring 3 millimeter each. Sequelae of prior gastrojejunostomy and jejunojejunostomy, as we ll as cholecystectomy. Mild central pneumobilia, probably related to prior papillotomy are hepaticoje junostomy. Small bilateral inguinal hernias containing fat. No mass or abnormal lymphadenopathy. IMPRESSION: No acute abnormalities on CT angiogram of the aorta. Mixed calcified and noncalcified atherosclerotic plaque, up to advanced along the infrarenal abdomina l aorta, with plaque surface irregularity and small ulcerations. Mild narrowing of the left renal art niraj ostium. Other major branches are patent Bilateral noncalcified 3 millimeter renal calculi postsurgical changes as above.
--- NOTE | 2022-04-12 22:28 | RAD REPORT ---
EXAM DESCRIPTION: CT - Head Brain Wo Cont - 04/12/2022 9:56 pm CLINICAL HISTORY: vomiting COMPARISON: No comparisons TECHNIQUE: Noncontrast head CT images ad were obtained without IV contrast. Multiplanar reformats we re generated and reviewed. All CT scans are performed using dose optimization technique as appropriate and may include automated exposure control or mA/KV adjustment according to patient size. FINDINGS: No intracranial hemorrhage, mass, or edema. Midline structures are unremarkable. Normal ventricular caliber for age. Small focus of hypoattenuation along the left subinsular region, approaching CSF density, could repre sent a prominent perivascular space versus sequelae of a small infarct, probably chronic. Reveles-white matter differentiation is otherwise preserved, without evidence of acute infarct. No abnormal extra-a xial fluid collections. Mastoid air cells are well aerated. Small mucous retention cysts along the maxillary sinuses. No acute bony findings. IMPRESSION: No evidence of an acute territorial hemorrhage or infarct. Nonspecific small focus of hypoattenuation, left subinsular region, could represent a prominent periv ascular space versus a small infarct, probably chronic.
[2022-04-12] MEDS: NA CHLORIDE 0.9% 1,000 ML IV SCH (23:45)
[2022-04-13] MEDS ORDERED: POTASSIUM 25 MEQ EFFERV TAB ONE (00:04)
[2022-04-13] MEDS ORDERED: NA CHLORIDE 0.9% 500 ML ONE (00:04)
[2022-04-13] MEDS ORDERED: KCL 20 MEQ/100 mL IVPB 100 ML IV ONE (00:05)
[2022-04-13] MEDS ORDERED: ONDANSETRON 4 MG/2 ML VIAL IV PRN (01:30)
[2022-04-13] MEDS ORDERED: NA CHLORIDE 0.9% 1,000 ML ONE (02:27)
[2022-04-13 04:18] VITALS: BMI 55.3
[2022-04-13 05:15] LABS: Absolute Lymphocytes (CBC) 1.7 K/uL (0.7-4.9); Hematocrit 38.8 % (39.6-49.0); Lymphocytes % 21.1 % (15.3-44.8); MCV 86.8 fL (80-100); MPV 8.4 fL (7.6-11.3); RBC Red Blood Cell Count 4.47 M/uL (4.33-5.43)
[2022-04-13 05:33] LABS: Potassium 4.7 mmol/L (3.5-5.1); Troponin High Sensitivity 20.6 pg/mL (<58.9)
[2022-04-13] MEDS ORDERED: INFLUENZA VACCINE (for 6+ mo) 0.5 ML DOSE IMVAC ONE (08:00)
[2022-04-13] MEDS ORDERED: PNEUMOCOCCAL VACCINE 0.5 ML IMVAC ONE (08:00)
[2022-04-13] MEDS ORDERED: ASPIRIN 81 MG CHEWABLE TABLET ONE (08:31)
[2022-04-13] MEDS: ASPIRIN EC 81 MG TAB PO SCH (08:34)
--- NOTE | 2022-04-13 08:43 | RAD REPORT ---
EXAM DESCRIPTION: MRI - Brain W/Wo Cont - 04/13/2022 8:13 am CLINICAL HISTORY: syncope LOC COMPARISON: Head CT 04/12/2022 at 2153 hours.. TECHNIQUE: Multiplanar multisequence MRI of the brain performed before and after intravenous adminis tration of 16 mL MultiHance. FINDINGS: No evidence of acute infarct or other diffusion signal abnormality. No evidence of acute intracranial hemorrhage or abnormal extra-axial fluid collections. Mild diffuse parenchymal volume loss. Ventricular caliber otherwise within normal for age. Midline st ructures are unremarkable. Focus of left subinsular near CSF signal intensity with surrounding gliosis, suggestive a small remot e infarct. Another crescentic focus along the anterior right basal ganglia region with, probably of s imilar etiology. Other scattered subcortical and deep white matter T2/FLAIR hyperintensities, nonspec ific, but suggestive of chronic small vessel ischemic changes. No mass effect or midline shift. No suspicious intra or extra-axial enhancement. Major vascular flow voids are preserved. Mastoid air cells are well aerated. Small mucous retention cysts within the maxillary sinuses. . IMPRESSION: No acute intracranial process. No evidence of ventriculomegaly, mass effect, or abnormal enhancement. Small foci of T2 signal abnormality in the left subinsular and right anterior basal ganglia regions, may relate to remote small infarcts. Other nonspecific mild periventricular and deep white matter T2 hyperintensities, most suggestive of chronic small vessel ischemic changes.
[2022-04-13] MEDS: NA CHLORIDE 0.9% 1,000 ML IV SCH (13:05)
--- NOTE | 2022-04-13 16:19 | EKG ---
Test Date: 2022-04-13 Test Time: 12:31:07 Weir Fisherman: LINDA MEASUREMENT RESULTS: Intervals: Rate: 55 NM: 214 QRSD: 86 QT: 410 QTc: 392 [place]: P: 40 NM: 214 QRS: 0 T: 66 INTERPRETIVE STATEMENTS: Sinus bradycardia with 1st degree AV block Septal infarct, age undetermined Abnormal ECG Compared to ECG 04/12/2022 19:02:31 Sinus rhythm no longer present Myocardial infarct finding still present Electronically Signed On 04-13-22 16:18:54 IRRIGATION PUMP INSTALLER by Pako Salazar
--- NOTE | 2022-04-13 16:21 | EKG ---
Test Date: 2022-04-12 Test Time: 19:02:31 Web Press Operator Assistant: FRANKLYN MEASUREMENT RESULTS: Intervals: Rate: 71 AL: 248 QRSD: 96 QT: 406 QTc: 441 [place]: P: 54 AL: 248 QRS: -14 T: 80 INTERPRETIVE STATEMENTS: Sinus rhythm with 1st degree AV block Anterior infarct, age undetermined Abnormal ECG Compared to ECG 08/17/2020 16:14:36 First degree AV block now present Sinus tachycardia no longer present Left-axis deviation no longer present Myocardial infarct finding still present Electronically Signed On 04-13-22 16:19:36 CELL BIOLOGY SCIENTIST by Pako Salazar
[2022-04-13] MEDS ORDERED: lisinopriL 10 MG TAB PO ONE (17:08)
--- NOTE | 2022-04-13 18:20 | PN ---
The patient states he feels normal tonight. Transient ischemia is still most likely diagnosis, altho ugh seizure disorder is a possibility as he did have some involuntary micturition according to his wi fe shortly after she found him to be nonresponsive. The patient recalls nothing from the time he lef t his house that he was visiting till he was brought to the hospital almost couple of hours. Neurolo gical, basically normal tonight. We will consult Neurology and obtain an EEG. Depending on the resu lts, disposition could be made in the morning. HR/MODL Voice ID: [id number] Report ID: [id number]
--- NOTE | 2022-04-13 18:57 | CON ---
Date of Consultation: 04/13/2022 Reason For Consultation: Syncope. History Of Present Illness: A 66-year-old male with history of duodenal cancer, status post chemothe rapy, history of coronary artery disease status post stent placement, and renal artery stenosis, dysl ipidemia, hypertension, presented after he passed out. He said that he was trying to get into the ca r and his girlfriend was supposed to drive and the last thing he remembers got into the car and then passed out and then he was in the emergency room. Does not recall any symptoms. No chest pain. No shortness of breath. No palpitations and no dizziness. Past Medical History: As outlined above in HPI. Medications: Refer to reconciliation sheet for detailed list. Allergies: NO KNOWN DRUG ALLERGIES. Family History: No premature coronary artery disease or cancer. Social History: He does not smoke or drink. Does not use any drugs. Review of Systems: All systems reviewed and they were negative except what mentioned in HPI. Physical Examination: Vital Signs: Reviewed. Head and Neck: Pupils are equal, reactive to light. Intact eye movements. No JVD. No cervical lym phadenopathy. Neck is supple. Thyroid is not enlarged. Lungs: Clear to auscultation bilaterally. No rhonchi, wheezing, or crackles. No accessory muscle u se. Heart: Regular rate and rhythm. No extra sounds. Abdomen: Soft, nontender. Bowel sounds positive. No organomegaly. No masses or hernia. No rigidi ty or rebound. Extremities: No edema, clubbing, or cyanosis. Intact pulses. Skin: No rash. Neurologic: Alert, awake, oriented x3. No acute focal deficits appreciated. Investigations: On arrival; creatinine was 1.33 and potassium 2.6. Today; creatinine 1.08, potassiu m is 4.7. Troponins are negative. Assessment And Recommendations: 1.Syncope. Etiology is not clear, could be due to dehydration as creatinine was elevated and now it is better and the patient is feeling well. Monitor on telemetry for any arrhythmia and obtain echoc ardiogram tomorrow. I believe more than likely the reason for his syncope is sudden drop in blood pr essure due to dehydration. 2.Acute renal failure, resolved. Creatinine is normal. Recommend to stop the fluids. 3.Hypokalemia. This was replaced. SR/MODL Voice ID: [id number] Report ID: [id number]
[2022-04-13] MEDS ORDERED: TEMAZEPAM 15 MG CAP PO PRN (20:30)
[2022-04-13] MEDS ORDERED: cloNIDine HCL 0.1 MG TAB PO PRN (20:30)
[2022-04-13] MEDS: GABAPENTIN 300 MG CAP PO SCH (21:08)
[2022-04-13] MEDS: ATORVASTATIN 40 MG TAB PO SCH (21:08)
[2022-04-14] MEDS: PANTOPRAZOLE 40MG TABLET PO SCH (06:09)
[2022-04-14] MEDS: LOSARTAN POTASSIUM 50 MG TABLET PO SCH (09:27)
[2022-04-14] MEDS: GABAPENTIN 300 MG CAP PO SCH ×3 (09:27→21:16)
[2022-04-14] MEDS: ASPIRIN EC 81 MG TAB PO SCH (09:27)
--- NOTE | 2022-04-14 12:02 | PN ---
Date of Progress Note: 04/14/2022 The patient was down for EEG when I made rounds. When discussed with the , she said she feels he is back to baseline, seen by Cardiology, awaiting an echo as well. If EEG is normal and the echo is normal, I think he could be discharged to follow up next week with blood pressure reading, which he has not been monitoring at home. Depending on the results of the 2 ultrasound tests, definitive diag nosis will be made. His chemistries are back to normal. I suspect over dehydration problem, as his states he has been working on site. Had some beer prior to this episode. Other possibility is transient global ischemia. He will be seen by Neurology later today. HR/MODL Voice ID: [id number] Report ID: [id number]
--- NOTE | 2022-04-14 13:38 | ECHO ---
HEIGHT: 5 ft 11 in WEIGHT: 396 lb 13.313 oz DATE OF STUDY: 04/14/[address]: Pako Salazar 2-DIMENSIONAL: YES M.MODE: YES DOPPLER: YES COLOR FLOW: YES TDS: NO PORTABLE: YES DEFINITY: NO BUBBLE STUDY: NO DIAGNOSIS: SYNCOPE CARDIAC HISTORY: CATHERIZATION: SURGERY: PROSTHETIC VALVE: PACEMAKER: MEASUREMENTS (cm) DIASTOLIC (NORMALS) SYSTOLIC (NORMALS) IVSd 1.0 (0.6-1.2) LA Diam 3.9 (1.9-4.0) LVEF 68% LVIDd 4.0 (3.5-5.7) LVIDs 2.5 (2.0-3.5) %FS 37% LVPWd 1.3 (0.6-1.2) Ao Diam 2.7 (2.0-3.7) 2 DIMENSIONAL ASSESSMENT: RIGHT ATRIUM: NORMAL LEFT ATRIUM: NORMAL RIGHT VENTRICLE: NORMAL LEFT VENTRICLE: NORMAL TRICUSPID VALVE: NORMAL MITRAL VALVE: MILD MR PULMONIC VALVE: NORMAL AORTIC VALVE: NORMAL PERICARDIAL EFFUSION: NONE AORTIC ROOT: NORMAL LEFT VENTRICULAR WALL MOTION: NORMAL DOPPLER/COLOR FLOW: SEE BELOW. COMMENTS: 1. NORMAL LEFT VENTRICULAR EJECTION FRACTION 60-65% WITH NORMAL WALL MOTION. 2. MILD MITRAL REGURGITATION. 3. GRADE I DIASTOLIC DYSFUNCTION. TECHNOLOGIST: Arnoldo MARLEY
--- NOTE | 2022-04-14 16:07 | PN ---
Date of Progress Note: 04/14/2022 Subjective: Seen by bedside. Doing well. No new complaints. Review of Systems: No chest pain, shortness of breath, orthopnea, cough. No nausea, vomiting, diarrhea. All other syst ems reviewed and they were negative. Physical Examination: Vital Signs: Reviewed. Head and Neck: Pupils are equal, reactive to light. Intact eye movements. No JVD. No cervical lym phadenopathy. Neck is supple. Thyroid is not enlarged. Lungs: Clear to auscultation bilaterally. No rhonchi, wheezing, or crackles. No accessory muscle u se. Heart: Irregular. No extra sounds. Abdomen: Soft, nontender. Bowel sounds positive. No organomegaly. No masses or hernia. No rigidi ty or rebound. Extremities: No clubbing or cyanosis. Intact pulses. Skin: No rash. Neurologic: Alert, awake. No acute focal deficits appreciated. Investigations: BUN 14, creatinine 1.08, and hemoglobin 13.3. Assessment And Recommendations: 1.Syncope, likely due to dehydration. After proper fluid management, he is asymptomatic anymore. N o cardiac arrhythmias seen and echo has normal ejection fraction. No significant valvular disease. 2.Acute renal failure due to dehydration and this is resolved. Cardiology will sign off on the case and the patient can follow up as an outpatient basis. /STEVEN Voice ID: [id number] Report ID: [id number]
[2022-04-14] MEDS: ATORVASTATIN 40 MG TAB PO SCH (21:16)
[2022-04-15 03:58] VITALS: O2SAT 97
[2022-04-15] MEDS: PANTOPRAZOLE 40MG TABLET PO SCH (07:28)
[2022-04-15] MEDS: ASPIRIN EC 81 MG TAB PO SCH (08:15)
[2022-04-15] MEDS: LOSARTAN POTASSIUM 50 MG TABLET PO SCH (08:15)
[2022-04-15] MEDS: GABAPENTIN 300 MG CAP PO SCH (08:15)
[2022-04-15 12:14] VITALS: BP 154/70; TEMP 97.5
--- NOTE | 2022-04-15 13:43 | PN ---
Date of Progress Note: 04/15/2022 The patient is back to baseline. EEG normal. Echo, minimal changes. Since blood alcohol level was 80, everything else was normal. On more direct questioning, he felt he could have had more than just his 3 beers, which is what he thought was when he came in. I suspect this is the significant factor for the entire episode. He was advised to stop drinking, and he was discharged. Continue on his [facility] medicine. Come and see me in a couple of days. HR/MODL Voice ID: [id number] Report ID: [id number]
--- NOTE | 2022-04-24 14:14 | EEG ---
CHART: [id number] TEST ID#: [id number] DATE OF STUDY: 04/14/2022 THE EEG WAS RECORDED IN THE EEG LABORATORY ON A 17 CHANNEL MACHINE. ELECTRODES WERE APPLIED IN THE USUAL MANNER USING THE INTERNATIONAL 10-20 SYSTEM. THE WAKING BACKGROUND RHYTHM IN THIS RECORD CONSISTS OF WELL DEVELOPED AND WELL ORGANIZED WAVES OF 9 HZ., MAXIMAL IN THE POSTERIOR HEAD REGIONS WHICH ATTENUATE NORMALLY WITH EYE OPENING. LOW-VOLTAGE 18-22 HZ ACTIVITY IS EXPRESSED IN THE FROTNAL REGIONS. THERE ARE NO FOCAL OR LATERALIZING FEATURES. NO EPILEPTIFORM ACTIVITY APPEARS. SLEEP OCCURRED NATURALLY. IN ADDITION NORMAL SLEEP PATTERNS ARE PRESENT. HYPERVENTILATION WAS NOT PERFORMED. PHOTIC STIMULATION PRODUCED FAIR DRIVING BILATERALLY. IMPRESSION: NORMAL EEG FOR THE AGE OF THE PATIENT IN [place], DROWSINESS AND SLEEP.
--- NOTE | 2022-04-28 15:29 | ER ---
Nurse's Notes [facility] Name: Mp Moreno Age: 66 yrs Sex: Male : 1955 Arrival Date: 04/12/2022 Time: 18:38 Bed 8 Private MD: Archie Blunt Diagnosis: Syncope;Hypokalemia Presentation: 04/12 18:38 Chief complaint: Spouse and/or significant other states: "We were on our way to get ss something to eat after a few beers and he just slumped over in the car and used the restroom on himself.". Coronavirus screen: Client denies travel out of the [place] in the last 14 days. Ebola Screen: Patient denies exposure to infectious person. Patient denies travel to an Ebola-affected area in the 21 days before illness onset. Initial Sepsis Screen: Does the patient meet any 2 criteria? No. Patient's initial sepsis screen is negative. Does the patient have a suspected source of infection? No. Patient's initial sepsis screen is negative. Risk Assessment: Do you want to hurt yourself or someone else? Patient reports no desire to harm self or others. Onset of symptoms was April 12, 2022. 18:38 Method Of Arrival: Wheelchair ss 18:38 Acuity: ANTONETTE 1 ss Historical: - Allergies: 18:49 NKDA; ss - PMHx: 18:49 High Cholesterol; Hyperlipidemia; Hypertension; Kidney stones; Myocardial infarction; ss PUD; Cancer (In Remission); - Immunization history:: Adult Immunizations unknown. - Social history:: Smoking status: Patient reports the use of cigarette tobacco products, smokes one pack cigarettes per day. Screenin:12 [facility] ED Fall Risk Assessment (Adult) History of falling in the last 3 months, bp including since admission No falls in past 3 months (0 pts). Abuse screen: Denies threats or abuse. Denies injuries from another. Nutritional screening: No deficits noted. Tuberculosis screening: No symptoms or risk factors identified. Assessment: 19:47 Reassessment: potassium 2.6, provider notified. vc1 20:12 General: Appears in no apparent distress. comfortable, Behavior is calm, cooperative, bp flat. Pain: Denies pain. Neuro: [place] Agitation-Sedation Scale (RASS): -1 Drowsy Level of Consciousness is awake, obeys commands, Oriented to person, place, time, situation. Cardiovascular: No deficits noted. Denies chest pain, shortness of breath, Capillary refill < 3 seconds Clubbing of nail beds is absent JVD is absent Patient's skin is warm and dry. Respiratory: No deficits noted. Airway is patent Trachea midline Respiratory effort is even, unlabored, Respiratory pattern is regular, symmetrical. GI: Abdomen is flat, non-distended, Reports nausea, vomiting. : No deficits noted. No signs and/or symptoms were reported regarding the genitourinary system. EENT: No deficits noted. No signs and/or symptoms were reported regarding the EENT system. Derm: No deficits noted. No signs and/or symptoms reported regarding the dermatologic system. Skin is intact, is healthy with good turgor, Skin is dry, Skin is normal, Skin temperature is warm. Musculoskeletal: No deficits noted. Circulation, motion, and sensation intact. Range of motion: intact in all extremities. 21:24 Reassessment: Patient appears in no apparent distress at this time. No changes from bp previously documented assessment. Patient and/or family updated on plan of care and expected duration. Pain level reassessed. Patient is alert, oriented x 3, equal unlabored respirations, skin warm/dry/pink. 22:46 Reassessment: Patient appears in no apparent distress at this time. No changes from bp previously documented assessment. Patient and/or family updated on plan of care and expected duration. Pain level reassessed. Patient is alert, oriented x 3, equal unlabored respirations, skin warm/dry/pink. 04/13 00:46 Reassessment: Patient appears in no apparent distress at this time. No changes from lg3 previously documented assessment. Patient and/or family updated on plan of care and expected duration. Pain level reassessed. Patient is alert, oriented x 3, equal unlabored respirations, skin warm/dry/pink. Vital Signs: 04/12 18:38 BP 177 / 111; Pulse 79; Resp 22; Pulse Ox 95% on R/A; Pain 0/10; ss 20:12 BP 147 / 83; Pulse 67; Resp 17; Pulse Ox 96% on R/A; bp 22:46 BP 125 / 89; Pulse 83; Resp 19 S; Pulse Ox 97% ; bp 04/13 00:47 BP 129 / 75; Pulse 70; Resp 18 S; Pulse Ox 97% on R/A; lg3 04/12 18:38 Pain Scale: Adult ss NIH Stroke Scale Scores: 04/12 19:10 NIHSS Score: 0 cp ED Course: 18:38 Patient arrived in ED. mr 18:38 Archie Blunt MD is Private Physician. mr 18:45 Inserted saline lock: 18 gauge in left EJ, using aseptic technique. Blood collected. bp 18:46 Livan Goldstein DO is Attending Physician. ms3 18:46 Isidro Bowens PA is PHCP. ms3 18:48 Ayaz Conde, RN is Primary Nurse. bp 18:49 Triage completed. ss 18:49 Arm band placed on right wrist. ss 19:58 XRAY Chest (1 view) In Process Unspecified. EDMS 20:09 UDS Sent. bp 20:09 COVID-19/FLU A+B Sent. bp 20:12 Patient has correct armband on for positive identification. Placed in gown. Bed in low bp position. Call light in reach. Side rails up X 1. Client placed on continuous cardiac and pulse oximetry monitoring. NIBP monitoring applied. compliance monitor on. Door closed. Noise minimized. Warm blanket given. Pillow given. 21:25 Lab(s) recollected, by me, sent to lab. Accessed peripheral vein via ultrasound, bb utilizing dynamic ultrasound technique Powerglide midline 20g 10cm to right upper arm using hospital protocol with good blood return and flushes easily pt tolerated well. 21:58 CT Head Brain wo Cont In Process Unspecified. EDMS 21:58 CT Aorta for Dissection In Process Unspecified. EDMS 23:22 Archie Blunt MD is Hospitalizing Provider. cp 04/13 00:02 , azra Hammonds number to be notified of any changes to pt. [phone]. rv1 04:46 No provider procedures requiring assistance completed. Patient admitted, IV remains in lg3 place. intact, No redness/swelling at site. 04:48 Troponin High Sensitivity Sent. lg3 04:48 Troponin High Sensitivity Sent. lg3 04:48 Basic Metabolic Panel Sent. lg3 04:48 CBC with Automated Diff Sent. lg3 07:07 Primary Nurse role handed off by Ayaz Conde, RN eb 08:23 Sabina Chavez, SONALI is Primary Nurse. ll1 Administered Medications: 04/12 19:09 Drug: NS 0.9% IV 500 ml Volume: 500 ml; Route: IV; Rate: 1 bolus; Site: left jugular; bp 04/13 04:46 Follow up: IV Status: Completed infusion; IV Intake: 500ml lg3 04/12 19:09 Drug: Ondansetron IVP 4 mg Route: IVP; Site: left jugular; bp 04/13 11:40 Follow up: Response: No adverse reaction ll1 04/12 19:09 Drug: Famotidine IVP 20 mg Route: IVP; Site: left jugular; bp 04/13 11:40 Follow up: Response: No adverse reaction 1 04/12 19:10 Drug: NS 0.9% IV 500 ml Route: IV; Rate: 100 ml/hr; Site: left jugular; bp 04/13 04:46 Follow up: IV Status: Completed infusion; IV Intake: 500ml lg3 04/12 19:20 Drug: Ondansetron IVP 4 mg {Note: EJ.} Route: IVP; Site: Other; ha1 03 04:45 Follow up: Response: No adverse reaction; Marked relief of symptoms lg3 04/12 20:34 Drug: Potassium Chloride IV 20 mEq Route: IV; Rate: calculated rate; Site: left jugular;bp 22:46 Follow up: IV Status: Completed infusion bp 04/13 00:10 Drug: Potassium Chloride IV 20 mEq {Note: IJ.} Route: IV; Rate: calculated rate; Site: [facility] Other; 04:45 Follow up: IV Status: Completed infusion; IV Intake: 100ml lg3 00:10 Drug: Potassium PO Effervescent Tablet 50 mEq Route: PO; ha1 04:45 Follow up: Response: No adverse reaction lg3 Medication: 04:47 VIS not applicable for this client. lg3 Intake: 04:45 IV: 100ml; Total: 100ml. lg3 04:46 IV: 500ml; Total: 600ml. lg3 04:46 IV: 500ml; Total: 1100ml. lg3 Outcome: 04/12 23:23 Decision to Hospitalize by Provider. 04/13 04:46 Admitted to ER Hold. Please see [facility] for further documentation. lg3 Condition: stable Instructed on the need for admit, Demonstrated understanding of instructions. 12:10 Patient left the ED. eb NIH Stroke Scale - NIH Stroke Score Date: 04/12/2022 Time: 19:10 Total Score = 0 10. Dysarthria (speech clarity - read or repeat words) - 0(Normal) 11. Extinction and Inattention (visual/tactile/auditory/spatial/personal) - 0(No abnormality) 1a. Level of Consciousness (LOC) - 0(Alert) 1b. Level of Consciousness (LOC) (Month \\T\\ Age) - 0(Both) 1c. LOC Commands (Open \\T\\ Closes Eyes/Hose Coupling Joiner) - 0(Both) 2. Best Gaze (Lateral Gaze Paresis) - 0(Normal) 3. Visual Field Loss - 0(No visual loss) 4. Facial Palsy - 0(Normal) 5a. Left Arm: Motor (10-second hold) - 0(No drift) 5b. Right Arm: Motor (10-second hold) - 0(No drift) 6a. Left Leg: Motor (5-second hold - always test supine) - 0(No drift) 6b. Right Leg: Motor (5-second hold - always test supine) - 0(No drift) 7. Limb Ataxia (finger/nose \\T\\ heel/[place] - test with eyes open) - 0(Absent) 8. Sensory Loss (pinprick arms/legs/face) - 0(Normal) 9. Best Language: Aphasia (description/naming/reading) - 0(No aphasia) Initials: cp Signatures: Dispatcher [employer] [facility] Janell SultanaSusan RN Danna Mitchell RN RN ss Page, Corey, PA PA cp Ayaz Conde, RN Mayiln Schwarz Lacie, RN RN lg3 Sabina Chavez RN RN ll1 Livan Goldstein DO DO ms3 Gita May RN RN vc1 Karla Pringle RN RN ha1 Christine Almanza rv1
--- NOTE | 2022-04-28 15:30 | EDPHYS ---
Physician Documentation [facility] Name: Mp Moreno Age: 66 yrs Sex: Male : 1955 Arrival Date: 04/12/2022 Time: 18:38 Bed 8 Private MD: Archie Blunt ED Physician Livan Goldstein HPI: 04/12 18:55 This 66 yrs old Male presents to ER via Wheelchair with complaints of cp Unresponsive. 18:55 The patient's problem is reported as syncope, syncope. Onset: The symptoms/episode cp began/occurred today, less than 1 hour ago. Duration: This was a single incident. Context: the episode(s) was witnessed, by a significant other, girlfriend, occurred at home, occurred while the patient was eating. Associated signs and symptoms: Pertinent positives: nausea, vomiting, Pertinent negatives: abdominal pain, chest pain. Patient's baseline: Neuro: alert and fully oriented, Motor: no deficits, Ambulation: walks without assistance. 18:55 Severity of symptoms: in the emergency department the symptoms have improved mildly. cp Historical: - Allergies: 18:49 NKDA; ss - PMHx: 18:49 High Cholesterol; Hyperlipidemia; Hypertension; Kidney stones; Myocardial infarction; ss PUD; Cancer (In Remission); - Immunization history:: Adult Immunizations unknown. - Social history:: Smoking status: Patient reports the use of cigarette tobacco products, smokes one pack cigarettes per day. ROS: 19:00 Constitutional: Negative for fever. cp 19:00 Cardiovascular: Negative for chest pain. cp 19:00 Respiratory: Negative for cough, shortness of breath, wheezing. 19:00 Abdomen/GI: Positive for nausea and vomiting, Negative for diarrhea, constipation, hematemesis, black/tarry stool, rectal bleeding. 19:00 : Positive for bladder incontinence 19:00 Neuro: Positive for syncope, weakness. 19:00 Eyes: Negative for injury, pain, redness, and discharge. cp 19:00 ENT: Negative for drainage from ear(s), ear pain, sore throat, difficulty swallowing, cp difficulty handling secretions. 19:00 MS/extremity: Negative for injury or acute deformity. 19:00 All other systems are negative. Exam: 19:05 Constitutional: The patient appears in no acute distress, alert, awake, cp non-diaphoretic, non-toxic, well developed, well nourished. 19:05 Head/Face: Normocephalic, atraumatic. cp 19:05 Eyes: Periorbital structures: appear normal, Pupils: equal, round, and reactive to light and accomodation, Conjunctiva: normal, no exudate, no injection, Sclera: no appreciated abnormality, Lids and lashes: appear normal, bilaterally. 19:05 ENT: External ear(s): are unremarkable, Ear canal(s): are normal, clear, TM's: are normal, no evidence of bulging, no erythema, Nose: is normal, Mouth: Lips: moist, Oral mucosa: pink and intact, moist, Posterior pharynx: is normal, airway is patent, no erythema, no exudate. 19:05 Neck: ROM/movement: is normal, is supple, without pain, no range of motions limitations, no meningismus. 19:05 Chest/axilla: Inspection: normal, Palpation: is normal, no crepitus, no tenderness. 19:05 Cardiovascular: Rate: normal, Rhythm: regular, Edema: is not appreciated, JVD: is not appreciated. 19:05 Respiratory: the patient does not display signs of respiratory distress, Respirations: normal, no use of accessory muscles, no retractions, labored breathing, is not present, Breath sounds: are clear throughout, no decreased breath sounds, no stridor, no wheezing. 19:05 Abdomen/GI: Inspection: abdomen appears normal, Palpation: abdomen is soft and non-tender, in all quadrants. 19:05 Back: pain, is absent, ROM is normal. 19:05 Neuro: Orientation: to person, place \T\ time. Mentation: able to follow commands, slow to respond, Motor: moves all fours, general weakness with no focal deficits, Sensation: no obvious gross deficits. 19:08 ECG was reviewed by the Attending Physician. cp Vital Signs: 18:38 BP 177 / 111; Pulse 79; Resp 22; Pulse Ox 95% on R/A; Pain 0/10; ss 20:12 BP 147 / 83; Pulse 67; Resp 17; Pulse Ox 96% on R/A; bp 22:46 BP 125 / 89; Pulse 83; Resp 19 S; Pulse Ox 97% ; bp 03/09 00:47 BP 129 / 75; Pulse 70; Resp 18 S; Pulse Ox 97% on R/A; lg3 04/12 18:38 Pain Scale: Adult ss NIH Stroke Scale Scores: 04/12 19:10 NIHSS Score: 0 cp MDM: 18:48 Patient medically screened. ms3 22:33 Data reviewed: vital signs, nurses notes, lab test result(s), EKG, radiologic studies, cp CT scan, plain films. 22:33 I considered the following discharge prescriptions or medication management in the emergency department Medications were administered in the Emergency Department. See MAR. Historians other than the Patient: Spouse/Significant Other: girlfriend provides HPI. Care significantly affected by the following chronic conditions: Hypertension. 23:20 Management of patient was discussed with the following: Primary Care Provider: DR forrest Blunt who will admit patient after discussion of labs, EKG and radiology studies. 04/12 18:47 Order name: Basic Metabolic Panel; Complete Time: 19:51 ms3 04/12 19:51 Interpretation: Normal except: K 2.6; GLUC 128; CRE 1.33; GFR 59. cp 04/12 18:47 Order name: CBC with Diff; Complete Time: 19:15 ms3 04/12 20:01 Interpretation: Normal except: WBC 12.70. cp 04/12 18:47 Order name: LFT's; Complete Time: 19:51 ms3 04/12 18:47 Order name: Magnesium; Complete Time: 19:51 ms3 04/12 18:47 Order name: Troponin HS; Complete Time: 19:51 ms3 04/12 19:00 Order name: COVID-19/FLU A+B; Complete Time: 21:27 cp 04/12 19:17 Order name: ETOH Level; Complete Time: 22:01 cp 04/12 22:01 Interpretation: ETOH 80; Reviewed. cp 04/12 19:17 Order name: UDS; Complete Time: 21:27 cp 04/12 23:55 Order name: Basic Metabolic Panel EDMS 04/12 23:55 Order name: Basic Metabolic Panel; Complete Time: 06:50 EDMS 04/12 23:55 Order name: CBC with Automated Diff EDMS 04/12 23:55 Order name: CBC with Automated Diff; Complete Time: 06:50 EDMS 04/12 23:55 Order name: Troponin High Sensitivity EDMS 04/12 23:55 Order name: Troponin High Sensitivity EDMS 04/12 23:55 Order name: Troponin High Sensitivity EDMS 04/12 23:55 Order name: Troponin High Sensitivity EDMS 04/13 05:34 Order name: Troponin High Sensitivity; Complete Time: 06:50 EDMS 04/12 18:47 Order name: XRAY Chest (1 view); Complete Time: 21:27 ms3 04/12 18:47 Order name: CT Head Brain wo Cont; Complete Time: 22:29 ms3 04/12 19:17 Order name: CT Aorta for Dissection; Complete Time: 22:29 cp 04/12 23:59 Order name: Brain W/Wo Cont EDMS 04/12 18:47 Order name: EKG; Complete Time: 18:48 ms3 04/12 23:55 Order name: CONS Physician Consult EDMS 04/12 23:55 Order name: Regular EDMS 04/12 23:55 Order name: EKG Electrocardiogram EDMS 04/12 23:55 Order name: EKG Electrocardiogram EDMS 04/12 23:55 Order name: EKG Electrocardiogram EDMS 04/12 23:55 Order name: EKG Electrocardiogram EDMS 04/12 23:55 Order name: EKG Electrocardiogram EDMS 04/12 18:47 Order name: Cardiac monitoring; Complete Time: 18:49 ms3 04/12 18:47 Order name: EKG - Nurse/Tech; Complete Time: 19:10 ms3 04/12 18:47 Order name: IV Saline Lock; Complete Time: 18:49 ms3 04/12 18:47 Order name: Labs collected and sent; Complete Time: 19:10 ms3 04/12 18:47 Order name: O2 Per Protocol; Complete Time: 18:49 ms3 04/12 18:47 Order name: O2 Sat Monitoring; Complete Time: 18:49 ms3 04/12 22:31 Order name: Swallow Screen; Complete Time: 01:30 cp EC:08 Rate is 71 beats/min. Rhythm is regular. AL interval is prolonged at 248 msec. QRS cp interval is normal. QT interval is normal. T waves are Inverted in lead aVR. Interpreted by me. Reviewed by me. Administered Medications: 19:09 Drug: NS 0.9% IV 500 ml Volume: 500 ml; Route: IV; Rate: 1 bolus; Site: left jugular; bp 04/13 04:46 Follow up: IV Status: Completed infusion; IV Intake: 500ml lg3 04/12 19:09 Drug: Ondansetron IVP 4 mg Route: IVP; Site: left jugular; bp 04/13 11:40 Follow up: Response: No adverse reaction ll1 04/12 19:09 Drug: Famotidine IVP 20 mg Route: IVP; Site: left jugular; bp 04/13 11:40 Follow up: Response: No adverse reaction 1 04/12 19:10 Drug: NS 0.9% IV 500 ml Route: IV; Rate: 100 ml/hr; Site: left jugular; bp 04/13 04:46 Follow up: IV Status: Completed infusion; IV Intake: 500ml lg3 04/12 19:20 Drug: Ondansetron IVP 4 mg {Note: EJ.} Route: IVP; Site: Other; [facility] 04/13 04:45 Follow up: Response: No adverse reaction; Marked relief of symptoms lg3 04/12 20:34 Drug: Potassium Chloride IV 20 mEq Route: IV; Rate: calculated rate; Site: left jugular;bp 22:46 Follow up: IV Status: Completed infusion bp 04/13 00:10 Drug: Potassium Chloride IV 20 mEq {Note: IJ.} Route: IV; Rate: calculated rate; Site: [facility] Other; 04:45 Follow up: IV Status: Completed infusion; IV Intake: 100ml lg3 00:10 Drug: Potassium PO Effervescent Tablet 50 mEq Route: PO; [facility] 04:45 Follow up: Response: No adverse reaction lg3 Disposition: 04/12 19:25 Co-signature as Attending PhysicianIsidro I was immediately available onsite ms3 in the emergency department for consultation in the care of the patient . Disposition Summary: 04/12/22 23:23 Hospitalization Ordered Hospitalization Status: Inpatient Admission cp Provider: Archie Blunt cp Condition: Stable cp Problem: new cp Symptoms: have improved cp Bed/Room Type: Standard cp Location: Telemetry/MedSurg (Inpatient)(04/13/22 11:00) jl7 Room Assignment: 411(04/13/22 11:00) jl7 Diagnosis - Syncope cp - Hypokalemia cp Forms: - Medication Reconciliation Form cp - SBAR form cp NIH Stroke Scale - NIH Stroke Score Date: 04/12/2022 Time: 19:10 Total Score = 0 10. Dysarthria (speech clarity - read or repeat words) - 0(Normal) 11. Extinction and Inattention (visual/tactile/auditory/spatial/personal) - 0(No abnormality) 1a. Level of Consciousness (LOC) - 0(Alert) 1b. Level of Consciousness (LOC) (Month \T\ Age) - 0(Both) 1c. LOC Commands (Open \T\ Closes Eyes/Jockey Agent) - 0(Both) 2. Best Gaze (Lateral Gaze Paresis) - 0(Normal) 3. Visual Field Loss - 0(No visual loss) 4. Facial Palsy - 0(Normal) 5a. Left Arm: Motor (10-second hold) - 0(No drift) 5b. Right Arm: Motor (10-second hold) - 0(No drift) 6a. Left Leg: Motor (5-second hold - always test supine) - 0(No drift) 6b. Right Leg: Motor (5-second hold - always test supine) - 0(No drift) 7. Limb Ataxia (finger/nose \T\ heel/[place] - test with eyes open) - 0(Absent) 8. Sensory Loss (pinprick arms/legs/face) - 0(Normal) 9. Best Language: Aphasia (description/naming/reading) - 0(No aphasia) Initials: cp Signatures: Dispatcher [employer] EDMS Danna Valles RN RN ss Isidro Bowens PA PA cp Ly Moncada RN RN jl7 Ayaz Conde RN RN bp Basinger, Emily RN RN eb1 Jade Multani RN RN lg3 Livan Goldstein, DO ms3 Karla Pringle RN RN ha1 Rubén Hastings MD MD bs3 Sabina Chavez RN ll1 Corrections: (The following items were deleted from the chart) 04/13 01:32 04/12 23:23 Telemetry/MedSurg (Inpatient) cp eb1 04/13 01:32 [id number] 23:23 cp eb1 04/13 11:00 01:32 [facility] ER HOLD eb1 jl7 11:00 01:32 ERHOLD- eb1 jl7 04/14 06:04 04/12 18:55 Onset: The symptoms/episode began/occurred just prior to arrival, cpcp
== END 2022-04-15 13:39 | disposition home or self-care (01) | DRG 641 ==
LOC: ER 18:37 → ERHOLD 04-13 00:40 → 4TH 04-13 11:46
PROVIDERS: ADMIT Family Medicine; ATTEND Family Medicine
DX: E86.0 Dehydration (principal); N17.9 Acute kidney failure, unspecified; E78.5 Hyperlipidemia, unspecified; I10 Essential (primary) hypertension; E87.6 Hypokalemia; I25.10 Atherosclerotic heart disease of native coronary artery without angina pectoris; Z95.5 Presence of coronary angioplasty implant and graft; Z85.068 Personal history of other malignant neoplasm of small intestine; Z20.822 Contact with and (suspected) exposure to COVID-19
CPT/HCPCS: 0240U; 36415; 70450; 70553; 71045; 71275; 74175; 80048; 80076; 80307; 83735; 84484; 85025; 93005; 93306; 95819; 99291; 99292; A9577; G0480; J2405; J3480; J7030; J7040; Q9967

== ENCOUNTER 2023-11-06 18:22 | Emergency (ER) | payer OTHER ==
--- NOTE | 2023-11-06 20:57 | EDPHYS ---
Physician Documentation [facility] Name: Mp Moreno Age: 68 yrs Sex: Male : 1955 Arrival Date: 11/06/2023 Time: 18:22 Bed DX1 Private MD: ED Physician Tam Rossi HPI: 11/05 20:53 This 68 yrs old Male presents to ER via Ambulatory with complaints of Neck sp3 Pain, >24Hrs Old. 20:53 68-year-old male with PMH above including hypertension, ME, PVD on Protonix now sp3 presents to the ED with left sided trapezius muscle pain especially on lateral rotation. Patient denies any direct trauma, vigorous movement or any other related symptoms. He denies pain on flexion, URI symptoms, fever, neck stiffness per se, chest pain, shortness of breath, back pain, rash, lymph node swelling, known sick contacts, travel history, or any other signs or symptoms on ROS at this time. Patient states that he "might of slept on it weird". He has taken no medications OTC or otherwise to alleviate his pain. He has tried ice x 1 that did not help. Symptoms been going on for approximate 2 to 3 days and are little better than yesterday but still present. Review of systems otherwise negative.. Historical: - Allergies: 18:46 NKDA; tm6 - PMHx: 18:46 High Cholesterol; Hyperlipidemia; Hypertension; Kidney stones; Myocardial infarction; tm6 PUD; Cancer (In Remission); - PSHx: 18:46 Cholecystectomy; resection of intestines; Appendectomy; tm6 - Immunization history:: Client reports receiving the 2nd dose of the Covid vaccine. - Infectious Disease History:: Denies. - Social history:: Smoking status: Patient denies any tobacco usage or history of. Patient/guardian denies using alcohol. ROS: 20:55 Constitutional: Negative for fever, chills, and weight loss, Eyes: Negative for injury, sp3 pain, redness, and discharge, ENT: Negative for injury, pain, and discharge, Cardiovascular: Negative for chest pain, palpitations, and edema, Respiratory: Negative for shortness of breath, cough, wheezing, and pleuritic chest pain, Abdomen/GI: Negative for abdominal pain, nausea, vomiting, diarrhea, and constipation, Back: Negative for injury and pain, Skin: Negative for injury, rash, and discoloration, Neuro: Negative for headache, weakness, numbness, tingling, and seizure, Psych: Negative for depression, anxiety, suicide ideation, homicidal ideation, and hallucinations, Allergy/Immunology: Negative for hives, rash, and allergies, Endocrine: Negative for neck swelling, polydipsia, polyuria, polyphagia, and marked weight changes, Hematologic/Lymphatic: Negative for swollen nodes, abnormal bleeding, and unusual bruising, 20:55 All other systems are negative, Exam: 20:55 Constitutional: This is a well developed, well nourished patient who is awake, alert, sp3 and in no acute distress. Head/Face: Normocephalic, atraumatic. Eyes: Pupils equal round and reactive to light, extra-ocular motions intact. Lids and lashes normal. Conjunctiva and sclera are non-icteric and not injected. Cornea within normal limits. Periorbital areas with no swelling, redness, or edema. ENT: Nares patent. No nasal discharge, no septal abnormalities noted. External auditory canals are clear. Oropharynx with no redness, swelling, or masses, exudates, or evidence of obstruction, uvula midline. Mucous membranes moist. Chest/axilla: Normal chest wall appearance and motion. Nontender with no deformity. No lesions are appreciated. Cardiovascular: Regular rate and rhythm with a normal S1 and S2. No gallops, murmurs, or rubs. Normal PMI, no JVD. No pulse deficits. Respiratory: Lungs have equal breath sounds bilaterally, clear to auscultation and percussion. No rales, rhonchi or wheezes noted. No increased work of breathing, no retractions or nasal flaring. Abdomen/GI: Soft, non-tender, with normal bowel sounds. No distension or tympany. No guarding or rebound. No evidence of tenderness throughout. Back: No spinal tenderness. No costovertebral tenderness. Full range of motion. Male : Normal genitalia with no discharge or lesions. Skin: Warm, dry with normal turgor. Normal color with no rashes, no lesions, and no evidence of cellulitis. Neuro: Awake and alert, GCS 15, oriented to person, place, time, and situation. Cranial nerves II-XII grossly intact. Motor strength 5/5 in all extremities. Sensory grossly intact. Cerebellar exam normal. Normal gait. Psych: Awake, alert, with orientation to person, place and time. Behavior, mood, and affect are within normal limits. 20:55 Neck: No lymphadenopathy and vascular exam is normal. Patient has pain to palpation on the left trapezius muscle and it worsens upon lateral rotation to the left., Vital Signs: 18:44 BP 133 / 73; Pulse 57; Resp 17; Temp 98.1(O); Pulse Ox 100% on R/A; MAP 89 mmHg; Weight tm6 67.13 kg; Height 5 ft. 6 in. ; Pain 2/10; 21:06 BP 127 / 74; Pulse 59; Resp 16 S; Temp 98.3(O); Pulse Ox 100% on R/A; lg3 18:44 Body Mass Index 23.89 (67.13 kg, 167.64 cm) tm6 18:44 Pain Scale: Adult tm6 MDM: 20:20 Patient medically screened. sp3 20:55 Data reviewed: vital signs, nurses notes. ED course: 68-year-old male with probable sp3 torticollis. Clinically have ruled out myocardial infarction, infection, lymphadenopathy, vascular process, or any other critical process at this time. Vital signs are normal. We will treat with ketorolac IM and discharged on diclofenac with PCP follow-up. Patient has no chest pain, anginal equivalents, jaw pain, left arm pain, or any other concerning history of process at this time.. Administered Medications: 20:50 Drug: Ketorolac IM 30 mg IM once Route: IM; Site: left deltoid; lg3 21:08 Follow up: Response: No adverse reaction lg3 Disposition Summary: 11/06/23 20:57 Discharge Ordered Notes: Location: Home sp3 Condition: Stable sp3 Diagnosis - Torticollis sp3 Followup: sp3 - With: Private Physician - When: Upon discharge from the Emergency Department - Reason: Continuance of care Discharge Instructions: - Discharge Summary Sheet sp3 - Acute Torticollis, Adult sp3 Forms: - Medication Reconciliation Form sp3 - Antibiotic Education sp3 - Prescription Opioid Use sp3 - Patient Portal Instructions sp3 - Leadership Thank You Letter sp3 Prescriptions: - Diclofenac Sodium 75 mg Oral Tablet Sustained Release - take 1 tablet ORAL route 2 times per day; 30 tablet; Refills: 0, Product sp3 Selection Permitted Signatures: Jade Guerrero, RN RN lg3 Tam Rossi MD MD sp3 Ramu Smith RN RN tm6
--- NOTE | 2023-11-06 20:57 | ER ---
Nurse's Notes [facility] Name: Mp Moreno Age: 68 yrs Sex: Male : 1955 Arrival Date: 11/06/2023 Time: 18:22 Bed DX1 Private MD: Diagnosis: Torticollis Presentation: 11/05 18:45 Chief complaint: Patient states: two days ago I woke up and my neck was hurting. The tm6 pain comes and goes. When I put some ice on my neck it helped. Coronavirus screen: Vaccine status:. Coronavirus screen: Vaccine status: Patient reports receiving the 2nd dose of the covid vaccine. Ebola Screen: Patient negative for fever greater than or equal to 101.5 degrees Fahrenheit, and additional compatible Ebola Virus Disease symptoms Patient denies exposure to infectious person. Patient denies travel to an Ebola-affected area in the 21 days before illness onset. No symptoms or risks identified at this time. Initial Sepsis Screen: Does the patient meet any 2 criteria? No. Patient's initial sepsis screen is negative. Does the patient have a suspected source of infection? No. Patient's initial sepsis screen is negative. Risk Assessment: Do you want to hurt yourself or someone else? Patient reports no desire to harm self or others. Onset of symptoms was November 04, 2023. 18:45 Method Of Arrival: Ambulatory tm6 18:45 Acuity: ANTONETTE 4 tm6 Triage Assessment: 18:46 General: Appears in no apparent distress. Behavior is calm, cooperative. Pain: tm6 Complains of pain in neck Pain currently is 2 out of 10 on a pain scale. at worst was 10 out of 10 on a pain scale. Pain began 2-3 days ago. EENT: No signs and/or symptoms were reported regarding the EENT system. Neuro: Level of Consciousness is awake, alert, obeys commands, Oriented to person, place, time, situation. Cardiovascular: Patient's skin is warm and dry. Respiratory: Airway is patent Respiratory effort is even, unlabored, Respiratory pattern is regular, symmetrical. GI: No signs and/or symptoms were reported involving the gastrointestinal system. Abdomen is flat, non-distended. : No signs and/or symptoms were reported regarding the genitourinary system. Derm: No signs and/or symptoms reported regarding the dermatologic system. Musculoskeletal: Reports pain in neck since two days ago. Historical: - Allergies: 18:46 NKDA; tm6 - PMHx: 18:46 High Cholesterol; Hyperlipidemia; Hypertension; Kidney stones; Myocardial infarction; tm6 PUD; Cancer (In Remission); - PSHx: 18:46 Cholecystectomy; resection of intestines; Appendectomy; tm6 - Immunization history:: Client reports receiving the 2nd dose of the Covid vaccine. - Infectious Disease History:: Denies. - Social history:: Smoking status: Patient denies any tobacco usage or history of. Patient/guardian denies using alcohol. Screenin:06 [facility] ED Fall Risk Assessment (Adult) History of falling in the last 3 months, lg3 including since admission No falls in past 3 months (0 pts) Confusion or Disorientation No (0 pts) Intoxicated or Sedated No (0 pts) Impaired Gait No (0 pts) Mobility Assist Device Used No (0 pt) Altered Elimination No (0 pt) Score/Fall Risk Level 0 - 2 = Low Risk Oriented to surroundings, Maintained a safe environment, Educated pt \T\ family on fall prevention, incl call for assistance when getting out of bed, Assessed \T\ reinforced patient's understanding of fall precautions. Abuse screen: Denies threats or abuse. Denies injuries from another. Nutritional screening: No deficits noted. Tuberculosis screening: No symptoms or risk factors identified. Assessment: 21:06 General: Appears in no apparent distress. comfortable, Behavior is calm, cooperative. lg3 Pain: Complains of pain in neck. Neuro: No deficits noted. [place] Agitation-Sedation Scale (RASS): 0 - Alert and Calm Level of Consciousness is awake, alert, obeys commands, Oriented to person, place, time, situation. Cardiovascular: No deficits noted. Denies chest pain, shortness of breath, Capillary refill < 3 seconds Clubbing of nail beds is absent JVD is absent Patient's skin is warm and dry. Respiratory: No deficits noted. Airway is patent Respiratory effort is even, unlabored, Respiratory pattern is regular, symmetrical. GI: No deficits noted. No signs and/or symptoms were reported involving the gastrointestinal system. : No deficits noted. No signs and/or symptoms were reported regarding the genitourinary system. EENT: No deficits noted. No signs and/or symptoms were reported regarding the EENT system. Derm: No deficits noted. No signs and/or symptoms reported regarding the dermatologic system. Skin is intact, is healthy with good turgor, Skin is dry, Skin is normal, Skin temperature is warm. Musculoskeletal: No deficits noted. Circulation, motion, and sensation intact. Range of motion: intact in all extremities, Reports pain in neck. Vital Signs: 18:44 BP 133 / 73; Pulse 57; Resp 17; Temp 98.1(O); Pulse Ox 100% on R/A; MAP 89 mmHg; Weight tm6 67.13 kg; Height 5 ft. 6 in. ; Pain 2/10; 21:06 BP 127 / 74; Pulse 59; Resp 16 S; Temp 98.3(O); Pulse Ox 100% on R/A; lg3 18:44 Body Mass Index 23.89 (67.13 kg, 167.64 cm) tm6 18:44 Pain Scale: Adult tm6 ED Course: 18:25 Patient arrived in ED. mg5 18:46 Triage completed. tm6 18:46 Arm band placed on left wrist. tm6 20:20 Tam Rossi MD is Attending Physician. sp3 21:06 Patient has correct armband on for positive identification. Warm blanket given. Family lg3 accompanied patient. 21:06 No provider procedures requiring assistance completed. Patient did not have IV access lg3 during this emergency room visit. Administered Medications: 20:50 Drug: Ketorolac IM 30 mg IM once Route: IM; Site: left deltoid; lg3 21:08 Follow up: Response: No adverse reaction lg3 Medication: 21:06 VIS not applicable for this client. lg3 Outcome: 20:57 Discharge ordered by . sp3 21:06 Discharged to home ambulatory, lg3 21:06 Condition: stable 21:06 Discharge instructions given to patient, Instructed on discharge instructions, follow up and referral plans. medication usage, Demonstrated understanding of instructions, follow-up care, medications, 21:08 Patient left the ED. lg3 Signatures: Jade Guerrero RN RN lg3 Tam Rossi MD MD sp3 Cari Moore mg5 Ramu Smith RN RN 6
[2023-11-06] MEDS ORDERED: KETOROLAC 30 MG/ML INJ ONE (21:02)
[2023-11-07 01:17] VITALS: O2SAT 100
[2023-11-07 01:19] VITALS: BP 127/74; TEMP 98.3
== END 2023-11-06 21:08 | disposition home or self-care (01) ==
LOC: ER 18:22
DX: M43.6 Torticollis (principal)
CPT/HCPCS: 96372; 99284

== ENCOUNTER 2024-01-30 13:48 | Observation (INO) | payer OTHER ==
[2024-01-30 14:27] LABS: Absolute Eosinophils 0.1 K/uL (0-0.5); Absolute Lymphocytes (CBC) 0.7 K/uL (0.7-4.9); Absolute Monocytes 0.5 K/uL (0.1-1.3); Absolute Neutrophil 4.7 K/uL (1.8-8.0); Basophils % 0.5 % (0-1.3); Eosinophils % 1.8 % (0-4.4); Hematocrit 41.1 % (39.6-49.0); Hemoglobin 13.6 g/dL (13.6-17.9); Lymphocytes % 12.3 % (15.3-44.8); MCH 29.9 pg (27.0-35.0); MCHC 33.1 g/dL (32.0-36.0); MCV 90.3 fL (80-100); MPV 8.4 fL (7.6-11.3); Monocytes % 8.9 % (3.3-12.3); Neutrophils % 76.5 % (41.7-73.7); Platelets 197 thou/uL (152-406); RBC Red Blood Cell Count 4.55 M/uL (4.33-5.43)
[2024-01-30 14:33] LABS: PTT, Activated Partial Thromb 35.3 SECONDS (24.3-36.9); Protime INR 1.07
[2024-01-30 14:46] LABS: Albumin 3.8 g/dL (3.4-5.0); Albumin/Globulin Ratio 1.1 (1.1-1.8); Anion Gap 6.6 mEq/L (5.0-15.0); Bilirubin Direct 0.2 mg/dL (0-0.2); Bilirubin Indirect, Calculated 0.6 mg/dL (0.2-0.8); Bilirubin Total 0.8 mg/dL (0.2-1.0); Globulin 3.5 g/dL (2.3-3.5); Magnesium 2.2 mg/dL (1.6-2.4); Potassium 3.6 mEq/L (3.5-5.1); Protein, Total 7.3 g/dL (6.4-8.2); Troponin High Sensitivity 33.6 pg/mL (<58.9)
--- NOTE | 2024-01-30 15:50 | RAD REPORT ---
EXAMINATION: ONE VIEW CHEST XR CLINICAL INDICATION: Male, 68 years old.,near syncope TECHNIQUE: Frontal chest projection is submitted. Examination is limited by patient positioning and t echnique. COMPARISON: 04/12/2022 FINDINGS: The lungs are somewhat hypoinflated with improvement of aeration at the lung bases compared to the pr ior exam. Residual blunting of the costophrenic angles may relate to pleural thickening or atelectasis. No pneumothorax or sizable effusion. The heart is normal in size. Mediastinal contours are unremarkable. Right chest wall port catheter unchanged in position. IMPRESSION: No acute intrathoracic abnormalities. Findings as above.
--- NOTE | 2024-01-30 15:52 | RAD REPORT ---
EXAM: CT Head Brain Wo Cont HISTORY: near syncope COMPARISON: 04/12/2022 TECHNIQUE: Multiple contiguous axial images were obtained for a CT of the brain without contrast. Sag ittal and coronal reformats were performed. One or more of the following dose reduction techniques were used: Automated exposure control, adjus tment of the mA and kV according to patient size, and iterative reconstruction. Unless otherwise specified, incidental findings do not require dedicated imaging follow-up. FINDINGS: No evidence of hydrocephalus, intracranial hemorrhage, or extra-axial fluid collection. Near CSF dens ity left subinsular focus, may relate to a small remote lacunar infarct versus prominence of perivascular spaces, stable. Mild brain atrophy with mild periventricular and deep white matter chronic microvascular ischemic ch anges, stable. The calvarium is intact. The visualized paranasal sinuses and mastoid air cells are essentially clear . IMPRESSION: No evidence of acute intracranial abnormality.
--- NOTE | 2024-01-30 16:05 | ER ---
Nurse's Notes [facility] Name: Mp Moreno Age: 68 yrs Sex: Male : 1955 Arrival Date: 01/30/2024 Time: 13:48 Bed 2 Private MD: Archie Blunt Diagnosis: Syncope Near Presentation: 01/29 13:53 Chief complaint: EMS states: Near syncopal episodes x 3. Coronavirus screen: Vaccine ph status: Patient reports being unvaccinated. Ebola Screen: No symptoms or risks identified at this time. Initial Sepsis Screen: Does the patient meet any 2 criteria? No. Patient's initial sepsis screen is negative. Does the patient have a suspected source of infection? No. Patient's initial sepsis screen is negative. Risk Assessment: Do you want to hurt yourself or someone else? Patient reports no desire to harm self or others. Onset of symptoms was January 30, 2024. 13:53 Method Of Arrival: EMS: [facility] ph 13:53 Acuity: ANTONETTE 3 ph Historical: - Allergies: 13:54 NKDA; ph - PMHx: 13:54 Cancer (In Remission); High Cholesterol; Hyperlipidemia; Hypertension; Kidney stones; ph Myocardial infarction; PUD; - PSHx: 13:54 Appendectomy; Cholecystectomy; resection of intestines; ph - Immunization history:: Adult Immunizations unknown. - Infectious Disease History:: Denies. - Social history:: Smoking status: Patient denies any tobacco usage or history of. Screenin:22 [facility] ED Fall Risk Assessment (Adult) History of falling in the last 3 months, ko1 including since admission No falls in past 3 months (0 pts) Confusion or Disorientation No (0 pts) Intoxicated or Sedated No (0 pts) Impaired Gait No (0 pts) Mobility Assist Device Used No (0 pt) Altered Elimination No (0 pt) Score/Fall Risk Level 0 - 2 = Low Risk Oriented to surroundings, Maintained a safe environment, Educated pt \T\ family on fall prevention, incl call for assistance when getting out of bed, Assessed \T\ reinforced patient's understanding of fall precautions, Hourly rounding (assess needs \T\ fall precautionary measures) done. Abuse screen: Denies threats or abuse. Denies injuries from another. Nutritional screening: No deficits noted. Tuberculosis screening: No symptoms or risk factors identified. Assessment: 14:22 General: Appears in no apparent distress. Behavior is calm, cooperative, appropriate ko1 for age. Pain: Denies pain. Neuro: No deficits noted. Cardiovascular: Reports syncope. Respiratory: No deficits noted. GI: No deficits noted. No signs and/or symptoms were reported involving the gastrointestinal system. : No deficits noted. No signs and/or symptoms were reported regarding the genitourinary system. EENT: No deficits noted. No signs and/or symptoms were reported regarding the EENT system. Derm: No deficits noted. No signs and/or symptoms reported regarding the dermatologic system. Musculoskeletal: No deficits noted. No signs and/or symptoms reported regarding the musculoskeletal system. Vital Signs: 13:53 BP 124 / 74; Pulse 56; Resp 18; Temp 97.9; Pulse Ox 98% ; Weight 63.5 kg; Height 5 ft. ph 7 in. ; 15:30 BP 112 / 64; Pulse 56; Resp 16; Pulse Ox 100% ; ko1 16:38 BP 113 / 69; Pulse 56; Resp 16; Pulse Ox 100% ; ko1 13:53 Body Mass Index 21.93 (63.50 kg, 170.18 cm) ph ED Course: 13:49 Patient arrived in ED. as 13:49 Archie Blunt MD is Private Physician. as 13:51 Livan Goldstein DO is Attending Physician. ms3 13:54 Triage completed. ph 13:54 Arm band placed on Patient placed in an exam room, on a stretcher. ph 14:02 Micaela Bustos, SONALI is Primary Nurse. ko1 14:21 Patient has correct armband on for positive identification. Bed in low position. Call ko1 light in reach. Side rails up X2. Provided Education on: labs. Client placed on continuous cardiac and pulse oximetry monitoring. NIBP monitoring applied. dumpman on. Door closed. Noise minimized. Lights dimmed. Warm blanket given. Pillow given. 14:21 Basic Metabolic Panel Sent. ko1 14:21 CBC with Diff Sent. ko1 14:21 Hepatic Function Sent. ko1 14:21 Magnesium Sent. ko1 14:21 Protime (+inr) Sent. ko1 14:21 Ptt, Activated Sent. ko1 14:21 Troponin High Sensitivity Sent. ko1 14:21 Initial lab(s) drawn, by me, sent to lab. EKG done, by ED staff, reviewed by Livan Goldstein DO. Inserted saline lock: 22 gauge in right forearm, using aseptic technique. Blood collected. Flushed with 10 mL NS. 14:37 CT Head Brain wo Cont In Process Unspecified. EDMS 14:53 Chest Single View XRAY In Process Unspecified. EDMS 15:30 No provider procedures requiring assistance completed. ko1 16:01 ED physician to see patient. ko1 16:05 Gracie Ware MD is Hospitalizing Provider. ms3 17:43 Patient admitted, IV remains in place. ko1 Administered Medications: No medications were administered Medication: 14:22 VIS not applicable for this client. ko1 Outcome: 16:05 Decision to Hospitalize by Provider. ms3 17:43 Condition: stable ko1 17:43 Instructed on the need for admit, 17:59 Admitted to Tele accompanied by tech, via wheelchair, room 202, with chart, ko1 18:08 Patient left the ED. jb4 Signatures: Dispatcher [employer] EDJemima Lorenz Patricia, RN RN Juan R Goodwin, RN RN jb4 Livan Goldstein DO DO ms3 Micaela Bustos, RN RN ko1
--- NOTE | 2024-01-30 16:05 | EDPHYS ---
Physician Documentation [facility] Name: Mp Moreno Age: 68 yrs Sex: Male : 1955 Arrival Date: 01/30/2024 Time: 13:48 Bed 2 Private MD: Archie Blunt ED Physician Livan Goldstein HPI: 01/29 14:05 This 68 yrs old Male presents to ER via EMS with complaints of Near Syncope. ms3 14:05 Mp Moreno presents to the Emergency Department after experiencing three near-syncope ms3 episodes today. The episodes occurred while he was seated, and he reported feeling a sensation of spinning before nearly passing out. His family reported the incidents. The patient does not recall most of the episodes but does remember feeling unwell and telling his daughter about it. He reports no pain, chest pain, or vomiting, and is unsure about experiencing nausea. He has a history of colon cancer, which he reports is no longer active, and believes he may have high blood pressure.. Historical: - Allergies: 13:54 NKDA; ph - PMHx: 13:54 Cancer (In Remission); High Cholesterol; Hyperlipidemia; Hypertension; Kidney stones; ph Myocardial infarction; PUD; - PSHx: 13:54 Appendectomy; Cholecystectomy; resection of intestines; ph - Immunization history:: Adult Immunizations unknown. - Infectious Disease History:: Denies. - Social history:: Smoking status: Patient denies any tobacco usage or history of. ROS: 14:05 Constitutional: Negative for fever, and chills. Cardiovascular: Negative for chest ms3 pain, and palpitations. Respiratory: Negative for shortness of breath, cough, wheezing, and pleuritic chest pain, Abdomen/GI: Negative for abdominal pain, nausea, vomiting, diarrhea, and constipation, MS/Extremity: Negative for injury and deformity, Skin: Negative for injury, rash, and discoloration, Exam: 14:05 Constitutional: This is a well developed, well nourished patient who is awake, alert, ms3 and in no acute distress. Head/Face: Normocephalic, atraumatic. Chest/axilla: Normal chest wall appearance and motion. Nontender with no deformity. Cardiovascular: Regular rate and rhythm with a normal S1 and S2. No gallops, murmurs, or rubs. Normal PMI, no JVD. No pulse deficits. Respiratory: Lungs have equal breath sounds bilaterally, clear to auscultation and percussion. No rales, rhonchi or wheezes noted. No increased work of breathing, no retractions or nasal flaring. Abdomen/GI: Soft, non-tender, with normal bowel sounds. No distension or tympany. No guarding or rebound. No evidence of tenderness throughout. Skin: Warm, dry with normal turgor. Normal color with no rashes, no lesions, and no evidence of cellulitis. 14:05 ECG was reviewed by the Attending Physician. ms3 Vital Signs: 13:53 BP 124 / 74; Pulse 56; Resp 18; Temp 97.9; Pulse Ox 98% ; Weight 63.5 kg; Height 5 ft. ph 7 in. ; 15:30 BP 112 / 64; Pulse 56; Resp 16; Pulse Ox 100% ; ko1 16:38 BP 113 / 69; Pulse 56; Resp 16; Pulse Ox 100% ; ko1 13:53 Body Mass Index 21.93 (63.50 kg, 170.18 cm) ph MDM: 13:51 Medical Screening Exam initiated ms3 14:05 Differential Diagnosis: cardiac arrhythmia, idiopathic syncope, vasovagal episode. ms3 16:04 Data reviewed: vital signs, nurses notes, lab test result(s), EKG, radiologic studies, ms3 and as a result, I will admit patient. Consideration of Admission/Observation Patient was admitted/placed on observation. Management of patient was discussed with the following: Hospitalist: Dr Ware. Independent interpretation of the following test(s) in the Emergency Department EKG: See my EKG interpretation above X-Ray: My interpretation is CXR image reviewed by me does not show pulmonary edema or pneumonia. Historians other than the Patient:. Historians other than the Patient: EMS: . Counseling: I had a detailed discussion with the patient and/or guardian regarding the historical points, exam findings, and any diagnostic results supporting the discharge/admit diagnosis, the need for further work-up and treatment in the hospital, to return to the emergency department if symptoms worsen or persist or if there are any questions or concerns that arise at home. ED course: Discussed labs, imaging, ekg with patient. He understands/ agrees with observation. Discussed case with Dr Ware and he accepts patient.. 01/29 13:51 Order name: Basic Metabolic Panel; Complete Time: 14:53 ms3 01/29 13:51 Order name: CBC with Diff; Complete Time: 14:53 ms3 01/29 13:51 Order name: Hepatic Function; Complete Time: 14:53 ms3 01/29 13:51 Order name: Magnesium; Complete Time: 14:53 ms3 01/29 13:51 Order name: Protime (+inr); Complete Time: 14:53 ms3 01/29 13:51 Order name: Ptt, Activated; Complete Time: 14:53 ms3 01/29 13:51 Order name: Troponin High Sensitivity; Complete Time: 14:53 ms3 01/29 17:11 Order name: CBC with Automated Diff EDMS 01/29 17:11 Order name: CBC with Automated Diff EDMS 01/29 17:11 Order name: Comprehensive Metabolic Panel EDMS 01/29 17:11 Order name: Comprehensive Metabolic Panel EDMS 01/29 17:11 Order name: Lipid Profile EDMS 01/29 17:11 Order name: Lipid Profile EDMS 01/29 17:11 Order name: Protime (+INR) EDMS 01/29 17:11 Order name: Protime (+INR) EDMS 01/29 17:11 Order name: PTT, Activated Partial Thromb EDMS 01/29 17:11 Order name: PTT, Activated Partial Thromb EDMS 01/29 17:11 Order name: Troponin High Sensitivity EDMS 01/29 13:51 Order name: CT Head Brain wo Cont; Complete Time: 15:55 ms3 01/29 13:51 Order name: Chest Single View XRAY; Complete Time: 15:55 ms3 01/29 17:11 Order name: Echo with Doppler EDMS 01/29 13:51 Order name: Cardiac monitoring; Complete Time: 13:55 ms3 01/29 13:51 Order name: EKG - Nurse/Tech; Complete Time: 14:02 ms3 01/29 13:51 Order name: IV Saline Lock; Complete Time: 14:21 ms3 01/29 13:51 Order name: Labs collected and sent; Complete Time: 14:21 ms3 01/29 13:51 Order name: NPO; Complete Time: 13:55 ms3 01/29 13:51 Order name: O2 Per Protocol; Complete Time: 13:55 ms3 01/29 13:51 Order name: O2 Sat Monitoring; Complete Time: 13:55 ms3 EC:05 Rate is 52 beats/min. Rhythm is regular. QRS [place] is Normal. CT interval is prolonged. ms3 QT interval is normal. Clinical impression: Normal ECG and with 1st degree AV block. Interpreted by me. Reviewed by me. Administered Medications: No medications were administered Disposition Summary: 01/30/24 16:05 Hospitalization Ordered Notes: Hospitalization Status: Observation ms3 Provider: Gracie Ware ms3 Location: Telemetry/MedSurg (observation) ms3 Condition: Stable ms3 Problem: new ms3 Symptoms: are unchanged ms3 Bed/Room Type: Standard ms3 Room Assignment: 202(01/30/24 17:21) ty Diagnosis - Syncope Near ms3 Forms: - Medication Reconciliation Form ms3 - SBAR form ms3 - Leadership Thank You Letter ms3 Signatures: Dispatcher [employer] EDMS Kerri Marie RN RN ph Goldstein, Livan, DO DO ms3 William Leger Corrections: (The following items were deleted from the chart) 13:52 13:52 BASIC METABOLIC PANEL+C.LAB.BRZ ordered. EDMS EDMS 13:52 13:52 CBC+H.LAB.BRZ ordered. EDMS EDMS 13:52 13:52 HEPATIC FUNCTION+C.LAB.BRZ ordered. EDMS EDMS 13:52 13:52 MAGNESIUM+C.LAB.BRZ ordered. EDMS EDMS 13:52 13:52 PROTIME (+INR)+COAG.LAB.BRZ ordered. EDMS EDMS 13:52 13:52 PTT, ACTIVATED+COAG.LAB.BRZ ordered. EDMS EDMS 13:52 13:52 Troponin High Sensitivity+C.LAB.BRZ ordered. EDMS EDMS 13:52 13:52 Head Brain Wo Cont+CT.RAD.BRZ ordered. EDMS EDMS 13:52 13:52 Chest Single View+RAD.RAD.BRZ ordered. EDMS EDMS 17:21 16:05 ms3 ty
[2024-01-30] MEDS ORDERED: ACETAMINOPHEN 500 MG TAB PO PRN (17:07)
[2024-01-30] MEDS ORDERED: MORPHINE 2 MG/ML SYR IV PRN (17:07)
[2024-01-30] MEDS ORDERED: ONDANSETRON 4 MG/2 ML VIAL IV PRN (17:07)
--- NOTE | 2024-01-30 17:11 | P.HP ---
Certification for Inpatient Patient admitted to: Observation With expected LOS: <2 Midnights Patient will require the following post-hospital care: None Practitioner: I am a practitioner with admitting privileges, knowledge of patient current condition, hospital course, and medical plan of care. Services: Services provided to patient in accordance with Admission requirements found in Title 42 Section 412.3 of the Code of Federal Regulations Patient History Date of Service: 01/30/24 Reason for admission: Near syncope History of Present Illness: Patient is a 68-year-old gentleman came to the hospital with dizziness. Patient was in the bathroom when he passed out. His son came to check on him and because he was not looking good they called EMS. EMS brought him into the emergency room. Patient stated he was having some chest pressure and some dizziness so decided to stay overnight. Patient will be admitted for observation. Patient has history of coronary artery disease with stent placement. 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 He is on statin therapy as well. Further workup as an outpatient if his in-house workup is negative. 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 moist/pink, EOMI, Sclerae nonicteric Neck: Supple, 2+ carotid pulse no bruit, No LAD, Without JVD or thyroid abnorma lity Respiratory: Clear to auscultation bilaterally, Normal air movement Cardiovascular: Regular rate/rhythm, Normal S1 S2 Gastrointestinal: Normal bowel sounds, Soft and benign, Non-distended, No tenderness Musculoskeletal: No clubbing, No swelling, No tenderness Integumentary: No rashes Neurological: Normal gait, Normal speech, Normal strength at 5/5 x4 extr, Normal tone, Sensation intact, Cranial nerves 3-12 intact, Normal affect Lymphatics: No axilla or inguinal lymphadenopathy - Studies Laboratory Data (last 24 hrs) 01/30/24 01/30/24 01/30/24 14:15 14:15 14:15 WBC 6.10 Hgb 13.6 Hct 41.1 Plt Count 197 PT 12.0 INR 1.07 APTT 35.3 Sodium 137 Potassium 3.6 BUN 15 Creatinine 1.36 H Glucose 107 H Magnesium 2.2 Total Bilirubin 0.8 AST 26 ALT 30 Alkaline Phosphatase 129 H Assessment & Plan - Problems (Diagnosis) (1) Near syncope Current Visit: Yes Status: Acute (2) HTN (hypertension) Current Visit: Yes Status: Acute (3) Hyperlipemia Current Visit: Yes Status: Acute - Plan Plan: 1. Monitor on telemetry 2. Carotid Doppler 3. Echocardiogram 4. Outpatient cardiology workup. Discharge Plan: Home Plan to discharge in: 24 Hours - Advance Directives Does patient have a Living Will: No Does patient have a Durable POA for Healthcare: No - Code Status/Comfort Care Code Status Assessed: Yes Code Status: Full Code Critical Care: No Time Spent Managing PTS Care (In Minutes): 45
[2024-01-30 18:15] VITALS: O2SAT 100
[2024-01-30] MEDS: MORPHINE 2 MG/ML SYR IV SCH (20:00)
[2024-01-30 20:57] VITALS: BMI 21.9
[2024-01-30] MEDS: NA CHLORIDE 0.9% 1,000 ML IV SCH (21:02)
[2024-01-30] MEDS: ATORVASTATIN 40 MG TAB PO SCH (21:11)
[2024-01-30] MEDS: GABAPENTIN 300 MG CAP PO SCH (21:12)
[2024-01-31 06:28] LABS: Absolute Eosinophils 0.1 K/uL (0-0.5); Absolute Lymphocytes (CBC) 0.8 K/uL (0.7-4.9); Absolute Monocytes 0.7 K/uL (0.1-1.3); Absolute Neutrophil 3.6 K/uL (1.8-8.0); Basophils % 0.3 % (0-1.3); Eosinophils % 1.5 % (0-4.4); Hematocrit 36.5 % (39.6-49.0); Hemoglobin 12.8 g/dL (13.6-17.9); Lymphocytes % 15.3 % (15.3-44.8); MCH 30.8 pg (27.0-35.0); MPV 8.4 fL (7.6-11.3); Monocytes % 13.4 % (3.3-12.3); Neutrophils % 69.5 % (41.7-73.7); Nucleated Red Blood Cells % 0.1 % (0-0); Platelets 192 thou/uL (152-406); RBC Red Blood Cell Count 4.14 M/uL (4.33-5.43); Red Cell Distribution Width 14.2 % (12.1-15.2)
--- NOTE | 2024-01-31 06:34 | P.PN ---
Subjective Date of Service: 01/31/24 Chief Complaint: Near syncope Physical Examination - Vital Signs Temperature: 98.1 F Blood Pressure: 133/66 Pulse: 65 Respirations: 16 Pulse Ox (%): 97 - Studies Laboratory Data (last 24 hrs) 01/30/24 01/30/24 01/30/24 14:15 14:15 14:15 WBC 6.10 Hgb 13.6 Hct 41.1 Plt Count 197 PT 12.0 INR 1.07 APTT 35.3 Sodium 137 Potassium 3.6 BUN 15 Creatinine 1.36 H Glucose 107 H Magnesium 2.2 Total Bilirubin 0.8 AST 26 ALT 30 Alkaline Phosphatase 129 H Assessment And Plan - Plan Assessment & Plan - Problems (Diagnosis) (1) Near syncope Current Visit: Yes Status: Acute (2) HTN (hypertension) Current Visit: Yes Status: Acute (3) Hyperlipemia Current Visit: Yes Status: Acute Discharge Plan: Home Plan to discharge in: 24 Hours - Advance Directives Does patient have a Living Will: No Does patient have a Durable POA for Healthcare: No - Code Status/Comfort Care Code Status Assessed: Yes Code Status: Full Code Critical Care: No Time Spent Managing PTS Care (In Minutes): 45 Discharge Plan: Home Critical Care: No Time Spent Managing PTS Care (In Minutes): 35
[2024-01-31 06:40] LABS: PT Prothrombin Time 11.9 SECONDS (9.4-12.5); PTT, Activated Partial Thromb 38.7 SECONDS (24.3-36.9); Protime INR 1.06
[2024-01-31 06:58] LABS: Albumin 3.2 g/dL (3.4-5.0); Anion Gap 7.7 mEq/L (5.0-15.0); Bilirubin Total 0.5 mg/dL (0.2-1.0); Globulin 3.2 g/dL (2.3-3.5); Potassium 3.7 mEq/L (3.5-5.1); Protein, Total 6.4 g/dL (6.4-8.2); Troponin High Sensitivity 31.2 pg/mL (<58.9)
[2024-01-31] MEDS: VITAMIN D 5,000 UNIT CAP PO SCH (10:13)
[2024-01-31] MEDS: LOSARTAN POTASSIUM 50 MG TABLET PO SCH (10:13)
[2024-01-31] MEDS: PANTOPRAZOLE 40MG TABLET PO SCH (10:14)
[2024-01-31] MEDS: FLU (Fluarix Triv) TS24-25(6MOS UP)/PF 45 MCG/0.5 ML Syringe IM ONE (12:00)
--- NOTE | 2024-01-31 14:12 | RAD REPORT ---
EXAMINATION: CAROTID DUPLEX ULTRASOUND CLINICAL INDICATION: near syncope TECHNIQUE: Real-time grayscale, color flow and spectral Doppler sonographic images were obtained of t he extracranial carotid system using a linear transducer. COMPARISON: No prior exam. FINDINGS: RIGHT: Common carotid artery: 108 cm/s Internal carotid artery: 84 cm/s External carotid artery: 123 cm/s Right ICA/CCA ratio: 0.8 Plaque: No significant plaquing seen. Vertebral artery Antegrade LEFT: Common carotid artery: 86 cm/s Internal carotid artery: 81 cm/s External carotid artery: 123 cm/s Left ICA/CCA ratio: 0.9 Plaque: No significant plaquing seen. Vertebral artery Antegrade IMPRESSION: No hemodynamically significant stenosis (greater than 50%) within the extracranial internal carotid a rteries. The degrees of stenosis, if any, are quantified according to the consensus statement of the Society o f Radiologists in Ultrasound (SRUS). Please refer to Polo E, Arpit C, Markus G et al. Carotid Artery Stenosis: Reveles-Scale and Doppler US Diagnosis--Society of Radiologists in Ultrasound Consensus Conference. Radiology. 2003;229(2):340-6.
[2024-01-31] MEDS: PNEUMOCOCCAL VACCINE 0.5 ML IMVAC ONE (14:38)
--- NOTE | 2024-01-31 17:06 | P.DS ---
Admission Date: 01/30/24 Discharge Date: 01/31/24 Disposition: ROUTINE DISCHARGE Discharge Condition: GOOD Reason for Admission: Near syncope Brief History of Present Illness: 68-year-old male with a past medical history hypertension, hyperlipidemia, kidney stones, [place], peptic ulcer disease, presented to the emergent emergency room with near syncopal episode. He reports not feeling well. He reports symptoms resolved when arriving to the ED. He denies chest pain, shortness of breath, nausea vomiting fever. ER evaluation 3 BP 124 / 74; Pulse 56; Resp 18; Temp 97.9; Pulse Ox 98% 5 Rate is 52 beats/min. Rhythm is regular. QRS [place] is Normal. [place] interval is prolonged. QT interval is normal. Clinical impression: Normal ECG and with 1st degree AV block. CT of the head no acute abnormality, chest x-ray no acute abnormality, CBC, CMP, unremarkable. Plan to admit for near syncopal episode, Physical Examination General: Alert, Oriented x3 Respiratory: Clear to auscultation bilaterally, Normal air movement Cardiovascular: Regular rate/rhythm, Normal S1 S2, No murmurs Gastrointestinal: Soft and benign, Non-distended, No tenderness Integumentary: No rashes Neurological: Normal speech, Normal tone, Sensation intact, Normal affect Hospital Course: 68-year-old male with a past medical history hypertension, hyperlipidemia, kidney stones, [place], peptic ulcer disease, presented to the emergent emergency room with near syncopal episode. He reports not feeling well. He reports symptoms resolved when arriving to the ED. He denies chest pain, shortness of breath, nausea vomiting fever. ER evaluation 3 BP 124 / 74; Pulse 56; Resp 18; Temp 97.9; Pulse Ox 98% 5 Rate is 52 beats/min. Rhythm is regular. QRS [place] is Normal. [place] interval is prolonged. QT interval is normal. Clinical impression: Normal ECG and with 1st degree AV block. CT of the head no acute abnormality, chest x-ray no acute abnormality, CBC, CMP, unremarkable. Carotid Dopplers were negative, tolerating diet, has been asymptomatic since arrival from the ER, no reported chest pain, shortness of breath, nausea vomiting dizziness, may follow-up with cardiology outpatient for additional cardiac test Assessment Near syncope, carotid Dopplers negative, follow-up with cardiology for additional cardiac testing EKG, first-degree AV block with prolonged QT follow-up with cardiology for additional testing Hypertension, high blood pressure medications resumed, Orthostatic vital signs stable Hyperlipidemia resume home meds History of colon cancer Continue home medicines as previously prescribed GOAL: Clear understanding of disease process INSTRUCTIONS: Physician Discharge Instructions: -Follow-up with cardiology outpatient for additional cardiac test -Follow-up with PCP in 1 to 2 weeks -Please call Dr. Ware at [phone] if any questions regarding hospital stay -Please call nursing station at [phone] if any nursing or medication questions -Return to the emergency room if symptoms worsen Diet: ADA, low sodium Activity: Fall precautions Vital Signs/Physical Exam: Temp Pulse Resp BP Pulse Ox 97.8 F 75 16 155/75 H 99 01/31/24 12:00 01/31/24 12:00 01/31/24 12:00 01/31/24 12:00 01/31/24 12:00 Laboratory Data at Discharge: WBC 5.20 thou/uL (4.3-10.9) 01/31/24 06:11 Hgb 12.8 g/dL (13.6-17.9) L 01/31/24 06:11 Hct 36.5 % (39.6-49.0) L 01/31/24 06:11 Plt Count 192 thou/uL (152-406) 01/31/24 06:11 PT 11.9 SECONDS (9.4-12.5) 01/31/24 06:11 INR 1.06 01/31/24 06:11 APTT 38.7 SECONDS (24.3-36.9) H 01/31/24 06:11 Sodium 138 mEq/L (136-145) 01/31/24 06:11 Potassium 3.7 mEq/L (3.5-5.1) 01/31/24 06:11 BUN 16 mg/dL (7-18) 01/31/24 06:11 Creatinine 1.09 mg/dL (0.70-1.30) 01/31/24 06:11 Glucose 105 mg/dL (74-106) 01/31/24 06:11 Magnesium 2.2 mg/dL (1.6-2.4) 01/30/24 14:15 Total Bilirubin 0.5 mg/dL (0.2-1.0) 01/31/24 06:11 AST 20 U/L (15-37) 01/31/24 06:11 ALT 26 U/L (16-61) 01/31/24 06:11 Alkaline Phosphatase 127 U/L (45-117) H 01/31/24 06:11 Triglycerides 102 mg/dL (<150) 01/31/24 06:11 Cholesterol 115 mg/dL (<200) 01/31/24 06:11 HDL Cholesterol 36 mg/dL (40-60) L 01/31/24 06:11 Cholesterol/HDL Ratio 3.19 01/31/24 06:11 Home Medications: Gabapentin 300 mg PO TID 08/17/20 Pantoprazole [Protonix Tab*] 40 mg PO DAILY 08/17/20 Atorvastatin Calcium [Lipitor] 1 tab PO BEDTIME 04/14/22 Cholecalciferol (Vitamin D3) [D3-5000] 1 tab PO DAILY 04/14/22 Losartan Potassium [Cozaar*] 1 tab PO DAILY 04/14/22 Aspirin [Aspirin EC 81 MG] 81 mg PO DAILY #30 tab 01/31/24 New Medications: Aspirin [Aspirin EC 81 MG] 81 mg PO DAILY #30 tab Physician Discharge Instructions: -DC IV and DC home -Follow-up with PCP in 1 to 2 weeks -Follow-up with Cardiology in 1 to 2 weeks -Please call Dr. Ware at [phone] if any questions regarding hospital stay -Please call nursing station at [phone] if any nursing or medication questions -Return to the emergency room if symptoms worsen Diet: AHA Activity: Fall precautions Followup: Archie Blunt MD [Primary Care Provider] - Time spent managing pt's care (in minutes): 45
[2024-01-31 17:24] VITALS: BP 140/80; TEMP 98
--- NOTE | 2024-02-01 13:41 | EKG ---
Test Date: 2024-01-30 Test Time: 13:59:38 Jack Machine Operator: DAYLIN MEASUREMENT RESULTS: Intervals: Rate: 52 [place]: 232 QRSD: 88 QT: 400 QTc: 372 [place]: P: 42 [place]: 232 QRS: 11 T: 69 INTERPRETIVE STATEMENTS: Sinus bradycardia with 1st degree AV block Anterior infarct, age undetermined Abnormal ECG Compared to ECG 04/13/2022 12:31:07 No significant changes Electronically Signed On 02-01-24 13:37:05 HAY SORTER by Pako Salazar
--- NOTE | 2024-02-04 10:42 | ECHO ---
HEIGHT: 5 ft 7 in WEIGHT: 140 lb 0 oz DATE OF STUDY: 01/31/[address]: Gracie Ware MD 2-DIMENSIONAL: YES M.MODE: YES DOPPLER: YES COLOR FLOW: YES TDS: NO PORTABLE: YES DEFINITY: NO BUBBLE STUDY: NO DIAGNOSIS: NEAR SYNCOPE CARDIAC HISTORY: CATHERIZATION:YES SURGERY: NO PROSTHETIC VALVE: NO PACEMAKER: NO MEASUREMENTS (cm) DIASTOLIC (NORMALS) SYSTOLIC (NORMALS) IVSd 1.0 (0.6-1.2) LA Diam 2.8 (1.9-4.0) LVEF 60-65% LVIDd 4.1 (3.5-5.7) LVIDs 2.8 (2.0-3.5) %FS 33% LVPWd 1.2 (0.6-1.2) Ao Diam 2.7 (2.0-3.7) 2 DIMENSIONAL ASSESSMENT: RIGHT ATRIUM: NORMAL LEFT ATRIUM: NORMAL RIGHT VENTRICLE: NORMAL LEFT VENTRICLE: NORMAL TRICUSPID VALVE: NORMAL MITRAL VALVE: NORMAL PULMONIC VALVE: NORMAL AORTIC VALVE: NORMAL PERICARDIAL EFFUSION: NONE AORTIC ROOT: NORMAL LEFT VENTRICULAR WALL MOTION: NORMAL. DOPPLER/COLOR FLOW: NORMAL. COMMENTS: 1. NORMAL LEFT VENTRICULAR SYSTOLIC FUNCTION. LEFT VENTRICULAR EJECTION FRACTION 60-65%. NORMAL WALL MOTION. 2. NORMAL DIASTOLIC FUNCTION. TECHNOLOGIST: VAN SELF
== END 2024-01-31 19:03 | disposition home or self-care (01) ==
LOC: ER 13:48 → ERHOLD 17:07 → 2ND 17:59
PROVIDERS: ADMIT Hospitalist; ATTEND Hospitalist
DX: I44.0 Atrioventricular block, first degree (principal); I25.10 Atherosclerotic heart disease of native coronary artery without angina pectoris; R55 Syncope and collapse; I10 Essential (primary) hypertension; E78.5 Hyperlipidemia, unspecified; I25.2 Old myocardial infarction; Z95.5 Presence of coronary angioplasty implant and graft; Z87.891 Personal history of nicotine dependence; Z85.038 Personal history of other malignant neoplasm of large intestine; Z23 Encounter for immunization
CPT/HCPCS: 93005; 93306; 85025 ×2; 80048; 36415; 83735; 85610 ×2; 80061; 80076; 85730 ×2; 84484 ×3; 80053; 70450; 71045; 90471; 93880; 90732; 99285; J7030 ×2; G0378 ×3; J2270